=== PATIENT | male | born 1965 | race Hispanic/Latino ===

== ENCOUNTER 2021-03-18 23:41 | Emergency (ER) | payer OTHER ==
--- OUTSIDE RECORDS SUMMARY | 2021-03-18 23:44 | XMS REPORT | Continuity of Care Document ---
:1965 Author Organization [facility] t Address [address] [place] [address] Dr. Contreras [address] [place] [id number] Care Team Providers Name Role Phone Unavailable Unavailable Unavailable Problems This patient has no known problems. Allergies, Adverse Reactions, Alerts This patient has no known allergies or adverse reactions. Medications This patient has no known medications. Procedures This patient has no known procedures. Encounters Start End Encounter Admission Attending Care Care Encounter Source Date/Time Date/Time Type Type Clinicians Facility Department ID 2019-11-28 Outpatient [facility] [id number] [facility] 08:29:26 2019-10-30 2019-10-30 Inpatient E [facility] [address] [facility] 03:07:00 15:15:00 Results This patient has no known results.
[2021-03-19 00:58] LABS: BUN Blood Urea Nitrogen 13 mg/dL (7-18); Bicarbonate 32 mmol/L (21-32); Glucose Level 202 mg/dL (74-106); Potassium 3.5 mmol/L (3.5-5.1); Sodium Level 139 mmol/L (136-145)
[2021-03-19 00:59] LABS: ALT/SGPT 22 U/L (12-78); AST/SGOT 16 U/L (15-37); Albumin 3.5 g/dL (3.4-5.0); Alkaline Phosphatase 142 U/L (45-117); Bilirubin Direct 0.3 mg/dL (0-0.2); Bilirubin Total 0.8 mg/dL (0.2-1.0); Lipase 65 U/L (73-393)
[2021-03-19 01:06] LABS: Absolute Lymphocytes (CBC) 1.7 K/uL (0.7-4.9); Basophils % 0.5 % (0-1.3); Hematocrit 38.7 % (39.6-49.0); Lymphocytes % 21.6 % (15.3-44.8); MPV 11.3 fL (7.6-11.3); RBC Red Blood Cell Count 4.85 M/uL (4.33-5.43)
[2021-03-19] MEDS ORDERED: FENTANYL CITR 100 MCG/2 ML ONE (01:41)
[2021-03-19] MEDS ORDERED: ONDANSETRON 4 MG/2 ML VIAL ONE (01:42)
--- NOTE | 2021-03-19 02:06 | ER ---
Nurse's Notes [facility] Name: Tej Fragoso Age: 55 yrs Sex: Male : 1965 Arrival Date: 03/18/2021 Time: 23:43 Bed 6 Private MD: Diagnosis: Plantar fascitis ;Lymphedema, not elsewhere classified;Hyperglycemia, unspecified Presentation: 03/18 23:50 Chief complaint: EMS states: patient complaining of left leg swelling, pain and edema. rr5 23:50 Coronavirus screen: Client denies travel out of the [place] in the last 14 days. At this rr5 time, the client does not indicate any symptoms associated with coronavirus-19. Ebola Screen: Patient negative for fever greater than or equal to 101.5 degrees Fahrenheit, and additional compatible Ebola Virus Disease symptoms Patient denies exposure to infectious person. Patient denies travel to an Ebola-affected area in the 21 days before illness onset. Initial Sepsis Screen: Does the patient meet any 2 criteria? No. Patient's initial sepsis screen is negative. Does the patient have a suspected source of infection? Yes: Skin breakdown/wound. Risk Assessment: Do you want to hurt yourself or someone else? Patient reports no desire to harm self or others. Onset of symptoms was March 15, 2021. 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 - Social history:: Smoking status: unknown Patient/guardian denies using alcohol, street drugs. Screenin:58 Abuse screen: Denies threats or abuse. Denies injuries from another. Nutritional rr5 screening: No deficits noted. Tuberculosis screening: No symptoms or risk factors identified. Fall Risk IV access (20 points). Ambulatory Aid- None/Bed Rest/Nurse Assist (0 pts). Gait- Impaired (20 pts.). Total Sanchez Fall Scale indicates Low Risk Score (25-44 pts). Fall prevention measures have been instituted. Side Rails Up X 2 Placed close to Nursing Station Frequent Obs/Assesments occuring Family Present and informed to notify staff if they need to leave bedside As available Patient and Family Educated on Fall Prevention Program and strategies. Assessment: 03/19 00:33 General: Appears in no apparent distress. uncomfortable, obese, Behavior is calm, rr5 cooperative, appropriate for age. Pain: Complains of pain in left leg Pain currently is 8 out of 10 on a pain scale. Quality of pain is described as aching, Pain began gradually, Is intermittent. Neuro: Level of Consciousness is awake, alert, obeys commands, Oriented to person, place, time. Cardiovascular: Capillary refill < 3 seconds Patient's skin is warm and dry. Edema left leg. Respiratory: Airway is patent Respiratory effort is even, unlabored, Respiratory pattern is regular, symmetrical. GI: Abdomen is obese. : No signs and/or symptoms were reported regarding the genitourinary system. EENT: No signs and/or symptoms were reported regarding the EENT system. Derm: Skin temperature is warm. Musculoskeletal: Amputation of AKA Capillary refill < 3 seconds. 01:10 Reassessment: Patient appears in no apparent distress at this time. Patient and/or rr5 family updated on plan of care and expected duration. Pain level reassessed. Patient is alert, oriented x 3, equal unlabored respirations, skin warm/dry/pink. awaiting for results. 02:35 Reassessment: Patient appears in no apparent distress at this time. Patient is alert, rr5 oriented x 3, equal unlabored respirations, skin warm/dry/pink. discharge instruction given and explained without complaints made Patient states symptoms have improved. 02:36 Reassessment: awaiting for EMS transport going home. rr5 02:53 Reassessment: Patient and/or family updated on plan of care and expected duration. Pain ea level reassessed. Patient is alert, oriented x 3, equal unlabored respirations, skin warm/dry/pink. [facility] at facility for transport home. Pt left ED via stretcher per EMS. Pt tolerating well. Patient states symptoms have improved. Vital Signs: 03/18 23:50 BP 140 / 58; Pulse 88; Resp 20; Temp 98; Pulse Ox 94% ; Weight 158.76 kg; Height 6 ft. rr5 0 in. (182.88 cm); Pain 7/10; 05/25 00:38 BP 137 / 58; Pulse 80; Resp 19; Pulse Ox 95% ; rr5 01:20 BP 131 / 85; Pulse 70; Resp 17; Pulse Ox 97% ; rr5 02:36 BP 121 / 70; Pulse 75; Resp 18; Pulse Ox 98% ; rr5 03/18 23:50 Body Mass Index 47.47 (158.76 kg, 182.88 cm) rr5 ED Course: 03/18 23:43 Patient arrived in ED. mw2 23:44 Kurt Rodriguez MD is Attending Physician. tw4 23:54 Winston Faustin RN is Primary Nurse. rr5 23:57 Triage completed. rr5 23:58 Arm band placed on right wrist. rr5 23:58 Patient has correct armband on for positive identification. Placed in gown. Bed in low rr5 position. Call light in reach. Side rails up X2. chemistry technician on. Pulse ox on. NIBP on. 03/19 00:20 Inserted saline lock: 20 gauge in right hand, using aseptic technique. Blood collected. rr5 00:30 ultrasound at bedside. rr5 00:43 Extremity Venous Uni Ltd US In Process Unspecified. EDMS 01:59 Foot Left 3 View XRAY In Process Unspecified. EDMS 02:37 No provider procedures requiring assistance completed. IV discontinued, intact, rr5 bleeding controlled, No redness/swelling at site. Pressure dressing applied. Administered Medications: 01:25 Drug: Zofran (Ondansetron) 4 mg Route: IVP; Site: right hand; rr5 02:20 Follow up: Response: No adverse reaction rr5 01:28 Drug: fentaNYL (PF) 50 mcg {Note: rass 0.} Route: IVP; Site: right hand; rr5 02:20 Follow up: Response: No adverse reaction; RASS: Alert and Calm (0) rr5 Outcome: 02:05 Discharge ordered by . tw4 02:37 Discharged to home via ambulance, with family. rr5 02:37 Condition: stable 02:37 Discharge instructions given to patient, family, Instructed on discharge instructions, follow up and referral plans. medication usage, Demonstrated understanding of instructions, follow-up care, medications, Prescriptions given X 1. 02:59 Patient left the ED. ea Signatures: Dispatcher [facility] Corinna Wakefield RN RN ea Wadley, Terrence MD MD tw4 Rolando, June mw2 Winston Faustin RN RN rr5
--- NOTE | 2021-03-19 02:06 | EDPHYS ---
Physician Documentation [facility] Name: Tej Fragoso Age: 55 yrs Sex: Male : 1965 Arrival Date: 03/18/2021 Time: 23:43 Bed 6 Private MD: ED Physician Kurt Rodriguez HPI: 03/19 01:19 This 55 yrs old Male presents to ER via EMS with complaints of Leg Swelling. tw4 01:19 The patient presents with pain, swelling. The complaints affect the left quadriceps, tw4 left knee, left ramirez, anterior aspect of left ankle and dorsum of left foot. Context: The problem was sustained at home. Onset: The symptoms/episode began/occurred yesterday. Modifying factors: The symptoms are alleviated by nothing. the symptoms are aggravated by nothing. 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 - Social history:: Smoking status: unknown Patient/guardian denies using alcohol, street drugs. ROS: 03/19 01:22 Constitutional: Negative for fever, chills, and weight loss, Eyes: Negative for injury, tw4 pain, redness, and discharge, Cardiovascular: Negative for chest pain, palpitations, and edema, Respiratory: Negative for shortness of breath, cough, wheezing, and pleuritic chest pain, Abdomen/GI: Negative for abdominal pain, nausea, vomiting, diarrhea, and constipation, Back: Negative for injury and pain, Skin: Negative for injury, rash, and discoloration, Neuro: Negative for headache, weakness, numbness, tingling, and seizure. MS/extremity: Positive for pain, swelling. Exam: 01:22 Constitutional: This is a well developed, well nourished patient who is awake, alert, tw4 and in no acute distress. Head/Face: Normocephalic, atraumatic. Chest/axilla: Normal chest wall appearance and motion. Nontender with no deformity. No lesions are appreciated. Cardiovascular: Regular rate and rhythm with a normal S1 and S2. No gallops, murmurs, or rubs. Normal PMI, no JVD. No pulse deficits. Respiratory: Lungs have equal breath sounds bilaterally, clear to auscultation and percussion. No rales, rhonchi or wheezes noted. No increased work of breathing, no retractions or nasal flaring. Abdomen/GI: Soft, non-tender, with normal bowel sounds. No distension or tympany. No guarding or rebound. No evidence of tenderness throughout. Skin: Warm, dry with normal turgor. Normal color with no rashes, no lesions, and no evidence of cellulitis. Neuro: Awake and alert, GCS 15, oriented to person, place, time, and situation. Cranial nerves II-XII grossly intact. Motor strength 5/5 in all extremities. Sensory grossly intact. Cerebellar exam normal. Normal gait. Psych: Awake, alert, with orientation to person, place and time. Behavior, mood, and affect are within normal limits. 01:22 Musculoskeletal/extremity: Extremities: noted in the left knee, left ramirez, anterior aspect of left ankle and dorsum of left foot: pain, swelling. 04:30 Musculoskeletal/extremity: lymphedema present in entire left leg. tw4 Vital Signs: 03/18 23:50 BP 140 / 58; Pulse 88; Resp 20; Temp 98; Pulse Ox 94% ; Weight 158.76 kg; Height 6 ft. rr5 0 in. (182.88 cm); Pain 7/10; 03/19 00:38 BP 137 / 58; Pulse 80; Resp 19; Pulse Ox 95% ; rr5 01:20 BP 131 / 85; Pulse 70; Resp 17; Pulse Ox 97% ; rr5 02:36 BP 121 / 70; Pulse 75; Resp 18; Pulse Ox 98% ; rr5 03/18 23:50 Body Mass Index 47.47 (158.76 kg, 182.88 cm) rr5 MDM: 03/18 23:44 Patient medically screened. tw4 03/19 04:30 Differential diagnosis: dislocation, open fracture, closed fracture. Data reviewed: tw4 vital signs, nurses notes. Data interpreted: Pulse oximetry: Interpretation: normal. Test interpretation: by ED physician or midlevel provider: plain radiologic studies. Counseling: I had a detailed discussion with the patient and/or guardian regarding: the historical points, exam findings, and any diagnostic results supporting the discharge/admit diagnosis, radiology results. Medication response: fentanyl. Response to treatment: and as a result, I will discharge patient. Special discussion: I discussed with the patient/guardian in detail that at this point there is no indication for admission to the hospital. It is understood, however, that if the symptoms persist or worsen the patient needs to return immediately for re-evaluation. 03/19 00:01 Order name: Basic Metabolic Panel; Complete Time: 01:20 tw4 03/19 01:20 Interpretation: Normal except: GLUC 202. [facility] 03/19 00:01 Order name: CBC with Diff; Complete Time: 01:20 [facility] 03/19 01:20 Interpretation: Normal except: HGB 11.9; HCT 38.7; MCV 79.7; MCH 24.4; MCHC 30.7; RDW tw4 18.2; PLT 138. 03/19 00:01 Order name: Hepatic Function; Complete Time: 01:20 [facility] 03/19 00:01 Order name: Lipase; Complete Time: 01:20 [facility] 03/19 01:20 Interpretation: Abnormal: LIP 65. [facility] 03/19 00:01 Order name: Extremity Venous Uni Ltd 4 03/19 00:32 Order name: Glucose, Ancillary Testing; Complete Time: 01:20 [facility] 03/19 01:20 Interpretation: Abnormal: GLUC,ANCIL 190. 03/19 00:01 Order name: IV Saline Lock; Complete Time: 00:26 tw4 03/19 00:01 Order name: Labs collected and sent; Complete Time: 00: [facility] 03/19 01:20 Order name: Foot Left 3 View XRAY Administered Medications: : Drug: Zofran (Ondansetron) 4 mg Route: IVP; Site: right hand; rr5 02:20 Follow up: Response: No adverse reaction rr5 01:28 Drug: fentaNYL (PF) 50 mcg {Note: rass 0.} Route: IVP; Site: right hand; rr5 02:20 Follow up: Response: No adverse reaction; RASS: Alert and Calm (0) rr5 Disposition: 03/19/21 02:05 Discharged to Home. Impression: Plantar fascitis , Lymphedema, not elsewhere classified, Hyperglycemia, unspecified. - Condition is Stable. - Discharge Instructions: Hyperglycemia, Plantar Fasciitis, Lymphedema. - Prescriptions for Tramadol 50 mg Oral Tablet - take 1 tablet by ORAL route every 8 hours as needed; 12 tablet. - Medication Reconciliation Form, Thank You Letter, Antibiotic Education, Prescription Opioid Use form. - Follow up: Private Physician; When: Upon discharge from the Emergency Department; Reason: Recheck today's complaints, Continuance of care, Re-evaluation by your physician. Signatures: Dispatcher [employer] EDCorinna Mar RN RN ea Wadley, Terrence, MD MD tw4 Winston Faustin RN RN rr5 Corrections: (The following items were deleted from the chart) 02:05 02:05 03/19/2021 02:05 Discharged to Home. Impression: Plantar fascitis ; Lymphedema, tw4 not elsewhere classified. Condition is Stable. Forms are Medication Reconciliation Form, Thank You Letter, Antibiotic Education, Prescription Opioid Use. Follow up: Private Physician; When: Upon discharge from the Emergency Department; Reason: Recheck today's complaints, Continuance of care, Re-evaluation by your physician. tw4 02:59 02:05 03/19/2021 02:05 Discharged to Home. Impression: Plantar fascitis ; Lymphedema, ea not elsewhere classified; Hyperglycemia, unspecified. Condition is Stable. Forms are Medication Reconciliation Form, Thank You Letter, Antibiotic Education, Prescription Opioid Use. Follow up: Private Physician; When: Upon discharge from the Emergency Department; Reason: Recheck today's complaints, Continuance of care, Re-evaluation by your physician. tw4
[2021-03-19 03:15] VITALS: TEMP 98
[2021-03-19 03:21] VITALS: BP 121/70; O2SAT 98
--- NOTE | 2021-03-19 10:59 | RAD REPORT ---
EXAM DESCRIPTION: US EXTREMITY VENOUS UNI LTD 03/18/21 COMPARISON: 2018 TECHNIQUE: Left leg venous ultrasound FINDINGS: The left common femoral, left superficial femoral and left popliteal veins are compressible and demonstrate augmentation. Doppler demonstrates good flow. IMPRESSION: No evidence of left lower extremity deep venous thrombosis.
--- NOTE | 2021-03-19 13:10 | RAD REPORT ---
COMPARISON: None. INDICATION: [facility] MAIN PAIN FINDINGS: 3 views of the left foot demonstrate erosive changes of the distal metatarsals and interphalangeal joints. There is diffuse soft tissue swelling with probable foci of gas in the plantar tissues. IMPRESSION: Erosive changes of the distal metatarsals and interphalangeal joints may be due to osteopenia, erosive arthropathy, or infection. Foci of probable gas in the plantar tissues favor infection. Electronically signed by: Sage Ledesma MD 03/19/2021 2:20 AM CDT Due to temporary technical issues with the PACS/Fluency reporting system, reports are being signed by the in house radiologist without review as a courtesy to ensure prompt reporting. The interpreting radiologist is fully responsible for the content of the report.
== END 2021-03-19 02:59 | disposition home or self-care (01) ==
LOC: ER 23:41
DX: M72.2 Plantar fascial fibromatosis (principal); I89.0 Lymphedema, not elsewhere classified; E11.65 Type 2 diabetes mellitus with hyperglycemia; I10 Essential (primary) hypertension
CPT/HCPCS: 85025; 80048; 36415; 82947; 80076; 83690; 73630; 93971; J3010; J2405; 96374; 96375; 99285

== ENCOUNTER 2021-12-21 11:23 | Emergency (ER) | payer OTHER ==
--- OUTSIDE RECORDS SUMMARY | 2021-12-21 11:26 | XMS REPORT | Continuity of Care Document ---
:1965 Author Organization [facility] t Address [address] [place] [address] Care Team Providers Name Role Phone Natalio SMITH, Paddy Primary Care Physician Paddy Chapin MD Attending Clinician PADDY CHAPIN Attending Clinician Unavailable ANEANAYA Attending Clinician Unavailable Manuel HERNANDEZ Attending Clinician Unavailable Alexi ICT PROGRAMMER, Aquiles Attending Clinician Unavailable Manuel Hernandez MD Attending Clinician Anna PTAmada Attending Clinician Unavailable Doctor Unassigned, Name Attending Clinician Unavailable Payers Payer Name Policy Type Policy Number Effective Date Expiration Date S anmol MEDICARE PART A [id number] 2017 \T\ B 00:00:00 Problems Condition Condition Condition Status Onset Resolution Last Treating Co mments Source Name Details Category Date Date Treatment Clinician Date Chronic Chronic Disease Active 2019-10 Univers edema edema 1-12 ity of 00:00: [address] 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 Uni vers (above (above 1-12 ity of knee knee 00:00: [place] amputation amputation 00 Me dical ), right ), right Branch Allergies, Adverse Reactions, Alerts Allergy Allergy Status Severity Reaction(s) Onset Inactive Treating Comm ents Source Name Type Date Date Clinician NO KNOWN Drug Active Univers ALLERGIE Class ity of S [facility] Social History Social Habit Start Date Stop Date Quantity Comments Source Alcohol intake 2020-06-25 2020-06-25 Ex-drinker University of 00:00:00 00:00:00 (finding) [facility] Tobacco use and 2019-11-25 2019-11-25 Never used Universit y of exposure 00:00:00 00:00:00 [facility] Sex [birth year] Universit y of 00:00:00 00:00:00 [facility] Smoking Status Start Date Stop Date Source Unknown if ever smoked Universit y [facility] Never smoker [facility] Medications Ordered Filled Start Stop Current Ordering Indication Dosage Frequency Signature Comments Components Source Medication Medication Date Date Medication? Clinician (SIG) Name Name GLIPIZIDE 2020-10 Yes [id number] TAKE ONE Univers 10 mg 0-26 TABLET BY ity of tablet 00:00: [facility] DAILY Medical Branch GLIPIZIDE 2020-10 Yes [id number] TAKE ONE Univers 10 mg 0-26 TABLET BY ity of tablet 00:00: [facility] DAILY Medical Branch GLIPIZIDE 2020-10 Yes [id number] TAKE ONE Univers 10 mg 0-26 TABLET BY ity of tablet 00:00: [facility] DAILY Medical Branch GLIPIZIDE 2020-10 Yes [id number] TAKE ONE Univers 10 mg 0-19 TABLET BY ity of tablet 00:00: [facility] DAILY Medical Branch GLIPIZIDE 2020-10- No [id number] TAKE ONE Univers 10 mg 0-19 10-26 TABLET BY ity of tablet 00:00: 00:00 [facility] 00 :00 DAILY Medical Branch PIOGLITAZON Yes TAKE ONE Un senthil E 30 mg 9-20 TABLET BY ity of tablet 00:00: [facility] DAILY Medical Branch TRIAMTERENE Yes [id number] TAKE ONE Univers -HYDROCHLOR 9-20 CAPSULE BY it y of OTHIAZIDE 00:00: [facility] 37.5-25 mg 00 EVERY Medical per capsule MORNING Branc h BUMETANIDE Yes [id number] TAKE ONE Univers 1 mg tablet 9-20 TABLET BY ity of 00:00: [facility] DAILY Medical Branch PIOGLITAZON Yes TAKE ONE Un senthil E 30 mg 9-20 TABLET BY ity of tablet 00:00: [facility] DAILY Medical Branch TRIAMTERENE Yes [id number] TAKE ONE Univers -HYDROCHLOR 9-20 CAPSULE BY it y of OTHIAZIDE 00:00: [facility] 37.5-25 mg 00 EVERY Medical per capsule MORNING Branc h BUMETANIDE Yes [id number] TAKE ONE Univers 1 mg tablet 9-20 TABLET BY ity of 00:00: MOUTH [place] 00 DAILY Medical Branch PIOGLITAZON Yes TAKE ONE Un senthil E 30 mg 9-20 TABLET BY ity of tablet 00:00: MOUTH [place] 00 DAILY Medical Branch TRIAMTERENE Yes [id number] TAKE ONE Univers -HYDROCHLOR 9-20 CAPSULE BY it y of OTHIAZIDE 00:00: MOUTH [place] 37.5-25 mg 00 EVERY Medical per capsule MORNING Bran h BUMETANIDE Yes [id number] TAKE ONE Univers 1 mg tablet 9-20 TABLET BY ity of 00:00: MOUTH 00 DAILY Medical Branch PIOGLITAZON Yes TAKE ONE Un senthil E 30 mg 9-20 TABLET BY ity of tablet 00:00: MOUTH DAILY Medical Branch TRIAMTERENE Yes [id number] TAKE ONE Univers -HYDROCHLOR 9-20 CAPSULE BY it y of OTHIAZIDE 00:00: MOUTH [place] 37.5-25 mg 00 EVERY Medical per capsule MORNING Bran h BUMETANIDE Yes [id number] TAKE ONE Univers 1 mg tablet 9-20 TABLET BY ity of 00:00: MOUTH DAILY Medical Branch PIOGLITAZON Yes TAKE ONE Un senthil E 30 mg 9-20 TABLET BY ity of tablet 00:00: MOUTH 00 DAILY Medical Branch TRIAMTERENE Yes [id number] TAKE ONE Univers -HYDROCHLOR 9-20 CAPSULE BY it y of OTHIAZIDE 00:00: MOUTH [place] 37.5-25 mg 00 EVERY Medical per capsule MORNING Bran h BUMETANIDE Yes [id number] TAKE ONE Univers 1 mg tablet 9-20 TABLET BY ity of 00:00: MOUTH DAILY Medical Branch metFORMIN 2020-0 Yes [id number] TAKE ONE Univers 500 mg 8-31 TABLET BY ity of tablet 00:00: MOUTH [place] 00 TWICE A Medical DAY WITH Branch MEALS metFORMIN 2020-0 Yes [id number] TAKE ONE Univers 500 mg 8-31 TABLET BY ity of tablet 00:00: MOUTH 00 TWICE A Medical DAY WITH Branch MEALS metFORMIN 2020-0 Yes [id number] TAKE ONE Univers 500 mg 8-31 TABLET BY ity of tablet 00:00: MOUTH [place] TWICE A Medical DAY WITH Branch MEALS metFORMIN 2020-0 Yes [id number] TAKE ONE Univers 500 mg 8-31 TABLET BY ity of tablet 00:00: MOUTH [place] TWICE A Medical DAY WITH Branch MEALS metFORMIN 2020-0 Yes [id number] TAKE ONE Univers 500 mg 8-31 TABLET BY ity of tablet 00:00: MOUTH [place] TWICE A Medical DAY WITH Branch MEALS metFORMIN 2020-0 Yes [id number] TAKE ONE Univers 500 mg 8-31 TABLET BY ity of tablet 00:00: MOUTH [place] TWICE A Medical DAY WITH Branch MEALS ATORVASTATI 2020-0 Yes TAKE ONE Un senthil N 40 mg 8-19 TABLET BY ity of tablet 00:00: MOUTH AT [place] BEDTIME Medical Branch ATORVASTATI 2020-0 Yes TAKE ONE Un senthil N 40 mg 8-19 TABLET BY ity of tablet 00:00: MOUTH AT [place] BEDTIME Medical Branch ATORVASTATI 2020-0 Yes TAKE ONE Un senthil N 40 mg 8-19 TABLET BY ity of tablet 00:00: MOUTH AT [place] BEDTIME Medical Branch ATORVASTATI 2020-0 Yes TAKE ONE Un senthil N 40 mg 8-19 TABLET BY ity of tablet 00:00: MOUTH AT [place] BEDTIME Medical Branch ATORVASTATI 2020-0 Yes TAKE ONE Un senthil N 40 mg 8-19 TABLET BY ity of tablet 00:00: MOUTH AT [place] BEDTIME Medical Branch ATORVASTATI 2020-0 Yes TAKE ONE Un senthil N 40 mg 8-19 TABLET BY ity of tablet 00:00: MOUTH AT [place] BEDTIME Medical Branch GLIPIZIDE 2020-0 Yes [id number] TAKE ONE Univers 10 mg 8-16 TABLET BY ity of tablet 00:00: MOUTH [place] DAILY Medical Branch GLIPIZIDE 2020-0 Yes [id number] TAKE ONE Univers 10 mg 8-16 TABLET BY ity of tablet 00:00: MOUTH [place] 00 DAILY Medical Branch GLIPIZIDE 2020-0 2021- No [id number] TAKE ONE Univers 10 mg 8-16 10-19 TABLET BY ity of tablet 00:00: 00:00 MOUTH [place] 00 :00 DAILY Medical Branch BUMETANIDE 2020-0 Yes [id number] TAKE ONE Univers 1 mg tablet 7-27 TABLET BY ity of 00:00: MOUTH DAILY Medical Branch TRIAMTERENE 0 Yes [id number] TAKE ONE Univers -HYDROCHLOR 7-27 CAPSULE BY it y of OTHIAZIDE 00:00: MOUTH [place] 37.5-25 mg 00 EVERY Medical per capsule MORNING Branc h BUMETANIDE 2020-0 2020- No [id number] TAKE ONE Univers 1 mg tablet 7- 09-20 TABLET BY it y of 00:00: 00:00 MOUTH [place] 00 :00 DAILY Medical Branch TRIAMTERENE 2020-0 2020- No [id number] TAKE ONE Univers -HYDROCHLOR 7-27 -20 CAPSULE BY i ty of OTHIAZIDE 00:00: 00:00 MOUTH [place] 37.5-25 mg 00 :00 EVERY Medical per capsule MORNING Branc h KCL 10 mEq 2020-0 Yes [id number] TAKE ONE Univers tablet 7-21 TABLET BY ity of 00:00: MOUTH DAILY Medical Branch KCL 10 mEq 2020-0 Yes [id number] TAKE ONE Univers tablet 7-21 TABLET BY ity of 00:00: MOUTH [place] DAILY Medical Branch KCL 10 mEq 2020-0 Yes [id number] TAKE ONE Univers tablet 7-21 TABLET BY ity of 00:00: MOUTH DAILY Medical Branch KCL 10 mEq 2020-0 Yes [id number] TAKE ONE Univers tablet 7-21 TABLET BY ity of 00:00: MOUTH [place] DAILY Medical Branch KCL 10 mEq 2020-0 Yes [id number] TAKE ONE Univers tablet 7-21 TABLET BY ity of 00:00: [facility] DAILY Medical Branch KCL 10 mEq 2020-0 Yes [id number] TAKE ONE Univers tablet 7-21 TABLET BY ity of 00:00: MOUTH [place] DAILY Medical Branch metFORMIN 2020-0 2020- No [id number] TAKE ONE Univers 500 mg 6-21 08-31 TABLET BY ity of tablet 00:00: 00:00 MOUTH [place] 00 :00 TWICE A Medical DAY WITH Branch MEALS PIOGLITAZON 2020-0 Yes TAKE ONE Un senthil E 30 mg 6-16 TABLET BY ity of tablet 00:00: MOUTH [place] DAILY Medical Branch PIOGLITAZON 2020-0 2021- No TAKE ONE U nivers E 30 mg 6-16 09-20 TABLET BY ity of tablet 00:00: 00:00 MOUTH [place] 00 :00 DAILY Medical Branch exenatide 2020-0 Yes [id number] 2mg inject Un senthil microsphere 4-21 0.65 mL ity o f s 00:00: under the [place] (BYDUREON) 00 skin Medical 2 mg/0.65 weekly. Branch mL injection exenatide 2020-0 Yes [id number] 2mg inject Un senthil microsphere 4-21 0.65 mL ity o f s 00:00: under the [place] (BYDUREON) 00 skin Medical 2 mg/0.65 weekly. Branch mL injection exenatide 2020-0 Yes [id number] 2mg inject Un senthil microsphere 4-21 0.65 mL ity o f s 00:00: under the [place] (BYDUREON) 00 skin Medical 2 mg/0.65 weekly. Branch mL injection exenatide 2020-0 Yes [id number] 2mg inject Un senthil microsphere 4-21 0.65 mL ity o f s 00:00: under the [place] (BYDUREON) 00 skin Medical 2 mg/0.65 weekly. Branch mL injection exenatide 2020-0 Yes [id number] 2mg inject Un senthil microsphere 4-21 0.65 mL ity o f s 00:00: under the [place] (BYDUREON) 00 skin Medical 2 mg/0.65 weekly. Branch mL injection exenatide 2020-0 Yes [id number] 2mg inject Un senthil microsphere 4-21 0.65 mL ity o f s 00:00: under the [place] (BYDUREON) 00 skin Medical 2 mg/0.65 weekly. Branch mL injection traMADoL 50 2020-0 Yes [id number] 50mg Take 1 Univ ers mg tablet 3-19 tablet by ity o f 00:00: mouth [place] 00 every 6 Medical (six) Branch hours as needed for Pain (scale 4-6). Indication s: acute pain exenatide 2020-0 Yes [id number] 2mg inject 2 Univers microsphere 3-19 mg under ity of s 2 mg 00:00: the skin [place] injection 00 every 7 Medical (seven) Branch days. traMADoL 50 2020-0 Yes [id number] 50mg Take 1 Univ ers mg tablet 3-19 tablet by ity o f 00:00: mouth [place] 00 every 6 Medical (six) Branch hours as needed for Pain (scale 4-6). Indication s: acute pain exenatide 2020-0 Yes [id number] 2mg inject 2 Univers microsphere 3-19 mg under ity of s 2 mg 00:00: the skin [place] injection 00 every 7 Medical (seven) Branch days. traMADoL 50 2020-0 Yes [id number] 50mg Take 1 Univ ers mg tablet 3-19 tablet by ity o f 00:00: mouth [place] 00 every 6 Medical (six) Branch hours as needed for Pain (scale 4-6). Indication s: acute pain exenatide 2020-0 Yes [id number] 2mg inject 2 Univers microsphere 3-19 mg under ity of s 2 mg 00:00: the skin [place] injection 00 every 7 Medical (seven) Branch days. traMADoL 50 0 Yes [id number] 50mg Take 1 Univ ers mg tablet 3-19 tablet by ity o f 00:00: mouth [place] 00 every 6 Medical (six) Branch hours as needed for Pain (scale 4-6). Indication s: acute pain exenatide 2020-0 Yes [id number] 2mg inject 2 Univers microsphere 3-19 mg under ity of s 2 mg 00:00: the skin [place] injection 00 every 7 Medical (seven) Branch days. traMADoL 50 2020-0 Yes [id number] 50mg Take 1 Univ ers mg tablet 3-19 tablet by ity o f 00:00: mouth [place] 00 every 6 Medical (six) Branch hours as needed for Pain (scale 4-6). Indication s: acute pain exenatide 2020-0 Yes [id number] 2mg inject 2 Univers microsphere 3-19 mg under ity of s 2 mg 00:00: the skin [place] injection 00 every 7 Medical (seven) Branch days. traMADoL 50 2020-0 Yes [id number] 50mg Take 1 Univ ers mg tablet 3-19 tablet by ity o f 00:00: mouth [place] 00 every 6 Medical (six) Branch hours as needed for Pain (scale 4-6). Indication s: acute pain exenatide 2020-0 Yes [id number] 2mg inject 2 Univers microsphere 3-19 mg under ity of s 2 mg 00:00: the skin [place] injection 00 every 7 Medical (seven) Branch days. traMADol 50 2020-0 Yes [id number] 50mg Take 1 Univers mg tablet 2-26 [id number] tablet by ity of 00:00: mouth [place] 00 every 6 Medical (six) Branch hours as needed (pain). exenatide 2020-0 Yes [id number] 2mg inject 2 Univers microsphere 2-26 mg under ity of s 2 mg 00:00: the skin [place] injection 00 every 7 Medical (seven) Branch days. metFORMIN 2020-0 Yes 500mg Take 500 Uni vers 500 mg 1-31 mg by ity of tablet 20:46: mouth 2 [place] [address] (two) Medical times [place] daily with meals. atorvastati 2020-0 Yes 40mg Take 40 mg Univers n 40 mg 1-31 by mouth ity of tablet 20:46: at [place] [address] bedtime. Medical Branch pioglitazon 2020-0 Yes 30mg Take 30 mg Univers e 30 mg 1-31 by mouth ity of tablet 20:46: daily. [address] glipiZIDE 2020-0 Yes 10mg Take 10 mg Un senthil 10 mg 1-31 by mouth ity of tablet 20:46: daily. [address] metFORMIN 2020-0 Yes 500mg Take 500 Uni vers 500 mg 1-31 mg by ity of tablet 20:46: mouth 2 [place] [address] ([facility]) Medical times [place] daily with meals. atorvastati 2020-0 Yes 40mg Take 40 mg Univers n 40 mg 1-31 by mouth ity of tablet 20:46: at [place] [address] bedtime. Medical Branch pioglitazon 2020-0 Yes 30mg Take 30 mg Univers e 30 mg 1-31 by mouth ity of tablet 20:46: daily. [address] glipiZIDE 2020-0 Yes 10mg Take 10 mg Un senthil 10 mg 1-31 by mouth ity of tablet 20:46: daily. [address] metFORMIN 2020-0 Yes 500mg Take 500 Uni vers 500 mg 1-31 mg by ity of tablet 20:46: mouth 2 [place] [address] [address]) Medical times [place] daily with meals. atorvastati 2020-0 Yes 40mg Take 40 mg Univers n 40 mg 1-31 by mouth ity of tablet 20:46: at [place] [address] bedtime. Medical Branch pioglitazon 2020-0 Yes 30mg Take 30 mg Univers e 30 mg 1-31 by mouth ity of tablet 20:46: daily. [address] glipiZIDE 2020-0 Yes 10mg Take 10 mg Un senthil 10 mg 1-31 by mouth ity of tablet 20:46: daily. [address] metFORMIN 2020-0 Yes 500mg Take 500 Uni vers 500 mg 1-31 mg by ity of tablet 20:46: mouth 2 [place] [address] [address]) [facility] times [place] daily with meals. atorvastati 2020-0 Yes 40mg Take 40 mg Univers n 40 mg 1-31 by mouth ity of tablet 20:46: at [place] [address] bedtime. Medical Branch pioglitazon 2020-0 Yes 30mg Take 30 mg Univers e 30 mg 1-31 by mouth ity of tablet 20:46: daily. [address] glipiZIDE 2020-0 Yes 10mg Take 10 mg Un senthil 10 mg 1-31 by mouth ity of tablet 20:46: daily. [address] metFORMIN 2020-0 Yes 500mg Take 500 Uni vers 500 mg 1-31 mg by ity of tablet 20:46: mouth 2 [place] [address] [address]) [facility] daily with meals. atorvastati 2020-0 Yes 40mg Take 40 mg Univers n 40 mg 1-31 by mouth ity of tablet 20:46: at [place] [address] bedtime. Medical Branch pioglitazon 2020-0 Yes 30mg Take 30 mg Univers e 30 mg 1-31 by mouth ity of tablet 20:46: daily. [address] glipiZIDE 2020-0 Yes 10mg Take 10 mg Un senthil 10 mg 1-31 by mouth ity of tablet 20:46: daily. [address] metFORMIN 2020-0 Yes 500mg Take 500 Uni vers 500 mg 1-31 mg by ity of tablet 20:46: mouth 2 [place] [address] [address]) [facility] times [place] daily with meals. atorvastati 2020-0 Yes 40mg Take 40 mg Univers n 40 mg 1-31 by mouth ity of tablet 20:46: at [place] [address] bedtime. Medical Branch pioglitazon 2020-0 Yes 30mg Take 30 mg Univers e 30 mg 1-31 by mouth ity of tablet 20:46: daily. [address] glipiZIDE 2020-0 Yes 10mg Take 10 mg Un senthil 10 mg 1-31 by mouth ity of tablet 20:46: daily. [address] metFORMIN 2020-0 Yes 500mg Take 500 Uni vers 500 mg 1-31 mg by ity of tablet 20:46: mouth 2 [place] [address] (two) Medical times Branch daily with meals. atorvastati 2020-0 Yes 40mg Take 40 mg Univers n 40 mg 1-31 by mouth ity of tablet 20:46: at [place] [address] bedtime. Medical Branch pioglitazon 2020-0 Yes 30mg Take 30 mg Univers e 30 mg 1-31 by mouth ity of tablet 20:46: daily. [place] [address] Medical Branch glipiZIDE 2020-0 Yes 10mg Take 10 mg Un senthil 10 mg 1-31 by mouth ity of tablet 20:46: daily. [place] [address] Medical Branch amoxicillin 2020-0 Yes [id number] 1{tbl} Take 1 Univers -clavulanat 1-31 [id number] tablet by i ty of e 00:00: mouth 2 [place] (AUGMENTIN) 00 (two) Medical 875-125 mg times Branch per tablet daily. sulfamethox 2020-0 Yes [id number] 1{tbl} Take 1 Univers azole-trime 1- [id number] tablet by i ty of thoprim 00:00: mouth 2 [place] 800-160 mg 00 (two) Medical per tablet times Branch daily. traMADol 50 2020-0 Yes [id number] 50mg Take 1 Univers mg tablet - [id number] tablet by ity of 00:00: mouth [place] 00 every 6 Medical (six) Branch hours as needed (pain). amoxicillin 2020-0 Yes [id number] 1{tbl} Take 1 Univers -clavulanat 1-31 [id number] tablet by i ty of e 00:00: mouth 2 [place] (AUGMENTIN) 00 (two) Medical 875-125 mg times Branch per tablet daily. sulfamethox 2020-0 Yes [id number] 1{tbl} Take 1 Univers azole-trime 1-31 [id number] tablet by i ty of thoprim 00:00: mouth 2 [place] 800-160 mg 00 (two) Medical per tablet times Branch daily. traMADol 50 2020-0 Yes [id number] 50mg Take 1 Univers mg tablet 1-31 [id number] tablet by ity of 00:00: mouth [place] 00 every 6 Medical (six) Branch hours as needed (pain). amoxicillin 2020-0 Yes [id number] 1{tbl} Take 1 Univers -clavulanat 1-31 [id number] tablet by i ty of e 00:00: mouth 2 [place] (AUGMENTIN) 00 (two) Medical 875-125 mg times Branch per tablet daily. sulfamethox 2020-0 Yes [id number] 1{tbl} Take 1 Univers azole-trime 1-31 [id number] tablet by i ty of thoprim 00:00: mouth 2 [place] 800-160 mg 00 (two) Medical per tablet times Branch daily. traMADol 50 2020-0 Yes [id number] 50mg Take 1 Univers mg tablet 1-31 [id number] tablet by ity of 00:00: mouth [place] 00 every 6 Medical (six) Branch hours as needed (pain). amoxicillin 2020-0 Yes [id number] 1{tbl} Take 1 Univers -clavulanat 1-31 [id number] tablet by i ty of e 00:00: mouth 2 [place] (AUGMENTIN) 00 (two) Medical 875-125 mg times Branch per tablet daily. sulfamethox 2020-0 Yes [id number] 1{tbl} Take 1 Univers azole-trime 1-31 [id number] tablet by i ty of thoprim 00:00: mouth 2 [place] 800-160 mg 00 (two) Medical per tablet times Branch daily. traMADol 50 2020-0 Yes [id number] 50mg Take 1 Univers mg tablet 1- 051500 tablet by ity of 00:00: mouth [place] 00 every 6 Medical (six) Branch hours as needed (pain). amoxicillin 2020-0 Yes [id number] 1{tbl} Take 1 Univers -clavulanat 1-31 [id number] tablet by i ty of e 00:00: mouth 2 [place] (AUGMENTIN) 00 (two) Medical 875-125 mg times Branch per tablet daily. sulfamethox 2020-0 Yes [id number] 1{tbl} Take 1 Univers azole-trime 1-31 [id number] tablet by i ty of thoprim 00:00: mouth 2 [place] 800-160 mg 00 (two) Medical per tablet times Branch daily. traMADol 50 2020-0 Yes [id number] 50mg Take 1 Univers mg tablet 1-31 [id number] tablet by ity of 00:00: mouth [place] 00 every 6 Medical (six) Branch hours as needed (pain). amoxicillin 2020-0 Yes [id number] 1{tbl} Take 1 Univers -clavulanat 1-31 [id number] tablet by i ty of e 00:00: mouth 2 [place] (AUGMENTIN) 00 (two) Medical 875-125 mg times Branch per tablet daily. sulfamethox 2020-0 Yes [id number] 1{tbl} Take 1 Univers azole-trime 11-25 [id number] tablet by i ty of thoprim 00:00: mouth 2 [place] 800-160 mg 00 (two) Medical per tablet times Branch daily. traMADol 50 2019-0 Yes [id number] 50mg Take 1 Univers mg tablet 11-25 [id number] tablet by ity of 00:00: mouth [place] 00 every 6 Medical (six) Branch hours as needed (pain). amoxicillin 2020- No [id number] 1{tbl} Take 1 Univers -clavulanat 11-25 [id number] tablet by ity of e 00:00: 00:00 mouth 2 [place] (AUGMENTIN) 00 :00 (two) Medical 875-125 mg times Branch per tablet daily. sulfamethox 2019- 2020- No [id number] 1{tbl} Take 1 Univers azole-trime 11-25 [id number] tablet by ity of thoprim 00:00: 00:00 mouth 2 [place] 800-160 mg 00 :00 (two) Medical per tablet times Branch daily. traMADol 50 2019-0 2020- No [id number] 50mg Take 1 Univers mg tablet 11-25 [id number] tablet by it y of 00:00: 00:00 mouth [place] 00 :00 every 6 Medical (six) Branch hours as needed (pain). No known No Univers medications [facility] Vital Signs Vital Name Observation Time Observation Value Comments Source Systolic blood 2019-12-21 17:49:00 110 mm[Hg] Univer [facility]ity [facility] Diastolic blood 2019-12-21 17:49:00 41 mm[Hg] [facility] Heart rate 2019-12-21 17:49:00 79 [facility] Body temperature 2019-12-21 17:49:00 36.78 Yesenia [facility] Respiratory rate 2019-12-21 17:49:00 18 /min [facility] Procedures Procedure Date / Time Performing Clinician Source Performed PATIENT QUESTIONNAIRE 2019-11-22 06:01:00 Doctor Unassigned, No [facility] Name Medical Branch REFERRAL- 2019-11-11 06:01:00 Doctor Unassigned, No [facility] REQUEST/RESPONSE Name Medical [place] Encounters Start End Encounter Admission Attending Care Care Encounter Source Date/Time Date/Time Type Type Clinicians Facility Department ID 2021-08-23 Emergency [facility] [id number] Univers 14:59:58 ity of [facility] 2019-11-28 Outpatient [facility] [id number] MH 08:29:26 2021-11-29 2021-11-29 [facility] [id number] Univers 00:00:00 00:00:00 Logan GUNN [id number] i ty of [facility] [facility] [id number] [phone] [address] 2021-09-12 2021-09-12 [facility] [id number] Univers 00:00:00 00:00:00 Logan GUNN [id number] i ty of [facility] [id number] [phone] [address] 2021-08-19 2021-08-19 [facility] [id number] Univers 00:00:00 00:00:00 Logan Gunn [id number] i ty of [place] [employer] [id number] [id number] [address] 2021-08-13 2021-08-13 [facility] [id number] Univers 00:00:00 00:00:00 Logan Gunn [id number] i ty of [place] [employer] [id number] [id number] [address] 2021-07-13 2021-07-13 [facility] [id number] Univers 00:00:00 00:00:00 Logan Allons [id number] i ty of Paddy Ogles[place] [id number] [place] [phone] Co jodi michael [address] [place] [address] 2021-06-24 2021-06-24 [facility] [id number] [id number] Univers 00:00:00 00:00:00 [facility] [id number] it y of Paddy Gunn [id number] Geo as Jak?Blea [phone] Co jodi yadav [address] [place] [address] Medical Office [facility] 2020-09-05 2020-09-05 Outpatient Arleth CHAPIN [facility] [id number] Univers 14:00:00 14:00:00 LOGAN [id number] [facility] 2020-09-05 2020-09-05 [id number] Univers 10:15:00 10:15:00 LOGAN [facility] 2020-06-25 2020-06-25 Outpatient [facility] [id number] Univers 11:40:00 11:40:00 [id number] [facility] 2020-06-25 2020-06-25 Outpatient Arleth ALANIZ [facility] [id number] Univers 11:40:00 11:40:00 KATE [facility] 2020-06-06 2020-06-06 Outpatient Arleth CHAPIN [facility] [id number] Univers 15:45:00 15:45:00 LOGAN [facility] 2020-06-06 2020-06-06 Outpatient Arleth CHAPIN [facility] [id number] Univers 13:45:00 13:45:00 LOGAN [id number] [facility] 2020-05-09 2020-05-09 Outpatient Arleth CHAPIN [facility] [id number] Univers 16:15:00 16:15:00 LOGAN [id number] [facility] [facility] 2020-05-09 2020-05-09 Outpatient Arleth CHAPIN [facility] [id number] Univers 16:15:00 16:15:00 LOGAN [facility] 2020-03-20 2020-03-20 Outpatient R NATALIO [facility] [id number] Univers 09:15:00 09:15:00 LOGAN [id number] ity of [facility] 2020-03-20 2020-03-20 Outpatient R NATALIO [facility] [id number] Univers 09:15:00 09:15:00 LOGAN ity of [facility] 2020-02-29 2020-02-29 Outpatient [facility] [id number] Univers 11:20:00 11:20:00 ity of [facility] 2020-02-27 2020-02-27 Outpatient R [facility] [id number] Univers 11:20:00 11:20:00 ity of [facility] 2020-02-22 2020-02-22 Outpatient [facility] [id number] Univers 11:00:00 11:00:00 [id number] ity of [facility] 2020-02-20 2020-02-20 Outpatient [facility] [id number] Univers 10:40:00 10:40:00 [id number] ity of [facility] 2020-02-15 2020-02-15 Outpatient [facility] [id number] Univers 11:20:00 11:20:00 [id number] ity of [facility] 2020-02-13 2020-02-13 Outpatient R [facility] [id number] Univers 11:00:00 11:00:00 [id number] ity of [facility] 2020-02-08 2020-02-08 Outpatient [facility] [id number] Univers 11:00:00 11:00:00 [id number] ity of [facility] 2020-02-06 2020-02-06 Outpatient R [facility] [id number] Univers 11:00:00 11:00:00 [id number] ity of [facility] 2020-02-01 2020-02-01 Outpatient [facility] [id number] Univers 11:00:00 11:00:00 [id number] ity of [facility] 2020-01-30 2020-01-30 Outpatient R [facility] [id number] Univers 11:00:00 11:00:00 ity of [facility] 2020-01-25 2020-01-25 Outpatient [facility] [id number] Univers 11:00:00 11:00:00 ity of [facility] 2020-01-25 2020-01-25 Outpatient R RENEE [facility] [id number] Univers 11:00:00 11:00:00 JULISA ity of [facility] 2020-01-23 2020-01-23 Outpatient R [facility] [id number] Univers 10:00:00 10:00:00 [id number] ity of [facility] 2020-01-19 2020-01-19 Outpatient [facility] [id number] Univers 10:00:00 10:00:00 [id number] ity of [facility] 2020-01-18 2020-01-18 Outpatient R [facility] [id number] Univers 11:00:00 11:00:00 [id number] ity of [facility] 2020-01-17 2020-01-17 Outpatient R [facility] [id number] Univers 11:00:00 11:00:00 [id number] ity of [facility] 2020-01-16 2020-01-16 Outpatient R [facility] [id number] Univers 14:00:00 14:00:00 [id number] ity of [facility] 2020-01-12 2020-01-12 Outpatient [facility] [id number] Univers 15:00:00 15:00:00 [id number] ity of [facility] 2020-01-10 2020-01-10 Outpatient R [facility] [id number] Univers 15:40:00 15:40:00 [id number] ity of [facility] 2020-01-06 2020-01-06 Outpatient R [facility] [id number] Univers 13:40:00 13:40:00 [id number] ity of [facility] 2020-01-03 2020-01-03 Outpatient [facility] [id number] Univers 14:40:00 14:40:00 ity of [facility] 2019-12-29 2019-12-29 Outpatient [facility] [id number] Univers 09:20:00 09:20:00 [id number] ity of [facility] 2019-12-29 2019-12-29 Outpatient R RENEE [facility] [id number] Univers 09:20:00 09:20:00 JULISA ity of [facility] 2019-12-27 2019-12-27 Outpatient [facility] [id number] Univers 09:00:00 09:00:00 [id number] ity of [facility] 2019-12-21 2019-12-21 Office Natalio [facility] 1.2.840.114 [id number] Univers 11:42:25 11:57:25 Visit [facility] [id number] it y of [place] [id number] [place] Profess[place] [phone] Co dical [facility] [address] [place] [facility] 2019-12-21 2019-12-21 Outpatient R NATALIO [facility] [id number] Univers 11:30:00 11:30:00 LOGAN [id number] ity of [facility] 2019-12-21 2019-12-21 Outpatient R NATALIO [facility] [id number] Univers 11:30:00 11:30:00 LOGAN y [facility] 2019-12-20 2019-12-20 Outpatient R [facility] [id number] Univers 09:00:00 09:00:00 ity of [facility] 2019-12-16 2019-12-16 Ancillary Veronica Truong [facility] 1.2.840 .114 [id number] Univers 10:07:00 11:07:00 Visit Julisa Hernandez [id number] [id number] [phone] Co dical nal [address] [facility] 2019-12-14 2019-12-14 Ancillary Veronica Truong [facility] 1.2.840 .114 [id number] Univers 09:52:14 10:52:14 Visit Julisa Hernandez [id number] ity of [id number] [phone] Co dical nal [address] [facility] 2019-12-09 2019-12-09 Ancillary Veronica Truong [facility] 1.2.840 .114 [id number] Univers 08:52:58 10:16:26 Visit Julisa Hernandez [id number] ity of [id number] [phone] Co dical nal [address] [facility] 2019-12-07 2019-12-07 Ancillary Veronica Truong [facility] 1.2.840 .114 [id number] [facility] 08:58:57 09:58:57 Visit Hernandez Julisa Gunn [id number] ity of [id number] [phone] Co dical nal [address] [facility] 2019-12-02 2019-12-02 Ancillary Veronica Truong [facility] 1.2.840 .114 [id number] [facility] 08:47:35 09:47:35 Visit Julisa Hernandez [id number] ity of [id number] [phone] Co dical nal [address] [facility] 2019-11-18 2019-11-30 Ancillary Stacy Castilloasher Ybarra [facility] 1.2.840. 114 [id number] Univers 09:11:00 12:53:31 Visit Julisa Hernandez [id number] ity [id number] [phone] Co dical nal [address] [facility] 2019-11-30 2019-11-30 Ancillary Veronica Truong [facility] 1.2.840 .114 [id number] Univers 08:42:50 09:42:50 Visit Julisa Hernandez [id number] ity of [id number] [phone] Co dical nal [address] [facility] 2019-11-24 2019-11-24 Ancillary Veronica Truong [facility] 1.2.840 .114 [id number] Univers 08:48:05 15:06:52 Visit Julisa Hernandez [id number] ity of [id number] [phone] Co dical nal [address] [facility] 2019-11-22 2019-11-22 Ancillary Veronica Truong [facility] 1.2.840 .114 [id number] [facility] 08:37:05 11:36:52 Visit Julisa Hernandez [id number] ity [id number] [phone] Co dical nal [address] [facility] 2019-11-22 2019-11-22 Orders Doctor LIYA 1.2.840.114 [id number] Univers 00:00:00 00:00:00 Only Unassigned, DANIELA [id number] ity of [facility] [id number] [place] as [phone] [address] 2019-11-11 2019-11-11 Orders Doctor LIYA 1.2.840.114 [id number] Univers 00:00:00 00:00:00 Only Unassigned, DANIELA [id number] ity of [place] [id number] [place] as [phone] [address] 2019-10-30 2019-10-30 Inpatient E [facility] [id number] [facility] 03:07:00 15:15:00 Results This patient has no known results.
[2021-12-21 12:12] LABS: Absolute Lymphocytes (CBC) 1.6 K/uL (0.7-4.9); Hematocrit 32.3 % (39.6-49.0); Lymphocytes % 15.5 % (15.3-44.8); MPV 8.8 fL (7.6-11.3); RBC Red Blood Cell Count 4.09 M/uL (4.33-5.43)
[2021-12-21 12:19] LABS: BUN Blood Urea Nitrogen 11 mg/dL (7-18); Bicarbonate 31 mmol/L (21-32); Glucose Level 137 mg/dL (74-106); Potassium 3.6 mmol/L (3.5-5.1); Sodium Level 134 mmol/L (136-145)
--- NOTE | 2021-12-21 12:33 | ER ---
Nurse's Notes [facility] Name: Tej Fragoso Age: 56 yrs Sex: Male : 1965 Arrival Date: 12/21/2021 Time: : Bed 5 Private MD: Diagnosis: Lymphedema, not elsewhere classified;Anemia, unspecified;Obesity, unspecified Presentation: 12/21 11:27 Chief complaint: Patient states: LLE leaking fluid since last night. No falls or ll1 trauma. Significant lymphedema to LLE. No fever. Coronavirus screen: Vaccine status: Patient reports receiving the 2nd dose of the covid vaccine. Client denies travel out of the [place] in the last 14 days. At this time, the client does not indicate any symptoms associated with coronavirus-19. Ebola Screen: Patient denies travel to an Ebola-affected area in the 21 days before illness onset. Initial Sepsis Screen: Does the patient meet any 2 criteria? No. Patient's initial sepsis screen is negative. Does the patient have a suspected source of infection? Yes: Skin breakdown/wound. Initial Sepsis Screen:. Risk Assessment: Do you want to hurt yourself or someone else? Patient reports no desire to harm self or others. Onset of symptoms was December 20, 2021. 11:27 Method Of Arrival: EMS: [facility] 1 11:27 Acuity: DAVID 4 ll1 Triage Assessment: 11:28 General: Appears in no apparent distress. Behavior is calm, cooperative, appropriate ll1 for age. Pain: Denies pain. Derm: Wound noted left leg leaking serous fluid from LLE, significant lymphedema in that extremity. Musculoskeletal: Reports LLE leaking fluid. Historical: - Allergies: : No Known Drug Allergies; ll1 - PMHx: 11: Diabetes; Hypertension; LYMPH EDEMA; ll1 - PSHx: : R AKA; ll1 - Immunization history:: Adult Immunizations up to date. - Social history:: Smoking status: Patient denies any tobacco usage or history of. Screenin:29 Abuse screen: Denies threats or abuse. Nutritional screening: No deficits noted. ll1 Tuberculosis screening: No symptoms or risk factors identified. Fall Risk Gait- Impaired (20 pts.). Total Sanchez Fall Scale indicates High Risk Score (45 or more points). Fall prevention measures have been instituted. Side Rails Up X 2 Placed Close to Nursing Station Frequent Obs/Assessments Occuring As available patient and family educated on Fall Prevention Program and Strategies. Assessment: 11:52 Reassessment: No changes from previously documented assessment. Patient and/or family ll1 updated on plan of care and expected duration. Pain level reassessed. Patient is alert, oriented x 3, equal unlabored respirations, skin warm/dry/pink. 12:31 Reassessment: wrapped pt left leg with wyatt wrap and gauze for drainage. oconnor 13:04 Reassessment: No changes from previously documented assessment. Patient and/or family ll1 updated on plan of care and expected duration. Pain level reassessed. Patient is alert, oriented x 3, equal unlabored respirations, skin warm/dry/pink. Vital Signs: 11:27 BP 132 / 75; Pulse 89; Resp 18; Temp 97.9(O); Pulse Ox 100% on R/A; Pain 0/10; ll1 12:45 BP 112 / 69; Pulse 77; Resp 18; Pulse Ox 95% ; ll1 ED Course: 11:26 Patient arrived in ED. ll1 11:26 Ramon Damico DO is Attending Physician. ms3 11:26 Arm band placed on Patient placed in an exam room, on a stretcher. ll1 11:28 Triage completed. ll1 11:30 Patient has correct armband on for positive identification. Bed in low position. Call ll1 light in reach. Side rails up X2. Pulse ox on. NIBP on. 11:52 Alphonse Layne RN is Primary Nurse. ll1 11:52 Inserted saline lock: 22 gauge in right antecubital area, using aseptic technique. ll1 Blood collected. 12:31 Zhou Drake MD is Referral Physician. ms3 12:45 IV discontinued, intact, bleeding controlled, No redness/swelling at site. Pressure ll1 dressing applied. 12:45 No provider procedures requiring assistance completed. ll1 Administered Medications: No medications were administered Outcome: 12:32 Discharge ordered by . ms3 13:05 Discharged to home via ambulance. ll1 13:05 Condition: stable 13:05 Discharge instructions given to patient, Instructed on discharge instructions, follow up and referral plans. Demonstrated understanding of instructions, follow-up care. 13:05 Patient left the ED. ll1 Signatures: Alphonse Layne RN RN ll1 Ramon Damico DO DO ms3 Renee Rowe RN RN oconnor
--- NOTE | 2021-12-21 12:33 | EDPHYS ---
Physician Documentation [facility] Name: Tej Fragoso Age: 56 yrs Sex: Male : 1965 Arrival Date: 12/21/2021 Time: 11: Bed 5 Private MD: ED Physician Ramon Damico HPI: 12/21 11:27 This 56 yrs old Male presents to ER via EMS with complaints of Leg Swelling. ms3 11:27 56-year-old male with past medical history of diabetes and lymphedema presents for ms3 drainage from left leg that began at midnight. Patient states he is having moderate pain in his left leg. Patient denies chills, fever. Patient endorses nausea. Patient denies alleviating or inciting factors.. Onset: The symptoms/episode began/occurred acutely. Severity of symptoms: in the emergency department the symptoms are unchanged. Unable to obtain HPI due to a language barrier being present. iPad language line. Historical: - Allergies: 11: No Known Drug Allergies; ll1 - PMHx: 11: Diabetes; Hypertension; LYMPH EDEMA; ll1 - PSHx: : R AKA; ll1 - Immunization history:: Adult Immunizations up to date. - Social history:: Smoking status: Patient denies any tobacco usage or history of. ROS: 12:27 Constitutional: Negative for fever, and chills. Eyes: Negative for injury, pain, ms3 redness, and discharge, ENT: Negative for injury, pain, and discharge, Cardiovascular: Negative for chest pain, and palpitations. Respiratory: Negative for shortness of breath, cough, wheezing, and pleuritic chest pain, Back: Negative for injury and pain, MS/Extremity: Negative for injury and deformity, Skin: Negative for injury, rash, and discoloration, Neuro: Negative for headache, weakness, numbness, tingling. 12:27 Abdomen/GI: Positive for nausea. 12:27 Skin: Positive for Weeping from left leg. 12:27 All other systems are negative. ms3 Exam: 12:27 Constitutional: This is a well developed, well nourished patient who is awake, alert, ms3 and in no acute distress. Neck: Trachea midline, no cervical lymphadenopathy. Supple, full range of motion without nuchal rigidity, or vertebral point tenderness. No Meningismus. Chest/axilla: Normal chest wall appearance and motion. Nontender with no deformity. Cardiovascular: Regular rate and rhythm with a normal S1 and S2. No gallops, murmurs, or rubs. Normal PMI, no JVD. No pulse deficits. Respiratory: Lungs have equal breath sounds bilaterally, clear to auscultation and percussion. No rales, rhonchi or wheezes noted. No increased work of breathing, no retractions or nasal flaring. 12:27 Abdomen/GI: Bowel sounds: normal, Palpation: abdomen is soft and non-tender, Obese. 12:27 Musculoskeletal/extremity: Extremities: noted in the lateral aspect of left calf, left calf and medial aspect of left calf: swelling, Drainage from posterior leg, Right leg amputation. 12:27 Skin: Lymphedema of left leg. Vital Signs: 11:27 BP 132 / 75; Pulse 89; Resp 18; Temp 97.9(O); Pulse Ox 100% on R/A; Pain 0/10; ll1 12:45 BP 112 / 69; Pulse 77; Resp 18; Pulse Ox 95% ; ll1 MDM: 11:26 Patient medically screened. ms3 12:29 Differential Diagnosis Lymphedema versus cellulitis versus varicocele vein. Data ms3 reviewed: vital signs, nurses notes, lab test result(s), CBC, electrolytes. Counseling: I had a detailed discussion with the patient and/or guardian regarding: the historical points, exam findings, and any diagnostic results supporting the discharge/admit diagnosis, lab results, the need for outpatient follow up. ED course: Discussed CBC, BMP with patient. Patient to follow-up with Dr. Drake in 48 hours. Patient understands and agrees with plan. All questions were answered. Return precautions discussed include worsening symptoms, or any other concerns. On reevaluation patient's leg without drainage, no fluctuance in posterior leg, patient without fever, no apparent distress, nontoxic appearing.. 12/21 11:41 Order name: CBC with Diff; Complete Time: 12:20 ms3 12/21 12:24 Interpretation: anemia. ms3 12/21 11:41 Order name: BMP; Complete Time: 12:20 ms3 Administered Medications: No medications were administered Disposition Summary: 12/21/21 12:32 Discharge Ordered Location: Home ms3 Condition: Stable ms3 Diagnosis - Lymphedema, not elsewhere classified ms3 - Anemia, unspecified ms3 - Obesity, unspecified ms3 Followup: ms3 - With: Zhou Drake MD - When: 48 Hours - Reason: Wound Recheck, Re-evaluation by your physician Discharge Instructions: - Discharge Summary Sheet ms3 - Anemia ms3 - Lymphedema ms3 Forms: - Medication Reconciliation Form ms3 - Thank You Letter ms3 - Antibiotic Education ms3 - Prescription Opioid Use ms3 Signatures: Dispatcher [employer] Alphonse Mack, RN RN ll1 Ramon Damico DO DO ms3
[2021-12-21 13:28] VITALS: TEMP 97.9
[2021-12-21 13:29] VITALS: BP 112/69; O2SAT 95
== END 2021-12-21 13:05 | disposition home or self-care (01) ==
LOC: ER 11:23
DX: I89.0 Lymphedema, not elsewhere classified (principal); D64.9 Anemia, unspecified; E66.9 Obesity, unspecified; E11.9 Type 2 diabetes mellitus without complications; I10 Essential (primary) hypertension; Z89.611 Acquired absence of right leg above knee
CPT/HCPCS: 36415; 80048; 85025; 99284

== ENCOUNTER 2022-01-01 10:45 | Inpatient (IN) | payer OTHER ==
--- OUTSIDE RECORDS SUMMARY | 2022-01-01 10:48 | XMS REPORT | Continuity of Care Document ---
:1965 Author Organization Formerly [facility] t Address [address] [place] [address] Care Team Providers Name Role Phone Natalio SMITH, Paddy Primary Care Physician Paddy Chapin MD Attending Clinician PADDY CHAPIN Attending Clinician Unavailable ANEANAYA Attending Clinician Unavailable Manuel HERNANDEZ Attending Clinician Unavailable Alexi QUALITY ASSURANCE MONITOR, Aquiles Attending Clinician Unavailable Manuel Hernandez MD Attending Clinician Anna PTAmada Attending Clinician Unavailable Doctor Unassigned, Name Attending Clinician Unavailable Payers Payer Name Policy Type Policy Number Effective Date Expiration Date S anmol MEDICARE PART A [id number] 2017 \T\ B 00:00:00 Problems Condition Condition Condition Status Onset Resolution Last Treating Co mments Source Name Details Category Date Date Treatment Clinician Date Chronic Chronic Disease Active 2019-10 Univers edema edema 1-12 ity of 00:00: [address] 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 Uni vers (above (above 1-12 ity of knee knee 00:00: [place] amputation amputation 00 Me dical ), right ), right Branch Allergies, Adverse Reactions, Alerts Allergy Allergy Status Severity Reaction(s) Onset Inactive Treating Comm ents Source Name Type Date Date Clinician NO KNOWN Drug Active Univers ALLERGIE Class ity of S [facility] Social History Social Habit Start Date Stop Date Quantity Comments Source Alcohol intake 2020-06-25 2020-06-25 Ex-drinker University of 00:00:00 00:00:00 (finding) [facility] Tobacco use and 2019-11-25 2019-11-25 Never used Universit y of exposure 00:00:00 00:00:00 [facility] [birth year] Universit y of 00:00:00 00:00:00 [facility] Smoking Status Start Date Stop Date Source Unknown if ever smoked Universit y [facility] Never smoker [facility] Medications Ordered Filled Start Stop Current Ordering Indication Dosage Frequency Signature Comments Components Source Medication Medication Date Date Medication? Clinician (SIG) Name Name GLIPIZIDE 2020-10 Yes [id number] TAKE ONE Univers 10 mg 0-26 TABLET BY ity of tablet 00:00: [facility] DAILY Medical Branch GLIPIZIDE 2020-10 Yes [id number] TAKE ONE Univers 10 mg 0-26 TABLET BY ity of tablet 00:00: [facility] DAILY Medical Branch GLIPIZIDE 2020-10 Yes [id number] TAKE ONE Univers 10 mg 0-26 TABLET BY ity of tablet 00:00: [facility] DAILY Medical Branch GLIPIZIDE 2020-10 Yes [id number] TAKE ONE Univers 10 mg 0-19 TABLET BY ity of tablet 00:00: [facility] DAILY Medical Branch GLIPIZIDE 2020-10- No [id number] TAKE ONE Univers 10 mg 0-19 10-26 TABLET BY ity of tablet 00:00: 00:00 [facility] 00 :00 DAILY Medical Branch PIOGLITAZON Yes TAKE ONE Un senthil E 30 mg 9-20 TABLET BY ity of tablet 00:00: [facility] DAILY Medical Branch TRIAMTERENE Yes [id number] TAKE ONE Univers -HYDROCHLOR 9-20 CAPSULE BY it y of OTHIAZIDE 00:00: [facility] 37.5-25 mg 00 EVERY Medical per capsule MORNING Branc h BUMETANIDE Yes [id number] TAKE ONE Univers 1 mg tablet 9-20 TABLET BY ity of 00:00: [facility] DAILY Medical Branch PIOGLITAZON Yes TAKE ONE Un senthil E 30 mg 9-20 TABLET BY ity of tablet 00:00: [facility] DAILY Medical Branch TRIAMTERENE Yes [id number] TAKE ONE Univers -HYDROCHLOR 9-20 CAPSULE BY it y of OTHIAZIDE 00:00: [facility] 37.5-25 mg 00 EVERY Medical per capsule MORNING Branc h BUMETANIDE Yes [id number] TAKE ONE Univers 1 mg tablet 9-20 TABLET BY ity of 00:00: MOUTH [place] 00 DAILY Medical Branch PIOGLITAZON Yes TAKE ONE Un senthil E 30 mg 9-20 TABLET BY ity of tablet 00:00: MOUTH [place] 00 DAILY Medical Branch TRIAMTERENE Yes [id number] TAKE ONE Univers -HYDROCHLOR 9-20 CAPSULE BY it y of OTHIAZIDE 00:00: MOUTH [place] 37.5-25 mg 00 EVERY Medical per capsule MORNING Bran h BUMETANIDE Yes [id number] TAKE ONE Univers 1 mg tablet 9-20 TABLET BY ity of 00:00: MOUTH 00 DAILY Medical Branch PIOGLITAZON Yes TAKE ONE Un senthil E 30 mg 9-20 TABLET BY ity of tablet 00:00: MOUTH DAILY Medical Branch TRIAMTERENE Yes [id number] TAKE ONE Univers -HYDROCHLOR 9-20 CAPSULE BY it y of OTHIAZIDE 00:00: MOUTH [place] 37.5-25 mg 00 EVERY Medical per capsule MORNING Bran h BUMETANIDE Yes [id number] TAKE ONE Univers 1 mg tablet 9-20 TABLET BY ity of 00:00: MOUTH DAILY Medical Branch PIOGLITAZON Yes TAKE ONE Un senthil E 30 mg 9-20 TABLET BY ity of tablet 00:00: MOUTH 00 DAILY Medical Branch TRIAMTERENE Yes [id number] TAKE ONE Univers -HYDROCHLOR 9-20 CAPSULE BY it y of OTHIAZIDE 00:00: MOUTH [place] 37.5-25 mg 00 EVERY Medical per capsule MORNING Bran h BUMETANIDE Yes [id number] TAKE ONE Univers 1 mg tablet 9-20 TABLET BY ity of 00:00: MOUTH DAILY Medical Branch metFORMIN 2020-0 Yes [id number] TAKE ONE Univers 500 mg 8-31 TABLET BY ity of tablet 00:00: MOUTH [place] 00 TWICE A Medical DAY WITH Branch MEALS metFORMIN 2020-0 Yes [id number] TAKE ONE Univers 500 mg 8-31 TABLET BY ity of tablet 00:00: MOUTH 00 TWICE A Medical DAY WITH Branch MEALS metFORMIN 2020-0 Yes [id number] TAKE ONE Univers 500 mg 8-31 TABLET BY ity of tablet 00:00: MOUTH [place] TWICE A Medical DAY WITH Branch MEALS metFORMIN 2020-0 Yes [id number] TAKE ONE Univers 500 mg 8-31 TABLET BY ity of tablet 00:00: MOUTH [place] TWICE A Medical DAY WITH Branch MEALS metFORMIN 2020-0 Yes [id number] TAKE ONE Univers 500 mg 8-31 TABLET BY ity of tablet 00:00: MOUTH [place] TWICE A Medical DAY WITH Branch MEALS metFORMIN 2020-0 Yes [id number] TAKE ONE Univers 500 mg 8-31 TABLET BY ity of tablet 00:00: MOUTH [place] TWICE A Medical DAY WITH Branch MEALS ATORVASTATI 2020-0 Yes TAKE ONE Un senthil N 40 mg 8-19 TABLET BY ity of tablet 00:00: MOUTH AT [place] BEDTIME Medical Branch ATORVASTATI 2020-0 Yes TAKE ONE Un senthil N 40 mg 8-19 TABLET BY ity of tablet 00:00: MOUTH AT [place] BEDTIME Medical Branch ATORVASTATI 2020-0 Yes TAKE ONE Un senthil N 40 mg 8-19 TABLET BY ity of tablet 00:00: MOUTH AT [place] BEDTIME Medical Branch ATORVASTATI 2020-0 Yes TAKE ONE Un senthil N 40 mg 8-19 TABLET BY ity of tablet 00:00: MOUTH AT [place] BEDTIME Medical Branch ATORVASTATI 2020-0 Yes TAKE ONE Un senthil N 40 mg 8-19 TABLET BY ity of tablet 00:00: MOUTH AT [place] BEDTIME Medical Branch ATORVASTATI 2020-0 Yes TAKE ONE Un senthil N 40 mg 8-19 TABLET BY ity of tablet 00:00: MOUTH AT [place] BEDTIME Medical Branch GLIPIZIDE 2020-0 Yes [id number] TAKE ONE Univers 10 mg 8-16 TABLET BY ity of tablet 00:00: MOUTH [place] DAILY Medical Branch GLIPIZIDE 2020-0 Yes [id number] TAKE ONE Univers 10 mg 8-16 TABLET BY ity of tablet 00:00: MOUTH [place] 00 DAILY Medical Branch GLIPIZIDE 2020-0 2021- No [id number] TAKE ONE Univers 10 mg 8-16 10-19 TABLET BY ity of tablet 00:00: 00:00 MOUTH [place] 00 :00 DAILY Medical Branch BUMETANIDE 2020-0 Yes [id number] TAKE ONE Univers 1 mg tablet 7-27 TABLET BY ity of 00:00: MOUTH DAILY Medical Branch TRIAMTERENE 0 Yes [id number] TAKE ONE Univers -HYDROCHLOR 7-27 CAPSULE BY it y of OTHIAZIDE 00:00: MOUTH [place] 37.5-25 mg 00 EVERY Medical per capsule MORNING Branc h BUMETANIDE 2020-0 2020- No [id number] TAKE ONE Univers 1 mg tablet 7- 09-20 TABLET BY it y of 00:00: 00:00 MOUTH [place] 00 :00 DAILY Medical Branch TRIAMTERENE 2020-0 2020- No [id number] TAKE ONE Univers -HYDROCHLOR 7-27 -20 CAPSULE BY i ty of OTHIAZIDE 00:00: 00:00 MOUTH [place] 37.5-25 mg 00 :00 EVERY Medical per capsule MORNING Branc h KCL 10 mEq 2020-0 Yes [id number] TAKE ONE Univers tablet 7-21 TABLET BY ity of 00:00: MOUTH DAILY Medical Branch KCL 10 mEq 2020-0 Yes [id number] TAKE ONE Univers tablet 7-21 TABLET BY ity of 00:00: MOUTH [place] DAILY Medical Branch KCL 10 mEq 2020-0 Yes [id number] TAKE ONE Univers tablet 7-21 TABLET BY ity of 00:00: MOUTH DAILY Medical Branch KCL 10 mEq 2020-0 Yes [id number] TAKE ONE Univers tablet 7-21 TABLET BY ity of 00:00: MOUTH [place] DAILY Medical Branch KCL 10 mEq 2020-0 Yes [id number] TAKE ONE Univers tablet 7-21 TABLET BY ity of 00:00: [facility] DAILY Medical Branch KCL 10 mEq 2020-0 Yes [id number] TAKE ONE Univers tablet 7-21 TABLET BY ity of 00:00: MOUTH [place] DAILY Medical Branch metFORMIN 2020-0 2020- No [id number] TAKE ONE Univers 500 mg 6-21 08-31 TABLET BY ity of tablet 00:00: 00:00 MOUTH [place] 00 :00 TWICE A Medical DAY WITH Branch MEALS PIOGLITAZON 2020-0 Yes TAKE ONE Un senthil E 30 mg 6-16 TABLET BY ity of tablet 00:00: MOUTH [place] DAILY Medical Branch PIOGLITAZON 2020-0 2021- No TAKE ONE U nivers E 30 mg 6-16 09-20 TABLET BY ity of tablet 00:00: 00:00 MOUTH [place] 00 :00 DAILY Medical Branch exenatide 2020-0 Yes [id number] 2mg inject Un senthil microsphere 4-21 0.65 mL ity o f s 00:00: under the [place] (BYDUREON) 00 skin Medical 2 mg/0.65 weekly. Branch mL injection exenatide 2020-0 Yes [id number] 2mg inject Un senthil microsphere 4-21 0.65 mL ity o f s 00:00: under the [place] (BYDUREON) 00 skin Medical 2 mg/0.65 weekly. Branch mL injection exenatide 2020-0 Yes [id number] 2mg inject Un senthil microsphere 4-21 0.65 mL ity o f s 00:00: under the [place] (BYDUREON) 00 skin Medical 2 mg/0.65 weekly. Branch mL injection exenatide 2020-0 Yes [id number] 2mg inject Un senthil microsphere 4-21 0.65 mL ity o f s 00:00: under the [place] (BYDUREON) 00 skin Medical 2 mg/0.65 weekly. Branch mL injection exenatide 2020-0 Yes [id number] 2mg inject Un senthil microsphere 4-21 0.65 mL ity o f s 00:00: under the [place] (BYDUREON) 00 skin Medical 2 mg/0.65 weekly. Branch mL injection exenatide 2020-0 Yes [id number] 2mg inject Un senthil microsphere 4-21 0.65 mL ity o f s 00:00: under the [place] (BYDUREON) 00 skin Medical 2 mg/0.65 weekly. Branch mL injection traMADoL 50 2020-0 Yes [id number] 50mg Take 1 Univ ers mg tablet 3-19 tablet by ity o f 00:00: mouth [place] 00 every 6 Medical (six) Branch hours as needed for Pain (scale 4-6). Indication s: acute pain exenatide 2020-0 Yes [id number] 2mg inject 2 Univers microsphere 3-19 mg [...] Indication s: acute pain exenatide 2020-0 Yes [id number] 2mg inject 2 Univers microsphere 3-19 mg [...] Indication s: acute pain exenatide 2020-0 Yes [id number] 2mg inject 2 Univers microsphere 3-19 mg [...] Indication s: acute pain exenatide 2020-0 Yes [id number] 2mg inject 2 Univers microsphere 3-19 mg [...] Indication s: acute pain exenatide 2020-0 Yes [id number] 2mg inject 2 Univers microsphere 3-19 mg [...] Indication s: acute pain exenatide 2020-0 Yes [id number] 2mg inject 2 Univers microsphere 3-19 mg under ity of s 2 mg 00:00: the skin [place] injection 00 every 7 Medical (seven) Branch days. traMADol 50 2020-0 Yes [id number] 50mg Take 1 Univers mg tablet 2-26 [id number] tablet by ity of 00:00: mouth [place] 00 every 6 Medical (six) Branch hours as needed (pain). exenatide 2020-0 Yes [id number] 2mg inject 2 Univers microsphere 2-26 mg under ity of s 2 mg 00:00: the skin [place] injection 00 every 7 Medical (seven) Branch days. metFORMIN 2020-0 Yes 500mg Take 500 Uni vers 500 mg 1-31 mg by ity of tablet 20:46: mouth 2 [place] [address] (two) Medical times [place] daily with meals. atorvastati 2020-0 Yes 40mg Take 40 mg Univers n 40 mg 1-31 by mouth ity of tablet 20:46: at [place] [address] bedtime. Medical Branch pioglitazon 2020-0 Yes 30mg Take 30 mg Univers e 30 mg 1-31 by mouth ity of tablet 20:46: daily. [address] glipiZIDE 2020-0 Yes 10mg Take 10 mg Un senthil 10 mg 1-31 by mouth ity of tablet 20:46: daily. [address] metFORMIN 2020-0 Yes 500mg Take 500 Uni vers 500 mg 1-31 mg by ity of tablet 20:46: mouth 2 [place] [address] ([facility]) Medical times [place] daily with meals. atorvastati 2020-0 Yes 40mg Take 40 mg Univers n 40 mg 1-31 by mouth ity of tablet 20:46: at [place] [address] bedtime. Medical Branch pioglitazon 2020-0 Yes 30mg Take 30 mg Univers e 30 mg 1-31 by mouth ity of tablet 20:46: daily. [address] glipiZIDE 2020-0 Yes 10mg Take 10 mg Un senthil 10 mg 1-31 by mouth ity of tablet 20:46: daily. [address] metFORMIN 2020-0 Yes 500mg Take 500 Uni vers 500 mg 1-31 mg by ity of tablet 20:46: mouth 2 [place] [address] ([facility]) Medical times [place] daily with meals. atorvastati 2020-0 Yes 40mg Take 40 mg Univers n 40 mg 1-31 by mouth ity of tablet 20:46: at [place] [address] bedtime. Medical Branch pioglitazon 2020-0 Yes 30mg Take 30 mg Univers e 30 mg 1-31 by mouth ity of tablet 20:46: daily. [address] glipiZIDE 2020-0 Yes 10mg Take 10 mg Un senthil 10 mg 1-31 by mouth ity of tablet 20:46: daily. [address] metFORMIN 2020-0 Yes 500mg Take 500 Uni vers 500 mg 1-31 mg by ity of tablet 20:46: mouth 2 [place] [address] ([facility]) [facility] times [place] daily with meals. atorvastati 2020-0 Yes 40mg Take 40 mg Univers n 40 mg 1-31 by mouth ity of tablet 20:46: at [place] [address] bedtime. Medical Branch pioglitazon 2020-0 Yes 30mg Take 30 mg Univers e 30 mg 1-31 by mouth ity of tablet 20:46: daily. [address] glipiZIDE 2020-0 Yes 10mg Take 10 mg Un senthil 10 mg 1-31 by mouth ity of tablet 20:46: daily. [address] metFORMIN 2020-0 Yes 500mg Take 500 Uni vers 500 mg 1-31 mg by ity of tablet 20:46: mouth 2 [place] [address] ([facility]) [facility] daily with meals. atorvastati 2020-0 Yes 40mg Take 40 mg Univers n 40 mg 1-31 by mouth ity of tablet 20:46: at [place] [address] bedtime. Medical Branch pioglitazon 2020-0 Yes 30mg Take 30 mg Univers e 30 mg 1-31 by mouth ity of tablet 20:46: daily. [address] glipiZIDE 2020-0 Yes 10mg Take 10 mg Un senthil 10 mg 1-31 by mouth ity of tablet 20:46: daily. [address] metFORMIN 2020-0 Yes 500mg Take 500 Uni vers 500 mg 1-31 mg by ity of tablet 20:46: mouth 2 [place] [address] ([facility]) [facility] times [place] daily with meals. atorvastati 2020-0 Yes 40mg Take 40 mg Univers n 40 mg 1-31 by mouth ity of tablet 20:46: at [place] [address] bedtime. Medical Branch pioglitazon 2020-0 Yes 30mg Take 30 mg Univers e 30 mg 1-31 by mouth ity of tablet 20:46: daily. [address] glipiZIDE 2020-0 Yes 10mg Take 10 mg Un senthil 10 mg 1-31 by mouth ity of tablet 20:46: daily. [address] metFORMIN 2020-0 Yes 500mg Take 500 Uni vers 500 mg 1-31 mg by ity of tablet 20:46: mouth 2 [place] [address] (two) Medical times Branch daily with meals. atorvastati 2020-0 Yes 40mg Take 40 mg Univers n 40 mg 1-31 by mouth ity of tablet 20:46: at [place] [address] bedtime. Medical Branch pioglitazon 2020-0 Yes 30mg Take 30 mg Univers e 30 mg 1-31 by mouth ity of tablet 20:46: daily. [place] [address] Medical Branch glipiZIDE 2020-0 Yes 10mg Take 10 mg Un senthil 10 mg 1-31 by mouth ity of tablet 20:46: daily. [place] [address] Medical Branch amoxicillin 2020-0 Yes [id number] 1{tbl} Take 1 Univers -clavulanat 1-31 [id number] tablet by i ty of e 00:00: mouth 2 [place] (AUGMENTIN) 00 (two) Medical 875-125 mg times Branch per tablet daily. sulfamethox 2020-0 Yes [id number] 1{tbl} Take 1 Univers azole-trime 1- [id number] tablet by i ty of thoprim 00:00: mouth 2 [place] 800-160 mg 00 (two) Medical per tablet times Branch daily. traMADol 50 2020-0 Yes [id number] 50mg Take 1 Univers mg tablet - [id number] tablet by ity of 00:00: mouth [place] 00 every 6 Medical (six) Branch hours as needed (pain). amoxicillin 2020-0 Yes [id number] 1{tbl} Take 1 Univers -clavulanat 1-31 [id number] tablet by i ty of e 00:00: mouth 2 [place] (AUGMENTIN) 00 (two) Medical 875-125 mg times Branch per tablet daily. sulfamethox 2020-0 Yes [id number] 1{tbl} Take 1 Univers azole-trime 1-31 [id number] tablet by i ty of thoprim 00:00: mouth 2 [place] 800-160 mg 00 (two) Medical per tablet times Branch daily. traMADol 50 2020-0 Yes [id number] 50mg Take 1 Univers mg tablet 1-31 [id number] tablet by ity of 00:00: mouth [place] 00 every 6 Medical (six) Branch hours as needed (pain). amoxicillin 2020-0 Yes [id number] 1{tbl} Take 1 Univers -clavulanat 1-31 [id number] tablet by i ty of e 00:00: mouth 2 [place] (AUGMENTIN) 00 (two) Medical 875-125 mg times Branch per tablet daily. sulfamethox 2020-0 Yes [id number] 1{tbl} Take 1 Univers azole-trime 1-31 [id number] tablet by i ty of thoprim 00:00: mouth 2 [place] 800-160 mg 00 (two) Medical per tablet times Branch daily. traMADol 50 2020-0 Yes [id number] 50mg Take 1 Univers mg tablet 1-31 [id number] tablet by ity of 00:00: mouth [place] 00 every 6 Medical (six) Branch hours as needed (pain). amoxicillin 2020-0 Yes [id number] 1{tbl} Take 1 Univers -clavulanat 1-31 [id number] tablet by i ty of e 00:00: mouth 2 [place] (AUGMENTIN) 00 (two) Medical 875-125 mg times Branch per tablet daily. sulfamethox 2020-0 Yes [id number] 1{tbl} Take 1 Univers azole-trime 1-31 [id number] tablet by i ty of thoprim 00:00: mouth 2 [place] 800-160 mg 00 (two) Medical per tablet times Branch daily. traMADol 50 2020-0 Yes [id number] 50mg Take 1 Univers mg tablet 1- [id number] tablet by ity of 00:00: mouth [place] 00 every 6 Medical (six) Branch hours as needed (pain). amoxicillin 2020-0 Yes [id number] 1{tbl} Take 1 Univers -clavulanat 1-31 [id number] tablet by i ty of e 00:00: mouth 2 [place] (AUGMENTIN) 00 (two) Medical 875-125 mg times Branch per tablet daily. sulfamethox 2020-0 Yes [id number] 1{tbl} Take 1 Univers azole-trime 1-31 [id number] tablet by i ty of thoprim 00:00: mouth 2 [place] 800-160 mg 00 (two) Medical per tablet times Branch daily. traMADol 50 2020-0 Yes [id number] 50mg Take 1 Univers mg tablet 1-31 [id number] tablet by ity of 00:00: mouth [place] 00 every 6 Medical (six) Branch hours as needed (pain). amoxicillin 2020-0 Yes [id number] 1{tbl} Take 1 Univers -clavulanat 1-31 [id number] tablet by i ty of e 00:00: mouth 2 [place] (AUGMENTIN) 00 (two) Medical 875-125 mg times Branch per tablet daily. sulfamethox 2020-0 Yes [id number] 1{tbl} Take 1 Univers azole-trime 11-25 [id number] tablet by i ty of thoprim 00:00: mouth 2 [place] 800-160 mg 00 (two) Medical per tablet times Branch daily. traMADol 50 2019-0 Yes [id number] 50mg Take 1 Univers mg tablet 11-25 [id number] tablet by ity of 00:00: mouth [place] 00 every 6 Medical (six) Branch hours as needed (pain). amoxicillin 2020- No [id number] 1{tbl} Take 1 Univers -clavulanat 11-25 [id number] tablet by ity of e 00:00: 00:00 mouth 2 [place] (AUGMENTIN) 00 :00 (two) Medical 875-125 mg times Branch per tablet daily. sulfamethox 2019- 2020- No [id number] 1{tbl} Take 1 Univers azole-trime 11-25 [id number] tablet by ity of thoprim 00:00: 00:00 mouth 2 [place] 800-160 mg 00 :00 (two) Medical per tablet times Branch daily. traMADol 50 2019-0 2020- No [id number] 50mg Take 1 Univers mg tablet 11-25 [id number] tablet by it y of 00:00: 00:00 mouth [place] 00 :00 every 6 Medical (six) Branch hours as needed (pain). No known No Univers medications [facility] Vital Signs Vital Name Observation Time Observation Value Comments Source Systolic blood 2019-12-21 17:49:00 110 mm[Hg] [facility]iver [facility] Diastolic blood 2019-12-21 17:49:00 41 mm[Hg] [facility] Heart rate 2019-12-21 17:49:00 79 /[facility] Body temperature 2019-12-21 17:49:00 36.78 Yesenia [facility] Respiratory rate 2019-12-21 17:49:00 18 /min [facility] Procedures Procedure Date / Time Performing Clinician Source Performed PATIENT QUESTIONNAIRE 2019-11-22 06:01:00 Doctor Unassigned, No [facility] Name Medical Branch REFERRAL- 2019-11-11 06:01:00 Doctor Unassigned, No [facility] REQUEST/RESPONSE Name Medical [place] Encounters Start End Encounter Admission Attending Care Care Encounter Source Date/Time Date/Time Type Type Clinicians Facility Department ID 2021-08-23 Emergency [facility] [id number] Univers 14:59:58 ity of [facility] 2019-11-28 Outpatient [facility] [id number] 08:29:26 2021-11-29 2021-11-29 [facility] [id number] Univers 00:00:00 00:00:00 Logan GUNN [id number] i ty of [facility] [id number] PROF[place] [phone] [address] 2021-09-12 2021-09-12 [facility] [id number] Univers 00:00:00 00:00:00 [place] GUNN [id number] i ty of [facility] [id number] [phone] [address] 2021-08-19 2021-08-19 [facility] 1.2.840.114 [id number] Univers 00:00:00 00:00:00 Logan Gunn [id number] i ty of [id number] [place] [phone] [address] 2021-08-13 2021-08-13 [facility] [id number] Univers 00:00:00 00:00:00 Logan Gunn [id number] i ty of [place] [id number] [place] [phone] [address] 2021-07-13 2021-07-13 [facility] 1.2.840.114 [id number] Univers 00:00:00 00:00:00 Logan Deshler [id number] i ty of Paddy Ogles[place] [id number] [place] [phone] [place] jodi michael [address] [place] [address] 2021-06-24 2021-06-24 [facility] 1.2.840.114 [id number] Univers 00:00:00 00:00:00 [facility] [id number] it y of Paddy Gunn [id number] Geo as Jak?Blea [phone] Ca jodi yadav [address] [place] [address] [facility] 2020-09-05 2020-09-05 Outpatient Arleth CHAPIN [facility] [id number] Univers 14:00:00 14:00:00 LOGAN [id number] [facility] 2020-09-05 2020-09-05 [facility] [id number] Univers 10:15:00 10:15:00 LOGAN [facility] 2020-06-25 2020-06-25 Outpatient [facility] [id number] Univers 11:40:00 11:40:00 [id number] [facility] 2020-06-25 2020-06-25 Outpatient Arleth ALANIZ [facility] [id number] Univers 11:40:00 11:40:00 KATE [facility] 2020-06-06 2020-06-06 Outpatient Arleth CHAPIN [facility] [id number] Univers 15:45:00 15:45:00 LOGAN [facility] 2020-06-06 2020-06-06 Outpatient Arleth CHAPIN [facility] [id number] Univers 13:45:00 13:45:00 LOGAN [id number] [facility] 2020-05-09 2020-05-09 Outpatient Arleth CHAPIN [facility] [id number] Univers 16:15:00 16:15:00 LOGAN [id number] [facility] 2020-05-09 2020-05-09 Outpatient Arleth CHAPIN [facility] [id number] Univers 16:15:00 16:15:00 LOGAN [facility] 2020-03-20 2020-03-20 Outpatient R NATALIO [facility] [id number] Univers 09:15:00 09:15:00 LOGAN [id number] ity of [facility] 2020-03-20 2020-03-20 Outpatient R NATALIO [facility] [id number] Univers 09:15:00 09:15:00 LOGAN ity of [facility] 2020-02-29 2020-02-29 Outpatient [facility] [id number] Univers 11:20:00 11:20:00 ity of [facility] 2020-02-27 2020-02-27 Outpatient R [facility] [id number] Univers 11:20:00 11:20:00 ity of [facility] 2020-02-22 2020-02-22 Outpatient [facility] [id number] Univers 11:00:00 11:00:00 [id number] ity of [facility] 2020-02-20 2020-02-20 [id number] Univers 10:40:00 10:40:00 [id number] ity of [facility] 2020-02-15 2020-02-15 Outpatient [facility] [id number] Univers 11:20:00 11:20:00 [id number] ity of [place] [facility] 2020-02-13 2020-02-13 [facility] [id number] Univers 11:00:00 11:00:00 [id number] ity of [facility] 2020-02-08 2020-02-08 [id number] Univers 11:00:00 11:00:00 [id number] ity of [facility] 2020-02-06 2020-02-06 [facility] [id number] Univers 11:00:00 11:00:00 [id number] ity of [facility] 2020-02-01 2020-02-01 Outpatient [facility] [id number] Univers 11:00:00 11:00:00 [id number] ity of [facility] 2020-01-30 2020-01-30 [facility] [id number] Univers 11:00:00 11:00:00 ity of [facility] 2020-01-25 2020-01-25 Outpatient [facility] [id number] Univers 11:00:00 11:00:00 ity of [facility] 2020-01-25 2020-01-25 Outpatient R [facility] [id number] Univers 11:00:00 11:00:00 JULISA ity of [facility] 2020-01-23 2020-01-23 Outpatient R [facility] [id number] Univers 10:00:00 10:00:00 [id number] ity of [facility] 2020-01-19 2020-01-19 [facility] [id number] Univers 10:00:00 10:00:00 [id number] ity of [facility] 2020-01-18 2020-01-18 Outpatient R [facility] [id number] Univers 11:00:00 11:00:00 [id number] ity of [facility] 2020-01-17 2020-01-17 Outpatient R [facility] [id number] Univers 11:00:00 11:00:00 [id number] ity of [facility] 2020-01-16 2020-01-16 Outpatient R [facility] [id number] Univers 14:00:00 14:00:00 [id number] ity of [facility] 2020-01-12 2020-01-12 Outpatient [facility] [id number] Univers 15:00:00 15:00:00 [id number] ity of [facility] 2020-01-10 2020-01-10 Outpatient R [facility] [id number] Univers 15:40:00 15:40:00 [id number] ity of [facility] 2020-01-06 2020-01-06 Outpatient R [facility] [id number] Univers 13:40:00 13:40:00 [id number] ity of [facility] 2020-01-03 2020-01-03 Outpatient [facility] [id number] Univers 14:40:00 14:40:00 ity of [facility] 2019-12-29 2019-12-29 Outpatient [facility] [id number] Univers 09:20:00 09:20:00 [id number] ity of [facility] 2019-12-29 2019-12-29 Outpatient R [facility] [id number] Univers 09:20:00 09:20:00 JULISA ity of [facility] 2019-12-27 2019-12-27 Outpatient [facility] [id number] Univers 09:00:00 09:00:00 [id number] ity of [facility] 2019-12-21 2019-12-21 Office Natalio [facility] 1.2.840.114 [id number] Univers 11:42:25 11:57:[address] [facility] [id number] it y of [place] [id number] [place] Professio [phone] Ca dical [facility] [address] [facility] 2019-12-21 2019-12-21 Outpatient R NATALIO [facility] [id number] Univers 11:30:00 11:30:00 LOGAN [id number] ity of [facility] 2019-12-21 2019-12-21 Outpatient R NATALIO [facility] [id number] Univers 11:30:00 11:30:00 LOGAN y [facility] 2019-12-20 2019-12-20 Outpatient R [facility] [id number] Univers 09:00:00 09:00:00 ity of [facility] 2019-12-16 2019-12-16 Ancillary Veronica Truong [facility] 1.2.840 .114 [id number] Univers 10:07:00 11:07:00 Visit Julisa Hernandez [id number] [id number] [phone] Ca dical nal [address] [facility] 2019-12-14 2019-12-14 Ancillary Veronica Truong [facility] 1.2.840 .114 [id number] Univers 09:52:14 10:52:14 Visit Julisa Hernandez [id number] [id number] [phone] Ca dical nal [address] [facility] 2019-12-09 2019-12-09 Ancillary Veronica Truong [facility] 1.2.840 .114 [id number] Univers 08:52:58 10:16:26 Visit Julisa Hernandez [id number] [id number] [phone] Ca dical nal [address] [facility] 2019-12-07 2019-12-07 Ancillary Veronica Truong [facility] 1.2.840 .114 [id number] [facility] 08:58:57 09:58:57 Visit Hernandez Julisa Gunn [id number] [id number] [phone] Ca dical nal [address] [facility] 2019-12-02 2019-12-02 Ancillary Veronica Truong [facility] 1.2.840 .114 [id number] [facility] 08:47:35 09:47:35 Visit Julisa Hernandez [id number] [id number] [phone] Ca dical nal [address] [facility] 2019-11-18 2019-11-30 Ancillary Stacy Castilloasher Ybarra [facility] 1.2.840. 114 [id number] Univers 09:11:00 12:53:31 Visit Julisa Hernandez [id number] [id number] [phone] Ca dical nal [address] [facility] 2019-11-30 2019-11-30 Ancillary Veronica Truong [facility] 1.2.840 .114 [id number] Univers 08:42:50 09:42:50 Visit Julisa Hernandez [id number] [id number] [phone] Ca dical nal [address] [facility] 2019-11-24 2019-11-24 Ancillary Veronica Truong [facility] 1.2.840 .114 [id number] Univers 08:48:05 15:06:52 Visit Julisa Hernandez [id number] [id number] [phone] Ca dical nal [address] [facility] 2019-11-22 2019-11-22 Ancillary Veronica Truong [facility] 1.2.840 .114 [id number] [facility] 08:37:05 11:36:52 Visit Julisa Hernandez [id number] [id number] [phone] Ca dical nal 179 [facility] 2019-11-22 2019-11-22 Orders Doctor LIYA 1.2.840.114 [id number] Univers 00:00:00 00:00:00 Only Unassigned, DANIELA [id number] ity of [place] [facility] [id number] [place] as [phone] [address] 2019-11-11 2019-11-11 Orders Doctor LIYA 1.2.840.114 [id number] Univers 00:00:00 00:00:00 Only Unassigned, DANIELA [id number] ity of [place] [facility] [id number] [place] [phone] [address] 2019-10-30 2019-10-30 Inpatient E [facility] [id number] [facility] 03:07:00 15:15:00 Results This patient has no known results.
[2022-01-01] MEDS ORDERED: NA CHLORIDE 0.9% 1,000 ML ONE (11:31)
[2022-01-01 11:57] LABS: Protime INR 1.17
[2022-01-01 11:58] LABS: Absolute Lymphocytes (CBC) 1.2 K/uL (0.7-4.9); Hematocrit 34.6 % (39.6-49.0); Lymphocytes % 19.2 % (15.3-44.8); MPV 9.3 fL (7.6-11.3); RBC Red Blood Cell Count 4.32 M/uL (4.33-5.43)
[2022-01-01 12:06] LABS: Urine Blood Negative (Negative); Urine Glucose Negative (Negative); Urine Protein Negative (Negative); Urine pH 8.5 (5.0-7.0)
[2022-01-01 12:12] LABS: ALT/SGPT 19 U/L (12-78); AST/SGOT 16 U/L (15-37); Albumin 2.9 g/dL (3.4-5.0); Alkaline Phosphatase 113 U/L (45-117); BUN Blood Urea Nitrogen 9 mg/dL (7-18); Bicarbonate 32 mmol/L (21-32); Bilirubin Direct 0.3 mg/dL (0-0.2); Bilirubin Total 0.8 mg/dL (0.2-1.0); Glucose Level 137 mg/dL (74-106); Magnesium 2.1 mg/dL (1.8-2.4); NT PRO-BNP 72 pg/mL (<125); Protein, Total 8.2 g/dL (6.4-8.2); Sodium Level 137 mmol/L (136-145)
--- NOTE | 2022-01-01 13:59 | RAD REPORT ---
EXAM DESCRIPTION: Jeremie Single View01/01/2022 1:48 pm CLINICAL HISTORY: Cough COMPARISON: 2014 FINDINGS: The lungs appear clear of acute infiltrate. The heart is mildly enlarged IMPRESSION: No acute abnormalities displayed
[2022-01-01] MEDS ORDERED: TETANUS & DIPHTHERIA TOX,ADULT 0.5 ML VIAL ONE (14:07)
[2022-01-01] MEDS ORDERED: PIPERACIL/TAZO 3.375 GM VIAL IV ONE (14:07)
[2022-01-01] MEDS ORDERED: NA CHLORIDE 0.9% 100 ML IV ONE (14:07)
--- NOTE | 2022-01-01 14:22 | EDPHYS ---
Physician Documentation [facility] Name: Tej Fragoso Age: 56 yrs Sex: Male : 1965 Arrival Date: 01/01/2022 Time: 10:46 Bed 7 Private MD: MARIA R Physician Venkatesh Ferrell HPI: 01/01 11:22 This 56 yrs old Male presents to ER via EMS with complaints of left leg sammie swollen and weeping. 11:22 The patient presents with decreased range of motion, pain, swelling, tenderness. The sammie complaints affect the lateral aspect of left thigh, lateral aspect of left knee, lateral aspect of left calf, left lateral ankle, lateral aspect of left foot, left hamstring, posterior aspect of left knee, left calf, left Achilles, left heel, medial aspect of left thigh, medial aspect of left knee, medial aspect of left calf, left medial ankle, medial aspect of left foot, left quadriceps, left knee, left ramirez, anterior aspect of left ankle and dorsum of left foot. Context: The problem was sustained at an unknown site. Onset: The symptoms/episode began/occurred 1 year(s) ago. Modifying factors: The symptoms are alleviated by the symptoms are aggravated by movement. Associated signs and symptoms: The patient has no apparent associated signs or symptoms. Treatment prior to arrival includes: wyatt wrap, elevation of the extremity. The patient has experienced similar episodes in the past, multiple times. Historical: - Allergies: 10:51 No Known Allergies; vg1 - Home Meds: 10:51 None [Active]; vg1 - PMHx: 10:51 Diabetes; Hypertension; LYMPH EDEMA; vg1 - PSHx: 10:51 R AKA; vg1 - Immunization history:: Client reports having NOT received the Covid vaccine. - Social history:: Smoking status: Patient denies any tobacco usage or history of. - Family history:: not pertinent. ROS: 11:22 Constitutional: Negative for fever, chills, and weight loss, Eyes: Negative for injury, sammie pain, redness, and discharge, ENT: Negative for injury, pain, and discharge, Neck: Negative for injury, pain, and swelling, Cardiovascular: Negative for chest pain, palpitations, and edema, Respiratory: Negative for shortness of breath, cough, wheezing, and pleuritic chest pain, Abdomen/GI: Negative for abdominal pain, nausea, vomiting, diarrhea, and constipation, Back: Negative for injury and pain, : Negative for injury, bleeding, discharge, and swelling, Skin: Negative for injury, rash, and discoloration, Neuro: Negative for headache, weakness, numbness, tingling, and seizure, Psych: Negative for depression, anxiety, suicide ideation, homicidal ideation, and hallucinations, Allergy/Immunology: Negative for hives, rash, and allergies, Endocrine: Negative for neck swelling, polydipsia, polyuria, polyphagia, and marked weight changes. 11:22 MS/extremity: Positive for decreased range of motion, pain, swelling, tenderness, warmth, of the left leg. Exam: 11:22 Constitutional: This is a well developed, well nourished patient who is awake, alert, sammie and in no acute distress. Head/Face: Normocephalic, atraumatic. Eyes: Pupils equal round and reactive to light, extra-ocular motions intact. Lids and lashes normal. Conjunctiva and sclera are non-icteric and not injected. Cornea within normal limits. Periorbital areas with no swelling, redness, or edema. ENT: Nares patent. No nasal discharge, no septal abnormalities noted. Tympanic membranes are normal and external auditory canals are clear. Oropharynx with no redness, swelling, or masses, exudates, or evidence of obstruction, uvula midline. Mucous membranes moist. Neck: Trachea midline, no thyromegaly or masses palpated, and no cervical lymphadenopathy. Supple, full range of motion without nuchal rigidity, or vertebral point tenderness. No Meningismus. Chest/axilla: Normal chest wall appearance and motion. Nontender with no deformity. No lesions are appreciated. Cardiovascular: Regular rate and rhythm with a normal S1 and S2. No gallops, murmurs, or rubs. Normal PMI, no JVD. No pulse deficits. Respiratory: Lungs have equal breath sounds bilaterally, clear to auscultation and percussion. No rales, rhonchi or wheezes noted. No increased work of breathing, no retractions or nasal flaring. Abdomen/GI: Soft, non-tender, with normal bowel sounds. No distension or tympany. No guarding or rebound. No evidence of tenderness throughout. Back: No spinal tenderness. No costovertebral tenderness. Full range of motion. Male : Normal genitalia with no discharge or lesions. Skin: Warm, dry with normal turgor. Normal color with no rashes, no lesions, and no evidence of cellulitis. Neuro: Awake and alert, GCS 15, oriented to person, place, time, and situation. Cranial nerves II-XII grossly intact. Motor strength 5/5 in all extremities. Sensory grossly intact. Cerebellar exam normal. Normal gait. Psych: Awake, alert, with orientation to person, place and time. Behavior, mood, and affect are within normal limits. 11:22 Musculoskeletal/extremity: Calf tenderness, Edema, 4+ to the left upper thigh, left lower thigh, left knee, left midcalf, left ankle, left foot and left toes is noted, decreased sensation, Weight bearing: is unable to bear weight, DVT Exam: negative Homans' sign noted on exam, no appreciated bluish discoloration, pain, swelling, tenderness, erythema, increased warmth. Vital Signs: 10:47 BP 107 / 56; Pulse 75; Resp 18; Temp 97.9(O); Pulse Ox 95% on R/A; Weight 158.76 kg; vg1 Height 6 ft. 0 in. (182.88 cm); Pain 5/10; 11:00 BP 104 / 39; Pulse 76; Resp 17; Pulse Ox 95% on R/A; vg1 11:30 BP 109 / 61; Pulse 68; Resp 16; Pulse Ox 96% on R/A; vg1 12:00 BP 109 / 57; Pulse 70; Resp 16; Pulse Ox 96% on R/A; vg1 12:30 BP 123 / 67; Pulse 81; Resp 16; Pulse Ox 97% on R/A; vg1 13:12 BP 121 / 58; Pulse 75; Pulse Ox 96% on R/A; ap3 14:00 BP 131 / 75; Pulse 76; Resp 16; Pulse Ox 96% on R/A; vg1 15:00 BP 138 / 68; Pulse 81; Resp 22; Pulse Ox 95% on R/A; ap3 10:47 Body Mass Index 47.47 (158.76 kg, 182.88 cm) vg1 MDM: 10:56 Patient medically screened. [facility] 11:32 Differential diagnosis: contusion, abrasion, tendonitis. Data reviewed: vital signs, [facility] nurses notes, lab test result(s), EKG, radiologic studies, plain films. Data interpreted: actimize architect: rate is 75 beats/min, rhythm is regular, Pulse oximetry: on room air is 95 %. Test interpretation: by ED physician or midlevel provider: ECG, plain radiologic studies. 01/01 11:12 Order name: Glucose, Ancillary Testing; Complete Time: 13:49 [facility]VT 01/01 11:17 Order name: Basic Metabolic Panel [facility] 01/01 11:17 Order name: CBC with Diff [facility] 01/01 11:17 Order name: LFT's [facility] 01/01 11:17 Order name: Magnesium [facility] 01/01 11:17 Order name: NT PRO-BNP [facility] 01/01 11:17 Order name: PT-INR; Complete Time: 13:49 [facility] 01/01 11:17 Order name: Troponin HS; Complete Time: 13:49 [facility] 01/01 11:17 Order name: Urine Culture [facility] 01/01 11:17 Order name: Lactate; Complete Time: 13:49 [facility] 01/01 11:17 Order name: SARS-COV-2 RT PCR (Document "Date of Onset" if Symptomatic); Complete Time: [facility] 13:49 01/01 11:17 Order name: Procalcitonin; Complete Time: 13:49 [facility] 01/01 11:18 Order name: Basic Metabolic Panel; Complete Time: 13:49 [facility] 01/01 11:18 Order name: CBC with Automated Diff; Complete Time: 13:49 [facility] 01/01 11:17 Order name: XRAY Chest (1 view); Complete Time: 14:21 [facility] 01/01 11:18 Order name: Liver (Hepatic) Function; Complete Time: 13:49 [facility] 01/01 11:18 Order name: Magnesium; Complete Time: 13:49 [facility] 01/01 11:18 Order name: NT PRO-BNP; Complete Time: 13:49 [facility] 01/01 12:06 Order name: Urine Dipstick-Ancillary; Complete Time: 13:49 [facility] 01/01 12:42 Order name: Blood Culture Adult (2) [facility] 01/01 12:42 Order name: Blood Culture [facility] 01/01 13:50 Order name: Tib Fib Left XRAY; Complete Time: 15:52 [facility] 01/01 14:18 Order name: US Extremity Venous Unilateral Ltd [facility] 01/01 15:42 Order name: US; Complete Time: 15:52 [facility] 01/01 16:20 Order name: Wound Culture [facility] 01/01 11:17 Order name: EKG; Complete Time: 11:18 [facility] 01/01 11:17 Order name: Cardiac monitoring; Complete Time: 11:30 [facility] 01/01 11:17 Order name: EKG - Nurse/Tech; Complete Time: 11:41 [facility] 01/01 11:17 Order name: IV Saline Lock; Complete Time: 11:49 [facility] 01/01 11:17 Order name: Labs collected and sent; Complete Time: 11:49 [facility] 01/01 11:17 Order name: O2 Per Protocol; Complete Time: 11:22 [facility] 01/01 11:17 Order name: O2 Sat Monitoring; Complete Time: 11:22 [facility] 01/01 11:17 Order name: Urine Dipstick-Ancillary (obtain specimen); Complete Time: 12:18 [facility] 01/01 14:25 Order name: CONS Physician Consult [facility] 01/01 14:26 Order name: CONS Physician Consult [facility] 01/01 16:14 Order name: Wound dressing; Complete Time: 16:38 [facility] Administered Medications: 11:41 Drug: NS 0.9% 500 ml Route: IV; Rate: bolus; Site: right antecubital; vg1 12:15 Follow up: IV Status: Completed infusion; IV Intake: 500ml vg1 12:15 Drug: NS 0.9% 1000 ml Route: IV; Rate: 125 ml/hr; Site: right antecubital; vg1 14:52 Drug: Tetanus-Diphtheria Toxoid Adult 0.5 ml {Tan Room Supervisor: [employer]. Exp: vg1 03/15/2023. Lot #: [id number]. } Route: IM; Site: right deltoid; 15:33 Follow up: Response: No adverse reaction vg1 14:56 Drug: Zosyn (piperacillin-tazobactam) 3.375 grams Route: IVPB; Infused Over: 60 mins; vg1 Site: right antecubital; 15:55 Follow up: Response: Adverse reaction, Physician notified; IV Status: Order to vg1 discontinue infusion Disposition Summary: 01/01/22 14:21 Hospitalization Ordered Hospitalization Status: Inpatient Admission sammie Provider: Zhou Drake cha Location: Telemetry/MedSur (Inpatient) sammie Condition: Stable sammie Problem: new sammie Symptoms: have improved sammie Bed/Room Type: Standard sammie Room Assignment: 204(01/01/22 15:00) bd Diagnosis - Lymphedema, not elsewhere classified sammie - Cellulitis and acute lymphangitis of other parts of limb sammie - Type 2 diabetes mellitus with hyperglycemia sammie - Obesity, unspecified sammie - 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
--- NOTE | 2022-01-01 14:22 | ER ---
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 States pt c/o Left leg pain. Pt left leg is bandaged. Pt has Right AKA. Coronavirus screen: Vaccine status: Patient reports being unvaccinated. Client denies travel out of the [place] in the last 14 days. Ebola Screen: Patient negative for fever greater than or equal to 101.5 degrees Fahrenheit, and additional compatible Ebola Virus Disease symptoms. Initial Sepsis Screen: Does the patient meet any 2 criteria? No. Patient's initial sepsis screen is negative. Does the patient have a suspected source of infection? No. Patient's initial sepsis screen is negative. Risk Assessment: Do you want to hurt yourself or someone else? Patient reports no desire to harm self or others. Onset of symptoms was January 01, 2022. 10:47 Method Of Arrival: EMS: [facility] vg1 10:47 Acuity: DAVID 3 vg1 Triage Assessment: 10:51 General: Appears in no apparent distress. comfortable, Behavior is calm, cooperative. vg1 Pain: Complains of pain in left leg Pain currently is 5 out of 10 on a pain scale. at worst was 10 out of 10 on a pain scale. Historical: - Allergies: 10:51 No Known Allergies; vg1 - Home Meds: 10:51 None [Active]; vg1 - PMHx: 10:51 Diabetes; Hypertension; LYMPH EDEMA; vg1 - PSHx: 10:51 R AKA; vg1 - Immunization history:: Client reports having NOT received the Covid vaccine. - Social history:: Smoking status: Patient denies any tobacco usage or history of. - Family history:: not pertinent. Screenin:50 Abuse screen: Denies threats or abuse. Nutritional screening: No deficits noted. vg1 Tuberculosis screening: No symptoms or risk factors identified. Fall Risk No fall in past 12 months (0 pts). No secondary diagnosis (0 pts). IV access (20 points). Ambulatory Aid- Crutches/Cane/Walker (15 pts). Gait- Impaired (20 pts.). Mental Status- Oriented to own ability (0 pts). Total Sanchez Fall Scale indicates High Risk Score (45 or more points). Fall prevention measures have been instituted. Side Rails Up X 2 Placed Close to Nursing Station. Assessment: 10:50 General: Appears in no apparent distress. uncomfortable, Behavior is calm, cooperative. vg1 Pain: Complains of pain in left leg Pain currently is 5 out of 10 on a pain scale. at worst was 10 out of 10 on a pain scale. Neuro: Level of Consciousness is awake, alert, obeys commands, Oriented to person, place, time, situation. Cardiovascular: Patient's skin is warm and dry. Edema Left leg. Respiratory: Airway is patent Respiratory effort is even, unlabored. GI: No signs and/or symptoms were reported involving the gastrointestinal system. : No signs and/or symptoms were reported regarding the genitourinary system. EENT: No signs and/or symptoms were reported regarding the EENT system. Derm: Skin is pink, warm \\T\\ dry. Musculoskeletal: Swelling present in left leg. 12:00 Reassessment: Patient appears in no apparent distress at this time. No changes from vg1 previously documented assessment. Patient and/or family updated on plan of care and expected duration. Pain level reassessed. Patient is alert, oriented x 3, equal unlabored respirations, skin warm/dry/pink. 13:12 Reassessment: Patient and/or family updated on plan of care and expected duration. Pain ap3 level reassessed. Patient is alert, oriented x 3, equal unlabored respirations, skin warm/dry/pink. 14:17 Reassessment: Patient appears in no apparent distress at this time. No changes from vg1 previously documented assessment. Patient and/or family updated on plan of care and expected duration. Pain level reassessed. Patient is alert, oriented x 3, equal unlabored respirations, skin warm/dry/pink. 14:27 Reassessment: contacted Wound healing and spoke with Lali and notified of Dr Ferrell vg1 wanting pts wound wrapped. Order for consult has been submitted. 15:05 Reassessment: Pt assigned room, currently awaiting US. vg1 15:57 Reassessment: Notified by see supervisor Reji, pt having what appears to be Urticaria; pt vg1 denies itching, difficulty swallowing, or SOB. Pt states "this has happened before and will resolve within an hour, states due to iron deficiency " Pt was on Zosyn at the time of notification of urticaria, provider was notified and Zosyn d/c. Vital Signs: 10:47 BP 107 / 56; Pulse 75; Resp 18; Temp 97.9(O); Pulse Ox 95% on R/A; Weight 158.76 kg; vg1 Height 6 ft. 0 in. (182.88 cm); Pain 5/10; 11:00 BP 104 / 39; Pulse 76; Resp 17; Pulse Ox 95% on R/A; vg1 11:30 BP 109 / 61; Pulse 68; Resp 16; Pulse Ox 96% on R/A; vg1 12:00 BP 109 / 57; Pulse 70; Resp 16; Pulse Ox 96% on R/A; vg1 12:30 BP 123 / 67; Pulse 81; Resp 16; Pulse Ox 97% on R/A; vg1 13:12 BP 121 / 58; Pulse 75; Pulse Ox 96% on R/A; ap3 14:00 BP 131 / 75; Pulse 76; Resp 16; Pulse Ox 96% on R/A; vg1 15:00 BP 138 / 68; Pulse 81; Resp 22; Pulse Ox 95% on R/A; ap3 10:47 Body Mass Index 47.47 (158.76 kg, 182.88 cm) vg1 ED Course: 10:46 Patient arrived in ED. aa5 10:47 Jenny Jorgensen, RN is Primary Nurse. vg1 10:50 Patient has correct armband on for positive identification. Bed in low position. Call vg1 light in reach. Side rails up X2. 10:51 Triage completed. vg1 10:51 Arm band placed on. vg1 10:56 Venkatesh Ferrell MD is Attending Physician. sammie 11:05 [id number]. ap3 11:40 Initial lab(s) drawn, by me, sent to lab. Inserted saline lock: 22 gauge in right vg1 antecubital area, using aseptic technique. Blood collected. 11:41 EKG done, by ED staff, reviewed by Venkatesh Ferrell MD. em1 11:45 COVID swab sent to lab. vg1 13:29 First set of blood cultures drawn by me. vg1 13:48 XRAY Chest (1 view) In Process Unspecified. EDMS 14:13 Second set of blood cultures drawn by me. vg1 14:19 Zhou Drake MD is Hospitalizing Provider. sammie 14:30 ordered bariatric bed from [facility]. bd 14:32 Tib Fib Left XRAY In Process Unspecified. EDMS 14:33 confirmation number for bariatric bed....[id number]. bd 14:35 X-ray completed. Portable x-ray completed in exam room. Patient tolerated procedure mh1 well. 15:34 No provider procedures requiring assistance completed. Patient admitted, IV remains in vg1 place. Administered Medications: 11:41 Drug: NS 0.9% 500 ml Route: IV; Rate: bolus; Site: right antecubital; vg1 12:15 Follow up: IV Status: Completed infusion; IV Intake: 500ml vg1 12:15 Drug: NS 0.9% 1000 ml Route: IV; Rate: 125 ml/hr; Site: right antecubital; vg1 14:52 Drug: Tetanus-Diphtheria Toxoid Adult 0.5 ml {Building Services Engineer: [employer]. Exp: vg1 03/15/2023. Lot #: [id number]. } Route: IM; Site: right deltoid; 15:33 Follow up: Response: No adverse reaction vg1 14:56 Drug: Zosyn (piperacillin-tazobactam) 3.375 grams Route: IVPB; Infused Over: 60 mins; vg1 Site: right antecubital; 15:55 Follow up: Response: Adverse reaction, Physician notified; IV Status: Order to vg1 discontinue infusion Intake: 12:15 IV: 500ml; Total: 500ml. vg1 Outcome: 14:21 Decision to Hospitalize by Provider. sammie 15:34 Admitted to Tele accompanied by tech, via stretcher, room 204, with chart, Report vg1 called to Morenita GEIGER 15:34 Condition: good 15:34 Instructed on the need for admit. 16:41 Patient left the ED. vg1 Signatures: Dispatcher [employer] EDMS Tiffany Brown Corey, MD MD cha Harvey, Martha 1 Reji Ambrose 1 Kimberly Nascimento, RN RN aa5 Adriana Cobos RN RN ap3 Jenny Jorgensen, RN RN vg1 Corrections: (The following items were deleted from the chart) 10:52 10:47 Chief complaint: EMS states: picked up pt from Dr office, pt is new to office and vg1 suggested pt get Left Leg examined in ED. States pt c/o Left leg pain. Pt left leg is bandaged. Pt has Right leg amputated. vg1 14:25 14:21 Reassessment: Contacted wound healing for consultation and assistance. vg1 vg1
[2022-01-01] MEDS ORDERED: VANCOMYCIN 2 GM in NA CHLORIDE 0.9% 500 ML IVPB ONE (15:00)
--- NOTE | 2022-01-01 15:02 | RAD REPORT ---
EXAM DESCRIPTION: RAD - Tib Fib Left - 01/01/2022 2:33 pm CLINICAL HISTORY: Pain, diabetes, known lymphedema COMPARISON: None. FINDINGS: Bones appear osteopenic for age with no acute fracture. There is no dislocation or periost eal reaction noted. Advanced knee joint degenerative changes are present with medial compartment narr owing and marginal spurring. Advanced degenerative change present as well at the tibiotalar joint spa ce. Distal fibula degenerative changes are present as well. No foreign body in the soft tissues seen. Pronounced edema is seen in the soft tissues. In the latera l left leg soft tissues mid tibia level there are clustered and round lucent areas in the soft tissue s not seen elsewhere. Possibility of soft tissue infection cannot be excluded and needs clinical correlation. No history of open wound. IMPRESSION: Possible gas in the lateral mid tib-fib soft tissues. These lucencies are not seen elsew here on the examination. Possibility of soft tissue infection cannot be excluded. No history of leg wound was noted. Prominent knee and ankle degenerative change with no acute bone finding.
--- NOTE | 2022-01-01 15:41 | RAD REPORT ---
EXAM DESCRIPTION: US - Extremity Venous Uni Ltd - 01/01/2022 3:18 pm CLINICAL HISTORY: PAIN COMPARISON: None. TECHNIQUE: Real-time sonographic evaluation of the left lower extremity deep venous system was perfo rmed. FINDINGS: Normal compressibility, flow augmentation, phasic flow and spontaneous flow are identified in the left lower extremity common femoral, superficial femoral, popliteal and posterior tibial vein s. No intraluminal filling defects seen. IMPRESSION: No DVT in the left lower extremity.
[2022-01-01] MEDS ORDERED: ONDANSETRON 4 MG/2 ML VIAL IV PRN (15:46)
[2022-01-01] MEDS ORDERED: ACETAMINOPHEN 325 MG TABLET PO PRN (15:54)
[2022-01-01] MEDS: NA CHLORIDE 0.9% 1,000 ML IV SCH (16:44)
[2022-01-01] MEDS: ENOXAPARIN 40 MG/0.4 ML SQ SCH (16:55)
[2022-01-01] MEDS ORDERED: Levofloxacin500mg IV 500 MG/100 ML BAG IV SCH (17:00)
[2022-01-01 17:07] VITALS: BMI 52.9
[2022-01-01] MEDS: VANCOMYCIN 2 GM in NA CHLORIDE 0.9% 500 ML IVPB SCH (17:43)
[2022-01-01] MEDS: FAMOTIDINE 20 MG/2 ML VIAL IV SCH (20:40)
[2022-01-01] MEDS ORDERED: D50W 25 GM/50 ML SYRINGE IV PRN (20:48)
[2022-01-01] MEDS ORDERED: GLUCAGON 1 MG/VIAL IM PRN (20:48)
[2022-01-01] MEDS: SILVER SULFADIAZINE 1% 25 GM TOP SCH (21:00)
[2022-01-01] MEDS: INSULIN -REGULAR HUMAN 50 UNIT/0.5 ML ML SQ SCH (21:00)
[2022-01-02] MEDS ORDERED: PIPER TAZO 3.375 GM in NA CHLORIDE 0.9% 100 ML IV SCH (01:00)
[2022-01-02] MEDS: VANCOMYCIN 2 GM in NA CHLORIDE 0.9% 500 ML IVPB SCH ×4 (02:34→17:04)
[2022-01-02 04:14] LABS: Hematocrit 32.1 % (39.6-49.0); Lymphocytes % 14.8 % (15.3-44.8); MPV 9.5 fL (7.6-11.3); RBC Red Blood Cell Count 4.08 M/uL (4.33-5.43)
[2022-01-02 04:33] LABS: BUN Blood Urea Nitrogen 7 mg/dL (7-18); Bicarbonate 29 mmol/L (21-32); Glucose Level 160 mg/dL (74-106); HDL Cholesterol 35 mg/dL (40-60); LDL Cholesterol, Calculated 42 (<130); Potassium 3.8 mmol/L (3.5-5.1); Sodium Level 139 mmol/L (136-145)
[2022-01-02] MEDS: INSULIN -REGULAR HUMAN 50 UNIT/0.5 ML ML SQ SCH ×4 (07:23→21:26)
[2022-01-02] MEDS: FAMOTIDINE 20 MG/2 ML VIAL IV SCH ×2 (08:43→21:09)
[2022-01-02] MEDS: PANTOPRAZOLE 40MG TABLET PO SCH (08:43)
[2022-01-02] MEDS: FUROSEMIDE 40 MG/4 ML VIAL IV SCH (08:44)
[2022-01-02] MEDS: ENOXAPARIN 40 MG/0.4 ML SQ SCH (08:44)
[2022-01-02] MEDS: SILVER SULFADIAZINE 1% 25 GM TOP SCH ×2 (08:44→21:00)
[2022-01-02] MEDS: Levofloxacin 750mg IV 750 MG/150 ML BAG IV SCH (08:53)
[2022-01-02] MEDS ORDERED: NA CHLORIDE 0.9% 1,000 ML ONE (09:48)
[2022-01-02] MEDS ORDERED: LIDOCAINE 1% MPF 5 ML VIAL ONE (10:29)
[2022-01-02] MEDS ORDERED: propofoL 200 MG/20 ML VIAL IV ONE (10:29)
[2022-01-02] MEDS ORDERED: FENTANYL CITR 100 MCG/2 ML ONE (10:29)
[2022-01-02] MEDS ORDERED: KETOROLAC 30 MG/ML INJ ONE (11:02)
[2022-01-02] MEDS ORDERED: ONDANSETRON 4 MG/2 ML VIAL ONE (11:02)
[2022-01-02] MEDS ORDERED: Phenylephrine HCl 10 MG/ML 1 ML VIAL ONE (11:17)
[2022-01-02] MEDS ORDERED: NS 0.9% VIAL 10 ML ONE (11:17)
--- NOTE | 2022-01-02 11:27 | P.BOP ---
Preoperative diagnosis: Lymphedema, cellulitis, abscess, necrotic wound left leg, sacral stage 3 ul Postoperative diagnosis: morbid obesity Primary procedure: Excisional debridement necrotic wound 10x7x3 with abscess drainage Estimated blood loss: <20cc Specimen: culture, necrotic tissue Findings: necrotic tissue Anesthesia: General Complications: None Transferred to: Recovery Room Condition: Good
[2022-01-02] MEDS ORDERED: SUCCINYLCHOLINE 20 MG/ML (10 ML) IV ONE (11:43)
[2022-01-02] MEDS: NA CHLORIDE 0.9% 1,000 ML IV SCH (11:46)
--- NOTE | 2022-01-02 15:24 | CON ---
Date of Consultation: 01/02/2022 Reason For Consultation: This is a consult for cellulitis of the left leg, possible debridement. History Of Present Illness: This is the case of a 56-year-old patient with chronic history of lymphe divya with a new open wound on the left calf region that shows evidence of cellulitis and probably ching per infection. Surgical consult was obtained for evaluation and debridement of that area. It is drew d for him to see in that region. He does not have anybody following his lymphedema at this moment, a lthough they are large and extensive. He was advised the importance of seeing a lymphedema center fo [place]. He does not remember how he has these open wounds. He just noticed recently his bed where i t had some stains on it from the leg. He denies any dysuria, hematuria, hematochezia, melena. Denie s any recent travel out of the country. Denies any trauma that he can remember. Allergies: NONE. Medications: Reviewed. Past Medical History: Diabetes, hypertension, lymphedema. Primary Doctor: He says he used to use Dr. anymore, but he was explained the importance o f following with the doctor in the future. Social History: He does not smoke. Does not drink alcohol. Review of Systems: Ten points otherwise unremarkable. See H and P. Physical Examination: General: The patient is awake, alert. HEENT: Pupils are equal and reactive. Anicteric. Neck: Supple. Chest: Clear. Abdomen: Soft and depressible. Extremities: Lymphedema present on the left lower extremity. The patient also has an open wound on the posterior calf region with drainage. Pulses still present. No cyanosis. No Homans signs. Neuro: Cranial nerves 2 through 12 grossly within normal limits. Laboratory Data: Blood work shows WBC count of 6.9 with hemoglobin of 10.2. INR is 1.17. Potassium 3.8. Tibial and fibular x-ray interpreted by Dr. Peralta as possible gas in the lateral mid tib-fib soft tissue on the left side near the area where the patient is draining. Lymphedema present. No a cute fracture. Venous Doppler shows no DVT. Assessment: A 56-year-old patient with cellulitis of the left leg, chronic lymphedema leg s, most of the time bedridden with drainage coming from the wound and also an x-ray that may suggest gas in that region. The patient fully explained the need for evaluation under anesthesia and debride ment with benefits, alternatives, and risks including, but not limited to infection, bleeding, damage to adjacent structures, anesthesia complication, nonhealing wound, WI, and even . He also unde rstands this may not relieve any symptoms. He might need more than one surgical intervention. He un derstands the importance of losing weight done, the importance with staying compliant with hypertensi ve and diabetes treatment. Also, lymphedema is a chronic condition, he has to be seen by [facility]. When he gets discharged from the hospital, we also invited him to come [facility] for [facility]up of his wounds. CAR/EVERARDO Voice ID: [id number] Report ID: [id number]
--- NOTE | 2022-01-02 16:09 | OP ---
Date of Procedure: 01/02/2022 Surgeon: Shay Ambrose MD Preoperative Diagnoses: Chronic lymphedema, history of peripheral vascular disease, cellulitis and a bscess, necrotic wound of the left leg and also sacral decubitus ulcer, morbid obesity. Postoperative Diagnoses: Chronic lymphedema, history of peripheral vascular disease, cellulitis and abscess, necrotic wound of the left leg and also sacral decubitus ulcer, morbid obesity. Procedure: Excisional debridement of necrotic wound 10 x 7 x 3 cm of the left leg with abscess drain age. Estimated Blood Loss: Less than 20 cc. Specimen: Culture of necrotic wounds. Finding: Necrotic tissue, large cavity. Anesthesia: General plus local. Indication: This is the case of a 56-year-old patient, who comes to us with cellulitis of the left l eg. Surgical consult was obtained for debridement. Benefits, alternatives, and risks of debridement and drainage of an abscess fully explained to the patient, which include, but not limited to infecti on, bleeding, damage to adjacent structures, anesthesia complication, recurrence, LA, and even . He also understands this may not relieve any symptoms. He understands the importance of lymphedema control and losing weight, also the importance of compliance with dressing changes and wound care. The area was marked by me and the patient in the holding room. Procedure In Detail: The patient was brought to the operating room, placed in supine position. Anes thesia was done without complication. Left leg was prepped and draped in the usual sterile fashion. We have a necrotic wound already present in that area. A time-out was called. Local anesthesia was applied. We had to utilize that wound and is very large, so we proceeded to open the area, removing necrotic tissue, cultured the purulent discharge. The area is about 10 x 7 x 3 cm. Hemostasis was obtained. Irrigation was done and the area was packed with wet-to-dry dressing. The patient tolerat ed the procedure well. The patient was sent to recovery in stable condition. Plan: The real plan on this patient obviously is continue wound care and then switch to a wound VAC. CAR/EVERARDO Voice ID: [id number] Report ID: [id number]
[2022-01-02] MEDS ORDERED: ENOXAPARIN 40 MG/0.4 ML SQ SCH (17:00)
--- NOTE | 2022-01-02 17:03 | P.HP ---
Certification for Inpatient Patient admitted to: Inpatient With expected LOS: >2 Midnights Patient will require the following post-hospital care: Home Health Services Practitioner: I am a practitioner with admitting privileges, knowledge of patient current condition, hospital course, and medical plan of care. Services: Services provided to patient in accordance with Admission requirements found in Title 42 Section 412.3 of the Code of Federal Regulations Patient History Date of Service: 01/02/22 Primary Care Provider: Mikey Patel Reason for admission: cellulitis of the left leg, chf exacerbation History of Present Illness: Patient is a pleasant Bulgarian speaking patient who came to the office yesterday He has a 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 The patient also has diabetes htn and hyperlipidemia. The patient has not been taking his medications for about a year. He has been sleeping in a recliner for several years now. Which is sign of sleep apnea. He has recently had swelling pain and foul odor to the left leg. Which prompted him to come into the office. However considering his multiple medical problems the patient was sent to the ER for admission. Allergies No Known Drug Allergies Allergy (Verified 06/05/15 23:57) Unknown Home Medications: NK [No Home Meds] 01/01/22 - Past Medical/Surgical History Has patient received pneumonia vaccine in the past: Yes Diabetic: Yes -: NIDDM -: Lymphedema -: Obese -: Kidney stones -: Rt AKA - Social History Smoking Status: Former smoker Alcohol use: No CD- Drugs: No Caffeine use: No Place of Residence: Home Physical Examination - Vital Signs Temperature: 98.0 F Blood Pressure: 131/56 Pulse: 62 Respirations: 16 Pulse Ox (%): 94 Assessment and Plan - Problems (Diagnosis) (1) Cellulitis Onset Date: 06/06/15 Current Visit: No Status: Acute Plan: has been seed and had surgical debridement of the leg by Dr. Ambrose. Will continue the antibiotics. Awaiting results of the cultures Qualifiers: Site of cellulitis of extremity: lower extremity Laterality: left (2) HTN (hypertension) Current Visit: Yes Status: Acute Plan: will consider acei and adjust as necessary Qualifiers: Hypertension type: primary hypertension Qualified Code(s): I10 - Essential (primary) hypertension (3) Hyperlipidemia associated with type 2 diabetes mellitus Current Visit: Yes Status: Chronic Plan: check his lipid profile. Will restart the atorvastin (4) Diabetes mellitus type II, non insulin dependent Onset Date: 06/06/15 Current Visit: No Status: Acute Plan: will restart metformin and sliding scale insulin. (5) Elephantiasis (nonfilarial) Current Visit: Yes Status: Chronic Plan: will get arterial doppler. Start lasix. Will need exterminator helper termite compression therapy. Such as a custom dasha wrap. Will consult hospital social worker for this as well as wound care. exterminator helper termite plans is to work him up for heart failure, pvd and sleep apnea. We can start the work up in the hospital. Work on out patient sleep study or home sleep study - Advance Directives Does patient have a Living Will: No Does patient have a Durable POA for Healthcare: No - Code Status/Comfort Care Code Status Assessed: Yes Code Status: Full Code Physician Review: Patient Assessed, Agree with Above Assessment and Plan Critical Care: No Time Spent Managing Pts Care (In Minutes): 60
[2022-01-02] MEDS: ATORVASTATIN 40 MG TAB PO SCH (21:09)
--- NOTE | 2022-01-02 21:18 | CON ---
Date of Consultation: 01/02/2022 Reason For Consultation: Significant lower extremity edema. History Of Present Illness: This is a 56-year-old male, morbidly obese, with chronic lymphedema who had cellulitis and wound infection of his leg. He has history of hypertension, diabetes, severe lymp hedema and severe obstructive sleep apnea. I was asked to see him for possible heart failure. He do es have shortness of breath on activities and sleeps in a recliner all the time, but the patient has severe sleep apnea that wakes him up every few seconds if he sleeps on his back. He does not have an y chest pain or known cardiac history. Past Medical History: As outlined above in the HPI. Medications: Refer reconciliation sheet for detailed list. Allergies: NO KNOWN DRUG ALLERGIES. Family History: No premature coronary artery disease or cancer. Social History: Does not smoke or drink. Does not use any drugs. Review of Systems: All systems reviewed and they were negative except for those mentioned in HPI. Physical Examination: Vital Signs: Reviewed. Head And Neck: Pupils are equal and reactive to light. Intact eye movements. No JVD. No cervical lymphadenopathy. Neck: Supple. Lungs: Clear to auscultation bilaterally. No rhonchi, rales, or crackles. No accessory muscle use. Heart: Regular rate and rhythm. No extra sounds. Abdomen: Soft, nontender. Bowel sounds positive. No organomegaly. No masses or hernia. No rigidi ty or rebound. Extremities: Significant for edema bilaterally, worse on the left with the recent surgical intervent ion on the left leg wound. Neurologic: Alert, awake, oriented x3. No acute focal deficits appreciated. Investigations: Hemoglobin is 10.2, white blood cell count 6.9, creatinine is 0.63. Troponin is neg ative. Assessment And Recommendations: 1.Significant lymphedema and fluid retention, possible congestive heart failure. Please obtain echo cardiogram. Further recommendations accordingly. 2.Pain in legs with lymphedema. Discussed with the primary care, Dr. Drake who has a concern for pe ripheral vascular disease. Obtain an arterial Doppler and add further recommendations accordingly. Thank you for the consult. /EVERARDO Voice ID: [id number] Report ID: [id number]
[2022-01-03] MEDS ORDERED: VANCOMYCIN 2 GM in NA CHLORIDE 0.9% 500 ML IVPB SCH (06:00)
[2022-01-03] MEDS: PANTOPRAZOLE 40MG TABLET PO SCH (06:01)
[2022-01-03] MEDS: NA CHLORIDE 0.9% 1,000 ML IV SCH (06:03)
[2022-01-03] MEDS: INSULIN -REGULAR HUMAN 50 UNIT/0.5 ML ML SQ SCH ×4 (07:30→21:00)
[2022-01-03] MEDS: SILVER SULFADIAZINE 1% 25 GM TOP SCH ×2 (09:00→21:00)
[2022-01-03] MEDS: FAMOTIDINE 20 MG/2 ML VIAL IV SCH ×2 (10:17→20:59)
[2022-01-03] MEDS: METFORMIN HCL 500 MG TAB PO SCH ×2 (10:17→16:49)
[2022-01-03] MEDS: ENOXAPARIN 40 MG/0.4 ML SQ SCH (10:17)
[2022-01-03] MEDS: Levofloxacin 750mg IV 750 MG/150 ML BAG IV SCH (10:17)
[2022-01-03] MEDS: FUROSEMIDE 40 MG/4 ML VIAL IV SCH (10:18)
--- NOTE | 2022-01-03 11:27 | RAD REPORT ---
EXAM DESCRIPTION: US - Lower Extremity Artery Uni Ltd - 01/03/2022 10:06 am CLINICAL HISTORY: pad COMPARISON: No comparisons FINDINGS: Color Doppler, grayscale, and spectral analysis was performed. Monophasic flow in the left common femoral artery to the left popliteal artery. No flow identified wi thin the posterior tibial or dorsalis pedis arteries. IMPRESSION: Severe left lower extremity peripheral vascular disease. Monophasic flow at the left com mon femoral artery. Consider a more proximal stenosis for example at the iliac vessels. Occluded dors minda pedis and posterior tibial arteries.
[2022-01-03 12:56] LABS: C.diff Antigen/Toxin Ag neg : Tox neg (NEG : NEG)
--- NOTE | 2022-01-03 13:25 | ECHO ---
HEIGHT: 6 ft 0 in WEIGHT: 372 lb 2 oz DATE OF STUDY: 01/03/[address]: Golden Woo MD 2-DIMENSIONAL: YES M.MODE: YES DOPPLER: YES COLOR FLOW: YES TDS: YES PORTABLE: NO DEFINITY: NO BUBBLE STUDY: NO DIAGNOSIS: CONGESTIVE HEART FAILURE CARDIAC HISTORY: CATHERIZATION: NO SURGERY: NO PROSTHETIC VALVE: NO PACEMAKER: NO MEASUREMENTS (cm) DIASTOLIC (NORMALS) SYSTOLIC (NORMALS) IVSd (0.6-1.2) LA Diam (1.9-4.0) LVEF 65-69% LVIDd (3.5-5.7) LVIDs (2.0-3.5) %FS % LVPWd (0.6-1.2) Ao Diam (2.0-3.7) 2 DIMENSIONAL ASSESSMENT: RIGHT ATRIUM: NORMAL LEFT ATRIUM: NORMAL RIGHT VENTRICLE: NORMAL LEFT VENTRICLE: NORMAL TRICUSPID VALVE: NORMAL MITRAL VALVE: NORMAL PULMONIC VALVE: NORMAL AORTIC VALVE: NORMAL PERICARDIAL EFFUSION: NONE AORTIC ROOT: NORMAL LEFT VENTRICULAR WALL MOTION: NORMAL DOPPLER/COLOR FLOW: NORMAL COMMENTS: TECHNICALLY DIFFICULT STUDY. GROSSLY NORMAL LEFT VENTRICULAR SIZE AND FUNCTION. NO EFFUSION. TECHNOLOGIST: Shawn DELGADO
[2022-01-03] MEDS: VANCOMYCIN 2 GM in NA CHLORIDE 0.9% 500 ML IVPB SCH (15:20)
--- NOTE | 2022-01-03 17:08 | P.PN ---
Subjective Date of Service: 01/03/22 Primary Care Provider: Mikey Patel Chief Complaint: cellulitis of the left leg, chf exacerbation Subjective: No new changes Review of Systems 10-point ROS is otherwise unremarkable Physical Examination - Vital Signs Temperature: 97.4 F Blood Pressure: 111/52 Pulse: 64 Respirations: 18 Pulse Ox (%): 91 - Physical Exam General: Alert, In no apparent distress HEENT: Atraumatic, PERRLA, EOMI Neck: Supple, JVD not distended Respiratory: Clear to auscultation bilaterally, Normal air movement Cardiovascular: Regular rate/rhythm, Normal S1 S2, Edema Gastrointestinal: Normal bowel sounds, No tenderness Musculoskeletal: No tenderness Integumentary: No rashes Neurological: Normal speech, Normal tone, Normal affect Lymphatics: No axilla or inguinal lymphadenopathy Assessment And Plan - Current Problems (Diagnosis) (1) Peripheral vascular disease Current Visit: Yes Status: Chronic Plan: severe pvd on arterial doppler. Will need to work on out patient revascularization. He may be a candidate for intervention (2) Cellulitis Onset Date: 06/06/15 Current Visit: No Status: Acute Plan: has been seed and had surgical debridement of the leg by Dr. Ambrose. Will continue the antibiotics. Awaiting results of the cultures 3.11 Awaiting culture results from the surgical excision. Qualifiers: Site of cellulitis of extremity: lower extremity Laterality: left (3) HTN (hypertension) Current Visit: Yes Status: Acute Plan: will consider acei and adjust as necessary Qualifiers: Hypertension type: primary hypertension Qualified Code(s): I10 - Essential (primary) hypertension (4) Hyperlipidemia associated with type 2 diabetes mellitus Current Visit: Yes Status: Chronic Plan: check his lipid profile. Will restart the atorvastin (5) Diabetes mellitus type II, non insulin dependent Onset Date: 06/06/15 Current Visit: No Status: Acute Plan: will restart metformin and sliding scale insulin. (6) Elephantiasis (nonfilarial) Current Visit: Yes Status: Chronic Plan: will get arterial doppler. Start lasix. Will need termite exterminator compression therapy. Such as a custom dasha wrap. Will consult social media analyst for this as well as wound care. termite exterminator plans is to work him up for heart failure, pvd and sleep apnea. We can start the work up in the hospital. Work on out patient sleep study or home sleep study 3.11 he has ef of 60-65% possible diastolic dysfunction. Discharge Plan: Home Plan to discharge in: 24 Hours - Code Status/Comfort Care Code Status Assessed: No Physician Review: Patient Assessed, Agree with Above Assessment and Plan Critical Care: No Time Spent Managing PTS Care (In Minutes): 20
--- NOTE | 2022-01-03 19:51 | PN ---
Status post I and D and debridement of necrotic ulcer on the left leg. Subjective: The patient is doing well. No complaint. Physical Examination: Chest: Clear. Abdomen: Soft and depressible. Extremities: Left lower extremity intact surgical site. Decreased swelling. Plan: It will be ideal to use a wound VAC in this patient in the left leg, probably starting tomorro w. Today, dressing changes will minimize due to history of bleeding in the past. Encouraged ambulat ion, DVT prophylaxis, incentive spirometry. HM/MODL Voice ID: [id number] Report ID: [id number]
[2022-01-03] MEDS: ATORVASTATIN 40 MG TAB PO SCH (20:59)
[2022-01-03] MEDS: JUVEN PACKET PO SCH (21:02)
--- NOTE | 2022-01-03 23:54 | PN ---
Patient was seen by Dr. Medrano. He was admitted to Dr. Drake for hypertension, diabetes, obesity, an d sleep apnea. Echocardiogram was ordered, which was normal with normal ejection fraction. Arterial Doppler was ordered for peripheral arterial disease and it showed severe left lower extremity periph eral vascular disease consistent with a proximal stenosis at the iliac level, occluded dorsalis pedis and posterior tibial arteries. I think patient needs to continue his present regimen for now. I th ink we need to consider an abdominal angiogram with runoff in the near future. I will make arrangeme nts for that. I will discuss the case further with Dr. Drake. JEM/EVERARDO Voice ID: [id number] Report ID: [id number]
[2022-01-04] MEDS: NA CHLORIDE 0.9% 1,000 ML IV SCH ×2 (00:47→22:43)
[2022-01-04] MEDS: VANCOMYCIN 2 GM in NA CHLORIDE 0.9% 500 ML IVPB SCH (05:28)
[2022-01-04] MEDS: PANTOPRAZOLE 40MG TABLET PO SCH (05:32)
[2022-01-04] MEDS: INSULIN -REGULAR HUMAN 50 UNIT/0.5 ML ML SQ SCH ×4 (07:30→21:00)
[2022-01-04] MEDS: JUVEN PACKET PO SCH ×2 (09:00→22:40)
[2022-01-04] MEDS: ENOXAPARIN 40 MG/0.4 ML SQ SCH (09:23)
[2022-01-04] MEDS: FAMOTIDINE 20 MG/2 ML VIAL IV SCH ×2 (09:23→22:40)
[2022-01-04] MEDS: Levofloxacin 750mg IV 750 MG/150 ML BAG IV SCH (09:23)
[2022-01-04] MEDS: METFORMIN HCL 500 MG TAB PO SCH ×2 (09:24→16:50)
[2022-01-04] MEDS: FUROSEMIDE 40 MG/4 ML VIAL IV SCH (09:24)
[2022-01-04] MEDS: SILVER SULFADIAZINE 1% 25 GM TOP SCH ×2 (09:25→21:00)
--- NOTE | 2022-01-04 10:28 | P.PN ---
Subjective Date of Service: 01/04/22 Primary Care Provider: Mikey Patel Chief Complaint: cellulitis of the left leg, chf exacerbation Subjective: No new changes Review of Systems 10-point ROS is otherwise unremarkable Physical Examination - Vital Signs Temperature: 98.1 F Blood Pressure: 129/53 Pulse: 63 Respirations: 18 Pulse Ox (%): 95 - Physical Exam General: Alert, In no apparent distress HEENT: Atraumatic, PERRLA, EOMI Neck: Supple, JVD not distended Respiratory: Clear to auscultation bilaterally, Normal air movement Cardiovascular: Regular rate/rhythm, Normal S1 S2 Gastrointestinal: Normal bowel sounds, No tenderness Musculoskeletal: No tenderness Integumentary: No rashes Neurological: Normal speech, Normal tone, Normal affect Lymphatics: No axilla or inguinal lymphadenopathy - Studies Microbiology Data (last 24 hrs): 01/01/22 12:05 Clean Catch Urine [place] Count - Final >100,000 CFU/ML. 01/01/22 12:05 Clean Catch Urine - Final Streptococcus Agalactiae Grp B Assessment And Plan - Current Problems (Diagnosis) (1) Peripheral vascular disease Current Visit: Yes Status: Chronic Plan: severe pvd on arterial doppler. Will need to work on out patient rev ascularization. He may be a candidate for intervention 3 Plans for further vascular studies in the future. Most likely will need an interventional radiologist. We need one that can provide transportation. (2) Cellulitis Onset Date: 06/06/15 Current Visit: No Status: Acute Plan: has been seed and had surgical debridement of the leg by Dr. Ambrose. Will continue the antibiotics. Awaiting results of the cultures 3.. Plans for wound vac to the wound. awaiting Dr. Ambrose who did the debridement. Qualifiers: Site of cellulitis of extremity: lower extremity Laterality: left (3) HTN (hypertension) Current Visit: Yes Status: Acute Plan: will consider acei and adjust as necessary Qualifiers: Hypertension type: primary hypertension Qualified Code(s): I10 - Essential (primary) hypertension (4) Hyperlipidemia associated with type 2 diabetes mellitus Current Visit: Yes Status: Chronic Plan: check his lipid profile. Will restart the atorvastin (5) Diabetes mellitus type II, non insulin dependent Onset Date: 06/06/15 Current Visit: No Status: Acute Plan: will restart metformin and sliding scale insulin. (6) Elephantiasis (nonfilarial) Current Visit: Yes Status: Chronic Plan: will get arterial doppler. Start lasix. Will need senior care compression therapy. Such as a custom dasha wrap. Will consult social economist for this as well as wound care. senior care plans is to work him up for heart failure, pvd and sleep apnea. We can start the work up in the hospital. Work on out patient sleep study or home sleep study 3.11 he has ef of 60-65% possible diastolic dysfunction. Discharge Plan: Home Plan to discharge in: 48 Hours - Code Status/Comfort Care Code Status Assessed: No Physician Review: Patient Assessed, Agree with Above Assessment and Plan Critical Care: No Time Spent Managing PTS Care (In Minutes): 20
[2022-01-04] MEDS: AMOXICILLIN TRIHYDR 250 MG CAP PO SCH ×2 (15:47→22:39)
[2022-01-04] MEDS ORDERED: VANCOMYCIN 2 GM in NA CHLORIDE 0.9% 500 ML IVPB SCH (18:00)
[2022-01-04] MEDS: ATORVASTATIN 40 MG TAB PO SCH (22:39)
[2022-01-05] MEDS: PANTOPRAZOLE 40MG TABLET PO SCH (07:05)
[2022-01-05] MEDS: INSULIN -REGULAR HUMAN 50 UNIT/0.5 ML ML SQ SCH ×4 (07:30→21:00)
[2022-01-05] MEDS: SILVER SULFADIAZINE 1% 25 GM TOP SCH ×2 (09:00→21:22)
[2022-01-05] MEDS: JUVEN PACKET PO SCH ×2 (09:00→21:21)
[2022-01-05] MEDS: METFORMIN HCL 500 MG TAB PO SCH ×2 (11:11→16:40)
[2022-01-05] MEDS: AMOXICILLIN TRIHYDR 250 MG CAP PO SCH ×3 (11:11→21:20)
[2022-01-05] MEDS: FUROSEMIDE 40 MG/4 ML VIAL IV SCH (11:12)
[2022-01-05] MEDS: FAMOTIDINE 20 MG/2 ML VIAL IV SCH ×2 (11:13→21:19)
[2022-01-05] MEDS: ENOXAPARIN 40 MG/0.4 ML SQ SCH (11:13)
[2022-01-05] MEDS: Levofloxacin 750mg IV 750 MG/150 ML BAG IV SCH (11:14)
--- NOTE | 2022-01-05 13:07 | P.PN ---
Subjective Date of Service: 01/05/22 Primary Care Provider: Mikey Patel Chief Complaint: cellulitis of the left leg, chf exacerbation Subjective: No new changes Review of Systems 10-point ROS is otherwise unremarkable Physical Examination - Vital Signs Temperature: 97.6 F Blood Pressure: 129/60 Pulse: 73 Respirations: 18 Pulse Ox (%): 96 - Physical Exam General: Alert, In no apparent distress HEENT: Atraumatic, PERRLA, EOMI Neck: Supple, JVD not distended Respiratory: Clear to auscultation bilaterally, Normal air movement Cardiovascular: Regular rate/rhythm, Normal S1 S2 Gastrointestinal: Normal bowel sounds, No tenderness Musculoskeletal: No tenderness Integumentary: No rashes Neurological: Normal speech, Normal tone, Normal affect Lymphatics: No axilla or inguinal lymphadenopathy - Studies Microbiology Data (last 24 hrs): 01/01/22 12:05 Clean Catch Urine [place] Count - Final >100,000 CFU/ML. 01/01/22 12:05 Clean Catch Urine - Final Streptococcus Agalactiae Grp B Assessment And Plan - Current Problems (Diagnosis) (1) Peripheral vascular disease Current Visit: Yes Status: Chronic Plan: severe pvd on arterial doppler. Will need to work on out patient rev ascularization. He may be a candidate for intervention 01/05. Patient is doing well. Plans on referral to Interventional radiology for revascularization. (2) Cellulitis Onset Date: 06/06/15 Current Visit: No Status: Acute Plan: has been seed and had surgical debridement of the leg by Dr. Ambrose. Will continue the antibiotics. Awaiting results of the cultures 01.05 Plan to discharge with wound vac. On vanc and levaquin. Planning on following up with Dr. Ambrose in the Wound care center. Will have them work on getting him a dasha wrap. Qualifiers: Site of cellulitis of extremity: lower extremity Laterality: left (3) HTN (hypertension) Current Visit: Yes Status: Acute Plan: will consider acei and adjust as necessary Qualifiers: Hypertension type: primary hypertension Qualified Code(s): I10 - Essential (primary) hypertension (4) Hyperlipidemia associated with type 2 diabetes mellitus Current Visit: Yes Status: Chronic Plan: check his lipid profile. Will restart the atorvastin (5) Diabetes mellitus type II, non insulin dependent Onset Date: 06/06/15 Current Visit: No Status: Acute Plan: will restart metformin and sliding scale insulin. (6) Elephantiasis (nonfilarial) Current Visit: Yes Status: Chronic Plan: will get arterial doppler. Start lasix. Will need penitentiary compression therapy. Such as a custom dasha wrap. Will consult licensed social worker for this as well as wound care. penitentiary plans is to work him up for heart failure, pvd and sleep apnea. We can start the work up in the hospital. Work on out patient sleep study or home sleep study 3.11 he has ef of 60-65% possible diastolic dysfunction. Discharge Plan: Home Plan to discharge in: 24 Hours - Code Status/Comfort Care Code Status Assessed: No Physician Review: Patient Assessed, Agree with Above Assessment and Plan Critical Care: No Time Spent Managing PTS Care (In Minutes): 20
[2022-01-05] MEDS: NA CHLORIDE 0.9% 1,000 ML IV SCH (16:39)
[2022-01-05] MEDS: ATORVASTATIN 40 MG TAB PO SCH (21:19)
[2022-01-05] MEDS: MORPHINE 2 MG/ML SYR IV PRN (21:20)
[2022-01-06] MEDS: PANTOPRAZOLE 40MG TABLET PO SCH (05:38)
[2022-01-06 06:54] LABS: ALT/SGPT 17 U/L (12-78); Albumin 2.8 g/dL (3.4-5.0); Alkaline Phosphatase 100 U/L (45-117); BUN Blood Urea Nitrogen 19 mg/dL (7-18); Bicarbonate 34 mmol/L (21-32); Bilirubin Total 0.8 mg/dL (0.2-1.0); Glucose Level 135 mg/dL (74-106); Protein, Total 7.5 g/dL (6.4-8.2); Sodium Level 137 mmol/L (136-145)
[2022-01-06 06:58] LABS: Potassium 3.7 mmol/L (3.5-5.1)
[2022-01-06 06:59] LABS: AST/SGOT 21 U/L (15-37)
[2022-01-06] MEDS: INSULIN -REGULAR HUMAN 50 UNIT/0.5 ML ML SQ SCH ×3 (07:30→16:30)
[2022-01-06] MEDS: JUVEN PACKET PO SCH (09:00)
[2022-01-06] MEDS: Levofloxacin 750mg IV 750 MG/150 ML BAG IV SCH (09:37)
[2022-01-06] MEDS: FUROSEMIDE 40 MG/4 ML VIAL IV SCH (09:38)
[2022-01-06] MEDS: ENOXAPARIN 40 MG/0.4 ML SQ SCH (09:38)
[2022-01-06] MEDS: AMOXICILLIN TRIHYDR 250 MG CAP PO SCH (09:39)
[2022-01-06] MEDS: METFORMIN HCL 500 MG TAB PO SCH (09:39)
[2022-01-06] MEDS: FAMOTIDINE 20 MG/2 ML VIAL IV SCH (09:39)
[2022-01-06] MEDS: SILVER SULFADIAZINE 1% 25 GM TOP SCH (09:44)
[2022-01-06] MEDS: MORPHINE 2 MG/ML SYR IV PRN (11:59)
--- NOTE | 2022-01-06 14:21 | P.DS ---
Admission Date: 01/01/22 Discharge Date: 01/06/22 Primary Care Provider: Mikey Patel Disposition: ROUTINE DISCHARGE Discharge Condition: GOOD Reason for Admission: cellulitis of the left leg, chf exacerbation - Problems (1) Peripheral vascular disease Current Visit: Yes Status: Chronic (2) Cellulitis Onset Date: 06/06/15 Current Visit: No Status: Acute Qualifiers: Site of cellulitis of extremity: lower extremity Laterality: left (3) HTN (hypertension) Current Visit: Yes Status: Acute Qualifiers: Hypertension type: primary hypertension Qualified Code(s): I10 - Essential (primary) hypertension (4) Hyperlipidemia associated with type 2 diabetes mellitus Current Visit: Yes Status: Chronic (5) Diabetes mellitus type II, non insulin dependent Onset Date: 06/06/15 Current Visit: No Status: Acute (6) Elephantiasis (nonfilarial) Current Visit: Yes Status: Chronic Brief History of Present Illness: Patient is a pleasant Yakut speaking patient who came to the office yesterday He has a 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 The patient also has diabetes htn and hyperlipidemia. The patient has not been taking his medications for about a year. He has been sleeping in a recliner for several years now. Which is sign of sleep apnea. He has recently had swelling pain and foul odor to the left leg. Which prompted him to come into the office. However considering his multiple medical problems the patient was sent to the ER for admission. Hospital Course: Patient presented from the office. He had a mildly elevated a1c of 8.6. He had some debridement done by Dr Claire Ambrose. He has an ef of 65%. 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 Will discharge him today. Plans for follow up with wound care. Will go home with a wound vac. He can see Dr. Ambrose in the Wound care center. Will have him refered to Dr. Woo for his heart. We can refer him to IR for the PVD. Plans to refer for a sleep study. A home sleep study would be effective for the patient. Will have him follow up with me in the office as well. Thank you for allowing me to be a part of his care. Vital Signs/Physical Exam: Temp Pulse Resp BP Pulse Ox 97.1 F 79 16 108/60 95 01/06/22 12:00 01/06/22 12:00 01/06/22 12:00 01/06/22 12:00 01/06/22 12:00 General: Alert, In no apparent distress HEENT: Atraumatic, PERRLA, EOMI Neck: Supple, JVD not distended Respiratory: Clear to auscultation bilaterally, Normal air movement Cardiovascular: Regular rate/rhythm, Normal S1 S2 Gastrointestinal: Normal bowel sounds, No tenderness Musculoskeletal: No tenderness Integumentary: No rashes Neurological: Normal speech, Normal tone, Normal affect Lymphatics: No axilla or inguinal lymphadenopathy Laboratory Data at Discharge: WBC 6.90 K/uL (4.3-10.9) 01/02/22 03:42 Hgb 10.2 g/dL (13.6-17.9) L 01/02/22 03:42 Hct 32.1 % (39.6-49.0) L 01/02/22 03:42 Plt Count 171 K/uL (152-406) 01/02/22 03:42 PT 13.5 SECONDS (9.5-12.5) H 01/01/22 11:40 INR 1.17 01/01/22 11:40 Sodium 137 mmol/L (136-145) 01/06/22 05:55 Potassium 3.7 mmol/L (3.5-5.1) 01/06/22 05:55 BUN 19 mg/dL (7-18) H 01/06/22 05:55 Creatinine 0.80 mg/dL (0.55-1.3) 01/06/22 05:55 Glucose 135 mg/dL (74-106) H 01/06/22 05:55 Magnesium 2.1 mg/dL (1.8-2.4) 01/01/22 11:40 Total Bilirubin 0.8 mg/dL (0.2-1.0) 01/06/22 05:55 AST 21 U/L (15-37) 01/06/22 05:55 ALT 17 U/L (12-78) 01/06/22 05:55 Alkaline Phosphatase 100 U/L (45-117) 01/06/22 05:55 Triglycerides 87 mg/dL (<150) 01/03/22 05:15 Cholesterol 104 mg/dL (<200) 01/03/22 05:15 HDL Cholesterol 37 mg/dL (40-60) L 01/03/22 05:15 Cholesterol/HDL Ratio 2.81 01/03/22 05:15 Home Medications: Amoxicillin [Amoxil Cap*] 500 mg PO TID 7 Days #21 cap 01/06/22 Levofloxacin [Levaquin] 500 mg PO DAILY 7 Days #7 tablet 01/06/22 Metformin HCl [Glucophage*] 500 mg PO BIDWM 90 Days #180 tab 01/06/22 New Medications: Amoxicillin [Amoxil Cap*] 500 mg PO TID 7 Days #21 cap Metformin HCl [Glucophage*] 500 mg PO BIDWM 90 Days #180 tab Levofloxacin [Levaquin] 500 mg PO DAILY 7 Days #7 tablet Diet: ADA Activity: Ad sujatha Followup: Zhou Drake MD [ACTIVE - CAN ADMIT] - 1 Week Shay Ambrose MD [ACTIVE - CAN ADMIT] - 1 Week Physician Review: Patient Assessed, Agree with Above Assessment and Plan Time spent managing pt's care (in minutes): 30
--- NOTE | 2022-01-06 14:21 | PN ---
Subjective: Status post debridement and drainage of an abscess and necrotic wound, left leg lymphede ma. The patient is doing well. No complaint. Wound VAC was started already. Physical Examination: Chest: Clear. Abdomen: Soft and depressible. Extremities: Good capillary refill. Laboratory Data: Blood work shows WBC count of 6.9. Sodium is 137. Plan: From the surgical standpoint whenever medically cleared he can go home with the condition that he will continue with the wound VAC and wound care and we will like to see him in the [facility] in a week from now. He might need home health agency. CAR/EVERARDO Voice ID: [id number] Report ID: [id number]
[2022-01-06] MEDS: NA CHLORIDE 0.9% 1,000 ML IV SCH (15:46)
[2022-01-06 16:15] VITALS: BP 120/60; TEMP 97.5
[2022-01-06 19:28] VITALS: O2SAT 92
== END 2022-01-06 17:33 | disposition home health service (06) | DRG 579 ==
LOC: ER 10:45 → ERHOLD 14:22 → 2ND 15:21
PROVIDERS: ADMIT Internal Medicine; ATTEND Internal Medicine
PROC: 0JBP3ZZ Excision of Left Lower Leg Subcutaneous Tissue and Fascia, Percutaneous Approach (ICD-10-PCS; principal; 2022-01-02 10:15)
DX: L03.116 Cellulitis of left lower limb (principal); I50.21 Acute systolic (congestive) heart failure; N39.0 Urinary tract infection, site not specified; Z68.43 Body mass index [BMI] 50.0-59.9, adult; E11.9 Type 2 diabetes mellitus without complications; L02.416 Cutaneous abscess of left lower limb; E78.5 Hyperlipidemia, unspecified; I89.0 Lymphedema, not elsewhere classified; I11.0 Hypertensive heart disease with heart failure; L89.212 Pressure ulcer of right hip, stage 2; L89.322 Pressure ulcer of left buttock, stage 2; I73.9 Peripheral vascular disease, unspecified; B95.1 Streptococcus, group B, as the cause of diseases classified elsewhere; E66.01 Morbid (severe) obesity due to excess calories; G47.33 Obstructive sleep apnea (adult) (pediatric); Z87.891 Personal history of nicotine dependence; Z89.611 Acquired absence of right leg above knee; Z20.822 Contact with and (suspected) exposure to COVID-19
CPT/HCPCS: 36415; 71045; 80048; 80053; 80061; 80076; 80202; 81003; 82565; 82947; 83036; 83605; 83735; 83880; 84145; 84443; 84484; 85025; 85610; 87040; 87070; 87075; 87077; 87086; 87088; 87186; 87205; 87324; 87449; 88304; 90471; 90714; 93005; 93306; 93926; 93971; 96361; 96365; 97110; 97161; 97530; 99251; 99285; J0330; J1650; J1940; J2270; J2370; J2405; J2543; J2704; J3010; J3370; J7030; J7040; U0003

== ENCOUNTER 2022-01-08 17:52 | Emergency (ER) | payer OTHER ==
--- OUTSIDE RECORDS SUMMARY | 2022-01-08 17:56 | XMS REPORT | Continuity of Care Document ---
:1965 Author Organization [facility] t Address [address] [place] [address] Care Team Providers Name Role Phone Paddy Chapin MD Primary Care Physician Paddy Chapin MD Attending Clinician PADDY CHAPIN Attending Clinician Unavailable ANENE Attending Clinician Unavailable Manuel HERNANDEZ Attending Clinician Unavailable Alexi PENALOZA, Aquiles Attending Clinician Unavailable Manuel Hernandez MD Attending Clinician Amada Castillo PT Attending Clinician Unavailable Doctor Unassigned, Name Attending Clinician Unavailable Payers Payer Name Policy Type Policy Number Effective Date Expiration Date S anmol MEDICARE PART A [id number] 2017 \T\ B 00:00:00 Problems Condition Condition Condition Status Onset Resolution Last Treating Co mments Source Name Details Category Date Date Treatment Clinician Date Chronic Chronic Disease Active 2019-10 Univers edema edema 1-12 ity of 00:00: [address] Hx of AKA Hx of AKA [...] of S [facility] Social History Social Habit Start Date Stop Date Quantity Comments Source Alcohol intake 2020-06-25 2020-06-25 Ex-drinker University 00:00:00 00:00:00 (finding) [facility] Tobacco use and 2019-11-25 2019-11-25 Never used Universit y of exposure 00:00:00 00:00:00 [facility] Sex [birth year] Universit y of 00:00:00 00:00:00 [facility] Smoking Status Start Date Stop Date Source Unknown if ever smoked Universit y of [facility] Never smoker [facility] Medications Ordered Filled Start Stop Current Ordering Indication Dosage Frequency Signature Comments Components Source Medication Medication Date Date Medication? Clinician (SIG) Name Name GLIPIZIDE 2020-10 Yes [id number] TAKE ONE Univers 10 mg 0-26 TABLET BY ity of tablet 00:00: [facility] DAILY Medical Branch GLIPIZIDE 2020-10 Yes [id number] TAKE ONE Univers 10 mg 0-26 TABLET BY ity of tablet 00:00: [facility] DAILY Medical Branch GLIPIZIDE 2020-10 Yes [id number] TAKE ONE Univers 10 mg 0-26 TABLET BY ity of tablet 00:00: [facility] DAILY Medical Branch GLIPIZIDE 2020-10 Yes [id number] TAKE ONE Univers 10 mg 0-19 TABLET BY ity of tablet 00:00: [facility] DAILY Medical Branch GLIPIZIDE 2020-10- No [id number] TAKE ONE Univers 10 mg 0-19 10-26 TABLET BY ity of tablet 00:00: 00:00 MOUTH [place] 00 :00 DAILY Medical Branch PIOGLITAZON Yes TAKE ONE Un senthil E 30 mg 9-20 TABLET BY ity of tablet 00:00: MOUTH [place] DAILY Medical Branch TRIAMTERENE Yes [id number] TAKE ONE Univers -HYDROCHLOR 9-20 CAPSULE BY it y of OTHIAZIDE 00:00: MOUTH [place] 37.5-25 mg 00 EVERY Medical per capsule MORNING Branc h BUMETANIDE Yes [id number] TAKE ONE Univers 1 mg tablet 9-20 TABLET BY ity of 00:00: MOUTH [place] DAILY Medical Branch PIOGLITAZON Yes TAKE ONE Un senthil E 30 mg 9-20 TABLET BY ity of tablet 00:00: MOUTH [place] DAILY Medical Branch TRIAMTERENE 0 Yes [id number] TAKE ONE Univers -HYDROCHLOR 9-20 CAPSULE BY it y of OTHIAZIDE 00:00: MOUTH [place] 37.5-25 mg 00 EVERY Medical per capsule MORNING Branc h BUMETANIDE Yes [id number] TAKE ONE Univers 1 mg tablet 9-20 TABLET BY ity of 00:00: MOUTH [place] 00 DAILY Medical Branch PIOGLITAZON Yes TAKE ONE Un senthil E 30 mg 9-20 TABLET BY ity of tablet 00:00: MOUTH [place] 00 DAILY Medical Branch TRIAMTERENE Yes [id number] TAKE ONE Univers -HYDROCHLOR 9-20 CAPSULE BY it y of OTHIAZIDE 00:00: MOUTH [place] 37.5-25 mg 00 EVERY Medical per capsule MORNING Bran h BUMETANIDE Yes [id number] TAKE ONE Univers 1 mg tablet 9-20 TABLET BY ity of 00:00: MOUTH [place] 00 DAILY Medical Branch PIOGLITAZON Yes TAKE ONE Un senthil E 30 mg 9-20 TABLET BY ity of tablet 00:00: MOUTH [place] 00 DAILY Medical Branch TRIAMTERENE Yes [id number] TAKE ONE Univers -HYDROCHLOR 9-20 CAPSULE BY it y of OTHIAZIDE 00:00: MOUTH [place] 37.5-25 mg 00 EVERY Medical per capsule MORNING Bran h BUMETANIDE Yes [id number] TAKE ONE Univers 1 mg tablet 9-20 TABLET BY ity of 00:00: MOUTH [place] 00 DAILY Medical Branch PIOGLITAZON Yes TAKE ONE Un senthil E 30 mg 9-20 TABLET BY ity of tablet 00:00: MOUTH [place] 00 DAILY Medical Branch TRIAMTERENE Yes [id number] TAKE ONE Univers -HYDROCHLOR 9-20 CAPSULE BY it y of OTHIAZIDE 00:00: MOUTH [place] 37.5-25 mg 00 EVERY Medical per capsule MORNING Bran h BUMETANIDE Yes [id number] TAKE ONE Univers 1 mg tablet 9-20 TABLET BY ity of 00:00: MOUTH [place] 00 DAILY Medical Branch metFORMIN 2020-0 Yes [id number] TAKE ONE Univers 500 mg 8-31 TABLET BY ity of tablet 00:00: MOUTH [place] 00 TWICE A Medical DAY WITH Branch MEALS metFORMIN 2020-0 Yes [id number] TAKE ONE Univers 500 mg 8-31 TABLET BY ity of tablet 00:00: MOUTH [place] 00 TWICE A Medical DAY WITH Branch MEALS metFORMIN 2020-0 Yes [id number] TAKE ONE Univers 500 mg 8-31 TABLET BY ity of tablet 00:00: MOUTH [place] TWICE A Medical DAY WITH Branch MEALS metFORMIN 2020-0 Yes [id number] TAKE ONE Univers 500 mg 8-31 TABLET BY ity of tablet 00:00: MOUTH [place] TWICE A Medical DAY WITH Branch MEALS metFORMIN 2020-0 Yes [id number] TAKE ONE Univers 500 mg 8-31 TABLET BY ity of tablet 00:00: MOUTH [place] TWICE A Medical DAY WITH Branch MEALS metFORMIN 2020-0 Yes [id number] TAKE ONE Univers 500 mg 8-31 TABLET BY ity of tablet 00:00: MOUTH [place] TWICE A Medical DAY WITH Branch MEALS ATORVASTATI 0 Yes TAKE ONE Un senthil N 40 mg 8-19 TABLET BY ity of tablet 00:00: MOUTH AT [place] BEDTIME Medical Branch ATORVASTATI 2020-0 Yes TAKE ONE Un senthil N 40 mg 8-19 TABLET BY ity of tablet 00:00: [facility] [place] [facility] ATORVA[facility] 2020-0 Yes TAKE ONE Un senthil N 40 mg 8-19 TABLET BY ity of tablet 00:00: [facility]TH AT [place] [facility] ATORVASTATI 2020-0 Yes TAKE ONE Un senthil N 40 mg 8-19 TABLET BY ity of tablet 00:00: M[facility]TH AT [place] [facility] ATORVASTATI 2020-0 Yes TAKE ONE Un senthil N 40 mg 8-19 TABLET BY ity of tablet 00:00: M[facility]TH AT [place] [facility] ATORVASTATI 2020-0 Yes TAKE ONE Un senthil N 40 mg 8-19 TABLET BY ity of tablet 00:00: MOUTH AT [place] [facility] Branch GLIPIZIDE 2020-0 Yes [id number] TAKE ONE Univers 10 mg 8-16 TABLET BY ity of tablet 00:00: MOUTH [place] DAILY Medical Branch GLIPIZIDE 2020-0 Yes [id number] TAKE ONE Univers 10 mg 8-16 TABLET BY ity of tablet 00:00: MOUTH [place] 00 DAILY Medical Branch GLIPIZIDE 2020-0 2021- No [id number] TAKE ONE Univers 10 mg 8-16 10-19 TABLET BY ity of tablet 00:00: 00:00 MOUTH [place] 00 :00 DAILY Medical Branch BUMETANIDE 2020-0 Yes [id number] TAKE ONE Univers 1 mg tablet 7-27 TABLET BY ity of 00:00: MOUTH DAILY Medical Branch TRIAMTERENE 2020-0 Yes [id number] TAKE ONE Univers -HYDROCHLOR 7-27 CAPSULE BY it y of OTHIAZIDE 00:00: MOUTH [place] 37.5-25 mg 00 EVERY Medical per capsule MORNING Branc h BUMETANIDE 2020-0 2020- No [id number] TAKE ONE Univers 1 mg tablet 7-27 09-20 TABLET BY it y of 00:00: 00:00 MOUTH [place] 00 :00 DAILY Medical Branch TRIAMTERENE 2020-0 202- No [id number] TAKE ONE Univers -HYDROCHLOR 7-27 09-20 CAPSULE BY i ty of OTHIAZIDE 00:00: 00:00 MOUTH [place] 37.5-25 mg 00 :00 EVERY Medical per capsule MORNING Branc h KCL 10 mEq 2020-0 Yes [id number] TAKE ONE Univers tablet 7-21 TABLET BY ity of 00:00: MOUTH DAILY Medical Branch KCL 10 mEq 2020-0 Yes [id number] TAKE ONE Univers tablet 7-21 TABLET BY ity of 00:00: MOUTH DAILY Medical Branch KCL 10 mEq 2020-0 Yes [id number] TAKE ONE Univers tablet 7-21 TABLET BY ity of 00:00: MOUTH DAILY Medical Branch KCL 10 mEq 2020-0 Yes [id number] TAKE ONE Univers tablet 7-21 TABLET BY ity of 00:00: MOUTH DAILY Medical Branch KCL 10 mEq 2020-0 Yes [id number] TAKE ONE Univers tablet 7-21 TABLET BY ity of 00:00: MOUTH DAILY Medical Branch KCL 10 mEq 2020-0 Yes [id number] TAKE ONE Univers tablet 7-21 TABLET BY ity of 00:00: MOUTH DAILY Medical Branch metFORMIN 2020-0 2020- No [id number] TAKE ONE Univers 500 mg 6-21 - TABLET BY ity of tablet 00:00: 00:00 MOUTH [place] 00 :00 TWICE A Medical DAY WITH Branch MEALS PIOGLITAZON 2020-0 Yes TAKE ONE Un senthil E 30 mg 6-16 TABLET BY ity of tablet 00:00: MOUTH [place] DAILY Medical Branch PIOGLITAZON 2020-0 1- No TAKE ONE U nivers E 30 mg 6-16 -20 TABLET BY ity of tablet 00:00: 00:00 MOUTH [place] 00 :00 DAILY Medical Branch exenatide 2020-0 Yes [id number] 2mg inject Un senthil microsphere 4-21 0.65 mL ity o f s 00:00: under the [place] (BYDUREON) 00 skin Medical 2 mg/0.65 weekly. Branch mL injection exenatide 2020-0 Yes [id number] 2mg inject Un senthil microsphere 4-21 0.65 mL ity o f s 00:00: under the [place] (BYDUREON) 00 skin Medical 2 mg/0.65 weekly. Branch mL injection exenatide 2020-0 Yes [id number] 2mg inject Un senthil microsphere 4-21 0.65 mL ity o f s 00:00: under the [place] (BYDUREON) 00 skin Medical 2 mg/0.65 weekly. Branch mL injection exenatide 2020-0 Yes [id number] 2mg inject Un senthil microsphere 4-21 0.65 mL ity o f s 00:00: under the [place] (BYDUREON) 00 skin Medical 2 mg/0.65 weekly. Branch mL injection exenatide 2020-0 Yes [id number] 2mg inject Un senthil microsphere 4-21 0.65 mL ity o f s 00:00: under the [place] (BYDUREON) 00 skin Medical 2 mg/0.65 weekly. Branch mL injection exenatide 2020-0 Yes [id number] 2mg inject Un senthil microsphere 4-21 0.65 mL ity o f s 00:00: under the [place] (BYDUREON) 00 skin Medical 2 mg/0.65 weekly. Branch mL injection traMADoL 50 2020-0 Yes [id number] 50mg Take 1 Univ ers mg tablet 3-19 tablet by ity o f 00:00: mouth [place] 00 every 6 Medical (six) Branch hours as needed for Pain (scale 4-6). Indication s: acute pain exenatide 2020-0 Yes [id number] 2mg inject 2 Univers microsphere 3-19 mg [...] Indication s: acute pain exenatide 2020-0 Yes [id number] 2mg inject 2 Univers microsphere 3-19 mg [...] Indication s: acute pain exenatide 2020-0 Yes [id number] 2mg inject 2 Univers microsphere 3-19 mg [...] Indication s: acute pain exenatide 2020-0 Yes [id number] 2mg inject 2 Univers microsphere 3-19 mg [...] Indication s: acute pain exenatide 2020-0 Yes [id number] 2mg inject 2 Univers microsphere 3-19 mg [...] Indication s: acute pain exenatide 2020-0 Yes [id number] 2mg inject 2 Univers microsphere 3-19 mg under ity of s 2 mg 00:00: the skin [place] injection 00 every 7 Medical (seven) Branch days. traMADol 50 2020-0 Yes [id number] 50mg Take 1 Univers mg tablet 2-26 [id number] tablet by ity of 00:00: mouth [place] 00 every 6 Medical (six) Branch hours as needed (pain). exenatide 2020-0 Yes [id number] 2mg inject 2 Univers microsphere 2-26 mg under ity of s 2 mg 00:00: the skin [place] injection 00 every 7 Medical (seven) Branch days. metFORMIN 2020-0 Yes 500mg Take 500 Uni vers 500 mg 1-31 mg by ity of tablet 20:46: mouth 2 [place] [address] ([facility]) Medical times Ward daily with meals. atorvastati 2020-0 Yes 40mg Take 40 mg Univers n 40 mg 1-31 by mouth ity of tablet 20:46: at [place] [address] bedtime. Medical Branch pioglitazon 2020-0 Yes 30mg Take 30 mg Univers e 30 mg 1-31 by mouth ity of tablet 20:46: daily. [address] glipiZIDE 2020-0 Yes 10mg Take 10 mg Un senthil 10 mg 1-31 by mouth ity of tablet 20:46: daily. [place] [address] Medical Ward metFORMIN 2020-0 Yes 500mg Take 500 Uni vers 500 mg 1-31 mg by ity of tablet 20:46: mouth 2 [place] [address] ([facility]) Medical times Ward daily with meals. atorvastati 2020-0 Yes 40mg Take 40 mg Univers n 40 mg 1-31 by mouth ity of tablet 20:46: at [place] [address] bedtime. Medical Branch pioglitazon 2020-0 Yes 30mg Take 30 mg Univers e 30 mg 1-31 by mouth ity of tablet 20:46: daily. [address] glipiZIDE 2020-0 Yes 10mg Take 10 mg Un senthil 10 mg 1-31 by mouth ity of tablet 20:46: daily. [place] [address] Medical Ward metFORMIN 2020-0 Yes 500mg Take 500 Uni vers 500 mg 1-31 mg by ity of tablet 20:46: mouth 2 [place] [address] ([facility]) Medical times Ward daily with meals. atorvastati 2020-0 Yes 40mg Take 40 mg Univers n 40 mg 1-31 by mouth ity of tablet 20:46: at [place] [address] bedtime. Medical Branch pioglitazon 2020-0 Yes 30mg Take 30 mg Univers e 30 mg 1-31 by mouth ity of tablet 20:46: daily. [address] glipiZIDE 2020-0 Yes 10mg Take 10 mg Un senthil 10 mg 1-31 by mouth ity of tablet 20:46: daily. [address] metFORMIN 2020-0 Yes 500mg Take 500 Uni vers 500 mg 1-31 mg by ity of tablet 20:46: mouth 2 [place] [address] ([facility]) [facility] times Ward daily with meals. atorvastati 2020-0 Yes 40mg Take 40 mg Univers n 40 mg 1-31 by mouth ity of tablet 20:46: at [place] [address] bedtime. Medical Branch pioglitazon 2020-0 Yes 30mg Take 30 mg Univers e 30 mg 1-31 by mouth ity of tablet 20:46: daily. [address] glipiZIDE 2020-0 Yes 10mg Take 10 mg Un senthil 10 mg 1-31 by mouth ity of tablet 20:46: daily. [address] metFORMIN 2020-0 Yes 500mg Take 500 Uni vers 500 mg 1-31 mg by ity of tablet 20:46: mouth 2 [place] [address] ([facility]) [facility] daily with meals. atorvastati 2020-0 Yes 40mg Take 40 mg Univers n 40 mg 1-31 by mouth ity of tablet 20:46: at [place] [address] bedtime. Medical Branch pioglitazon 2020-0 Yes 30mg Take 30 mg Univers e 30 mg 1-31 by mouth ity of tablet 20:46: daily. [address] glipiZIDE 2020-0 Yes 10mg Take 10 mg Un senthil 10 mg 1-31 by mouth ity of tablet 20:46: daily. [address] metFORMIN 2020-0 Yes 500mg Take 500 Uni vers 500 mg 1-31 mg by ity of tablet 20:46: mouth 2 [place] [address] ([facility] daily with meals. atorvastati 2020-0 Yes 40mg Take 40 mg Univers n 40 mg 1-31 by mouth ity of tablet 20:46: at [place] [address] bedtime. Medical Branch pioglitazon 2020-0 Yes 30mg Take 30 mg Univers e 30 mg 1-31 by mouth ity of tablet 20:46: daily. [address] glipiZIDE 2020-0 Yes 10mg Take 10 mg Un senthil 10 mg 1-31 by mouth ity of tablet 20:46: daily. [place] 55 Medical Branch metFORMIN 2020-0 Yes 500mg Take 500 Uni vers 500 mg 1-31 mg by ity of tablet 20:46: mouth 2 [place] [address] (two) Medical times Branch daily with meals. atorvastati 2020-0 Yes 40mg Take 40 mg Univers n 40 mg 1-31 by mouth ity of tablet 20:46: at [place] [address] bedtime. Medical Branch pioglitazon 2020-0 Yes 30mg Take 30 mg Univers e 30 mg 1-31 by mouth ity of tablet 20:46: daily. [place] [address] Medical Branch glipiZIDE 2020-0 Yes 10mg Take 10 mg Un senthil 10 mg 1-31 by mouth ity of tablet 20:46: daily. [place] [address] Medical Branch amoxicillin 2020-0 Yes [id number] 1{tbl} Take 1 Univers -clavulanat 1- [id number] tablet by i ty of e 00:00: mouth 2 [place] (AUGMENTIN) 00 (two) Medical 875-125 mg times Branch per tablet daily. sulfamethox 2020-0 Yes [id number] 1{tbl} Take 1 Univers azole-trime 1- [id number] tablet by i ty of thoprim 00:00: mouth 2 [place] 800-160 mg 00 (two) Medical per tablet times Branch daily. traMADol 50 2020-0 Yes [id number] 50mg Take 1 Univers mg tablet - [id number] tablet by ity of 00:00: mouth [place] 00 every 6 Medical (six) Branch hours as needed (pain). amoxicillin 2020-0 Yes [id number] 1{tbl} Take 1 Univers -clavulanat 1- [id number] tablet by i ty of e 00:00: mouth 2 [place] (AUGMENTIN) 00 (two) Medical 875-125 mg times Branch per tablet daily. sulfamethox 2020-0 Yes [id number] 1{tbl} Take 1 Univers azole-trime 1-31 [id number] tablet by i ty of thoprim 00:00: mouth 2 [place] 800-160 mg 00 (two) Medical per tablet times Branch daily. traMADol 50 2020-0 Yes [id number] 50mg Take 1 Univers mg tablet 1-31 [id number] tablet by ity of 00:00: mouth [place] 00 every 6 Medical (six) Branch hours as needed (pain). amoxicillin 2020-0 Yes [id number] 1{tbl} Take 1 Univers -clavulanat 1-31 [id number] tablet by i ty of e 00:00: mouth 2 [place] (AUGMENTIN) 00 (two) Medical 875-125 mg times Branch per tablet daily. sulfamethox 2020-0 Yes [id number] 1{tbl} Take 1 Univers azole-trime 1-31 [id number] tablet by i ty of thoprim 00:00: mouth 2 [place] 800-160 mg 00 (two) Medical per tablet times Branch daily. traMADol 50 2020-0 Yes [id number] 50mg Take 1 Univers mg tablet 1-31 [id number] tablet by ity of 00:00: mouth [place] 00 every 6 Medical (six) Branch hours as needed (pain). amoxicillin 2020-0 Yes [id number] 1{tbl} Take 1 Univers -clavulanat 1-31 [id number] tablet by i ty of e 00:00: mouth 2 [place] (AUGMENTIN) 00 (two) Medical 875-125 mg times Branch per tablet daily. sulfamethox 2020-0 Yes [id number] 1{tbl} Take 1 Univers azole-trime 1-31 [id number] tablet by i ty of thoprim 00:00: mouth 2 [place] 800-160 mg 00 (two) Medical per tablet times Branch daily. traMADol 50 2020-0 Yes [id number] 50mg Take 1 Univers mg tablet 1- 883612 tablet by ity of 00:00: mouth [place] 00 every 6 Medical (six) Branch hours as needed (pain). amoxicillin 2020-0 Yes [id number] 1{tbl} Take 1 Univers -clavulanat 1-31 [id number] tablet by i ty of e 00:00: mouth 2 [place] (AUGMENTIN) 00 (two) Medical 875-125 mg times Branch per tablet daily. sulfamethox 2020-0 Yes [id number] 1{tbl} Take 1 Univers azole-trime 1-31 [id number] tablet by i ty of thoprim 00:00: mouth 2 [place] 800-160 mg 00 (two) Medical per tablet times Branch daily. traMADol 50 2020-0 Yes [id number] 50mg Take 1 Univers mg tablet 1-31 [id number] tablet by ity of 00:00: mouth [place] 00 every 6 Medical (six) Branch hours as needed (pain). amoxicillin 2020-0 Yes [id number] 1{tbl} Take 1 Univers -clavulanat 1-31 [id number] tablet by i ty of e 00:00: mouth 2 [place] (AUGMENTIN) 00 (two) Medical 875-125 mg times Branch per tablet daily. sulfamethox 2019-0 Yes [id number] 1{tbl} Take 1 Univers azole-trime 11-25 [id number] tablet by i ty of thoprim 00:00: mouth 2 [place] 800-160 mg 00 (two) Medical per tablet times Branch daily. traMADol 50 2019-0 Yes [id number] 50mg Take 1 Univers mg tablet 11-25 [id number] tablet by ity of 00:00: mouth [place] 00 every 6 Medical (six) Branch hours as needed (pain). amoxicillin 2020- No [id number] 1{tbl} Take 1 Univers -clavulanat 11-25 [id number] tablet by ity of e 00:00: 00:00 mouth 2 [place] (AUGMENTIN) 00 :00 (two) Medical 875-125 mg times Branch per tablet daily. sulfamethox 2020- No [id number] 1{tbl} Take 1 Univers azole-trime 11-25 [id number] tablet by ity of thoprim 00:00: 00:00 mouth 2 [place] 800-160 mg 00 :00 (two) Medical per tablet times Branch daily. traMADol 50 2020- No [id number] 50mg Take 1 Univers mg tablet 11-25 [id number] tablet by it y of 00:00: 00:00 mouth [place] 00 :00 every 6 Medical (six) Branch hours as needed (pain). No known No Univers medications [place] [facility] Vital Signs Vital Name Observation Time Observation Value Comments Source Systolic blood 2019-12-21 17:49:00 110 mm[Hg] [facility]iver [facility] Diastolic blood 2019-12-21 17:49:00 41 mm[Hg] [facility] Heart rate 2019-12-21 17:49:00 79 /min Universi [facility] Body temperature 2019-12-21 17:49:00 36.78 Yesenia [facility] Respiratory rate 2019-12-21 17:49:00 18 /min [facility] Procedures Procedure Date / Time Performing Clinician Source Performed PATIENT QUESTIONNAIRE 2019-11-22 06:01:00 Doctor Unassigned, No [facility] Name Medical Branch REFERRAL- 2019-11-11 06:01:00 Doctor Unassigned, No [facility] REQUEST/RESPONSE Name Medical Ward Encounters Start End Encounter Admission Attending Care Care Encounter Source Date/Time Date/Time Type Type Clinicians Facility Department ID 2021-08-23 Emergency [facility] [id number] Univers 14:59:58 ity [facility] 2019-11-28 [facility] [id number] 08:29:26 2021-11-29 2021-11-29 [facility] [id number] Univers 00:00:00 00:00:00 Logan GUNN [id number] i ty [facility] [id number] [phone] [address] 2021-09-12 2021-09-12 [facility] [id number] Univers 00:00:00 00:00:00 [place] GUNN [id number] i ty of yoselin [place] [id number] [place] PROFESS[place] [id number] [address] 2021-08-19 2021-08-19 [facility] [id number] Univers 00:00:00 00:00:00 Logan Gunn [id number] i ty of yoselin [employer] [id number] [address] [phone] [facility] nal [address] [place] [address] 2021-08-13 2021-08-13 [facility] 1.2.840.114 [id number] Univers 00:00:00 00:00:00 Logan [place] [id number] i ty of [place] [id number] [place] Profess[place] [phone] [address] 2021-07-13 2021-07-13 [facility] [id number] Univers 00:00:00 00:00:00 [place] [id number] i ty of Paddy [place] [id number] [place] Profess[place] [phone] Md jodi michael 044 [facility] 2021-06-24 2021-06-24 [facility] 1.2.840.114 [id number] Univers 00:00:00 00:00:00 [facility] [id number] it y of Paddy [place] [id number] Geo as Jak?Blea [phone] Md jodi yadav [address] [place] [address] Medical Office [facility] 2020-09-05 2020-09-05 Outpatient [facility] [id number] Univers 14:00:00 14:00:00 LOGAN [id number] [facility] 2020-09-05 2020-09-05 Outpatient [facility]le[facility] [id number] Univers 10:15:00 10:15:00 LOGAN [facility] 2020-06-25 2020-06-25 Outpatient [facility] [id number] Univers 11:40:00 11:40:00 [id number] [facility] 2020-06-25 2020-06-25 [facility] [id number] Univers 11:40:00 11:40:00 KATE [facility] 2020-06-06 2020-06-06 Outpatient Arleth CHAPIN [facility] [id number] Univers 15:45:00 15:45:00 LOGAN [facility] 2020-06-06 2020-06-06 Outpatient Arleth CHAPIN [facility] [id number] Univers 13:45:00 13:45:00 LOGAN [id number] [facility] 2020-05-09 2020-05-09 Outpatient Arleth CHAPIN [facility] [id number] Univers 16:15:00 16:15:00 LOGAN [id number] [facility] 2020-05-09 2020-05-09 Outpatient Arleth CHAPIN [facility] [id number] Univers 16:15:00 16:15:00 LOGAN [facility] 2020-03-20 2020-03-20 Outpatient R NATALIO [facility] [id number] Univers 09:15:00 09:15:00 LOGAN [id number] ity of [facility] 2020-03-20 2020-03-20 Outpatient R NATALIO [facility] [id number] Univers 09:15:00 09:15:00 LOGAN ity of [facility] 2020-02-29 2020-02-29 Outpatient [facility] [id number] Univers 11:20:00 11:20:00 ity of [facility] 2020-02-27 2020-02-27 Outpatient R [facility] [id number] Univers 11:20:00 11:20:00 ity of [facility] 2020-02-22 2020-02-22 Outpatient [facility] [id number] Univers 11:00:00 11:00:00 [id number] ity of [facility] 2020-02-20 2020-02-20 Outpatient R [facility] [id number] Univers 10:40:00 10:40:00 [id number] ity of [facility] 2020-02-15 2020-02-15 Outpatient [facility] [id number] Univers 11:20:00 11:20:00 [id number] ity of [facility] 2020-02-13 2020-02-13 Outpatient R [facility] [id number] Univers 11:00:00 11:00:00 [id number] ity of [facility] 2020-02-08 2020-02-08 Outpatient [facility] [id number] Univers 11:00:00 11:00:00 [id number] ity of [facility] 2020-02-06 2020-02-06 Outpatient R [facility] [id number] Univers 11:00:00 11:00:00 [id number] ity of [facility] 2020-02-01 2020-02-01 Outpatient [facility] [id number] Univers 11:00:00 11:00:00 [id number] ity of [facility] 2020-01-30 2020-01-30 Outpatient R [facility] [id number] Univers 11:00:00 11:00:00 ity of [facility] 2020-01-25 2020-01-25 Outpatient [facility] [id number] Univers 11:00:00 11:00:00 ity of [facility] 2020-01-25 2020-01-25 Outpatient R RENEE, [facility] [id number] Univers 11:00:00 11:00:00 JULISA ity of [facility] 2020-01-23 2020-01-23 Outpatient R [facility] [id number] Univers 10:00:00 10:00:00 [id number] ity of [facility] 2020-01-19 2020-01-19 Outpatient [facility] [id number] Univers 10:00:00 10:00:00 [id number] ity of [facility] 2020-01-18 2020-01-18 Outpatient R [facility] [id number] Univers 11:00:00 11:00:00 [id number] ity of [facility] 2020-01-17 2020-01-17 Outpatient R [facility] [id number] Univers 11:00:00 11:00:00 [id number] ity of [facility] 2020-01-16 2020-01-16 Outpatient R [facility] [id number] Univers 14:00:00 14:00:00 [id number] ity of [facility] 2020-01-12 2020-01-12 Outpatient [facility] [id number] Univers 15:00:00 15:00:00 [id number] ity of [facility] 2020-01-10 2020-01-10 Outpatient R [facility] [id number] Univers 15:40:00 15:40:00 [id number] ity of [facility] 2020-01-06 2020-01-06 Outpatient R [facility] [id number] Univers 13:40:00 13:40:00 [id number] ity of [facility] 2020-01-03 2020-01-03 Outpatient [facility] [id number] Univers 14:40:00 14:40:00 ity of [facility] 2019-12-29 2019-12-29 Outpatient [facility] [id number] Univers 09:20:00 09:20:00 [id number] ity of [facility] 2019-12-29 2019-12-29 Outpatient R RENEE, [facility] [id number] Univers 09:20:00 09:20:00 JULISA ity of [facility] 2019-12-27 2019-12-27 Outpatient [facility] [id number] Univers 09:00:00 09:00:00 [id number] ity of [facility] 2019-12-21 2019-12-21 Office Natalio [facility] 1.2.840.114 [id number] Univers 11:42:25 11:57:25 Visit [facility] [id number] it y of [place] [id number] [place] [phone] Md dical [facility] [address] 2019-12-21 2019-12-21 Outpatient R [facility] [id number] Univers 11:30:00 11:30:00 LOGAN [id number] jose davidy of [facility] 2019-12-21 2019-12-21 Outpatient R [facility] [id number] Univers 11:30:00 11:30:00 LOGAN [facility] 2019-12-20 2019-12-20 Outpatient R [facility] [id number] Univers 09:00:00 09:00:00 ity of [facility] 2019-12-16 2019-12-16 Ancillary Veronica Truong [facility] 1.2.840 .114 [id number] Univers 10:07:00 11:07:00 Visit Julisa Hernandez [id number] [id number] [phone] Md dical nal [address] [facility] 2019-12-14 2019-12-14 Ancillary Veronica Truong [facility] 1.2.840 .114 [id number] Univers 09:52:14 10:52:14 Visit Julisa Hernandez [id number] ity of [employer] [id number] [phone] Md dical nal [address] [facility] 2019-12-09 2019-12-09 Ancillary Veronica Truong [facility] 1.2.840 .114 [id number] Univers 08:52:58 10:16:26 Visit Julisa Hernandez [place] [id number] ity of [employer] [id number] [phone] Md dical nal [address] 2019-12-07 2019-12-07 Ancillary Veronica Truong [facility] 1.2.840 .114 [id number] [facility] 08:58:57 09:58:57 Visit Hernandez Julisa [place] [id number] ity of [employer] [id number] [phone] Md dical nal [address] 2019-12-02 2019-12-02 Ancillary Veronica Truong [facility] 1.2.840 .114 [id number] [facility] 08:47:35 09:47:35 Visit Hernandez Julisa Gunn [id number] ity of [employer] [id number] [phone] Md dical nal [address] 2019-11-18 2019-11-30 Ancillary Nicolasa Castillo Amada [facility] 1.2.840. 114 [id number] [facility] 09:11:00 12:53:31 Visit Julisa Hernandez [id number] ity of [employer] [id number] [phone] Md dical nal [address] 2019-11-30 2019-11-30 Ancillary Veronica Truong [facility] 1.2.840 .114 [id number] [facility] 08:42:50 09:42:50 Visit Julisa Hernandez [id number] ity of [employer] [id number] [phone] Md dical nal [address] 2019-11-24 2019-11-24 Ancillary Veronica Truong [facility] 1.2.840 .114 [id number] [facility] 08:48:05 15:06:52 Visit Julisa Hernandez [id number] ity of [employer] [id number] [phone] Md dical nal [address] 2019-11-22 2019-11-22 Ancillary Veronica Truong [facility] 1.2.840 .114 [id number] Univers 08:37:05 11:36:52 Visit Julisa Hernandez [id number] ity of [employer] [id number] [phone] Md dical nal [address] [facility] 2019-11-22 2019-11-22 Orders Doctor LIYA 1.2.840.114 [id number] Univers 00:00:00 00:00:00 Only Unassigned, DANIELA [id number] ity of [facility] [id number] [place] as [phone] [address] 2019-11-11 2019-11-11 Orders Doctor LIYA 1.2.840.114 [id number] Univers 00:00:00 00:00:00 Only Unassigned, DANIELA [id number] ity of [facility] [id number] [place] as [phone] [address] 2019-10-30 2019-10-30 Inpatient E [facility] [id number] [facility] 03:07:00 15:15:00 Results This patient has no known results.
[2022-01-08] MEDS ORDERED: HYDROCODONE/APAP 10/325 TAB ONE ×2 (18:18→20:30)
--- NOTE | 2022-01-08 18:55 | ER ---
Nurse's Notes [facility] Name: Tej Fragoso Age: 56 yrs Sex: Male : 1965 Arrival Date: 01/08/2022 Time: 17:58 Bed 26 Private MD: Diagnosis: Encounter for attention to dressings, sutures and drains;Leg Laceration/ Open wound of lower leg-left Presentation: 01/08 18:27 Chief complaint: EMS states: Per EMS, home health nurse came to place wound vac to E 7 and after removing wet to dry dressing she was unable to stop the bleeding. Coronavirus screen: Vaccine status: Patient reports being unvaccinated. Ebola Screen: No symptoms or risks identified at this time. Initial Sepsis Screen: Does the patient meet any 2 criteria? No. Patient's initial sepsis screen is negative. Does the patient have a suspected source of infection? No. Patient's initial sepsis screen is negative. Risk Assessment: Do you want to hurt yourself or someone else? Patient reports no desire to harm self or others. Onset of symptoms was January 08, 2022. 18:27 Method Of Arrival: EMS 7 18:27 Acuity: DAVID 3 ss7 Triage Assessment: 18:28 General: Appears in no apparent distress. Behavior is calm, cooperative, appropriate ss7 for age. Pain: Complains of pain in left leg. EENT: No deficits noted. Cardiovascular: Heart tones S1 S2. Respiratory: Breath sounds are clear bilaterally. GI: No deficits noted. : No deficits noted. Derm: Skin open wound to posterior aspect of LLE Skin is Skin is Skin temperature is warm Wound noted left leg. Musculoskeletal: Amputation of right leg. Historical: - Allergies: 18:28 No Known Allergies; ss7 - Home Meds: 18:28 Metformin Oral [Active]; ss7 - Immunization history:: Adult Immunizations Client reports having NOT received the Covid vaccine. Flu vaccine is not up to date. - Social history:: Smoking status: Patient denies any tobacco usage or history of. Screenin:31 Abuse screen: Denies threats or abuse. Nutritional screening: No deficits noted. ss7 Tuberculosis screening: No symptoms or risk factors identified. Fall Risk None identified. Assessment: 18:31 Reassessment: see triage. 7 19:20 Reassessment: 1655; Pt discharged. Pt is bedbound and requires EMS home. Charge Nurse ss7 notified. Will dc pending arrival of EMS.. Vital Signs: 18:27 BP 120 / 65; Pulse 80; Resp 18; Temp 98.1; Pulse Ox 96% ; Weight 167.83 kg; Height 6 ss7 ft. 0 in. (182.88 cm); 19:32 BP 109 / 58; Pulse 89; Resp 18; Pulse Ox 97% ; ss7 18:27 Body Mass Index 50.18 (167.83 kg, 182.88 cm) ss7 ED Course: 17:58 Patient arrived in ED. bd 18:01 Venkatesh Perez PA is PHCP. cp 18:01 Ramon Damico DO is Attending Physician. cp 18:09 Marielena Messer, JUANJO is Primary Nurse. ss7 18:28 Triage completed. ss7 18:28 Arm band placed on. Pressure dressing applied. ss7 18:31 Patient has correct armband on for positive identification. Bed in low position. Call ss7 light in reach. Side rails up X2. Adult w/ patient. 18:31 No provider procedures requiring assistance completed. Patient did not have IV access ss7 during this emergency room visit. 18:52 Shay Ambrose MD is Referral Physician. cp Administered Medications: 18:23 Drug: HYDROcodone-acetaminophen 10 mg-325 mg 1 tabs Route: PO; ss7 19:21 Follow up: Response: Pain is decreased ss7 20:29 Drug: HYDROcodone-acetaminophen 10 mg-325 mg 1 tabs Route: PO; ss7 20:31 Follow up: Response: RASS: Alert and Calm (0) ss7 Outcome: 18:54 Discharge ordered by MD. cp 20:31 Discharged to home via ambulance. ss7 20:31 Condition: good 20:31 Discharge instructions given to patient, family, Instructed on discharge instructions, follow up and referral plans. Demonstrated understanding of instructions, follow-up care. 20:31 Patient left the ED. ss7 Signatures: Tiffany Brown bd Venkatesh Perez PA PA cp Marielena Messer, RN RN ss7 Corrections: (The following items were deleted from the chart) 18:29 18:28 PMHx: Diabetes; ss7 ss7 18:29 18:28 PMHx: Hypertension; ss7 ss7 18:29 18:28 PMHx: LYMPH EDEMA; ss7 ss7 18:29 18:28 PSHx: R AKA; ss7 ss7
--- NOTE | 2022-01-08 18:55 | EDPHYS ---
Physician Documentation [facility] Name: Tej Fragoso Age: 56 yrs Sex: Male : 1965 Arrival Date: 01/08/2022 Time: 17:58 Bed 26 Private MD: ED Physician Ramon Damico HPI: 01/08 18:30 This 56 yrs old Male presents to ER via EMS with complaints of Bleeding from cp Right Lower Leg Wound. 18:30 The patient presents with open wound to left lower leg. cp 18:30 Patient is a 56-year-old gentleman with a history of right ulkpm-[id number]-[id number] amputation cp who presents to the emergency department with lymphedema to the left lower extremity, and an open wound to the posterior aspect of the left lower leg. Patient reports home health is attempting to place the wound VAC over the wound when after removing the dressing in place, wound started bleeding uncontrollably. Patient presents with the pressure dressing in place.. Historical: - Allergies: 18:28 No Known Allergies; ss7 - Home Meds: 18:28 Metformin Oral [Active]; ss7 - Immunization history:: Adult Immunizations Client reports having NOT received the Covid vaccine. Flu vaccine is not up to date. - Social history:: Smoking status: Patient denies any tobacco usage or history of. ROS: 18:35 Skin: Positive for of the left lower leg, open wound. cp 18:35 Constitutional: Negative for body aches, chills, fever, poor PO intake. cp 18:35 Cardiovascular: Negative for chest pain. 18:35 Respiratory: Negative for cough, shortness of breath, wheezing. 18:35 Abdomen/GI: Negative for abdominal pain, nausea, vomiting, and diarrhea. 18:35 Neuro: Negative for altered mental status, headache, weakness. 18:35 All other systems are negative. Exam: 18:40 Constitutional: The patient appears in no acute distress, alert, awake, cp non-diaphoretic, non-toxic, well developed, well nourished, obese. 18:40 Head/Face: Normocephalic, atraumatic. cp 18:40 Chest/axilla: Inspection: normal. 18:40 Cardiovascular: Rate: normal, Rhythm: regular. 18:40 Respiratory: the patient does not display signs of respiratory distress, Respirations: normal, no use of accessory muscles, no retractions, labored breathing, is not present. 18:40 Abdomen/GI: Inspection: obese 18:40 Musculoskeletal/extremity: Extremities: noted in the left leg: Marked lymphedema noted to left lower extremity. After removal of of pressure dressing to left lower leg, there is a open wound noted to the posterior aspect of the lower leg with mild bleeding noted. Minimal erythema noted and no purulent drainage noted. Vital Signs: 18:27 BP 120 / 65; Pulse 80; Resp 18; Temp 98.1; Pulse Ox 96% ; Weight 167.83 kg; Height 6 ss7 ft. 0 in. (182.88 cm); 19:32 BP 109 / 58; Pulse 89; Resp 18; Pulse Ox 97% ; ss7 18:27 Body Mass Index 50.18 (167.83 kg, 182.88 cm) ss7 MDM: 18:02 Patient medically screened. cp 18:30 Differential diagnosis: sepsis, anemia, cellulitis. cp 18:32 Physician consultation: Shay Ambrose MD was called at 18:33, was contacted at 18:33, regarding patient's condition, wants wound packed to control bleeding and to f/u in wound care clinic as scheduled. 18:54 Data reviewed: vital signs, nurses notes, I have discussed the patient's cp presentation/case with the attending Emergency Department Physician; and as a result, I will discharge patient. 18:54 ED course: Vital signs stable. Old dressing removed and new packing placed into wound cp and pressure dressing reapplied. Area monitored for any tenuous bleeding from wound, which was not observed. Will discharge to home for continued monitoring. 01/08 18:02 Order name: Wound dressing; Complete Time: 18:55 cp Administered Medications: 18:23 Drug: HYDROcodone-acetaminophen 10 mg-325 mg 1 tabs Route: PO; ss7 19:21 Follow up: Response: Pain is decreased ss7 20:29 Drug: HYDROcodone-acetaminophen 10 mg-325 mg 1 tabs Route: PO; ss7 20:31 Follow up: Response: RASS: Alert and Calm (0) ss7 Disposition: 20:54 Co-signature as Attending Physician, Ramon Damico DO I agree with the assessment and ms3 plan of care. Disposition Summary: 01/08/22 18:54 Discharge Ordered Location: Home cp Problem: new cp Symptoms: have improved cp Condition: Stable cp Diagnosis - Encounter for attention to dressings, sutures and drains cp - Leg Laceration/ Open wound of lower leg - left cp Followup: cp - With: Shay Ambrose MD - When: as scheduled in wound care - Reason: Wound Recheck Discharge Instructions: - Discharge Summary Sheet cp - Uncontrolled Wound Bleeding cp Forms: - Medication Reconciliation Form cp - Thank You Letter cp - Antibiotic Education cp - Prescription Opioid Use cp Signatures: Venkatesh Perez PA PA cp Ramon Damico DO DO ms3 Marielena Messer RN RN ss7 Corrections: (The following items were deleted from the chart) 18:29 18:28 PMHx: Diabetes; 7 7 18:29 18:28 PMHx: Hypertension; 7 7 18:29 18:28 PMHx: LYMPH EDEMA; 7 7 18:29 18:28 PSHx: R AKA; 7 7
[2022-01-08 20:36] VITALS: BP 109/58; TEMP 98.1; O2SAT 97
== END 2022-01-08 20:31 | disposition home or self-care (01) ==
LOC: ER 17:52
DX: S81.801A Unspecified open wound, right lower leg, initial encounter (principal); I89.0 Lymphedema, not elsewhere classified
CPT/HCPCS: 99283

== ENCOUNTER 2022-02-06 11:00 | Day surgery (SDC) | payer OTHER ==
[2022-02-03 10:49] LABS: Absolute Lymphocytes (CBC) 1.5 K/uL (0.7-4.9); Hematocrit 32.2 % (39.6-49.0); Lymphocytes % 21.5 % (15.3-44.8); MPV 10.5 fL (7.6-11.3)
[2022-02-03 10:53] LABS: Protime INR 1.17
[2022-02-03 11:06] LABS: Potassium 3.8 mmol/L (3.5-5.1)
[2022-02-06] MEDS ORDERED: HEPA 1000U/500MLS 2,000 UNIT/1,000 ML BAG IV ONE (11:01)
[2022-02-06] MEDS ORDERED: HEPARIN 5000 UNIT/ML 1 ML VIAL ONE (11:14)
[2022-02-06] MEDS ORDERED: MIDAZOLAM HCL 2 MG/2 ML INJ ONE (11:14)
[2022-02-06] MEDS ORDERED: FENTANYL CITR 100 MCG/2 ML ONE (11:14)
[2022-02-06] MEDS ORDERED: VERAPAMIL HCL 10 MG/4 ML VIAL IV ONE (11:15)
[2022-02-06] MEDS ORDERED: ATROPINE SULF 1 MG/10 ML SYR IV ONE (11:15)
[2022-02-06] MEDS ORDERED: HEPARIN 10,000 UNIT/10 ML VIAL IV ONE (11:15)
[2022-02-06 15:11] VITALS: BP 107/57; O2SAT 93
--- NOTE | 2022-02-07 00:12 | OP ---
Date of Procedure: 02/06/2022 Surgeon: CADE PHAN Reason For Procedure: Suspected severe peripheral vascular disease. Access: Right radial artery 6-Scottish closed with TR band. Complications: None. Bleeding: Less than 10 mL. Description Of Procedure: After risks, benefits, and alternatives were explained, the patient agreed to the procedure and signed informed consent. The patient was brought into the cardiac catheterizat ion laboratory, prepped and draped in sterile fashion. We accessed the right radial artery and place d 6-Scottish slender sheath and took a long pigtail catheter into the distal aorta and did distal aorto gram and runoff and then removed the catheter and the sheath and placed TR band with good hemostasis. Findings: 1.Distal aorta is widely patent. 2.Bilateral iliacs and femoral arteries are all patent. 3.Profunda above both sites are patent. 4.SFA on the left side is widely patent without any disease and same on the right side. 5.Aeaha-inw-ulsf circulation on the left is patent all the way to the foot and he is status post amp utation on the right side. Conclusion: No significant peripheral vascular disease. SR/MODL Voice ID: [id number] Report ID: [id number]
== END 2022-02-06 16:12 | disposition home or self-care (01) ==
LOC: CCL 11:00
PROVIDERS: ATTEND Internal Medicine
DX: I73.9 Peripheral vascular disease, unspecified (principal); I89.0 Lymphedema, not elsewhere classified; E11.9 Type 2 diabetes mellitus without complications; I10 Essential (primary) hypertension; G47.33 Obstructive sleep apnea (adult) (pediatric); E66.01 Morbid (severe) obesity due to excess calories; Z68.43 Body mass index [BMI] 50.0-59.9, adult; Z87.891 Personal history of nicotine dependence; Z20.822 Contact with and (suspected) exposure to COVID-19
CPT/HCPCS: 85025; 80048; 36415; 85610; 82947; 85730; 36200; 75630; 76937; U0002; C1893; J1644 ×2; J2250; J3010

== ENCOUNTER 2023-03-23 18:57 | Inpatient (IN) | payer OTHER ==
--- OUTSIDE RECORDS SUMMARY | 2023-03-23 19:02 | XMS REPORT | Continuity of Care Document ---
:1965 Author Organization [facility] t Address [address] [place] [address] [address] [place] [address] Care Team Providers Name Role Phone Zhou Drake Primary Care Physician JULISA DURAN Attending Clinician Unavailable Veronica Truong PTA Attending Clinician Unavailable Renee SMITH, Julisa Jackson Attending Clinician Logan Lance MD Attending Clinician Donaldo Tran PTNiyah Attending Clinician Unavailable Doctor Unassigned, [place] Attending Clinician Unavailable LOGAN LANCE Attending Clinician Unavailable KATE ALANIZ Attending Clinician Unavailable Anna PTNicolasa Attending Clinician Unavailable Payers Payer Name Policy Type Policy Number Effective Date Expiration Date Mikey corea MEDICARE PART A [id number] 2017 \T\ B 00:00:00 Problems Condition Condition Condition Status Onset Resolution Last Treating Co mments Source Name Details Category Date Date Treatment Clinician Date Chronic Chronic Disease Active 2019-10 [facility] edema edema 1-12 ity of 00:00: [place] 00 Medical Branch 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 Uni vers (above (above 1-12 ity of knee knee 00:00: [place] amputation amputation 00 Me dical ), right ), right Branch Allergies, Adverse Reactions, Alerts Allergy Allergy Status Severity Reaction(s) Onset Inactive Treating Comm ents Source Name Type Date Date Clinician NO KNOWN Drug Active Univers ALLERGIE Class ity of S [facility] Social History Social Habit Start Date Stop Date Quantity Comments Source Alcohol intake 2020-06-25 2020-06-25 Ex-drinker University 00:00:00 00:00:00 (finding) [facility] Tobacco use and 2019-11-25 2019-11-25 Smokeless tobacco Un iversity of exposure 00:00:00 00:00:00 non-user [facility] [birth year] Universit [facility] of 00:00:00 00:00:00 [facility] Smoking Status Start Date Stop Date Source Unknown if ever smoked Universit y of [facility] Never smoked tobacco [facility] Medications Ordered Filled Start Stop Current Ordering Indication Dosage Frequency Signature Comments Components Source Medication Medication Date Date Medication? Clinician (SIG) Name Name GLIPIZIDE 2020-10 Yes [id number] TAKE ONE Univers 10 mg 0-26 TABLET BY ity of tablet 00:00: [facility] DAILY Medical Branch GLIPIZIDE 2020-10 Yes [id number] TAKE ONE Univers 10 mg 0-26 TABLET BY ity of tablet 00:00: [facility] DAILY Medical Branch GLIPIZIDE 2020-10 Yes [id number] TAKE ONE Univers 10 mg 0-26 TABLET BY ity of tablet 00:00: [facility] DAILY Medical Branch GLIPIZIDE 2020-10 Yes [id number] TAKE ONE Univers 10 mg 0-26 TABLET BY ity of tablet 00:00: [facility] DAILY Medical Branch GLIPIZIDE 2020-10 Yes [id number] TAKE ONE Univers 10 mg 0-26 TABLET BY ity of tablet 00:00: [facility] DAILY Medical Branch GLIPIZIDE 2020-10 Yes [id number] TAKE ONE Univers 10 mg 0-26 TABLET BY ity of tablet 00:00: [facility] DAILY Medical Branch GLIPIZIDE 2020-10 Yes [id number] TAKE ONE Univers 10 mg 0-26 TABLET BY ity of tablet 00:00: [facility] DAILY Medical Branch GLIPIZIDE 2020-10 Yes [id number] TAKE ONE Univers 10 mg 0-26 TABLET BY ity of tablet 00:00: [facility] DAILY Medical Branch GLIPIZIDE 2020-10 Yes [id number] TAKE ONE Univers 10 mg 0-26 TABLET BY ity of tablet 00:00: [facility] DAILY Medical Branch GLIPIZIDE 2020-10 Yes [id number] TAKE ONE Univers 10 mg 0-26 TABLET BY ity of tablet 00:00: [facility] DAILY Medical Branch GLIPIZIDE 2020-10 Yes [id number] TAKE ONE Univers 10 mg 0-26 TABLET BY ity of tablet 00:00: [facility] DAILY Medical Branch GLIPIZIDE 2020-10 Yes [id number] TAKE ONE Univers 10 mg 0-26 TABLET BY ity of tablet 00:00: [facility] DAILY Medical Branch GLIPIZIDE 2020-10 Yes [id number] TAKE ONE Univers 10 mg 0-26 TABLET BY ity of tablet 00:00: [facility] DAILY Medical Branch GLIPIZIDE 2020-10 Yes [id number] TAKE ONE Univers 10 mg 0-26 TABLET BY ity of tablet 00:00: [facility] DAILY Medical Branch GLIPIZIDE 2020-10 Yes [id number] TAKE ONE Univers 10 mg 0-26 TABLET BY ity of tablet 00:00: [facility] DAILY Medical Branch GLIPIZIDE 2020-10 Yes [id number] TAKE ONE Univers 10 mg 0-26 TABLET BY ity of tablet 00:00: [facility] DAILY Medical Branch GLIPIZIDE 2020-10 Yes [id number] TAKE ONE Univers 10 mg 0-26 TABLET BY ity of tablet 00:00: [facility] DAILY Medical Branch GLIPIZIDE 2020-10 Yes [id number] TAKE ONE Univers 10 mg 0-26 TABLET BY ity of tablet 00:00: [facility] DAILY Medical Branch GLIPIZIDE 2020-10 Yes [id number] TAKE ONE Univers 10 mg 0-26 TABLET BY ity of tablet 00:00: [facility] DAILY Medical Branch GLIPIZIDE 2020-10 Yes [id number] TAKE ONE Univers 10 mg 0-26 TABLET BY ity of tablet 00:00: [facility] DAILY Medical Branch GLIPIZIDE 2020-10 Yes [id number] TAKE ONE Univers 10 mg 0-26 TABLET BY ity of tablet 00:00: [facility] DAILY Medical Branch GLIPIZIDE 2020-10 Yes [id number] TAKE ONE Univers 10 mg 0-26 TABLET BY ity of tablet 00:00: [facility] DAILY Medical Branch GLIPIZIDE 2020-10 Yes [id number] TAKE ONE Univers 10 mg 0-26 TABLET BY ity of tablet 00:00: [facility] DAILY Medical Branch GLIPIZIDE 2020-10 Yes [id number] TAKE ONE Univers 10 mg 0-26 TABLET BY ity of tablet 00:00: [facility] DAILY Medical Branch GLIPIZIDE 2020-10 Yes [id number] TAKE ONE Univers 10 mg 0-26 TABLET BY ity of tablet 00:00: [facility] DAILY Medical Branch GLIPIZIDE 2020-10 Yes [id number] TAKE ONE Univers 10 mg 0-26 TABLET BY ity of tablet 00:00: [facility] DAILY Medical Branch GLIPIZIDE 2020-10 Yes [id number] TAKE ONE Univers 10 mg 0-26 TABLET BY ity of tablet 00:00: [facility] DAILY Medical Branch GLIPIZIDE 2020-10 Yes [id number] TAKE ONE Univers 10 mg 0-26 TABLET BY ity of tablet 00:00: [facility] DAILY Medical Branch GLIPIZIDE 2020-10 Yes [id number] TAKE ONE Univers 10 mg 0-26 TABLET BY ity of tablet 00:00: [facility] DAILY Medical Branch GLIPIZIDE 2020-10 Yes [id number] TAKE ONE Univers 10 mg 0-26 TABLET BY ity of tablet 00:00: [facility] DAILY Medical Branch GLIPIZIDE 2020-10 Yes [id number] TAKE ONE Univers 10 mg 0-26 TABLET BY ity of tablet 00:00: [facility] DAILY Medical Branch GLIPIZIDE 2020-10 Yes [id number] TAKE ONE Univers 10 mg 0-26 TABLET BY ity of tablet 00:00: [facility] DAILY Medical Branch GLIPIZIDE 2020-10 Yes [id number] TAKE ONE Univers 10 mg 0-26 TABLET BY ity of tablet 00:00: [facility] DAILY Medical Branch GLIPIZIDE 2020-10 Yes [id number] TAKE ONE Univers 10 mg 0-26 TABLET BY ity of tablet 00:00: [facility] DAILY Medical Branch GLIPIZIDE 2020-10 Yes [id number] TAKE ONE Univers 10 mg 0-26 TABLET BY ity of tablet 00:00: [facility] DAILY Medical Branch GLIPIZIDE 2020-10 Yes [id number] TAKE ONE Univers 10 mg 0-26 TABLET BY ity of tablet 00:00: [facility] DAILY Medical Branch GLIPIZIDE 2020-10 Yes [id number] TAKE ONE Univers 10 mg 0-26 TABLET BY ity of tablet 00:00: [facility] DAILY Medical Branch GLIPIZIDE 2020-10 Yes [id number] TAKE ONE Univers 10 mg 0-19 TABLET BY ity of tablet 00:00: [facility]OU[facility] DAILY [facility] Branch GLIPIZIDE 2020-2020- No [id number] TAKE ONE Univers 10 mg 0-19 10-26 TABLET BY ity of tablet 00:00: 00:00 MOUTH [place] 00 : DAILY Medical Branch PIOGLITAZON Yes TAKE ONE Un senthil E 30 mg 9-20 TABLET BY ity of tablet 00:00: MOUTH [place] DAILY Medical Branch TRIAMTERENE Yes [id number] TAKE ONE Univers -HYDROCHLOR 9-20 CAPSULE BY it y of OTHIAZIDE 00:00: MOUTH [place] 37.5-25 mg 00 EVERY Medical per capsule MORNING Branc h BUMETANIDE Yes [id number] TAKE ONE Univers 1 mg tablet 9-20 TABLET BY ity of 00:00: MOUTH [place] DAILY Medical Branch PIOGLITAZON Yes TAKE ONE Un senthil E 30 mg 9-20 TABLET BY ity of tablet 00:00: MOUTH [place] DAILY Medical Branch TRIAMTERENE Yes [id number] TAKE ONE Univers -HYDROCHLOR 9-20 CAPSULE BY it y of OTHIAZIDE 00:00: MOUTH [place] 37.5-25 mg 00 EVERY Medical per capsule MORNING Branc h BUMETANIDE Yes [id number] TAKE ONE Univers 1 mg tablet 9-20 TABLET BY ity of 00:00: MOUTH DAILY Medical Branch PIOGLITAZON Yes TAKE ONE Un senthil E 30 mg 9-20 TABLET BY ity of tablet 00:00: MOUTH [place] DAILY Medical Branch TRIAMTERENE Yes [id number] TAKE ONE Univers -HYDROCHLOR 9-20 CAPSULE BY it y of OTHIAZIDE 00:00: MOUTH [place] 37.5-25 mg 00 EVERY Medical per capsule MORNING Branc h BUMETANIDE Yes [id number] TAKE ONE Univers 1 mg tablet 9-20 TABLET BY ity of 00:00: MOUTH [place] DAILY Medical Branch PIOGLITAZON Yes TAKE ONE Un senthil E 30 mg 9-20 TABLET BY ity of tablet 00:00: MOUTH [place] DAILY Medical Branch TRIAMTERENE Yes [id number] TAKE ONE Univers -HYDROCHLOR 9-20 CAPSULE BY it y of OTHIAZIDE 00:00: MOUTH [place] 37.5-25 mg 00 EVERY Medical per capsule MORNING Branc h BUMETANIDE Yes [id number] TAKE ONE Univers 1 mg tablet 9-20 TABLET BY ity of 00:00: MOUTH DAILY Medical Branch PIOGLITAZON Yes TAKE ONE Un senthil E 30 mg 9-20 TABLET BY ity of tablet 00:00: MOUTH DAILY Medical Branch TRIAMTERENE Yes [id number] TAKE ONE Univers -HYDROCHLOR 9-20 CAPSULE BY it y of OTHIAZIDE 00:00: MOUTH [place] 37.5-25 mg 00 EVERY Medical per capsule MORNING Branc h BUMETANIDE Yes [id number] TAKE ONE Univers 1 mg tablet 9-20 TABLET BY ity of 00:00: MOUTH DAILY Medical Branch PIOGLITAZON Yes TAKE ONE Un senthil E 30 mg 9-20 TABLET BY ity of tablet 00:00: MOUTH DAILY Medical Branch TRIAMTERENE Yes [id number] TAKE ONE Univers -HYDROCHLOR 9-20 CAPSULE BY it y of OTHIAZIDE 00:00: MOUTH [place] 37.5-25 mg 00 EVERY Medical per capsule MORNING Branc h BUMETANIDE Yes [id number] TAKE ONE Univers 1 mg tablet 9-20 TABLET BY ity of 00:00: MOUTH DAILY Medical Branch PIOGLITAZON Yes TAKE ONE Un senthil E 30 mg 9-20 TABLET BY ity of tablet 00:00: MOUTH DAILY Medical Branch TRIAMTERENE Yes [id number] TAKE ONE Univers -HYDROCHLOR 9-20 CAPSULE BY it y of OTHIAZIDE 00:00: MOUTH [place] 37.5-25 mg 00 EVERY Medical per capsule MORNING Branc h BUMETANIDE Yes [id number] TAKE ONE Univers 1 mg tablet 9-20 TABLET BY ity of 00:00: MOUTH DAILY Medical Branch PIOGLITAZON Yes TAKE ONE Un senthil E 30 mg 9-20 TABLET BY ity of tablet 00:00: MOUTH DAILY Medical Branch PIOGLITAZON Yes TAKE ONE Un senthil E 30 mg 9-20 TABLET BY ity of tablet 00:00: MOUTH DAILY Medical Branch TRIAMTERENE 0 Yes [id number] TAKE ONE Univers -HYDROCHLOR 9-20 CAPSULE BY it y of OTHIAZIDE 00:00: MOUTH [place] 37.5-25 mg 00 EVERY Medical per capsule MORNING Bran h BUMETANIDE 0 Yes [id number] TAKE ONE Univers 1 mg tablet 9-20 TABLET BY ity of 00:00: MOUTH DAILY Medical Branch TRIAMTERENE 0 Yes [id number] TAKE ONE Univers -HYDROCHLOR 9-20 CAPSULE BY it y of OTHIAZIDE 00:00: MOUTH [place] 37.5-25 mg 00 EVERY Medical per capsule MORNING Branc h PIOGLITAZON Yes TAKE ONE Un senthil E 30 mg 9-20 TABLET BY ity of tablet 00:00: MOUTH DAILY Medical Branch TRIAMTERENE 0 Yes [id number] TAKE ONE Univers -HYDROCHLOR 9-20 CAPSULE BY it y of OTHIAZIDE 00:00: MOUTH [place] 37.5-25 mg 00 EVERY Medical per capsule MORNING Bran h BUMETANIDE 0 Yes [id number] TAKE ONE Univers 1 mg tablet 9-20 TABLET BY ity of 00:00: MOUTH DAILY Medical Branch BUMETANIDE 0 Yes [id number] TAKE ONE Univers 1 mg tablet 9-20 TABLET BY ity of 00:00: MOUTH DAILY Medical Branch PIOGLITAZON 0 Yes TAKE ONE Un senthil E 30 mg 9-20 TABLET BY ity of tablet 00:00: MOUTH DAILY Medical Branch TRIAMTERENE 0 Yes [id number] TAKE ONE Univers -HYDROCHLOR 9-20 CAPSULE BY it y of OTHIAZIDE 00:00: MOUTH [place] 37.5-25 mg 00 EVERY Medical per capsule MORNING Bran h BUMETANIDE 0 Yes [id number] TAKE ONE Univers 1 mg tablet 9-20 TABLET BY ity of 00:00: MOUTH DAILY Medical Branch PIOGLITAZON 0 Yes TAKE ONE Un senthil E 30 mg 9-20 TABLET BY ity of tablet 00:00: MOUTH DAILY Medical Branch TRIAMTERENE 0 Yes [id number] TAKE ONE Univers -HYDROCHLOR 9-20 CAPSULE BY it y of OTHIAZIDE 00:00: MOUTH [place] 37.5-25 mg 00 EVERY Medical per capsule MORNING Branc h BUMETANIDE Yes [id number] TAKE ONE Univers 1 mg tablet 9-20 TABLET BY ity of 00:00: MOUTH DAILY Medical Branch PIOGLITAZON Yes TAKE ONE Un senthil E 30 mg 9-20 TABLET BY ity of tablet 00:00: MOUTH DAILY Medical Branch TRIAMTERENE Yes [id number] TAKE ONE Univers -HYDROCHLOR 9-20 CAPSULE BY it y of OTHIAZIDE 00:00: MOUTH [place] 37.5-25 mg 00 EVERY Medical per capsule MORNING Branc h BUMETANIDE Yes [id number] TAKE ONE Univers 1 mg tablet 9-20 TABLET BY ity of 00:00: MOUTH DAILY Medical Branch PIOGLITAZON Yes TAKE ONE Un senthil E 30 mg 9-20 TABLET BY ity of tablet 00:00: MOUTH DAILY Medical Branch TRIAMTERENE Yes [id number] TAKE ONE Univers -HYDROCHLOR 9-20 CAPSULE BY it y of OTHIAZIDE 00:00: MOUTH [place] 37.5-25 mg 00 EVERY Medical per capsule MORNING Bran h BUMETANIDE Yes [id number] TAKE ONE Univers 1 mg tablet 9-20 TABLET BY ity of 00:00: MOUTH DAILY Medical Branch PIOGLITAZON Yes TAKE ONE Un senthil E 30 mg 9-20 TABLET BY ity of tablet 00:00: MOUTH DAILY Medical Branch TRIAMTERENE Yes [id number] TAKE ONE Univers -HYDROCHLOR 9-20 CAPSULE BY it y of OTHIAZIDE 00:00: MOUTH [place] 37.5-25 mg 00 EVERY Medical per capsule MORNING Branc h BUMETANIDE Yes [id number] TAKE ONE Univers 1 mg tablet 9-20 TABLET BY ity of 00:00: MOUTH DAILY Medical Branch PIOGLITAZON Yes TAKE ONE Un senthil E 30 mg 9-20 TABLET BY ity of tablet 00:00: MOUTH DAILY Medical Branch TRIAMTERENE Yes [id number] TAKE ONE Univers -HYDROCHLOR 9-20 CAPSULE BY it y of OTHIAZIDE 00:00: MOUTH [place] 37.5-25 mg 00 EVERY Medical per capsule MORNING Branc h BUMETANIDE Yes [id number] TAKE ONE Univers 1 mg tablet 9-20 TABLET BY ity of 00:00: MOUTH [place] 00 DAILY Medical Branch PIOGLITAZON Yes TAKE ONE Un senthil E 30 mg 9-20 TABLET BY ity of tablet 00:00: MOUTH DAILY Medical Branch TRIAMTERENE Yes [id number] TAKE ONE Univers -HYDROCHLOR 9-20 CAPSULE BY it y of OTHIAZIDE 00:00: MOUTH [place] 37.5-25 mg 00 EVERY Medical per capsule MORNING Branc h BUMETANIDE Yes [id number] TAKE ONE Univers 1 mg tablet 9-20 TABLET BY ity of 00:00: MOUTH DAILY Medical Branch PIOGLITAZON Yes TAKE ONE Un senthil E 30 mg 9-20 TABLET BY ity of tablet 00:00: MOUTH DAILY Medical Branch TRIAMTERENE Yes [id number] TAKE ONE Univers -HYDROCHLOR 9-20 CAPSULE BY it y of OTHIAZIDE 00:00: MOUTH [place] 37.5-25 mg 00 EVERY Medical per capsule MORNING Branc h BUMETANIDE Yes [id number] TAKE ONE Univers 1 mg tablet 9-20 TABLET BY ity of 00:00: MOUTH DAILY Medical Branch PIOGLITAZON Yes TAKE ONE Un senthil E 30 mg 9-20 TABLET BY ity of tablet 00:00: MOUTH DAILY Medical Branch TRIAMTERENE Yes [id number] TAKE ONE Univers -HYDROCHLOR 9-20 CAPSULE BY it y of OTHIAZIDE 00:00: MOUTH [place] 37.5-25 mg 00 EVERY Medical per capsule MORNING Branc h BUMETANIDE Yes [id number] TAKE ONE Univers 1 mg tablet 9-20 TABLET BY ity of 00:00: MOUTH DAILY Medical Branch PIOGLITAZON Yes TAKE ONE Un senthil E 30 mg 9-20 TABLET BY ity of tablet 00:00: MOUTH DAILY Medical Branch TRIAMTERENE Yes [id number] TAKE ONE Univers -HYDROCHLOR 9-20 CAPSULE BY it y of OTHIAZIDE 00:00: MOUTH [place] 37.5-25 mg 00 EVERY Medical per capsule MORNING Branc h BUMETANIDE Yes [id number] TAKE ONE Univers 1 mg tablet 9-20 TABLET BY ity of 00:00: MOUTH [place] DAILY Medical Branch PIOGLITAZON Yes TAKE ONE Un senthil E 30 mg 9-20 TABLET BY ity of tablet 00:00: MOUTH DAILY Medical Branch TRIAMTERENE Yes [id number] TAKE ONE Univers -HYDROCHLOR 9-20 CAPSULE BY it y of OTHIAZIDE 00:00: MOUTH [place] 37.5-25 mg 00 EVERY Medical per capsule MORNING Branc h BUMETANIDE Yes [id number] TAKE ONE Univers 1 mg tablet 9-20 TABLET BY ity of 00:00: MOUTH DAILY Medical Branch PIOGLITAZON Yes TAKE ONE Un senthil E 30 mg 9-20 TABLET BY ity of tablet 00:00: MOUTH DAILY Medical Branch TRIAMTERENE Yes [id number] TAKE ONE Univers -HYDROCHLOR 9-20 CAPSULE BY it y of OTHIAZIDE 00:00: MOUTH [place] 37.5-25 mg 00 EVERY Medical per capsule MORNING Branc h BUMETANIDE Yes [id number] TAKE ONE Univers 1 mg tablet 9-20 TABLET BY ity of 00:00: MOUTH DAILY Medical Branch PIOGLITAZON Yes TAKE ONE Un senthil E 30 mg 9-20 TABLET BY ity of tablet 00:00: MOUTH DAILY Medical Branch TRIAMTERENE Yes [id number] TAKE ONE Univers -HYDROCHLOR 9-20 CAPSULE BY it y of OTHIAZIDE 00:00: MOUTH [place] 37.5-25 mg 00 EVERY Medical per capsule MORNING Branc h BUMETANIDE Yes [id number] TAKE ONE Univers 1 mg tablet 9-20 TABLET BY ity of 00:00: MOUTH DAILY Medical Branch PIOGLITAZON Yes TAKE ONE Un senthil E 30 mg 9-20 TABLET BY ity of tablet 00:00: MOUTH DAILY Medical Branch TRIAMTERENE Yes [id number] TAKE ONE Univers -HYDROCHLOR 9-20 CAPSULE BY it y of OTHIAZIDE 00:00: MOUTH [place] 37.5-25 mg 00 EVERY Medical per capsule MORNING Branc h BUMETANIDE Yes [id number] TAKE ONE Univers 1 mg tablet 9-20 TABLET BY ity of 00:00: MOUTH [place] DAILY Medical Branch PIOGLITAZON Yes TAKE ONE Un senthil E 30 mg 9-20 TABLET BY ity of tablet 00:00: MOUTH DAILY Medical Branch TRIAMTERENE Yes [id number] TAKE ONE Univers -HYDROCHLOR 9-20 CAPSULE BY it y of OTHIAZIDE 00:00: MOUTH [place] 37.5-25 mg 00 EVERY Medical per capsule MORNING Branc h BUMETANIDE Yes [id number] TAKE ONE Univers 1 mg tablet 9-20 TABLET BY ity of 00:00: MOUTH DAILY Medical Branch PIOGLITAZON Yes TAKE ONE Un senthil E 30 mg 9-20 TABLET BY ity of tablet 00:00: MOUTH [place] DAILY Medical Branch TRIAMTERENE Yes [id number] TAKE ONE Univers -HYDROCHLOR 9-20 CAPSULE BY it y of OTHIAZIDE 00:00: MOUTH [place] 37.5-25 mg 00 EVERY Medical per capsule MORNING Bran h BUMETANIDE Yes [id number] TAKE ONE Univers 1 mg tablet 9-20 TABLET BY ity of 00:00: MOUTH DAILY Medical Branch PIOGLITAZON Yes TAKE ONE Un senthil E 30 mg 9-20 TABLET BY ity of tablet 00:00: MOUTH [place] DAILY Medical Branch TRIAMTERENE Yes [id number] TAKE ONE Univers -HYDROCHLOR 9-20 CAPSULE BY it y of OTHIAZIDE 00:00: MOUTH [place] 37.5-25 mg 00 EVERY Medical per capsule MORNING Branc h BUMETANIDE Yes [id number] TAKE ONE Univers 1 mg tablet 9-20 TABLET BY ity of 00:00: MOUTH [place] DAILY Medical Branch PIOGLITAZON Yes TAKE ONE Un senthil E 30 mg 9-20 TABLET BY ity of tablet 00:00: MOUTH DAILY [facility] Branch TRIAMTERENE Yes [id number] TAKE ONE Univers -HYDROCHLOR 9-20 CAPSULE BY it y of OTHIAZIDE 00:00: MOUTH [place] 37.5-25 mg 00 EVERY Medical per capsule MORNING Branc h BUMETANIDE Yes [id number] TAKE ONE Univers 1 mg tablet 9-20 TABLET BY ity of 00:00: MOUTH DAILY Medical Branch PIOGLITAZON Yes TAKE ONE Un senthil E 30 mg 9-20 TABLET BY ity of tablet 00:00: MOUTH DAILY [facility] Branch TRIAMTERENE Yes [id number] TAKE ONE Univers -HYDROCHLOR 9-20 CAPSULE BY it y of OTHIAZIDE 00:00: MOUTH [place] 37.5-25 mg 00 EVERY Medical per capsule MORNING Branc h BUMETANIDE Yes [id number] TAKE ONE Univers 1 mg tablet 9-20 TABLET BY ity of 00:00: MOUTH DAILY Medical Branch PIOGLITAZON Yes TAKE ONE Un senthil E 30 mg 9-20 TABLET BY ity of tablet 00:00: MOUTH DAILY [facility] Branch TRIAMTERENE Yes [id number] TAKE ONE Univers -HYDROCHLOR 9-20 CAPSULE BY it y of OTHIAZIDE 00:00: MOUTH [place] 37.5-25 mg 00 EVERY Medical per capsule MORNING Branc h BUMETANIDE Yes [id number] TAKE ONE Univers 1 mg tablet 9-20 TABLET BY ity of 00:00: MOUTH DAILY Medical Branch PIOGLITAZON Yes TAKE ONE Un senthil E 30 mg 9-20 TABLET BY ity of tablet 00:00: MOUTH DAILY Medical Branch TRIAMTERENE Yes [id number] TAKE ONE Univers -HYDROCHLOR 9-20 CAPSULE BY it y of OTHIAZIDE 00:00: MOUTH [place] 37.5-25 mg 00 EVERY Medical per capsule MORNING Branc h BUMETANIDE Yes [id number] TAKE ONE Univers 1 mg tablet 9-20 TABLET BY ity of 00:00: MOUTH DAILY [facility] Branch PIOGLITAZON Yes TAKE ONE Un senthil E 30 mg 9-20 TABLET BY ity of tablet 00:00: MOUTH DAILY [facility] Branch TRIAMTERENE Yes [id number] TAKE ONE Univers -HYDROCHLOR 9-20 CAPSULE BY it y of OTHIAZIDE 00:00: MOUTH [place] 37.5-25 mg 00 EVERY Medical per capsule MORNING Branc h BUMETANIDE Yes [id number] TAKE ONE Univers 1 mg tablet 9-20 TABLET BY ity of 00:00: MOUTH DAILY Medical Branch PIOGLITAZON Yes TAKE ONE Un senthil E 30 mg 9-20 TABLET BY ity of tablet 00:00: MOUTH DAILY [facility] Branch TRIAMTERENE Yes [id number] TAKE ONE Univers -HYDROCHLOR 9-20 CAPSULE BY it y of OTHIAZIDE 00:00: MOUTH [place] 37.5-25 mg 00 EVERY Medical per capsule MORNING Branc h BUMETANIDE Yes [id number] TAKE ONE Univers 1 mg tablet 9-20 TABLET BY ity of 00:00: MOUTH DAILY [facility] Branch PIOGLITAZON Yes TAKE ONE Un senthil E 30 mg 9-20 TABLET BY ity of tablet 00:00: MOUTH DAILY [facility] Branch TRIAMTERENE Yes [id number] TAKE ONE Univers -HYDROCHLOR 9-20 CAPSULE BY it y of OTHIAZIDE 00:00: MOUTH [place] 37.5-25 mg 00 EVERY Medical per capsule MORNING Branc h BUMETANIDE Yes [id number] TAKE ONE Univers 1 mg tablet 9-20 TABLET BY ity of 00:00: MOUTH DAILY [facility] Branch PIOGLITAZON Yes TAKE ONE Un senthil E 30 mg 9-20 TABLET BY ity of tablet 00:00: MOUTH DAILY [facility] Branch TRIAMTERENE Yes [id number] TAKE ONE Univers -HYDROCHLOR 9-20 CAPSULE BY it y of OTHIAZIDE 00:00: MOUTH [place] 37.5-25 mg 00 EVERY Medical per capsule MORNING Branc h BUMETANIDE Yes [id number] TAKE ONE Univers 1 mg tablet 9-20 TABLET BY ity of 00:00: MOUTH DAILY [facility] Branch PIOGLITAZON Yes TAKE ONE Un senthil E 30 mg 9-20 TABLET BY ity of tablet 00:00: MOUTH DAILY [facility] Branch TRIAMTERENE Yes [id number] TAKE ONE Univers -HYDROCHLOR 9-20 CAPSULE BY it y of OTHIAZIDE 00:00: MOUTH [place] 37.5-25 mg 00 EVERY Medical per capsule MORNING Branc h BUMETANIDE Yes [id number] TAKE ONE Univers 1 mg tablet 9-20 TABLET BY ity of 00:00: MOUTH DAILY [facility] Branch PIOGLITAZON Yes TAKE ONE Un senthil E 30 mg 9-20 TABLET BY ity of tablet 00:00: MOUTH DAILY [facility] Branch TRIAMTERENE Yes [id number] TAKE ONE Univers -HYDROCHLOR 9-20 CAPSULE BY it y of OTHIAZIDE 00:00: MOUTH [place] 37.5-25 mg 00 EVERY Medical per capsule MORNING Branc h BUMETANIDE Yes [id number] TAKE ONE Univers 1 mg tablet 9-20 TABLET BY ity of 00:00: MOUTH DAILY [facility] Branch PIOGLITAZON Yes TAKE ONE Un senthil E 30 mg 9-20 TABLET BY ity of tablet 00:00: MOUTH DAILY [facility] Branch TRIAMTERENE Yes [id number] TAKE ONE Univers -HYDROCHLOR 9-20 CAPSULE BY it y of OTHIAZIDE 00:00: MOUTH 37.5-25 mg 00 EVERY Medical per capsule MORNING Branc h BUMETANIDE Yes [id number] TAKE ONE Univers 1 mg tablet 9-20 TABLET BY ity of 00:00: MOUTH DAILY Medical Branch PIOGLITAZON Yes TAKE ONE Un senthil E 30 mg 9-20 TABLET BY ity of tablet 00:00: MOUTH DAILY [facility] Branch TRIAMTERENE Yes [id number] TAKE ONE Univers -HYDROCHLOR 9-20 CAPSULE BY it y of OTHIAZIDE 00:00: MOUTH 37.5-25 mg 00 EVERY Medical per capsule MORNING Bran h BUMETANIDE Yes [id number] TAKE ONE Univers 1 mg tablet 9-20 TABLET BY ity of 00:00: MOUTH DAILY Medical Branch metFORMIN 2020-0 Yes [id number] TAKE ONE [facility] 500 mg 8-31 TABLET BY ity of tablet 00:00: MOUTH 00 TWICE A Medical DAY WITH Branch MEALS metFORMIN 2020-0 Yes [id number] TAKE ONE [facility] 500 mg 8-31 TABLET BY ity of tablet 00:00: MOUTH 00 TWICE A Medical DAY WITH Branch MEALS metFORMIN 2020-0 Yes [id number] TAKE ONE [facility] 500 mg 8-31 TABLET BY ity of tablet 00:00: MOUTH 00 TWICE A Medical DAY WITH Branch MEALS metFORMIN 2021-0 Yes [id number] TAKE ONE [facility] 500 mg 8-31 TABLET BY ity of tablet 00:00: MOUTH 00 TWICE A Medical DAY WITH Branch MEALS metFORMIN 2021-0 Yes [id number] TAKE ONE [facility] 500 mg 8-31 TABLET BY ity of tablet 00:00: MOUTH 00 TWICE A Medical DAY WITH Branch MEALS metFORMIN 2021-0 Yes [id number] TAKE ONE [facility] 500 mg 8-31 TABLET BY ity of tablet 00:00: MOUTH TWICE A Medical DAY WITH Branch MEALS metFORMIN 2021-0 Yes [id number] TAKE ONE [facility] 500 mg 8-31 TABLET BY ity of tablet 00:00: MOUTH 00 TWICE A Medical DAY WITH Branch MEALS metFORMIN 2021-0 Yes [id number] TAKE ONE [facility] 500 mg 8-31 TABLET BY ity of tablet 00:00: MOUTH TWICE A Medical DAY WITH Branch MEALS metFORMIN 2021-0 Yes [id number] TAKE ONE [facility] 500 mg 8-31 TABLET BY ity of tablet 00:00: MOUTH TWICE A Medical DAY WITH Branch MEALS metFORMIN 2021-0 Yes [id number] TAKE ONE [facility] 500 mg 8-31 TABLET BY ity of tablet 00:00: MOUTH TWICE A Medical DAY WITH Branch MEALS metFORMIN 2021-0 Yes [id number] TAKE ONE [facility] 500 mg 8-31 TABLET BY [facility] tablet 00:00: MOUTH 00 TWICE A Medical DAY WITH Branch MEALS metFORMIN 2021-0 Yes [id number] TAKE ONE [facility] 500 mg 8-31 TABLET BY [facility] of tablet 00:00: MOUTH TWICE A Medical DAY WITH Branch MEALS metFORMIN 2021-0 Yes [id number] TAKE ONE [facility] 500 mg 8-31 TABLET BY [facility] of tablet 00:00: MOUTH TWICE A Medical DAY WITH Branch MEALS metFORMIN 2021-0 Yes [id number] TAKE ONE [facility] 500 mg 8-31 TABLET BY [facility] of tablet 00:00: MOUTH 00 TWICE A Medical DAY WITH Branch MEALS metFORMIN 2021-0 Yes [id number] TAKE ONE [facility] 500 mg 8-31 TABLET BY [facility] of tablet 00:00: MOUTH 00 TWICE A Medical DAY WITH Branch MEALS metFORMIN 2021-0 Yes [id number] TAKE ONE [facility] 500 mg 8-31 TABLET BY [facility] of tablet 00:00: MOUTH 00 TWICE A Medical DAY WITH Branch MEALS metFORMIN 2021-0 Yes [id number] TAKE ONE [facility] 500 mg 8-31 TABLET BY [facility] of tablet 00:00: MOUTH [place] 00 TWICE A Medical DAY WITH Branch MEALS metFORMIN 2021-0 Yes [id number] TAKE ONE [facility] 500 mg 8-31 TABLET BY [facility] of tablet 00:00: MOUTH [place] 00 TWICE A Medical DAY WITH Branch MEALS metFORMIN 2021-0 Yes [id number] TAKE ONE [facility] 500 mg 8-31 TABLET BY [facility] of tablet 00:00: MOUTH 00 TWICE A Medical DAY WITH Branch MEALS metFORMIN 2021-0 Yes [id number] TAKE ONE [facility] 500 mg 8-31 TABLET BY [facility] of tablet 00:00: MOUTH 00 TWICE A Medical DAY WITH Branch MEALS metFORMIN 2021-0 Yes [id number] TAKE ONE [facility] 500 mg 8-31 TABLET BY [facility] of tablet 00:00: MOUTH 00 TWICE A Medical DAY WITH Branch MEALS metFORMIN 2021-0 Yes [id number] TAKE ONE [facility] 500 mg 8-31 TABLET BY [facility] of tablet 00:00: MOUTH 00 TWICE A Medical DAY WITH Branch MEALS metFORMIN 2021-0 Yes [id number] TAKE ONE [facility] 500 mg 8-31 TABLET BY [facility] of tablet 00:00: MOUTH 00 TWICE A Medical DAY WITH Branch MEALS metFORMIN 2021-0 Yes [id number] TAKE ONE [facility] 500 mg 8-31 TABLET BY [facility] of tablet 00:00: MOUTH 00 TWICE A Medical DAY WITH Branch MEALS metFORMIN 2021-0 Yes [id number] TAKE ONE [facility] 500 mg 8-31 TABLET BY [facility] of tablet 00:00: MOUTH 00 TWICE A Medical DAY WITH Branch MEALS metFORMIN 2021-0 Yes [id number] TAKE ONE [facility] 500 mg 8-31 TABLET BY [facility] of tablet 00:00: MOUTH 00 TWICE A Medical DAY WITH Branch MEALS metFORMIN 2021-0 Yes [id number] TAKE ONE [facility] 500 mg 8-31 TABLET BY it[facility] of tablet 00:00: MOUTH [place] 00 TWICE A Medical DAY WITH Branch MEALS metFORMIN 2021-0 Yes [id number] TAKE ONE [facility] 500 mg 8-31 TABLET BY [facility] of tablet 00:00: MOUTH 00 TWICE A Medical DAY WITH Branch MEALS metFORMIN 2021-0 Yes [id number] TAKE ONE [facility] 500 mg 8-31 TABLET BY [facility] of tablet 00:00: MOUTH [place] 00 TWICE A Medical DAY WITH Branch MEALS metFORMIN 2021-0 Yes [id number] TAKE ONE [facility] 500 mg 8-31 TABLET BY it[facility] of tablet 00:00: MOUTH [place] 00 TWICE A Medical DAY WITH Branch MEALS metFORMIN 2021-0 Yes [id number] TAKE ONE [facility] 500 mg 8-31 TABLET BY it[facility] of tablet 00:00: MOUTH TWICE A Medical DAY WITH Branch MEALS metFORMIN 2021-0 Yes [id number] TAKE ONE [facility] 500 mg 8-31 TABLET BY it[facility] of tablet 00:00: MOUTH TWICE A Medical DAY WITH Branch MEALS metFORMIN 2021-0 Yes [id number] TAKE ONE [facility] 500 mg 8-31 TABLET BY ity of tablet 00:00: MOUTH TWICE A Medical DAY WITH Branch MEALS metFORMIN 2021-0 Yes [id number] TAKE ONE [facility] 500 mg 8-31 TABLET BY ity of tablet 00:00: MOUTH TWICE A Medical DAY WITH Branch MEALS metFORMIN 2021-0 Yes [id number] TAKE ONE [facility] 500 mg 8-31 TABLET BY it[facility] of tablet 00:00: MOUTH TWICE A Medical DAY WITH Branch MEALS metFORMIN 2021-0 Yes [id number] TAKE ONE [facility] 500 mg 8-31 TABLET BY it[facility] of tablet 00:00: MOUTH TWICE A Medical DAY WITH Branch MEALS metFORMIN 2021-0 Yes [id number] TAKE ONE [facility] 500 mg 8-31 TABLET BY it[facility] of tablet 00:00: MOUTH TWICE A Medical DAY WITH Branch MEALS metFORMIN 2021-0 Yes [id number] TAKE ONE [facility] 500 mg 8-31 TABLET BY ity of tablet 00:00: MOUTH TWICE A Medical DAY WITH Branch MEALS metFORMIN 2021-0 Yes [id number] TAKE ONE [facility] 500 mg 8-31 TABLET BY ity of tablet 00:00: MOUTH TWICE A Medical DAY WITH Branch MEALS metFORMIN 2021-0 Yes [id number] TAKE ONE [facility] 500 mg 8-31 TABLET BY ity of tablet 00:00: MOUTH TWICE A Medical DAY WITH Branch MEALS ATORVASTATI 2021-0 Yes TAKE ONE Un senthil N 40 mg 8-19 TABLET BY ity of tablet 00:00: MOUTH AT [place] BEDTIME Medical Branch ATORVASTATI 2021-0 Yes TAKE ONE Un senthil N 40 mg 8-19 TABLET BY ity of tablet 00:00: MOUTH AT [place] BEDTIME Medical Branch ATORVASTATI 1-0 Yes TAKE ONE Un senthil N 40 mg 8-19 TABLET BY ity of tablet 00:00: MOUTH AT [place] BEDTIME Medical Branch ATORVASTATI 2021-0 Yes TAKE ONE Un senthil N 40 mg 8-19 TABLET BY ity of tablet 00:00: MOUTH AT [place] [facility] TAKE ONE Un senthil N 40 mg 8-19 TABLET BY ity of tablet 00:00: MOUTH AT [place] [facility] Yes TAKE ONE Un sent[facility]il N 40 mg 8-19 TABLET BY ity of tablet 00:00: MOUTH AT [place] [facility] Yes TAKE ONE Un sent[facility]il N 40 mg 8-19 TABLET BY ity of tablet 00:00: MOUTH AT [place] [facility] Yes TAKE ONE Un sent[facility]il N 40 mg 8-19 TABLET BY ity of tablet 00:00: MOUTH AT [place] [facility] Yes TAKE ONE Un sent[facility]il N 40 mg 8-19 TABLET BY ity of tablet 00:00: MOUTH AT [place] [facility] Yes TAKE ONE Un senthil N 40 mg 8-19 TABLET BY ity of tablet 00:00: MOUTH AT [place] [facility] Yes TAKE ONE Un senthil N 40 mg 8-19 TABLET BY ity of tablet 00:00: MOUTH AT [place] [facility] Yes TAKE ONE Un senthil N 40 mg 8-19 TABLET BY ity of tablet 00:00: MOUTH AT [place] [facility] Yes TAKE ONE Un senthil N 40 mg 8-19 TABLET BY ity of tablet 00:00: MOUTH AT [place] [facility] Yes TAKE ONE Un sent[facility]il N 40 mg 8-19 TABLET BY ity of tablet 00:00: MOUTH AT [place] [facility] Yes TAKE ONE Un senthil N 40 mg 8-19 TABLET BY ity of tablet 00:00: MOUTH AT [place] [facility] TAKE ONE Un sent[facility]il N 40 mg 8-19 TABLET BY ity of tablet 00:00: MOUTH AT [place] [facility] Yes TAKE ONE Un senthil N 40 mg 8-19 TABLET BY ity of tablet 00:00: MOUTH AT [place] [facility] Yes TAKE ONE Un sent[facility]il N 40 mg 8-19 TABLET BY ity of tablet 00:00: MOUTH AT [place] [facility] Yes TAKE ONE Un senthil N 40 mg 8-19 TABLET BY ity of tablet 00:00: MOUTH AT [place] [facility] Yes TAKE ONE Un senthil N 40 mg 8-19 TABLET BY ity of tablet 00:00: MOUTH AT [place] [facility] Yes TAKE ONE Un senthil N 40 mg 8-19 TABLET BY ity of tablet 00:00: MOUTH AT [place] [facility] Yes TAKE ONE Un senthil N 40 mg 8-19 TABLET BY ity of tablet 00:00: MOUTH AT [place] [facility] Yes TAKE ONE Un sent[facility]il N 40 mg 8-19 TABLET BY ity of tablet 00:00: MOUTH AT [place] [facility] Yes TAKE ONE Un sent[facility]il N 40 mg 8-19 TABLET BY ity of tablet 00:00: MOUTH AT [place] [facility] Yes TAKE ONE Un sent[facility]il N 40 mg 8-19 TABLET BY ity of tablet 00:00: MOUTH AT [place] [facility] Yes TAKE ONE Un sent[facility]il N 40 mg 8-19 TABLET BY ity of tablet 00:00: MOUTH AT [place] [facility] Yes TAKE ONE Un senthil N 40 mg 8-19 TABLET BY ity of tablet 00:00: MOUTH AT [place] [facility] Yes TAKE ONE Un sent[facility]il N 40 mg 8-19 TABLET BY ity of tablet 00:00: MOUTH AT [place] [facility] Yes TAKE ONE Un senthil N 40 mg 8-19 TABLET BY ity of tablet 00:00: MOUTH AT [place] [facility] Yes TAKE ONE Un sent[facility]il N 40 mg 8-19 TABLET BY ity of tablet 00:00: MOUTH AT [place] [facility] Yes TAKE ONE Un sent[facility]il N 40 mg 8-19 TABLET BY ity of tablet 00:00: MOUTH AT [place] [facility] Yes TAKE ONE Un sent[facility]il N 40 mg 8-19 TABLET BY ity of tablet 00:00: MOUTH AT [place] [facility] Yes TAKE ONE Un sent[facility]il N 40 mg 8-19 TABLET BY ity of tablet 00:00: MOUTH AT [place] [facility] Yes TAKE ONE Un senthil N 40 mg 8-19 TABLET BY ity of tablet 00:00: MOUTH AT [place] [facility] Yes TAKE ONE Un senthil N 40 mg 8-19 TABLET BY ity of tablet 00:00: MOUTH AT [place] [facility] Yes TAKE ONE Un senthil N 40 mg 8-19 TABLET BY ity of tablet 00:00: MOUTH AT [place] [facility] Yes TAKE ONE Un senthil N 40 mg 8-19 TABLET BY ity of tablet 00:00: MOUTH AT [place] [facility] Yes TAKE ONE Un senthil N 40 mg 8-19 TABLET BY ity of tablet 00:00: MOUTH AT [place] [facility] Yes TAKE ONE Un sent[facility]il N 40 mg 8-19 TABLET BY ity of tablet 00:00: MOUTH AT [place] [facility] Yes TAKE ONE Un sent[facility]il N 40 mg 8-19 TABLET BY ity of tablet 00:00: MOUTH AT [place] [facility] GLIPIZIDE 0 Yes [id number] TAKE ONE [facility] 10 mg 8-16 TABLET BY ity of tablet 00:00: MOUTH [place] DAILY [facility] GLIPIZIDE 2020-0 Yes [id number] TAKE ONE [facility] 10 mg 8-16 TABLET BY ity of tablet 00:00: MOUTH [place] DAILY Medical Branch GLIPIZIDE 2020-0 2020- No [id number] TAKE ONE [facility] 10 mg 8-16 10-19 TABLET BY ity of tablet 00:00: 00:00 MOUTH [place] 00 :00 DAILY Medical Branch BUMETANIDE 2020-0 Yes [id number] TAKE ONE [facility] 1 mg tablet 7-27 TABLET BY ity of 00:00: MOUTH DAILY Medical Branch TRIAMTERENE 2020-0 Yes [id number] TAKE ONE [facility] -HYDROCHLOR 7-27 CAPSULE BY it y of OTHIAZIDE 00:00: MOUTH [place] 37.5-25 mg 00 EVERY Medical per capsule MORNING Branc h BUMETANIDE 2020-0 2020- No [id number] TAKE ONE [facility] 1 mg tablet 7-27 09-20 TABLET BY it y of 00:00: 00:00 MOUTH [place] 00 :00 DAILY Medical Branch TRIAMTERENE 2020-0 2020- No [id number] TAKE ONE [facility] -HYDROCHLOR 7-27 09-20 CAPSULE BY i ty of OTHIAZIDE 00:00: 00:00 MOUTH [place] 37.5-25 mg 00 :00 EVERY Medical per capsule MORNING Branc h KCL 10 mEq 2020-0 Yes [id number] TAKE ONE [facility] tablet 7-21 TABLET BY ity of 00:00: MOUTH DAILY Medical Branch KCL 10 mEq 1-0 Yes [id number] TAKE ONE [facility] tablet 7-21 TABLET BY ity of 00:00: MOUTH DAILY Medical Branch KCL 10 mEq 1-0 Yes [id number] TAKE ONE [facility] tablet 7-21 TABLET BY ity of 00:00: MOUTH DAILY Medical Branch KCL 10 mEq 1-0 Yes [id number] TAKE ONE [facility] tablet 7-21 TABLET BY ity of 00:00: MOUTH DAILY Medical Branch KCL 10 mEq 1-0 Yes [id number] TAKE ONE [facility] tablet 7-21 TABLET BY ity of 00:00: MOUTH DAILY Medical Branch KCL 10 mEq 1-0 Yes [id number] TAKE ONE [facility] tablet 7-21 TABLET BY ity of 00:00: MOUTH [place] DAILY Medical Branch KCL 10 mEq 1-0 Yes [id number] TAKE ONE [facility] tablet 7-21 TABLET BY ity of 00:00: MOUTH DAILY Medical Branch KCL 10 mEq 1-0 Yes [id number] TAKE ONE [facility] tablet 7-21 TABLET BY ity of 00:00: MOUTH [place] DAILY Medical Branch KCL 10 mEq 1-0 Yes [id number] TAKE ONE [facility] tablet 7-21 TABLET BY ity of 00:00: MOUTH DAILY Medical Branch KCL 10 mEq 2021-0 Yes [id number] TAKE ONE [facility] tablet 7-21 TABLET BY ity of 00:00: MOUTH DAILY Medical Branch KCL 10 mEq 2021-0 Yes [id number] TAKE ONE [facility] tablet 7-21 TABLET BY ity of 00:00: MOUTH DAILY Medical Branch KCL 10 mEq 2021-0 Yes [id number] TAKE ONE [facility] tablet 7-21 TABLET BY ity of 00:00: MOUTH DAILY Medical Branch KCL 10 mEq 2021-0 Yes [id number] TAKE ONE [facility] tablet 7-21 TABLET BY ity of 00:00: MOUTH DAILY Medical Branch KCL 10 mEq 2021-0 Yes [id number] TAKE ONE [facility] tablet 7-21 TABLET BY ity of 00:00: DAILY Medical Branch KCL 10 mEq 2021-0 Yes [id number] TAKE ONE [facility] tablet 7-21 TABLET BY ity of 00:00: DAILY Medical Branch KCL 10 mEq 2021-0 Yes [id number] TAKE ONE [facility] tablet 7-21 TABLET BY ity of 00:00: MOUTH DAILY Medical Branch KCL 10 mEq 2021-0 Yes [id number] TAKE ONE [facility] tablet 7-21 TABLET BY ity of 00:00: MOUTH DAILY Medical Branch KCL 10 mEq 2021-0 Yes [id number] TAKE ONE [facility] tablet 7-21 TABLET BY ity of 00:00: [place] DAILY Medical Branch KCL 10 mEq 2021-0 Yes [id number] TAKE ONE [facility] tablet 7-21 TABLET BY ity of 00:00: MOUTH DAILY Medical Branch KCL 10 mEq 2021-0 Yes [id number] TAKE ONE [facility] tablet 7-21 TABLET BY ity of 00:00: MOUTH [place] DAILY Medical Branch KCL 10 mEq 2021-0 Yes [id number] TAKE ONE [facility] tablet 7-21 TABLET BY ity of 00:00: MOUTH DAILY Medical Branch KCL 10 mEq 2021-0 Yes [id number] TAKE ONE [facility] tablet 7-21 TABLET BY ity of 00:00: MOUTH [place] DAILY Medical Branch KCL 10 mEq 2021-0 Yes [id number] TAKE ONE [facility] tablet 7-21 TABLET BY ity of 00:00: MOUTH DAILY Medical Branch KCL 10 mEq 2021-0 Yes [id number] TAKE ONE [facility] tablet 7-21 TABLET BY ity of 00:00: MOUTH DAILY Medical Branch KCL 10 mEq 2021-0 Yes [id number] TAKE ONE [facility] tablet 7-21 TABLET BY ity of 00:00: MOUTH DAILY Medical Branch KCL 10 mEq 2021-0 Yes [id number] TAKE ONE [facility] tablet 7-21 TABLET BY ity of 00:00: DAILY Medical Branch KCL 10 mEq 2021-0 Yes [id number] TAKE ONE [facility] tablet 7-21 TABLET BY ity of 00:00: MOUTH DAILY Medical Branch KCL 10 mEq 2021-0 Yes [id number] TAKE ONE [facility] tablet 7-21 TABLET BY ity of 00:00: [place] DAILY Medical Branch KCL 10 mEq 2021-0 Yes [id number] TAKE ONE [facility] tablet 7-21 TABLET BY ity of 00:00: [facility] DAILY Medical Branch KCL 10 mEq 2021-0 Yes [id number] TAKE ONE [facility] tablet 7-21 TABLET BY ity of 00:00: DAILY Medical Branch KCL 10 mEq 2021-0 Yes [id number] TAKE ONE [facility] tablet 7-21 TABLET BY ity of 00:00: [place] DAILY Medical Branch KCL 10 mEq 2021-0 Yes [id number] TAKE ONE [facility] tablet 7-21 TABLET BY ity of 00:00: [place] DAILY Medical Branch KCL 10 mEq 1-0 Yes [id number] TAKE ONE [facility] tablet 7-21 TABLET BY ity of 00:00: [facility] DAILY Medical Branch KCL 10 mEq 2021-0 Yes [id number] TAKE ONE [facility] tablet 7-21 TABLET BY ity of 00:00: [facility] DAILY Medical Branch KCL 10 mEq 2021-0 Yes [id number] TAKE ONE [facility] tablet 7-21 TABLET BY ity of 00:00: [facility] DAILY Medical Branch KCL 10 mEq 2021-0 Yes [id number] TAKE ONE [facility] tablet 7-21 TABLET BY ity of 00:00: [facility] DAILY Medical Branch KCL 10 mEq 2021-0 Yes [id number] TAKE ONE [facility] tablet 7-21 TABLET BY ity of 00:00: [facility] DAILY Medical Branch KCL 10 mEq 2021-0 Yes [id number] TAKE ONE [facility] tablet 7-21 TABLET BY ity of 00:00: MOUTH DAILY Medical Branch KCL 10 mEq 2020-0 Yes [id number] TAKE ONE [facility] tablet 7-21 TABLET BY ity of 00:00: MOUTH DAILY Medical Branch KCL 10 mEq 2020-0 Yes [id number] TAKE ONE [facility] tablet 7-21 TABLET BY ity of 00:00: MOUTH DAILY Medical Branch metFORMIN 2020-0 2021- No [id number] TAKE ONE [facility] 500 mg 6-21 08-31 TABLET BY ity of tablet 00:00: 00:00 MOUTH 00 :00 TWICE A Medical DAY WITH Branch MEALS PIOGLITAZON 2020-0 Yes TAKE ONE Un senthil E 30 mg 6-16 TABLET BY ity of tablet 00:00: [facility] DAILY Medical Branch PIOGLITAZON 2020-0 2020- No TAKE ONE U nivers E 30 mg 6-16 09-20 TABLET BY ity of tablet 00:00: 00:00 MOUTH [place] 00 :00 DAILY Medical Branch exenatide 2020-0 Yes [id number] 2mg inject Un senthil microsphere 4-21 0.65 mL ity o f s 00:00: [facility] [place] [facility] 2 mg/0.65 weekly. Branch mL injection exenatide 2020-0 Yes [id number] 2mg inject Un senthil microsphere 4-21 0.65 mL ity o f s 00:00: under the [place] ([facility]) 00 skin Medical 2 mg/0.65 weekly. Branch mL injection exenatide 2020-0 Yes [id number] 2mg inject Un senthil microsphere 4-21 0.65 mL ity o f s 00:00: under the [place] ([facility]) 00 skin Medical 2 mg/0.65 weekly. Branch mL injection exenatide 2020-0 Yes [id number] 2mg inject Un senthil microsphere 4-21 0.65 mL ity o f s 00:00: under the [place] ([facility]) 00 skin Medical 2 mg/0.65 weekly. Branch mL injection exenatide 2020-0 Yes [id number] 2mg inject Un senthil microsphere 4-21 0.65 mL ity o f s 00:00: under the [place] ([facility]) 00 skin Medical 2 mg/0.65 weekly. Branch mL injection exenatide 2020-0 Yes [id number] 2mg inject Un senthil microsphere 4-21 0.65 mL ity o f s 00:00: under the [place] ([facility]) 00 skin Medical 2 mg/0.65 weekly. Branch mL injection exenatide 2020-0 Yes [id number] 2mg inject Un senthil microsphere 4-21 0.65 mL ity o f s 00:00: under the [place] ([facility]) 00 skin Medical 2 mg/0.65 weekly. Branch mL injection exenatide 2020-0 Yes [id number] 2mg inject Un senthil microsphere 4-21 0.65 mL ity o f s 00:00: under the [place] ([facility]) 00 skin Medical 2 mg/0.65 weekly. Branch mL injection exenatide 2020-0 Yes [id number] 2mg inject Un setnhil microsphere 4-21 0.65 mL ity o f s 00:00: under the ([facility]) 00 skin Medical 2 mg/0.65 weekly. Branch mL injection exenatide 2020-0 Yes [id number] 2mg inject Un senthil microsphere 4-21 0.65 mL ity o f s 00:00: under the [place] ([facility]) 00 skin Medical 2 mg/0.65 weekly. Branch mL injection exenatide 2020-0 Yes [id number] 2mg inject Un senthil microsphere 4-21 0.65 mL ity o f s 00:00: under the ([facility]) 00 skin Medical 2 mg/0.65 weekly. Branch mL injection exenatide 2020-0 Yes [id number] 2mg inject Un senthil microsphere 4-21 0.65 mL ity o f s 00:00: under the [place] ([facility]) 00 skin Medical 2 mg/0.65 weekly. Branch mL injection exenatide 2020-0 Yes [id number] 2mg inject Un senthil microsphere 4-21 0.65 mL ity o f s 00:00: under the [place] ([facility]) 00 skin Medical 2 mg/0.65 weekly. Branch mL injection exenatide 2020-0 Yes [id number] 2mg inject Un senthil microsphere 4-21 0.65 mL ity o f s 00:00: under the [place] ([facility]) 00 skin Medical 2 mg/0.65 weekly. Branch mL injection exenatide 1-0 Yes [id number] 2mg inject Un senthil microsphere 4-21 0.65 mL ity o f s 00:00: under the [place] ([facility]) 00 skin Medical 2 mg/0.65 weekly. Branch mL injection exenatide 1-0 Yes [id number] 2mg inject Un senthil microsphere 4-21 0.65 mL ity o f s 00:00: under the [place] ([facility]) 00 skin Medical 2 mg/0.65 weekly. Branch mL injection exenatide 2020-0 Yes [id number] 2mg inject Un senthil microsphere 4-21 0.65 mL ity o f s 00:00: under the [place] ([facility]) 00 skin Medical 2 mg/0.65 weekly. Branch mL injection exenatide 2020-0 Yes [id number] 2mg inject Un senthil microsphere 4-21 0.65 mL ity o f s 00:00: under the ([facility]) 00 skin Medical 2 mg/0.65 weekly. Branch mL injection exenatide 2020-0 Yes [id number] 2mg inject Un senthil microsphere 4-21 0.65 mL ity o f s 00:00: under the [place] ([facility]) 00 skin Medical 2 mg/0.65 weekly. Branch mL injection exenatide 1-0 Yes [id number] 2mg inject Un senthil microsphere 4-21 0.65 mL ity o f s 00:00: under the [place] ([facility]) 00 skin Medical 2 mg/0.65 weekly. Branch mL injection exenatide 1-0 Yes [id number] 2mg inject Un senthil microsphere 4-21 0.65 mL ity o f s 00:00: under the [place] ([facility]) 00 skin Medical 2 mg/0.65 weekly. Branch mL injection exenatide 1-0 Yes [id number] 2mg inject Un senthil microsphere 4-21 0.65 mL ity o f s 00:00: under the [place] ([facility]) 00 skin Medical 2 mg/0.65 weekly. Branch mL injection exenatide 1-0 Yes [id number] 2mg inject Un senthil microsphere 4-21 0.65 mL ity o f s 00:00: under the [place] ([facility]) 00 skin Medical 2 mg/0.65 weekly. Branch mL injection exenatide 2020-0 Yes [id number] 2mg inject Un senthil microsphere 4-21 0.65 mL ity o f s 00:00: under the [place] ([facility]) 00 skin Medical 2 mg/0.65 weekly. Branch mL injection exenatide 2020-0 Yes [id number] 2mg inject Un senthil microsphere 4-21 0.65 mL ity o f s 00:00: under the [place] ([facility]) 00 skin Medical 2 mg/0.65 weekly. Branch mL injection exenatide 2020-0 Yes [id number] 2mg inject Un esnthil microsphere 4-21 0.65 mL ity o f s 00:00: under the [place] ([facility]) 00 skin Medical 2 mg/0.65 weekly. Branch mL injection exenatide 2020-0 Yes [id number] 2mg inject Un senthil microsphere 4-21 0.65 mL ity o f s 00:00: under the [place] ([facility]) 00 skin Medical 2 mg/0.65 weekly. Branch mL injection exenatide 2020-0 Yes [id number] 2mg inject Un senthil microsphere 4-21 0.65 mL ity o f s 00:00: under the [place] ([facility]) 00 skin Medical 2 mg/0.65 weekly. Branch mL injection exenatide 2020-0 Yes [id number] 2mg inject Un senthil microsphere 4-21 0.65 mL ity o f s 00:00: under the [place] ([facility]) 00 skin Medical 2 mg/0.65 weekly. Branch mL injection exenatide 1-0 Yes [id number] 2mg inject Un senthil microsphere 4-21 0.65 mL ity o f s 00:00: under the [place] ([facility]) 00 skin Medical 2 mg/0.65 weekly. Branch mL injection exenatide 1-0 Yes [id number] 2mg inject Un senthil microsphere 4-21 0.65 mL ity o f s 00:00: under the [place] ([facility]) 00 skin Medical 2 mg/0.65 weekly. Branch mL injection exenatide 2020-0 Yes [id number] 2mg inject Un senthil microsphere 4-21 0.65 mL ity o f s 00:00: under the [place] ([facility]) 00 skin Medical 2 mg/0.65 weekly. Branch mL injection exenatide 2020-0 Yes [id number] 2mg inject Un senthil microsphere 4-21 0.65 mL ity o f s 00:00: under the [place] ([facility]) 00 skin Medical 2 mg/0.65 weekly. Branch mL injection exenatide 2020-0 Yes [id number] 2mg inject Un senthil microsphere 4-21 0.65 mL ity o f s 00:00: under the [place] ([facility]) 00 skin Medical 2 mg/0.65 weekly. Branch mL injection exenatide 2020-0 Yes [id number] 2mg inject Un senthil microsphere 4-21 0.65 mL ity o f s 00:00: under the [place] ([facility]) 00 skin Medical 2 mg/0.65 weekly. Branch mL injection exenatide 2020-0 Yes [id number] 2mg inject Un senthil microsphere 4-21 0.65 mL ity o f s 00:00: under the [place] ([facility]) 00 skin Medical 2 mg/0.65 weekly. Branch mL injection exenatide 2020-0 Yes [id number] 2mg inject Un senthil microsphere 4-21 0.65 mL ity o f s 00:00: under the [place] ([facility]) 00 skin Medical 2 mg/0.65 weekly. Branch mL injection exenatide 2020-0 Yes [id number] 2mg inject Un senthil microsphere 4-21 0.65 mL ity o f s 00:00: under the [place] ([facility]) 00 skin Medical 2 mg/0.65 weekly. Branch mL injection exenatide 2020-0 Yes [id number] 2mg inject Un senthil microsphere 4-21 0.65 mL ity o f s 00:00: under the [place] ([facility]) 00 skin Medical 2 mg/0.65 weekly. Branch mL injection exenatide 2020-0 Yes [id number] 2mg inject Un senthil microsphere 4-21 0.65 mL ity o f s 00:00: under the [place] ([facility]) 00 skin Medical 2 mg/0.65 weekly. Branch mL injection traMADoL 50 2020-0 Yes [id number] 50mg Take 1 Univ ers mg tablet 3-19 tablet by ity o f 00:00: mouth [place] 00 every 6 Medical (six) Branch hours as needed for Pain (scale 4-6). Indication s: acute pain exenatide 2020-0 Yes [id number] 2mg inject 2 [facility] microsphere 3-19 mg [...] Indication s: acute pain exenatide 2020-0 Yes [id number] 2mg inject 2 [facility] microsphere 3-19 mg [...] Indication s: acute pain exenatide 2020-0 Yes [id number] 2mg inject 2 [facility] microsphere 3-19 mg [...] Indication s: acute pain exenatide 2020-0 Yes [id number] 2mg inject 2 [facility] microsphere 3-19 mg [...] (scale 4-6). Indication s: acute pain exenatide 2021-0 Yes [id number] 2mg inject 2 [facility] microsphere 3-19 mg [...] Indication s: acute pain exenatide 2020-0 Yes [id number] 2mg inject 2 [facility] microsphere 3-19 mg [...] Indication s: acute pain exenatide 2020-0 Yes [id number] 2mg inject 2 [facility] microsphere 3-19 mg [...] Indication s: acute pain exenatide 2020-0 Yes [id number] 2mg inject 2 [facility] microsphere 3-19 mg [...] (scale 4-6). Indication s: acute pain exenatide 202-0 Yes [id number] 2mg inject 2 [facility] microsphere 3-19 mg [...] (scale 4-6). Indication s: acute pain exenatide 2021-0 Yes [id number] 2mg inject 2 [facility] microsphere 3-19 mg [...] (scale 4-6). Indication s: acute pain exenatide 2021-0 Yes [id number] 2mg inject 2 [facility] microsphere 3-19 mg [...] Indication s: acute pain exenatide 2020-0 Yes [id number] 2mg inject 2 [facility] microsphere 3-19 mg [...] (scale 4-6). Indication s: acute pain exenatide 2021-0 Yes [id number] 2mg inject 2 [facility] microsphere 3-19 mg under ity of s 2 mg 00:00: the skin [place] injection 00 every 7 Medical (seven) Branch days. traMADoL 50 1-0 Yes [id number] 50mg Take 1 Univ ers mg tablet 3-19 tablet by ity o f 00:00: mouth [place] 00 every 6 Medical (six) Branch hours as needed for Pain (scale 4-6). Indication s: acute pain exenatide 2021-0 Yes [id number] 2mg inject 2 [facility] microsphere 3-19 mg under ity of s 2 mg 00:00: the skin [place] injection 00 every 7 Medical (seven) Branch days. traMADoL 50 2021-0 Yes [id number] 50mg Take 1 Univ ers mg tablet 3-19 tablet by ity o f 00:00: mouth [place] 00 every 6 Medical (six) Branch hours as needed for Pain (scale 4-6). Indication s: acute pain exenatide 2020-0 Yes [id number] 2mg inject 2 [facility] microsphere 3-19 mg [...] Indication s: acute pain exenatide 2020-0 Yes [id number] 2mg inject 2 [facility] microsphere 3-19 mg [...] Indication s: acute pain exenatide 2020-0 Yes [id number] 2mg inject 2 [facility] microsphere 3-19 mg [...] Indication s: acute pain exenatide 2020-0 Yes [id number] 2mg inject 2 [facility] microsphere 3-19 mg [...] Indication s: acute pain exenatide 2020-0 Yes [id number] 2mg inject 2 [facility] microsphere 3-19 mg [...] Indication s: acute pain exenatide 2020-0 Yes [id number] 2mg inject 2 [facility] microsphere 3-19 mg [...] Indication s: acute pain exenatide 2020-0 Yes [id number] 2mg inject 2 [facility] microsphere 3-19 mg [...] Indication s: acute pain exenatide 2020-0 Yes [id number] 2mg inject 2 [facility] microsphere 3-19 mg [...] Indication s: acute pain exenatide 2020-0 Yes [id number] 2mg inject 2 [facility] microsphere 3-19 mg [...] Indication s: acute pain exenatide 2020-0 Yes [id number] 2mg inject 2 [facility] microsphere 3-19 mg [...] Indication s: acute pain exenatide 2020-0 Yes [id number] 2mg inject 2 [facility] microsphere 3-19 mg [...] Indication s: acute pain exenatide 2020-0 Yes [id number] 2mg inject 2 [facility] microsphere 3-19 mg [...] Indication s: acute pain exenatide 2020-0 Yes [id number] 2mg inject 2 [facility] microsphere 3-19 mg [...] Indication s: acute pain exenatide 2020-0 Yes [id number] 2mg inject 2 [facility] microsphere 3-19 mg [...] (scale 4-6). Indication s: acute pain exenatide 2021-0 Yes [id number] 2mg inject 2 [facility] microsphere 3-19 mg [...] (scale 4-6). Indication s: acute pain exenatide 202-0 Yes [id number] 2mg inject 2 [facility] microsphere 3-19 mg [...] Indication s: acute pain exenatide 2020-0 Yes [id number] 2mg inject 2 [facility] microsphere 3-19 mg [...] Indication s: acute pain exenatide 2020-0 Yes [id number] 2mg inject 2 [facility] microsphere 3-19 mg [...] (scale 4-6). Indication s: acute pain exenatide 2021-0 Yes [id number] 2mg inject 2 [facility] microsphere 3-19 mg under ity of s 2 mg 00:00: the skin [place] injection 00 every 7 Medical (seven) Branch days. traMADoL 50 1-0 Yes [id number] 50mg Take 1 Univ ers mg tablet 3-19 tablet by ity o f 00:00: mouth [place] 00 every 6 Medical (six) Branch hours as needed for Pain (scale 4-6). Indication s: acute pain exenatide 2021-0 Yes [id number] 2mg inject 2 [facility] microsphere 3-19 mg [...] Indication s: acute pain exenatide 2020-0 Yes [id number] 2mg inject 2 [facility] microsphere 3-19 mg [...] Indication s: acute pain exenatide 2020-0 Yes [id number] 2mg inject 2 [facility] microsphere 3-19 mg [...] (scale 4-6). Indication s: acute pain exenatide 1-0 Yes [id number] 2mg inject 2 [facility] microsphere 3-19 mg under ity of s 2 mg 00:00: the skin [place] injection 00 every 7 Medical (seven) Branch days. traMADoL 50 1-0 Yes [id number] 50mg Take 1 Univ ers mg tablet 3-19 tablet by ity o f 00:00: mouth [place] 00 every 6 Medical (six) Branch hours as needed for Pain (scale 4-6). Indication s: acute pain exenatide 1-0 Yes [id number] 2mg inject 2 [facility] microsphere 3-19 mg [...] (scale 4-6). Indication s: acute pain exenatide 0 Yes [id number] 2mg inject 2 [facility] microsphere 3-19 mg [...] (scale 4-6). Indication s: acute pain exenatide 0 Yes [id number] 2mg inject 2 [facility] microsphere 3-19 mg under ity of s 2 mg 00:00: the skin [place] injection 00 every 7 Medical (seven) Branch days. traMADol 50 2019-0 Yes [id number] 50mg Take 1 [facility] mg tablet 2-26 [id number] tablet by ity of 00:00: mouth [place] 00 every 6 Medical (six) Branch hours as needed (pain). exenatide 2019-0 Yes [id number] 2mg inject 2 [facility] microsphere 2-26 mg under ity of s 2 mg 00:00: the skin [place] injection 00 every 7 Medical (seven) Branch days. metFORMIN 2020-0 Yes 500mg Take 500 Uni vers 500 mg 1-31 mg by ity of tablet 20:46: mouth [address] [place] [address] (two) Medical times Branch daily with meals. atorvastati 2020-0 Yes 40mg Take 40 mg Univers n 40 mg 1-31 by mouth ity of tablet 20:46: at [place] [address] bedtime. Medical Branch pioglitazon 2020-0 Yes 30mg Take 30 mg Univers e 30 mg 1-31 by mouth ity of tablet 20:46: daily. [place] [address] Medical Branch glipiZIDE 2020-0 Yes 10mg Take 10 mg Un senthil 10 mg 1-31 by mouth ity of tablet 20:46: daily. [place] [address] Medical Branch metFORMIN 2020-0 Yes 500mg Take 500 Uni vers 500 mg 1-31 mg by ity of tablet 20:46: mouth 2 [place] [address] (two) Medical times [place] daily with meals. atorvastati 2020-0 Yes 40mg Take 40 mg Univers n 40 mg 1-31 by mouth ity of tablet 20:46: at [place] [address] bedtime. Medical Branch pioglitazon 2020-0 Yes 30mg Take 30 mg Univers e 30 mg 1-31 by mouth ity of tablet 20:46: daily. [address] Branch glipiZIDE 2020-0 Yes 10mg Take 10 mg Un senthil 10 mg 1-31 by mouth ity of tablet 20:46: daily. [address] Branch metFORMIN 2020-0 Yes 500mg Take 500 Uni vers 500 mg 1-31 mg by ity of tablet 20:46: mouth 2 [place] [address] ([facility]) [facility] times [place] daily with meals. atorvastati 2020-0 Yes 40mg Take 40 mg Univers n 40 mg 1-31 by mouth ity of tablet 20:46: at [place] [address] bedtime. Medical Branch pioglitazon 2020-0 Yes 30mg Take 30 mg Univers e 30 mg 1-31 by mouth ity of tablet 20:46: daily. [place] [address] Medical Branch glipiZIDE 2020-0 Yes 10mg Take 10 mg Un senthil 10 mg 1-31 by mouth ity of tablet 20:46: daily. [address] metFORMIN 2020-0 Yes 500mg Take 500 Uni vers 500 mg 1-31 mg by ity of tablet 20:46: mouth 2 [place] [address] ([facility]) [facility] times [place] daily with meals. atorvastati 2020-0 Yes 40mg Take 40 mg Univers n 40 mg 1-31 by mouth ity of tablet 20:46: at [place] [address] bedtime. Medical Branch pioglitazon 2020-0 Yes 30mg Take 30 mg Univers e 30 mg 1-31 by mouth ity of tablet 20:46: daily. [address] Branch glipiZIDE 2020-0 Yes 10mg Take 10 mg Un senthil 10 mg 1-31 by mouth ity of tablet 20:46: daily. [address] metFORMIN 2020-0 Yes 500mg Take 500 Uni vers 500 mg 1-31 mg by ity of tablet 20:46: mouth 2 [place] [address] ([facility]) Medical times [place] daily with meals. atorvastati 2020-0 Yes 40mg Take 40 mg Univers n 40 mg 1-31 by mouth ity of tablet 20:46: at [place] [address] bedtime. Medical Branch pioglitazon 2020-0 Yes 30mg Take 30 mg Univers e 30 mg 1-31 by mouth ity of tablet 20:46: daily. [place] [address] Medical Branch glipiZIDE 2020-0 Yes 10mg Take 10 mg Un senthil 10 mg 1-31 by mouth ity of tablet 20:46: daily. [address] Branch metFORMIN 2020-0 Yes 500mg Take 500 Uni vers 500 mg 1-31 mg by ity of tablet 20:46: mouth 2 [place] [address] (two) Medical times Branch daily with meals. atorvastati 2020-0 Yes 40mg Take 40 mg Univers n 40 mg 1-31 by mouth ity of tablet 20:46: at [place] [address] bedtime. Medical Branch pioglitazon 2020-0 Yes 30mg Take 30 mg Univers e 30 mg 1-31 by mouth ity of tablet 20:46: daily. [address] glipiZIDE 2020-0 Yes 10mg Take 10 mg Un senthil 10 mg 1-31 by mouth ity of tablet 20:46: daily. [place] [address] Medical [place] metFORMIN 2020-0 Yes 500mg Take 500 Uni vers 500 mg 1-31 mg by ity of tablet 20:46: mouth 2 [place] [address] (two) Medical times [place] daily with meals. atorvastati 2020-0 Yes 40mg Take 40 mg Univers n 40 mg 1-31 by mouth ity of tablet 20:46: at [place] [address] bedtime. Medical Branch pioglitazon 2020-0 Yes 30mg Take 30 mg Univers e 30 mg 1-31 by mouth ity of tablet 20:46: daily. [place] [address] Medical Branch glipiZIDE 2020-0 Yes 10mg Take 10 mg Un senthil 10 mg 1-31 by mouth ity of tablet 20:46: daily. [place] [address] Medical Branch amoxicillin 2020-0 Yes [id number] 1{tbl} Take 1 Univers -clavulanat 1- [id number] tablet by i ty of e 00:00: mouth 2 [place] (AUGMENTIN) 00 (two) Medical 875-125 mg times Branch per tablet daily. sulfamethox 2020-0 Yes [id number] 1{tbl} Take 1 Univers azole-trime 1- [id number] tablet by i ty of thoprim 00:00: mouth 2 [place] 800-160 mg 00 (two) Medical per tablet times Branch daily. traMADol 50 2020-0 Yes [id number] 50mg Take 1 Univers mg tablet 1-31 [id number] tablet by ity of 00:00: mouth [place] 00 every 6 Medical (six) Branch hours as needed (pain). amoxicillin 2020-0 Yes [id number] 1{tbl} Take 1 Univers -clavulanat 1-31 [id number] tablet by i ty of e 00:00: mouth 2 [place] (AUGMENTIN) 00 (two) Medical 875-125 mg times Branch per tablet daily. sulfamethox 2020-0 Yes [id number] 1{tbl} Take 1 [facility] azole-trime 1-31 [id number] tablet by i ty of thoprim 00:00: mouth 2 [place] 800-160 mg 00 (two) Medical per tablet times Branch daily. traMADol 50 2020-0 Yes [id number] 50mg Take 1 [facility] mg tablet 1- [id number] tablet by ity of 00:00: mouth [place] 00 every 6 Medical (six) Branch hours as needed (pain). amoxicillin 2020-0 Yes [id number] 1{tbl} Take 1 Univers -clavulanat 1-31 [id number] tablet by i ty of e 00:00: mouth 2 [place] (AUGMENTIN) 00 (two) Medical 875-125 mg times Branch per tablet daily. sulfamethox 2020-0 Yes [id number] 1{tbl} Take 1 Univers azole-trime 1-31 [id number] tablet by i ty of thoprim 00:00: mouth 2 [place] 800-160 mg 00 (two) Medical per tablet times Branch daily. traMADol 50 2020-0 Yes [id number] 50mg Take 1 Univers mg tablet 1- 356593 tablet by ity of 00:00: mouth [place] 00 every 6 Medical (six) Branch hours as needed (pain). amoxicillin 2020-0 Yes [id number] 1{tbl} Take 1 Univers -clavulanat 1-31 [id number] tablet by i ty of e 00:00: mouth 2 [place] (AUGMENTIN) 00 (two) Medical 875-125 mg times Branch per tablet daily. sulfamethox 2020-0 Yes [id number] 1{tbl} Take 1 Univers azole-trime 1-31 [id number] tablet by i ty of thoprim 00:00: mouth 2 [place] 800-160 mg 00 (two) Medical per tablet times Branch daily. traMADol 50 2020-0 Yes [id number] 50mg Take 1 Univers mg tablet 11-25 [id number] tablet by ity of 00:00: mouth [place] 00 every 6 Medical (six) Branch hours as needed (pain). amoxicillin 2020-0 Yes [id number] 1{tbl} Take 1 Univers -clavulanat - 125650 tablet by i ty of e 00:00: mouth 2 [place] (AUGMENTIN) 00 (two) Medical 875-125 mg times Branch per tablet daily. sulfamethox 2020-0 Yes [id number] 1{tbl} Take 1 Univers azole-trime - [id number] tablet by i ty of thoprim 00:00: mouth 2 [place] 800-160 mg 00 (two) Medical per tablet times Branch daily. traMADol 50 2020-0 Yes [id number] 50mg Take 1 Univers mg tablet 11-25 [id number] tablet by ity of 00:00: mouth [place] 00 every 6 Medical (six) Branch hours as needed (pain). amoxicillin 2020-0 Yes [id number] 1{tbl} Take 1 [facility] -clavulanat - [id number] tablet by i ty of e 00:00: mouth 2 [place] (AUGMENTIN) 00 (two) Medical 875-125 mg times Branch per tablet daily. sulfamethox 2020-0 Yes [id number] 1{tbl} Take 1 Univers azole-trime 11-25 [id number] tablet by i ty of thoprim 00:00: mouth 2 [place] 800-160 mg 00 (two) Medical per tablet times Branch daily. traMADol 50 2020-0 Yes [id number] 50mg Take 1 [facility] mg tablet 11-25 [id number] tablet by ity of 00:00: mouth [place] 00 every 6 Medical (six) Branch hours as needed (pain). amoxicillin 2020-0 2020- No [id number] 1{tbl} Take 1 Univers -clavulanat -12-21 [id number] tablet by ity of e 00:00: 00:00 mouth 2 [place] (AUGMENTIN) 00 :00 (two) Medical 875-125 mg times Branch per tablet daily. sulfamethox 2020-0 2020- No [id number] 1{tbl} Take 1 [facility] azole-trime -12-21 [id number] tablet by ity of thoprim 00:00: 00:00 mouth 2 [place] 800-160 mg 00 :00 (two) Medical per tablet times Branch daily. traMADol 50 2019- No [id number] 50mg Take 1 [facility] mg tablet 11-25 [id number] tablet by it y of 00:00: 00:00 mouth [place] 00 :00 every 6 Medical (six) Branch hours as needed (pain). No known No Univers medications [facility] Vital Signs Vital Name Observation Time Observation Value Comments Source Systolic blood 2019-12-21 17:49:00 110 mm[Hg] Univer sity [facility] Diastolic blood 2019-12-21 17:49:00 41 mm[Hg] Unive rsity [facility] Heart rate 2019-12-21 17:49:00 79 /min [facility] [place] [facility] Body temperature 2019-12-21 17:49:00 36.78 Yesenia [facility] Respiratory rate 2019-12-21 17:49:00 18 /min [facility] Procedures Procedure Date / Time Performing Clinician Source Performed ASSIGNMENT OF BENEFITS 2022-03-26 12:52:53 Doctor Unassigned, No [facility] REFERRAL- 2022-03-12 05:01:00 [facility]ON[facility] PATIENT QUESTIONNAIRE 2019-11-22 06:01:00 Doctor Unassigned, No [facility] REFERRAL- 2019-11-11 06:01:00 [facility]RESPONSE Name [facility] Encounters Start End Encounter Admission Attending Care Care Encounter Source Date/Time Date/Time Type Type Clinicians Facility Department ID 2021-08-23 Emergency [facility] [id number] Univers 14:59:58 [facility] 2019-11-28 Outpatient [facility] [id number] [facility] 08:29:26 2022-08-21 2022-08-21 Outpatient Arleth DURAN [facility] [id number] Univers 08:00:00 09:19:07 JULISA nix [facility] [place] [facility] 2022-08-21 2022-08-21 Ancillary Veronica Truong [facility] 1.2.840 .114 [id number] Univers 08:00:00 09:19:07 Visit Julisa Duran [id number] ity [place] [id number] [phone] La dical NAL 179 Branch BUILDING 2022-08-14 2022-08-14 Ancillary Veronica Truong [facility] 1.2.840 .114 [id number] Univers 08:00:00 09:36:02 Visit Julisa Duran [id number] [place]y [id number] [phone] La dical NAL 179 Branch BUILDING 2022-08-07 2022-08-07 Ancillary Veronica Truong [facility] 1.2.840 .114 [id number] Univers 08:00:00 09:00:00 Visit Julisa Duran [id number] [place]y [id number] [phone] La dical NAL 179 Branch BUILDING 2022-07-17 2022-07-17 Ancillary Veronica Truong [facility] 1.2.840 .114 [id number] Univers 08:00:00 10:33:07 Visit Julisa Duran [id number] [place]y [place] [id number] [phone] La dical NAL 179 Branch BUILDING 2022-07-11 2022-07-11 Ancillary Veronica Truong [facility] 1.2.840 .114 [id number] Univers 08:00:00 09:09:53 Visit Julisa Duran [id number] [place] [phone] La dical NAL 179 Branch BUILDING 2022-07-09 2022-07-09 Ancillary Veronica Truong [facility] 1.2.840 .114 [id number] Univers 08:00:00 09:22:42 Visit Julisa Duran [id number] [id number] [phone] La dical NAL 179 Branch BUILDING 2022-07-03 2022-07-03 Ancillary Veronica Truong [facility] 1.2.840 .114 [id number] Univers 08:00:00 09:28:51 Visit Julisa Duran Manuel FAJARDO 350.1.13.10 [place]y [place] [phone] La dical NAL 179 [facility] 2022-07-01 2022-07-01 Outpatient R RENEE [facility] [id number] Univers 08:00:00 09:42:36 JULISA ity of [facility] 2022-07-01 2022-07-01 Ancillary Veronica Truong [facility] 1.2.840 .114 [id number] Univers 08:00:00 09:42:36 Visit Julisa Duran Manuel FAJARDO 350.1.13.10 [place] 4[place] [phone] La dical NAL 179 [facility] 2022-06-25 2022-06-25 Ancillary Veronica Truong [facility] 1.2.840 .114 [id number] Univers 08:00:00 10:05:28 Visit Julisa Duran Manuel FAJARDO 350.1.13.10 [place]y [id number] [phone] La dical NAL 179 [facility] 2022-06-20 2022-06-20 Ancillary Veronica Truong [facility] 1.2.840 .114 [id number] Univers 08:00:00 09:40:30 Visit Julisa Duran 350.1.13.10 [place]y [place] [phone] La dical NAL 179 Branch [facility] 2022-06-18 2022-06-18 Ancillary Veronica Truong [facility] 1.2.840 .114 [id number] Univers 08:00:00 09:36:15 Visit DuranJulisa Manuel FAJARDO 350.1.13.10 [place]y [place] 4[place] [phone] La dical NAL 179 Branch BUILDING 2022-06-13 2022-06-13 Ancillary Veronica Truong [facility] 1.2.840 .114 [id number] Univers 08:00:00 08:45:00 Visit Duran Julisa FAJARDO 350.1.13.10 [place]y [id number] [phone] La dical NAL 179 Branch BUILDING 2022-06-10 2022-06-10 Ancillary Veronica Truong [facility] 1.2.840 .114 [id number] Univers 08:45:00 09:30:00 Visit Duran Julisa FAJARDO 350.1.13.10 [place]y [place] 4[place] [phone] La dical NAL 179 Branch BUILDING 2022-06-06 2022-06-06 Ancillary Veronica Truong [facility] 1.2.840 .114 [id number] Univers 08:00:00 10:23:06 Visit Julisa Duran 350.1.13.10 [place] [phone] La dical NAL 179 Branch BUILDING 2022-06-04 2022-06-04 Ancillary Veronica Truong [facility] 1.2.840 .114 [id number] Univers 08:00:00 09:29:06 Visit Julisa Duran 350.1.13.10 [place]y [place] [phone] La dical NAL 179 Branch BUILDING 2022-05-30 2022-05-30 Ancillary Veronica Truong [facility] 1.2.840 .114 [id number] Univers 08:00:00 10:18:46 Visit Julisa Duran 350.1.13.10 [place]y of [place] 4[place] [phone] La dical NAL 179 Branch BUILDING 2022-05-28 2022-05-28 Earl D[facility]AN [facility] [id number] Univers 08:00:00 10:30:25 JULISA ity of [facility] 2022-05-28 2022-05-28 Ancillary Veronica Truong [facility] 1.2.840 .114 [id number] Univers 08:00:00 08:45:00 Visit Julisa Duran SCOTTY 350.1.13.10 [facility]y [facility] [id number] [phone] La dical NAL 179 Branch [facility] 2022-05-23 2022-05-23 Ancillary Veronica Truong [facility] 1.2.840 .114 [id number] Univers 08:00:00 09:06:40 Visit Renee Julisa FAJARDO [id number] ity of [facility] [id number] [phone] La dical NAL 179 [facility] 2022-05-09 2022-05-09 Ancillary Veronica Truong [facility] 1.2.840 .114 [id number] Univers 09:30:00 10:33:51 Visit Renee Julisa Manuel FAJARDO 350.1.13.10 [place] [phone] La dical NAL 179 [facility] 2022-05-07 2022-05-07 Ancillary Veronica Truong [facility] 1.2.840 .114 [id number] Univers 10:15:00 11:02:32 Visit Julisa Duran 350.1.13.10 ity [facility] [id number] [phone] La dical NAL 179 [facility] 2022-05-05 2022-05-05 Vita Lance MASHINE 1.2.840.114 [id number] Univers 00:00:00 00:00:00 Logan FAJARDO 350.1.13.10 i ty of [place] 4[place]2.[place] [phone] La dical NAL 044 [facility] 2022-05-05 2022-05-05 Vita Lance MASHINE 1.2.840.114 [id number] Univers 00:00:00 00:00:00 Logan FAJARDO 350.1.13.10 i ty of [facility] [id number] [phone] La dical NAL 044 [facility] 2022-04-30 2022-04-30 Outpatient R RENEE [facility] [id number] Univers 08:45:00 08:45:00 JULISA ity of [facility] 2022-04-30 2022-04-30 Case Alexi [facility] 1.2.840.114 [id number] Univers 00:00:00 00:00:00 Management Veronica FAJARDO 350.1.13.10 ity [facility] [id number] [phone] La dical NAL 179 [facility] 2022-04-24 2022-04-24 Ancillary Veronica Truong [facility] 1.2.840 .114 [id number] Univers 14:30:00 15:42:45 Visit Julisa Duran 350.1.13.10 [facility] 4.2.7.2.[place] [phone] La dical NAL 179 [facility] 2022-04-17 2022-04-17 Ancillary Veronica Turong [facility] 1.2.840 .114 [id number] Univers 08:00:00 09:00:00 Visit Julisa Duran 350.1.13.10 ity [facility] [id number] [phone] La dical NAL 179 [facility] 2022-04-11 2022-04-11 Ancillary Alexi Veronica K [facility] 1.2.840 .114 [id number] Univers 08:00:00 09:00:00 Visit Julisa Duran [id number] it[facility] [id number] [phone] La dical NAL 179 [facility] 2022-04-09 2022-04-09 Ancillary Veronica Truong [facility] 1.2.840 .114 [id number] Univers 08:00:00 09:00:00 Visit Julisa Duran 350.1.13.10 ity of [place] 4[place] [phone] La dical NAL 179 [facility] 2022-04-04 2022-04-04 Ancillary Veronica Truong [facility] 1.2.840 .114 [id number] Univers 08:00:00 09:00:00 Visit Julisa Duran [id number] [facility] [id number] [phone] La dical NAL 179 [facility] 2022-04-01 2022-04-01 Ancillary Veronica Truong [facility] 1.2.840 .114 [id number] [facility] 08:00:00 09:00:00 Visit Julisa Duran [id number] ity [facility] [id number] [phone] [facility] 2022-03-26 2022-03-26 Outpatient R R[facility]EE [facility] [id number] Univers 08:00:00 10:37:03 JULISA ity of [facility] 2022-03-26 2022-03-26 Ancillary Niyah Mckeon [facility] 1 .2.840.114 [id number] Univers 08:00:00 10:37:03 Visit Julisa Duran 350.1.13.10 it[place] of [place] [phone] La dical NAL 179 [facility] 2022-03-26 2022-03-26 Orders Doctor NICKERSON 1.2.840.114 [id number] Univers 00:00:00 00:00:00 Only Unassigned, DANIELA [id number] [facility] 4.2.7.2.686 [place] as [phone] [address] 2022-03-12 2022-03-12 Orders Doctor NICKERSON 1.2.840.114 [id number] Univers 00:00:00 00:00:00 Only Unassigned, DANIELA 350.1.13.[address] [facility] 4.2.7.2.686 [place] as [phone] [address] 2022-02-10 2022-02-10 [facility] 1.2.840.114 [id number] Univers 00:00:00 00:00:00 Logan FAJARDO 350.1.13.10 i ty of [facility] [facility] [id number] [phone] [facility] NAL [address] [place] [address] 2021-11-29 2021-11-29 [facility] 1.2.840.114 [id number] Univers 00:00:00 00:00:00 Logan FAJARDO [id number] i ty of yoselin [facility] [id number] [phone] [address] 2021-09-12 2021-09-12 [facility] 1.2.840.114 [id number] Univers 00:00:00 00:00:00 Logan FAJARDO [id number] i ty of yoselin [facility] [id number] [phone] La dicmo NAL [address] [place] [address] 2021-08-19 2021-08-19 [facility] 1.2.840.114 [id number] Univers 00:00:00 00:00:00 Logan Fajardo [id number] i ty of [id number] [phone] [address] 2021-08-13 2021-08-13 [facility] 1.2.840.114 [id number] Univers 00:00:00 00:00:00 Logan Fajardo [id number] i ty of [id number] [phone] [address] 2021-07-13 2021-07-13 [facility] 1.2.840.114 [id number] Univers 00:00:00 00:00:00 Logan Ayalaton [id number] i ty of [id number] [phone] La jodi michael 044 [facility] 2021-06-24 2021-06-24 [facility] 1.2.840.114 [id number] Univers 00:00:00 00:00:[address] [facility] [id number] it y of Paddy Fajardo [id number] Geo as Jak?Blea [phone] La jodi yadav [address] [place] [address] Medical Office [facility] 2020-09-05 2020-09-05 Outpatient Arleth [facility] [id number] Univers 10:15:00 10:15:00 LOGAN [facility] 2020-06-25 2020-06-25 Outpatient Arleth ALANIZ [facility] [id number] Univers 11:40:00 11:40:00 KATE nix [facility] 2020-06-06 2020-06-06 Outpatient Arleth [facility] [id number] Univers 15:45:00 15:45:00 LOGAN [facility] 2020-05-09 2020-05-09 Outpatient Arleth [facility] [id number] Univers 16:15:00 16:15:00 LOGAN nix [facility] 2020-03-20 2020-03-20 Outpatient Arleth [facility] [id number] Univers 09:15:00 09:15:00 LOGAN nix [facility] 2020-01-25 2020-01-25 Outpatient Arleth DURAN [facility] [id number] Univers 11:00:00 11:00:00 JULISA asher [facility] 2019-12-29 2019-12-29 Outpatient Arleth DURAN [facility] [id number] Univers 09:20:00 09:20:00 JULISA [facility] 2019-12-21 2019-12-21 Office [facility] 1.2.840.114 [id number] Univers 11:42:25 11:57:[address] [facility] [id number] it y of Paddy Fajardo [id number] [place] as Professio [phone] La dical nal 044 [facility] 2019-12-21 2019-12-21 Outpatient R NATALIO [facility] [id number] Univers 11:30:00 11:30:00 LOGAN ity of [facility] 2019-12-20 2019-12-20 Outpatient R [facility] [id number] Univers 09:00:00 09:00:00 ity of [facility] 2019-12-16 2019-12-16 Ancillary Veronica Truong [facility] 1.2.840 .114 [id number] Univers 10:07:00 11:07:00 Visit Julisa Duran [place] [id number] it[id number] [phone] La dical nal 179 [facility] 2019-12-14 2019-12-14 Ancillary Veronica Truong [facility] 1.2.840 .114 [id number] Univers 09:52:14 10:52:14 Visit Renee Julisa Manuel [place] [id number] ity [id number] [phone] La dical nal 179 [facility] 2019-12-09 2019-12-09 Ancillary Veronica Truong [facility] 1.2.840 .114 [id number] Univers 08:52:58 10:16:26 Visit DuranJulisa [place] [id number] ity [id number] [phone] La dical nal 179 [facility] 2019-12-07 2019-12-07 Ancillary Veronica Truong [facility] 1.2.840 .114 [id number] Univers 08:58:57 09:58:57 Visit Duran Julisa Ayalaton [id number] [id number] [phone] La dical nal 179 [facility] 2019-12-02 2019-12-02 Ancillary Veronica Truong [facility] 1.2.840 .114 [id number] Univers 08:47:35 09:47:35 Visit Duran, Julisa Fajardo [id number] ity of [id number] [phone] La dical nal 179 [facility] 2019-11-18 2019-11-30 Ancillary Nicolasa Castillo [facility] 1.2.840. 114 [id number] Univers 09:11:00 12:53:31 Visit Duran Julisa Fajardo [id number] [place] of [id number] [phone] La dical nal 179 [facility] 2019-11-30 2019-11-30 Ancillary Veronica Truong [facility] 1.2.840 .114 [id number] [facility] 08:42:50 09:42:50 Visit Duran Julisa Fajardo [id number] [id number] [phone] La dical nal 179 [facility] 2019-11-24 2019-11-24 Ancillary Veronica Truong [facility] 1.2.840 .114 [id number] Univers 08:48:05 15:06:52 Visit Renee Julisa Fajardo [id number] [id number] [phone] La dical nal 179 [facility] 2019-11-22 2019-11-22 Ancillary Veronica Truong [facility] 1.2.840 .114 [id number] Univers 08:37:05 11:36:52 Visit Julisa Duran Manuel Fajardo [id number] [id number] [phone] La dical nal 179 [facility] 2019-11-22 2019-11-22 Orders Doctor NICKERSON 1.2.840.114 [id number] Univers 00:00:00 00:00:00 Only Unassigned, DANIELA [id number] ity of [place] [facility] [id number] Geo as [phone] [address] 2019-11-11 2019-11-11 Orders Doctor LIYA 1.2.840.114 [id number] 00:00:00 00:00:00 Only Unassigned, DANIELA [id number] ity of [place] [facility] [id number] [place] as [phone] [address] 2019-10-30 2019-10-30 Inpatient E [facility] [id number] [facility] 03:07:00 15:15:00 Results This patient has no known results.
[2023-03-23] MEDS ORDERED: HYDROMORPHONE HCL 1 MG/ML INJ ONE ×2 (19:25→22:32)
[2023-03-23] MEDS ORDERED: ONDANSETRON 4 MG/2 ML VIAL ONE (19:29)
[2023-03-23 20:05] LABS: Absolute Lymphocytes (CBC) 0.7 K/uL (0.7-4.9); Hematocrit 32.9 % (39.6-49.0); Lymphocytes % 5.1 % (15.3-44.8); MCV 75.2 fL (80-100); MPV 10.6 fL (7.6-11.3); RBC Red Blood Cell Count 4.38 M/uL (4.33-5.43)
[2023-03-23 20:09] LABS: Bilirubin Total 1.1 mg/dL (0.2-1.0); Potassium 3.5 mEq/L (3.5-5.1); Protein, Total 7.5 g/dL (6.4-8.2)
--- NOTE | 2023-03-23 20:58 | RAD REPORT ---
EXAM DESCRIPTION: RAD - Hip Right 2 View - 03/23/2023 8:41 pm CLINICAL HISTORY: PAIN COMPARISON: No comparisons FINDINGS: Fine bony detail is obscured by patient's body habitus. No acute fracture. No malalignment. Moderate left acetabular degenerative changes. IMPRESSION: No acute osseous abnormality involving the left hip.
--- NOTE | 2023-03-23 20:59 | RAD REPORT ---
EXAM DESCRIPTION: RAD - Pelvis - 03/23/2023 8:41 pm CLINICAL HISTORY: right hip pain COMPARISON: No comparisons FINDINGS/IMPRESSION: The fine bony detail is obscured due to patient's body habitus. No displaced fr actures identified however a nondisplaced or mildly displaced fracture would be difficult to exclude given the limitations. Both hips do appear located.
[2023-03-23] MEDS ORDERED: NA CHLORIDE 0.9% 1,000 ML ONE (21:24)
--- NOTE | 2023-03-23 22:03 | RAD REPORT ---
EXAM DESCRIPTION: CTAbdomen Pelvis W Contrast - 03/23/2023 9:37 pm CLINICAL HISTORY: ABD PAIN COMPARISON: No comparisons TECHNIQUE: CT of the abdomen and pelvis was performed. All CT scans are performed using dose optimization technique as appropriate and may include automated exposure control or mA/KV adjustment according to patient size. FINDINGS: Lower chest: Probable dependent atelectasis. Liver: Hepatic steatosis Biliary: No biliary ductal dilatation. Cholelithiasis Stomach: No significant focal abnormality. Duodenum: No significant focal abnormality. Pancreas: No significant abnormality. Spleen: No significant abnormality. Adrenal: No suspicious lesions. Kidney/ureter: No hydronephrosis. No renal calculi. Low-density renal lesions that are too small to c haracterize but statistically benign. Retroperitoneum: No retroperitoneal adenopathy. Vascular: No aneurysm. Bowel: No significant focal abnormality. Peritoneum: No ascites or free air. Bladder: Grossly unremarkable. Reproductive: No adnexal masses. Bones: No acute fracture. Ankylosis of the sacroiliac joints and throughout the spine consistent with ankylosing spondylitis. Other: n/a IMPRESSION: No acute intra-abdominal or pelvic finding. Ankylosing spondylitis. Other incidental findings as noted above.
--- NOTE | 2023-03-23 22:31 | ER ---
Nurse's Notes [facility] Name: Tej Fragoso Age: 57 yrs Sex: Male : 1965 Arrival Date: 03/23/2023 Time: 18:57 Bed 17 Private MD: Diagnosis: Cellulitis and acute lymphangitis of other parts of limb-left leg;Sepsis, unspecified organism Presentation: 03/23 18:58 Chief complaint: EMS states: Left hip pain since yesterday, no known injury. Given nj1 zofran odt for nausea per EMS. 18:58 Coronavirus screen: Vaccine status: Patient reports receiving the 2nd dose of the covid nj1 vaccine. Ebola Screen: Patient denies travel to an Ebola-affected area in the 21 days before illness onset. Initial Sepsis Screen: Does the patient meet any 2 criteria? HR > 90 bpm. No. Patient's initial sepsis screen is negative. Does the patient have a suspected source of infection? No. Patient's initial sepsis screen is negative. Risk Assessment: Do you want to hurt yourself or someone else? Patient reports no desire to harm self or others. Onset of symptoms was March 22, 2023. 18:58 Method Of Arrival: EMS: [facility] 18:58 Acuity: DAVID 3 nj1 18:58 Care prior to arrival: Medication(s) given: zofran. nj1 19:05 Chief complaint: Patient's son or daughter states: Vomiting and diarrhea since nj1 yesterday. Pt denies abdominal pain at this time. States he is slightly nauseous, but EMS gave him something for it. Pt also co left leg redness that he noted yesterday. Historical: - Allergies: 18:58 No Known Allergies; nj1 - PMHx: 18:58 Sleep apnea; Lymphedema; Diabetes mellitus; nj1 - PSHx: 18:58 R AKA; nj1 - Immunization history:: Client reports receiving the 2nd dose of the Covid vaccine. - Social history:: Smoking status: Patient denies any tobacco usage or history of. Screenin:56 [facility] ED Fall Risk Assessment (Adult) Score/Fall Risk Level 0 - 2 = Low Risk. Abuse as6 screen: Denies threats or abuse. Denies injuries from another. Nutritional screening: No deficits noted. Tuberculosis screening: No symptoms or risk factors identified. Assessment: 19:20 General: Appears uncomfortable, obese, Behavior is calm, cooperative. Pain: Complains as6 of pain in left hip and left leg. Neuro: Level of Consciousness is awake, alert, obeys commands, Oriented to person, place, time, situation. Cardiovascular: Edema is 4+ to left upper thigh, left lower thigh, left knee, left midcalf, left ankle, left foot and left toes pitting to left lower thigh, left knee, left midcalf, left ankle, left foot and left toes. Respiratory: Respiratory effort is even, unlabored, Respiratory pattern is regular, symmetrical. GI: Reports nausea, vomiting. Derm: lymphedema to left lower extremity, skin is moist and slightly macerated. weeping LLE. Musculoskeletal: Amputation of right leg. 22:04 Reassessment: Patient appears in no apparent distress at this time. pt still c/o pain as6 to LLE, provider notified. Vital Signs: 18:58 BP 145 / 70; Pulse 107; Resp 20; Temp 99.7(O); Pulse Ox 90% on R/A; Weight 172.37 kg; nj1 Height 6 ft. 0 in. ; Pain 10/10; 20:05 BP 110 / 65; Pulse 107; Resp 18; Pulse Ox 93% on 3 lpm NC; as6 21:00 BP 156 / 79; Pulse 107; Resp 18 S; Pulse Ox 93% on 3 lpm NC; as6 22:01 BP 117 / 60; Pulse 107; Resp 18 S; Pulse Ox 90% on 3 lpm NC; as6 22:51 BP 131 / 60; Pulse 105; Resp 18 S; Pulse Ox 93% on 3 lpm NC; as6 18:58 Body Mass Index 51.54 (172.37 kg, 182.88 cm) nj1 18:58 Pain Scale: Adult mo1 ED Course: 18:58 Arm band placed on. nj1 19:02 Patient arrived in ED. ld1 19:06 Venkatesh Perez PA is PHCP. cp 19:06 Awais Magallon MD is Attending Physician. cp 19:07 Notified Nurse Practitioner and/or Physician Weights And Measures Inspector of Patients and patients nj1 daughter's newly disclosed concerns. See chief complaint documentation. 19:11 Antonio Durán, JUANJO is Primary Nurse. as6 19:16 Triage completed. nj1 19:35 Inserted saline lock: 20 gauge in right antecubital area, using aseptic technique. as6 Blood collected. ultrasound guided, long catheter. 19:56 Bed in low position. Call light in reach. Side rails up X2. as6 20:43 XRAY Hip RIGHT 2 view In Process Unspecified. EDMS 20:43 XRAY Pelvis In Process Unspecified. EDMS 21:39 CT Abd/Pelvis - IV Contrast Only In Process Unspecified. EDMS 22:28 Zhou Drake MD is Hospitalizing Provider. cp 22:51 No provider procedures requiring assistance completed. Patient admitted, IV remains in as6 place. Administered Medications: 19:40 Drug: HYDROmorphone IVP 1 mg Route: IVP; Site: right antecubital; as6 23:03 Follow up: Response: No adverse reaction as6 19:40 Drug: Ondansetron IVP 4 mg Route: IVP; Site: right antecubital; as6 23:03 Follow up: Response: No adverse reaction as6 21:48 Drug: NS 0.9% IV 500 ml Route: IV; Rate: bolus; Site: right antecubital; as6 23:03 Follow up: Response: No adverse reaction; IV Status: Completed infusion; IV Intake: as6 500ml 22:43 Drug: NS 0.9% IV 500 ml Route: IV; Rate: 100 ml/hr; Site: right antecubital; as6 23:04 Follow up: Response: No adverse reaction; IV Status: Infusion continued upon admission; as6 IV Intake: 50ml 22:43 Drug: HYDROmorphone IVP 1 mg Route: IVP; Site: right antecubital; as6 23:03 Follow up: Response: No adverse reaction as6 22:43 Drug: vancoMYCIN IVPB 1.5 grams Route: IVPB; Rate: calculated rate; Site: right as6 antecubital; 23:04 Follow up: Response: No adverse reaction; IV Status: Infusion continued upon admission; as6 IV Intake: 25ml 22:43 Drug: Rocephin IV 2 grams Route: IV; Rate: calculated rate; Site: right antecubital; as6 23:03 Follow up: Response: No adverse reaction; IV Status: Completed infusion; IV Intake: [id number] 22:43 Drug: Enoxaparin Sub-Q 100 mg Route: Sub-Q; Site: right lower abdomen; as6 23:03 Follow up: Response: No adverse reaction as6 Medication: 19:56 VIS not applicable for this client. as6 Intake: 23:03 IV: 500ml; Total: 500ml. as6 23:03 IV: 10ml; Total: 510ml. as6 23:04 IV: 25ml; Total: 535ml. as6 23:04 IV: 50ml; Total: 585ml. as6 Outcome: 22:30 Decision to Hospitalize by Provider. cp 22:51 Condition: stable as6 22:51 Instructed on the need for admit. 23:02 Admitted to Med/surg accompanied by tech, family with patient, via stretcher, room 224, as6 with oxygen, with chart, Report called to Lita GEIGER 23:25 Patient left the ED. mb9 Signatures: Dispatcher [employer] EDMS Venkatesh Perez PA PA cp Becky Damico RN RN ld1 Antonio Durán RN RN as6 Liliana Loomis, RN RN mb9 Constance Tracy, RN RN nj1
--- NOTE | 2023-03-23 22:31 | EDPHYS ---
Physician Documentation [facility] Name: Tej Fragoso Age: 57 yrs Sex: Male : 1965 Arrival Date: 03/23/2023 Time: 18:57 Bed 17 Private MD: ED Physician Awais Magallon HPI: 03/23 19:10 This 57 yrs old Male presents to ER via EMS with complaints of Left Upper Leg cp and Hip Pain. 19:10 The patient presents with pain, that is acute, tenderness. The complaints affect the cp left hamstring and left hip. 19:10 Context: resulted from an unknown cause. Onset: The symptoms/episode began/occurred cp yesterday, and became worse today. Associated signs and symptoms: Pertinent negatives fever, vomiting. Treatment prior to arrival includes: no previous treatment. Historical: - Allergies: 18:58 No Known Allergies; nj1 - PMHx: 18:58 Sleep apnea; Lymphedema; Diabetes mellitus; nj1 - PSHx: 18:58 R AKA; nj1 - Immunization history:: Client reports receiving the 2nd dose of the Covid vaccine. - Social history:: Smoking status: Patient denies any tobacco usage or history of. ROS: 19:15 Constitutional: Negative for body aches, chills, fever, poor PO intake. cp 19:15 Eyes: Negative for injury, pain, redness, and discharge. cp 19:15 ENT: Negative for ear pain, sore throat, difficulty swallowing, difficulty handling secretions. 19:15 Cardiovascular: Negative for chest pain. 19:15 Respiratory: Negative for cough, shortness of breath, wheezing. 19:15 Abdomen/GI: Negative for abdominal pain, vomiting, diarrhea, constipation. 19:15 MS/extremity: Positive for pain, paresthesias, tenderness, of the left hip and posterior left upper leg, Negative for injury. 19:15 Neuro: Negative for altered mental status, dizziness, headache, weakness. 19:15 All other systems are negative. Exam: 19:20 Constitutional: The patient appears in no acute distress, alert, awake, cp non-diaphoretic, non-toxic, well developed, well nourished, obese. 19:20 Head/Face: Normocephalic, atraumatic. cp 19:20 Eyes: Periorbital structures: appear normal, Conjunctiva: normal, no exudate, no injection, Sclera: no appreciated abnormality, Lids and lashes: appear normal, bilaterally. 19:20 ENT: External ear(s): are unremarkable, Nose: is normal, Mouth: Lips: moist, Oral mucosa: pink and intact, moist, Posterior pharynx: is normal, airway is patent, no erythema, no exudate. 19:20 Chest/axilla: Inspection: normal. 19:20 Cardiovascular: Rate: tachycardic, Rhythm: regular, JVD: is not appreciated. 19:20 Respiratory: the patient does not display signs of respiratory distress, Respirations: normal, no use of accessory muscles, no retractions, labored breathing, is not present, Breath sounds: are clear throughout, no decreased breath sounds, no stridor, no wheezing. 19:20 Abdomen/GI: Inspection: obese Palpation: abdomen is soft and non-tender, in all quadrants. 19:20 Back: pain, is absent, ROM is normal. 19:20 Musculoskeletal/extremity: Extremities: noted in the left leg: pain, marked lymphedema, left foot with multiple superficial wounds, marked pain to palpation posterior left upper leg, noted in the right leg: above the knee amputation. 19:20 Neuro: Orientation: to person, place \T\ time. Mentation: is normal. Vital Signs: 18:58 BP 145 / 70; Pulse 107; Resp 20; Temp 99.7(O); Pulse Ox 90% on R/A; Weight 172.37 kg; nj1 Height 6 ft. 0 in. ; Pain 10/10; 20:05 BP 110 / 65; Pulse 107; Resp 18; Pulse Ox 93% on 3 lpm NC; as6 21:00 BP 156 / 79; Pulse 107; Resp 18 S; Pulse Ox 93% on 3 lpm NC; as6 22:01 BP 117 / 60; Pulse 107; Resp 18 S; Pulse Ox 90% on 3 lpm NC; as6 22:51 BP 131 / 60; Pulse 105; Resp 18 S; Pulse Ox 93% on 3 lpm NC; as6 18:58 Body Mass Index 51.54 (172.37 kg, 182.88 cm) [facility] 18:58 Pain Scale: Adult [facility] MDM: 19:06 Patient medically screened. cp 22:30 Data reviewed: vital signs, nurses notes, lab test result(s), EKG, radiologic studies, cp plain films. 22:30 Management of patient was discussed with the following: Primary Care Provider: DR Noelle cardozo who will admit after discussion and wants Rocephin 2 grms bid scheduled. I considered the following discharge prescriptions or medication management in the emergency department Medications were administered in the Emergency Department. See MAR. Care significantly affected by the following chronic conditions: Diabetes, Obesity. Counseling: I had a detailed discussion with the patient and/or guardian regarding: the historical points, exam findings, and any diagnostic results supporting the discharge/admit diagnosis, lab results, radiology results, the need for further work-up and treatment in the hospital. Response to treatment: the patient's symptoms have mildly improved after treatment. 03/23 19:08 Order name: CBC with Diff; Complete Time: 20:58 03/23 20:58 Interpretation: Normal except: WBC 13.10; HGB 10.1; HCT 32.9; MCV 75.2; MCH 23.0; MCHC cp 30.5; PLT 112; RDW 17.1; EULALIO% 91.0; LYM% 5.1; NEUT A 11.9. 03/23 19:08 Order name: CMP; Complete Time: 20:58 03/23 22:31 Interpretation: Normal except: NA 126; CL 96; ANION GAP 4.5; GLUC 267; GFR 89; AST 14; cp BILIT 1.1; CA 8.1; ALB 3.0; GLOB 4.5; A/G 0.7. 03/23 19:08 Order name: Lipase; Complete Time: 20:58 03/23 19:08 Order name: Urinalysis W/Microscopic 03/23 21:00 Order name: Lactate w/ 2H reflex if indic.; Complete Time: 22:20 03/23 21:00 Order name: Blood Culture Adult (2) 03/23 19:08 Order name: XRAY Hip RIGHT 2 view; Complete Time: 22:20 03/23 19:08 Order name: XRAY Pelvis; Complete Time: 22:20 03/23 19:56 Order name: US Extremity Venous Unilateral Ltd 03/23 21:00 Order name: CT Abd/Pelvis - IV Contrast Only; Complete Time: 22:20 03/23 22:21 Interpretation: Report reviewed. cp 03/23 19:08 Order name: IV Saline Lock; Complete Time: 19:55 cp 03/23 19:08 Order name: Labs collected and sent; Complete Time: 19:55 cp Administered Medications: 19:40 Drug: HYDROmorphone IVP 1 mg Route: IVP; Site: right antecubital; as6 23:03 Follow up: Response: No adverse reaction as6 19:40 Drug: Ondansetron IVP 4 mg Route: IVP; Site: right antecubital; as6 23:03 Follow up: Response: No adverse reaction as6 21:48 Drug: NS 0.9% IV 500 ml Route: IV; Rate: bolus; Site: right antecubital; as6 23:03 Follow up: Response: No adverse reaction; IV Status: Completed infusion; IV Intake: as6 500ml 22:43 Drug: NS 0.9% IV 500 ml Route: IV; Rate: 100 ml/hr; Site: right antecubital; as6 23:04 Follow up: Response: No adverse reaction; IV Status: Infusion continued upon admission; as6 IV Intake: 50ml 22:43 Drug: HYDROmorphone IVP 1 mg Route: IVP; Site: right antecubital; as6 23:03 Follow up: Response: No adverse reaction as6 22:43 Drug: vancoMYCIN IVPB 1.5 grams Route: IVPB; Rate: calculated rate; Site: right as6 antecubital; 23:04 Follow up: Response: No adverse reaction; IV Status: Infusion continued upon admission; as6 IV Intake: 25ml 22:43 Drug: Rocephin IV 2 grams Route: IV; Rate: calculated rate; Site: right antecubital; as6 23:03 Follow up: Response: No adverse reaction; IV Status: Completed infusion; IV Intake: [id number] 22:43 Drug: Enoxaparin Sub-Q 100 mg Route: Sub-Q; Site: right lower abdomen; as6 23:03 Follow up: Response: No adverse reaction as6 Disposition Summary: 03/23/23 22:30 Hospitalization Ordered Hospitalization Status: Inpatient Admission cp Provider: Zhou Drake cp Location: Telemetry/MedSurg (Inpatient) cp Condition: Stable cp Problem: new cp Symptoms: have improved cp Bed/Room Type: Standard cp Room Assignment: 224(03/23/23 22:50) cg Diagnosis - Cellulitis and acute lymphangitis of other parts of limb - left leg cp - Sepsis, unspecified organism cp Forms: - Medication Reconciliation Form cp - SBAR form cp Signatures: Dispatcher [employer] EDVenkatesh Berrios PA PA cp Garcia, Cindy, RN RN cg Antonio Durán RN RN as6 Constance Tracy RN RN nj1 Corrections: (The following items were deleted from the chart) 22:50 22:30 cp cg
[2023-03-23] MEDS ORDERED: VANCOMYCIN 1 GM/VIAL ONE (22:32)
[2023-03-23] MEDS ORDERED: VANCOMYCIN 500 MG/VIAL ONE (22:33)
[2023-03-23] MEDS ORDERED: NA CHLORIDE 0.9% 500 ML ONE (22:33)
[2023-03-23] MEDS ORDERED: CEFTRIAXONE 2000 MG/VIAL ONE (22:38)
[2023-03-23] MEDS ORDERED: ENOXAPARIN 100 MG/ML SYR SQ ONE (22:43)
[2023-03-24 00:38] VITALS: BMI 54.3
[2023-03-24] MEDS ORDERED: ACETAMINOPHEN 500 MG TAB PO PRN (00:55)
[2023-03-24] MEDS ORDERED: ONDANSETRON 4 MG/2 ML VIAL IV PRN (00:55)
[2023-03-24] MEDS ORDERED: GLUCAGON 1 MG/VIAL IM PRN ×2 (00:58→12:57)
[2023-03-24] MEDS ORDERED: D50W 25 GM/50 ML SYRINGE IV PRN ×2 (00:58→12:57)
[2023-03-24] MEDS ORDERED: D10W 125 ML IV PRN (01:13)
[2023-03-24] MEDS: MORPHINE 4 MG/ML SYR IV PRN ×3 (05:57→21:06)
[2023-03-24 06:22] LABS: Urine Bacteria None Seen /HPF (<20); Urine Bilirubin NEGATIVE (Negative); Urine Blood Negative (Negative); Urine Clarity Clear (Clear); Urine Color Yellow (Yellow); Urine Glucose 3+ (Negative); Urine Protein 1+ (Negative); Urine RBC None Seen /HPF (None Seen); Urine Urobilinogen 2+ (Normal)
[2023-03-24 06:24] LABS: Specific Gravity > 1.035 (1.005-1.030)
[2023-03-24] MEDS ORDERED: CEFTRIAXONE 2000 MG/VIAL ONE (07:39)
[2023-03-24] MEDS ORDERED: NA CHLORIDE 0.9% 100 ML ONE (08:12)
[2023-03-24] MEDS: CEFTRIAXONE 2,000 MG in NA CHLORIDE 0.9% 100 ML IV SCH ×2 (08:50→21:07)
[2023-03-24] MEDS: INSULIN -REGULAR HUMAN 50 UNIT/0.5 ML ML SQ SCH ×4 (08:51→21:00)
--- NOTE | 2023-03-24 10:39 | RAD REPORT ---
EXAM DESCRIPTION: US - Extremity Venous [facility] - 03/24/2023 1:14 am CLINICAL HISTORY: The patient is 57 years old and is Male; PAIN TECHNIQUE: Real-time duplex ultrasound scan of the left lower extremity veins integrating B-mode two -dimensional vascular structure, Doppler spectral analysis, color flow Doppler imaging and compressio n. COMPARISON: No relevant prior studies available. FINDINGS: Deep veins: Unremarkable. No DVT in the visualized common femoral, femoral, or poplite al veins. The veins demonstrate normal color flow, are normally compressible where visualized, with normal phasic flow and/or augmentation response. Soft tissues: Soft tissue fluid/edema. IMPRESSION: No evidence of DVT in the left lower extremity veins. Electronically signed by: Abad Rooney MD 03/24/2023 1:33 AM CDT Due to temporary technical issues with the PACS/Fluency reporting system, reports are being signed by the in house radiologists without review as a courtesy to insure prompt reporting. The interpreting radiologist is fully responsible for the content of the report.
--- NOTE | 2023-03-24 12:56 | P.HP ---
Certification for Inpatient Patient admitted to: Inpatient With expected LOS: <2 Midnights Patient will require the following post-hospital care: Home Health Services Practitioner: I am a practitioner with admitting privileges, knowledge of patient current condition, hospital course, and medical plan of care. Services: Services provided to patient in accordance with Admission requirements found in Title 42 Section 412.3 of the Code of Federal Regulations Patient History Date of Service: 03/24/23 Primary Care Provider: anna Reason for admission: cellulitis of the left lower leg Allergies No Known Drug Allergies Allergy (Verified 03/24/23 00:07) Unknown Home Medications: Insulin Glargine,Hum.rec.anlog [Basaglar Kwikpen U-100] 30 unit SQ SEECOM 03/24/23 Metformin HCl [Glucophage*] 1,000 mg PO BIDWM 03/24/23 - Past Medical/Surgical History Has patient received pneumonia vaccine in the past: No Diabetic: Yes -: NIDDM -: Lymphedema -: Morbid Obesity -: Kidney stones -: Rt AKA - Social History Smoking Status: Unknown if ever smoked Alcohol use: No CD- Drugs: No Caffeine use: No Place of Residence: Home Review of Systems 10-point ROS is otherwise unremarkable Integumentary: Other (cellulitis of the left lower leg ) Physical Examination - Vital Signs Temperature: 99.7 F Blood Pressure: 108/54 Pulse: 96 Respirations: 18 Pulse Ox (%): 91 - Physical Exam General: Alert, In no apparent distress HEENT: Atraumatic, PERRLA, Mucous membr. moist/pink, EOMI, Sclerae nonicteric Neck: Supple, 2+ carotid pulse no bruit, No LAD, Without JVD or thyroid abnormality Respiratory: Clear to auscultation bilaterally, Normal air movement Cardiovascular: Regular rate/rhythm, Normal S1 S2 Gastrointestinal: Normal bowel sounds, No tenderness Musculoskeletal: No tenderness Integumentary: No rashes Neurological: Normal gait, Normal speech, Normal strength at 5/5 x4 extr, Normal tone, Normal affect Lymphatics: No axilla or inguinal lymphadenopathy - Studies Laboratory Data (last 24 hrs) 03/23/23 19:46: Sodium 126 L, Potassium 3.5, BUN 17, Creatinine 0.99, Glucose 267 H, Total Bilirubin 1.1 H, AST 14 L, ALT 29, Alkaline Phosphatase 105, Lipase 12 L 03/23/23 19:46: WBC 13.10 H, Hgb 10.1 L, Hct 32.9 L, Plt Count 112 L Microbiology Data (last 24 hrs): 03/23/23 21:18 Blood - Blood Anaerobic Blood Culture - Final 03/23/23 21:25 Blood - Blood Anaerobic Blood Culture - Final Assessment and Plan - Problems (Diagnosis) (1) Cellulitis and abscess of foot Current Visit: Yes Status: Acute Plan: will continue the patient on antibiotics (2) Type 2 diabetes mellitus without complications Current Visit: Yes Status: Acute Plan: restart home medication Qualifiers: Diabetes mellitus intermediate card tender insulin use: with intermediate card tender use Qualified Code(s): E11.9 - Type 2 diabetes mellitus without complications; Z79.4 - shelter (current) use of insulin (3) Right hip pain Current Visit: Yes Status: Acute (4) HTN (hypertension) Current Visit: No Status: Acute Plan: will restart home medication Qualifiers: Hypertension type: primary hypertension Discharge Plan: Home Plan to discharge in: 24 Hours - Advance Directives Does patient have a Living Will: No Does patient have a Durable POA for Healthcare: No - Code Status/Comfort Care Code Status Assessed: No Code Status: Full Code Physician Review: Patient Assessed, Agree with Above Assessment and Plan Critical Care: No Time Spent Managing Pts Care (In Minutes): 45
[2023-03-24] MEDS ORDERED: HYDRALAZINE HCL 20 MG/ML VIAL IV PRN (12:57)
[2023-03-24] MEDS: INSULIN GLARGINE 100 UNIT/ML SQ SCH (13:31)
--- NOTE | 2023-03-24 16:25 | RAD REPORT ---
EXAM DESCRIPTION: Jeremie Single View03/24/2023 4:11 pm CLINICAL HISTORY: Shortness of breath COMPARISON: 2021 FINDINGS: The upper lobe vessels are prominent indicative of pulmonary venous hypertension Lungs appear clear The heart is moderately enlarged
[2023-03-24] MEDS: ENOXAPARIN 40 MG/0.4 ML SQ SCH (16:36)
[2023-03-24] MEDS: METFORMIN HCL 500 MG TAB PO SCH (16:37)
[2023-03-25] MEDS: MORPHINE 4 MG/ML SYR IV PRN ×2 (03:08→20:54)
[2023-03-25 06:48] LABS: Absolute Lymphocytes (CBC) 0.9 K/uL (0.7-4.9); Hematocrit 30.1 % (39.6-49.0); Lymphocytes % 9.4 % (15.3-44.8); MCV 76.7 fL (80-100); MPV 9.7 fL (7.6-11.3); RBC Red Blood Cell Count 3.93 M/uL (4.33-5.43)
[2023-03-25 07:06] LABS: Albumin 2.6 g/dL (3.4-5.0); Bilirubin Total 0.8 mg/dL (0.2-1.0); Potassium 3.4 mEq/L (3.5-5.1)
[2023-03-25] MEDS ORDERED: DICLOFENAC SOD D.R. 75 MG TAB PO PRN (07:57)
[2023-03-25] MEDS ORDERED: HYDROCODONE/APAP 7.5/325 MG TAB PO PRN (07:59)
[2023-03-25] MEDS: ACETAMINOPHEN 500 MG TAB PO SCH ×3 (08:00→20:55)
--- NOTE | 2023-03-25 08:01 | P.PN ---
Subjective Date of Service: 03/25/23 Primary Care Provider: anna Chief Complaint: cellulitis of the left lower leg Subjective: No new changes Review of Systems 10-point ROS is otherwise unremarkable Physical Examination - Vital Signs Temperature: 100.5 F Blood Pressure: 147/67 Pulse: 102 Respirations: 18 Pulse Ox (%): 92 - Physical Exam General: Alert, In no apparent distress HEENT: Atraumatic, PERRLA, EOMI Neck: Supple, JVD not distended Respiratory: Clear to auscultation bilaterally, Normal air movement Cardiovascular: Regular rate/rhythm, Normal S1 S2 Gastrointestinal: Normal bowel sounds, No tenderness Musculoskeletal: No tenderness Integumentary: No rashes Neurological: Normal speech, Normal tone, Normal affect Lymphatics: No axilla or inguinal lymphadenopathy - Studies Microbiology Data (last 24 hrs): 03/23/23 21:18 Blood - Blood Blood Culture Gram Stain - Final 03/23/23 21:18 Blood - Blood Anaerobic Blood Culture - Final 03/23/23 21:25 Blood - Blood Anaerobic Blood Culture - Final Assessment And Plan - Current Problems (Diagnosis) (1) Cellulitis and abscess of foot Current Visit: Yes Status: Acute Plan: will continue the patient on antibiotics (2) Type 2 diabetes mellitus without complications Current Visit: Yes Status: Acute Plan: restart home medication Qualifiers: Diabetes mellitus terminal operations manager insulin use: with terminal operations manager use Qualified Code(s): E11.9 - Type 2 diabetes mellitus without complications; Z79.4 - bed bug exterminator (current) use of insulin (3) Right hip pain Current Visit: Yes Status: Acute (4) HTN (hypertension) Current Visit: No Status: Acute Plan: will restart home medication Qualifiers: Hypertension type: primary hypertension (5) Hypoxia Current Visit: Yes Status: Acute Plan: will try to wean him off oxygen today. consult to Dr. Kelly. He has a non functioning cpap at home Discharge Plan: Home Plan to discharge in: 24 Hours - Code Status/Comfort Care Code Status Assessed: No Physician Review: Patient Assessed, Agree with Above Assessment and Plan Critical Care: No Time Spent Managing PTS Care (In Minutes): 20
[2023-03-25] MEDS: CEFTRIAXONE 2,000 MG in NA CHLORIDE 0.9% 100 ML IV SCH ×2 (08:57→20:53)
[2023-03-25] MEDS: METFORMIN HCL 500 MG TAB PO SCH ×2 (08:57→16:10)
[2023-03-25] MEDS: INSULIN -REGULAR HUMAN 50 UNIT/0.5 ML ML SQ SCH ×4 (08:59→21:05)
[2023-03-25] MEDS: INSULIN GLARGINE 100 UNIT/ML SQ SCH (09:05)
[2023-03-25] MEDS ORDERED: ACETAMINOPHEN 500 MG TAB PO PRN (11:00)
--- NOTE | 2023-03-25 12:13 | P.CNS ---
Date of Consult: 03/25/23 Reason for Consult: Respiratory failure Primary Care Provider: anna Chief Complaint: cellulitis of the left lower leg History of Present Illness: Patient is 57 years of age [place]-speaking only admitted with cellulitis of the left leg history of sleep apnea currently his BiPAP is broken he developed respiratory distress hypoxemia as a reason for consult patient is morbidly obese Allergies No Known Drug Allergies Allergy (Verified 03/24/23 00:07) Unknown Home Medications: Insulin Glargine,Hum.rec.anlog [Basaglar Kwikpen U-100] 30 unit SQ SEECOM 03/24/23 Metformin HCl [Glucophage*] 1,000 mg PO BIDWM 03/24/23 - Past Medical/Surgical History Diabetic: Yes -: NIDDM -: Lymphedema -: Morbid Obesity -: Kidney stones -: Rt AKA - Social History Smoking Status: Unknown if ever smoked Alcohol use: No CD- Drugs: No Caffeine use: No Place of Residence: Home Review of Systems is unable to be obtained Physical Examination Temp Pulse Resp BP Pulse Ox 100.5 F 102 H 18 147/67 H 92 03/25/23 08:01 03/25/23 08:01 03/25/23 09:58 03/25/23 08:01 03/25/23 09:58 General: Alert, Moderate distress Respiratory: Clear to auscultation bilaterally, Diminished Cardiovascular: Edema Gastrointestinal: Normal bowel sounds, Soft and benign, Non-distended - Problems (1) Respiratory failure Current Visit: Yes Status: Acute Plan: Patient is 57 years of age admitted with cellulitis of the left leg he has obstructive sleep apnea apparently there is been a problem with his BiPAP titrate sat to 90% check ABGs patient is hyponatremic hypokalemic pressure is satisfactory White count was little elevated now declining blood culture showed beta-hemolytic strep has a right above-knee amputation chest x-ray shows diminished lung volumes patient is hyponatremic hypokalemic although has not been taking any diuretic probably related to excessive diuresis from uncontrolled diabetes Qualifiers: Respiratory failure complication: unspecified whether with hypoxia or hypercapnia
[2023-03-25] MEDS: POTASSIUM 25 MEQ EFFERV TAB PO SCH ×2 (12:21→20:55)
[2023-03-25 13:29] LABS: Arterial Blood Carboxyhemoglob 1.8 % (0-1.5); Blood Gas Oxyhemoglobin 86.6 % (94-97); Blood O2 Saturation 89.2 % (92-98.5)
[2023-03-25 15:56] LABS: Arterial Blood Carboxyhemoglob 2.2 % (0-1.5); Blood Gas Oxyhemoglobin 88.2 % (94-97); Blood O2 Saturation 91.6 % (92-98.5)
[2023-03-25] MEDS: ENOXAPARIN 40 MG/0.4 ML SQ SCH (16:10)
[2023-03-26] MEDS: ACETAMINOPHEN 500 MG TAB PO SCH ×4 (02:00→21:31)
[2023-03-26] MEDS: MORPHINE 4 MG/ML SYR IV PRN ×4 (06:32→22:42)
[2023-03-26 06:45] LABS: Albumin 2.4 g/dL (3.4-5.0); Bilirubin Total 0.5 mg/dL (0.2-1.0); Potassium 3.7 mEq/L (3.5-5.1); Protein, Total 6.8 g/dL (6.4-8.2)
[2023-03-26 06:54] LABS: Absolute Lymphocytes (CBC) 0.7 K/uL (0.7-4.9); Hematocrit 30.6 % (39.6-49.0); Lymphocytes % 9.3 % (15.3-44.8); MCV 76.5 fL (80-100); MPV 9.6 fL (7.6-11.3)
[2023-03-26] MEDS: INSULIN -REGULAR HUMAN 50 UNIT/0.5 ML ML SQ SCH ×4 (07:30→21:32)
[2023-03-26] MEDS: INSULIN GLARGINE 100 UNIT/ML SQ SCH (09:00)
[2023-03-26] MEDS: METFORMIN HCL 500 MG TAB PO SCH ×2 (09:24→16:34)
[2023-03-26] MEDS: CEFTRIAXONE 2,000 MG in NA CHLORIDE 0.9% 100 ML IV SCH ×2 (09:24→21:31)
[2023-03-26] MEDS: POTASSIUM 25 MEQ EFFERV TAB PO SCH ×2 (09:24→21:30)
--- NOTE | 2023-03-26 12:53 | P.PN ---
Subjective Date of Service: 03/26/23 Primary Care Provider: anna Chief Complaint: cellulitis of the left lower leg Subjective: No new changes Review of Systems 10-point ROS is otherwise unremarkable General: Weakness Musculoskeletal: Leg Pain (right hip pain ) Physical Examination - Vital Signs Temperature: 98.0 F Blood Pressure: 117/55 Pulse: 96 Respirations: 16 Pulse Ox (%): 94 - Physical Exam General: Alert, In no apparent distress HEENT: Atraumatic, PERRLA, EOMI Neck: Supple, JVD not distended Respiratory: Clear to auscultation bilaterally, Normal air movement Cardiovascular: Regular rate/rhythm, Normal S1 S2 Gastrointestinal: Normal bowel sounds, No tenderness Musculoskeletal: No tenderness Integumentary: No rashes Neurological: Normal speech, Normal tone, Normal affect Lymphatics: No axilla or inguinal lymphadenopathy - Studies Microbiology Data (last 24 hrs): 03/23/23 21:18 Blood - Blood Aerobic Blood Culture - Final Streptococcus Agalactiae Grp B 03/23/23 21:18 Blood - Blood Blood Culture Gram Stain - Final 03/23/23 21:18 Blood - Blood Anaerobic Blood Culture - Final Assessment And Plan - Current Problems (Diagnosis) (1) Hypoxia Current Visit: Yes Status: Acute Plan: will try to wean him off oxygen today. consult to Dr. Kelly. He has a non functioning cpap at home 03/[address] Kelly. 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
[2023-03-26] MEDS: ENOXAPARIN 40 MG/0.4 ML SQ SCH (16:37)
[2023-03-27] MEDS: ACETAMINOPHEN 500 MG TAB PO SCH ×4 (03:11→21:31)
[2023-03-27 06:22] LABS: Absolute Lymphocytes (CBC) 0.9 K/uL (0.7-4.9); Lymphocytes % 13.2 % (15.3-44.8); MCV 75.7 fL (80-100); MPV 9.9 fL (7.6-11.3); RBC Red Blood Cell Count 3.97 M/uL (4.33-5.43)
[2023-03-27 06:43] LABS: Albumin 2.2 g/dL (3.4-5.0); Bilirubin Total 0.4 mg/dL (0.2-1.0); Potassium 3.5 mEq/L (3.5-5.1); Protein, Total 6.7 g/dL (6.4-8.2)
[2023-03-27] MEDS: INSULIN -REGULAR HUMAN 50 UNIT/0.5 ML ML SQ SCH ×4 (07:30→21:00)
--- NOTE | 2023-03-27 08:15 | P.PN ---
Subjective Date of Service: 03/27/23 Primary Care Provider: anna Chief Complaint: cellulitis of the left lower leg Subjective: No new changes Review of Systems 10-point ROS is otherwise unremarkable Respiratory: Shortness of Breath Physical Examination - Vital Signs Temperature: 97.7 F Blood Pressure: 141/67 Pulse: 94 Respirations: 18 Pulse Ox (%): 94 - Physical Exam General: Alert, In no apparent distress HEENT: Atraumatic, PERRLA, EOMI Neck: Supple, JVD not distended Respiratory: Clear to auscultation bilaterally, Normal air movement Cardiovascular: Regular rate/rhythm, Normal S1 S2 Gastrointestinal: Normal bowel sounds, No tenderness Musculoskeletal: No tenderness Integumentary: No rashes Neurological: Normal speech, Normal tone, Normal affect Lymphatics: No axilla or inguinal lymphadenopathy - Studies Microbiology Data (last 24 hrs): 03/23/23 21:18 Blood - Blood Aerobic Blood Culture - Final Streptococcus Agalactiae Grp B 03/23/23 21:18 Blood - Blood Blood Culture Gram Stain - Final 03/23/23 21:18 Blood - Blood Anaerobic Blood Culture - Final Assessment And Plan - Current Problems (Diagnosis) (1) Hypoxia Current Visit: Yes Status: Acute Plan: will try to wean him off oxygen today. consult to Dr. Kelly. He has a non functioning cpap at home 03/[address] Kelly. Will need to get his home cpap Have discussed with his daughter (2) Cellulitis and abscess of foot Current Visit: Yes Status: Acute Plan: will continue the patient on antibiotics (3) Type 2 diabetes mellitus without complications Current Visit: Yes Status: Acute Plan: restart home medication Qualifiers: Diabetes mellitus termite treater helper insulin use: with termite treater helper use Qualified Code(s): E11.9 - Type 2 diabetes mellitus without complications; Z79.4 - tank terminal gauger (current) use of insulin (4) Right hip pain Current Visit: Yes Status: Acute (5) HTN (hypertension) Current Visit: No Status: Acute Plan: will restart home medication Qualifiers: Hypertension type: primary hypertension Discharge Plan: Home Plan to discharge in: 24 Hours - Code Status/Comfort Care Code Status Assessed: No Physician Review: Patient Assessed, Agree with Above Assessment and Plan Critical Care: No Time Spent Managing PTS Care (In Minutes): 20
[2023-03-27] MEDS: INSULIN GLARGINE 100 UNIT/ML SQ SCH (09:00)
[2023-03-27] MEDS: CEFTRIAXONE 2,000 MG in NA CHLORIDE 0.9% 100 ML IV SCH ×2 (09:21→21:31)
[2023-03-27] MEDS: POTASSIUM 25 MEQ EFFERV TAB PO SCH ×2 (09:22→21:31)
[2023-03-27] MEDS: METFORMIN HCL 500 MG TAB PO SCH ×2 (09:22→16:52)
--- NOTE | 2023-03-27 11:56 | P.PN ---
Subjective Date of Service: 03/27/23 Primary Care Provider: anna Chief Complaint: History of sleep apnea Patient's condition is stable no change I will hypercapnia noted Review of Systems is unable to be obtained Physical Examination - Vital Signs Temperature: 97.7 F Blood Pressure: 141/67 Pulse: 94 Respirations: 18 Pulse Ox (%): 94 - Physical Exam General: Unresponsive Respiratory: Clear to auscultation bilaterally, Diminished - Studies Microbiology Data (last 24 hrs): 03/23/23 21:18 Blood - Blood Aerobic Blood Culture - Final Streptococcus Agalactiae Grp B 03/23/23 21:18 Blood - Blood Blood Culture Gram Stain - Final 03/23/23 21:18 Blood - Blood Anaerobic Blood Culture - Final Assessment And Plan - Current Problems (Diagnosis) (1) Respiratory failure Current Visit: Yes Status: Acute Plan: Patient has a presumed chronic respiratory failure from hypoxemia hypercarbia hypoventilation syndrome Labs chemistries reviewed history of sleep apnea BiPAP is broken does not appear to be septic discharge plan follow-up with me as an outpatient Apparently [facility]/will review and adjust the settings send off other [employer] Qualifiers: Respiratory failure complication: unspecified whether with hypoxia or hypercapnia Physician Review: Patient Assessed, Agree with Above Assessment and Plan
[2023-03-27] MEDS: MORPHINE 4 MG/ML SYR IV PRN ×2 (13:11→16:52)
[2023-03-27 14:41] LABS: Arterial Blood Carboxyhemoglob 1.8 % (0-1.5); Blood Gas Oxyhemoglobin 87.9 % (94-97); Blood O2 Saturation 90.7 % (92-98.5)
[2023-03-27] MEDS: ENOXAPARIN 40 MG/0.4 ML SQ SCH (16:52)
[2023-03-27 21:43] VITALS: O2SAT 93
[2023-03-28] MEDS: ACETAMINOPHEN 500 MG TAB PO SCH ×3 (02:56→13:32)
[2023-03-28] MEDS: MORPHINE 4 MG/ML SYR IV PRN (06:16)
[2023-03-28] MEDS: INSULIN -REGULAR HUMAN 50 UNIT/0.5 ML ML SQ SCH ×3 (07:30→15:56)
[2023-03-28] MEDS: METFORMIN HCL 500 MG TAB PO SCH ×2 (09:14→16:09)
[2023-03-28] MEDS: CEFTRIAXONE 2,000 MG in NA CHLORIDE 0.9% 100 ML IV SCH (09:15)
[2023-03-28] MEDS: POTASSIUM 25 MEQ EFFERV TAB PO SCH (09:15)
[2023-03-28] MEDS: INSULIN GLARGINE 100 UNIT/ML SQ SCH (09:17)
[2023-03-28 12:16] VITALS: BP 121/67; TEMP 98.2
--- NOTE | 2023-03-28 16:09 | P.DS ---
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 Was found to have a cellulitis of the left lower leg. He has chronic lymphadenitis Hospital Course: Patient is here for cellulitis of the left lower leg. he had some hypoxia in house. Was seen by Dr. Kelly. The patient is doing better. Complained of some burning while a catheter was placed. Dr. Kelly will arrange for his cpap to be repaired/replaced. Will send him home on bactrim and get home health with [facility] Vital Signs/Physical Exam: Temp Pulse Resp BP Pulse Ox 98.2 F 85 19 121/67 92 03/28/23 12:00 03/28/23 12:00 03/28/23 12:00 03/28/23 12:00 03/28/23 12:00 General: Alert, In no apparent distress HEENT: Atraumatic, PERRLA, EOMI Neck: Supple, JVD not distended Respiratory: Clear to auscultation bilaterally, Normal air movement Cardiovascular: Regular rate/rhythm, Normal S1 S2 Gastrointestinal: Normal bowel sounds, No tenderness Musculoskeletal: No tenderness Integumentary: No rashes Neurological: Normal speech, Normal tone, Normal affect Lymphatics: No axilla or inguinal lymphadenopathy Laboratory Data at Discharge: WBC 7.20 thou/uL (4.3-10.9) 03/27/23 06:06 Hgb 9.5 g/dL (13.6-17.9) L 03/27/23 06:06 Hct 30.0 % (39.6-49.0) L 03/27/23 06:06 Plt Count 133 thou/uL (152-406) L 03/27/23 06:06 Sodium 137 mEq/L (136-145) D 03/27/23 06:06 Potassium 3.5 mEq/L (3.5-5.1) 03/27/23 06:06 BUN 9 mg/dL (7-18) 03/27/23 06:06 Creatinine 0.58 mg/dL (0.70-1.30) L 03/27/23 06:06 Glucose 173 mg/dL (74-106) H 03/27/23 06:06 Total Bilirubin 0.4 mg/dL (0.2-1.0) 03/27/23 06:06 AST 14 U/L (15-37) L 03/27/23 06:06 ALT 23 U/L (16-61) 03/27/23 06:06 Alkaline Phosphatase 96 U/L (45-117) 03/27/23 06:06 Lipase 12 U/L (13-75) L 03/23/23 19:46 Home Medications: Insulin Glargine,Hum.rec.anlog [Basaglar Kwikpen U-100] 30 unit SQ SEECOM 03/24/23 Metformin HCl [Glucophage*] 1,000 mg PO BIDWM 03/24/23 Diet: ADA Followup: Zhou Drake MD [Primary Care Provider] - Physician Review: Patient Assessed, Agree with Above Assessment and Plan Time spent managing pt's care (in minutes): 30
== END 2023-03-28 16:57 | disposition home health service (06) | DRG 871 ==
LOC: ER 18:57 → ERHOLD 22:33 → 2ND 22:53
PROVIDERS: ADMIT Internal Medicine; ATTEND Internal Medicine
PROC: 5A09557 Assistance with Respiratory Ventilation, Greater than 96 Consecutive Hours, Continuous Positive Airway Pressure (ICD-10-PCS; principal; 2023-03-24)
DX: A40.1 Sepsis due to streptococcus, group B (principal); J96.01 Acute respiratory failure with hypoxia; Z68.43 Body mass index [BMI] 50.0-59.9, adult; E66.2 Morbid (severe) obesity with alveolar hypoventilation; L03.116 Cellulitis of left lower limb; L02.612 Cutaneous abscess of left foot; I88.9 Nonspecific lymphadenitis, unspecified; E11.9 Type 2 diabetes mellitus without complications; M25.551 Pain in right hip; Z79.4 Long term (current) use of insulin; Z79.84 Long term (current) use of oral hypoglycemic drugs; Z89.611 Acquired absence of right leg above knee
CPT/HCPCS: 36415; 71045; 72170; 74177; 80053; 81001; 82805; 82947; 83605; 83690; 85025; 85379; 87040; 87077; 87186; 87205; 93971; 94660; 94760; 96361; 96365; 96368; 96372; 96375; 97161; 97530; 99285; J0696; J1170; J1650; J1815; J2405; J7030; J7040; Q9967

== ENCOUNTER 2024-01-11 19:05 | Inpatient (IN) | payer OTHER ==
--- OUTSIDE RECORDS SUMMARY | 2024-01-11 19:13 | XMS REPORT | Continuity of Care Document ---
Author Name Unknown Address [address] [place] [address] [facility] thconnect Address [address] [place] [address] Care Team Providers Care Engine Tester Name Role Phone RIGO, BRANDIN Nguyen Primary Care Physician Unavailab May Carrasquillo Anavella Attending Cli carlo Unavailable JEANNIE MILLER Attending Clinician Unavaila JULISA Maguire Attending Clinician Unavailabl e Doctor Unassigned, Pablo Pena Attending Clinician U corky Truong DENTAL TECHNICIAN, Veronica K Attending Clinician Unavail Julisa Herrera MD Attending Clinician [phone] Logan Lance MD Attending Clinician [phone]- [phone] Niyah Mckeon PT Attending Clinician Un available LOGAN LANCE Attending Clinician KATE Sandoval Attending Clinician Unavailable Nicolasa Castillo PT Attending Clinician Unavailab Marianne Carrasquillo, Marianne Admitting Clinician U navailable Payers Payer Name Policy Type Policy Number Effective Date Expirati on Date Source MEDICARE PART A \T\ B [id number] 2017 00:00:00 [facility] [id number] Problems Condition Name Condition Details Condition Category Status Onset Date Resolution Date Last Treatment Date Treating Clinician Comments Source Chronic edema Chronic edema Disease Active 2019-10 00:00: 00 [facility] Hx of AKA (above knee amputation ), 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 ), right Disease Active 2019-10 00:00: 00 [facility] Allergies, Adverse Reactions, Alerts Allergy Name Allergy Type Status Severity Reaction(s) Onset Date Inactive Date Treating Clinician Comments Source NO KNOWN ALLERGIE S Drug Class Active [facility] Social History Social Habit Start Date Stop Date Quantity Comments Source Alcohol intake 2020-06-25 00:00:00 2020-06-25 00:00:00 Ex-drinker (finding) [facility] Tobacco use and exposure 2019-11-25 00:00:00 2019-11-25 00:00:00 Smokeless tobacco non-user [facility] Sex Assigned At 1965 00:00:00 1965 00:00:00 [facility] Smoking Status Start Date Stop Date Source Unknown if ever smoked Unive [facility] Never smoked tobacco [facility] Medications Ordered Medication Name Filled Medication Name Start Date Stop Date Current Medication? Ordering Clinician Indication Dosage Frequency Signature (SIG) Comments Components Source GLIPIZIDE 10 mg tablet 2020-10 00:00: 00 Yes [id number] TAKE ONE TABLET BY MOUTH DAILY [facility] GLIPIZIDE 10 mg tablet 2020-10 00:00: 00 Yes [id number] TAKE ONE TABLET BY MOUTH DAILY [facility] GLIPIZIDE 10 mg tablet 2020-10 00:00: 00 Yes [id number] TAKE ONE TABLET BY MOUTH DAILY [facility] GLIPIZIDE 10 mg tablet 2020-10 00:00: 00 Yes [id number] TAKE ONE TABLET BY MOUTH DAILY [facility] GLIPIZIDE 10 mg tablet 2020-10 00:00: 00 Yes [id number] TAKE ONE TABLET BY MOUTH DAILY [facility] GLIPIZIDE 10 mg tablet 2020-10 00:00: 00 Yes [id number] TAKE ONE TABLET BY MOUTH DAILY [facility] GLIPIZIDE 10 mg tablet 2020-10 00:00: 00 Yes [id number] TAKE ONE TABLET BY MOUTH DAILY [facility] GLIPIZIDE 10 mg tablet 2020-10 00:00: 00 Yes [id number] TAKE ONE TABLET BY MOUTH DAILY [facility] GLIPIZIDE 10 mg tablet 2020-10 0 00:00: 00 Yes [id number] TAKE ONE TABLET BY MOUTH DAILY [facility] GLIPIZIDE 10 mg tablet 2020-10 0 00:00: 00 Yes [id number] TAKE ONE TABLET BY MOUTH DAILY [facility] GLIPIZIDE 10 mg tablet 2020-10 0 00:00: 00 Yes [id number] TAKE ONE TABLET BY MOUTH DAILY [facility] GLIPIZIDE 10 mg tablet 2020-10 00:00: 00 Yes [id number] TAKE ONE TABLET BY MOUTH DAILY [facility] GLIPIZIDE 10 mg tablet 2020-10 00:00: 00 Yes [id number] TAKE ONE TABLET BY MOUTH DAILY [facility] GLIPIZIDE 10 mg tablet 2020-10 00:00: 00 Yes [id number] TAKE ONE TABLET BY MOUTH DAILY [facility] GLIPIZIDE 10 mg tablet 2020-10 00:00: 00 Yes [id number] TAKE ONE TABLET BY MOUTH DAILY [facility] GLIPIZIDE 10 mg tablet 2020-10 00:00: 00 Yes [id number] TAKE ONE TABLET BY MOUTH DAILY [facility] GLIPIZIDE 10 mg tablet 2020-10 00:00: 00 Yes [id number] TAKE ONE TABLET BY MOUTH DAILY [facility] GLIPIZIDE 10 mg tablet 2020-10 00:00: 00 Yes [id number] TAKE ONE TABLET BY MOUTH DAILY [facility] GLIPIZIDE 10 mg tablet 2020-10 00:00: 00 Yes [id number] TAKE ONE TABLET BY MOUTH DAILY [facility] GLIPIZIDE 10 mg tablet 2020-10 00:00: 00 Yes [id number] TAKE ONE TABLET BY MOUTH DAILY [facility] GLIPIZIDE 10 mg tablet 2020-10 0 00:00: 00 Yes [id number] TAKE ONE TABLET BY MOUTH DAILY [facility] GLIPIZIDE 10 mg tablet 2020-10 0 00:00: 00 Yes [id number] TAKE ONE TABLET BY MOUTH DAILY [facility] GLIPIZIDE 10 mg tablet 2020-10 0 00:00: 00 Yes [id number] TAKE ONE TABLET BY MOUTH DAILY [facility] GLIPIZIDE 10 mg tablet 2020-10 0 00:00: 00 Yes [id number] TAKE ONE TABLET BY MOUTH DAILY [facility] GLIPIZIDE 10 mg tablet 2020-10 0 00:00: 00 Yes [id number] TAKE ONE TABLET BY MOUTH DAILY [facility] GLIPIZIDE 10 mg tablet 2020-10 0 00:00: 00 Yes [id number] TAKE ONE TABLET BY MOUTH DAILY [facility] GLIPIZIDE 10 mg tablet 2020-10 00:00: 00 Yes [id number] TAKE ONE TABLET BY MOUTH DAILY [facility] GLIPIZIDE 10 mg tablet 2020-10 0 00:00: 00 Yes [id number] TAKE ONE TABLET BY MOUTH DAILY [facility] GLIPIZIDE 10 mg tablet 2020-10 0 00:00: 00 Yes [id number] TAKE ONE TABLET BY MOUTH DAILY [facility] GLIPIZIDE 10 mg tablet 2020-10 00:00: 00 Yes [id number] TAKE ONE TABLET BY MOUTH DAILY [facility] GLIPIZIDE 10 mg tablet 2020-10 00:00: 00 Yes [id number] TAKE ONE TABLET BY MOUTH DAILY [facility] GLIPIZIDE 10 mg tablet 2020-10 0 00:00: 00 Yes [id number] TAKE ONE TABLET BY MOUTH DAILY [facility] GLIPIZIDE 10 mg tablet 2020-10 0 00:00: 00 Yes [id number] TAKE ONE TABLET BY MOUTH DAILY [facility] GLIPIZIDE 10 mg tablet 2020-10 0 00:00: 00 Yes [id number] TAKE ONE TABLET BY MOUTH DAILY [facility] GLIPIZIDE 10 mg tablet 2020-10 0 00:00: 00 Yes [id number] TAKE ONE TABLET BY MOUTH DAILY [facility] GLIPIZIDE 10 mg tablet 2020-10 0 00:00: 00 Yes [id number] TAKE ONE TABLET BY MOUTH DAILY [facility] GLIPIZIDE 10 mg tablet 2020-10 00:00: 00 Yes [id number] TAKE ONE TABLET BY MOUTH DAILY [facility] GLIPIZIDE 10 mg tablet 2020-10 00:00: 00 Yes [id number] TAKE ONE TABLET BY MOUTH DAILY [facility] GLIPIZIDE 10 mg tablet 2020-10 00:00: 00 Yes [id number] TAKE ONE TABLET BY MOUTH DAILY [facility] GLIPIZIDE 10 mg tablet 2020-10 00:00: 00 Yes [id number] TAKE ONE TABLET BY MOUTH DAILY [facility] GLIPIZIDE 10 mg tablet 2020-10 00:00: 00 08-20 00:00 :00 No [id number] TAKE ONE TABLET BY MOUTH DAILY [facility] PIOGLITAZON E 30 mg tablet 07-15 00:00: 00 Yes TAKE ONE TABLET BY MOUTH DAILY [facility] TRIAMTERENE -HYDROCHLOR OTHIAZIDE 37.5-25 mg per capsule 0 07-15 00:00: 00 Yes [id number] TAKE ONE CAPSULE BY MOUTH EVERY MORNING [facility] BUMETANIDE 1 mg tablet 07-15 00:00: 00 Yes [id number] TAKE ONE TABLET BY MOUTH DAILY [facility] PIOGLITAZON E 30 mg tablet 0 07-15 00:00: 00 Yes TAKE ONE TABLET BY MOUTH DAILY [facility] TRIAMTERENE -HYDROCHLOR OTHIAZIDE 37.5-25 mg per capsule 0 07-15 00:00: 00 Yes [id number] TAKE ONE CAPSULE BY MOUTH EVERY MORNING [facility] BUMETANIDE 1 mg tablet 07-15 00:00: 00 Yes [id number] TAKE ONE TABLET BY MOUTH DAILY [facility] PIOGLITAZON E 30 mg tablet 0 07-15 00:00: 00 Yes TAKE ONE TABLET BY MOUTH DAILY [facility] TRIAMTERENE -HYDROCHLOR OTHIAZIDE 37.5-25 mg per capsule 07-15 00:00: 00 Yes [id number] TAKE ONE CAPSULE BY MOUTH EVERY MORNING [facility] BUMETANIDE 1 mg tablet 07-15 00:00: 00 Yes [id number] TAKE ONE TABLET BY MOUTH DAILY [facility] PIOGLITAZON E 30 mg tablet 07-15 00:00: 00 Yes TAKE ONE TABLET BY MOUTH DAILY [facility] TRIAMTERENE -HYDROCHLOR OTHIAZIDE 37.5-25 mg per capsule 07-15 00:00: 00 Yes [id number] TAKE ONE CAPSULE BY MOUTH EVERY MORNING [facility] BUMETANIDE 1 mg tablet 07-15 00:00: 00 Yes [id number] TAKE ONE TABLET BY MOUTH DAILY [facility] PIOGLITAZON E 30 mg tablet 07-15 00:00: 00 Yes TAKE ONE TABLET BY MOUTH DAILY [facility] TRIAMTERENE -HYDROCHLOR OTHIAZIDE 37.5-25 mg per capsule 07-15 00:00: 00 Yes [id number] TAKE ONE CAPSULE BY MOUTH EVERY MORNING [facility] BUMETANIDE 1 mg tablet 07-15 00:00: 00 Yes [id number] TAKE ONE TABLET BY MOUTH DAILY [facility] PIOGLITAZON E 30 mg tablet 07-15 00:00: 00 Yes TAKE ONE TABLET BY MOUTH DAILY [facility] TRIAMTERENE -HYDROCHLOR OTHIAZIDE 37.5-25 mg per capsule 07-15 00:00: 00 Yes [id number] TAKE ONE CAPSULE BY MOUTH EVERY MORNING [facility] BUMETANIDE 1 mg tablet 07-15 00:00: 00 Yes [id number] TAKE ONE TABLET BY MOUTH DAILY [facility] PIOGLITAZON E 30 mg tablet 07-15 00:00: 00 Yes TAKE ONE TABLET BY MOUTH DAILY [facility] TRIAMTERENE -HYDROCHLOR OTHIAZIDE 37.5-25 mg per capsule 07-15 00:00: 00 Yes [id number] TAKE ONE CAPSULE BY MOUTH EVERY MORNING [facility] BUMETANIDE 1 mg tablet 0 07-15 00:00: 00 Yes [id number] TAKE ONE TABLET BY MOUTH DAILY [facility] PIOGLITAZON E 30 mg tablet 0 07-15 00:00: 00 Yes TAKE ONE TABLET BY MOUTH DAILY [facility] PIOGLITAZON E 30 mg tablet 0 07-15 00:00: 00 Yes TAKE ONE TABLET BY MOUTH DAILY [facility] TRIAMTERENE -HYDROCHLOR OTHIAZIDE 37.5-25 mg per capsule 07-15 00:00: 00 Yes [id number] TAKE ONE CAPSULE BY MOUTH EVERY MORNING [facility] BUMETANIDE 1 mg tablet 07-15 00:00: 00 Yes [id number] TAKE ONE TABLET BY MOUTH DAILY [facility] TRIAMTERENE -HYDROCHLOR OTHIAZIDE 37.5-25 mg per capsule 07-15 00:00: 00 Yes [id number] TAKE ONE CAPSULE BY MOUTH EVERY MORNING [facility] PIOGLITAZON E 30 mg tablet 07-15 00:00: 00 Yes TAKE ONE TABLET BY MOUTH DAILY [facility] TRIAMTERENE -HYDROCHLOR OTHIAZIDE 37.5-25 mg per capsule 07-15 00:00: 00 Yes [id number] TAKE ONE CAPSULE BY MOUTH EVERY MORNING [facility] BUMETANIDE 1 mg tablet 07-15 00:00: 00 Yes [id number] TAKE ONE TABLET BY MOUTH DAILY [facility] BUMETANIDE 1 mg tablet 07-15 00:00: 00 Yes [id number] TAKE ONE TABLET BY MOUTH DAILY [facility] PIOGLITAZON E 30 mg tablet 07-15 00:00: 00 Yes TAKE ONE TABLET BY MOUTH DAILY [facility] TRIAMTERENE -HYDROCHLOR OTHIAZIDE 37.5-25 mg per capsule 0 07-15 00:00: 00 Yes [id number] TAKE ONE CAPSULE BY MOUTH EVERY MORNING [facility] BUMETANIDE 1 mg tablet 07-15 00:00: 00 Yes [id number] TAKE ONE TABLET BY MOUTH DAILY [facility] PIOGLITAZON E 30 mg tablet 07-15 00:00: 00 Yes TAKE ONE TABLET BY MOUTH DAILY [facility] TRIAMTERENE -HYDROCHLOR OTHIAZIDE 37.5-25 mg per capsule 07-15 00:00: 00 Yes [id number] TAKE ONE CAPSULE BY MOUTH EVERY MORNING [facility] BUMETANIDE 1 mg tablet 07-15 00:00: 00 Yes [id number] TAKE ONE TABLET BY MOUTH DAILY [facility] PIOGLITAZON E 30 mg tablet 07-15 00:00: 00 Yes TAKE ONE TABLET BY MOUTH DAILY [facility] TRIAMTERENE -HYDROCHLOR OTHIAZIDE 37.5-25 mg per capsule 07-15 00:00: 00 Yes [id number] TAKE ONE CAPSULE BY MOUTH EVERY MORNING [facility] BUMETANIDE 1 mg tablet 07-15 00:00: 00 Yes [id number] TAKE ONE TABLET BY MOUTH DAILY [facility] PIOGLITAZON E 30 mg tablet 07-15 00:00: 00 Yes TAKE ONE TABLET BY MOUTH DAILY [facility] TRIAMTERENE -HYDROCHLOR OTHIAZIDE 37.5-25 mg per capsule 07-15 00:00: 00 Yes [id number] TAKE ONE CAPSULE BY MOUTH EVERY MORNING [facility] BUMETANIDE 1 mg tablet 07-15 00:00: 00 Yes [id number] TAKE ONE TABLET BY MOUTH DAILY [facility] PIOGLITAZON E 30 mg tablet 07-15 00:00: 00 Yes TAKE ONE TABLET BY MOUTH DAILY [facility] TRIAMTERENE -HYDROCHLOR OTHIAZIDE 37.5-25 mg per capsule 07-15 00:00: 00 Yes [id number] TAKE ONE CAPSULE BY MOUTH EVERY MORNING [facility] BUMETANIDE 1 mg tablet 07-15 00:00: 00 Yes [id number] TAKE ONE TABLET BY MOUTH DAILY [facility] PIOGLITAZON E 30 mg tablet 07-15 00:00: 00 Yes TAKE ONE TABLET BY MOUTH DAILY [facility] TRIAMTERENE -HYDROCHLOR OTHIAZIDE 37.5-25 mg per capsule 07-15 00:00: 00 Yes [id number] TAKE ONE CAPSULE BY MOUTH EVERY MORNING [facility] BUMETANIDE 1 mg tablet 07-15 00:00: 00 Yes [id number] TAKE ONE TABLET BY MOUTH DAILY [facility] PIOGLITAZON E 30 mg tablet 07-15 00:00: 00 Yes TAKE ONE TABLET BY MOUTH DAILY [facility] TRIAMTERENE -HYDROCHLOR OTHIAZIDE 37.5-25 mg per capsule 07-15 00:00: 00 Yes [id number] TAKE ONE CAPSULE BY MOUTH EVERY MORNING [facility] BUMETANIDE 1 mg tablet 07-15 00:00: 00 Yes [id number] TAKE ONE TABLET BY MOUTH DAILY [facility] PIOGLITAZON E 30 mg tablet 07-15 00:00: 00 Yes TAKE ONE TABLET BY MOUTH DAILY [facility] TRIAMTERENE -HYDROCHLOR OTHIAZIDE 37.5-25 mg per capsule 07-15 00:00: 00 Yes [id number] TAKE ONE CAPSULE BY MOUTH EVERY MORNING [facility] BUMETANIDE 1 mg tablet 07-15 00:00: 00 Yes [id number] TAKE ONE TABLET BY MOUTH DAILY [facility] PIOGLITAZON E 30 mg tablet 07-15 00:00: 00 Yes TAKE ONE TABLET BY MOUTH DAILY [facility] TRIAMTERENE -HYDROCHLOR OTHIAZIDE 37.5-25 mg per capsule 07-15 00:00: 00 Yes [id number] TAKE ONE CAPSULE BY MOUTH EVERY MORNING [facility] BUMETANIDE 1 mg tablet 07-15 00:00: 00 Yes [id number] TAKE ONE TABLET BY MOUTH DAILY [facility] PIOGLITAZON E 30 mg tablet 07-15 00:00: 00 Yes TAKE ONE TABLET BY MOUTH DAILY [facility] TRIAMTERENE -HYDROCHLOR OTHIAZIDE 37.5-25 mg per capsule 07-15 00:00: 00 Yes [id number] TAKE ONE CAPSULE BY MOUTH EVERY MORNING [facility] BUMETANIDE 1 mg tablet 07-15 00:00: 00 Yes [id number] TAKE ONE TABLET BY MOUTH DAILY [facility] PIOGLITAZON E 30 mg tablet 07-15 00:00: 00 Yes TAKE ONE TABLET BY MOUTH DAILY [facility] TRIAMTERENE -HYDROCHLOR OTHIAZIDE 37.5-25 mg per capsule 07-15 00:00: 00 Yes [id number] TAKE ONE CAPSULE BY MOUTH EVERY MORNING [facility] BUMETANIDE 1 mg tablet 07-15 00:00: 00 Yes [id number] TAKE ONE TABLET BY MOUTH DAILY [facility] PIOGLITAZON E 30 mg tablet 07-15 00:00: 00 Yes TAKE ONE TABLET BY MOUTH DAILY [facility] TRIAMTERENE -HYDROCHLOR OTHIAZIDE 37.5-25 mg per capsule 07-15 00:00: 00 Yes [id number] TAKE ONE CAPSULE BY MOUTH EVERY MORNING [facility] BUMETANIDE 1 mg tablet 07-15 00:00: 00 Yes [id number] TAKE ONE TABLET BY MOUTH DAILY [facility] PIOGLITAZON E 30 mg tablet 07-15 00:00: 00 Yes TAKE ONE TABLET BY MOUTH DAILY [facility] TRIAMTERENE -HYDROCHLOR OTHIAZIDE 37.5-25 mg per capsule 07-15 00:00: 00 Yes [id number] TAKE ONE CAPSULE BY MOUTH EVERY MORNING [facility] BUMETANIDE 1 mg tablet 07-15 00:00: 00 Yes [id number] TAKE ONE TABLET BY MOUTH DAILY [facility] PIOGLITAZON E 30 mg tablet 07-15 00:00: 00 Yes TAKE ONE TABLET BY MOUTH DAILY [facility] TRIAMTERENE -HYDROCHLOR OTHIAZIDE 37.5-25 mg per capsule 07-15 00:00: 00 Yes [id number] TAKE ONE CAPSULE BY MOUTH EVERY MORNING [facility] BUMETANIDE 1 mg tablet 07-15 00:00: 00 Yes [id number] TAKE ONE TABLET BY MOUTH DAILY [facility] PIOGLITAZON E 30 mg tablet 07-15 00:00: 00 Yes TAKE ONE TABLET BY MOUTH DAILY [facility] TRIAMTERENE -HYDROCHLOR OTHIAZIDE 37.5-25 mg per capsule 07-15 00:00: 00 Yes [id number] TAKE ONE CAPSULE BY MOUTH EVERY MORNING [facility] BUMETANIDE 1 mg tablet 07-15 00:00: 00 Yes [id number] TAKE ONE TABLET BY MOUTH DAILY [facility] PIOGLITAZON E 30 mg tablet 07-15 00:00: 00 Yes TAKE ONE TABLET BY MOUTH DAILY [facility] TRIAMTERENE -HYDROCHLOR OTHIAZIDE 37.5-25 mg per capsule 07-15 00:00: 00 Yes [id number] TAKE ONE CAPSULE BY MOUTH EVERY MORNING [facility] BUMETANIDE 1 mg tablet 07-15 00:00: 00 Yes [id number] TAKE ONE TABLET BY MOUTH DAILY [facility] PIOGLITAZON E 30 mg tablet 07-15 00:00: 00 Yes TAKE ONE TABLET BY MOUTH DAILY [facility] TRIAMTERENE -HYDROCHLOR OTHIAZIDE 37.5-25 mg per capsule 07-15 00:00: 00 Yes [id number] TAKE ONE CAPSULE BY MOUTH EVERY MORNING [facility] BUMETANIDE 1 mg tablet 07-15 00:00: 00 Yes [id number] TAKE ONE TABLET BY MOUTH DAILY [facility] PIOGLITAZON E 30 mg tablet 07-15 00:00: 00 Yes TAKE ONE TABLET BY MOUTH DAILY [facility] TRIAMTERENE -HYDROCHLOR OTHIAZIDE 37.5-25 mg per capsule 07-15 00:00: 00 Yes [id number] TAKE ONE CAPSULE BY MOUTH EVERY MORNING [facility] BUMETANIDE 1 mg tablet 07-15 00:00: 00 Yes [id number] TAKE ONE TABLET BY MOUTH DAILY [facility] PIOGLITAZON E 30 mg tablet 07-15 00:00: 00 Yes TAKE ONE TABLET BY MOUTH DAILY [facility] TRIAMTERENE -HYDROCHLOR OTHIAZIDE 37.5-25 mg per capsule 07-15 00:00: 00 Yes [id number] TAKE ONE CAPSULE BY MOUTH EVERY MORNING [facility] BUMETANIDE 1 mg tablet 07-15 00:00: 00 Yes [id number] TAKE ONE TABLET BY MOUTH DAILY [facility] PIOGLITAZON E 30 mg tablet 07-15 00:00: 00 Yes TAKE ONE TABLET BY MOUTH DAILY [facility] TRIAMTERENE -HYDROCHLOR OTHIAZIDE 37.5-25 mg per capsule 07-15 00:00: 00 Yes [id number] TAKE ONE CAPSULE BY MOUTH EVERY MORNING [facility] BUMETANIDE 1 mg tablet 07-15 00:00: 00 Yes [id number] TAKE ONE TABLET BY MOUTH DAILY [facility] PIOGLITAZON E 30 mg tablet 07-15 00:00: 00 Yes TAKE ONE TABLET BY MOUTH DAILY [facility] TRIAMTERENE -HYDROCHLOR OTHIAZIDE 37.5-25 mg per capsule 07-15 00:00: 00 Yes [id number] TAKE ONE CAPSULE BY MOUTH EVERY MORNING [facility] BUMETANIDE 1 mg tablet 07-15 00:00: 00 Yes [id number] TAKE ONE TABLET BY MOUTH DAILY [facility] PIOGLITAZON E 30 mg tablet 07-15 00:00: 00 Yes TAKE ONE TABLET BY MOUTH DAILY [facility] TRIAMTERENE -HYDROCHLOR OTHIAZIDE 37.5-25 mg per capsule 07-15 00:00: 00 Yes [id number] TAKE ONE CAPSULE BY MOUTH EVERY MORNING [facility] BUMETANIDE 1 mg tablet 07-15 00:00: 00 Yes [id number] TAKE ONE TABLET BY MOUTH DAILY [facility] PIOGLITAZON E 30 mg tablet 07-15 00:00: 00 Yes TAKE ONE TABLET BY MOUTH DAILY [facility] TRIAMTERENE -HYDROCHLOR OTHIAZIDE 37.5-25 mg per capsule 07-15 00:00: 00 Yes [id number] TAKE ONE CAPSULE BY MOUTH EVERY MORNING [facility] BUMETANIDE 1 mg tablet 07-15 00:00: 00 Yes [id number] TAKE ONE TABLET BY MOUTH DAILY [facility] PIOGLITAZON E 30 mg tablet 07-15 00:00: 00 Yes TAKE ONE TABLET BY MOUTH DAILY [facility] TRIAMTERENE -HYDROCHLOR OTHIAZIDE 37.5-25 mg per capsule 07-15 00:00: 00 Yes [id number] TAKE ONE CAPSULE BY MOUTH EVERY MORNING [facility] BUMETANIDE 1 mg tablet 07-15 00:00: 00 Yes [id number] TAKE ONE TABLET BY MOUTH DAILY [facility] PIOGLITAZON E 30 mg tablet 07-15 00:00: 00 Yes TAKE ONE TABLET BY MOUTH DAILY [facility] TRIAMTERENE -HYDROCHLOR OTHIAZIDE 37.5-25 mg per capsule 07-15 00:00: 00 Yes [id number] TAKE ONE CAPSULE BY MOUTH EVERY MORNING [facility] BUMETANIDE 1 mg tablet 07-15 00:00: 00 Yes [id number] TAKE ONE TABLET BY MOUTH DAILY [facility] PIOGLITAZON E 30 mg tablet 07-15 00:00: 00 Yes TAKE ONE TABLET BY MOUTH DAILY [facility] TRIAMTERENE -HYDROCHLOR OTHIAZIDE 37.5-25 mg per capsule 07-15 00:00: 00 Yes [id number] TAKE ONE CAPSULE BY MOUTH EVERY MORNING [facility] BUMETANIDE 1 mg tablet 07-15 00:00: 00 Yes [id number] TAKE ONE TABLET BY MOUTH DAILY [facility] PIOGLITAZON E 30 mg tablet 07-15 00:00: 00 Yes TAKE ONE TABLET BY MOUTH DAILY [facility] TRIAMTERENE -HYDROCHLOR OTHIAZIDE 37.5-25 mg per capsule 07-15 00:00: 00 Yes [id number] TAKE ONE CAPSULE BY MOUTH EVERY MORNING [facility] BUMETANIDE 1 mg tablet 07-15 00:00: 00 Yes [id number] TAKE ONE TABLET BY MOUTH DAILY [facility] PIOGLITAZON E 30 mg tablet 07-15 00:00: 00 Yes TAKE ONE TABLET BY MOUTH DAILY [facility] TRIAMTERENE -HYDROCHLOR OTHIAZIDE 37.5-25 mg per capsule 07-15 00:00: 00 Yes [id number] TAKE ONE CAPSULE BY MOUTH EVERY MORNING [facility] BUMETANIDE 1 mg tablet 07-15 00:00: 00 Yes [id number] TAKE ONE TABLET BY MOUTH DAILY [facility] PIOGLITAZON E 30 mg tablet 07-15 00:00: 00 Yes TAKE ONE TABLET BY MOUTH DAILY [facility] TRIAMTERENE -HYDROCHLOR OTHIAZIDE 37.5-25 mg per capsule 07-15 00:00: 00 Yes [id number] TAKE ONE CAPSULE BY MOUTH EVERY MORNING [facility] BUMETANIDE 1 mg tablet 07-15 00:00: 00 Yes [id number] TAKE ONE TABLET BY MOUTH DAILY [facility] PIOGLITAZON E 30 mg tablet 07-15 00:00: 00 Yes TAKE ONE TABLET BY MOUTH DAILY [facility] TRIAMTERENE -HYDROCHLOR OTHIAZIDE 37.5-25 mg per capsule 07-15 00:00: 00 Yes [id number] TAKE ONE CAPSULE BY MOUTH EVERY MORNING [facility] BUMETANIDE 1 mg tablet 07-15 00:00: 00 Yes [id number] TAKE ONE TABLET BY MOUTH DAILY [facility] PIOGLITAZON E 30 mg tablet 07-15 00:00: 00 Yes TAKE ONE TABLET BY MOUTH DAILY [facility] TRIAMTERENE -HYDROCHLOR OTHIAZIDE 37.5-25 mg per capsule 07-15 00:00: 00 Yes [id number] TAKE ONE CAPSULE BY MOUTH EVERY MORNING [facility] BUMETANIDE 1 mg tablet 07-15 00:00: 00 Yes [id number] TAKE ONE TABLET BY MOUTH DAILY [facility] metFORMIN 500 mg tablet 06-25 00:00: 00 Yes [id number] TAKE ONE TABLET BY MOUTH TWICE A DAY WITH [facility] metFORMIN 500 mg tablet 06-25 00:00: 00 Yes [id number] TAKE ONE TABLET BY MOUTH TWICE A DAY WITH [facility]ALS [facility] metFORMIN 500 mg tablet 06-25 00:00: 00 Yes [id number] TAKE ONE TABLET BY MOUTH TWICE A DAY WITH [facility]ALS [facility] metFORMIN 500 mg tablet 06-25 00:00: 00 Yes [id number] TAKE ONE TABLET BY MOUTH TWICE A DAY WITH [facility]ALS [facility] metFORMIN 500 mg tablet 06-25 00:00: 00 Yes [id number] TAKE ONE TABLET BY MOUTH TWICE A DAY WITH [facility]ALS [facility] metFORMIN 500 mg tablet 06-25 00:00: 00 Yes [id number] TAKE ONE TABLET BY MOUTH TWICE A DAY WITH MEALS [facility] metFORMIN 500 mg tablet 06-25 00:00: 00 Yes [id number] TAKE ONE TABLET BY MOUTH TWICE A DAY WITH [facility]ALS [facility] metFORMIN 500 mg tablet 06-25 00:00: 00 Yes [id number] TAKE ONE TABLET BY MOUTH TWICE A DAY WITH [facility]ALS [facility] metFORMIN 500 mg tablet 06-25 00:00: 00 Yes [id number] TAKE ONE TABLET BY MOUTH TWICE A DAY WITH [facility]ALS [facility] metFORMIN 500 mg tablet 06-25 00:00: 00 Yes [id number] TAKE ONE TABLET BY MOUTH TWICE A DAY [facility] [facility] metFORMIN 500 mg tablet 06-25 00:00: 00 Yes [id number] TAKE ONE TABLET BY MOUTH TWICE A DAY WITH [facility] 06-25 00:00: 00 Yes [id number] TAKE ONE TABLET BY MOUTH TWICE A DAY WITH MEALS [facility] met[facility]MIN [facility] mg tablet 06-25 00:00: 00 Yes [id number] TAKE ONE TABLET BY MOUTH TWICE A DAY WITH MEALS [facility] met[facility]MIN 500 mg tablet 06-25 00:00: 00 Yes [id number] TAKE ONE TABLET BY MOUTH TWICE A DAY WITH MEALS [facility] met[facility]MIN 500 mg tablet 06-25 00:00: 00 Yes [id number] TAKE ONE TABLET BY MOUTH TWICE A DAY WITH MEALS [facility] metFORMIN 500 mg tablet 06-25 00:00: 00 Yes [id number] TAKE ONE TABLET BY MOUTH TWICE A DAY WITH MEALS [facility] metFORMIN 500 mg tablet 06-25 00:00: 00 Yes [id number] TAKE ONE TABLET BY MOUTH TWICE A DAY WITH MEALS [facility] metFORMIN 500 mg tablet 06-25 00:00: 00 Yes [id number] TAKE ONE TABLET BY MOUTH TWICE A DAY WITH MEALS [facility] metFORMIN 500 mg tablet 06-25 00:00: 00 Yes [id number] TAKE ONE TABLET BY MOUTH TWICE A DAY WITH MEALS [facility] metFORMIN 500 mg tablet 06-25 00:00: 00 Yes [id number] TAKE ONE TABLET BY MOUTH TWICE A DAY WITH MEALS [facility] metFORMIN 500 mg tablet 06-25 00:00: 00 Yes [id number] TAKE ONE TABLET BY MOUTH TWICE A DAY WITH MEALS [facility] met[facility]MIN 500 mg tablet 06-25 00:00: 00 Yes [id number] TAKE ONE TABLET BY MOUTH TWICE A DAY WITH MEALS [facility] metFORMIN 500 mg tablet 06-25 00:00: 00 Yes [id number] TAKE ONE TABLET BY MOUTH TWICE A DAY WITH MEALS [facility] met[facility]MIN 500 mg tablet 06-25 00:00: 00 Yes [id number] TAKE ONE TABLET BY MOUTH TWICE A DAY WITH MEALS [facility] metFORMIN 500 mg tablet 06-25 00:00: 00 Yes [id number] TAKE ONE TABLET BY MOUTH TWICE A DAY WITH MEALS [facility] metFORMIN 500 mg tablet 06-25 00:00: 00 Yes [id number] TAKE ONE TABLET BY MOUTH TWICE A DAY WITH MEALS [facility] metFORMIN 500 mg tablet 06-25 00:00: 00 Yes [id number] TAKE ONE TABLET BY MOUTH TWICE A DAY WITH MEALS [facility] met[facility]MIN 500 mg tablet 06-25 00:00: 00 Yes [id number] TAKE ONE TABLET BY MOUTH TWICE A DAY WITH MEALS [facility] metFORMIN 500 mg tablet 06-25 00:00: 00 Yes [id number] TAKE ONE TABLET BY MOUTH TWICE A DAY WITH MEALS [facility] metFORMIN 500 mg tablet 06-25 00:00: 00 Yes [id number] TAKE ONE TABLET BY MOUTH TWICE A DAY WITH MEALS [facility] metFORMIN 500 mg tablet 06-25 00:00: 00 Yes [id number] TAKE ONE TABLET BY MOUTH TWICE A DAY WITH MEALS [facility] metFORMIN 500 mg tablet 06-25 00:00: 00 Yes [id number] TAKE ONE TABLET BY MOUTH TWICE A DAY WITH MEALS [facility] metFORMIN 500 mg tablet 06-25 00:00: 00 Yes [id number] TAKE ONE TABLET BY MOUTH TWICE A DAY WITH MEALS [facility] metFORMIN 500 mg tablet 06-25 00:00: 00 Yes [id number] TAKE ONE TABLET BY MOUTH TWICE A DAY WITH MEALS [facility] metFORMIN 500 mg tablet 06-25 00:00: 00 Yes [id number] TAKE ONE TABLET BY MOUTH TWICE A DAY WITH MEALS [facility] metFORMIN 500 mg tablet 06-25 00:00: 00 Yes [id number] TAKE ONE TABLET BY MOUTH TWICE A DAY WITH MEALS [facility] metFORMIN 500 mg tablet 06-25 00:00: 00 Yes [id number] TAKE ONE TABLET BY MOUTH TWICE A DAY WITH MEALS [facility] metFORMIN 500 mg tablet 0 06-25 00:00: 00 Yes [id number] TAKE ONE TABLET BY MOUTH TWICE A DAY WITH MEALS [facility] metFORMIN 500 mg tablet 2020-0 06-25 00:00: 00 Yes [id number] TAKE ONE TABLET BY MOUTH TWICE A DAY WITH MEALS [facility] metFORMIN 500 mg tablet 0 06-25 00:00: 00 Yes [id number] TAKE ONE TABLET BY MOUTH TWICE A DAY WITH MEALS [facility] metFORMIN 500 mg tablet 0 06-25 00:00: 00 Yes [id number] TAKE ONE TABLET BY MOUTH TWICE A DAY WITH MEALS [facility] metFORMIN 500 mg tablet 2020-0 06-25 00:00: 00 Yes [id number] TAKE ONE TABLET BY MOUTH TWICE A DAY WITH MEALS [facility] ATORVASTATI N 40 mg tablet 2020-0 06-13 00:00: 00 Yes TAKE ONE TABLET BY MOUTH AT BEDTIME [facility] ATORVASTATI N 40 mg tablet 2020-0 06-13 00:00: 00 Yes TAKE ONE TABLET BY MOUTH AT BEDTIME [facility] ATORVASTATI N 40 mg tablet 2020-0 06-13 00:00: 00 Yes TAKE ONE TABLET BY MOUTH AT BEDTIME [facility] ATORVASTATI N 40 mg tablet 2020-0 06-13 00:00: 00 Yes TAKE ONE TABLET BY MOUTH AT BEDTIME [facility] ATORVASTATI N 40 mg tablet 2020-0 06-13 00:00: 00 Yes TAKE ONE TABLET BY MOUTH AT BEDTIME [facility] ATORVASTATI N 40 mg tablet 2020-0 06-13 00:00: 00 Yes TAKE ONE TABLET BY MOUTH AT BEDTIME [facility] ATORVASTATI N 40 mg tablet 2020-0 06-13 00:00: 00 Yes TAKE ONE TABLET BY MOUTH AT BEDTIME [facility] ATORVASTATI N 40 mg tablet 2020-0 06-13 00:00: 00 Yes TAKE ONE TABLET BY MOUTH AT BEDTIME [facility] ATORVASTATI N 40 mg tablet 2020-0 06-13 00:00: 00 Yes TAKE ONE TABLET BY MOUTH AT BEDTIME [facility] ATORVASTATI N 40 mg tablet 2020-0 06-13 00:00: 00 Yes TAKE ONE TABLET BY MOUTH AT BEDTIME [facility] ATORVASTATI N 40 mg tablet 2020-0 06-13 00:00: 00 Yes TAKE ONE TABLET BY MOUTH AT BEDTIME [facility] ATORVASTATI N 40 mg tablet 2020-0 06-13 00:00: 00 Yes TAKE ONE TABLET BY MOUTH AT BEDTIME [facility] ATORVASTATI N 40 mg tablet 2020-0 06-13 00:00: 00 Yes TAKE ONE TABLET BY MOUTH AT BEDTIME [facility] ATORVASTATI N 40 mg tablet 2020-0 06-13 00:00: 00 Yes TAKE ONE TABLET BY MOUTH AT BEDTIME [facility] ATORVASTATI N 40 mg tablet 2020-0 06-13 00:00: 00 Yes TAKE ONE TABLET BY MOUTH AT BEDTIME [facility] ATORVASTATI N 40 mg tablet 2020-0 06-13 00:00: 00 Yes TAKE ONE TABLET BY MOUTH AT BEDTIME [facility] ATORVASTATI N 40 mg tablet 2020-0 06-13 00:00: 00 Yes TAKE ONE TABLET BY MOUTH AT BEDTIME [facility] ATORVASTATI N 40 mg tablet 0 06-13 00:00: 00 Yes TAKE ONE TABLET BY MOUTH AT BEDTIME [facility] ATORVASTATI N 40 mg tablet 2020-0 06-13 00:00: 00 Yes TAKE ONE TABLET BY MOUTH AT BEDTIME [facility] ATORVASTATI N 40 mg tablet 2020-0 06-13 00:00: 00 Yes TAKE ONE TABLET BY MOUTH AT BEDTIME [facility] ATORVASTATI N 40 mg tablet 2020-0 06-13 00:00: 00 Yes TAKE ONE TABLET BY MOUTH AT BEDTIME [facility] ATORVASTATI N 40 mg tablet 2020-0 06-13 00:00: 00 Yes TAKE ONE TABLET BY MOUTH AT BEDTIME [facility] ATORVASTATI N 40 mg tablet 2020-0 06-13 00:00: 00 Yes TAKE ONE TABLET BY MOUTH AT BEDTIME [facility] ATORVASTATI N 40 mg tablet 2020-0 06-13 00:00: 00 Yes TAKE ONE TABLET BY MOUTH AT BEDTIME [facility] ATORVASTATI N 40 mg tablet 2020-0 06-13 00:00: 00 Yes TAKE ONE TABLET BY MOUTH AT BEDTIME [facility] ATORVASTATI N 40 mg tablet 2020-0 06-13 00:00: 00 Yes TAKE ONE TABLET BY MOUTH AT BEDTIME [facility] ATORVASTATI N 40 mg tablet 2020-0 06-13 00:00: 00 Yes TAKE ONE TABLET BY MOUTH AT BEDTIME [facility] ATORVASTATI N 40 mg tablet 2020-0 06-13 00:00: 00 Yes TAKE ONE TABLET BY MOUTH AT BEDTIME [facility] ATORVASTATI N 40 mg tablet 2020-0 06-13 00:00: 00 Yes TAKE ONE TABLET BY MOUTH AT BEDTIME [facility] ATORVASTATI N 40 mg tablet 2020-0 06-13 00:00: 00 Yes TAKE ONE TABLET BY MOUTH AT BEDTIME [facility] ATORVASTATI N 40 mg tablet 2020-0 06-13 00:00: 00 Yes TAKE ONE TABLET BY MOUTH AT BEDTIME [facility] ATORVASTATI N 40 mg tablet 2020-0 06-13 00:00: 00 Yes TAKE ONE TABLET BY MOUTH AT BEDTIME [facility] ATORVASTATI N 40 mg tablet 2020-0 06-13 00:00: 00 Yes TAKE ONE TABLET BY MOUTH AT BEDTIME [facility] ATORVASTATI N 40 mg tablet 2020-0 06-13 00:00: 00 Yes TAKE ONE TABLET BY MOUTH AT BEDTIME [facility] ATORVASTATI N 40 mg tablet 2020-0 06-13 00:00: 00 Yes TAKE ONE TABLET BY MOUTH AT BEDTIME [facility] ATORVASTATI N 40 mg tablet 2020-0 06-13 00:00: 00 Yes TAKE ONE TABLET BY MOUTH AT BEDTIME [facility] ATORVASTATI N 40 mg tablet 2020-0 06-13 00:00: 00 Yes TAKE ONE TABLET BY MOUTH AT BEDTIME [facility] ATORVASTATI N 40 mg tablet 0 19 00:00: 00 Yes TAKE ONE TABLET BY MOUTH AT BEDTIME [facility] ATORVASTATI N 40 mg tablet 0 06-13 00:00: 00 Yes TAKE ONE TABLET BY MOUTH AT BEDTIME [facility] ATORVASTATI N 40 mg tablet 0 8 00:00: 00 Yes TAKE ONE TABLET BY MOUTH AT BEDTIME [facility] ATORVASTATI N 40 mg tablet 0 06-13 00:00: 00 Yes TAKE ONE TABLET BY MOUTH AT BEDTIME [facility] ATORVASTATI N 40 mg tablet 0 06-13 00:00: 00 Yes TAKE ONE TABLET BY MOUTH AT BEDTIME [facility] GLIPIZIDE 10 mg tablet 2020-0 8-16 00:00: 00 Yes [id number] TAKE ONE TABLET BY MOUTH DAILY [facility] GLIPIZIDE 10 mg tablet 0 816 00:00: 00 Yes [id number] TAKE ONE TABLET BY MOUTH DAILY [facility] GLIPIZIDE 10 mg tablet 0 816 00:00: 00 08-13 00:00 :00 No [id number] TAKE ONE TABLET BY MOUTH DAILY [facility] BUMETANIDE 1 mg tablet 2020-0 7 00:00: 00 Yes [id number] TAKE ONE TABLET BY MOUTH DAILY [facility] TRIAMTERENE -HYDROCHLOR OTHIAZIDE 37.5-25 mg per capsule 2020-0 727 00:00: 00 Yes [id number] TAKE ONE CAPSULE BY MOUTH EVERY MORNING [facility] BUMETANIDE 1 mg tablet 2020-0 727 00:00: 00 07-15 00:00 :00 No [id number] TAKE ONE TABLET BY MOUTH DAILY [facility] TRIAMTERENE -HYDROCHLOR OTHIAZIDE 37.5-25 mg per capsule 2020-0 727 00:00: 00 07-15 00:00 :00 No [id number] TAKE ONE CAPSULE BY MOUTH EVERY MORNING [facility] KCL 10 mEq tablet 2020-0 05-15 00:00: 00 Yes [id number] TAKE ONE TABLET BY MOUTH DAILY [facility] KCL 10 mEq tablet 2020-0 05-15 00:00: 00 Yes [id number] TAKE ONE TABLET BY MOUTH DAILY [facility] KCL 10 mEq tablet 2020-0 05-15 00:00: 00 Yes [id number] TAKE ONE TABLET BY MOUTH DAILY [facility] KCL 10 mEq tablet 2020-0 05-15 00:00: 00 Yes [id number] TAKE ONE TABLET BY MOUTH DAILY [facility] KCL 10 mEq tablet 2020-0 05-15 00:00: 00 Yes [id number] TAKE ONE TABLET BY MOUTH DAILY [facility] KCL 10 mEq tablet 2020-0 05-15 00:00: 00 Yes [id number] TAKE ONE TABLET BY MOUTH DAILY [facility] KCL 10 mEq tablet 2020-0 05-15 00:00: 00 Yes [id number] TAKE ONE TABLET BY MOUTH DAILY [facility] KCL 10 mEq tablet 2020-0 05-15 00:00: 00 Yes [id number] TAKE ONE TABLET BY MOUTH DAILY [facility] KCL 10 mEq tablet 2020-0 05-15 00:00: 00 Yes [id number] TAKE ONE TABLET BY MOUTH DAILY [facility] KCL 10 mEq tablet 2020-0 05-15 00:00: 00 Yes [id number] TAKE ONE TABLET BY MOUTH DAILY [facility] KCL 10 mEq tablet 2020-0 05-15 00:00: 00 Yes [id number] TAKE ONE TABLET BY MOUTH DAILY [facility] KCL 10 mEq tablet 2020-0 05-15 00:00: 00 Yes [id number] TAKE ONE TABLET BY MOUTH DAILY [facility] KCL 10 mEq tablet 2020-0 05-15 00:00: 00 Yes [id number] TAKE ONE TABLET BY MOUTH DAILY [facility] KCL 10 mEq tablet 2020-0 05-15 00:00: 00 Yes [id number] TAKE ONE TABLET BY MOUTH DAILY [facility] KCL 10 mEq tablet 2020-0 05-15 00:00: 00 Yes [id number] TAKE ONE TABLET BY MOUTH DAILY [facility] KCL 10 mEq tablet 2020-0 05-15 00:00: 00 Yes [id number] TAKE ONE TABLET BY MOUTH DAILY [facility] KCL 10 mEq tablet 2020-0 05-15 00:00: 00 Yes [id number] TAKE ONE TABLET BY MOUTH DAILY [facility] KCL 10 mEq tablet 2020-0 05-15 00:00: 00 Yes [id number] TAKE ONE TABLET BY MOUTH DAILY [facility] KCL 10 mEq tablet 2020-0 05-15 00:00: 00 Yes [id number] TAKE ONE TABLET BY MOUTH DAILY [facility] KCL 10 mEq tablet 2020-0 05-15 00:00: 00 Yes [id number] TAKE ONE TABLET BY MOUTH DAILY [facility] KCL 10 mEq tablet 2020-0 05-15 00:00: 00 Yes [id number] TAKE ONE TABLET BY MOUTH DAILY [facility] KCL 10 mEq tablet 2020-0 05-15 00:00: 00 Yes [id number] TAKE ONE TABLET BY MOUTH DAILY [facility] KCL 10 mEq tablet 2020-0 05-15 00:00: 00 Yes [id number] TAKE ONE TABLET BY MOUTH DAILY [facility] KCL 10 mEq tablet 0 05-15 00:00: 00 Yes [id number] TAKE ONE TABLET BY MOUTH DAILY [facility] KCL 10 mEq tablet 2020-0 05-15 00:00: 00 Yes [id number] TAKE ONE TABLET BY MOUTH DAILY [facility] KCL 10 mEq tablet 2020-0 05-15 00:00: 00 Yes [id number] TAKE ONE TABLET BY MOUTH DAILY [facility] KCL 10 mEq tablet 2020-0 05-15 00:00: 00 Yes [id number] TAKE ONE TABLET BY MOUTH DAILY [facility] KCL 10 mEq tablet 2020-0 05-15 00:00: 00 Yes [id number] TAKE ONE TABLET BY MOUTH DAILY [facility] KCL 10 mEq tablet 2020-0 05-15 00:00: 00 Yes [id number] TAKE ONE TABLET BY MOUTH DAILY [facility] KCL 10 mEq tablet 0 05-15 00:00: 00 Yes [id number] TAKE ONE TABLET BY MOUTH DAILY [facility] KCL 10 mEq tablet 0 05-15 00:00: 00 Yes [id number] TAKE ONE TABLET BY MOUTH DAILY [facility] KCL 10 mEq tablet 0 05-15 00:00: 00 Yes [id number] TAKE ONE TABLET BY MOUTH DAILY [facility] KCL 10 mEq tablet 0 05-15 00:00: 00 Yes [id number] TAKE ONE TABLET BY MOUTH DAILY [facility] KCL 10 mEq tablet 0 05-15 00:00: 00 Yes [id number] TAKE ONE TABLET BY MOUTH DAILY [facility] KCL 10 mEq tablet 05-15 00:00: 00 Yes [id number] TAKE ONE TABLET BY MOUTH DAILY [facility] KCL 10 mEq tablet 0 05-15 00:00: 00 Yes [id number] TAKE ONE TABLET BY MOUTH DAILY [facility] KCL 10 mEq tablet 0 05-15 00:00: 00 Yes [id number] TAKE ONE TABLET BY MOUTH DAILY [facility] KCL 10 mEq tablet 0 05-15 00:00: 00 Yes [id number] TAKE ONE TABLET BY MOUTH DAILY [facility] KCL 10 mEq tablet 0 05-15 00:00: 00 Yes [id number] TAKE ONE TABLET BY MOUTH DAILY [facility] KCL 10 mEq tablet 0 05-15 00:00: 00 Yes [id number] TAKE ONE TABLET BY MOUTH DAILY [facility] KCL 10 mEq tablet 0 05-15 00:00: 00 Yes [id number] TAKE ONE TABLET BY MOUTH DAILY [facility] KCL 10 mEq tablet 0 05-15 00:00: 00 Yes [id number] TAKE ONE TABLET BY MOUTH DAILY [facility] metFORMIN 500 mg tablet 04-15 00:00: 00 06-25 00:00 :00 No [id number] TAKE ONE TABLET BY MOUTH TWICE A DAY WITH MEALS [facility] PIOGLITAZON E 30 mg tablet 04-10 00:00: 00 Yes TAKE ONE TABLET BY MOUTH DAILY [facility] PIOGLITAZON E 30 mg tablet 04-10 00:00: 00 07-15 00:00 :00 No TAKE ONE TABLET BY MOUTH DAILY [facility] exenatide microsphere s (BYDUREON) 2 mg/0.65 mL injection 02-13 00:00: 00 Yes [id number] 2mg inject 0.65 mL under the skin weekly. [facility] exenatide microsphere s (BYDUREON) 2 mg/0.65 mL injection 02-13 00:00: 00 Yes [id number] 2mg inject 0.65 mL under the skin weekly. [facility] exenatide microsphere s (BYDUREON) 2 mg/0.65 mL injection 02-13 00:00: 00 Yes [id number] 2mg inject 0.65 mL under the skin weekly. [facility] exenatide microsphere s (BYDUREON) 2 mg/0.65 mL injection 02-13 00:00: 00 Yes [id number] 2mg inject 0.65 mL under the skin weekly. [facility] exenatide microsphere s (BYDUREON) 2 mg/0.65 mL injection 02-13 00:00: 00 Yes [id number] 2mg inject 0.65 mL under the skin weekly. [facility] exenatide microsphere s (BYDUREON) 2 mg/0.65 mL injection 02-13 00:00: 00 Yes [id number] 2mg inject 0.65 mL under the skin weekly. [facility] exenatide microsphere s (BYDUREON) 2 mg/0.65 mL injection 02-13 00:00: 00 Yes [id number] 2mg inject 0.65 mL under the skin weekly. [facility] exenatide microsphere s (BYDUREON) 2 mg/0.65 mL injection 02-13 00:00: 00 Yes [id number] 2mg inject 0.65 mL under the skin weekly. [facility] exenatide microsphere s (BYDUREON) 2 mg/0.65 mL injection 02-13 00:00: 00 Yes [id number] 2mg inject 0.65 mL under the skin weekly. [facility] exenatide microsphere s (BYDUREON) 2 mg/0.65 mL injection 02-13 00:00: 00 Yes [id number] 2mg inject 0.65 mL under the skin weekly. [facility] exenatide microsphere s (BYDUREON) 2 mg/0.65 mL injection 02-13 00:00: 00 Yes [id number] 2mg inject 0.65 mL under the skin weekly. [facility] exenatide microsphere s (BYDUREON) 2 mg/0.65 mL injection 02-13 00:00: 00 Yes [id number] 2mg inject 0.65 mL under the skin weekly. [facility] exenatide microsphere s (BYDUREON) 2 mg/0.65 mL injection 02-13 00:00: 00 Yes [id number] 2mg inject 0.65 mL under the skin weekly. [facility] exenatide microsphere s (BYDUREON) 2 mg/0.65 mL injection 02-13 00:00: 00 Yes [id number] 2mg inject 0.65 mL under the skin weekly. [facility] exenatide microsphere s (BYDUREON) 2 mg/0.65 mL injection 02-13 00:00: 00 Yes [id number] 2mg inject 0.65 mL under the skin weekly. [facility] exenatide microsphere s (BYDUREON) 2 mg/0.65 mL injection 02-13 00:00: 00 Yes [id number] 2mg inject 0.65 mL under the skin weekly. [facility] exenatide microsphere s (BYDUREON) 2 mg/0.65 mL injection 02-13 00:00: 00 Yes [id number] 2mg inject 0.65 mL under the skin weekly. [facility] exenatide microsphere s (BYDUREON) 2 mg/0.65 mL injection 02-13 00:00: 00 Yes [id number] 2mg inject 0.65 mL under the skin weekly. [facility] exenatide microsphere s (BYDUREON) 2 mg/0.65 mL injection 02-13 00:00: 00 Yes [id number] 2mg inject 0.65 mL under the skin weekly. [facility] exenatide microsphere s (BYDUREON) 2 mg/0.65 mL injection 02-13 00:00: 00 Yes [id number] 2mg inject 0.65 mL under the skin weekly. [facility] exenatide microsphere s (BYDUREON) 2 mg/0.65 mL injection 02-13 00:00: 00 Yes [id number] 2mg inject 0.65 mL under the skin weekly. [facility] exenatide microsphere s (BYDUREON) 2 mg/0.65 mL injection 02-13 00:00: 00 Yes [id number] 2mg inject 0.65 mL under the skin weekly. [facility] exenatide microsphere s (BYDUREON) 2 mg/0.65 mL injection 02-13 00:00: 00 Yes [id number] 2mg inject 0.65 mL under the skin weekly. [facility] exenatide microsphere s (BYDUREON) 2 mg/0.65 mL injection 02-13 00:00: 00 Yes [id number] 2mg inject 0.65 mL under the skin weekly. [facility] exenatide microsphere s (BYDUREON) 2 mg/0.65 mL injection 02-13 00:00: 00 Yes [id number] 2mg inject 0.65 mL under the skin weekly. [facility] exenatide microsphere s (BYDUREON) 2 mg/0.65 mL injection 02-13 00:00: 00 Yes [id number] 2mg inject 0.65 mL under the skin weekly. [facility] exenatide microsphere s (BYDUREON) 2 mg/0.65 mL injection 02-13 00:00: 00 Yes [id number] 2mg inject 0.65 mL under the skin weekly. [facility] exenatide microsphere s (BYDUREON) 2 mg/0.65 mL injection 02-13 00:00: 00 Yes [id number] 2mg inject 0.65 mL under the skin weekly. [facility] exenatide microsphere s (BYDUREON) 2 mg/0.65 mL injection 02-13 00:00: 00 Yes [id number] 2mg inject 0.65 mL under the skin weekly. [facility] exenatide microsphere s (BYDUREON) 2 mg/0.65 mL injection 02-13 00:00: 00 Yes [id number] 2mg inject 0.65 mL under the skin weekly. [facility] exenatide microsphere s (BYDUREON) 2 mg/0.65 mL injection 02-13 00:00: 00 Yes [id number] 2mg inject 0.65 mL under the skin weekly. [facility] exenatide microsphere s (BYDUREON) 2 mg/0.65 mL injection 02-13 00:00: 00 Yes [id number] 2mg inject 0.65 mL under the skin weekly. [facility] exenatide microsphere s (BYDUREON) 2 mg/0.65 mL injection 02-13 00:00: 00 Yes [id number] 2mg inject 0.65 mL under the skin weekly. [facility] exenatide microsphere s (BYDUREON) 2 mg/0.65 mL injection 02-13 00:00: 00 Yes [id number] 2mg inject 0.65 mL under the skin weekly. [facility] exenatide microsphere s (BYDUREON) 2 mg/0.65 mL injection 02-13 00:00: 00 Yes [id number] 2mg inject 0.65 mL under the skin weekly. [facility] exenatide microsphere s (BYDUREON) 2 mg/0.65 mL injection 02-13 00:00: 00 Yes [id number] 2mg inject 0.65 mL under the skin weekly. [facility] exenatide microsphere s (BYDUREON) 2 mg/0.65 mL injection 02-13 00:00: 00 Yes [id number] 2mg inject 0.65 mL under the skin weekly. [facility] exenatide microsphere s (BYDUREON) 2 mg/0.65 mL injection 02-13 00:00: 00 Yes [id number] 2mg inject 0.65 mL under the skin weekly. [facility] exenatide microsphere s (BYDUREON) 2 mg/0.65 mL injection 02-13 00:00: 00 Yes [id number] 2mg inject 0.65 mL under the skin weekly. [facility] exenatide microsphere s (BYDUREON) 2 mg/0.65 mL injection 02-13 00:00: 00 Yes [id number] 2mg inject 0.65 mL under the skin weekly. [facility] exenatide microsphere s (BYDUREON) 2 mg/0.65 mL injection 02-13 00:00: 00 Yes [id number] 2mg inject 0.65 mL under the skin weekly. [facility] ity [facility] exenatide microsphere s (BYDUREON) 2 mg/0.65 mL injection 02-13 00:00: 00 Yes [id number] 2mg inject 0.65 mL under the skin weekly. [facility] 01-11 00:00: 00 Yes [id number] 50mg Take 1 tablet by mouth every 6 (six) hours as needed for Pain (scale 4-6). Indication s: [facility] 2 mg injection 01-11 00:00: 00 Yes [id number] 2mg inject 2 mg under the skin every 7 (seven) days. [facility] tablet 01-11 00:00: 00 Yes [id number] 50mg Take 1 tablet by mouth every 6 (six) hours as needed for Pain (scale 4-6). Indication s: acute pain [facility] exenatide microsphere s 2 mg injection 0 01-11 00:00: 00 Yes [id number] 2mg inject 2 mg under the skin every 7 (seven) days. [facility] traMADoL 50 mg tablet 0 01-11 00:00: 00 Yes [id number] 50mg Take 1 tablet by mouth every 6 (six) hours as needed for Pain (scale 4-6). Indication s: acute pain [facility] exenatide microsphere s 2 mg injection 0 01-11 00:00: 00 Yes [id number] 2mg inject 2 mg under the skin every 7 (seven) days. [facility] traMADoL 50 mg tablet 01-11 00:00: 00 Yes [id number] 50mg Take 1 tablet by mouth every 6 (six) hours as needed for Pain (scale 4-6). Indication s: acute pain [facility] exenatide microsphere s 2 mg injection 01-11 00:00: 00 Yes [id number] 2mg inject 2 mg under the skin every 7 (seven) days. [facility] traMADoL 50 mg tablet 01-11 00:00: 00 Yes [id number] 50mg Take 1 tablet by mouth every 6 (six) hours as needed for Pain (scale 4-6). Indication s: acute pain [facility] exenatide microsphere s 2 mg injection 0 01-11 00:00: 00 Yes [id number] 2mg inject 2 mg under the skin every 7 (seven) days. [facility] traMADoL 50 mg tablet 0 01-11 00:00: 00 Yes [id number] 50mg Take 1 tablet by mouth every 6 (six) hours as needed for Pain (scale 4-6). Indication s: acute pain [facility] exenatide microsphere s 2 mg injection 0 01-11 00:00: 00 Yes [id number] 2mg inject 2 mg under the skin every 7 (seven) days. [facility] traMADoL 50 mg tablet 0 01-11 00:00: 00 Yes [id number] 50mg Take 1 tablet by mouth every 6 (six) hours as needed for Pain (scale 4-6). Indication s: acute pain [facility] exenatide microsphere s 2 mg injection 01-11 00:00: 00 Yes [id number] 2mg inject 2 mg under the skin every 7 (seven) days. [facility] traMADoL 50 mg tablet 01-11 00:00: 00 Yes [id number] 50mg Take 1 tablet by mouth every 6 (six) hours as needed for Pain (scale 4-6). Indication s: acute pain [facility] exenatide microsphere s 2 mg injection 01-11 00:00: 00 Yes [id number] 2mg inject 2 mg under the skin every 7 (seven) days. [facility] 01-11 00:00: 00 Yes [id number] 50mg Take 1 tablet by mouth every 6 (six) hours as needed for Pain (scale 4-6). Indication s: acute pain [facility] exenatide microsphere s 2 mg injection 01-11 00:00: 00 Yes [id number] 2mg inject 2 mg under the skin every 7 (seven) days. [facility] traMADoL 50 mg tablet 01-11 00:00: 00 Yes [id number] 50mg Take 1 tablet by mouth every 6 (six) hours as needed for Pain (scale 4-6). Indication s: acute pain [facility] exenatide microsphere s 2 mg injection 01-11 00:00: 00 Yes [id number] 2mg inject 2 mg under the skin every 7 (seven) days. [facility] 01-11 00:00: 00 Yes [id number] 50mg Take 1 tablet by mouth every 6 (six) hours as needed for Pain (scale 4-6). Indication s: acute pain [facility] exenatide microsphere s 2 mg injection 0 01-11 00:00: 00 Yes [id number] 2mg inject 2 mg under the skin every 7 (seven) days. [facility] traMADoL 50 mg tablet 2020-0 01-11 00:00: 00 Yes [id number] 50mg Take 1 tablet by mouth every 6 (six) hours as needed for Pain (scale 4-6). Indication s: acute pain [facility] exenatide microsphere s 2 mg injection 2020-0 01-11 00:00: 00 Yes [id number] 2mg inject 2 mg under the skin every 7 (seven) days. [facility] traMADoL 50 mg tablet 0 01-11 00:00: 00 Yes [id number] 50mg Take 1 tablet by mouth every 6 (six) hours as needed for Pain (scale 4-6). Indication s: acute pain [facility] exenatide microsphere s 2 mg injection 01-11 00:00: 00 Yes [id number] 2mg inject 2 mg under the skin every 7 (seven) days. [facility] 2020-01-11 00:00: 00 Yes [id number] 50mg Take 1 tablet by mouth every 6 (six) hours as needed for Pain (scale 4-6). Indication s: acute pain [facility] exenatide microsphere s 2 mg injection 01-11 00:00: 00 Yes [id number] 2mg inject 2 mg under the skin every 7 (seven) days. [facility] tablet 0 01-11 00:00: 00 Yes [id number] 50mg Take 1 tablet by mouth every 6 (six) hours as needed for Pain (scale 4-6). Indication s: acute pain [facility] exenatide microsphere s 2 mg injection 2020-0 01-11 00:00: 00 Yes [id number] 2mg inject 2 mg under the skin every 7 (seven) days. [facility] traMADoL 50 mg tablet 2020-0 01-11 00:00: 00 Yes [id number] 50mg Take 1 tablet by mouth every 6 (six) hours as needed for Pain (scale 4-6). Indication s: acute pain [facility] exenatide microsphere s 2 mg injection 2020-0 01-11 00:00: 00 Yes [id number] 2mg inject 2 mg under the skin every 7 (seven) days. [facility] traMADoL 50 mg tablet 2020-0 01-11 00:00: 00 Yes [id number] 50mg Take 1 tablet by mouth every 6 (six) hours as needed for Pain (scale 4-6). Indication s: acute pain [facility] exenatide microsphere s 2 mg injection 0 01-11 00:00: 00 Yes [id number] 2mg inject 2 mg under the skin every 7 (seven) days. [facility] traMADoL 50 mg tablet 2020-0 01-11 00:00: 00 Yes [id number] 50mg Take 1 tablet by mouth every 6 (six) hours as needed for Pain (scale 4-6). Indication s: acute pain [facility] exenatide microsphere s 2 mg injection 2020-0 01-11 00:00: 00 Yes [id number] 2mg inject 2 mg under the skin every 7 (seven) days. [facility] traMADoL 50 mg tablet 0 01-11 00:00: 00 Yes [id number] 50mg Take 1 tablet by mouth every 6 (six) hours as needed for Pain (scale 4-6). Indication s: acute pain [facility] exenatide microsphere s 2 mg injection 01-11 00:00: 00 Yes [id number] 2mg inject 2 mg under the skin every 7 (seven) days. [facility] 2020-0 01-11 00:00: 00 Yes [id number] 50mg Take 1 tablet by mouth every 6 (six) hours as needed for Pain (scale 4-6). Indication s: acute pain [facility] exenatide microsphere s 2 mg injection 2020-0 01-11 00:00: 00 Yes [id number] 2mg inject 2 mg under the skin every 7 (seven) days. [facility] traMADoL 50 mg tablet 2020-0 01-11 00:00: 00 Yes [id number] 50mg Take 1 tablet by mouth every 6 (six) hours as needed for Pain (scale 4-6). Indication s: acute pain [facility] exenatide microsphere s 2 mg injection 01-11 00:00: 00 Yes [id number] 2mg inject 2 mg under the skin every 7 (seven) days. [facility] traMADoL 50 mg tablet 01-11 00:00: 00 Yes [id number] 50mg Take 1 tablet by mouth every 6 (six) hours as needed for Pain (scale 4-6). Indication s: acute pain [facility] exenatide microsphere s 2 mg injection 01-11 00:00: 00 Yes [id number] 2mg inject 2 mg under the skin every 7 (seven) days. [facility] traMADoL 50 mg tablet 01-11 00:00: 00 Yes [id number] 50mg Take 1 tablet by mouth every 6 (six) hours as needed for Pain (scale 4-6). Ind[facility]: [facility] mg injection 01-11 00:00: 00 Yes [id number] 2mg inject 2 mg under the skin every 7 (seven) days. [facility] traMADoL 50 mg tablet 01-11 00:00: 00 Yes [id number] 50mg Take 1 tablet by mouth every 6 (six) hours as needed for Pain (scale 4-6). Indication s: acute pain [facility] exenatide microsphere s 2 mg injection 01-11 00:00: 00 Yes [id number] 2mg inject 2 mg under the skin every 7 (seven) days. [facility] traMADoL 50 mg tablet 01-11 00:00: 00 Yes [id number] 50mg Take 1 tablet by mouth every 6 (six) hours as needed for Pain (scale 4-6). Indication s: acute pain [facility] exenatide microsphere s 2 mg injection 01-11 00:00: 00 Yes [id number] 2mg inject 2 mg under the skin every 7 (seven) days. [facility] traMADoL 50 mg tablet 01-11 00:00: 00 Yes [id number] 50mg Take 1 tablet by mouth every 6 (six) hours as needed for Pain (scale 4-6). Indication [facility]: [facility] mg injection 01-11 00:00: 00 Yes [id number] 2mg inject 2 mg under the skin every 7 (seven) days. [facility] traMADoL 50 mg tablet 01-11 00:00: 00 Yes [id number] 50mg Take 1 tablet by mouth every 6 (six) hours as needed for Pain (scale 4-6). Indication s: acute pain [facility] exenatide microsphere s 2 mg injection 01-11 00:00: 00 Yes [id number] 2mg inject 2 mg under the skin every 7 (seven) days. [facility] traMADoL 50 mg tablet 01-11 00:00: 00 Yes [id number] 50mg Take 1 tablet by mouth every 6 (six) hours as needed for Pain (scale 4-6). Indication s: acute pain [facility] exenatide microsphere s 2 mg injection 01-11 00:00: 00 Yes [id number] 2mg inject 2 mg under the skin every 7 (seven) days. [facility] traMADoL 50 mg tablet 01-11 00:00: 00 Yes [id number] 50mg Take 1 tablet by mouth every 6 (six) hours as needed for Pain (scale 4-6). Indication s: acute pain [facility] exenatide microsphere s 2 mg injection 01-11 00:00: 00 Yes [id number] 2mg inject 2 mg under the skin every 7 (seven) days. [facility] traMADoL 50 mg tablet 01-11 00:00: 00 Yes [id number] 50mg Take 1 tablet by mouth every 6 (six) hours as needed for Pain (scale 4-6). Indication s: acute pain [facility] exenatide microsphere s 2 mg injection 01-11 00:00: 00 Yes [id number] 2mg inject 2 mg under the skin every 7 (seven) days. [facility] traMADoL 50 mg tablet 2020-0 01-11 00:00: 00 Yes [id number] 50mg Take 1 tablet by mouth every 6 (six) hours as needed for Pain (scale 4-6). Indication s: acute pain [facility] exenatide microsphere s 2 mg injection 0 01-11 00:00: 00 Yes [id number] 2mg inject 2 mg under the skin every 7 (seven) days. [facility] traMADoL 50 mg tablet 2020-0 01-11 00:00: 00 Yes [id number] 50mg Take 1 tablet by mouth every 6 (six) hours as needed for Pain (scale 4-6). Indication s: acute pain [facility] exenatide microsphere s 2 mg injection 0 01-11 00:00: 00 Yes [id number] 2mg inject 2 mg under the skin every 7 (seven) days. [facility] traMADoL 50 mg tablet 01-11 00:00: 00 Yes [id number] 50mg Take 1 tablet by mouth every 6 (six) hours as needed for Pain (scale 4-6). Indication s: acute pain [facility] exenatide microsphere s 2 mg injection 01-11 00:00: 00 Yes [id number] 2mg inject 2 mg under the skin every 7 (seven) days. [facility] traMADoL 50 mg tablet 2020-0 01-11 00:00: 00 Yes [id number] 50mg Take 1 tablet by mouth every 6 (six) hours as needed for Pain (scale 4-6). Indication s: acute pain [facility] exenatide microsphere s 2 mg injection 0 01-11 00:00: 00 Yes [id number] 2mg inject 2 mg under the skin every 7 (seven) days. [facility] traMADoL 50 mg tablet 0 01-11 00:00: 00 Yes [id number] 50mg Take 1 tablet by mouth every 6 (six) hours as needed for Pain (scale 4-6). Indication s: acute pain [facility] exenatide microsphere s 2 mg injection 0 01-11 00:00: 00 Yes [id number] 2mg inject 2 mg under the skin every 7 (seven) days. [facility] traMADoL 50 mg tablet 2020-0 01-11 00:00: 00 Yes [id number] 50mg Take 1 tablet by mouth every 6 (six) hours as needed for Pain (scale 4-6). Indication s: acute pain [facility] exenatide microsphere s 2 mg injection 0 01-11 00:00: 00 Yes [id number] 2mg inject 2 mg under the skin every 7 (seven) days. [facility] traMADoL 50 mg tablet 2020-0 01-11 00:00: 00 Yes [id number] 50mg Take 1 tablet by mouth every 6 (six) hours as needed for Pain (scale 4-6). Indication s: acute pain [facility] exenatide microsphere s 2 mg injection 0 01-11 00:00: 00 Yes [id number] 2mg inject 2 mg under the skin every 7 (seven) days. [facility] traMADoL 50 mg tablet 2020-0 01-11 00:00: 00 Yes [id number] 50mg Take 1 tablet by mouth every 6 (six) hours as needed for Pain (scale 4-6). Indication s: acute pain [facility] exenatide microsphere s 2 mg injection 0 01-11 00:00: 00 Yes [id number] 2mg inject 2 mg under the skin every 7 (seven) days. [facility] 0 01-11 00:00: 00 Yes [id number] 50mg Take 1 tablet by mouth every 6 (six) hours as needed for Pain (scale 4-6). Indication s: acute pain [facility] exenatide microsphere s 2 mg injection 0 01-11 00:00: 00 Yes [id number] 2mg inject 2 mg under the skin every 7 (seven) days. [facility] traMADoL 50 mg tablet 2020-0 01-11 00:00: 00 Yes [id number] 50mg Take 1 tablet by mouth every 6 (six) hours as needed for Pain (scale 4-6). Indication s: acute pain [facility] exenatide microsphere s 2 mg injection 2020-0 - 00:00: 00 Yes [id number] 2mg inject 2 mg under the skin every 7 (seven) days. [facility] traMADoL 50 mg tablet 01-11 00:00: 00 Yes [id number] 50mg Take 1 tablet by mouth every 6 (six) hours as needed for Pain (scale 4-6). Indication s: acute pain [facility] exenatide microsphere s 2 mg injection 01-11 00:00: 00 Yes [id number] 2mg inject 2 mg under the skin every 7 (seven) days. [facility] traMADoL 50 mg tablet 01-11 00:00: 00 Yes [id number] 50mg Take 1 tablet by mouth every 6 (six) hours as needed for Pain (scale 4-6). Indication s: acute pain [facility] exenatide microsphere s 2 mg injection 01-11 00:00: 00 Yes [id number] 2mg inject 2 mg under the skin every 7 (seven) days. [facility] traMADol 50 mg tablet 12-21 00:00: 00 Yes [id number] 50mg Take 1 tablet by mouth every 6 (six) hours as needed (pain). [facility] exenatide microsphere s 2 mg injection 12-21 00:00: 00 Yes [id number] 2mg inject 2 mg under the skin every 7 (seven) days. [facility] atorvastati n 40 mg tablet 11-25 20:46: 55 Yes 40mg Take 40 mg by mouth at bedtime. [facility] pioglitazon e 30 mg tablet 11-25 20:46: 55 Yes 30mg Take 30 mg by mouth daily. [facility] glipiZIDE 10 mg tablet 11-25 20:46: 55 Yes 10mg Take 10 mg by mouth daily. [facility] metFORMIN 500 mg tablet 11-25 20:46: 55 Yes 500mg Take 500 mg by mouth 2 (two) times daily with meals. [facility] atorvastati n 40 mg tablet 11-25 20:46: 55 Yes 40mg Take 40 mg by mouth at bedtime. [facility] pioglitazon e 30 mg tablet 11-25 20:46: 55 Yes 30mg Take 30 mg by mouth daily. [facility] glipiZIDE 10 mg tablet 11-25 20:46: 55 Yes 10mg Take 10 mg by mouth daily. [facility] metFORMIN 500 mg tablet 11-25 20:46: 55 Yes 500mg Take 500 mg by mouth 2 (two) times daily with meals. [facility] atorvastati n 40 mg tablet 11-25 20:46: 55 Yes 40mg Take 40 mg by mouth at bedtime. [facility] pioglitazon e 30 mg tablet 11-25 20:46: 55 Yes 30mg Take 30 mg by mouth daily. [facility] glipiZIDE 10 mg tablet 11-25 20:46: 55 Yes 10mg Take 10 mg by mouth daily. [facility] metFORMIN 500 mg tablet 11-25 20:46: 55 Yes 500mg Take 500 mg by mouth 2 (two) times daily with meals. [facility] atorvastati n 40 mg tablet 11-25 20:46: 55 Yes 40mg Take 40 mg by mouth at bedtime. [facility] pioglitazon e 30 mg tablet 11-25 20:46: 55 Yes 30mg Take 30 mg by mouth daily. [facility] glipiZIDE 10 mg tablet 11-25 20:46: 55 Yes 10mg Take 10 mg by mouth daily. [facility] metFORMIN 500 mg tablet 11-25 20:46: 55 Yes 500mg Take 500 mg by mouth 2 (two) times daily with meals. [facility] atorvastati n 40 mg tablet 11-25 20:46: 55 Yes 40mg Take 40 mg by mouth at bedtime. [facility] pioglitazon e 30 mg tablet 11-25 20:46: 55 Yes 30mg Take 30 mg by mouth daily. [facility] glipiZIDE 10 mg tablet 11-25 20:46: 55 Yes 10mg Take 10 mg by mouth daily. [facility] metFORMIN 500 mg tablet 11-25 20:46: 55 Yes 500mg Take 500 mg by mouth 2 (two) times daily with meals. [facility] atorvastati n 40 mg tablet 11-25 20:46: 55 Yes 40mg Take 40 mg by mouth at bedtime. [facility] pioglitazon e 30 mg tablet 11-25 20:46: 55 Yes 30mg Take 30 mg by mouth daily. [facility] glipiZIDE 10 mg tablet 11-25 20:46: 55 Yes 10mg Take 10 mg by mouth daily. [facility] metFORMIN 500 mg tablet 11-25 20:46: 55 Yes 500mg Take 500 mg by mouth 2 (two) times daily with meals. [facility] atorvastati n 40 mg tablet 11-25 20:46: 55 Yes 40mg Take 40 mg by mouth at bedtime. [facility] pioglitazon e 30 mg tablet 11-25 20:46: 55 Yes 30mg Take 30 mg by mouth daily. [facility] glipiZIDE 10 mg tablet 11-25 20:46: 55 Yes 10mg Take 10 mg by mouth daily. [facility] metFORMIN 500 mg tablet 11-25 20:46: 55 Yes 500mg Take 500 mg by mouth 2 (two) times daily with meals. [facility] amoxicillin -clavulanat e (AUGMENTIN) 875-125 mg per tablet 11-25 00:00: 00 Yes [id number] 1{tbl} Take 1 tablet by mouth 2 (two) times daily. [facility] sulfamethox azole-trime thoprim 800-160 mg per tablet 11-25 00:00: 00 Yes [id number] 1{tbl} Take 1 tablet by mouth 2 (two) times daily. [facility] traMADol 50 mg tablet 11-25 00:00: 00 Yes [id number] 50mg Take 1 tablet by mouth every 6 (six) hours as needed (pain). [facility] amoxicillin -clavulanat e (AUGMENTIN) 875-125 mg per tablet 11-25 00:00: 00 Yes [id number] 1{tbl} Take 1 tablet by mouth 2 (two) times daily. [facility] sulfamethox azole-trime thoprim 800-160 mg per tablet 11-25 00:00: 00 Yes [id number] 1{tbl} Take 1 tablet by mouth 2 (two) times daily. [facility] traMADol 50 mg tablet 11-25 00:00: 00 Yes [id number] 50mg Take 1 tablet by mouth every 6 (six) hours as needed (pain). [facility] amoxicillin -clavulanat e (AUGMENTIN) 875-125 mg per tablet 11-25 00:00: 00 Yes [id number] 1{tbl} Take 1 tablet by mouth 2 (two) times daily. [facility] sulfamethox azole-trime thoprim 800-160 mg per tablet 11-25 00:00: 00 Yes [id number] 1{tbl} Take 1 tablet by mouth 2 (two) times daily. [facility] traMADol 50 mg tablet 11-25 00:00: 00 Yes [id number] 50mg Take 1 tablet by mouth every 6 (six) hours as needed (pain). [facility] amoxicillin -clavulanat e (AUGMENTIN) 875-125 mg per tablet 11-25 00:00: 00 Yes [id number] 1{tbl} Take 1 tablet by mouth 2 (two) times daily. [facility] sulfamethox azole-trime thoprim 800-160 mg per tablet 11-25 00:00: 00 Yes [id number] 1{tbl} Take 1 tablet by mouth 2 (two) times daily. [facility] traMADol 50 mg tablet 11-25 00:00: 00 Yes [id number] 50mg Take 1 tablet by mouth every 6 (six) hours as needed (pain). [facility] amoxicillin -clavulanat e (AUGMENTIN) 875-125 mg per tablet 11-25 00:00: 00 Yes [id number] 1{tbl} Take 1 tablet by mouth 2 (two) times daily. [facility] sulfamethox azole-trime thoprim 800-160 mg per tablet 11-25 00:00: 00 Yes [id number] 1{tbl} Take 1 tablet by mouth 2 (two) times daily. [facility] traMADol 50 mg tablet 11-25 00:00: 00 Yes [id number] 50mg Take 1 tablet by mouth every 6 (six) hours as needed (pain). [facility] amoxicillin -clavulanat e (AUGMENTIN) 875-125 mg per tablet 11-25 00:00: 00 Yes [id number] 1{tbl} Take 1 tablet by mouth 2 (two) times daily. [facility] sulfamethox azole-trime thoprim 800-160 mg per tablet 11-25 00:00: 00 Yes [id number] 1{tbl} Take 1 tablet by mouth 2 (two) times daily. [facility] traMADol 50 mg tablet 11-25 00:00: 00 Yes [id number] 50mg Take 1 tablet by mouth every 6 (six) hours as needed (pain). [facility] amoxicillin -clavulanat e (AUGMENTIN) 875-125 mg per tablet 11-25 00:00: 00 12-21 00:00 :00 No [id number] 1{tbl} Take 1 tablet by mouth 2 (two) times daily. [facility] sulfamethox azole-trime thoprim 800-160 mg per tablet 11-25 00:00: 00 12-21 00:00 :00 No [id number] 1{tbl} Take 1 tablet by mouth 2 (two) times daily. [facility] traMADol 50 mg tablet 11-25 00:00: 00 12-21 00:00 :00 No [id number] 50mg Take 1 tablet by mouth every 6 (six) hours as needed (pain). [facility] No known medications No Un senthil [facility] Vital Signs Vital Name Observation Time Observation Value Comments Mikey corea Systolic blood pressure 2019-12-21 17:49:00 110 mm[Hg] [facility] hospital Diastolic blood pressure 2019-12-21 17:49:00 41 mm[Hg] [place] [facility] Heart rate 2019-12-21 17:49:00 79 /min Unive [facility] Body temperature 2019-12-21 17:49:00 36.78 Yesenia [facility] Respiratory rate 2019-12-21 17:49:00 18 /min [facility] Procedures Procedure Date / Time Performed Performing Clinician Source REFERRAL- REQUEST/RESPONSE 2023-04-20 05:01:00 Doctor Unassigned, Pablo Pena [facility] ASSIGNMENT OF BENEFITS 2022-03-26 12:52:53 Docto r Unassigned, Pablo Pena [facility] REFERRAL- REQUEST/RESPONSE 2022-03-12 05:01:00 Doctor Unassigned, Pablo Pena [facility] PATIENT QUESTIONNAIRE 2019-11-22 06:01:00 Doctor Unassigned, Pablo Pena [facility] REFERRAL- REQUEST/RESPONSE 2019-11-11 06:01:00 Doctor Unassigned, Pablo Pena [facility] Encounters Start Date/Time End Date/Time Encounter Type Admission Type Attending Clinicians Care Facility Care Department Encounter ID Source 2021-08-23 14:59:58 Emergency [facility] [id number] [facility] 2023-11-07 22:28:00 2023-11-23 15:20:00 Inpatient 3 Saurav-May Carlos [facility]AL[facility] [id number] [facility] [facility] 2023-06-05 08:45:00 2023-06-05 08:45:00 Outpatient R JULISA DURAN [facility] [id number] [facility] 2023-04-20 00:00:00 2023-04-20 00:00:00 Orders Only Doctor Unassigned, Pablo Pena [facility] 1.2.840.114 350.1.13.10 4.2.7.2.686 [id number] 009 [id number] [facility] 2023-04-14 00:00:00 2023-04-14 00:00:00 [facility] 1.2.840.114 350.1.13.10 4.2.7.2.686 [id number] 179 [id number] [facility] 2022-08-21 08:00:00 2022-08-21 09:19:07 Outpatient R JULISA DURAN [facility] [id number] [facility] 2022-08-21 08:00:00 2022-08-21 09:19:07 Ancillary Visit Veronica Truong Craig L [facility] 1.2.840.114 350.1.13.10 4.2.7.2.686 [id number] 179 [id number] [facility] 2022-08-14 08:00:00 2022-08-14 09:36:02 Ancillary Visit Veronica Truong Craig L [facility] 1.2.840.114 350.1.13.10 4.2.7.2.686 [id number] 179 [id number] [facility] 2022-08-07 08:00:00 2022-08-07 09:00:00 Ancillary Visit Veronica Truong Craig L [facility] 1.2.840.114 350.1.13.10 4.2.7.2.686 [id number] 179 [id number] [facility] 2022-07-17 08:00:00 2022-07-17 10:33:07 Ancillary Visit Veronica Truong Craig L [facility] 1.2.840.114 350.1.13.10 4.2.7.2.686 [id number] 179 [id number] [facility] 2022-07-11 08:00:00 2022-07-11 09:09:53 Ancillary Visit Alexi Julisa Gomez [facility] 1.2.840.114 350.1.13.10 4.2.7.2.686 [id number] 179 [id number] [facility] 2022-07-09 08:00:00 2022-07-09 09:22:42 Ancillary Visit Veronica Truong Craig L [facility] 1.2.840.114 350.1.13.10 4.2.7.2.686 [id number] 179 [id number] [facility] 2022-07-03 08:00:00 2022-07-03 09:28:51 Ancillary Visit Veronica Truong Craig L [facility] 1.2.840.114 350.1.13.10 4.2.7.2.686 [id number] 179 [id number] [facility] 2022-07-01 08:00:00 2022-07-01 09:42:36 Outpatient R JULISA DURAN [facility] [id number] [facility] 2022-07-01 08:00:00 2022-07-01 09:42:36 Ancillary Visit Veronica Truong Craig L [facility] 1.2.840.114 350.1.13.10 4.2.7.2.686 [id number] 179 [id number] [facility] 2022-06-25 08:00:00 2022-06-25 10:05:28 Ancillary Visit Veronica Truong Craig L [facility] 1.2.840.114 350.1.13.10 4.2.7.2.686 [id number] 179 [id number] [facility] 2022-06-20 08:00:00 2022-06-20 09:40:30 Ancillary Visit Veronica Truong Julisa Guzmán [facility] 1.2.840.114 350.1.13.10 4.2.7.2.686 [id number] 179 [id number] [facility] 2022-06-18 08:00:00 2022-06-18 09:36:15 Ancillary Visit Alexi Julisa [facility] 1.2.840.114 350.1.13.10 4.2.7.2.686 [id number] 179 [id number] [facility] 2022-06-13 08:00:00 2022-06-13 08:45:00 Ancillary Visit Veronica Truong Craig L [facility] 1.2.840.114 350.1.13.10 4.2.7.2.686 [id number] 179 [id number] [facility] 2022-06-10 08:45:00 2022-06-10 09:30:00 Ancillary Visit Alexi Julisa Gomez [facility] 1.2.840.114 350.1.13.10 4.2.7.2.686 [id number] 179 [id number] [facility] 2022-06-06 08:00:00 2022-06-06 10:23:06 Ancillary Visit Veronica Truong Craig L [facility] 1.2.840.114 350.1.13.10 4.2.7.2.686 [id number] 179 [id number] [facility] 2022-06-04 08:00:00 2022-06-04 09:29:06 Ancillary Visit Veronica Truong Craig L [facility] 1.2.840.114 350.1.13.10 4.2.7.2.686 [id number] 179 [id number] [facility] 2022-05-30 08:00:00 2022-05-30 10:18:46 Ancillary Visit Veronica Tru[facility] 1.2.840.114 350.1.13.10 4.2.7.2.686 [id number] 179 [id number] [facility] 2022-05-28 08:00:00 2022-05-28 10:30:25 Outpatient R JULISA DURAN [facility] [id number] [facility] 2022-05-28 08:00:00 2022-05-28 08:45:00 Ancillary Visit Veronica Truong Craig L [facility] 1.2.840.114 350.1.13.10 4.2.7.2.686 [id number] 179 [id number] [facility] 2022-05-23 08:00:00 2022-05-23 09:06:40 Ancillary Visit Veronica Truong Craig L [facility] 1.2.840.114 350.1.13.10 4.2.7.2.686 [id number] 179 [id number] [facility] 2022-05-09 09:30:00 2022-05-09 10:33:51 Ancillary Visit Veronica Truong Craig L [facility] 1.2.840.114 350.1.13.10 4.2.7.2.686 [id number] 179 [id number] [facility] 2022-05-07 10:15:00 2022-05-07 11:02:32 Ancillary Visit Veronica Truong Craig L [facility] 1.2.840.114 350.1.13.10 4.2.7.2.686 [id number] 179 [id number] [facility] 2022-05-05 00:00:00 2022-05-05 00:00:00 Logan Bergman yoselin [facility] 1.2.840.114 350.1.13.10 4.2.7.2.686 [id number] 044 [id number] [facility] 2022-05-05 00:00:00 2022-05-05 00:00:00 Logan Bergman [facility] 1.2.840.114 350.1.13.10 4.2.7.2.686 [id number] 044 [id number] [facility] 2022-04-30 08:45:00 2022-04-30 08:45:00 Outpatient JULISA AREVALO [facility] [id number] [facility] 2022-04-30 00:00:00 2022-04-30 00:00:00 Case Management Veronica Truong [facility] 1.2.840.114 350.1.13.10 4.2.7.2.686 [id number] 179 [id number] [facility] 2022-04-24 14:30:00 2022-04-24 15:42:45 Ancillary Visit Veronica Truong Craig L [facility] 1.2.840.114 350.1.13.10 4.2.7.2.686 [id number] 179 [id number] [facility] 2022-04-17 08:00:00 2022-04-17 09:00:00 Ancillary Visit Veronica Truong Craig L [facility] 1.2.840.114 350.1.13.10 4.2.7.2.686 [id number] 179 [id number] [facility] 2022-04-11 08:00:00 2022-04-11 09:00:00 Ancillary Visit Alexi Julisa Gomez [facility] 1.2.840.114 350.1.13.10 4.2.7.2.686 [id number] [facility] 2022-04-09 08:00:00 2022-04-09 09:00:00 Ancillary Visit Alexi Julisa Gomez [facility] 1.2.840.114 350.1.13.10 4.2.7.2.686 [id number] 179 [id number] [facility] 2022-04-04 08:00:00 2022-04-04 09:00:00 Ancillary Visit Alexi Julisa Gomez [facility] 1.2.840.114 350.1.13.10 4.2.7.2.686 [id number] 179 [id number] [facility] 2022-04-01 08:00:00 2022-04-01 09:00:00 Ancillary Visit Alexi Julisa Gomez [facility] 1.2.840.114 350.1.13.10 4.2.7.2.686 [id number] 179 [id number] [facility] 2022-03-26 08:00:00 2022-03-26 10:37:03 Outpatient R JULISA DURAN [facility] [id number] [facility] 2022-03-26 08:00:00 2022-03-26 10:37:03 Ancillary Visit Niyah Mckeon Craig L [facility] 1.2.840.114 350.1.13.10 4.2.7.2.686 [id number] 179 [id number] [facility] 2022-03-26 00:00:00 2022-03-26 00:00:00 Orders Only Doctor Unassigned, Pablo Pena [facility] 1.2.840.114 350.1.13.10 4.2.7.2.686 [id number] [id number] [facility] 2022-03-12 00:00:00 2022-03-12 00:00:00 Orders Only Doctor Unassigned, Pablo Pena [facility] 1.2840.114 350.1.13.10 4.2.7.2.686 [id number] [id number] [facility] 2022-02-10 00:00:00 2022-02-10 00:00:00 [facility] 1.2.840.114 350.1.13.10 4.2.7.2.686 [id number] [id number] [facility] 2021-11-29 00:00:00 2021-11-29 00:00:00 Logan Bergman [facility] 1.2.840.114 350.1.13.10 4.2.7.2.686 [id number] 044 [id number] [facility] 2021-09-12 00:00:00 2021-09-12 00:00:00 [facility] 1.2.840.114 350.1.13.10 4.2.7.2.686 [id number] 044 [id number] [facility] 2021-08-19 00:00:00 2021-08-19 00:00:00 Logan Bergman [facility] 1.2.840.114 350.1.13.10 4.2.7.2.686 [id number] 044 [id number] [facility] 2021-08-13 00:00:00 2021-08-13 00:00:00 Logan Bergman [facility] 1.2.840.114 350.1.13.10 4.2.7.2.686 [id number] 044 [id number] [facility] 2021-07-13 00:00:00 2021-07-13 00:00:00 [facility] 1.2.840.114 350.1.13.10 4.2.7.2.686 [id number] 044 [id number] [facility] 2021-06-24 00:00:00 2021-06-24 00:00:00 [facility] 1.2.840.114 350.1.13.10 4.2.7.2.686 [id number] 044 [id number] [facility] 2020-09-05 10:15:00 2020-09-05 10:15:00 Outpatient LOGAN HESTER [facility] [id number] [facility] 2020-06-25 11:40:00 2020-06-25 11:40:00 Outpatient KATE GOMEZ [facility] [id number] [facility] 2020-06-06 15:45:00 2020-06-06 15:45:00 Outpatient LOGAN HESTER [facility] [id number] [facility] 2020-05-09 16:15:00 2020-05-09 16:15:00 Outpatient LOGAN HESTER [facility] [id number] [facility] 2020-03-20 09:15:00 2020-03-20 09:15:00 Outpatient LOGAN HESTER [facility] [id number] [facility] 2020-01-25 11:00:00 2020-01-25 11:00:00 Outpatient JULISA AREVALO [facility] [id number] [facility] 2019-12-29 09:20:00 2019-12-29 09:20:00 Outpatient JULISA AREVALO [facility] [id number] [facility] 2019-12-21 11:42:25 2019-12-21 11:57:25 Office Visit Logan Lance [facility] 1.2.840.114 350.1.13.10 4.2.7.2.686 [id number] 044 [id number] [facility] 2019-12-21 11:30:00 2019-12-21 11:30:00 Outpatient R NATALIO LOGAN [facility] [id number] [facility] 2019-12-20 09:00:00 2019-12-20 09:00:00 Outpatient R [facility] [id number] [facility] 2019-12-16 10:07:00 2019-12-16 11:07:00 Ancillary Visit Veronica Truong Craig L [facility] Building 1.2.840.114 350.1.13.10 4.2.7.2.686 [id number] 179 [id number] [facility] 2019-12-14 09:52:14 2019-12-14 10:52:14 Ancillary Visit Veronica Truong Craig L [facility] Building 1.2.840.114 350.1.13.10 4.2.7.2.686 [id number] [facility] 2019-12-09 08:52:58 2019-12-09 10:16:26 Ancillary Visit Veronica Truong Craig L [facility] Building 1.2.840.114 350.1.13.10 4.2.7.2.686 [id number] 179 [id number] [facility] 2019-12-07 08:58:57 2019-12-07 09:58:57 Ancillary Visit Veronica Truong Craig L [facility] Building 1.2.840.114 350.1.13.10 4.2.7.2.686 [id number] [facility] 2019-12-02 08:47:35 2019-12-02 09:47:35 Ancillary Visit [facility] 1.2.840.114 350.1.13.10 4.2.7.2.686 [id number] 179 [id number] [facility] 2019-11-18 09:11:00 2019-11-30 12:53:31 Ancillary Visit [facility]her [facility] 1.2.840.114 350.1.13.10 4.2.7.2.686 [id number] 179 [id number] [facility] 2019-11-30 08:42:50 2019-11-30 09:42:50 Ancillary Visit Veronica Truong Craig L [facility] Building 1.2.840.114 350.1.13.10 4.2.7.2.686 [id number] 179 [id number] [facility] 2019-11-24 08:48:05 2019-11-24 15:06:52 Ancillary Visit Veronica Truong Craig L [facility] nal Building 1.2.840.114 350.1.13.10 4.2.7.2.686 [id number] 179 [id number] [facility] 2019-11-22 08:37:05 2019-11-22 11:36:52 Ancillary Visit Veronica Truong Craig L [facility] Building 1.2.840.114 350.1.13.10 4.2.7.2.686 [id number] 179 [id number] [facility] 2019-11-22 00:00:00 2019-11-22 00:00:00 Orders Only Doctor Unassigned, Pablo Pena [facility] 1.2.840.114 350.1.13.10 4.2.7.2.686 [id number] 009 [id number] [facility] 2019-11-11 00:00:00 2019-11-11 00:00:00 Orders Only Doctor Unassigned, Pablo Pena [facility] 1.2.840.114 350.1.13.10 4.2.7.2.686 [id number] 009 [id number] [facility] Results Test Description Test Time Test Comments Results Result Co mments Source [facility]2023-11-19 14:10:00* Test Item Value Reference Range Interpretation Comme nts WHITE BLOOD CELL COUNT (test code = 11422037) 7.3 Thousand/uL 3.8-10.8 N RED BLOOD CELL COUNT (test code = 32628040) 4.24 Million/uL 4.20-5.80 N HEMOGLOBIN (test code = 36808854) 10.3 g/dL 13.2-17.1 L HEMATOCRIT (test code = 31126690) 34.0 % 38.5-50.0 L MCV (test code = 39511618) 80.2 fL 80.0-100.0 N MCH (test code = 26990085) 24.3 pg 27.0-33.0 L MCHC (test code = 07950654) 30.3 g/dL 32.0-36.0 L RDW (test code = 37438136) 14.5 % 11.0-15.0 N PLATELET COUNT (test code = 05648268) 166 Thousand/uL 140-400 N MPV (test code = 00300289) fL 7.5-12.5 N Due to platelet or RBC variability in size or shapethe result cannot be reported accurately. ABSOLUTE NEUTROPHILS (test code = 38704765) 5015 cells/uL 4674-9283 N ABSOLUTE LYMPHOCYTES (test code = 35229035) 1657 cells/uL 850-3900 N ABSOLUTE MONOCYTES (test code = 84226674) 321 cells/uL 200-950 N ABSOLUTE EOSINOPHILS (test code = 30217719) 277 cells/uL 15-500 N ABSOLUTE BASOPHILS (test code = 87392719) 29 cells/uL 0-200 N NEUTROPHILS (test code = 34811450) 68.7 % N LYMPHOCYTES (test code = 65825433) 22.7 % N MONOCYTES (test code = 50912832) 4.4 % N EOSINOPHILS (test code = 26201945) 3.8 % N BASOPHILS (test code = 11736640) 0.4 % N [facility] [id number] 13:21:00* Test Item Value Reference Range Interpretation Comme nts GLUCOSE (test code = 36927084) 77 mg/dL 65-99 N Fasting referenc e interval UREA NITROGEN (BUN) (test code = 03737622) 15 mg/dL 7-25 N CREATININE (test code = 18866199) 0.79 mg/dL 0.70-1.30 N EGFR (test code = 50719168) 103 mL/min/1.73m2 >=60 N BUN/CREATININE RATIO (test code = 07664001) SEE NOTE: (calc) 6-22 N Not Reported: BUN and Creatinine are within reference range. SODIUM (test code = 85498599) 138 mmol/L 135-146 N POTASSIUM (test code = 66667069) 4.2 mmol/L 3.5-5.3 N CHLORIDE (test code = 85270346) 101 mmol/L 98-110 N CARBON DIOXIDE (test code = 13739552) 28 mmol/L 20-32 N CALCIUM (test code = 29337797) 8.9 mg/dL 8.6-10.3 N [facility] (DIFF/PLT)2023-11-16 13:21:00* Test Item Value Reference Range Interpretation Comme nts WHITE BLOOD CELL COUNT (test code = 53336339) 7.1 Thousand/uL 3.8-10.8 N RED BLOOD CELL COUNT (test code = 87354487) 4.30 Million/uL 4.20-5.80 N HEMOGLOBIN (test code = 41818349) 10.4 g/dL 13.2-17.1 L HEMATOCRIT (test code = 61765850) 34.6 % 38.5-50.0 L MCV (test code = 76314431) 80.5 fL 80.0-100.0 N MCH (test code = 38761181) 24.2 pg 27.0-33.0 L MCHC (test code = 35612132) 30.1 g/dL 32.0-36.0 L RDW (test code = 25936537) 14.5 % 11.0-15.0 N PLATELET COUNT (test code = 00402819) 154 Thousand/uL 140-400 N MPV (test code = 81628674) fL 7.5-12.5 N Due to platelet or RBC variability in size or shapethe result cannot be reported accurately. ABSOLUTE NEUTROPHILS (test code = 85824799) 4665 cells/uL 7537-3710 N ABSOLUTE LYMPHOCYTES (test code = 88106592) 1818 cells/uL 850-3900 N ABSOLUTE MONOCYTES (test code = 53973900) 320 cells/uL 200-950 N ABSOLUTE EOSINOPHILS (test code = 36130106) 270 cells/uL 15-500 N ABSOLUTE BASOPHILS (test code = 83991630) 28 cells/uL 0-200 N NEUTROPHILS (test code = 43966476) 65.7 % N LYMPHOCYTES (test code = 86629586) 25.6 % N MONOCYTES (test code = 72419165) 4.5 % N EOSINOPHILS (test code = 81739753) 3.8 % N BASOPHILS (test code = 93744256) 0.4 % N [facility] [id number] 12:29:00* Test Item Value Reference Range Interpretation Comme nts GLUCOSE (test code = 48675057) 103 mg/dL 65-99 H Fasting referenc e interval For someone without known diabetes, a glucose valuebetween 100 and 125 mg/dL is consistent withprediabetes and should be confirmed with afollow-up test. UREA NITROGEN (BUN) (test code = 39399505) 17 mg/dL 7-25 N CREATININE (test code = 46131977) 0.93 mg/dL 0.70-1.30 N EGFR (test code = 11995654) 95 mL/min/1.73m2 >=60 N BUN/CREATININE RATIO (test code = 54994340) SEE NOTE: (calc) 6-22 N Not Reported: BUN an d Creatinine are within reference range. SODIUM (test code = 32698756) 139 mmol/L 135-146 N POTASSIUM (test code = 63914986) 4.4 mmol/L 3.5-5.3 N CHLORIDE (test code = 13404254) 104 mmol/L 98-110 N CARBON DIOXIDE (test code = 02466106) 27 mmol/L 20-32 N CALCIUM (test code = 05723604) 8.3 mg/dL 8.6-10.3 L [facility]PLT[facility]2023-11-12 12:29:00* Test Item Value Reference Range Interpretation Comme nts WHITE BLOOD CELL COUNT (test code = 24376820) 6.5 Thousand/uL 3.8-10.8 N RED BLOOD CELL COUNT (test code = 59433571) 4.12 Million/uL 4.20-5.80 L HEMOGLOBIN (test code = 86508783) 10.0 g/dL 13.2-17.1 L HEMATOCRIT (test code = 96701431) 32.9 % 38.5-50.0 L MCV (test code = 52400535) 79.9 fL 80.0-100.0 L MCH (test code = 72166969) 24.3 pg 27.0-33.0 L MCHC (test code = 56467480) 30.4 g/dL 32.0-36.0 L RDW (test code = 33758735) 14.5 % 11.0-15.0 N PLATELET COUNT (test code = 55933962) 146 Thousand/uL 140-400 N MPV (test code = 93085854) fL 7.5-12.5 N Due to platelet or RBC variability in size or shapethe result cannot be reported accurately. ABSOLUTE NEUTROPHILS (test code = 03760506) 4368 cells/uL 2212-5317 N ABSOLUTE LYMPHOCYTES (test code = 04634896) 1599 cells/uL 850-3900 N ABSOLUTE MONOCYTES (test code = 87852877) 280 cells/uL 200-950 N ABSOLUTE EOSINOPHILS (test code = 92396802) 241 cells/uL 15-500 N ABSOLUTE BASOPHILS (test code = 10761602) 13 cells/uL 0-200 N NEUTROPHILS (test code = 85809283) 67.2 % N LYMPHOCYTES (test code = 59790827) 24.6 % N MONOCYTES (test code = 53425444) 4.3 % N EOSINOPHILS (test code = 69492955) 3.7 % N BASOPHILS (test code = 61765075) 0.2 % N [facility] [id number] 21:25:00* Test Item Value Reference Range Interpretation Comme nts T3 UPTAKE (test code = 34112238) 34 % 22-35 N T4 (THYROXINE), TOTAL (test code = 90613689) 6.4 mcg/dL 4.9-10.5 N FREE T4 INDEX (T7) (test cod e = 29706454) 2.2 1.4-3.8 N TSH (test code = 81051265) 1.55 mIU/L 0.40-4.50 N [facility] [id number] 21:25:00* Test Item Value Reference Range Interpretation Comme nts GLUCOSE (test code = 64855393) 141 mg/dL 65-99 H Fasting referenc e interval For someone without known diabetes, a glucosevalue >125 mg/dL indicates that they may havediabetes and this should be confirmed with afollow-up test. UREA NITROGEN (BUN) (test code = 16080490) 18 mg/dL 7-25 N CREATININE (test code = 14140316) 0.66 mg/dL 0.70-1.30 L EGFR (test code = 14111409) 109 mL/min/1.73m2 >=60 N BUN/CREATININE RATIO (test code = 93404844) 27 (calc) 6-22 H SODIUM (test code = 80384921) 137 mmol/L 135-146 N POTASSIUM (test code = 46919980) 3.9 mmol/L 3.5-5.3 N CHLORIDE (test code = 56464751) 100 mmol/L 98-110 N CARBON DIOXIDE (test code = 12694383) 28 mmol/L 20-32 N CALCIUM (test code = 46926832) 8.6 mg/dL 8.6-10.3 N [facility] (DIFF/PLT)2023-11-10 21:25:00* Test Item Value Reference Range Interpretation Comme nts WHITE BLOOD CELL COUNT (test code = 01278842) 7.6 Thousand/uL 3.8-10.8 N RED BLOOD CELL COUNT (test code = 85036616) 4.35 Million/uL 4.20-5.80 N HEMOGLOBIN (test code = 97849571) 10.5 g/dL 13.2-17.1 L HEMATOCRIT (test code = 66075452) 34.7 % 38.5-50.0 L MCV (test code = 01707377) 79.8 fL 80.0-100.0 L MCH (test code = 69708832) 24.1 pg 27.0-33.0 L MCHC (test code = 92848767) 30.3 g/dL 32.0-36.0 L RDW (test code = 56634850) 14.4 % 11.0-15.0 N PLATELET COUNT (test code = 93467655) 159 Thousand/uL 140-400 N MPV (test code = 84793586) fL 7.5-12.5 N Due to platelet or RBC variability in size or shapethe result cannot be reported accurately. ABSOLUTE NEUTROPHILS (test code = 99977749) 5046 cells/uL 3671-4592 N ABSOLUTE LYMPHOCYTES (test code = 83302366) 2006 cells/uL 850-3900 N ABSOLUTE MONOCYTES (test code = 47235025) 319 cells/uL 200-950 N ABSOLUTE EOSINOPHILS (test code = 93890360) 198 cells/uL 15-500 N ABSOLUTE BASOPHILS (test code = 12045239) 30 cells/uL 0-200 N NEUTROPHILS (test code = 68981633) 66.4 % N LYMPHOCYTES (test code = 83684410) 26.4 % N MONOCYTES (test code = 10351622) 4.2 % N EOSINOPHILS (test code = 90976466) 2.6 % N BASOPHILS (test code = 75413977) 0.4 % N [facility] W/RFL [id number] 21:25:00* Test Item Value Reference Range Interpretation Comme nts COLOR (test code = 62481974) DARK YELLOW YELLOW N APPEARANCE (test code = 98325235) CLOUDY CLEAR A SPECIFIC GRAVITY (test code = 70716992) 1.021 1.001-1.035 N PH (test code = 38201697) 5.5 5.0-8.0 N GLUCOSE (test code = 21227442) NEGATIVE NEGATIVE N BILIRUBIN (test code = 64175581) NEGATIVE NEGATIVE N KETONES (test code = 85205917) TRACE NEGATIVE A OCCULT BLOOD (test code = 54371850) NEGATIVE NEGATIVE N PROTEIN (test code = 56294704) 1+ NEGATIVE A NITRITE (test code = 00259181) NEGATIVE NEGATIVE N LEUKOCYTE ESTERASE (test code = 50985599) 2+ NEGATIVE A WBC (test code = 32171974) > OR = 60 /HPF 0-5 A RBC (test code = 44973344) NONE SEEN /HPF 0-2 N SQUAMOUS EPITHELIAL CELLS (test code = 49623731) NONE SEEN /HPF <=5 N BACTERIA (test code = 44725875) MANY /HPF NONE SEEN A HYALINE CAST (test code = 78748174) NONE SEEN /LPF NONE SEEN N NOTE (test code = 95761190) This urine was analyzed for the presence of WBC, RBC, bacteria, casts, and other formed elements. Only those elements seen were reported. [facility] [place] [id number] 21:25:00* Test Item Value Reference Range Interpretation Comme nts SOURCE: (test code = 99720596) URINE STATUS: (test code = 41428589) FINAL ISOLATE 1: (test code = 86442529) Enterobacter cloacae complex A [facility],[id number] 21:25:00* Test Item Value Reference Range Interpretation Comme nts ISOLATE (test code = 41335932) N Enterobacter [place] acae complex AMOXICILLIN/CLAVULANI C (test code = 45036652) 16 R CEFAZOLIN (test code = 07696581) >=64 R For uncomplicate d UTI caused by E. coli,K. pneumoniae or P. mirabilis: Cefazolin issusceptible if LISETTE <32 mcg/mL and predictssusceptible to the oral agents cefaclor, cefdinir,cefpodoxime, cefprozil, cefuroxime, cephalexinand loracarbef. CEFTAZIDIME (test code = 64321234) <=1 S CEFEPIME (test code = 97897507) <=1 S CEFTRIAXONE (test code = 53126062) <=1 S CIPROFLOXACIN (test code = 49626436) <=0.25 S LEVOFLOXACIN (test code = 85698371) <=0.12 S GENTAMICIN (test code = 88039959) <=1 S IMIPENEM (test code = 42350972) <=0.25 S NITROFURANTOIN (test code = 05744488) 64 I PIPERACILLIN/TAZOBACT AM (test code = 06600755) <=4 S TOBRAMYCIN (test code = 50634153) <=1 S TRIMETHOPRIM/SULFA (test code = 04882623) >=320 R Legend:S = Susce ptible I = IntermediateR = Resistant NS = Not susceptible* = Not tested NR = Not reportedNN = See antimicrobic comments [facility] [id number] 21:25:00* Test Item Value Reference Range Interpretation Comme nts REFLEXIVE URINE CULTURE (test code = 81829843) CULTURE I NDICATED - RESULTS TO FOLLOW [facility] MET [id number] 10:09:00* Test Item Value Reference Range Interpretation Comme nts GLUCOSE (test code = 20188616) 141 mg/dL 65-99 H Fasting referenc e interval For someone without known diabetes, a glucosevalue >125 mg/dL indicates that they may havediabetes and this should be confirmed with afollow-up test. UREA NITROGEN (BUN) (test code = 72120005) 18 mg/dL 7-25 N CREATININE (test code = 15857534) 0.66 mg/dL 0.70-1.30 L EGFR (test code = 08145634) 109 mL/min/1.73m2 >=60 N BUN/CREATININE RATIO (test code = 19749622) 27 (calc) 6-22 H SODIUM (test code = 01175036) 137 mmol/L 135-146 N POTASSIUM (test code = 52358874) 3.9 mmol/L 3.5-5.3 N CHLORIDE (test code = 82913962) 100 mmol/L 98-110 N CARBON DIOXIDE (test code = 99950696) 28 mmol/L 20-32 N CALCIUM (test code = 20387190) 8.6 mg/dL 8.6-10.3 N [facility] (DIFF/PLT)2023-11-10 10:09:00* Test Item Value Reference Range Interpretation Comme nts WHITE BLOOD CELL COUNT (test code = 84172759) 7.6 Thousand/uL 3.8-10.8 N RED BLOOD CELL COUNT (test code = 91818531) 4.35 Million/uL 4.20-5.80 N HEMOGLOBIN (test code = 56274776) 10.5 g/dL 13.2-17.1 L HEMATOCRIT (test code = 18100592) 34.7 % 38.5-50.0 L MCV (test code = 84013196) 79.8 fL 80.0-100.0 L MCH (test code = 78267302) 24.1 pg 27.0-33.0 L MCHC (test code = 49915350) 30.3 g/dL 32.0-36.0 L RDW (test code = 68929144) 14.4 % 11.0-15.0 N PLATELET COUNT (test code = 36367518) 159 Thousand/uL 140-400 N MPV (test code = 86207339) fL 7.5-12.5 N Due to platelet or RBC variability in size or shapethe result cannot be reported accurately. ABSOLUTE NEUTROPHILS (test code = 75548247) 5046 cells/uL 0735-2090 N ABSOLUTE LYMPHOCYTES (test code = 82085553) 2006 cells/uL 850-3900 N ABSOLUTE MONOCYTES (test code = 56619075) 319 cells/uL 200-950 N ABSOLUTE EOSINOPHILS (test code = 77844162) 198 cells/uL 15-500 N ABSOLUTE BASOPHILS (test code = 66918569) 30 cells/uL 0-200 N NEUTROPHILS (test code = 41884972) 66.4 % N LYMPHOCYTES (test code = 16313887) 26.4 % N MONOCYTES (test code = 75643591) 4.2 % N EOSINOPHILS (test code = 80508393) 2.6 % N BASOPHILS (test code = 55950610) 0.4 % N [facility] W/RFL [id number] 10:09:00* Test Item Value Reference Range Interpretation Comme nts COLOR (test code = 42863194) DARK YELLOW YELLOW N APPEARANCE (test code = 04804584) CLOUDY CLEAR A SPECIFIC GRAVITY (test code = 38875814) 1.021 1.001-1.035 N PH (test code = 62643416) 5.5 5.0-8.0 N GLUCOSE (test code = 26889620) NEGATIVE NEGATIVE N BILIRUBIN (test code = 77914009) NEGATIVE NEGATIVE N KETONES (test code = 66196414) TRACE NEGATIVE A OCCULT BLOOD (test code = 14255997) NEGATIVE NEGATIVE N PROTEIN (test code = 96031516) 1+ NEGATIVE A NITRITE (test code = 32396848) NEGATIVE NEGATIVE N LEUKOCYTE ESTERASE (test code = 86696854) 2+ NEGATIVE A WBC (test code = 70559903) > OR = 60 /HPF 0-5 A RBC (test code = 08018893) NONE SEEN /HPF 0-2 N SQUAMOUS EPITHELIAL CELLS (test code = 94755947) NONE SEEN /HPF <=5 N BACTERIA (test code = 68658517) MANY /HPF NONE SEEN A HYALINE CAST (test code = 84957258) NONE SEEN /LPF NONE SEEN N NOTE (test code = 63149908) This urine was analyzed for the presence of WBC, RBC, bacteria, casts, and other formed elements. Only those elements seen were reported. [facility], UR [id number] 10:09:00* Test Item Value Reference Range Interpretation Comme nts SOURCE: (test code = 62126846) URINE STATUS: (test code = 07457368) PRELIMINARY ISOLATE 1: (test code = 53976414) Gram negative bacilli isolated A [facility],[id number] 10:09:00* Test Item Value Reference Range Interpretation Comme nts ISOLATE (test code = 69008099) N Gram negative ba cilli isolated [facility] [id number] 10:09:00* Test Item Value Reference Range Interpretation Comme nts REFLEXIVE URINE CULTURE (test code = 77982384) CULTURE I NDICATED - RESULTS TO FOLLOW [facility]EL [id number] 10:09:00* Test Item Value Reference Range Interpretation Comme nts T3 UPTAKE (test code = 44059120) 34 % 22-35 N T4 (THYROXINE), TOTAL (test code = 81347886) 6.4 mcg/dL 4.9-10.5 N FREE T4 INDEX (T7) (test cod e = 10623875) 2.2 1.4-3.8 N TSH (test code = 02239260) 1.55 mIU/L 0.40-4.50 N [facility]ITAL[facility] META [id number] 21:49:00* Test Item Value Reference Range Interpretation Comme nts GLUCOSE (test code = 05282504) 117 mg/dL 65-99 H Fasting referenc e interval For someone without known diabetes, a glucose valuebetween 100 and 125 mg/dL is consistent withprediabetes and should be confirmed with afollow-up test. UREA NITROGEN (BUN) (test code = 12202518) 18 mg/dL 7-25 N CREATININE (test code = 48265102) 0.61 mg/dL 0.70-1.30 L EGFR (test code = 40948130) 111 mL/min/1.73m2 >=60 N BUN/CREATININE RATIO (test code = 37623085) 30 (calc) 6-22 H SODIUM (test code = 54331231) 137 mmol/L 135-146 N POTASSIUM (test code = 25179745) 4.4 mmol/L 3.5-5.3 N CHLORIDE (test code = 94655702) 102 mmol/L 98-110 N CARBON DIOXIDE (test code = 52141708) 26 mmol/L 20-32 N CALCIUM (test code = 94876212) 8.7 mg/dL 8.6-10.3 N PROTEIN, TOTAL (test code = 98186129) 6.5 g/dL 6.1-8.1 N ALBUMIN (test code = 37298955) 3.7 g/dL 3.6-5.1 N GLOBULIN (test code = 69138576) 2.8 g/dL (calc) 1.9-3.7 N ALBUMIN/GLOBULIN RATIO (test code = 69366082) 1.3 (calc) 1.0-2.5 N BILIRUBIN, TOTAL (test code = 88460664) 0.5 mg/dL 0.2-1.2 N ALKALINE PHOSPHATASE (test code = 31319053) 112 U/L 35-144 N AST (test code = 07283317) 17 U/L 10-35 N ALT (test code = 05527055) 17 U/L 9-46 N [facility] TIME WITH [id number] 21:49:00* Test Item Value Reference Range Interpretation Comme nts INR (test code = 66084951) 1.1 N Reference Range 0.9-1.1Moderate-intensity Warfarin Therapy 2.0-3.0Higher-intensity Warfarin Therapy 3.0-4.0 PT (test code = 98263558) 11.4 sec 9.0-11.5 N For additional information, please refer [email or web address] (This link is being provided for informational/educational purposes only.) [facility] (DIFF/PLT)2023-11-09 21:49:00* Test Item Value Reference Range Interpretation Comme nts WHITE BLOOD CELL COUNT (test code = 87735138) 8.0 Thousand/uL 3.8-10.8 N RED BLOOD CELL COUNT (test code = 42555461) 4.25 Million/uL 4.20-5.80 N HEMOGLOBIN (test code = 38535564) 10.1 g/dL 13.2-17.1 L HEMATOCRIT (test code = 61639454) 33.9 % 38.5-50.0 L MCV (test code = 80090609) 79.8 fL 80.0-100.0 L MCH (test code = 76326613) 23.8 pg 27.0-33.0 L MCHC (test code = 52166023) 29.8 g/dL 32.0-36.0 L RDW (test code = 50954152) 14.5 % 11.0-15.0 N PLATELET COUNT (test code = 82750613) 149 Thousand/uL 140-400 N MPV (test code = 03255438) fL 7.5-12.5 N Due to platelet or RBC variability in size or shapethe result cannot be reported accurately. ABSOLUTE NEUTROPHILS (test code = 61917371) 5928 cells/uL 7575-6246 N ABSOLUTE LYMPHOCYTES (test code = 49900443) 1560 cells/uL 850-3900 N ABSOLUTE MONOCYTES (test code = 80317907) 336 cells/uL 200-950 N ABSOLUTE EOSINOPHILS (test code = 71660544) 160 cells/uL 15-500 N ABSOLUTE BASOPHILS (test code = 34210705) 16 cells/uL 0-200 N NEUTROPHILS (test code = 78148323) 74.1 % N LYMPHOCYTES (test code = 86843845) 19.5 % N MONOCYTES (test code = 35701794) 4.2 % N EOSINOPHILS (test code = 70315530) 2.0 % N BASOPHILS (test code = 11933523) 0.2 % N [facility]PITALHEMOGLOBIN [id number] 20:16:00* Test Item Value Reference Range Interpretation Comme nts HEMOGLOBIN A1c (test code = 74324883) 10.3 % of total Hgb <5.7 H For someone without known diabetes, a hemoglobin P5wezmqr of 6.5% or greater indicates that they may have diabetes and this should be confirmed with a follow-up test. For someone with known diabetes, a value <7% indicates that their diabetes is well controlled and a value greater than or equal to 7% indicates suboptimal control. A1c targets should be individualized based on duration of diabetes, age, comorbid conditions, and other considerations. Currently, no consensus exists regarding use ofhemoglobin A1c for diagnosis of diabetes for children. HbA1c performed on Kathy platform.Effective 09/07/23 a change in test platforms may have shifted HbA1c results compared to historical results. [facility]
[2024-01-11 19:43] LABS: Absolute Eosinophils 0.2 K/uL (0-0.5); Absolute Lymphocytes (CBC) 1.7 K/uL (0.7-4.9); Absolute Monocytes 0.4 K/uL (0.1-1.3); Absolute Neutrophil 6.3 K/uL (1.8-8.0); Basophils % 0.6 % (0-1.3); Eosinophils % 1.8 % (0-4.4); Hematocrit 34.5 % (39.6-49.0); Hemoglobin 11.1 g/dL (13.6-17.9); Lymphocytes % 20.1 % (15.3-44.8); MCH 24.8 pg (27.0-35.0); MCHC 32.3 g/dL (32.0-36.0); MCV 76.8 fL (80-100); MPV 10.1 fL (7.6-11.3); Monocytes % 4.9 % (3.3-12.3); Neutrophils % 72.6 % (41.7-73.7); Nucleated Red Blood Cells % 0.1 % (0-0); Platelets 158 thou/uL (152-406); RBC Red Blood Cell Count 4.49 M/uL (4.33-5.43); Red Cell Distribution Width 16.9 % (12.1-15.2)
[2024-01-11 20:00] LABS: Anion Gap 6.9 mEq/L (5.0-15.0); Potassium 3.9 mEq/L (3.5-5.1); Troponin High Sensitivity 6.7 pg/mL (<58.9)
--- NOTE | 2024-01-11 20:55 | RAD REPORT ---
EXAM DESCRIPTION: CT - Head Brain Wo Cont - 01/11/2024 8:04 pm CLINICAL HISTORY: CONFUSED COMPARISON: No comparisons TECHNIQUE: Noncontrast head CT images were obtained without IV contrast. Multiplanar reformats were generated and reviewed. All CT scans are performed using dose optimization technique as appropriate and may include automated exposure control or mA/KV adjustment according to patient size. FINDINGS: No intracranial hemorrhage, mass, or edema. Midline structures are unremarkable. Normal ventricular caliber for age. Dupree-white matter differentiation is preserved, without evidence of acute infarct. Small arachnoid cy st along the most anterior left middle cranial fossa. No other abnormal extra-axial fluid collections . Mastoid air cells and visualized portions of the paranasal sinuses are clear. No acute bony findings. IMPRESSION: No evidence of an acute intracranial process.
[2024-01-11] MEDS ORDERED: ONDANSETRON 4 MG/2 ML VIAL IV PRN (21:08)
[2024-01-11] MEDS ORDERED: ACETAMINOPHEN 500 MG TAB PO PRN (21:08)
[2024-01-11] MEDS ORDERED: NITROGLYCERIN 0.4 MG/TAB SL PRN (21:08)
[2024-01-11] MEDS ORDERED: MORPHINE 4 MG/ML SYR IV PRN (21:08)
--- NOTE | 2024-01-11 21:13 | P.HP ---
Certification for Inpatient Patient admitted to: Observation With expected LOS: <2 Midnights Practitioner: I am a practitioner with admitting privileges, knowledge of patient current condition, hospital course, and medical plan of care. Services: Services provided to patient in accordance with Admission requirements found in Title 42 Section 412.3 of the Code of Federal Regulations Patient History Date of Service: 01/11/24 Allergies No Known Drug Allergies Allergy (Verified 03/24/23 00:07) Unknown Home Medications: Insulin Glargine,Hum.rec.anlog [Basaglar Kwikpen U-100] 30 unit SQ SEECOM 03/24/23 Metformin HCl [Glucophage*] 1,000 mg PO BIDWM 03/24/23 Smz./Tmp. [Bactrim Ds 800 MG/160 MG] 1 tab PO BID 5 Days #10 tab 03/28/23 - Past Medical/Surgical History Diabetic: Yes -: NIDDM -: Lymphedema -: Morbid Obesity -: Kidney stones -: Rt AKA - Social History Alcohol use: No CD- Drugs: No Caffeine use: No Physical Examination - Studies Laboratory Data (last 24 hrs) 01/11/24 01/11/24 19:33 19:33 WBC 8.70 Hgb 11.1 L Hct 34.5 L Plt Count 158 Sodium 135 L Potassium 3.9 BUN 16 Creatinine 0.70 Glucose 133 H Assessment and Plan - Advance Directives Does patient have a Living Will: No Does patient have a Durable POA for Healthcare: No
--- NOTE | 2024-01-11 21:14 | RAD REPORT ---
EXAM DESCRIPTION: RADChest Single View01/11/2024 8:14 pm CLINICAL HISTORY: CHEST PAIN COMPARISON: Chest Single View dated 03/24/2023; Chest Single View dated 01/01/2022; CHEST SINGLE VIEW d ated 06/05/2015; CHEST SINGLE VIEW dated 03/19/2015 TECHNIQUE: Portable AP view of the chest. FINDINGS: Decreased inspiratory effort limits evaluation. The lungs are clear. No pneumothorax or e ffusion. The cardiomediastinal contours are unremarkable. IMPRESSION: No acute cardiopulmonary process.
[2024-01-11] MEDS: TRAMADOL HCL 50 MG TAB PO ONE (22:31)
[2024-01-11] MEDS ORDERED: TRAMADOL HCL 50 MG TAB ONE (22:33)
--- NOTE | 2024-01-11 23:07 | EDPHYS ---
Physician Documentation [facility] Name: Tej Patel Age: 58 yrs Sex: Male : 1965 Arrival Date: 01/11/2024 Time: 19:05 Bed 5 Private MD: ED Physician Venkatesh Ferrell HPI: 01/10 19:23 This 58 yrs old Male presents to ER via EMS with complaints of chest pain. ec2 19:23 Patient arrives today for evaluation of chest tightness. Patient reports several days ec2 of chest tightness, intermittent without specific relieving or exacerbating factors. Patient reports no associated shortness of breath. Patient reports history of multiple medical problems including previous cardiac disease, volume overload. Historical: - Allergies: 20:20 No Known Allergies; rv - PMHx: 20:20 diabetes mellitus; lymphedema; Sleep Apnea; rv 20:20 Congestive heart failure; rv - PSHx: 20:20 R AKA; rv - Immunization history:: Adult Immunizations up to date. - Social history:: Smoking status: Patient denies any tobacco usage or history of. ROS: 19:23 Constitutional: as per hpi ec2 Exam: 19:23 Constitutional: GEN: NAD Head: atraumatic Eyes: EOMI Ears: External ears are ec2 normal. CV: regular rate LUNGS: no respiratory distress ABD: non-distended SKIN: no evidence of rashes MSK: no evidence of trauma Vital Signs: 19:09 BP 149 / 73; Pulse 72; Resp 18; Temp 98.4(O); Pulse Ox 95% on R/A; Weight 158.76 kg; oe Height 6 ft. 0 in. ; 20:24 BP 129 / 67; Pulse 71; Resp 20; Temp 97.5; Pulse Ox 96% on 2 lpm NC; as9 21:00 BP 121 / 63; Pulse 70; Resp 18; Pulse Ox 99% on 2 lpm NC; as9 22:00 BP 132 / 60; Pulse 72; Resp 20; Pulse Ox 95% on 2 lpm NC; as9 23:00 BP 141 / 69; Pulse 79; Resp 18; Pulse Ox 95% on 2 lpm NC; as9 01/11 00:00 BP 126 / 71; Pulse 70; Resp 18; Pulse Ox 96% on 2 lpm NC; as9 00:30 BP 142 / 77; Pulse 88; Resp 20; Temp 97.6; Pulse Ox 95% on 2 lpm NC; as9 18 19:09 Body Mass Index 47.47 (158.76 kg, 182.88 cm) oe MDM: 01/10 19:22 Patient medically screened. ec2 19:23 Data reviewed: vital signs. ED course: Patient arrives today for evaluation of chest ec2 tightness. Examination remarkable for well-appearing nontoxic dividual is otherwise in no acute distress. Will obtain EKG, chest x-ray, lab work. Evaluating for ACS, doubt PE or dissection.. 19:30 ED course: EKG independently reviewed and interpreted by me, shows normal sinus rhythm, ec2 rate of 71, no acute ST segment elevations, intervals nonconcerning.. 20:12 ED course: Metabolic profile reassuring, CBC is reassuring, troponin within normal ec2 ranges.. 01/10 19:22 Order name: Basic Metabolic Panel; Complete Time: 20:11 ec2 01/10 19:22 Order name: CBC with Diff; Complete Time: 20:11 ec2 01/10 19:22 Order name: Troponin HS; Complete Time: 20:11 ec2 01/10 21:14 Order name: Basic Metabolic Panel EDMS 01/10 21:14 Order name: Basic Metabolic Panel EDMS 01/10 21:14 Order name: Basic Metabolic Panel EDMS 01/10 21:14 Order name: Basic Metabolic Panel EDMS 01/10 21:14 Order name: CBC with Automated Diff EDMS 01/10 21:14 Order name: CBC with Automated Diff EDMS 01/10 21:14 Order name: CBC with Automated Diff EDMS 01/10 21:14 Order name: CBC with Automated Diff EDMS 01/10 21:14 Order name: Lipid Profile EDMS 01/10 21:14 Order name: Lipid Profile EDMS 01/10 21:38 Order name: Troponin HS rv 01/10 23:09 Order name: Troponin High Sensitivity EDMS 01/10 19:22 Order name: XRAY Chest (1 view); Complete Time: 23:05 ec2 01/10 19:41 Order name: CT Head Brain wo Cont; Complete Time: 23:05 ec2 01/10 19:22 Order name: EKG; Complete Time: 19:23 ec2 01/10 19:22 Order name: Cardiac monitoring; Complete Time: 19:37 ec2 01/10 19:22 Order name: EKG - Nurse/Tech; Complete Time: 19:37 ec2 01/10 19:22 Order name: IV Saline Lock; Complete Time: 19:37 ec2 01/10 19:22 Order name: Labs collected and sent; Complete Time: 19:37 ec2 01/10 19:22 Order name: O2 Per Protocol; Complete Time: 19:37 ec2 01/10 19:22 Order name: O2 Sat Monitoring; Complete Time: 19:37 ec2 01/10 20:37 Order name: Misc. Order: repeat ekg/trop at 2130; Complete Time: 21:39 ec2 Administered Medications: No medications were administered Disposition Summary: 01/11/24 23:06 Hospitalization Ordered Notes: Hospitalization Status: Observation sammie Provider: Mazin Mcmahan cha Location: Telemetry/MedSurg (observation) sammie Condition: Fair sammie Problem: new sammie Symptoms: have improved sammie Bed/Room Type: [facility] Room Assignment: 427(01/11/24 23:07) km Diagnosis - Chest pain, unspecified sammie - Dyspnea sammie Forms: - Medication Reconciliation Form sammie - SBAR form sammie - Leadership Thank You Letter sammie Signatures: Dispatcher [employer] Venkatesh Plasencia MD MD cha Vicente, Ronaldo RN RN Josue Mayo MD MD [facility] Tiffanie Islas kmf Corrections: (The following items were deleted from the chart) 19:30 19:30 ED course: EKG independently reviewed and interpreted by me, shows normal sinus ec2 rhythm, rate of 71, no acute ST segment elevations, normal nonconcerning.. ec2 23:07 23:06 sammie kmf
--- NOTE | 2024-01-11 23:07 | ER ---
Nurse's Notes [facility] Name: Tej Patel Age: 58 yrs Sex: Male : 1965 Arrival Date: 01/11/2024 Time: 19:05 Bed 5 Private MD: Diagnosis: Chest pain, unspecified;Dyspnea Presentation: 01/10 19:07 Chief complaint: EMS states: pt is bed bound, hx of CHF, SOB last week and treated with rv Lasix, got better, PCP took him off the Lasix, got SOB again, PCP put him back on Lasix which is now not working, 94% on room air, chest pain with SOB today. Coronavirus screen: At this time, the client does not indicate any symptoms associated with coronavirus-19. Ebola Screen: No symptoms or risks identified at this time. Initial Sepsis Screen: Does the patient meet any 2 criteria? No. Patient's initial sepsis screen is negative. Does the patient have a suspected source of infection? No. Patient's initial sepsis screen is negative. Risk Assessment: Do you want to hurt yourself or someone else? Patient reports no desire to harm self or others. Onset of symptoms was January 11, 2024. 19:07 Method Of Arrival: EMS: [facility] rv 19:07 Acuity: DAVID 2 rv Triage Assessment: 19:07 General: Appears comfortable, Behavior is calm, cooperative. Pain: Complains of pain in rv chest. Neuro: Level of Consciousness is awake, alert, obeys commands, Oriented to person, place, time, situation. Cardiovascular: Capillary refill < 3 seconds Patient's skin is warm and dry. Respiratory: Reports shortness of breath at rest Airway is patent Respiratory effort is even, unlabored, Breath sounds are clear bilaterally. GI: No signs and/or symptoms were reported involving the gastrointestinal system. : No signs and/or symptoms were reported regarding the genitourinary system. Derm: Skin is intact. Historical: - Allergies: 20:20 No Known Allergies; rv - PMHx: 20:20 diabetes mellitus; lymphedema; Sleep Apnea; rv 20:20 Congestive heart failure; rv - PSHx: 20:20 R AKA; rv - Immunization history:: Adult Immunizations up to date. - Social history:: Smoking status: Patient denies any tobacco usage or history of. Screenin:13 [facility] ED Fall Risk Assessment (Adult) History of falling in the last 3 months, rv including since admission No falls in past 3 months (0 pts) Score/Fall Risk Level 0 - 2 = Low Risk Oriented to surroundings, Maintained a safe environment, Educated pt \T\ family on fall prevention, incl call for assistance when getting out of bed, Assessed \T\ reinforced patient's understanding of fall precautions. Abuse screen: Denies threats or abuse. Denies injuries from another. Nutritional screening: No deficits noted. Tuberculosis screening: No symptoms or risk factors identified. Vital Signs: 19:09 BP 149 / 73; Pulse 72; Resp 18; Temp 98.4(O); Pulse Ox 95% on R/A; Weight 158.76 kg; oe Height 6 ft. 0 in. ; 20:24 BP 129 / 67; Pulse 71; Resp 20; Temp 97.5; Pulse Ox 96% on 2 lpm NC; as9 21:00 BP 121 / 63; Pulse 70; Resp 18; Pulse Ox 99% on 2 lpm NC; as9 22:00 BP 132 / 60; Pulse 72; Resp 20; Pulse Ox 95% on 2 lpm NC; as9 23:00 BP 141 / 69; Pulse 79; Resp 18; Pulse Ox 95% on 2 lpm NC; as9 01/11 00:00 BP 126 / 71; Pulse 70; Resp 18; Pulse Ox 96% on 2 lpm NC; as9 00:30 BP 142 / 77; Pulse 88; Resp 20; Temp 97.6; Pulse Ox 95% on 2 lpm NC; as9 01/10 19:09 Body Mass Index 47.47 (158.76 kg, 182.88 cm) oe ED Course: 18 19:07 Patient arrived in ED. rv 19:07 Arm band placed on right wrist. rv 19:08 Josue Mayo MD is Attending Physician. ec2 19:12 Triage completed. rv 19:13 Patient has correct armband on for positive identification. Client placed on continuous rv cardiac and pulse oximetry monitoring. NIBP monitoring applied. 19:13 No provider procedures requiring assistance completed. rv 19:18 Bed in low position. Side rails up X2. oe 19:20 Warm blanket given. oe 19:22 EKG done, by remote sensing technician. reviewed by Josue Mayo MD. oe 19:37 Inserted saline lock: 20 gauge in left forearm, using aseptic technique. Blood rv collected. 20:06 CT Head Brain wo Cont In Process Unspecified. EDMS 20:16 XRAY Chest (1 view) In Process Unspecified. EDMS 23:04 Attending Physician role handed off by Josue Mayo MD [facility] 23:04 Venkatesh Ferrell MD is Attending Physician. sammie 23:05 Mazin Mcmahan MD is Hospitalizing Provider. sammie 23:26 Venkatesh Ferrell MD is Attending Physician. [facility] 01/11 00:51 Patient admitted, IV remains in place. as9 01:00 Provided Education on: need for admit. as9 Administered Medications: No medications were administered Medication: 01/10 19:14 VIS not applicable for this client. rv Outcome: 23:06 Decision to Hospitalize by Provider. [facility] 01/11 00:49 Admitted to Tele accompanied by nurse, accompanied by tech, via stretcher, with oxygen, as9 Condition: good Instructed on the need for admit, 01:05 Patient left the ED. as9 Signatures: Dispatcher [employer] Venkatesh Plasencia MD MD cha Espinosa, [place] oe Vicente, Ronaldo, RN RN rv Josue Mayo MD MD [facility] Josse Manriquez, RN RN as9
[2024-01-12 01:43] VITALS: BMI 51.5
[2024-01-12 07:04] LABS: Absolute Eosinophils 0.1 K/uL (0-0.5); Absolute Lymphocytes (CBC) 1.3 K/uL (0.7-4.9); Absolute Monocytes 0.3 K/uL (0.1-1.3); Absolute Neutrophil 5.7 K/uL (1.8-8.0); Basophils % 0.2 % (0-1.3); Hematocrit 34.9 % (39.6-49.0); Hemoglobin 11.2 g/dL (13.6-17.9); Lymphocytes % 17.2 % (15.3-44.8); MCH 24.6 pg (27.0-35.0); MCV 76.9 fL (80-100); MPV 10.6 fL (7.6-11.3); Neutrophils % 77.6 % (41.7-73.7); Nucleated Red Blood Cells % 0.1 % (0-0); Platelets 143 thou/uL (152-406); RBC Red Blood Cell Count 4.54 M/uL (4.33-5.43); Red Cell Distribution Width 17.1 % (12.1-15.2)
[2024-01-12 07:23] LABS: Anion Gap 4.8 mEq/L (5.0-15.0); Potassium 3.8 mEq/L (3.5-5.1)
[2024-01-12] MEDS: ASPIRIN EC 81 MG TAB PO SCH (08:21)
[2024-01-12] MEDS: ENOXAPARIN 40 MG/0.4 ML SQ SCH (08:21)
--- NOTE | 2024-01-12 09:59 | P.PN ---
Subjective Date of Service: 01/12/24 Admitted with chest pain, dizziness, Serial troponins are negative Review of Systems Per HPI Physical Examination - Vital Signs Temperature: 97.2 F Blood Pressure: 165/72 Pulse: 75 Respirations: 18 Pulse Ox (%): 98 - Physical Exam General: Alert, In no apparent distress, Oriented x3 HEENT: Atraumatic, Normocephalic Neck: 2+ carotid pulse no bruit, JVD not distended Respiratory: Clear to auscultation bilaterally, Normal air movement Cardiovascular: Normal pulses, Regular rate/rhythm Gastrointestinal: Normal bowel sounds, Soft and benign Musculoskeletal: No clubbing, No swelling Neurological: Normal speech, Normal tone - Studies Laboratory Data (last 24 hrs) 01/11/24 01/11/24 19:33 19:33 WBC 8.70 Hgb 11.1 L Hct 34.5 L Plt Count 158 Sodium 135 L Potassium 3.9 BUN 16 Creatinine 0.70 Glucose 133 H Assessment And Plan - Plan Assessment plan Chest pain rule out OR Cardiology consult, telemetry, Serial troponins negative As needed analgesics, lipid panel, nitro, aspirin, 149 / 73; Pulse 72; Resp 18; Temp 98.4(O); Pulse Ox 95% on R/A; ER EKG independently reviewed and interpreted by me, shows normal sinus rhythm, ec2 rate of 71, no acute ST segment elevations, Diabetes type 2 unknown control Accu-Chek ACHS, sliding scale insulin History of lymphedema Obstructive sleep apnea Resume appropriate home meds Full code DVT Lovenox Diet cardiac Disposition, home independently Discharge Plan: Home - Code Status/Comfort Care Code Status: Full Code Critical Care: No Time Spent Managing PTS Care (In Minutes): 35
[2024-01-12] MEDS ORDERED: GLUCAGON 1 MG/VIAL IM PRN (11:04)
[2024-01-12] MEDS ORDERED: D50W 25 GM/50 ML SYRINGE IV PRN (11:04)
--- NOTE | 2024-01-12 11:12 | P.HP ---
Certification for Inpatient Patient admitted to: Inpatient With expected LOS: >2 Midnights Patient will require the following post-hospital care: Fdc Practitioner: I am a practitioner with admitting privileges, knowledge of patient current condition, hospital course, and medical plan of care. Services: Services provided to patient in accordance with Admission requirements found in Title 42 Section 412.3 of the Code of Federal Regulations Patient History Date of Service: 01/12/24 Primary Care Provider: Jorge Reason for admission: chest pain, severe protein energy malnutrition History of Present Illness: Patient is an office patient of Mrs Patel's He was recently in a PT center. However after going home he quickly became bed bound. States he can barely move his arms. Chronically wheelchair bound with Lymphadema. He was on lasix. Was documented his pcp stopped this. Most likely this is a miscommunication as the patient is Mostly [place] Speaking. He was starting to have some chest pressure last night and came to the hospital. He had a negative troponin. Allergies No Known Drug Allergies Allergy (Verified 03/24/23 00:07) Unknown Home Medications: Metformin HCl [Glucophage*] 1,000 mg PO BIDWM 03/24/23 Calcium Carbonate [Oyster Shell Calcium] 500 mg PO DAILY 01/12/24 Cholecalciferol (Vitamin D3) [Vitamin D3] 25 mcg PO BEDTIME 01/12/24 Docusate [Colace Cap] 100 mg PO DAILY 01/12/24 Fluticasone [Flonase 50mcg Nasal [place]] 2 sprays NS BEDTIME 01/12/24 Furosemide [Lasix] 40 mg PO DAILY 01/12/24 Gabapentin 300 mg PO TID 01/12/24 Insulin Degludec [Tresiba Flextouch U-200] 9 unit SQ DAILY 01/12/24 Tamsulosin [Flomax] 0.4 mg PO DAILY 01/12/24 Tramadol HCl [Ultram] 50 mg PO TIDP PRN 01/12/24 - Past Medical/Surgical History Has patient received pneumonia vaccine in the past: Yes Diabetic: Yes -: IDDM -: Lymphedema -: Morbid Obesity -: Kidney stones -: severe neuropathy -: Rt AKA - Social History Smoking Status: Never smoker Alcohol use: No CD- Drugs: No Caffeine use: No Place of Residence: Home Review of Systems 10-point ROS is otherwise unremarkable General: Weakness Cardiovascular: Edema Gastrointestinal: Constipation Physical Examination - Vital Signs Temperature: 97.2 F Blood Pressure: 165/72 Pulse: 75 Respirations: 18 Pulse Ox (%): 98 - Physical Exam General: Alert, In no apparent distress HEENT: Atraumatic, PERRLA, Mucous membr. moist/pink, EOMI, Sclerae nonicteric Neck: Supple, 2+ carotid pulse no bruit, No LAD, Without JVD or thyroid abnormality Respiratory: Clear to auscultation bilaterally, Normal air movement Cardiovascular: Regular rate/rhythm, Normal S1 S2 Gastrointestinal: Normal bowel sounds, No tenderness Musculoskeletal: No tenderness Integumentary: No rashes Neurological: Normal gait, Normal speech, Normal strength at 5/5 x4 extr, Normal tone, Normal affect Lymphatics: No axilla or inguinal lymphadenopathy - Studies Laboratory Data (last 24 hrs) 01/11/24 01/11/24 19:33 19:33 WBC 8.70 Hgb 11.1 L Hct 34.5 L Plt Count 158 Sodium 135 L Potassium 3.9 BUN 16 Creatinine 0.70 Glucose 133 H Assessment and Plan - Problems (Diagnosis) (1) CHF (congestive heart failure), NYHA class II Current Visit: Yes Status: Chronic Plan: Most likely diastolic dysfunction. Would have been worsened by bed bound status. So far his troponins are negative. He has a cardiology consult. Will get an echocardiogram. Switch him from lasix to entresto. Will start qday and increase to bid as tolerated. Qualifiers: Congestive heart failure type: diastolic Congestive heart failure chronicity: chronic Qualified Code(s): I50.32 - Chronic diastolic (congestive) heart failure (2) Severe calorie deficiency Current Visit: Yes Status: Chronic Plan: Patient has been bed bound for a few weeks. Was seen by his PCP on 12/31 via telehealth. He is getting weaker and having more difficulty getting out of bed or seeing his providers. Will consult PT and social services aide. He may need Medicaid and be sent to a NH for longer PT. He states that he was doing well with 3 hours of PT. However he lost all the progress he made in a week week when he went home. (3) Abnormality of penis Current Visit: Yes Status: Chronic Plan: He needs a prajapati to monitor fluid and I's and O's Will consult Dr. Skinner to place as he has a retracted penis (4) Type 2 diabetes mellitus without complications Current Visit: No Status: Acute Plan: will start him on a sliding scale and home insulin dosage Qualifiers: Diabetes mellitus intermediate designer insulin use: with [facility] use Qualified Code(s): E11.9 - Type 2 diabetes mellitus without complications; Z79.4 - [facility] (current) use of insulin (5) Diabetic neuropathy associated with type 2 diabetes mellitus Current Visit: Yes Status: Acute Plan: will start him on his home insulin. Start pregabalin and gabapentin. Will check an a1c Qualifiers: Diabetes mellitus complication detail: diabetic polyneuropathy Qualified Code(s): E11.42 - Type 2 diabetes mellitus with diabetic polyneuropathy - Advance Directives Does patient have a Living Will: No Does patient have a Durable POA for Healthcare: No - Code Status/Comfort Care Code Status Assessed: No Physician Review: Patient Assessed, Agree with Above Assessment and Plan Critical Care: No Time Spent Managing Pts Care (In Minutes): 70
[2024-01-12] MEDS ORDERED: D10W 125 ML IV PRN (11:15)
[2024-01-12] MEDS: INSULIN REGULAR (HUMAN) 100 UNIT/ML SQ SCH (11:30)
--- NOTE | 2024-01-12 14:06 | EKG ---
Test Date: 2024-01-11 Test Time: 20:45:19 Resource Development Director: EDYTA MEASUREMENT RESULTS: Intervals: Rate: 75 ND: 178 QRSD: 106 QT: 414 QTc: 462 [place]: P: 41 ND: 178 QRS: -20 T: 29 INTERPRETIVE STATEMENTS: Normal sinus rhythm Normal ECG Compared to ECG 01/11/2024 19:14:31 Accelerated junctional rhythm no longer present Electronically Signed On 01-12-24 14:05:04 CDT by Roby Medrano
--- NOTE | 2024-01-12 14:07 | EKG ---
Test Date: 2024-01-11 Test Time: 19:14:31 Inspector Fuel Hose: EDYTA MEASUREMENT RESULTS: Intervals: Rate: 71 ID: QRSD: 98 QT: 394 QTc: 428 [place]: P: ID: QRS: -24 T: 27 INTERPRETIVE STATEMENTS: Accelerated Junctional rhythm Abnormal ECG No previous ECG available for comparison Electronically Signed On 01-12-24 14:05:11 CDT by Roby Medrano
[2024-01-12] MEDS: TRAMADOL HCL 50 MG TAB PO PRN (14:58)
[2024-01-12] MEDS: POLYETHYL GLY 3350 17 GM/DOSE PO ONE (15:46)
--- NOTE | 2024-01-12 16:31 | P.CNS ---
Date of Consult: 01/12/24 Primary Care Provider: Jorge Chief Complaint: chest pain, severe protein energy malnutrition History of Present Illness: Patient with PMH of lymphedema, PAD, right above knee amputation, disability, use wheel chair to move around, presented with chest pressure sensation yesterday that lasted all day, in the middle of the chest, radiated to both arms, also report some SOB, no syncope, no palpitations. Allergies No Known Drug Allergies Allergy (Verified 03/24/23 00:07) Unknown Home Medications: Metformin HCl [Glucophage*] 1,000 mg PO BIDWM 03/24/23 Calcium Carbonate [Oyster Shell Calcium] 500 mg PO DAILY 01/12/24 Cholecalciferol (Vitamin D3) [Vitamin D3] 25 mcg PO BEDTIME 01/12/24 Docusate [Colace Cap] 100 mg PO DAILY 01/12/24 Fluticasone [Flonase 50mcg Nasal [place]] 2 sprays NS BEDTIME 01/12/24 Furosemide [Lasix] 40 mg PO DAILY 01/12/24 Gabapentin 300 mg PO TID 01/12/24 Insulin Degludec [Tresiba Flextouch U-200] 9 unit SQ DAILY 01/12/24 Tamsulosin [Flomax] 0.4 mg PO DAILY 01/12/24 Tramadol HCl [Ultram] 50 mg PO TIDP PRN 01/12/24 - Past Medical/Surgical History Diabetic: Yes -: IDDM -: Lymphedema -: Morbid Obesity -: Kidney stones -: severe neuropathy -: Rt AKA - Social History Smoking Status: Unknown if ever smoked Alcohol use: No CD- Drugs: No Caffeine use: No Place of Residence: Home Review of Systems 10-point ROS is otherwise unremarkable Physical Examination Temp Pulse Resp BP Pulse Ox 99.1 F 77 18 142/67 H 98 01/12/24 12:00 01/12/24 12:00 01/12/24 12:00 01/12/24 12:00 01/12/24 12:00 General: Alert, Oriented x3 HEENT: Atraumatic Neck: Supple Respiratory: Clear to auscultation bilaterally Cardiovascular: No edema, Normal S1 S2 Gastrointestinal: Normal bowel sounds Laboratory Data (last 24 hrs) 01/11/24 01/11/24 19:33 19:33 WBC 8.70 Hgb 11.1 L Hct 34.5 L Plt Count 158 Sodium 135 L Potassium 3.9 BUN 16 Creatinine 0.70 Glucose 133 H - Problems (1) Chest pain Current Visit: Yes Status: Acute Plan: Troponins are negative but patient got multiple risk factors and will need stress test. please keep patient NPO after midnight for nuclear stress test in am. (2) CHF (congestive heart failure), NYHA class II Current Visit: Yes Status: Chronic Plan: please get repeated Echo. hard to assess patient volume status due to history of lymphedema. agree with Entresto Qualifiers: Congestive heart failure type: diastolic Congestive heart failure chronicity: chronic Qualified Code(s): I50.32 - Chronic diastolic (congestive) heart failure (3) HTN (hypertension) Current Visit: No Status: Acute Plan: start patient on coreg 3.125 mg po BID Qualifiers: Hypertension type: primary hypertension (4) Hyperlipidemia associated with type 2 diabetes mellitus Current Visit: No Status: Chronic Plan: Patient most recent lipid panel is normal. Continue Lipitor 40 mg daily.
[2024-01-12] MEDS ORDERED: ENOXAPARIN 40 MG/0.4 ML SQ SCH (17:00)
[2024-01-12] MEDS: ATORVASTATIN 40 MG TAB PO SCH (20:03)
[2024-01-12] MEDS: PREGABALIN 75 MG CAP PO SCH (20:03)
[2024-01-12] MEDS: GABAPENTIN 300 MG CAP PO SCH (20:03)
[2024-01-12] MEDS: LIDOCAINE JELLY 2% 5 ML SYRINGE TOP ONE ×2 (21:23→21:42)
[2024-01-12] MEDS: LIDOCAINE 1% MPF 30 ML VIAL ONE (21:47)
[2024-01-12] MEDS: LIDOCAINE 1% 20 ML MDV ONE (21:47)
[2024-01-12] MEDS: BACITRACIN OINTMENT 14 GM TUBE TOP ONE (21:48)
--- NOTE | 2024-01-12 23:29 | P.CNS ---
Date of Consult: 01/12/24 Reason for Consult: incomplete emptying/LUTS Requesting Physician: Zhou Drake Primary Care Provider: Jorge Chief Complaint: chest pain, severe protein energy malnutrition History of Present Illness: 58-year-old gentleman now bedbound with history of IDDM, Lymphedema, Morbid Obesity, and severe neuropathy with history of nephrolithiasis and s/p Rt AKA ad mitted with CHF exacerbation but with difficulty voiding and suspected large volume incomplete emptying. Given the patient's need for diuresis, my assistance was requested to manage placement of a urethral Mendoza catheter, also because patient's phallus was retracted and inaccessible by nursing. The patient describes having had significant difficulty voiding despite having the urge to do so over the last several hours of his hospital admission. Past medical history: As above Past surgical history: As above No known drug allergies Social history: Denies any history of smoking Examination: Patient lying slightly recumbent in the hospital bed in no acute distress No dyspnea or sign of respiratory distress Wearing a depends undergarment with other pads surrounding the genitalia collecting and wet from urine Phallus assessed and significant phimosis with BXO changes evident, and a pinpoint opening imperceptible. Assessment, counseling and recommendation: 58-year-old gentleman now bedbound with history of IDDM, Lymphedema, Morbid Obesity, and severe neuropathy with history of nephrolithiasis and s/p Rt AKA admitted with CHF exacerbation but with obstructive LUTS and suspected large volume incomplete emptying. -I counseled the patient that given the phimosis and BXO changes also given the limitation of any bladder scan attempt at postvoid residual assessment, I recommended a urethral Mendoza catheter be placed. He agreed. Attempted urethral Mendoza catheter placement procedure note: The patient was placed more supine/flat and tolerated that well with no dyspnea. I utilized a 18 Mal[place]ian catheter insertion kit to prep the phallus and attempt to insert the swab sticks into the pinpoint opening of the foreskin and ultimately prepping around the glans. I then attempted to inject lidocaine Uro- Jet blindly by feeling the entry of the tip of the Uro-Jet into the putative meatal opening, but I was not confident of the Uro-Jet actually entering his urethra. I then attempted to pass the 18 [place] catheter by feel beyond the pinpoint opening of the foreskin, which I had just stretched open, using the swab sticks, but despite several attempts, was unable to pass the catheter successfully into the meatus and his urethra. -As a result, I counseled the patient again that I would need to perform a dorsal slit to be able to visualize the meatus so that I could see what obstruction may be present there that prohibited placement of the Mendoza catheter. He agreed. Dorsal slit, meatal dilation using sounds, and complicated [place] tipped catheter placement over a wire procedure note: I thus prepped further around the phallus at its base and the infrapubic fat pad circumferentially with the Betadine. I then draped it off further using sterile drape 3 associated with the kits used. 1% lidocaine was drawn up into a 10 cc syringe, and I administered approximately 8 cc of the lidocaine subcutaneously in the dorsal region of the foreskin and the shaft skin of the penis throughout the length that was only approximately 2 to 3 cm. I then utilized a straight snap to clamp the dorsal foreskin in the midline, leaving the tip of a Betadine swab stick in the opening of the foreskin protecting the glans, and I clamped to achieve a little bit more room on the left and the right side of the initially placed clamp to create a wider ischemic area. Approximately 2 centimeters of dorsal length was clamped, and once the tissue was crushed and hemostatic, I divided the tissue in the crust region. The patient was a sensate during this process. I then utilized a 3-0 chromic suture dipped in bacitracin and sutured the cut edges of the dorsal slit in a running baseball stitch fashion to ensure hemostasis. I was then able to visualize the glans penis better, and the meatus was visible and stenotic. I thus utilized urethral sounds to dilate the meatus from 14 Maldivian to 20 Maldivian with relative ease. Attempts to place the 18 [place] straight catheter would not work because of the angulation and significant skin thickening on the ventral surface of the penis that made placement of the catheter impossible. As a result, after several attempts, I then used a Stefany clamp to hold open the inferior border of the foreskin so I can visualize the meatus, and I then passed a sensor wire via the meatus ultimately into his bladder. Over the sensor wire, I passed a 16 [place] tip Mendoza catheter successfully into his bladder with return of clear yellow urine. 20 cc of sterile water was placed in the balloon and the catheter was connected to a floor bag. It was then secured to a StatLock. He tolerated the procedure well and without any obvious complications, and he suggested he was only having some mild discomfort in the penis. The catheter did decompress of approximately 1100 cc of clear yellow urine. Final assessment and recommendations: 58-year-old gentleman now bedbound with history of IDDM, Lymphedema, Morbid Obesity, and severe neuropathy with history of nephrolithiasis and s/p Rt AKA admitted with CHF exacerbation with obstructive LUTS and large volume incomplete emptying/1200 cc urinary retention in the setting of dense phimosis p bedside dorsal slit, BXO, and meatal stenosis p meatal dilation and complicated Mendoza catheter placement. -Flomax 0.4 mg daily if the patient can tolerate it -Lotrisone ointment to the foreskin once daily in the p.m. x 6 weeks -Bacitracin ointment to the foreskin once daily in the a.m. until the dorsal sli t has healed -Ancef x 72 hours (or Keflex) for the dorsal slit performed at bedside -Keep urethral Mendoza catheter until further evaluation as an outpatient can be completed. Patient did indicate that he has significant transportation issues, and since he is bedbound with a right [id number] amputation, this will need to be taken into account as we plan the outpatient evaluation as follows: -Catheter urine culture in 7 to 10 days -Cystoscopy and voiding trial thereafter in my office in 14-21 days. We will need to be prepared to replace the catheter potentially over a wire, but a coud tip may navigate a better dilated meatal opening. -Further management of his foreskin will likely be required, if it does not significantly improve with the ointments applied above; so he will require me dical optimization and clearance ultimately to undergo a modified circumcision and to remove the BXO skin changes. -Additionally, there may be a need for surgical management of any prostatic urethral obstruction, but we will consider a role for 5 alpha reductase inhibitors post cystoscopic evaluation above. Allergies No Known Drug Allergies Allergy (Verified 03/24/23 00:07) Unknown Home medications list reviewed: Yes Home Medications: Metformin HCl [Glucophage*] 1,000 mg PO BIDWM 03/24/23 Calcium Carbonate [Oyster Shell Calcium] 500 mg PO DAILY 01/12/24 Cholecalciferol (Vitamin D3) [Vitamin D3] 25 mcg PO BEDTIME 01/12/24 Docusate [Colace Cap] 100 mg PO DAILY 01/12/24 Fluticasone [Flonase 50mcg Nasal [place]] 2 sprays NS BEDTIME 01/12/24 Furosemide [Lasix] 40 mg PO DAILY 01/12/24 Gabapentin 300 mg PO TID 01/12/24 Insulin Degludec [Tresiba Flextouch U-200] 9 unit SQ DAILY 01/12/24 Tamsulosin [Flomax] 0.4 mg PO DAILY 01/12/24 Tramadol HCl [Ultram] 50 mg PO TIDP PRN 01/12/24 - Past Medical/Surgical History Diabetic: Yes -: IDDM -: Lymphedema -: Morbid Obesity -: Kidney stones -: severe neuropathy -: Rt AKA - Social History Smoking Status: Unknown if ever smoked Alcohol use: No CD- Drugs: No Caffeine use: No Place of Residence: Home Physical Examination Temp Pulse Resp BP Pulse Ox 99.1 F 62 18 143/69 H 93 01/12/24 20:00 01/12/24 20:00 01/12/24 20:00 01/12/24 20:00 01/12/24 20:00 - Problems (1) Acquired phimosis of penis Current Visit: Yes Status: Acute (2) BXO (balanitis xerotica obliterans) Current Visit: Yes Status: Acute (3) Urinary retention Current Visit: Yes Status: Acute (4) Lower urinary tract symptoms (LUTS) Current Visit: Yes Status: Acute Conclusions/Impression: 58-year-old gentleman now bedbound with history of IDDM, Lymphedema, Morbid Obesity, and severe neuropathy with history of nephrolithiasis and s/p Rt AKA admitted with CHF exacerbation with obstructive LUTS and large volume incomplete emptying/1200 cc urinary retention in the setting of dense phimosis p bedside dorsal slit, BXO, and meatal stenosis p meatal dilation and complicated Mendoza catheter placement. -Flomax 0.4 mg daily if the patient can tolerate it -Lotrisone ointment to the foreskin once daily in the p.m. x 6 weeks -Bacitracin ointment to the foreskin once daily in the a.m. until the dorsal slit has healed -Ancef x 72 hours (or Keflex) for the dorsal slit performed at bedside -Keep urethral Mendoza catheter until further evaluation as an outpatient can be completed. Patient did indicate that he has significant transportation issues, and since he is bedbound with a right [id number] amputation, this will need to be taken into account as we plan the outpatient evaluation as follows: -Catheter urine culture in 7 to 10 days -Cystoscopy and voiding trial thereafter in my office in 14-21 days. We will need to be prepared to replace the catheter potentially over a wire, but a coud tip may navigate a better dilated meatal opening. -Further management of his foreskin will likely be required, if it does not significantly improve with the ointments applied above; so he will require medical optimization and clearance ultimately to undergo a modified circumcision and to remove the BXO skin changes. -Additionally, there may be a need for surgical management of any prostatic urethral obstruction, but we will consider a role for 5 alpha reductase inhibitors post cystoscopic evaluation above. Critical Care: No Time Spent Managing Pts care (In Minutes): 100 (bedside surgery performed)
[2024-01-13 05:43] VITALS: TEMP 97.9
[2024-01-13] MEDS: PANTOPRAZOLE 40MG TABLET PO ONE (05:47)
[2024-01-13] MEDS: SACUBITRIL/VALSARTAN 24/26 MG TAB PO SCH (05:57)
[2024-01-13] MEDS: PANTOPRAZOLE 40MG TABLET PO SCH (06:00)
[2024-01-13 07:02] LABS: Anion Gap 8.8 mEq/L (5.0-15.0); Potassium 3.8 mEq/L (3.5-5.1)
[2024-01-13 07:03] LABS: Absolute Eosinophils 0.2 K/uL (0-0.5); Absolute Lymphocytes (CBC) 1.4 K/uL (0.7-4.9); Absolute Monocytes 0.4 K/uL (0.1-1.3); Absolute Neutrophil 5.2 K/uL (1.8-8.0); Basophils % 0.5 % (0-1.3); Eosinophils % 2.8 % (0-4.4); Hematocrit 33.8 % (39.6-49.0); Hemoglobin 10.8 g/dL (13.6-17.9); Lymphocytes % 19.2 % (15.3-44.8); MCH 24.8 pg (27.0-35.0); MCHC 31.9 g/dL (32.0-36.0); MCV 77.5 fL (80-100); MPV 10.1 fL (7.6-11.3); Neutrophils % 72.5 % (41.7-73.7); Nucleated Red Blood Cells % 0.1 % (0-0); Platelets 141 thou/uL (152-406); RBC Red Blood Cell Count 4.36 M/uL (4.33-5.43); Red Cell Distribution Width 17.2 % (12.1-15.2)
--- NOTE | 2024-01-13 08:09 | P.PN ---
Subjective Date of Service: 01/13/24 Primary Care Provider: Jorge Chief Complaint: chest pain, severe protein energy malnutrition Physical Examination - Vital Signs Temperature: 97.9 F Blood Pressure: 130/68 Pulse: 70 Respirations: 18 Pulse Ox (%): 96 Assessment And Plan Physician Review: Patient Assessed, Agree with Above Assessment and Plan
[2024-01-13] MEDS ORDERED: KETOROLAC OPTHALMIC 5 ML BOT OPTH PRN (08:33)
--- NOTE | 2024-01-13 08:36 | P.PN ---
Subjective Date of Service: 01/13/24 Primary Care Provider: Jorge Chief Complaint: chest pain, severe protein energy malnutrition Subjective: Improving (had a bowel movement and a prajapati placed by Dr. Skinner) Review of Systems 10-point ROS is otherwise unremarkable General: Weakness Physical Examination - Vital Signs Temperature: 97.9 F Blood Pressure: 130/68 Pulse: 70 Respirations: 18 Pulse Ox (%): 96 - Physical Exam General: Alert, In no apparent distress HEENT: Atraumatic, PERRLA, EOMI Neck: Supple, JVD not distended Respiratory: Clear to auscultation bilaterally, Normal air movement Cardiovascular: Regular rate/rhythm, Normal S1 S2 Gastrointestinal: Normal bowel sounds, No tenderness Musculoskeletal: No tenderness Integumentary: No rashes Neurological: Normal speech, Normal tone, Normal affect Lymphatics: No axilla or inguinal lymphadenopathy Assessment And Plan - Current Problems (Diagnosis) (1) CHF (congestive heart failure), NYHA class II Current Visit: Yes Status: Chronic Plan: Most likely diastolic dysfunction. Would have been worsened by bed bound status. So far his troponins are negative. He has a cardiology consult. Will get an echocardiogram. Switch him from lasix to entresto. Will start qday and increase to bid as tolerated. Qualifiers: Congestive heart failure type: diastolic Congestive heart failure chronicity: chronic Qualified Code(s): I50.32 - Chronic diastolic (congestive) heart failure (2) Severe calorie deficiency Current Visit: Yes Status: Chronic Plan: Patient has been bed bound for a few weeks. Was seen by his PCP on 12/31 via telehealth. He is getting weaker and having more difficulty getting out of bed or seeing his providers. Will consult PT and nursing home social worker. He may need Medicaid and be sent to a NH for longer PT. He states that he was doing well with 3 hours of PT. However he lost all the progress he made in a week week when he went home. (3) Abnormality of penis Current Visit: Yes Status: Chronic Plan: He needs a prajapati to monitor fluid and I's and O's Will consult Dr. Skinner to place as he has a retracted penis 01/[address] Skinner. May need a chronic prajapati (4) Type 2 diabetes mellitus without complications Current Visit: No Status: Acute Plan: will start him on a sliding scale and home insulin dosage Qualifiers: Diabetes mellitus shelter insulin use: with shelter use Qualified Code(s): E11.9 - Type 2 diabetes mellitus without complications; Z79.4 - [facility] (current) use of insulin (5) Diabetic neuropathy associated with type 2 diabetes mellitus Current Visit: Yes Status: Acute Plan: will start him on his home insulin. Start pregabalin and gabapentin. Will check an a1c Qualifiers: Diabetes mellitus complication detail: diabetic polyneuropathy Qualified Code(s): E11.42 - Type 2 diabetes mellitus with diabetic polyneuropathy Discharge Plan: LTAC Plan to discharge in: Greater than 2 days - Code Status/Comfort Care Code Status Assessed: No Physician Review: Patient Assessed, Agree with Above Assessment and Plan Critical Care: No Time Spent Managing PTS Care (In Minutes): 20
[2024-01-13] MEDS: BACITRACIN OINTMENT 14 GM TUBE TOP SCH (08:57)
[2024-01-13] MEDS: TAMSULOSIN 0.4 MG SR CAP PO SCH (08:57)
[2024-01-13] MEDS: DOCUSATE NA 100 MG CAP PO SCH (08:58)
[2024-01-13] MEDS: HOME MED 1 EA UNK (Insulin Degludec [Tresiba Flextouch U-200] 200 UNIT/ML Insuln.Pen) SQ SCH (08:58)
--- NOTE | 2024-01-13 15:08 | P.DS ---
Admission Date: 01/11/24 Discharge Date: 01/13/24 Primary Care Provider: Jorge Disposition: TRANSFER TO INPATIENT REHAB Discharge Condition: GOOD Reason for Admission: chest pain, severe protein energy malnutrition - Problems (1) CHF (congestive heart failure), NYHA class II Current Visit: Yes Status: Chronic Qualifiers: Congestive heart failure type: diastolic Congestive heart failure chronicity: chronic Qualified Code(s): I50.32 - Chronic diastolic (congestive) heart failure (2) Severe calorie deficiency Current Visit: Yes Status: Chronic (3) Abnormality of penis Current Visit: Yes Status: Chronic (4) Type 2 diabetes mellitus without complications Current Visit: No Status: Acute Qualifiers: Diabetes mellitus usp insulin use: with long distance operator use Qualified Code(s): E11.9 - Type 2 diabetes mellitus without complications; Z79.4 - correction (current) use of insulin (5) Diabetic neuropathy associated with type 2 diabetes mellitus Current Visit: Yes Status: Acute Qualifiers: Diabetes mellitus complication detail: diabetic polyneuropathy Qualified Code(s): E11.42 - Type 2 diabetes mellitus with diabetic polyneuropathy Brief History of Present Illness: Patient is an office patient of Mrs Rose He was recently in a PT center. However after going home he quickly became bed bound. States he can barely move his arms. Chronically wheelchair bound with Lymphadema. He was on lasix. Was documented his pcp stopped this. Most likely this is a miscommunication as the patient is Mostly [place] Speaking. He was starting to have some chest pressure last night and came to the hospital. He had a negative troponin. Hospital Course: Patient was admitted to the hospital for chest pressure and decreased mobility. He is mostly bed bound at home. Had some diuresis and was started on once a day low dose entresto. The patient had negative troponins. Dr. Hernandez agreed to an out patient stress test. He was having constipation and fluid retention. Dr. Skinner place a prajapati at the bedside. He actually need to cut to place the catheter. Will transfer the patient to inpatient rehab. Thank you for allowing me to take part in the patients care. Have spent 40 min on the patients chart Vital Signs/Physical Exam: Temp Pulse Resp BP Pulse Ox 97.9 F 70 18 130/68 96 01/13/24 08:36 01/13/24 08:36 01/13/24 08:36 01/13/24 08:36 01/13/24 08:36 General: Alert, In no apparent distress HEENT: Atraumatic, PERRLA, EOMI Neck: Supple, JVD not distended Respiratory: Clear to auscultation bilaterally, Normal air movement Cardiovascular: Regular rate/rhythm, Normal S1 S2 Gastrointestinal: Normal bowel sounds, No tenderness Musculoskeletal: No tenderness Integumentary: No rashes Neurological: Normal speech, Normal tone, Normal affect Lymphatics: No axilla or inguinal lymphadenopathy Laboratory Data at Discharge: WBC 7.10 thou/uL (4.3-10.9) 01/13/24 06:26 Hgb 10.8 g/dL (13.6-17.9) L 01/13/24 06:26 Hct 33.8 % (39.6-49.0) L 01/13/24 06:26 Plt Count 141 thou/uL (152-406) L 01/13/24 06:26 Sodium 137 mEq/L (136-145) 01/13/24 06:26 Potassium 3.8 mEq/L (3.5-5.1) 01/13/24 06:26 BUN 9 mg/dL (7-18) 01/13/24 06:26 Creatinine 0.49 mg/dL (0.70-1.30) L 01/13/24 06:26 Glucose 103 mg/dL (74-106) 01/13/24 06:26 Triglycerides 72 mg/dL (<150) 01/12/24 06:16 Cholesterol 108 mg/dL (<200) 01/12/24 06:16 HDL Cholesterol 37 mg/dL (40-60) L 01/12/24 06:16 Cholesterol/HDL Ratio 2.92 01/12/24 06:16 Home Medications: Metformin HCl [Glucophage*] 1,000 mg PO BIDWM 03/24/23 Calcium Carbonate [Oyster Shell Calcium] 500 mg PO DAILY 01/12/24 Cholecalciferol (Vitamin D3) [Vitamin D3] 25 mcg PO BEDTIME 01/12/24 Docusate [Colace Cap] 100 mg PO DAILY 01/12/24 Fluticasone [Flonase 50mcg Nasal [place]] 2 sprays NS BEDTIME 01/12/24 Gabapentin 300 mg PO TID 01/12/24 Insulin Degludec [Tresiba Flextouch U-200] 9 unit SQ DAILY 01/12/24 Tamsulosin [Flomax] 0.4 mg PO DAILY 01/12/24 Tramadol HCl [Ultram] 50 mg PO TIDP PRN 01/12/24 Furosemide 40 mg PO DAILY PRN 30 Days #30 tab 01/13/24 Pregabalin [Lyrica*] 75 mg PO DAILY 90 Days #90 cap 01/13/24 Sacubitril/Valsartan [Entresto 24 mg-26 mg Tablet] 1 tab PO [id number] 90 Days #90 tab 01/13/24 New Medications: Sacubitril/Valsartan [Entresto 24 mg-26 mg Tablet] 1 tab PO [id number] 90 Days #90 tab Furosemide 40 mg PO DAILY PRN 30 Days #30 tab PRN Reason: swelling Pregabalin [Lyrica*] 75 mg PO DAILY 90 Days #90 cap Physician Discharge Instructions: [place] [address] P:[phone] Diet: ADA Activity: Ad sujatha Followup: Marilin Patel FNP [OUTSIDE PHYSICIAN] - If your Symptoms Worsen Physician Review: Patient Assessed, Agree with Above Assessment and Plan Time spent managing pt's care (in minutes): 40
[2024-01-13 15:53] VITALS: BP 111/58
[2024-01-13 17:16] VITALS: O2SAT 95
[2024-01-13] MEDS ORDERED: CLOTRIMAZ/BETAMETH CREAM 15GM TOP SCH (19:00)
--- NOTE | 2024-01-14 06:55 | ECHO ---
HEIGHT: 5 ft 9 in WEIGHT: 349 lb 0 oz DATE OF STUDY: 01/13/[address]: Zhou Drake MD 2-DIMENSIONAL: YES M.MODE: YES DOPPLER: YES COLOR FLOW: YES TDS: YES PORTABLE: YES DEFINITY: BUBBLE STUDY: DIAGNOSIS: CHEST PAIN CARDIAC HISTORY: CATHERIZATION: SURGERY: PROSTHETIC VALVE: PACEMAKER: MEASUREMENTS (cm) DIASTOLIC (NORMALS) SYSTOLIC (NORMALS) IVSd 1.1 (0.6-1.2) LA Diam (1.9-4.0) LVEF 63% LVIDd 3.9 (3.5-5.7) LVIDs 2.6 (2.0-3.5) %FS 34% LVPWd 1.0 (0.6-1.2) Ao Diam 3.4 (2.0-3.7) 2 DIMENSIONAL ASSESSMENT: RIGHT ATRIUM: NORMAL LEFT ATRIUM: NORMAL RIGHT VENTRICLE: NORMAL LEFT VENTRICLE: NORMAL TRICUSPID VALVE: NORMAL MITRAL VALVE: NORMAL PULMONIC VALVE: NOT SEEN AORTIC VALVE: NORMAL PERICARDIAL EFFUSION: SMALL AORTIC ROOT: NORMAL LEFT VENTRICULAR WALL MOTION: NORMAL DOPPLER/COLOR FLOW: DIASTOLIC DYSFUNCTION COMMENTS: 1. NORMAL LEFT VENTRICULAR SYSTOLIC FUNCTION, NORMAL WALL MOTION, EJECTION FRACTION 55% 2. DIASTOLIC DYSFUNCTION 3. POOR STUDY TECHNOLOGIST: ISHA GARCIA
== END 2024-01-13 16:20 | DRG 313 ==
LOC: ER 19:05 → ERHOLD 21:08 → 4TH 01-12 00:15 → OBSVTOIN 01-13 14:59
PROVIDERS: ADMIT Internal Medicine
PROC: 0T9B70Z Drainage of Bladder with Drainage Device, Via Natural or Artificial Opening (ICD-10-PCS; principal; 2024-01-12)
DX: R07.9 Chest pain, unspecified (principal); E43 Unspecified severe protein-calorie malnutrition; Z68.43 Body mass index [BMI] 50.0-59.9, adult; I50.32 Chronic diastolic (congestive) heart failure; N47.1 Phimosis; I11.0 Hypertensive heart disease with heart failure; E66.01 Morbid (severe) obesity due to excess calories; N48.0 Leukoplakia of penis; E78.5 Hyperlipidemia, unspecified; E11.42 Type 2 diabetes mellitus with diabetic polyneuropathy; K59.00 Constipation, unspecified; Q55.69 Other congenital malformation of penis; R33.9 Retention of urine, unspecified; Z99.3 Dependence on wheelchair; Z79.4 Long term (current) use of insulin; Z74.01 Bed confinement status; Z79.84 Long term (current) use of oral hypoglycemic drugs; Z79.899 Other long term (current) drug therapy; Z89.611 Acquired absence of right leg above knee
CPT/HCPCS: 36415; 70450; 71045; 80048; 80061; 82947; 83036; 84484; 85025; 87086; 87088; 93005; 93306; 97110; 97161; 99285; G0378; J1650; J1885; J2001

== ENCOUNTER 2024-04-06 17:38 | Inpatient (IN) | payer OTHER ==
--- OUTSIDE RECORDS SUMMARY | 2024-04-06 17:45 | XMS REPORT | Continuity of Care Document ---
Author Name Unknown Address [address] [facility] [address] [place] [address] [facility] thconnect Address [address] [facility] [place] [address] Care Team Providers Care Milliner Helper Name Role Phone RIGO, BRANDIN Nguyen Primary Care Physician Unavailab ADA Mckeon Attending Clinician Unavail able ADA ROBBINS Attending Clinician Unavail able Tania Zimmerman Yijia Attending Clinician Unavailab May Carrasquillo Anavella Attending JEANNIE Cohen Attending Clinician Unavaila JULISA Maguire Attending Clinician Unavailabl e Doctor Unassigned, Sikes Attending Clinician U Veronica Harris PTA Attending Clinician Unavail Julisa Herrera MD Attending Clinician Logan Lance MD Attending Clinician [phone] Niyah Mckeon PT Attending Clinician Un available LOGAN LANCE Attending Clinician KATE Sandoval Attending Clinician Unavailable Nicolasa Castillo PT Attending Clinician Unavailab Tania Murcia Yijia Admitting Clinician Unavailab Marianne Carrasquillo, Reev Admitting Clinician U navailerika Payers Payer Name Policy Type Policy Number Effective Date Expirati on Date Source MEDICARE PART A \T\ B [id number] 2017 00:00:00 [facility] MCR [id number] Problems Condition Name Condition Details Condition Category Status Onset Date Resolution Date Last Treatment Date Treating Clinician Comments Source Chronic edema Chronic edema Disease Active 2019-10 00:00: 00 [facility] Hx of AKA (above knee amputation ), 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 ), right Disease Active 2019-10 00:00: 00 [facility] [id number] 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 Problem [facility] [id number] Acquired phimosis of penis Problem [facility] Leukoplaki a of penis BXO (balanitis xerotica obliterans ) Problem [facility] Allergies, Adverse Reactions, Alerts Allergy Name Allergy Type Status Severity Reaction(s) Onset Date Inactive Date Treating Clinician Comments Source NO KNOWN ALLERGIE S Drug Class Active [facility] Social History Social Habit Start Date Stop Date Quantity Comments Source History of Tobacco Use [facility] Sex Assigned At [facility] Alcohol intake 2020-06-25 00:00:00 2020-06-25 00:00:00 Ex-drinker (finding) [facility] Tobacco use and exposure 2019-11-25 00:00:00 2019-11-25 00:00:00 Smokeless tobacco non-user [facility] Smoking Status Start Date Stop Date Source Unknown if ever smoked [facility] Former Smoker 2024-03-07 00:00:00 2024-03-07 00:00:00 [facility] Never smoked tobacco [facility] Medications Ordered Medication Name Filled Medication Name Start Date Stop Date Current Medication? Ordering Clinician Indication Dosage Frequency Signature (SIG) Comments Components Source GLIPIZIDE 10 mg tablet 2020-10 0-26 00:00: 00 Yes [id number] TAKE ONE TABLET BY MOUTH DAILY [facility] GLIPIZIDE 10 mg tablet 2020-10 0-19 00:00: 00 Yes [id number] TAKE ONE TABLET BY MOUTH DAILY [facility] PIOGLITAZON E 30 mg tablet 07-15 00:00: 00 Yes TAKE ONE TABLET BY MOUTH DAILY [facility] TRIAMTERENE -HYDROCHLOR OTHIAZIDE 37.5-25 mg per capsule 20 00:00: 00 Yes [id number] TAKE ONE CAPSULE BY MOUTH EVERY MORNING [facility] BUMETANIDE 1 mg tablet 07-15 00:00: 00 Yes [id number] TAKE ONE TABLET BY MOUTH DAILY [facility] metFORMIN 500 mg tablet 06-25 00:00: 00 Yes [id number] TAKE ONE TABLET BY MOUTH TWICE A DAY WITH MEALS [facility] ATORVASTATI N 40 mg tablet 06-13 00:00: 00 Yes TAKE ONE TABLET BY MOUTH AT BEDTIME [facility] GLIPIZIDE 10 mg tablet 06-10 00:00: 00 08-13 00:00 :00 No [id number] TAKE ONE TABLET BY MOUTH DAILY [facility] BUMETANIDE 1 mg tablet 05-21 00:00: 00 Yes [id number] TAKE ONE TABLET BY MOUTH DAILY [facility] TRIAMTERENE -HYDROCHLOR OTHIAZIDE 37.5-25 mg per capsule 05-21 00:00: 00 Yes [id number] TAKE ONE CAPSULE BY MOUTH EVERY MORNING [facility] KCL 10 mEq tablet 05-15 00:00: 00 Yes [id number] TAKE ONE TABLET BY MOUTH DAILY [facility] metFORMIN 500 mg tablet 04-15 00:00: 00 06-25 00:00 :00 No [id number] TAKE ONE TABLET BY MOUTH TWICE A DAY WITH MEALS [facility] PIOGLITAZON E 30 mg tablet 16 00:00: 00 Yes TAKE ONE TABLET BY MOUTH DAILY [facility] exenatide microsphere s (BYDUREON) 2 mg/0.65 mL injection 4- 00:00: 00 Yes [id number] 2mg inject 0.65 mL under the skin weekly. [facility] traMADoL 50 mg tablet 01-11 00:00: 00 Yes [id number] 50mg Take 1 tablet by mouth every 6 (six) hours as needed for Pain (scale 4-6). Indication s: acute pain [facility] exenatide microsphere s 2 mg injection 01-11 00:00: 00 Yes [id number] 2mg inject 2 mg under the skin every 7 (seven) days. [facility] traMADol 50 mg tablet 12-21 00:00: 00 Yes [id number] 50mg Take 1 tablet by mouth every 6 (six) hours as needed (pain). [facility] exenatide microsphere s 2 mg injection 12-21 00:00: 00 Yes [id number] 2mg inject 2 mg under the skin every 7 (seven) days. [facility] metFORMIN 500 mg [...] by mouth daily. [facility] amoxicillin -clavulanat e (AUGMENTIN) 875-125 mg per tablet 11-25 00:00: 00 12-21 00:00 :00 No [id number] 1{tbl} Take 1 tablet by mouth 2 (two) times daily. [facility] sulfamethox azole-trime thoprim 800-160 mg per tablet 11-25 00:00: 00 12-21 00:00 :00 No [id number] 1{tbl} Take 1 tablet by mouth 2 (two) times daily. [facility] traMADol 50 mg tablet 11-25 00:00: 00 12-21 00:00 :00 No [id number] 50mg Take 1 tablet by mouth every 6 (six) hours as needed (pain). [facility] Furosemide 40 MG Furosemide 40 MG No 1{table t} QD Furosemide 40 MG metFORMIN HCl 1000 MG metFORMIN HCl 1000 MG No 1{table t_with_ a_meal} QD metFORMIN HCl 1000 MG Cholecalcif nydia 25 MCG (1000 UT) Cholecalcif nydia 25 MCG (1000 UT) No 1{capsu le} QD Cholecalci ferol 25 MCG (1000 UT) traMADol HCl 50 MG traMADol HCl 50 MG No 1{table t_as_ne eded} QD traMADol HCl 50 MG Tamsulosin HCl 0.4 MG Tamsulosin HCl 0.4 MG No 1{capsu le} QD Tamsulosin HCl 0.4 MG Gabapentin 300 MG Gabapentin 300 MG No 1{capsu le} QD Gabapentin 300 MG No known medications No Un senthil [facility] Vital Signs Vital Name Observation Time Observation Value Comments S ource height 2024-02-17 13:30:00 72 [in_i] Commo n [facility] weight 2024-02-17 13:30:00 340.0 [lb_av] Co mmon [facility] temperature 2024-02-17 13:30:00 98.5 [degF] Com mon [facility] bmi 2024-02-17 13:30:00 46.11 kg/m2 Comm on [facility] oximetry 2024-02-17 13:30:00 95 % Commo n [facility] respiratory rate 2024-02-17 13:30:00 16 /min Common [facility] blood pressure systolic 2024-02-17 13:30:00 173 mm[Hg] [facility] blood pressure diastolic 2024-02-17 13:30:00 83 mm[Hg] [facility] Systolic blood pressure 2019-12-21 17:49:00 110 mm[Hg] [facility] Diastolic blood pressure 2019-12-21 17:49:00 41 mm[Hg] [facility] Heart rate 2019-12-21 17:49:00 79 /min [facility] Body temperature 2019-12-21 17:49:00 36.78 Yesenia [facility] Respiratory rate 2019-12-21 17:49:00 18 /min [facility] Procedures Procedure Date / Time Performed Performing Clinician Source REFERRAL- REQUEST/RESPONSE 2023-04-20 05:01:00 Doctor Unassigned, Sikes [facility] ASSIGNMENT OF BENEFITS 2022-03-26 12:52:53 Docto r Unassigned, Sikes [facility] REFERRAL- REQUEST/RESPONSE 2022-03-12 05:01:00 Doctor Unassigned, Sikes [facility] PATIENT QUESTIONNAIRE 2019-11-22 06:01:00 Doctor Unassigned, Sikes [facility] REFERRAL- REQUEST/RESPONSE 2019-11-11 06:01:00 Doctor Unassigned, Sikes [facility] Encounters Start Date/Time End Date/Time Encounter Type Admission Type Attending Clinicians Care Facility Care Department Encounter ID Source 2024-02-17 12:35:00 Outpatient [facility] [id number] [facility] 2021-08-23 14:59:58 Emergency [facility] [id number] [facility] 2019-11-28 08:29:26 Outpatient [facility] [id number] [facility] 2024-04-08 11:00:00 2024-04-08 11:00:00 Outpatient ADA AGUIRRE HOWARD [facility] [id number] [facility] 2024-03-07 00:00:00 2024-03-07 00:00:00 ([place]) Nurse Visit [facility] ST[facility] [id number] [facility] 2024-02-29 00:00:00 2024-02-29 00:00:00 (TEL) STLMLC STLMLC [id number] [facility] 2024-02-23 00:00:00 2024-02-23 00:00:00 ([place]) [facility] [id number] [facility] 2024-02-17 00:00:00 2024-02-17 00:00:00 OFFICE VISIT ESTAB PT LEVEL 3 STLMLC STLMLC [id number] [facility] 2024-01-13 18:01:00 2024-01-30 11:57:00 Inpatient 3 Tania Zimmerman E[facility] SCN [id number] [facility] 2023-11-07 22:28:00 2023-11-23 15:20:00 Inpatient 3 [facility] May escoto ENCPL EULALIO [id number] [facility] 2023-06-05 08:45:00 2023-06-05 08:45:00 Outpatient JULISA AREVALO [facility] [id number] [facility] 2023-04-20 00:00:00 2023-04-20 00:00:00 Orders Only Doctor Unassigned, Sikes [facility] 1..840.114 350.1.13.10 4.2.7.2.686 [id number] [id number] [facility] 2023-04-14 00:00:00 2023-04-14 00:00:00 Telephone Veronica Truong [facility] 1..840.114 350.1.13.10 4.2.7.2.686 [id number] [facility] 2022-08-21 08:00:00 2022-08-21 09:19:07 Outpatient JULISA AREVALO [facility] [id number] [facility] 2022-08-21 08:00:00 2022-08-21 09:19:07 Ancillary Visit Veronica Truong Craig L [facility] 1..840.114 350.1.13.10 4.2.7.2.686 [id number] [facility] 2022-08-14 08:00:00 2022-08-14 09:36:02 Ancillary Visit Veronica Truong [facility] 1.2.840.114 350.1.13.10 4.2.7.2.686 [id number] 179 [id number] [facility] 2022-08-07 08:00:00 2022-08-07 09:00:00 Ancillary Visit Alexi [facility]isa [facility] 1.2.840.114 350.1.13.10 4.2.7.2.686 [id number] 179 [id number] [facility] 2022-07-17 08:00:00 2022-07-17 10:33:07 Ancillary Visit Alexi Julisa Gomez [facility] NAL BUILDING 1.2.840.114 350.1.13.10 4.2.7.2.686 [id number] 179 [id number] [facility] 2022-07-11 08:00:00 2022-07-11 09:09:53 Ancillary Visit Veronica Truong Craig L [facility] NAL BUILDING 1.2.840.114 350.1.13.10 4.2.7.2.686 [id number] [facility] 2022-07-09 08:00:00 2022-07-09 09:22:42 Ancillary Visit Veronica Truong [facility] 1.2.840.114 350.1.13.10 4.2.7.2.686 [id number] 179 [id number] [facility] 2022-07-03 08:00:00 2022-07-03 09:28:51 Ancillary Visit Veronica Truong Craig L [facility] NAL BUILDING 1.2.840.114 350.1.13.10 4.2.7.2.686 [id number] [facility] 2022-07-01 08:00:00 2022-07-01 09:42:36 Outpatient R JULISA DURAN [facility] [id number] [facility] 2022-07-01 08:00:00 2022-07-01 09:42:36 Ancillary Visit Veronica Truong Craig L [facility] 1.2.840.114 350.1.13.10 4.2.7.2.686 [id number] [facility] 2022-06-25 08:00:00 2022-06-25 10:05:28 Ancillary Visit Veronica Truong Craig L [facility] 1.2.840.114 350.1.13.10 4.2.7.2.686 [id number] 179 [id number] [facility] 2022-06-20 08:00:00 2022-06-20 09:40:30 Ancillary Visit Veronica Truong Craig L [facility] 1.2.840.114 350.1.13.10 4.2.7.2.686 [id number] 179 [id number] [facility] 2022-06-18 08:00:00 2022-06-18 09:36:15 Ancillary Visit Veronica Truong Craig L [facility] 1.2.840.114 350.1.13.10 4.2.7.2.686 [id number] 179 [id number] [facility] 2022-06-13 08:00:00 2022-06-13 08:45:00 Ancillary Visit Veronica Truong Craig L [facility] 1.2.840.114 350.1.13.10 4.2.7.2.686 [id number] 179 [id number] [facility] 2022-06-10 08:45:00 2022-06-10 09:30:00 Ancillary Visit Veronica Truong Craig L [facility] 1.2.840.114 350.1.13.10 4.2.7.2.686 [id number] [facility] 2022-06-06 08:00:00 2022-06-06 10:23:06 Ancillary Visit Veronica Truong Craig L [facility] 1.2.840.114 350.1.13.10 4.2.7.2.686 [id number] 179 [id number] [facility] 2022-06-04 08:00:00 2022-06-04 09:29:06 Ancillary Visit Veronica Truong Craig L [facility] 1.2.840.114 350.1.13.10 4.2.7.2.686 [id number] [facility] 2022-05-30 08:00:00 2022-05-30 10:18:46 Ancillary Visit Veroncia Truong Craig L [facility] 1.2.840.114 350.1.13.10 4.2.7.2.686 [id number] 179 [id number] [facility] 2022-05-28 08:00:00 2022-05-28 10:30:25 Outpatient R JULISA DURAN [facility] [id number] [facility] 2022-05-28 08:00:00 2022-05-28 08:45:00 Ancillary Visit Veronica Truong Craig L [facility] 1.2.840.114 350.1.13.10 4.2.7.2.686 [id number] [facility] 2022-05-23 08:00:00 2022-05-23 09:06:40 Ancillary Visit Alexi Julisa Gomez [facility] 1.2.840.114 350.1.13.10 4.2.7.2.686 [id number] [facility] 2022-05-09 09:30:00 2022-05-09 10:33:51 Ancillary Visit Veronica Truong Craig L [facility] 1.2.840.114 350.1.13.10 4.2.7.2.686 [id number] [facility] 2022-05-07 10:15:00 2022-05-07 11:02:32 Ancillary Visit Veronica Truong Craig L [facility] 1.2.840.114 350.1.13.10 4.2.7.2.686 [id number] [facility] 2022-05-05 00:00:00 2022-05-05 00:00:00 Logan Bergman [facility] 1.2.840.114 350.1.13.10 4.2.7.2.686 [id number] [facility] 2022-05-05 00:00:00 2022-05-05 00:00:00 Logan Bergman [facility] 1.2.840.114 350.1.13.10 4.2.7.2.686 [id number] [facility] 2022-04-30 08:45:00 2022-04-30 08:45:00 Outpatient R JULISA DURAN [facility] [id number] [facility] 2022-04-30 00:00:00 2022-04-30 00:00:00 Case Management Veronica Truong [facility] 1.2.840.114 350.1.13.10 4.2.7.2.686 [id number] [facility] 2022-04-24 14:30:00 2022-04-24 15:42:45 Ancillary Visit Veronica Truong Craig L [facility] 1.2.840.114 350.1.13.10 4.2.7.2.686 [id number] [facility] 2022-04-17 08:00:00 2022-04-17 09:00:00 Ancillary Visit Veronica Truong Craig L [facility] 1.2.840.114 350.1.13.10 4.2.7.2.686 [id number] [facility] 2022-04-11 08:00:00 2022-04-11 09:00:00 Ancillary Visit Veronica Truong Craig L [facility] 1.2.840.114 350.1.13.10 4.2.7.2.686 [id number] [facility] 2022-04-09 08:00:00 2022-04-09 09:00:00 Ancillary Visit Veronica Truong Craig L [facility] 1.2.840.114 350.1.13.10 4.2.7.2.686 [id number] [facility] 2022-04-04 08:00:00 2022-04-04 09:00:00 Ancillary Visit Veronica Truong Craig L [facility] 1.2.840.114 350.1.13.10 4.2.7.2.686 [id number] [facility] 2022-04-01 08:00:00 2022-04-01 09:00:00 Ancillary Visit Veronica Truong Julisa Guzmán [facility] 1.2840.114 350.1.13.10 4.2.7.2.686 [id number] [facility] 2022-03-26 08:00:00 2022-03-26 10:37:03 Outpatient R JULISA DURAN [facility] [id number] [facility] 2022-03-26 08:00:00 2022-03-26 10:37:03 Ancillary Visit Niyah Mckeon Craig L [facility] 1.2840.114 350.1.13.10 4.2.7.2.686 [id number] [facility] 2022-03-26 00:00:00 2022-03-26 00:00:00 Orders Only Doctor Unassigned, Sikes [facility] 1.2.840.114 350.1.13.10 4.2.7.2.686 [id number] [facility] 2022-03-12 00:00:00 2022-03-12 00:00:00 Orders Only Doctor Unassigned, Sikes [facility] 1.2.840.114 350.1.13.10 4.2.7.2.686 [id number] [facility] 2022-02-10 00:00:00 2022-02-10 00:00:00 Logan Bergman [facility] 1.2840.114 350.1.13.10 4.2.7.2.686 [id number] [facility] 2021-11-29 00:00:00 2021-11-29 00:00:00 Logan Bergman [facility] 1.2840.114 350.1.13.10 4.2.7.2.686 [id number] 044 [id number] [facility] 2021-09-12 00:00:00 2021-09-12 00:00:00 Vita GuidryjudahLogan dean [facility] PROFESSIO NAL BUILDING 1.2.840.114 350.1.13.10 4.2.7.2.686 [id number] [facility] 2021-08-19 00:00:00 2021-08-19 00:00:00 Vita Lance [facility] Professio nal Building 1.2.840.114 350.1.13.10 4.2.7.2.686 [id number] [facility] 2021-08-13 00:00:00 2021-08-13 00:00:00 [facility] 1.2.840.114 350.1.13.10 4.2.7.2.686 [id number] [facility] 2021-07-13 00:00:00 2021-07-13 00:00:00 [facility] 1.2.840.114 350.1.13.10 4.2.7.2.686 [id number] [facility] 2021-06-24 00:00:00 2021-06-24 00:00:00 [facility] 1.2.840.114 350.1.13.10 4.2.7.2.686 [id number] [facility] 2020-09-05 10:15:00 2020-09-05 10:15:00 Outpatient LOGAN HESTER [facility] [id number] [facility] 2020-06-25 11:40:00 2020-06-25 11:40:00 Outpatient Arleth KATE ALANIZ [facility] [id number] [facility] 2020-06-06 15:45:00 2020-06-06 15:45:00 Outpatient LOGAN HESTER [facility] [id number] [facility] 2020-05-09 16:15:00 2020-05-09 16:15:00 Outpatient LOGAN HESTER [facility] [id number] [facility] 2020-03-20 09:15:00 2020-03-20 09:15:00 Outpatient LOGAN HESTER [facility] [id number] [facility] 2020-01-25 11:00:00 2020-01-25 11:00:00 Outpatient JULISA AREVALO [facility] [id number] [facility] 2019-12-29 09:20:00 2019-12-29 09:20:00 Outpatient JULISA AREVALO [facility] [id number] [facility] 2019-12-21 11:42:25 2019-12-21 11:57:25 Office Visit Logan Lance [facility] 1..840.114 350.1.13.10 4.2.7.2.686 [id number] [facility] 2019-12-21 11:30:00 2019-12-21 11:30:00 Outpatient LOGAN HESTER [facility] [id number] [facility] 2019-12-20 09:00:00 2019-12-20 09:00:00 Outpatient R [facility] [id number] [facility] 2019-12-16 10:07:00 2019-12-16 11:07:00 Ancillary [facility] 1.2.840.114 350.1.13.10 4.2.7.2.686 [id number] [facility] 2019-12-14 09:52:14 2019-12-14 10:52:14 Ancillary Visit Alexi [facility]isa [facility] 1.2.840.114 350.1.13.10 4.2.7.2.686 [id number] [facility] 2019-12-09 08:52:58 2019-12-09 10:16:26 Ancillary Visit Veronica Truong [facility] 1.2.840.114 350.1.13.10 4.2.7.2.686 [id number] [facility] 2019-12-07 08:58:57 2019-12-07 09:58:57 Ancillary Visit Veronica Truong [facility] 1.2.840.114 350.1.13.10 4.2.7.2.686 [id number] [facility] 2019-12-02 08:47:35 2019-12-02 09:47:35 Ancillary Visit Veronica Truong [facility] 1.2.840.114 350.1.13.10 4.2.7.2.686 [id number] [facility] 2019-11-18 09:11:00 2019-11-30 12:53:31 Ancillary Visit Nicolasa Castillo [facility] 1.2.840.114 350.1.13.10 4.2.7.2.686 [id number] [facility] 2019-11-30 08:42:50 2019-11-30 09:42:50 Ancillary [facility] 1.2.840.114 350.1.13.10 4.2.7.2.686 [id number] [facility] 2019-11-24 08:48:05 2019-11-24 15:06:52 Ancillary Visit Veronica Truong Craig L [facility] 1.2.840.114 350.1.13.10 4.2.7.2.686 [id number] [facility] 2019-11-22 08:37:05 2019-11-22 11:36:52 Ancillary Visit Veronica Truong Craig L [facility] 1.2.840.114 350.1.13.10 4.2.7.2.686 [id number] [facility] 2019-11-22 00:00:00 2019-11-22 00:00:00 Orders Only Doctor Unassigned, Sikes [facility] 1.2.840.114 350.1.13.10 4.2.7.2.686 [id number] [id number] [facility] 2019-11-11 00:00:00 2019-11-11 00:00:00 Orders Only Doctor Unassigned, Sikes [facility] 1.2.840.114 350.1.13.10 4.2.7.2.686 [id number] [facility] 2019-10-30 03:07:00 2019-10-30 15:15:00 Inpatient E [facility] [id number] [facility] Results Test Description Test Time Test Comments Results Result Co mments Source [facility]2024-01-29 11:38:00* Test Item Value Reference Range Interpretation Comme nts WHITE BLOOD CELL COUNT (test code = 52405771) 5.8 Thousand/uL 3.8-10.8 N RED BLOOD CELL COUNT (test code = 16208708) 4.66 Million/uL 4.20-5.80 N HEMOGLOBIN (test code = 98818570) 11.5 g/dL 13.2-17.1 L HEMATOCRIT (test code = 06200870) 38.1 % 38.5-50.0 L MCV (test code = 54435682) 81.8 fL 80.0-100.0 N MCH (test code = 04952165) 24.7 pg 27.0-33.0 L MCHC (test code = 82449923) 30.2 g/dL 32.0-36.0 L RDW (test code = 42486874) 15.4 % 11.0-15.0 H PLATELET COUNT (test code = 91234003) 141 Thousand/uL 140-400 N MPV (test code = 13621523) fL 7.5-12.5 N Due to platelet or RBC variability in size or shapethe result cannot be reported accurately. ABSOLUTE NEUTROPHILS (test code = 71645929) 3695 cells/uL 7252-6900 N ABSOLUTE LYMPHOCYTES (test code = 60599999) 1630 cells/uL 850-3900 N ABSOLUTE MONOCYTES (test code = 14030954) 220 cells/uL 200-950 N ABSOLUTE EOSINOPHILS (test code = 98613771) 226 cells/uL 15-500 N ABSOLUTE BASOPHILS (test code = 05023372) 29 cells/uL 0-200 N NEUTROPHILS (test code = 21496316) 63.7 % N LYMPHOCYTES (test code = 86163828) 28.1 % N MONOCYTES (test code = 27055390) 3.8 % N EOSINOPHILS (test code = 60554709) 3.9 % N BASOPHILS (test code = 81609419) 0.5 % N [facility] [id number] 13:55:00* Test Item Value Reference Range Interpretation Comme nts GLUCOSE (test code = 86798319) 147 mg/dL 65-99 H Fasting referenc e interval For someone without known diabetes, a glucosevalue >125 mg/dL indicates that they may havediabetes and this should be confirmed with afollow-up test. UREA NITROGEN (BUN) (test code = 04184851) 12 mg/dL 7-25 N CREATININE (test code = 86558674) 0.46 mg/dL 0.70-1.30 L EGFR (test code = 84847670) 121 mL/min/1.73m2 >=60 N BUN/CREATININE RATIO (test code = 47237263) 26 (calc) 6-22 H SODIUM (test code = 87405949) 136 mmol/L 135-146 N POTASSIUM (test code = 93534934) 3.9 mmol/L 3.5-5.3 N CHLORIDE (test code = 89384755) 99 mmol/L 98-110 N CARBON DIOXIDE (test code = 24054486) 28 mmol/L 20-32 N CALCIUM (test code = 53499152) 8.9 mg/dL 8.6-10.3 N [facility]2024-01-19 13:55:00* Test Item Value Reference Range Interpretation Comme nts WHITE BLOOD CELL COUNT (test code = 60703971) 6.8 Thousand/uL 3.8-10.8 N RED BLOOD CELL COUNT (test code = 77951457) 4.73 Million/uL 4.20-5.80 N HEMOGLOBIN (test code = 77769659) 11.7 g/dL 13.2-17.1 L HEMATOCRIT (test code = 84231552) 38.0 % 38.5-50.0 L MCV (test code = 36677318) 80.3 fL 80.0-100.0 N MCH (test code = 04109008) 24.7 pg 27.0-33.0 L MCHC (test code = 77022558) 30.8 g/dL 32.0-36.0 L RDW (test code = 38461049) 15.3 % 11.0-15.0 H PLATELET COUNT (test code = 52916693) 141 Thousand/uL 140-400 N MPV (test code = 06590214) fL 7.5-12.5 N Due to platelet or RBC variability in size or shapethe result cannot be reported accurately. ABSOLUTE NEUTROPHILS (test code = 62729732) 5005 cells/uL 9526-5816 N ABSOLUTE LYMPHOCYTES (test code = 61049518) 1251 cells/uL 850-3900 N ABSOLUTE MONOCYTES (test code = 19944350) 272 cells/uL 200-950 N ABSOLUTE EOSINOPHILS (test code = 20262531) 252 cells/uL 15-500 N ABSOLUTE BASOPHILS (test code = 34766983) 20 cells/uL 0-200 N NEUTROPHILS (test code = 30852298) 73.6 % N LYMPHOCYTES (test code = 78998271) 18.4 % N MONOCYTES (test code = 23618536) 4.0 % N EOSINOPHILS (test code = 99805934) 3.7 % N BASOPHILS (test code = 00685455) 0.3 % N [facility] [id number] 18:17:00* Test Item Value Reference Range Interpretation Comments HEMOGLOBIN A1c (test code = 89780118) 7.0 % of total Hgb <5.7 H For someone without known diabetes, a hemoglobin U5mycwic of 6.5% or greater indicates that they [...] A1c for diagnosis of diabetes for children. This test was performed on the Senn[employer] viviane c503 platform.Effective 09/07/23, a change in test platforms from [employer] to the Kathy viviane c503 may have [id number] results compared to historical results.[facility] the Kathy platform relative to the [employer] had an average increase in HbA1c value of< or = 0.3%. This difference is within accepted variability established by the National GlycohemoglobinStandardization Program. Note that not all individualswill have had a shift in their results and directcomparisons between historical and current results fortesting conducted on different platforms is notrecommended. [facility] META [id number] 15:13:00* Test Item Value Reference Range Interpretation Comme nts GLUCOSE (test code = 53376239) 132 mg/dL 65-99 H Fasting referenc e interval For someone without known diabetes, a glucosevalue >125 mg/dL indicates that they may havediabetes and this should be confirmed with afollow-up test. UREA NITROGEN (BUN) (test code = 60923973) 9 mg/dL 7-25 N CREATININE (test code = 55404137) 0.47 mg/dL 0.70-1.30 L EGFR (test code = 20184052) 120 mL/min/1.73m2 >=60 N BUN/CREATININE RATIO (test code = 94113067) 19 (calc) 6-22 N SODIUM (test code = 35678288) 140 mmol/L 135-146 N POTASSIUM (test code = 52806437) 4.1 mmol/L 3.5-5.3 N CHLORIDE (test code = 96617261) 101 mmol/L 98-110 N CARBON DIOXIDE (test code = 39304117) 31 mmol/L 20-32 N CALCIUM (test code = 25775211) 9.2 mg/dL 8.6-10.3 N PROTEIN, TOTAL (test code = 12300674) 6.6 g/dL 6.1-8.1 N ALBUMIN (test code = 65785792) 3.5 g/dL 3.6-5.1 L GLOBULIN (test code = 82944512) 3.1 g/dL (calc) 1.9-3.7 N ALBUMIN/GLOBULIN RATIO (test code = 31925242) 1.1 (calc) 1.0-2.5 N BILIRUBIN, TOTAL (test code = 21044809) 0.8 mg/dL 0.2-1.2 N ALKALINE PHOSPHATASE (test code = 45383534) 107 U/L 35-144 N AST (test code = 18677449) 10 U/L 10-35 N ALT (test code = 45297820) 15 U/L 9-46 N [facility] (DIFF/PLT)2024-01-14 15:13:00* Test Item Value Reference Range Interpretation Comme nts WHITE BLOOD CELL COUNT (test code = 42434501) 6.9 Thousand/uL 3.8-10.8 N RED BLOOD CELL COUNT (test code = 01045132) 4.47 Million/uL 4.20-5.80 N HEMOGLOBIN (test code = 92707865) 10.9 g/dL 13.2-17.1 L HEMATOCRIT (test code = 76897704) 35.5 % 38.5-50.0 L MCV (test code = 66443335) 79.4 fL 80.0-100.0 L MCH (test code = 65155803) 24.4 pg 27.0-33.0 L MCHC (test code = 56190039) 30.7 g/dL 32.0-36.0 L RDW (test code = 63913945) 14.8 % 11.0-15.0 N PLATELET COUNT (test code = 79361425) 141 Thousand/uL 140-400 N MPV (test code = 76247167) 13.2 fL 7.5-12.5 H ABSOLUTE NEUTROPHILS (test code = 05582290) 4837 cells/uL 2523-2829 N ABSOLUTE LYMPHOCYTES (test code = 75144548) 1559 cells/uL 850-3900 N ABSOLUTE MONOCYTES (test cod e = 42244129) 290 cells/uL 200-950 N ABSOLUTE EOSINOPHILS (test code = 30336076) 193 cells/uL 15-500 N ABSOLUTE BASOPHILS (test cod e = 29687251) 21 cells/uL 0-200 N NEUTROPHILS (test code = 86112986) 70.1 % N LYMPHOCYTES (test code = 46925995) 22.6 % N MONOCYTES (test code = 09737559) 4.2 % N EOSINOPHILS (test code = 91621274) 2.8 % N BASOPHILS (test code = 39597894) 0.3 % N [facility] TIME WITH [id number] 11:00:00* Test Item Value Reference Range Interpretation Comme nts INR (test code = 26081837) 1.1 N Reference Range 0.9-1.1Moderate-intensity Warfarin Therapy 2.0-3.0Higher-intensity Warfarin Therapy 3.0-4.0 PT (test code = 52835442) 11.9 sec 9.0-11.5 H For additional information, please refer [email or web address] (This link is being provided for informational/educational purposes only.) [facility] HOSPITALBASIC MET [id number] 14:10:00* Test Item Value Reference Range Interpretation Comme nts GLUCOSE (test code = 22228939) 120 mg/dL 65-99 H Fasting referenc e interval For someone without known diabetes, a glucose valuebetween 100 and 125 mg/dL is consistent withprediabetes and should be confirmed with afollow-up test. UREA NITROGEN (BUN) (test code = 48764266) 24 mg/dL 7-25 N CREATININE (test code = 44700351) 0.73 mg/dL 0.70-1.30 N EGFR (test code = 87637693) 105 mL/min/1.73m2 >=60 N BUN/CREATININE RATIO (test code = 63052875) SEE NOTE: (calc) 6-22 N Not Reported: BUN an d Creatinine are within reference range. SODIUM (test code = 62687862) 138 mmol/L 135-146 N POTASSIUM (test code = 39081132) 4.3 mmol/L 3.5-5.3 N CHLORIDE (test code = 17091660) 101 mmol/L 98-110 N CARBON DIOXIDE (test code = 24222738) 27 mmol/L 20-32 N CALCIUM (test code = 40647261) 8.7 mg/dL 8.6-10.3 N [facility] (DIFF/PLT)2023-11-19 14:10:00* Test Item Value Reference Range Interpretation Comme nts WHITE BLOOD CELL COUNT (test code = 05992067) 7.3 Thousand/uL 3.8-10.8 N RED BLOOD CELL COUNT (test code = 27657280) 4.24 Million/uL 4.20-5.80 N HEMOGLOBIN (test code = 94540562) 10.3 g/dL 13.2-17.1 L HEMATOCRIT (test code = 82686652) 34.0 % 38.5-50.0 L MCV (test code = 74597023) 80.2 fL 80.0-100.0 N MCH (test code = 27174737) 24.3 pg 27.0-33.0 L MCHC (test code = 89468001) 30.3 g/dL 32.0-36.0 L RDW (test code = 11812065) 14.5 % 11.0-15.0 N PLATELET COUNT (test code = 34027965) 166 Thousand/uL 140-400 N MPV (test code = 82967444) fL 7.5-12.5 N Due to platelet or RBC variability in size or shapethe result cannot be reported accurately. ABSOLUTE NEUTROPHILS (test code = 92305772) 5015 cells/uL 2564-0392 N ABSOLUTE LYMPHOCYTES (test code = 07555731) 1657 cells/uL 850-3900 N ABSOLUTE MONOCYTES (test code = 34664454) 321 cells/uL 200-950 N ABSOLUTE EOSINOPHILS (test code = 31360708) 277 cells/uL 15-500 N ABSOLUTE BASOPHILS (test code = 54225419) 29 cells/uL 0-200 N NEUTROPHILS (test code = 08210865) 68.7 % N LYMPHOCYTES (test code = 98181936) 22.7 % N MONOCYTES (test code = 39252936) 4.4 % N EOSINOPHILS (test code = 22211519) 3.8 % N BASOPHILS (test code = 86624377) 0.4 % N [facility] [id number] 13:21:00* Test Item Value Reference Range Interpretation Comme nts GLUCOSE (test code = 18840689) 77 mg/dL 65-99 N Fasting referenc e interval UREA NITROGEN (BUN) (test code = 29150816) 15 mg/dL 7-25 N CREATININE (test code = 76881723) 0.79 mg/dL 0.70-1.30 N EGFR (test code = 11192036) 103 mL/min/1.73m2 >=60 N BUN/CREATININE RATIO (test code = 88104726) SEE NOTE: (calc) 6-22 N Not Reported: BUN and Creatinine are within reference range. SODIUM (test code = 55982333) 138 mmol/L 135-146 N POTASSIUM (test code = 90922070) 4.2 mmol/L 3.5-5.3 N CHLORIDE (test code = 13354205) 101 mmol/L 98-110 N CARBON DIOXIDE (test code = 96494238) 28 mmol/L 20-32 N CALCIUM (test code = 05884109) 8.9 mg/dL 8.6-10.3 N [facility] (DIFF/PLT)2023-11-16 13:21:00* Test Item Value Reference Range Interpretation Comme nts WHITE BLOOD CELL COUNT (test code = 62571871) 7.1 Thousand/uL 3.8-10.8 N RED BLOOD CELL COUNT (test code = 78853876) 4.30 Million/uL 4.20-5.80 N HEMOGLOBIN (test code = 99552289) 10.4 g/dL 13.2-17.1 L HEMATOCRIT (test code = 18657189) 34.6 % 38.5-50.0 L MCV (test code = 28548175) 80.5 fL 80.0-100.0 N MCH (test code = 04447447) 24.2 pg 27.0-33.0 L MCHC (test code = 38829856) 30.1 g/dL 32.0-36.0 L RDW (test code = 89764594) 14.5 % 11.0-15.0 N PLATELET COUNT (test code = 02487028) 154 Thousand/uL 140-400 N MPV (test code = 89822990) fL 7.5-12.5 N Due to platelet or RBC variability in size or shapethe result cannot be reported accurately. ABSOLUTE NEUTROPHILS (test code = 23735883) 4665 cells/uL 2068-5779 N ABSOLUTE LYMPHOCYTES (test code = 39757570) 1818 cells/uL 850-3900 N ABSOLUTE MONOCYTES (test code = 70988677) 320 cells/uL 200-950 N ABSOLUTE EOSINOPHILS (test code = 41904568) 270 cells/uL 15-500 N ABSOLUTE BASOPHILS (test code = 22847825) 28 cells/uL 0-200 N NEUTROPHILS (test code = 32416588) 65.7 % N LYMPHOCYTES (test code = 90965868) 25.6 % N MONOCYTES (test code = 61251907) 4.5 % N EOSINOPHILS (test code = 04357003) 3.8 % N BASOPHILS (test code = 84096908) 0.4 % N [facility] ([facility]2023-11-12 12:29:00* Test Item Value Reference Range Interpretation Comme nts WHITE BLOOD CELL COUNT (test code = 76492353) 6.5 Thousand/uL 3.8-10.8 N RED BLOOD CELL COUNT (test code = 90961638) 4.12 Million/uL 4.20-5.80 L HEMOGLOBIN (test code = 68743090) 10.0 g/dL 13.2-17.1 L HEMATOCRIT (test code = 80477712) 32.9 % 38.5-50.0 L MCV (test code = 74031840) 79.9 fL 80.0-100.0 L MCH (test code = 03776167) 24.3 pg 27.0-33.0 L MCHC (test code = 22920403) 30.4 g/dL 32.0-36.0 L RDW (test code = 52806475) 14.5 % 11.0-15.0 N PLATELET COUNT (test code = 82192497) 146 Thousand/uL 140-400 N MPV (test code = 76212149) fL 7.5-12.5 N Due to platelet or RBC variability in size or shapethe result cannot be reported accurately. ABSOLUTE NEUTROPHILS (test code = 68008881) 4368 cells/uL 1186-2020 N ABSOLUTE LYMPHOCYTES (test code = 54811813) 1599 cells/uL 850-3900 N ABSOLUTE MONOCYTES (test code = 74111988) 280 cells/uL 200-950 N ABSOLUTE EOSINOPHILS (test code = 78820339) 241 cells/uL 15-500 N ABSOLUTE BASOPHILS (test code = 78753236) 13 cells/uL 0-200 N NEUTROPHILS (test code = 33228040) 67.2 % N LYMPHOCYTES (test code = 08823542) 24.6 % N MONOCYTES (test code = 87568516) 4.3 % N EOSINOPHILS (test code = 91314499) 3.7 % N BASOPHILS (test code = 12367326) 0.2 % N [facility]ITAL[facility] MET [id number] 12:29:00* Test Item Value Reference Range Interpretation Comme nts GLUCOSE (test code = 66962115) 103 mg/dL 65-99 H Fasting referenc e interval For someone without known diabetes, a glucose valuebetween 100 and 125 mg/dL is consistent withprediabetes and should be confirmed with afollow-up test. UREA NITROGEN (BUN) (test code = 41642154) 17 mg/dL 7-25 N CREATININE (test code = 47362059) 0.93 mg/dL 0.70-1.30 N EGFR (test code = 38036549) 95 mL/min/1.73m2 >=60 N BUN/CREATININE RATIO (test code = 05211572) SEE NOTE: (calc) 6-22 N Not Reported: BUN an d Creatinine are within reference range. SODIUM (test code = 67423470) 139 mmol/L 135-146 N POTASSIUM (test code = 50654111) 4.4 mmol/L 3.5-5.3 N CHLORIDE (test code = 30994004) 104 mmol/L 98-110 N CARBON DIOXIDE (test code = 29877633) 27 mmol/L 20-32 N CALCIUM (test code = 73176311) 8.3 mg/dL 8.6-10.3 L [facility] HOSPITALTHYROID PANEL [id number] 21:25:00* Test Item Value Reference Range Interpretation Comme [facility] T3 UPTAKE (test code = 24710113) 34 % 22-35 N T4 (THYROXINE), TOTAL (test code = 81477480) 6.4 mcg/dL 4.9-10.5 N FREE T4 INDEX (T7) (test cod e = 24922563) 2.2 1.4-3.8 N TSH (test code = 61423140) 1.55 mIU/L 0.40-4.50 N [facility] [id number] 21:25:00* Test Item Value Reference Range Interpretation Comme nts GLUCOSE (test code = 27512685) 141 mg/dL 65-99 H Fasting referenc e interval For someone without known diabetes, a glucosevalue >125 mg/dL indicates that they may havediabetes and this should be confirmed with afollow-up test. UREA NITROGEN (BUN) (test code = 60760829) 18 mg/dL 7-25 N CREATININE (test code = 00619630) 0.66 mg/dL 0.70-1.30 L EGFR (test code = 25441233) 109 mL/min/1.73m2 >=60 N BUN/CREATININE RATIO (test code = 41657607) 27 (calc) 6-22 H SODIUM (test code = 53238376) 137 mmol/L 135-146 N POTASSIUM (test code = 84210950) 3.9 mmol/L 3.5-5.3 N CHLORIDE (test code = 74947488) 100 mmol/L 98-110 N CARBON DIOXIDE (test code = 63542703) 28 mmol/L 20-32 N CALCIUM (test code = 23947198) 8.6 mg/dL 8.6-10.3 N [facility] (DIFF/PLT)2023-11-10 21:25:00* Test Item Value Reference Range Interpretation Comme nts WHITE BLOOD CELL COUNT (test code = 30305874) 7.6 Thousand/uL 3.8-10.8 N RED BLOOD CELL COUNT (test code = 46819814) 4.35 Million/uL 4.20-5.80 N HEMOGLOBIN (test code = 26233580) 10.5 g/dL 13.2-17.1 L HEMATOCRIT (test code = 57813617) 34.7 % 38.5-50.0 L MCV (test code = 60736870) 79.8 fL 80.0-100.0 L MCH (test code = 23593412) 24.1 pg 27.0-33.0 L MCHC (test code = 38929068) 30.3 g/dL 32.0-36.0 L RDW (test code = 04638199) 14.4 % 11.0-15.0 N PLATELET COUNT (test code = 55627830) 159 Thousand/uL 140-400 N MPV (test code = 07956470) fL 7.5-12.5 N Due to platelet or RBC variability in size or shapethe result cannot be reported accurately. ABSOLUTE NEUTROPHILS (test code = 19108248) 5046 cells/uL 6036-0627 N ABSOLUTE LYMPHOCYTES (test code = 70955276) 2006 cells/uL 850-3900 N ABSOLUTE MONOCYTES (test code = 62451346) 319 cells/uL 200-950 N ABSOLUTE EOSINOPHILS (test code = 83281644) 198 cells/uL 15-500 N ABSOLUTE BASOPHILS (test code = 68057527) 30 cells/uL 0-200 N NEUTROPHILS (test code = 56664424) 66.4 % N LYMPHOCYTES (test code = 87173658) 26.4 % N MONOCYTES (test code = 47013249) 4.2 % N EOSINOPHILS (test code = 25682284) 2.6 % N BASOPHILS (test code = 14970696) 0.4 % N [facility] W/RFL [id number] 21:25:00* Test Item Value Reference Range Interpretation Comme nts COLOR (test code = 56225040) DARK YELLOW YELLOW N APPEARANCE (test code = 54275599) CLOUDY CLEAR A SPECIFIC GRAVITY (test code = 53558728) 1.021 1.001-1.035 N PH (test code = 07498269) 5.5 5.0-8.0 N GLUCOSE (test code = 22707408) NEGATIVE NEGATIVE N BILIRUBIN (test code = 65279160) NEGATIVE NEGATIVE N KETONES (test code = 33705189) TRACE NEGATIVE A OCCULT BLOOD (test code = 21711292) NEGATIVE NEGATIVE N PROTEIN (test code = 35447802) 1+ NEGATIVE A NITRITE (test code = 36245630) NEGATIVE NEGATIVE N LEUKOCYTE ESTERASE (test code = 44580742) 2+ NEGATIVE A WBC (test code = 10329666) > OR = 60 /HPF 0-5 A RBC (test code = 48435645) NONE SEEN /HPF 0-2 N SQUAMOUS EPITHELIAL CELLS (test code = 76615575) NONE SEEN /HPF <=5 N BACTERIA (test code = 12229566) MANY /HPF NONE SEEN A HYALINE CAST (test code = 68480239) NONE SEEN /LPF NONE SEEN N NOTE (test code = 99013300) This urine was analyzed for the presence of WBC, RBC, bacteria, casts, and other formed elements. Only those elements seen were reported. [facility], UR [id number] 21:25:00* Test Item Value Reference Range Interpretation Comme nts SOURCE: (test code = 73183330) URINE STATUS: (test code = 72008200) FINAL ISOLATE 1: (test code = 13383061) Enterobacter cloacae complex A [facility],[id number] 21:25:00* Test Item Value Reference Range Interpretation Comme nts ISOLATE (test code = 53407378) N Enterobacter [place] acae complex AMOXICILLIN/CLAVULANI C (test code = 54861302) 16 R CEFAZOLIN (test code = 95636088) >=64 R For uncomplicate d UTI caused by E. coli,K. pneumoniae or P. mirabilis: Cefazolin issusceptible if LISETTE <32 mcg/mL and predictssusceptible to the oral agents cefaclor, cefdinir,cefpodoxime, cefprozil, cefuroxime, cephalexinand loracarbef. CEFTAZIDIME (test code = 35613889) <=1 S CEFEPIME (test code = 28624798) <=1 S CEFTRIAXONE (test code = 45147109) <=1 S CIPROFLOXACIN (test code = 53378341) <=0.25 S LEVOFLOXACIN (test code = 22854640) <=0.12 S GENTAMICIN (test code = 25015740) <=1 S IMIPENEM (test code = 50874834) <=0.25 S NITROFURANTOIN (test code = 90988439) 64 I PIPERACILLIN/TAZOBACT AM (test code = 87816254) <=4 S TOBRAMYCIN (test code = 24116988) <=1 S TRIMETHOPRIM/SULFA (test code = 57292628) >=320 R Legend:S = Susce ptible I = IntermediateR = Resistant NS = Not susceptible* = Not tested NR = Not reportedNN = See antimicrobic comments [facility] HOSPITALCULTURE [id number] 21:25:00* Test Item Value Reference Range Interpretation Comme nts REFLEXIVE URINE CULTURE (test code = 51773765) CULTURE I NDICATED - RESULTS TO FOLLOW [facility] [id number] 10:09:00* Test Item Value Reference Range Interpretation Comme nts T3 UPTAKE (test code = 53029540) 34 % 22-35 N T4 (THYROXINE), TOTAL (test code = 94818500) 6.4 mcg/dL 4.9-10.5 N FREE T4 INDEX (T7) (test cod e = 62140635) 2.2 1.4-3.8 N TSH (test code = 35817464) 1.55 mIU/L 0.40-4.50 N [facility]ITALBAS[facility] MET [id number] 10:09:00* Test Item Value Reference Range Interpretation Comme nts GLUCOSE (test code = 05603512) 141 mg/dL 65-99 H Fasting referenc e interval For someone without known diabetes, a glucosevalue >125 mg/dL indicates that they may havediabetes and this should be confirmed with afollow-up test. UREA NITROGEN (BUN) (test code = 36950541) 18 mg/dL 7-25 N CREATININE (test code = 03899270) 0.66 mg/dL 0.70-1.30 L EGFR (test code = 05247988) 109 mL/min/1.73m2 >=60 N BUN/CREATININE RATIO (test code = 99862347) 27 (calc) 6-22 H SODIUM (test code = 10905453) 137 mmol/L 135-146 N POTASSIUM (test code = 23661207) 3.9 mmol/L 3.5-5.3 N CHLORIDE (test code = 59230654) 100 mmol/L 98-110 N CARBON DIOXIDE (test code = 16997491) 28 mmol/L 20-32 N CALCIUM (test code = 51086274) 8.6 mg/dL 8.6-10.3 N [facility] (DIFF/PLT)2023-11-10 10:09:00* Test Item Value Reference Range Interpretation Comme nts WHITE BLOOD CELL COUNT (test code = 14033760) 7.6 Thousand/uL 3.8-10.8 N RED BLOOD CELL COUNT (test code = 09151391) 4.35 Million/uL 4.20-5.80 N HEMOGLOBIN (test code = 27302975) 10.5 g/dL 13.2-17.1 L HEMATOCRIT (test code = 58311201) 34.7 % 38.5-50.0 L MCV (test code = 95816742) 79.8 fL 80.0-100.0 L MCH (test code = 79561395) 24.1 pg 27.0-33.0 L MCHC (test code = 88022655) 30.3 g/dL 32.0-36.0 L RDW (test code = 90004835) 14.4 % 11.0-15.0 N PLATELET COUNT (test code = 28074632) 159 Thousand/uL 140-400 N MPV (test code = 88374626) fL 7.5-12.5 N Due to platelet or RBC variability in size or shapethe result cannot be reported accurately. ABSOLUTE NEUTROPHILS (test code = 36348652) 5046 cells/uL 8442-0251 N ABSOLUTE LYMPHOCYTES (test code = 47353926) 2006 cells/uL 850-3900 N ABSOLUTE MONOCYTES (test code = 72340253) 319 cells/uL 200-950 N ABSOLUTE EOSINOPHILS (test code = 01174537) 198 cells/uL 15-500 N ABSOLUTE BASOPHILS (test code = 30121423) 30 cells/uL 0-200 N NEUTROPHILS (test code = 03762215) 66.4 % N LYMPHOCYTES (test code = 17588784) 26.4 % N MONOCYTES (test code = 82105425) 4.2 % N EOSINOPHILS (test code = 99570492) 2.6 % N BASOPHILS (test code = 02744222) 0.4 % N [facility] W/RFL [id number] 10:09:00* Test Item Value Reference Range Interpretation Comme nts COLOR (test code = 07476611) DARK YELLOW YELLOW N APPEARANCE (test code = 07669606) CLOUDY CLEAR A SPECIFIC GRAVITY (test code = 31839361) 1.021 1.001-1.035 N PH (test code = 41451507) 5.5 5.0-8.0 N GLUCOSE (test code = 32402641) NEGATIVE NEGATIVE N BILIRUBIN (test code = 53988408) NEGATIVE NEGATIVE N KETONES (test code = 55467175) TRACE NEGATIVE A OCCULT BLOOD (test code = 55995516) NEGATIVE NEGATIVE N PROTEIN (test code = 58663532) 1+ NEGATIVE A NITRITE (test code = 69926722) NEGATIVE NEGATIVE N LEUKOCYTE ESTERASE (test code = 11785944) 2+ NEGATIVE A WBC (test code = 95113466) > OR = 60 /HPF 0-5 A RBC (test code = 58429052) NONE SEEN /HPF 0-2 N SQUAMOUS EPITHELIAL CELLS (test code = 54142265) NONE SEEN /HPF <=5 N BACTERIA (test code = 48075138) MANY /HPF NONE SEEN A HYALINE CAST (test code = 65280098) NONE SEEN /LPF NONE SEEN N NOTE (test code = 79332457) This urine was analyzed for the presence of WBC, RBC, bacteria, casts, and other formed elements. Only those elements seen were reported. [facility], UR [id number] 10:09:00* Test Item Value Reference Range Interpretation Comme nts SOURCE: (test code = 86352625) URINE STATUS: (test code = 39091408) PRELIMINARY ISOLATE 1: (test code = 37488499) Gram negative bacilli isolated A [facility],[id number] 10:09:00* Test Item Value Reference Range Interpretation Comme nts ISOLATE (test code = 27054091) N Gram negative ba cilli isolated [facility] [id number] 10:09:00* Test Item Value Reference Range Interpretation Comme nts REFLEXIVE URINE CULTURE (test code = 79272363) CULTURE I NDICATED - RESULTS TO FOLLOW [facility] [id number] 21:49:00* Test Item Value Reference Range Interpretation Comme nts GLUCOSE (test code = 65452015) 117 mg/dL 65-99 H Fasting referenc e interval For someone without known diabetes, a glucose valuebetween 100 and 125 mg/dL is consistent withprediabetes and should be confirmed with afollow-up test. UREA NITROGEN (BUN) (test code = 49591559) 18 mg/dL 7-25 N CREATININE (test code = 21317631) 0.61 mg/dL 0.70-1.30 L EGFR (test code = 40521060) 111 mL/min/1.73m2 >=60 N BUN/CREATININE RATIO (test code = 65162477) 30 (calc) 6-22 H SODIUM (test code = 94455744) 137 mmol/L 135-146 N POTASSIUM (test code = 90005642) 4.4 mmol/L 3.5-5.3 N CHLORIDE (test code = 12354605) 102 mmol/L 98-110 N CARBON DIOXIDE (test code = 82808433) 26 mmol/L 20-32 N CALCIUM (test code = 59932939) 8.7 mg/dL 8.6-10.3 N PROTEIN, TOTAL (test code = 79991280) 6.5 g/dL 6.1-8.1 N ALBUMIN (test code = 37376336) 3.7 g/dL 3.6-5.1 N GLOBULIN (test code = 42907023) 2.8 g/dL (calc) 1.9-3.7 N ALBUMIN/GLOBULIN RATIO (test code = 58784519) 1.3 (calc) 1.0-2.5 N BILIRUBIN, TOTAL (test code = 86420562) 0.5 mg/dL 0.2-1.2 N ALKALINE PHOSPHATASE (test code = 55742223) 112 U/L 35-144 N AST (test code = 65730999) 17 U/L 10-35 N ALT (test code = 08048685) 17 U/L 9-46 N [facility] WITH [id number] 21:49:00* Test Item Value Reference Range Interpretation Comme nts INR (test code = 61415674) 1.1 N Reference Range 0.9-1.1Moderate-intensity Warfarin Therapy 2.0-3.0Higher-intensity Warfarin Therapy 3.0-4.0 PT (test code = 25970695) 11.4 sec 9.0-11.5 N For additional information, please refer tohttp://education.NSC/faq/QJX235 (This link is being provided for informational/educational purposes only.) [facility]FF[facility]PLT[facility]2023-11-09 21:49:00* Test Item Value Reference Range Interpretation Comme nts WHITE BLOOD CELL COUNT (test code = 56623228) 8.0 Thousand/uL 3.8-10.8 N RED BLOOD CELL COUNT (test code = 30761740) 4.25 Million/uL 4.20-5.80 N HEMOGLOBIN (test code = 17115620) 10.1 g/dL 13.2-17.1 L HEMATOCRIT (test code = 82692075) 33.9 % 38.5-50.0 L MCV (test code = 41372753) 79.8 fL 80.0-100.0 L MCH (test code = 89086519) 23.8 pg 27.0-33.0 L MCHC (test code = 27064738) 29.8 g/dL 32.0-36.0 L RDW (test code = 94507530) 14.5 % 11.0-15.0 N PLATELET COUNT (test code = 58645328) 149 Thousand/uL 140-400 N MPV (test code = 01839757) fL 7.5-12.5 N Due to platelet or RBC variability in size or shapethe result cannot be reported accurately. ABSOLUTE NEUTROPHILS (test code = 26764662) 5928 cells/uL 6163-9579 N ABSOLUTE LYMPHOCYTES (test code = 07538861) 1560 cells/uL 850-3900 N ABSOLUTE MONOCYTES (test code = 54940510) 336 cells/uL 200-950 N ABSOLUTE EOSINOPHILS (test code = 72672691) 160 cells/uL 15-500 N ABSOLUTE BASOPHILS (test code = 51416288) 16 cells/uL 0-200 N NEUTROPHILS (test code = 66275324) 74.1 % N LYMPHOCYTES (test code = 33813694) 19.5 % N MONOCYTES (test code = 83655655) 4.2 % N EOSINOPHILS (test code = 32314613) 2.0 % N BASOPHILS (test code = 64763323) 0.2 % N [facility] [id number] 20:16:00* Test Item Value Reference Range Interpretation Comme nts HEMOGLOBIN A1c (test code = 11352034) 10.3 % of total Hgb <5.7 H For someone without known diabetes, a hemoglobin K4utkyea of 6.5% or greater indicates that they [...] HbA1c results compared to historical results. [facility]
[2024-04-06] MEDS ORDERED: ONDANSETRON 4 MG/2 ML VIAL ONE ×2 (18:02→21:26)
[2024-04-06] MEDS ORDERED: MORPHINE 4 MG/ML SYR ONE ×2 (18:03→19:56)
[2024-04-06 18:40] LABS: Absolute Lymphocytes (CBC) 1.1 K/uL (0.7-4.9); Absolute Monocytes 0.8 K/uL (0.1-1.3); Absolute Neutrophil 12.2 K/uL (1.8-8.0); Basophils % 0.3 % (0-1.3); Eosinophils % 0.3 % (0-4.4); Hemoglobin 11.9 g/dL (13.6-17.9); Lymphocytes % 7.8 % (15.3-44.8); MCHC 30.6 g/dL (32.0-36.0); MCV 78.5 fL (80-100); Monocytes % 5.3 % (3.3-12.3); Neutrophils % 86.3 % (41.7-73.7); Nucleated Red Blood Cells % 0.2 % (0-0); Platelets 149 thou/uL (152-406); RBC Red Blood Cell Count 4.96 M/uL (4.33-5.43); Red Cell Distribution Width 16.2 % (12.1-15.2)
[2024-04-06 19:01] LABS: Anion Gap 9.9 mEq/L (5.0-15.0)
[2024-04-06 19:07] LABS: Potassium 3.9 mEq/L (3.5-5.1)
--- NOTE | 2024-04-06 19:14 | ER ---
Nurse's Notes [facility] Name: Tej Patel Age: 58 yrs Sex: Male : 1965 Arrival Date: 04/06/2024 Time: 17:38 Bed 8 Private MD: Diagnosis: Disorder of penis, unspecified;Urethral Trauma due to Prajapati Catheter removal Presentation: 04/06 17:42 Chief complaint: EMS states: home health came out today to change out catheter and when ko1 it was pulled out he began bleeding and it wont stop. Large amt of blood on scene. Coronavirus screen: At this time, the client does not indicate any symptoms associated with coronavirus-19. Ebola Screen: No symptoms or risks identified at this time. Initial Sepsis Screen: Does the patient meet any 2 criteria? No. Patient's initial sepsis screen is negative. Does the patient have a suspected source of infection? No. Patient's initial sepsis screen is negative. Risk Assessment: Do you want to hurt yourself or someone else? Patient reports no desire to harm self or others. Onset of symptoms was April 06, 2024. 17:42 Method Of Arrival: EMS: [facility] ko1 17:42 Acuity: DAVID 2 ko1 Triage Assessment: 17:46 General: Appears distressed, obese, Behavior is cooperative, appropriate for age. Pain: ko1 Complains of pain in head of penis and shaft of penis. EENT: No deficits noted. Neuro: No deficits noted. Cardiovascular: No deficits noted. Respiratory: No deficits noted. GI: No deficits noted. : pauline blood, Reports pain penis. Derm: No deficits noted. Musculoskeletal: No deficits noted. Historical: - Allergies: 17:46 No Known Allergies; ko1 - Home Meds: 17:46 Metformin Oral [Active]; ko1 - PMHx: 17:46 Congestive heart failure; diabetes mellitus; lymphedema; Sleep Apnea; ko1 - PSHx: 17:46 R AKA; ko1 - Immunization history:: Adult Immunizations unknown. - Infectious Disease History:: Denies. - Social history:: Smoking status: Patient denies any tobacco usage or history of. Screenin:20 [facility] ED Fall Risk Assessment (Adult) History of falling in the last 3 months, ko1 including since admission No falls in past 3 months (0 pts) Confusion or Disorientation No (0 pts) Intoxicated or Sedated No (0 pts) Impaired Gait Yes (1 pt) Mobility Assist Device Used Yes (1 pt) Altered Elimination Yes (1 pt) Score/Fall Risk Level 3 or more points = High Risk Oriented to surroundings, Maintained a safe environment, Educated pt \T\ family on fall prevention, incl call for assistance when getting out of bed, Assessed \T\ reinforced patient's understanding of fall precautions, Provided non-skid footwear, Hourly rounding (assess needs \T\ fall precautionary measures) done, Used ambulatory aids as needed (educated on \T\ assisted with), Used gait belt as appropriate Implemented a Fall Risk Plan of Care, Apply high fall risk patient identification: yellow non skid footwear/ fall signage, Offered frequent toileting (1:1 observation), Remained with patient while ambulating, Utilized family, sitter, or virtual front desk representative as indicated. Abuse screen: Denies threats or abuse. Denies injuries from another. Nutritional screening: No deficits noted. Tuberculosis screening: No symptoms or risk factors identified. Assessment: 18:10 General: Appears uncomfortable, Behavior is cooperative, anxious. Pain: Complains of ld1 pain in pelvis and shaft of penis and head of penis Pain does not radiate. Pain currently is 8 out of 10 on a pain scale. Quality of pain is described as throbbing, Pain began 2 hours ago. Is continuous. 18:10 Neuro: Level of Consciousness is awake, alert, obeys commands, Oriented to person, ld1 place, time, situation, Appropriate for age. Cardiovascular: Capillary refill < 3 seconds Patient's skin is warm and dry. Respiratory: Airway is patent Respiratory effort is even, unlabored. 20:03 Pain: Complains of pain in pelvis and shaft of penis and head of penis and groin. kd3 Neuro: Level of Consciousness is awake, alert, obeys commands, Oriented to person, place, time, situation, Appropriate for age. Respiratory: Airway is patent Trachea midline Respiratory effort is even, unlabored. 20:31 General: Appears uncomfortable, obese, unkempt, Behavior is cooperative. Pain: vc1 Complains of pain in shaft of penis Pain does not radiate. Pain currently is 5 out of 10 on a pain scale. Quality of pain is described as throbbing, Pain began 4 hours ago. Is continuous. Neuro: Level of Consciousness is awake, alert, obeys commands, Oriented to person, place, time, situation, Appropriate for age. Cardiovascular: Capillary refill < 3 seconds Patient's skin is warm and dry. Respiratory: Airway is patent Trachea midline Respiratory effort is even, unlabored, Respiratory pattern is regular, symmetrical, Breath sounds are clear. GI: Abdomen is round obese, Bowel sounds present X 4 quads. : Prajapati in place Urine is blood tinged. EENT: No deficits noted. No signs and/or symptoms were reported regarding the EENT system. Derm: Skin is intact, Skin is normal, Skin temperature is warm. Musculoskeletal: Amputation of Other: right AKA. 22:09 General: Pt continued to report severe pain. 0 output in the original Prajapati noted since kd3 1900. This RN attempted to irrigate the Prajapati with no output. Prajapati changed to a [address] Prajapati catheter with new drain bag. 600 cc dark red urine is now in the drain bag. Pt reports relief of pain. . 22:19 General: 700 CC of dark red urine drained from the urinary bag. . kd3 Vital Signs: 17:42 BP 154 / 101; Pulse 103; Resp 18; Temp 98; Pulse Ox 94% on 3 lpm NC; ko1 18:33 BP 152 / 87; Pulse 94; Resp 18; Pulse Ox 92% on 3 lpm NC; ld1 20:03 BP 144 / 104; Pulse 106; Resp 19; Pulse Ox 93% on R/A; kd3 22:11 BP 138 / 79; Pulse 96; Resp 19; Pulse Ox 93% on 4 lpm NC; kd3 ED Course: 17:39 Patient arrived in ED. ko1 17:42 Karly Gamboa, JUANJO is Primary Nurse. ko1 17:44 Ramon Damico DO is Attending Physician. ms3 17:46 Triage completed. ko1 17:46 Arm band placed on right wrist. Patient placed in an exam room, on a stretcher, on ko1 oxygen, on pulse oximetry, Patient notified of wait time. 18:15 Inserted saline lock: 22 gauge in left wrist, using aseptic technique. ko1 18:20 Patient has correct armband on for positive identification. Bed in low position. Call ko1 light in reach. Side rails up X2. Provided Education on: prajapati. Client placed on continuous cardiac and pulse oximetry monitoring. NIBP monitoring applied. media monitor on. Door closed. Noise minimized. Lights dimmed. Warm blanket given. Pillow given. Ice pack to injury. Cleaned of incontinence. Linen changed. 18:20 Initial lab(s) drawn, by ED staff, sent to lab. Coud inserted, using sterile ko1 technique, 14 Fr. Returned bloody urine. To gravity drainage. Patient tolerated well. 18:22 BMP Sent. ld1 18:22 CBC with Diff Sent. ld1 18:22 Inserted saline lock: 22 gauge in right forearm, using aseptic technique. Blood ko1 collected. 18:45 Prajapati cath removed intact, balloon deflated. ko1 18:50 Coud inserted, using sterile technique, 20 Fr. Returned bloody urine. To gravity ko1 drainage. Patient tolerated well. 18:55 Cleaned of incontinence. Linen changed. ko1 19:13 Bj Zamora MD is Hospitalizing Provider. ms3 21:23 Attending Physician role handed off by Ramon Damico DO sp4 21:23 Kp Lopez MD is Attending Physician. sp4 22:29 Ramon Damico DO is Attending Physician. ms3 Administered Medications: 18:21 Drug: morphine IVP or IV 4 mg IVP once over 4 mins Route: IVP; Infused Over: 4 mins; ld1 Site: left wrist; 22:20 Follow up: Response: No adverse reaction; Pain is decreased kd3 18:21 Drug: Ondansetron IVP 4 mg IVP once; over 2 minutes Route: IVP; Site: left wrist; ld1 22:20 Follow up: Response: No adverse reaction kd3 20:01 Drug: morphine IVP or IV 4 mg IVP once over 4 mins Route: IVP; Infused Over: 4 mins; kd3 Site: right antecubital; 22:20 Follow up: Response: No adverse reaction; Pain is decreased kd3 22:08 Drug: fentaNYL (PF) IVP 100 mcg IVP once Route: IVP; Site: left antecubital; kd3 22:20 Follow up: Response: No adverse reaction; Pain is decreased kd3 22:08 Drug: Ondansetron IVP 4 mg IVP once; over 2 minutes Route: IVP; Site: left antecubital; kd3 22:20 Follow up: Response: No adverse reaction kd3 Medication: 18:20 VIS not applicable for this client. ko1 Output: 22:19 Urine: 700ml (Prajapati); Total: 700ml. kd3 Outcome: 19:14 Decision to Hospitalize by Provider. ms3 22:34 Patient left the ED. kd3 Signatures: Ramon Damico, DO HERNANDEZ ms3 Becky Damico, RN RN ld1 Lisa Cruz RN RN kd3 Hilaria Ellis, RN RN vc1 Karly Gamboa RN RN ko1 Kp Lopez MD MD sp4 Corrections: (The following items were deleted from the chart) 19:14 18:20 Prajapati cath inserted, using sterile technique, 14 Fr., by me, balloon inflated, to ko1 gravity drainage, returned bloody urine. Patient tolerated well. ko1 19:16 18:20 Prajapati cath inserted, using sterile technique, 14 Fr., by me, balloon inflated, to ko1 gravity drainage, returned bloody urine. Patient tolerated well. ko1 19:16 18:22 Prajapati cath inserted, using sterile technique, 20 Fr., by me, balloon inflated, to ko1 gravity drainage, Patient tolerated well. ko1 22:20 22:09 General: Pt continued to report severe pain. 0 output in the original Prajapati noted kd3 since 1900. This RN attempted to irrigate the Prajapati with no output. Prajapati changed to a [address] Prajapati catheter with new drain bag. 800 cc dark red urine is now in the drain bag. Pt reports relief of pain. . kd3
--- NOTE | 2024-04-06 19:14 | EDPHYS ---
Physician Documentation [facility] Name: Tej Patel Age: 58 yrs Sex: Male : 1965 Arrival Date: 04/06/2024 Time: 17:38 Bed 8 Private MD: ED Physician Ramon Damico HPI: 04/06 19:20 This 58 yrs old Male presents to ER via EMS with complaints of Penile Bleeding.ms3 19:20 58-year-old male with past medical history of congestive heart failure, diabetes, ms3 lymphedema, sleep apnea presents to the emergency department via [facility] for penile bleeding. Patient states a home health nurse removed his catheter and replaced it yesterday and it began bleeding. A second RN return to his home today to replace the Mendoza catheter. Patient notes that this was the nurses first time removing a Mendoza catheter and she had not done this prior. He states after removal of the Mendoza catheter his penis began profusely bleeding prior to arrival. Historical: - Allergies: 17:46 No Known Allergies; ko1 - Home Meds: 17:46 Metformin Oral [Active]; ko1 - PMHx: 17:46 Congestive heart failure; diabetes mellitus; lymphedema; Sleep Apnea; ko1 - PSHx: 17:46 R AKA; ko1 - Immunization history:: Adult Immunizations unknown. - Infectious Disease History:: Denies. - Social history:: Smoking status: Patient denies any tobacco usage or history of. ROS: 19:24 Constitutional: Negative for fever, and chills. Cardiovascular: Negative for chest ms3 pain, and palpitations. Respiratory: Negative for shortness of breath, cough, wheezing, and pleuritic chest pain, Abdomen/GI: Negative for abdominal pain, nausea, vomiting, diarrhea, and constipation, 19:24 : Positive for Penile bleeding, Exam: 19:24 Constitutional: This is a well developed, well nourished patient who is awake, alert, ms3 and in no acute distress. Head/Face: Normocephalic, atraumatic. Cardiovascular: Regular rate and rhythm with a normal S1 and S2. No gallops, murmurs, or rubs. Normal PMI, no JVD. No pulse deficits. Respiratory: Lungs have equal breath sounds bilaterally, clear to auscultation and percussion. No rales, rhonchi or wheezes noted. No increased work of breathing, no retractions or nasal flaring. Abdomen/GI: Soft, non-tender, with normal bowel sounds. No distension or tympany. No guarding or rebound. No evidence of tenderness throughout. 19:24 : Male external genitalia: Bleeding coming from urethral meatus, Vital Signs: 17:42 BP 154 / 101; Pulse 103; Resp 18; Temp 98; Pulse Ox 94% on 3 lpm NC; ko1 18:33 BP 152 / 87; Pulse 94; Resp 18; Pulse Ox 92% on 3 lpm NC; ld1 20:03 BP 144 / 104; Pulse 106; Resp 19; Pulse Ox 93% on R/A; kd3 22:11 BP 138 / 79; Pulse 96; Resp 19; Pulse Ox 93% on 4 lpm NC; kd3 MDM: 17:51 Patient medically screened. ms3 19:24 Differential diagnosis: Traumatic Mendoza removal versus urethral trauma versus ms3 hematuria. Data reviewed: vital signs, nurses notes, lab test result(s), and as a result, I will admit patient. Consideration of Admission/Observation Patient was admitted/placed on observation. Management of patient was discussed with the following: Hospitalist: Dr. Zamora. Director Of Slot Operations: Dr. Rubin 18 or 20 Divehi coud catheter. He will consult on patient.. I considered the following discharge prescriptions or medication management in the emergency department Medications were administered in the Emergency Department. See MAR. Care significantly affected by the following chronic conditions: Diabetes. Counseling: I had a detailed discussion with the patient and/or guardian regarding the historical points, exam findings, and any diagnostic results supporting the discharge/admit diagnosis, lab results, the need for further work-up and treatment in the hospital. ED course: 20 Divehi coud catheter placed with decrease in bleeding from urethral meatus. Discussed necessity for admission with patient and his son and they understand and agree with plan. 04/06 17:51 Order name: CBC with Diff; Complete Time: 19:52 ms3 04/06 17:51 Order name: BMP; Complete Time: 19:52 ms3 04/06 18:23 Order name: Type And Screen ld1 04/06 20:32 Order name: Urinalysis w/ reflexes EDMS 04/06 20:32 Order name: CBC with Automated Diff EDMS 04/06 20:32 Order name: CBC with Automated Diff EDMS 04/06 20:32 Order name: Comprehensive Metabolic Panel EDMS 04/06 20:32 Order name: Comprehensive Metabolic Panel EDMS Administered Medications: 18:21 Drug: morphine IVP or IV 4 mg IVP once over 4 mins Route: IVP; Infused Over: 4 mins; ld1 Site: left wrist; 22:20 Follow up: Response: No adverse reaction; Pain is decreased kd3 18:21 Drug: Ondansetron IVP 4 mg IVP once; over 2 minutes Route: IVP; Site: left wrist; ld1 22:20 Follow up: Response: No adverse reaction kd3 20:01 Drug: morphine IVP or IV 4 mg IVP once over 4 mins Route: IVP; Infused Over: 4 mins; kd3 Site: right antecubital; 22:20 Follow up: Response: No adverse reaction; Pain is decreased kd3 22:08 Drug: fentaNYL (PF) IVP 100 mcg IVP once Route: IVP; Site: left antecubital; kd3 22:20 Follow up: Response: No adverse reaction; Pain is decreased kd3 22:08 Drug: Ondansetron IVP 4 mg IVP once; over 2 minutes Route: IVP; Site: left antecubital; kd3 22:20 Follow up: Response: No adverse reaction kd3 Disposition Summary: 04/06/24 19:14 Hospitalization Ordered Notes: Hospitalization Status: Observation ms3 Provider: Bj Zamora ms3 Location: Telemetry/MedSurg (observation) ms3 Condition: Stable ms3 Problem: new ms3 Bed/Room Type: Standard ms3 Symptoms: have improved(04/06/24 19:14) ms3 Room Assignment: 204(04/06/24 20:46) jb4 Diagnosis - Disorder of penis, unspecified ms3 - Urethral Trauma due to Mendoza Catheter removal ms3 Forms: - Medication Reconciliation Form ms3 - SBAR form ms3 - Leadership Thank You Letter ms3 Signatures: Dispatcher [employer] EDMS Ravinder Alexander RN RN jb4 Ramon Damico DO DO ms3 Becky Damico RN RN ld1 Lisa Cruz RN RN kd3 Karly Gamboa RN RN koKp Sarmiento MD MD sp4 Corrections: (The following items were deleted from the chart) 19:14 19:14 are unchanged ms3 ms3 19:25 19:20 58-year-old male with past medical history of congestive heart failure, diabetes, ms3 lymphedema, sleep apnea presents to the emergency department via [facility] for penile bleeding. Patient states a home health nurse removed his catheter and replaced it yesterday and it began bleeding. A second RN return to his home today to replace the Mendoza catheter. Patient notes that this was the nurses first time removing a Mendoza catheter and she had not done this prior. He states after removal of the Mendoza catheter his penis began profusely bleeding.. ms3 20:46 19:14 ms3 jb4
--- NOTE | 2024-04-06 20:24 | P.HP ---
Certification for Inpatient Patient admitted to: Observation With expected LOS: <2 Midnights Practitioner: I am a practitioner with admitting privileges, knowledge of patient current condition, hospital course, and medical plan of care. Services: Services provided to patient in accordance with Admission requirements found in Title 42 Section 412.3 of the Code of Federal Regulations Patient History Date of Service: 04/06/24 Reason for admission: Hematuria History of Present Illness: 58 yrs old male with a past medical history of diabetes, congestive heart failure, lymphedema, sleep apnea, obesity, peripheral artery disease, status post right AKA was brought to ER with hematuria. Patient is a poor historian hence most of the history is obtained from the chart review and also talking to family members at the bedside. Family states that they have a new home health nurse . His home health came out today to change out catheter and when it was pulled out he began bleeding with Large amount of blood on scene. Patient denies any pain. No chest pain or shortness of breath. No fever or chills. No nausea vomiting diarrhea. Patient was assessed in the ER and had a Mendoza placed and urology was consulted. Patient is being admitted for further management Allergies No Known Drug Allergies Allergy (Verified 03/24/23 00:07) Unknown Home medications list reviewed: Yes Home Medications: Metformin HCl [Glucophage*] 1,000 mg PO BIDWM 03/24/23 Calcium Carbonate [Oyster Shell Calcium] 500 mg PO DAILY 01/12/24 Cholecalciferol (Vitamin D3) [Vitamin D3] 25 mcg PO BEDTIME 01/12/24 Docusate [Colace Cap] 100 mg PO DAILY 01/12/24 Fluticasone [Flonase 50mcg Nasal Allen] 2 sprays NS BEDTIME 01/12/24 Gabapentin 300 mg PO TID 01/12/24 Insulin Degludec [Tresiba Flextouch U-200] 9 unit SQ DAILY 01/12/24 Tamsulosin [Flomax] 0.4 mg PO DAILY 01/12/24 Tramadol HCl [Ultram] 50 mg PO TIDP PRN 01/12/24 Furosemide 40 mg PO DAILY PRN 30 Days #30 tab 01/13/24 Pregabalin [Lyrica*] 75 mg PO DAILY 90 Days #90 cap 01/13/24 Sacubitril/Valsartan [Entresto 24 mg-26 mg Tablet] 1 tab PO [id number] 90 Days #90 tab 01/13/24 - Past Medical/Surgical History Diabetic: Yes Past Medical History: Reviewed- Non-Contributory -: IDDM -: Lymphedema -: Morbid Obesity -: Kidney stones -: severe neuropathy Past Surgical History: Reviewed- Non-Contributory -: Rt AKA - Family History Family History: Reviewed- Non-Contributory - Social History Smoking Status: Never smoker Alcohol use: No CD- Drugs: No Caffeine use: No Review of Systems 10-point ROS is otherwise unremarkable Physical Examination - Vital Signs Temperature: 97.4 F Blood Pressure: 140/78 Pulse: 76 Respirations: 18 Pulse Ox (%): 94 - Physical Exam General: Alert, Oriented x3, Mild distress, Obese HEENT: Atraumatic, Normocephalic Neck: Supple, 2+ carotid pulse no bruit Respiratory: Clear to auscultation bilaterally, Normal air movement Cardiovascular: Normal pulses, Regular rate/rhythm, Normal S1 S2 Capillary refill: <2 Seconds Gastrointestinal: Soft and benign, W/out hepatosplenomegaly Musculoskeletal: No clubbing, Swelling, Other (R AKA) Integumentary: No rashes Neurological: Normal speech, Normal strength at 5/5 x4 extr Lymphatics: No axilla or inguinal lymphadenopathy - Studies Laboratory Data (last 24 hrs) 04/06/24 04/06/24 18:25 18:25 WBC 14.10 H Hgb 11.9 L Hct 39.0 L Plt Count 149 L Sodium 135 L Potassium 3.9 BUN 10 Creatinine 0.55 L Glucose 214 H Assessment and Plan - Problems (Diagnosis) (1) Hematuria Current Visit: Yes Status: Acute Plan: Hematuria Mendoza was reinserted in ER Monitor closely for any bleeding Urology consult if bleeding continues UTI Leukocytosis Will get IV antibiotic Pain control Monitor closely Diabetes Insulin sliding scale Accu-Chek before every meal and at bedtime Hypertension Antihypertensives titrated Continue home medications and titrate as needed Hyperlipidemia Continue statin Anemia of chronic disease Monitor H&H closely Obesity Advise lifestyle modification Lymphedema Continue compression stockings and wrapping DVT prophylaxis Advanced directive full code Discharge Plan: Home Plan to discharge in: 24 Hours - Advance Directives Does patient have a Living Will: No Does patient have a Durable POA for Healthcare: No Time Spent Managing Pts Care (In Minutes): 48
[2024-04-06] MEDS ORDERED: ONDANSETRON 4 MG/2 ML VIAL IV PRN (20:25)
[2024-04-06] MEDS ORDERED: ACETAMINOPHEN 325 MG TABLET PO PRN (20:25)
[2024-04-06] MEDS ORDERED: FENTANYL CITR 100 MCG/2 ML ONE (21:26)
[2024-04-06] MEDS: TRAMADOL HCL 50 MG TAB PO PRN (23:16)
[2024-04-06] MEDS: CEFTRIAXONE 1,000 MG in NA CHLORIDE 0.9% 50 ML IVPB SCH (23:16)
[2024-04-07 00:46] LABS: Specific Gravity 1.015 (1.005-1.030); Sqamous Epithelial None Seen /HPF (None Seen); Urine Bacteria None Seen /HPF (<20); Urine Bilirubin NEGATIVE (Negative); Urine Blood 3+ (OVER) (Negative); Urine Clarity Extremely Turbid (Clear); Urine Color Red (Yellow); Urine Culture Reflex Order REFLEXED; Urine Glucose NEGATIVE (Negative); Urine Ketones NEGATIVE (Negative); Urine Microscopic Reflex YN ORDER UMIC; Urine Nitrite NEGATIVE (Negative); Urine Protein 2+ (Negative); Urine RBC >50 /HPF (None Seen); Urine Urobilinogen 1+ (Normal); Urine WBC >50 /HPF (<5); Urine pH 6.5 (5.0-7.0)
[2024-04-07 03:11] LABS: Absolute Lymphocytes (CBC) 0.9 K/uL (0.7-4.9); Absolute Monocytes 0.9 K/uL (0.1-1.3); Absolute Neutrophil 13.3 K/uL (1.8-8.0); Basophils % 0.1 % (0-1.3); Hematocrit 34.9 % (39.6-49.0); Hemoglobin 10.8 g/dL (13.6-17.9); MCH 24.1 pg (27.0-35.0); MCHC 30.8 g/dL (32.0-36.0); MCV 78.2 fL (80-100); MPV 11.3 fL (7.6-11.3); Monocytes % 5.9 % (3.3-12.3); Platelets 153 thou/uL (152-406); RBC Red Blood Cell Count 4.46 M/uL (4.33-5.43); Red Cell Distribution Width 16.3 % (12.1-15.2)
[2024-04-07 03:31] LABS: ALT/SGPT 17 U/L (16-61); Albumin/Globulin Ratio 0.8 (1.1-1.8); Alkaline Phosphatase 102 U/L (45-117); Anion Gap 3.9 mEq/L (5.0-15.0); BUN Blood Urea Nitrogen 12 mg/dL (7-18); Bicarbonate 37 mEq/L (21-32); Bilirubin Total 0.6 mg/dL (0.2-1.0); Globulin 3.9 g/dL (2.3-3.5); Glomerular Filtration Rate 119 ml/min (=/>90); Glucose Level 183 mg/dL (74-106); Potassium 3.9 mEq/L (3.5-5.1); Protein, Total 6.9 g/dL (6.4-8.2); Sodium Level 135 mEq/L (136-145)
[2024-04-07 03:32] LABS: AST/SGOT < 10 U/L (15-37)
[2024-04-07 04:51] LABS: Band Neutrophils 6 % (0-1); Blood Morphology Comment NOT SEEN (NOT SEEN); Differential Total Cells Count 100; Lymphocytes 10 % (15-42); Monocytes 4 % (0-10); Platelet Estimate ADEQ; Segmented Neutrophils 80 % (40-80)
[2024-04-07] MEDS: SACUBITRIL/VALSARTAN 24/26 MG TAB PO SCH (05:37)
[2024-04-07] MEDS: MORPHINE 4 MG/ML SYR IV PRN (06:36)
--- NOTE | 2024-04-07 07:26 | P.PN ---
Subjective Date of Service: 04/07/24 Chief Complaint: Hematuria was brought to ER with hematuria after home health came out today to change out catheter Replaced Mendoza catheter, urology consult placed, suprapubic tenderness, no reported fever IV Merrem for history of ESBL, with noted leukocytosis, <Tisha Arvizu - Last Filed: 04/07/24 13:25> Date of Service: 04/07/24 <Lacy Hagen - Last Filed: 04/11/24 07:27> Review of Systems Per HPI <Tisha Arvizu - Last Filed: 04/07/24 13:25> Physical Examination - Vital Signs Temperature: 98.7 F Blood Pressure: 122/71 Pulse: 94 Respirations: 16 Pulse Ox (%): 96 - Physical Exam General: Alert, Oriented x3 HEENT: Atraumatic Neck: Supple, JVD not distended Respiratory: Normal air movement Cardiovascular: Normal pulses, Regular rate/rhythm Gastrointestinal: Soft and benign Integumentary: No breakdown Neurological: Normal speech, Normal strength at 5/5 x4 extr External genitalia: Other (Indwelling Mendoza catheter) - Studies Laboratory Data (last 24 hrs) 04/06/24 04/06/24 18:25 18:25 WBC 14.10 H Hgb 11.9 L Hct 39.0 L Plt Count 149 L Sodium 135 L Potassium 3.9 BUN 10 Creatinine 0.55 L Glucose 214 H <Tisha Arvizu - Last Filed: 04/07/24 13:25> Assessment And Plan - Plan Assessment plan Chronic indwelling Mendoza cath Hematuria Earlier reinserted in the emergency room Monitor closely for any bleeding urology consult for hematuria UA greater than 50 RBCs greater than 50 WBCs,, turbid, w hematuria Gentle IV fluid Renal ultrasound ordered History of ESBL Leukocytosis Will get IV antibiotic IV Merrem for prior ESBL, Pain control Monitor closely Monitor cultures Diabetes unknown control Insulin sliding scale Accu-Chek before every meal and at bedtime Hyperlipidemia Hypertension Antihypertensives titrated Resume appropriate home meds Continue statin Anemia of chronic disease Monitor H&H closely Obesity Advise lifestyle modification Lymphedema Continue compression stockings and wrapping DVT prophylaxis Advanced directive full code Discharge Plan: Home Critical Care: No Time Spent Managing PTS Care (In Minutes): 35 <Tisha Arvizu - Last Filed: 04/07/24 13:25> Date of Service: 04/07/24 Patient was seen and examined. Events of the last 24 hours have been noted. Spoke with with ARMANDO regarding patient's clinical picture after evaluating and e xamining the patient independently. I performed a substantial part of the MDM during this patient's care today. I personally made or approved the documented management plan and acknowledge its risk of complications. I agree with the findings and documentation provided in the ARMANDO's notes. Patient with significant hematuria. Moved to ICU as patient's blood pressures been low. Urology was consulted and they will see the patient later this evening. No significant obstruction noted. Patient's hematuria has improved through the day. Hemoglobin is stable. Continue to monitor and transfuse as needed. Patient incidentally also noted that since October of this year he has not been able to move his arms or his legs. Patient states this is chronic and he is seeing a neurologist regarding this. Patient will get further imaging studies once he stabilizes. <Lacy Hagen - Last Filed: 04/11/24 07:27>
[2024-04-07] MEDS: TAMSULOSIN 0.4 MG SR CAP PO SCH (08:14)
[2024-04-07] MEDS: Meropenem 1,000 MG in NA CHLORIDE 0.9% 100 ML IV SCH (08:14)
[2024-04-07] MEDS: GABAPENTIN 300 MG CAP PO SCH (08:14)
[2024-04-07] MEDS ORDERED: PIPER TAZO 3.375 GM in NA CHLORIDE 0.9% 100 ML IV SCH (09:00)
[2024-04-07] MEDS: NACL 0.9% IRR SOLN 2,000 ML IRR ONE ×4 (09:41→13:35)
[2024-04-07] MEDS: NA CHLORIDE 0.9% 1,000 ML IV SCH (10:24)
[2024-04-07] MEDS: NA CHLORIDE 0.9% 250 ML IV ONE ×2 (10:24→12:15)
[2024-04-07 11:49] LABS: Anion Gap 7.8 mEq/L (5.0-15.0); Magnesium 2.3 mg/dL (1.6-2.4); Potassium 3.8 mEq/L (3.5-5.1)
[2024-04-07 12:23] LABS: Absolute Eosinophils 0.1 K/uL (0-0.5); Absolute Lymphocytes (CBC) 1.1 K/uL (0.7-4.9); Absolute Monocytes 0.9 K/uL (0.1-1.3); Absolute Neutrophil 8.9 K/uL (1.8-8.0); Basophils % 0.3 % (0-1.3); Eosinophils % 1.1 % (0-4.4); Hematocrit 32.7 % (39.6-49.0); Lymphocytes % 9.9 % (15.3-44.8); MCH 23.6 pg (27.0-35.0); MCHC 30.5 g/dL (32.0-36.0); MCV 77.5 fL (80-100); MPV 10.4 fL (7.6-11.3); Monocytes % 7.8 % (3.3-12.3); Neutrophils % 80.9 % (41.7-73.7); Platelets 133 thou/uL (152-406); RBC Red Blood Cell Count 4.22 M/uL (4.33-5.43)
[2024-04-07 12:30] LABS: Percent Reticulocyte Count 1.63 % (0.4-2.05)
[2024-04-07] MEDS ORDERED: NACL 0.9% IRR SOLN 2,000 ML IRR SCH (15:00)
[2024-04-07] MEDS ORDERED: SODIUM CHL 0.9% IRR SOLN 2000 ML IRR SCH (15:00)
--- NOTE | 2024-04-07 17:14 | RAD REPORT ---
EXAM DESCRIPTION: US - Renal Ultrasound-Complete - 04/07/2024 3:42 pm CLINICAL HISTORY: eval hydronephrosis, stone COMPARISON: Abdomen Pelvis W Contrast dated 03/23/2023 TECHNIQUE: Sonographic grayscale and color flow images of the kidneys and bladder were obtained. FINDINGS: Both kidneys are normal in size, shape, and echotexture. Evaluation is limited due to poor penetration. The right kidney measures 11.8 cm in length. No hydronephrosis, focal mass, or echogenic calculi. Mil d perinephric edema versus trace free fluid in the Vega's pouch. The left kidney measures 11.8 cm in length. No hydronephrosis, focal mass, or echogenic calculi. The urinary bladder is decompressed limiting evaluation. IMPRESSION: No evidence of hydronephrosis or focal parenchymal abnormality. Mild right perinephric edema versus trace ascites in the right Vega's pouch.
[2024-04-07] MEDS: SODIUM CHLORIDE IRRIG SOLUTION 2,000 ML IRR SCH (17:27)
[2024-04-07] MEDS: ALBUMIN HUMAN 25% 100 ML IV SCH (18:00)
[2024-04-07 18:16] LABS: Hematocrit 30.2 % (39.6-49.0); Hemoglobin 9.4 g/dL (13.6-17.9)
[2024-04-07] MEDS: NA CHLORIDE 0.9% 250 ML IV PRN (19:51)
[2024-04-07] MEDS: BACITRACIN OINTMENT 14 GM TUBE TOP SCH (21:00)
--- NOTE | 2024-04-07 21:55 | P.CNS ---
Date of Consult: 04/07/24 Reason for Consult: Gross urethral bleeding/hematuria Chief Complaint: Hematuria History of Present Illness: 58-year-old gentleman with DM 2, CHF, lymphedema, MIRELLA, morbid obesity, PAD s/p right AKA with dense phimosis prohibiting catheter placement in the setting of acute urinary retention on a prior admission, p bedside dorsal slit and meatal dilation with urethral Mendoza catheter placement. He was plan for outpatient follow-up to undergo evaluation of the etiology of his urinary retention, but because of the patient's immobility, he found having the catheter a more pleasant way to live then wearing depends undergarments, since he cannot get up and go to the bathroom, and he preferred to simply keep the catheter in place. As a result, he has been undergoing routine catheter exchanges via my office until recently, when he had the catheter exchanged by home health agency. Apparently, when they inserted the catheter, the nurse blew up the balloon and the patient complained of perineal/rectal area pain, but the nurse suggested he needed to rest or alter something about his positioning, and she continued and left the catheter in place. The patient subsequently developed progressive lower abdominal pain and gross periurethral bleeding presumably because the catheter was malpositioned and likely inflated in the prostate. So he went to the emergency department with severe abdominal pain. There, they reposition the catheter and drained his bladder of very bloody urine. He experienced significant relief with a catheter placement, but there was still significant periurethral bleeding. The emergency department contacted me, and I inquired what size catheter they had in place. They have placed a 14 Gambian coud catheter, and I explained that that would be insufficient to tamponade any urethral bleeding from catheter trauma and that at least an 18 if not a 20 [place]ian catheter should be placed. Since then, the patient has been admitted and placed on meropenem IV antimicrobial therapy. The was subsequently transferred to the ICU because of some issues with hypotension, but he was not pressor requiring. They continued him on CBI following the admission. Past medical history and past surgical history as above No known drug allergies Examination: Patient well-appearing and in no acute distress Alert, awake, oriented No dyspnea or sign of respiratory distress Comfortable and well-appearing Genitalia: A lot of old dried blood around the foreskin and infrapubic region and around the catheter. CBI on slow drip and pink in tubing. 04/06/2024 to 04/07/2024 labs: WBC 14.1 down to 11.0 Creatinine 0.66 Hemoglobin 11.9 down to 9.4 Platelets 133 Urine culture pending 04/07/2024 renal ultrasound IMPRESSION: No evidence of hydronephrosis or focal parenchymal abnormality. Mild right perinephric edema versus trace ascites in the right Vega's pouch. I thus utilized hydrogen peroxide to dissolve away all of the old dried blood from his infrapubic region around the penis and the glans and the catheter successfully. I was then able to assess the phallus and the prior dorsal slit site. Dorsal slit open sufficient to retract the foreskin and visualize at least half of the distal portion of the glans. Whitish skin change within the prep use consistent with BX oh, but no current malignant changes noted. Catheter was in the meatus. Catheter/bladder irrigation procedure note: I then the catheter from the attached drainage bag and clamped the CBI. I then irrigated the catheter copiously with about 300 cc of normal saline, and I only retrieved a few small old formed clots off the wall of his bladder. I was somewhat aggressive at the irrigation in order to ensure no significant clot burden was within, and once I was convinced, I discontinued irrigation and reconnected the catheter back to the drainage bag. The drainage of urine was minimally pink and mostly clear. I then capped the CBI port and discontinue the CBI instructing the nurse to observe off CBI and manually irrigate the catheter as needed red gross hematuria redeveloping. Notify me if the urine becomes persistently red and requires resumption of CBI. I also showed the nurse how to cleanse around the catheter insertion site with peroxide and then asked her to apply bacitracin around the meatus twice daily to keep it clean. Assessment and recommendation: 58-year-old gentleman with DM 2, CHF, lymphedema, MIRELLA, morbid obesity, PAD s/p right AKA with dense phimosis prohibiting catheter placement in the setting of acute urinary retention on a prior admission, p bedside dorsal slit and meatal dilation with urethral Mendoza catheter placement, now chronically indwelling, but catheter malpositioned and balloon blown up in the prostatic fossa contributing to gross hematuria and pericatheter urethral bleeding, now with hypotension likely due to complicated UTI from translocation of colonizing bacteria associated with his chronic urethral catheterization. -Given the potential for nosocomial and resistant organism causing his infection, agree with aggressive antimicrobial therapy via meropenem or potentially Zosyn or cefepime as Pseudomonas is a common cause. -Follow-up urine cultures taken in the emergency department -As above, manually irrigate Mendoza if red gross hematuria develops, and if persistent, may resume CBI, but notify me. -Otherwise, patient should follow-up in my office for next catheter exchange and likely downsizing to an 18 [place]ian coud in the next 4 to 6 weeks -Every 3 months, patient should be scheduled to see me for surveillance/examination of the foreskin and dorsal slit area given the known BXO changes to prevent missed progression to penile SCCa. Alternatively, patient may consider operative management including definitive circumcision, but this is likely a poor option since his wound healing may be impaired based on his diabetes and PAD, and also because of his morbid obesity and the retraction of the phallus associated, significant adhesions may develop during the healing process that could make the situation all the more complicated. -As a result, taking into consideration the above, I recommend patient care for his phallus by twice a day care -essentially he should resume applying triamcinolone nystatin or alternatively Lotrisone ointment to the foreskin and the head of the penis once a day, after cleansing with soap and water or gentle hydrogen peroxide, and the other time of the day, bacitracin/triple antibiotic ointment should be applied. Allergies No Known Drug Allergies Allergy (Verified 03/24/23 00:07) Unknown Home medications list reviewed: Yes Home Medications: Metformin HCl [Glucophage*] 1,000 mg PO BIDWM 03/24/23 Calcium Carbonate [Oyster Shell Calcium] 500 mg PO DAILY 01/12/24 Cholecalciferol (Vitamin D3) [Vitamin D3] 25 mcg PO BEDTIME 01/12/24 Docusate [Colace Cap] 100 mg PO DAILY 01/12/24 Fluticasone [Flonase 50mcg Nasal Oakes] 2 sprays NS BEDTIME 01/12/24 Gabapentin 300 mg PO TID 01/12/24 Insulin Degludec [Tresiba Flextouch U-200] 9 unit SQ DAILY 01/12/24 Tamsulosin [Flomax] 0.4 mg PO DAILY 01/12/24 Tramadol HCl [Ultram] 50 mg PO TIDP PRN 01/12/24 Furosemide 40 mg PO DAILY PRN 30 Days #30 tab 01/13/24 Pregabalin [Lyrica*] 75 mg PO DAILY 90 Days #90 cap 01/13/24 Sacubitril/Valsartan [Entresto 24 mg-26 mg Tablet] 1 tab PO [id number] 90 Days #90 tab 01/13/24 - Past Medical/Surgical History Diabetic: Yes -: IDDM -: Lymphedema -: Morbid Obesity -: Kidney stones -: severe neuropathy -: Rt AKA - Social History Smoking Status: Unknown if ever smoked Alcohol use: No CD- Drugs: No Caffeine use: No Physical Examination Temp Pulse Resp BP Pulse Ox 98.1 F 71 18 95/50 L 96 04/07/24 20:00 04/07/24 20:00 04/07/24 20:00 04/07/24 20:00 04/07/24 20:00 Laboratory Data (last 24 hrs) 04/07/24 04/07/24 04/07/24 11:06 11:06 02:43 WBC 11.00 H Hgb 10.0 L Hct 32.7 L Plt Count 133 L Sodium 134 L 135 L Potassium 3.8 3.9 BUN 16 12 Creatinine 0.66 L 0.49 L Glucose 196 H 183 H Magnesium 2.3 Total Bilirubin 0.6 AST < 10 L ALT 17 Alkaline Phosphatase 102 04/07/24 02:43 WBC 15.10 H Hgb 10.8 L D Hct 34.9 L Plt Count 153 Sodium Potassium BUN Creatinine Glucose Magnesium Total Bilirubin AST ALT Alkaline Phosphatase - Problems (1) Transient iatrogenic urethral bleeding Current Visit: Yes Status: Acute (2) Complicated UTI (urinary tract infection) Current Visit: Yes Status: Acute (3) Mendoza catheter problem Current Visit: Yes Status: Acute (4) BPH w urinary obs/LUTS Current Visit: Yes Status: Acute (5) Hematuria Current Visit: Yes Status: Acute (6) BXO (balanitis xerotica obliterans) Current Visit: No Status: Acute Conclusions/Impression: see A&P in HPI Critical Care: No Time Spent Managing Pts care (In Minutes): 75
[2024-04-08 05:15] LABS: Absolute Eosinophils 0.4 K/uL (0-0.5); Absolute Lymphocytes (CBC) 1.3 K/uL (0.7-4.9); Absolute Monocytes 0.5 K/uL (0.1-1.3); Absolute Neutrophil 5.3 K/uL (1.8-8.0); Basophils % 0.4 % (0-1.3); Eosinophils % 4.7 % (0-4.4); Hematocrit 28.6 % (39.6-49.0); Hemoglobin 8.8 g/dL (13.6-17.9); Lymphocytes % 17.8 % (15.3-44.8); MCHC 30.8 g/dL (32.0-36.0); MCV 78.1 fL (80-100); MPV 10.8 fL (7.6-11.3); Neutrophils % 70.1 % (41.7-73.7); Platelets 122 thou/uL (152-406); RBC Red Blood Cell Count 3.66 M/uL (4.33-5.43); Red Cell Distribution Width 16.3 % (12.1-15.2)
[2024-04-08 05:25] LABS: Anion Gap 3.1 mEq/L (5.0-15.0); Magnesium 2.5 mg/dL (1.6-2.4); Potassium 4.1 mEq/L (3.5-5.1)
[2024-04-08] MEDS: ACETYLCYST 20% 4 ML VIAL IH PRN (06:30)
[2024-04-08] MEDS: ALBUTEROL 2.5 MG/3 ML NEB SOL NEB PRN (06:30)
[2024-04-08] MEDS ORDERED: ACETYLCYST 20% 4 ML VIAL IH PRN (07:00)
--- NOTE | 2024-04-08 07:43 | P.PN ---
Date of Service: 04/08/24 Subjective Date of Service: 04/07/24 Chief Complaint: Hematuria Presented with traumatic hematuria secondary to Mendoza placement no complaint of pain, Morbid obesity, total care, resides at home with home Review of Systems Per HPI VS Reviewed Physical Examination General: Afebrile, morbidly obese chronic Respiratory:equal unlabored Cardiovascular: Regular rate and rhythm Gastrointestinal:s suprapubic tenderness, obese abdomen Integumentary: No breakdown Neurological: Normal speech, Normal strength at 5/5 x4 extr External genitalia: Other (Indwelling Mendoza catheter) Assessment And Plan Chronic indwelling Mendoza cath Hematuria Mendoza replaced in ED Gentle IV fluid Renal ultrasound ordered no hydronephrosis or renal calculi History of ESBL Leukocytosis Will get IV antibiotic IV Merrem for prior ESBL, Pain control Monitor closely Monitor cultures Diabetes unknown control Insulin sliding scale Accu-Chek before every meal and at bedtime Hyperlipidemia Hypertension Antihypertensives titrated Resume appropriate home meds Continue statin Anemia of chronic disease Monitor H&H closely 10, 9.4, 8.8 not on AC Obesity Advise lifestyle modification Lymphedema Continue compression stockings and wrapping supportive care DVT prophylaxis Advanced directive full code Disposition, Home with [facility] <Tisha Arvziu - Last Filed: 04/10/24 14:36> Patient was seen and examined. Events of the last 24 hours have been noted. Spoke with with ARMANDO regarding patient's clinical picture after evaluating and examining the patient independently. I performed a substantial part of the MDM during this patient's care today. I personally made or approved the documented management plan and acknowledge its risk of complications. I agree with the findings and documentation provided in the ARMANDO's notes. Continue with monitoring H& H. Hematuria has pretty much improved significantly. Urology saw the patient overnight. No intervention. Patient will need leg bag and arrange for discharge planning. <Lacy Hagen - Last Filed: 04/11/24 07:29>
[2024-04-08] MEDS: BACITRACIN OINTMENT 14 GM TUBE TOP SCH (08:22)
[2024-04-08] MEDS: JUVEN PACKET PO SCH (21:29)
[2024-04-08 22:49] VITALS: BMI 43.4
[2024-04-09 04:57] LABS: Absolute Eosinophils 0.3 K/uL (0-0.5); Absolute Lymphocytes (CBC) 1.4 K/uL (0.7-4.9); Absolute Monocytes 0.4 K/uL (0.1-1.3); Absolute Neutrophil 4.5 K/uL (1.8-8.0); Basophils % 0.4 % (0-1.3); Hematocrit 27.4 % (39.6-49.0); Hemoglobin 8.5 g/dL (13.6-17.9); Lymphocytes % 21.5 % (15.3-44.8); MCH 24.2 pg (27.0-35.0); MCHC 30.8 g/dL (32.0-36.0); MCV 78.4 fL (80-100); MPV 11.2 fL (7.6-11.3); Monocytes % 6.7 % (3.3-12.3); Neutrophils % 67.4 % (41.7-73.7); Platelets 133 thou/uL (152-406); Red Cell Distribution Width 16.2 % (12.1-15.2)
[2024-04-09 05:16] LABS: Anion Gap 3.9 mEq/L (5.0-15.0); Magnesium 2.3 mg/dL (1.6-2.4); Potassium 3.9 mEq/L (3.5-5.1)
--- NOTE | 2024-04-09 06:49 | P.PN ---
Subjective Date of Service: 04/07/24 Chief Complaint: Hematuria was tranfered to ICU for hypotension, family at bedside, hematuria slowly improving resided home HH, morbid obese, total care Review of Systems Per HPI - Vital Signs VS Reviewed Physical Examination General: Oriented x3, morbid obese, total care HEENT: Atraumatic Respiratory: Normal air movement Cardiovascular: Normal pulses, Regular rate/rhythm Gastrointestinal:s suprapubic tenderness Integumentary: No breakdown Neurological: Normal speech, Normal strength at 5/5 x4 extr External genitalia: Other (Indwelling Mendoza catheter hematuria) Assessment And Plan Chronic indwelling Mendoza cath Hematuria likely secondary to trauma Mendoza replaced in ED Monitor closely for any bleeding urology consult for hematuria UA greater than 50 RBCs greater than 50 WBCs,, turbid, w hematuria Gentle IV fluid Renal ultrasound ordered no hydronephrosis or renal calculi History of ESBL Leukocytosis Will get IV antibiotic IV Merrem for prior ESBL, Pain control Monitor closely Monitor cultures Diabetes unknown control Insulin sliding scale Accu-Chek before every meal and at bedtime Hyperlipidemia Hypertension Antihypertensives titrated Resume appropriate home meds Continue statin Anemia of chronic disease Monitor H&H closely 10, 9.4, 8.8 not on AC Obesity Advise lifestyle modification Lymphedema Continue compression stockings and wrapping supportive care DVT prophylaxis Advanced directive full code Disposition, Home with [facility], is primary caregiver is consider SNF <Tisha Arvizu - Last Filed: 04/10/24 17:09> Date of Service: 04/09/24 <Lacy Hagen - Last Filed: 04/11/24 07:30>
[2024-04-09] MEDS: POTASSIUM CL SA 10 MEQ TAB PO ONE (08:09)
[2024-04-09] MEDS: POLYETHYL GLY 3350 17 GM/DOSE PO ONE (16:53)
--- NOTE | 2024-04-09 18:05 | RAD REPORT ---
EXAM DESCRIPTION: CT - Head C Spine Cap Wo Con - 04/09/2024 4:29 pm CLINICAL HISTORY: Head and neck injury with chest and abdominal pain status post fall. Paraplegia TECHNIQUE: Computed axial tomography of head, neck, chest, abdomen and pelvis obtained. IV and oral contrast not requested. Coronal and sagittal reconstruction performed. All CT scans are performed using dose optimization technique as appropriate and may include automated exposure control or mA/KV adjustment according to patient size. COMPARISON: December [address] abdomen FINDINGS: An intracranial bleed is not seen. The ventricles are normal in caliber. An extra-axial fluid collection is not noted. Fluid within the sinuses/mastoids is not seen. A cervical fracture is not seen. No dislocation is noted. 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 There is marked compression upon spinal cord. The evaluation of mediastinum, jose angel, vessels, solid organs and bowel are limited secondary to the lac k of contrast administration. A mediastinal hematoma is not noted. A pleural effusion is not seen. A lung contusion is not present. Left lower lobe consolidation. The liver,spleen, pancreas, adrenals,kidneys and bladder do not demonstrate an acute traumatic injury Mendoza catheter within the bladder. Stranding adjacent to the bladder Small umbilical hernia Ankylosing spondylitis spine and pelvis Spondylosis lumbar spine results in spinal stenosis IMPRESSION: No acute intracranial abnormality is seen. A cervical fracture is not visualized. 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
[2024-04-10 03:13] LABS: Absolute Eosinophils 0.2 K/uL (0-0.5); Absolute Lymphocytes (CBC) 1.3 K/uL (0.7-4.9); Absolute Monocytes 0.4 K/uL (0.1-1.3); Absolute Neutrophil 3.8 K/uL (1.8-8.0); Basophils % 0.5 % (0-1.3); Eosinophils % 3.7 % (0-4.4); Hematocrit 28.1 % (39.6-49.0); Hemoglobin 8.8 g/dL (13.6-17.9); Lymphocytes % 22.2 % (15.3-44.8); MCH 24.4 pg (27.0-35.0); MCHC 31.3 g/dL (32.0-36.0); MCV 78.1 fL (80-100); MPV 9.7 fL (7.6-11.3); Monocytes % 6.2 % (3.3-12.3); Neutrophils % 67.4 % (41.7-73.7); Nucleated Red Blood Cells % 0.1 % (0-0); Platelets 129 thou/uL (152-406); Red Cell Distribution Width 16.3 % (12.1-15.2)
[2024-04-10 03:37] LABS: Rheumatoid Factor NEG (NEG)
[2024-04-10 03:50] LABS: ALT/SGPT 18 U/L (16-61); Albumin 2.9 g/dL (3.4-5.0); Albumin/Globulin Ratio 0.9 (1.1-1.8); Alkaline Phosphatase 85 U/L (45-117); Anion Gap 1.1 mEq/L (5.0-15.0); BUN Blood Urea Nitrogen 15 mg/dL (7-18); Bicarbonate 39 mEq/L (21-32); Bilirubin Total 0.5 mg/dL (0.2-1.0); C-Reactive Protein 8.11 mg/L (<3.00); Globulin 3.4 g/dL (2.3-3.5); Glomerular Filtration Rate 132 ml/min (=/>90); Glucose Level 175 mg/dL (74-106); Magnesium 2.1 mg/dL (1.6-2.4); Potassium 4.1 mEq/L (3.5-5.1); Protein, Total 6.3 g/dL (6.4-8.2); Sodium Level 137 mEq/L (136-145)
[2024-04-10 04:38] LABS: AST/SGOT < 10 U/L (15-37)
[2024-04-10] MEDS: POTASS/SODIUM PHOSPHATE 1 PKT POWD.PACK PO SCH (08:44)
--- NOTE | 2024-04-10 14:39 | P.PN ---
Date of Service: 04/10/24 Subjective Date of Service: 04/07/24 Chief Complaint: Hematuria Patient is total care, bedrest Presented with traumatic hematuria secondary to Mendoza placement no complaint of pain, evaluated by Dr. Skinner Review of Systems Per HPI VS Reviewed Physical Examination General: Morbid obesity Respiratory:equal unlabored Cardiovascular: Regular rate and rhythm, lower extremity edema Gastrointestinal:s suprapubic tenderness, obese abdomen Integumentary: Bilateral legs wrapped Neurological: Normal speech, Normal strength at 5/5 x4 extr External genitalia: Other (Indwelling Mendoza catheter) Assessment And Plan Chronic indwelling Mendoza cath Hematuria Mendoza replaced in ED Gentle IV fluid Renal ultrasound ordered no hydronephrosis or renal calculi History of ESBL Leukocytosis Will get IV antibiotic IV Merrem for prior ESBL, Pain control Monitor closely Monitor cultures Diabetes unknown control Insulin sliding scale Accu-Chek before every meal and at bedtime Hyperlipidemia Hypertension Antihypertensives titrated Resume appropriate home meds Continue statin Anemia of chronic disease Monitor H&H closely 10, 9.4, 8.8 not on AC Obesity Advise lifestyle modification Lymphedema Continue compression stockings and wrapping supportive care DVT prophylaxis Advanced directive full code Disposition, Home with [facility]
[2024-04-11 04:29] LABS: Anion Gap 4.2 mEq/L (5.0-15.0); Phosphorus 2.2 mg/dL (2.5-4.9); Potassium 4.2 mEq/L (3.5-5.1)
[2024-04-11] MEDS: POTASS/SODIUM PHOSPHATE 1 PKT POWD.PACK PO SCH ×2 (05:02→09:23)
--- NOTE | 2024-04-11 12:47 | P.PN ---
Subjective Date of Service: 04/11/24 Chief Complaint: Hematuria Pt is resting comfortably in bed. Pt still has hematuria in the prajapati bag. He has lymphedema on left leg and right AKA. Waiting for Urology eval. No other complaint. Review of Systems General: Unremarkable Eyes: Unremarkable ENT: Unremarkable Cardiovascular: Unremarkable Gastrointestinal: Unremarkable Genitourinary: Unremarkable Musculoskeletal: Other (Left leg lymphedema and right AKA) Integumentary: Unremarkable Neurological: Unremarkable Lymphatics: Unremarkable Physical Examination - Vital Signs Temperature: 97.7 F Blood Pressure: 135/64 Pulse: 82 Respirations: 16 Pulse Ox (%): 92 - Physical Exam General: Alert, In no apparent distress, Oriented x3, Obese HEENT: Atraumatic, Normocephalic, PERRLA Neck: Supple, 2+ carotid pulse no bruit, JVD not distended Respiratory: Clear to auscultation bilaterally, Normal air movement Cardiovascular: No edema, Normal pulses, Regular rate/rhythm, Normal S1 S2 Capillary refill: <2 Seconds Gastrointestinal: Normal bowel sounds, Soft and benign, Non-distended Musculoskeletal: No clubbing, No swelling, No contractures Integumentary: No rashes, No breakdown, No significant lesion Neurological: Normal speech, Normal strength at 5/5 x4 extr, Normal tone Lymphatics: No axilla or inguinal lymphadenopathy Assessment And Plan - Plan Chronic indwelling Prajapati cath / Hematuria: Likely secondary to prajapati trauma. hematuria is improving. Will continue IV fluids. Monitor H& H. Appreciate Urology input. History of ESBL / Leukocytosis: Continue iv merrem. Diabetes: Will continue accuchek, SSI and ADA diet Hyperlipidemia: Statin Hypertension: Will continue home med Anemia of chronic disease: Hgb is 8.8. Will monitor H/H. Obesity: Pt was advised to lose weight. Lymphedema: Continue compression stockings and wrapping. Continue supportive care Bilateral upper and lower extremity weakness: Imaging study with cord compression. paraplegic since October of this year. Unfortunately patient did have extensive workup performed. Prognosis For recovery is poor. Pt has Neurology consultation this week on outpatient. DVT ppx: SCD Code: full code Dispo: Will dc pt to Home with [facility], is primary caregiver is consider SNF
[2024-04-11] MEDS: Levofloxacin 750mg IV 750 MG/150 ML BAG IV SCH (17:23)
[2024-04-11] MEDS: FUROSEMIDE 40 MG/4 ML VIAL IV ONE (20:54)
[2024-04-12 07:57] LABS: Absolute Eosinophils 0.2 K/uL (0-0.5); Absolute Lymphocytes (CBC) 1.6 K/uL (0.7-4.9); Absolute Monocytes 0.4 K/uL (0.1-1.3); Absolute Neutrophil 5.5 K/uL (1.8-8.0); Basophils % 0.6 % (0-1.3); Eosinophils % 2.3 % (0-4.4); Hematocrit 28.5 % (39.6-49.0); MCH 24.4 pg (27.0-35.0); MCHC 31.7 g/dL (32.0-36.0); MCV 77.2 fL (80-100); MPV 9.8 fL (7.6-11.3); Monocytes % 4.9 % (3.3-12.3); Neutrophils % 71.2 % (41.7-73.7); Nucleated Red Blood Cells % 0.2 % (0-0); Platelets 152 thou/uL (152-406); Red Cell Distribution Width 15.9 % (12.1-15.2)
[2024-04-12 08:16] LABS: Anion Gap 4.8 mEq/L (5.0-15.0); Phosphorus 2.8 mg/dL (2.5-4.9); Potassium 3.8 mEq/L (3.5-5.1)
--- NOTE | 2024-04-12 14:25 | P.DS ---
Admission Date: 04/07/24 Discharge Date: 04/12/24 Disposition: DC HOME/HOME HEALTH CARE Discharge Condition: FAIR Reason for Admission: Hematuria Vital Signs/Physical Exam: Temp Pulse Resp BP Pulse Ox 98.5 F 87 16 110/59 L 91 04/12/24 12:00 04/12/24 12:00 04/12/24 12:00 04/12/24 12:00 04/12/24 12:00 Laboratory Data at Discharge: WBC 7.70 thou/uL (4.3-10.9) 04/12/24 07:42 Hgb 9.0 g/dL (13.6-17.9) L 04/12/24 07:42 Hct 28.5 % (39.6-49.0) L 04/12/24 07:42 Plt Count 152 thou/uL (152-406) 04/12/24 07:42 Sodium 137 mEq/L (136-145) 04/12/24 07:42 Potassium 3.8 mEq/L (3.5-5.1) 04/12/24 07:42 BUN 18 mg/dL (7-18) 04/12/24 07:42 Creatinine 0.32 mg/dL (0.70-1.30) L 04/12/24 07:42 Glucose 127 mg/dL (74-106) H 04/12/24 07:42 Phosphorus 2.8 mg/dL (2.5-4.9) 04/12/24 07:42 Magnesium 2.1 mg/dL (1.6-2.4) 04/10/24 02:56 Magnesium Cancelled 04/10/24 02:56 Total Bilirubin 0.5 mg/dL (0.2-1.0) 04/10/24 02:56 AST < 10 U/L (15-37) L 04/10/24 02:56 ALT 18 U/L (16-61) 04/10/24 02:56 Alkaline Phosphatase 85 U/L (45-117) 04/10/24 02:56 Home Medications: Metformin HCl [Glucophage*] 1,000 mg PO BIDWM 03/24/23 Calcium Carbonate [Oyster Shell Calcium] 500 mg PO DAILY 01/12/24 Cholecalciferol (Vitamin D3) [Vitamin D3] 25 mcg PO BEDTIME 01/12/24 Docusate [Colace Cap*] 100 mg PO DAILY 01/12/24 Fluticasone [Flonase 50MCG Nasal [place]*] 2 sprays NS BEDTIME 01/12/24 Gabapentin 300 mg PO TID 01/12/24 Insulin Degludec [Tresiba Flextouch U-200] 9 unit SQ DAILY 01/12/24 Tamsulosin [Flomax*] 0.4 mg PO DAILY 01/12/24 Tramadol HCl [Ultram] 50 mg PO TIDP PRN 01/12/24 Furosemide 40 mg PO DAILY PRN 30 Days #30 tab 01/13/24 Pregabalin [Lyrica*] 75 mg PO DAILY 90 Days #90 cap 01/13/24 Sacubitril/Valsartan [Entresto 24 mg-26 mg Tablet] 1 tab PO [id number] 90 Days #90 tab 01/13/24 Furosemide [Lasix] 40 mg PO DAILY PRN 30 Days #30 tab 04/12/24 New Medications: Furosemide [Lasix] 40 mg PO DAILY PRN 30 Days #30 tab PRN Reason: Shortness Of Breath Physician Discharge Instructions: Home health referral faxed to: [facility] ([facility]) P:[phone] Diet: AHA Activity: Ad sujatha Followup: NONE,NONE [Primary Care Provider] - Cayden Skinner [ACTIVE - CAN ADMIT] -
--- NOTE | 2024-04-12 14:34 | P.DS ---
Admission Date: 04/07/24 Discharge Date: 04/12/24 Disposition: DC HOME/HOME HEALTH CARE Discharge Condition: FAIR Reason for Admission: Hematuria Brief History of Present Illness: 58 yrs old male with a past medical history of diabetes, congestive heart failure, lymphedema, sleep apnea, obesity, peripheral artery disease, status post right AKA was brought to ER with hematuria. Patient is a poor historian hence most of the history is obtained from the chart review and also talking to family members at the bedside. Family states that they have a new home health nurse . His home health came out today to change out catheter and when it was pulled out he began bleeding with Large amount of blood on scene. Patient denies any pain. No chest pain or shortness of breath. No fever or chills. No nausea vomiting diarrhea. Patient was assessed in the ER and had a Prajapati placed and urology was consulted. Patient is being admitted for further management Hospital Course: Pt is a 58 yo male with a past medical history of diabetes, congestive heart failure, lymphedema, sleep apnea, obesity, peripheral artery disease, status post right AKA who presented with hematuria. Patient is a poor historian hence most of the history was obtained from the chart review and family members at the bedside. Family member said that his new home health nurse changed out his prajapati catheter and when it was pulled out he began bleeding with Large amount of blood on the scene. Patient was assessed in the ER and had a Prajapati placed and urology was consulted. The hematuria was likely du eto prajapati trauma. We obtained urinalysis which showed evidence of UTI and Urine cx grew Pseudomonas and E. faecalis. We gave pt merrem and later discharged him with 8 more days of merrem to be completed at home. The hematuria resolved and we placed PICC line for iv abx. We continued home med for other chronic medical problems. Pt was in NAD prior to discharge. Vital Signs/Physical Exam: Temp Pulse Resp BP Pulse Ox 98.5 F 87 16 110/59 L 91 04/12/24 12:00 04/12/24 12:00 04/12/24 12:00 04/12/24 12:00 04/12/24 12:00 Laboratory Data at Discharge: WBC 7.70 thou/uL (4.3-10.9) 04/12/24 07:42 Hgb 9.0 g/dL (13.6-17.9) L 04/12/24 07:42 Hct 28.5 % (39.6-49.0) L 04/12/24 07:42 Plt Count 152 thou/uL (152-406) 04/12/24 07:42 Sodium 137 mEq/L (136-145) 04/12/24 07:42 Potassium 3.8 mEq/L (3.5-5.1) 04/12/24 07:42 BUN 18 mg/dL (7-18) 04/12/24 07:42 Creatinine 0.32 mg/dL (0.70-1.30) L 04/12/24 07:42 Glucose 127 mg/dL (74-106) H 04/12/24 07:42 Phosphorus 2.8 mg/dL (2.5-4.9) 04/12/24 07:42 Magnesium 2.1 mg/dL (1.6-2.4) 04/10/24 02:56 Magnesium Cancelled 04/10/24 02:56 Total Bilirubin 0.5 mg/dL (0.2-1.0) 04/10/24 02:56 AST < 10 U/L (15-37) L 04/10/24 02:56 ALT 18 U/L (16-61) 04/10/24 02:56 Alkaline Phosphatase 85 U/L (45-117) 04/10/24 02:56 Home Medications: Metformin HCl [Glucophage*] 1,000 mg PO BIDWM 03/24/23 Calcium Carbonate [Oyster Shell Calcium] 500 mg PO DAILY 01/12/24 Cholecalciferol (Vitamin D3) [Vitamin D3] 25 mcg PO BEDTIME 01/12/24 Docusate [Colace Cap*] 100 mg PO DAILY 01/12/24 Fluticasone [Flonase 50MCG Nasal [place]*] 2 sprays NS BEDTIME 01/12/24 Gabapentin 300 mg PO TID 01/12/24 Insulin Degludec [Tresiba Flextouch U-200] 9 unit SQ DAILY 01/12/24 Tamsulosin [Flomax*] 0.4 mg PO DAILY 01/12/24 Tramadol HCl [Ultram] 50 mg PO TIDP PRN 01/12/24 Furosemide 40 mg PO DAILY PRN 30 Days #30 tab 01/13/24 Pregabalin [Lyrica*] 75 mg PO DAILY 90 Days #90 cap 01/13/24 Sacubitril/Valsartan [Entresto 24 mg-26 mg Tablet] 1 tab PO [id number] 90 Days #90 tab 01/13/24 Furosemide [Lasix] 40 mg PO DAILY PRN 30 Days #30 tab 04/12/24 New Medications: Furosemide [Lasix] 40 mg PO DAILY PRN 30 Days #30 tab PRN Reason: Shortness Of Breath Physician Discharge Instructions: Home health referral faxed to: [facility] ([facility]) P:[phone] Diet: AHA Activity: Ad sujatha Followup: NONE,NONE [Primary Care Provider] - Cayden Skinner [ACTIVE - CAN ADMIT] -
[2024-04-12] MEDS: FUROSEMIDE 40 MG/4 ML VIAL IV ONE (16:02)
--- NOTE | 2024-04-12 16:51 | RAD REPORT ---
EXAM DESCRIPTION: RAD - Chest Single View - 04/12/2024 4:46 pm CLINICAL HISTORY: PICC line placement COMPARISON: Chest Single View dated 01/11/2024; Chest Single View dated 03/24/2023; Chest Single View dated 01/01/2022; CHEST SINGLE VIEW dated 06/05/2015 FINDINGS: Portable chest was obtained following placement of a left upper extremity PICC line. The c atheter tip projects over the SVC.
[2024-04-12] MEDS: Mupirocin NASAL 2 APPL/1 GM TUBE NAS SCH (21:41)
--- NOTE | 2024-04-13 12:08 | P.PN ---
Subjective Date of Service: 04/13/24 Chief Complaint: Hematuria Pt is resting comfortably in bed. Pt has significant hematuria in the prajapati bag this am. He has lymphedema on left leg and right AKA. Waiting for Urology eval. No other complaint. Review of Systems General: Unremarkable Eyes: Unremarkable ENT: Unremarkable Respiratory: Unremarkable Cardiovascular: Unremarkable Gastrointestinal: Unremarkable Genitourinary: Hematuria Musculoskeletal: Unremarkable Integumentary: Unremarkable Neurological: Unremarkable Lymphatics: Unremarkable Physical Examination - Vital Signs Temperature: 98 F Blood Pressure: 163/75 Pulse: 91 Respirations: 16 Pulse Ox (%): 90 - Physical Exam General: Alert, In no apparent distress, Oriented x3 HEENT: Atraumatic, Normocephalic, PERRLA Neck: Supple, 2+ carotid pulse no bruit Respiratory: Clear to auscultation bilaterally, Normal air movement Cardiovascular: No edema, Normal pulses, Regular rate/rhythm, Normal S1 S2 Capillary refill: <2 Seconds Gastrointestinal: Normal bowel sounds, Soft and benign, Non-distended Musculoskeletal: Swelling (left leg), Other (right AKA) Integumentary: No rashes, No breakdown Neurological: Normal gait, Normal speech, Normal strength at 5/5 x4 extr, Normal tone, Sensation intact Lymphatics: No axilla or inguinal lymphadenopathy Assessment And Plan - Plan Chronic indwelling Prajapati cath / Hematuria: Likely secondary to prajapati trauma. Hematuria worsened this am. Re-consulted Urology. Will continue IV fluids. Monitor H& H. History of ESBL / Leukocytosis: Continue iv merrem. Diabetes: Will continue accuchek, SSI and ADA diet Hyperlipidemia: Statin Hypertension: Will continue home med Anemia of chronic disease: Hgb is 8.8. Will monitor H/H. Obesity: Pt was advised to lose weight. Lymphedema: Continue compression stockings and wrapping. Continue supportive care Bilateral upper and lower extremity weakness: Imaging study with cord comp ression. paraplegic since October of this year. Unfortunately patient did have extensive workup performed. Prognosis For recovery is poor. Pt has Neurology consultation this week on outpatient. DVT ppx: SCD Code: full code Dispo: Pending hospital course. Will dc pt to Home with [facility], is primary caregiver is consider SNF
[2024-04-13] MEDS: TRAMADOL HCL 50 MG TAB PO PRN (13:34)
[2024-04-14] MEDS: LIDOCAINE JELLY 2% 5 ML SYRINGE TOP ONE ×2 (06:46→17:06)
[2024-04-14] MEDS: MORPHINE 4 MG/ML SYR ONE (06:49)
[2024-04-14] MEDS: MORPHINE 4 MG/ML SYR IV PRN (06:52)
[2024-04-14 09:08] LABS: Absolute Basophils 0.1 K/uL (0-0.5); Absolute Lymphocytes (CBC) 0.8 K/uL (0.7-4.9); Absolute Monocytes 0.4 K/uL (0.1-1.3); Absolute Neutrophil 11.2 K/uL (1.8-8.0); Basophils % 0.6 % (0-1.3); Eosinophils % 0.2 % (0-4.4); Hematocrit 27.9 % (39.6-49.0); Hemoglobin 8.4 g/dL (13.6-17.9); MCH 23.4 pg (27.0-35.0); MCHC 30.2 g/dL (32.0-36.0); MCV 77.6 fL (80-100); MPV 10.6 fL (7.6-11.3); Neutrophils % 90.2 % (41.7-73.7); Platelets 148 thou/uL (152-406); RBC Red Blood Cell Count 3.59 M/uL (4.33-5.43); Red Cell Distribution Width 15.7 % (12.1-15.2)
[2024-04-14 09:25] LABS: Anion Gap 7.3 mEq/L (5.0-15.0); Potassium 3.3 mEq/L (3.5-5.1)
[2024-04-14 09:41] LABS: Platelet Estimate DECR; White Blood Cell Scan OK (OK)
[2024-04-14 09:42] LABS: Blood Morphology Comment NOT SEEN (NOT SEEN)
--- NOTE | 2024-04-14 12:24 | P.PN ---
Subjective Date of Service: 04/14/24 Chief Complaint: Hematuria Pt is resting comfortably in bed. Pt has significant hematuria in the prajapati bag overnight due to blood clot in his bladder. Dr. Jansen extracted the blood clot. Pt is currently doing bladder irrigation. Urology will take him to the OR. He has lymphedema on left leg and right AKA. No other complaint. Review of Systems General: Unremarkable Eyes: Unremarkable ENT: Unremarkable Respiratory: Unremarkable Cardiovascular: Unremarkable Gastrointestinal: Unremarkable Genitourinary: Hematuria Musculoskeletal: Unremarkable Integumentary: Unremarkable Neurological: Unremarkable Lymphatics: Unremarkable Physical Examination - Vital Signs Temperature: 97.3 F Blood Pressure: 128/76 Pulse: 101 Respirations: 18 Pulse Ox (%): 91 - Physical Exam General: Alert, In no apparent distress, Oriented x3 HEENT: Atraumatic, Normocephalic, PERRLA Neck: Supple, 2+ carotid pulse no bruit, JVD not distended Respiratory: Clear to auscultation bilaterally, Normal air movement Cardiovascular: No edema, Normal pulses, Regular rate/rhythm Capillary refill: <2 Seconds Gastrointestinal: Normal bowel sounds, Soft and benign, Non-distended Musculoskeletal: No clubbing, No swelling, No contractures Integumentary: No rashes, No breakdown, No significant lesion Neurological: Normal gait, Normal speech, Normal strength at 5/5 x4 extr, Normal tone Lymphatics: No axilla or inguinal lymphadenopathy Urinary: Prajapati catheter, Other (hematuria) Assessment And Plan - Plan Chronic indwelling Prajapati cath / Hematuria: Likely secondary to prajapati trauma/ blood clot in the bladder. Hematuria worsened this am. Re-consulted Urology. Dr. Jansen extracted the bladder clot. Continue bladder irrigation. Will continue IV fluids. Monitor H& H. History of ESBL / Leukocytosis: Continue iv merrem. Diabetes: Will continue accuchek, SSI and ADA diet Hyperlipidemia: Statin Hypertension: Will continue home med Anemia of chronic disease: Hgb is 8.8. Will monitor H/H. Obesity: Pt was advised to lose weight. Lymphedema: Continue compression stockings and wrapping. Continue supportive care Bilateral upper and lower extremity weakness: Imaging study with cord compression. paraplegic since October of this year. Unfortunately patient did have extensive workup performed. Prognosis For recovery is poor. Pt has Neurology consultation this week on outpatient. DVT ppx: SCD Code: full code Dispo: Pending hospital course. Will dc pt to Home with [facility], is primary caregiver is consider SNF
[2024-04-14] MEDS ORDERED: ZOLPIDEM TARTRATE 10 MG TABLET PO PRN (12:57)
[2024-04-14] MEDS: NA CHLORIDE 0.9% 1,000 ML ONE (14:30)
[2024-04-14] MEDS ORDERED: MIDAZOLAM HCL 2 MG/2 ML INJ ONE (16:34)
[2024-04-14] MEDS ORDERED: FENTANYL CITR 100 MCG/2 ML ONE (16:34)
[2024-04-14] MEDS ORDERED: propofoL 200 MG/20 ML VIAL IV ONE (16:34)
[2024-04-14] MEDS ORDERED: LIDOCAINE 1% MPF 5 ML VIAL ONE (16:35)
[2024-04-14] MEDS ORDERED: ONDANSETRON 4 MG/2 ML VIAL ONE (16:35)
[2024-04-14] MEDS ORDERED: KETOROLAC 30 MG/ML INJ ONE (16:35)
--- NOTE | 2024-04-14 16:58 | P.CNS ---
Date of Consult: 04/14/24 Reason for Consult: recurrent clot retention Chief Complaint: Hematuria History of Present Illness: 58-year-old gentleman with DM 2, CHF, lymphedema, MIRELLA, morbid obesity, PAD s/p right AKA with dense phimosis prohibiting catheter placement in the setting of acute urinary retention on a prior admission, p bedside dorsal slit and meatal dilation with urethral Mendoza catheter placement, now chronically indwelling, but catheter malpositioned and balloon blown up in the prostatic fossa contributing to gross hematuria and pericatheter urethral bleeding, now with hypotension likely due to complicated UTI from translocation of colonizing bacteria associated with his chronic urethral catheterization. -Given the potential for nosocomial and resistant organism causing his infection, agree with aggressive antimicrobial therapy via meropenem or potentially Zosyn or cefepime as Pseudomonas is a common cause. -Follow-up urine cultures taken in the emergency department -As above, manually irrigate Mendoza if red gross hematuria develops, and if persistent, may resume CBI, but notify me. -Otherwise, patient should follow-up in my office for next catheter exchange and likely downsizing to an 18 Ukrainian coud in the next 4 to 6 weeks -Every 3 months, patient should be scheduled to see me for surveillance/examination of the foreskin and dorsal slit area given the known BXO changes to prevent missed progression to penile SCCa. Alternatively, patient may consider operative management including definitive circumcision, but this is likely a poor option since his wound healing may be impaired based on his diabetes and PAD, and also because of his morbid obesity and the retraction of the phallus associated, significant adhesions may develop during the healing process that could make the situation all the more complicated. -As a result, taking into consideration the above, I recommend patient care for his phallus by twice a day care -essentially he should resume applying triamcinolone nystatin or alternatively Lotrisone ointment to the foreskin and the head of the penis once a day, after cleansing with soap and water or gentle hydrogen peroxide, and the other time of the day, bacitracin/triple antibiotic ointment should be applied. Following the above bladder irrigation, the patient's urine was crystal clear; so CBI was not required, and the CBI port was capped. He was slated for discharge 04/12/2024, but before the discharge could occur, the patient explained that he was being manipulated for a bath when the catheter may have gotten pulled a bit and was not secured via cath secure, and he developed recurrent urethral bleeding and gross hematuria. This persisted throughout the day yesterday and, Thursday, and the nurses attempted to irrigate the Mendoza catheter ultimately without success early in the morning hours today. As a result, they reached out to me by phone prior to 6 AM to explain, and I recommended they remove the urethral Mendoza catheter, since they were unable to irrigate it properly, and give the patient an opportunity to void spontaneously since he was in distress. I asked him to prepare a new 22 Ukrainian three-way Mendoza catheter or a 20 Ukrainian two-way Mendoza catheter with a Uro-Jet and a catheter insertion kit for me to manage the patient if he were unable to void. He was not able to void, so I came in to assess. The patient was not in distress at this point complaining of pain and pressure in the rectal area due to bladder distention likely. There was no significant drainage from the catheter and there was significant blood and blood clot around the phallus and the scrotum. Clots were emanating from his meatus. As a result, I utilized hydrogen peroxide to try to dissolve away some of the blood and blood clots from his penile and meatal region, and then I prepped the phallus with Betadine in order to place a new Mendoza catheter. 22 Ukrainian three-way urethral Mendoza catheter placement, copious bladder irrigation, and resumption of CBI procedure note: After prepping his phallus and meatus with Betadine, I instilled a lidocaine Uro-Jet transurethrally for local anesthesia. I then passed the 22 [place] three-way Mendoza catheter into his bladder with drainage of a significant quantity of bloody urine. He had significant relief of the pain and pressure at that point, so I began to irrigate the catheter with sterile water initially, aspirating a large quantity of clot, and ultimately switching to normal saline. After irrigating with over 2.5 L of fluid, I was still encountering significant clot that would occasionally clog the catheter. On at least 2 occasions during the irrigation process, I had to remove the catheter and flush the clots out of the catheter before replacing the catheter in order to continue irrigating and removing more clot. Despite all of this, significant clot was clearly remnant in his bladder; so I got the catheter at least functionally draining and turned back on CBI at a slow to moderate drip. The drainage of urine and fluid was light pink. Recommendation: -Operative cystoscopy with clot evacuation and fulguration and other related procedures -Continue CBI uninterrupted pending operative management Addendum 3:30 PM: The patient was mostly comfortable without any significant signs of catheter obstruction or pain, and the urine was light pink on slow to moderate drip CBI. I thus counseled the patient on the need for operative evaluation and managemen t. Ultimately, consent was obtained where I explained the risk of bladder injury, complicating infection, or bleeding. Allergies No Known Drug Allergies Allergy (Verified 03/24/23 00:07) Unknown Home medications list reviewed: Yes Home Medications: Metformin HCl [Glucophage*] 1,000 mg PO BIDWM 03/24/23 Calcium Carbonate [Oyster Shell Calcium] 500 mg PO DAILY 01/12/24 Cholecalciferol (Vitamin D3) [Vitamin D3] 25 mcg PO BEDTIME 01/12/24 Docusate [Colace Cap*] 100 mg PO DAILY 01/12/24 Fluticasone [Flonase 50MCG Nasal [place]*] 2 sprays NS BEDTIME 01/12/24 Gabapentin 300 mg PO TID 01/12/24 Insulin Degludec [Tresiba Flextouch U-200] 9 unit SQ DAILY 01/12/24 Tamsulosin [Flomax*] 0.4 mg PO DAILY 01/12/24 Tramadol HCl [Ultram] 50 mg PO TIDP PRN 01/12/24 Furosemide 40 mg PO DAILY PRN 30 Days #30 tab 01/13/24 Pregabalin [Lyrica*] 75 mg PO DAILY 90 Days #90 cap 01/13/24 Sacubitril/Valsartan [Entresto 24 mg-26 mg Tablet] 1 tab PO [id number] 90 Days #90 tab 01/13/24 Furosemide [Lasix] 40 mg PO DAILY PRN 30 Days #30 tab 04/12/24 - Past Medical/Surgical History Diabetic: Yes -: IDDM -: Lymphedema -: Morbid Obesity -: Kidney stones -: severe neuropathy -: Rt AKA - Social History Smoking Status: Unknown if ever smoked Alcohol use: No CD- Drugs: No Caffeine use: No Physical Examination Temp Pulse Resp BP Pulse Ox 97.3 F 101 H 16 128/76 95 04/14/24 12:28 04/14/24 12:28 04/14/24 13:13 04/14/24 12:28 04/14/24 13:13 - Problems (1) Transient iatrogenic urethral bleeding Current Visit: Yes Status: Acute (2) Complicated UTI (urinary tract infection) Current Visit: Yes Status: Acute (3) Mendoza catheter problem Current Visit: Yes Status: Acute (4) BPH w urinary obs/LUTS Current Visit: Yes Status: Acute (5) Hematuria Current Visit: Yes Status: Acute (6) BXO (balanitis xerotica obliterans) Current Visit: No Status: Acute (7) Clot retention of urine Current Visit: Yes Status: Acute Conclusions/Impression: see A&P in HPI Critical Care: Yes Time Spent Managing Pts care (In Minutes): 120
--- NOTE | 2024-04-14 18:12 | P.OP ---
Date of Service: 04/14/24 Preoperative diagnosis: Gross hematuria Clot urinary retention History of voiding dysfunction/chronic urinary retention s/p dorsal slit for dense phimosis Postoperative diagnoses: Posterior urethral trauma Gross hematuria Clot urinary retention History of voiding dysfunction/chronic urinary retention s/p dorsal slit for dense phimosis Principal procedures: Urethral dilation using sounds Cystoscopy with elective evacuation of clots Complex Mendoza catheter placement over a wire Indication for procedure: 58-year-old gentleman with DM 2, CHF, lymphedema, MIRELLA, morbid obesity, PAD s/p right AKA with dense phimosis prohibiting catheter placement in the setting of acute urinary retention on a prior admission, p bedside dorsal slit and meatal dilation with urethral Mendoza catheter placement, now chronically indwelling, but catheter malpositioned and balloon blown up in the prostatic fossa contributing to gross hematuria and pericatheter urethral bleeding, admitted with hypotension likely due to complicated UTI from translocation of colonizing bacteria associated with his chronic urethral catheterization, with recurrent catheter trauma contributing to recurrent urethral bleeding and gross hematuria resulting in clot retention. Procedure note: The patient was consented in the preoperative holding area, and his signed the consent on his behalf because he cannot use his arms appropriately. A coagulation operator was used to assist in explaining the risks and side effects of the procedure. He was receiving meropenem IV antimicrobial therapy on the floor in a scheduled fashion. He was transferred to the operative suite where sedation was provided to keep him comfortable. His genitalia was cleansed and prepped using Hibiclens and draped in standard fashion. A lidocaine Uro-Jet was applied intraurethrally for local anesthesia. Urethral sounds were then used to dilate the meatus and fossa navicularis to 28 [place]. I then utilized a 26 [place] bipolar resectoscope and a visual obturator to traverse the urethra passed a bunch of clot within the urethra ultimately encountering the widely patent striated urethral sphincter and traversing the prostatic urethra where there was kissing lateral lobar hypertrophy before ultimately entering the bladder. Visualization was significantly limited due to the volume of clot within the bladder. As a result, I employed an Ilich evacuator, in fact to Ilich evacuator's, alternatingly used to irrigate out and remove a copious amount of clot, approximately 400 cc. Intermittent visualization was performed using the visual obturator until enough clot had been removed that I was able to survey the entirety of the bladder. No papillary mucosal lesions, foreign bodi es or stones were noted within the bladder. A couple of areas of mild mucosal erythema were noted likely from catheter trauma, but no source of bleeding was noted within the bladder. The ureteral orifices were orthotopic in location and effluxing clear yellow urine. The prostatic urethra was also surveyed, and no significant bleeding source was noted from the prostatic urethra. I then surveyed back into the number all bulbar urethra where there was clearly evidence of posterior urethral trauma there that was covered by a degree of formed clot. I attempted to dislodge this clot without any significant success before ultimately leaving it in place. I advanced the cystoscope back into the bladder and irrigated again to ensure all clot was removed before passing a Sampa guidewire via the scope into the bladder coiling it. I then remove the scope leaving the wire in place and utilized agent 24 [place] three-way Mendoza catheter made into a augustine tip using a hole punch, and I passed the catheter over the wire successfully into his bladder. 30 cc of sterile water was placed in the balloon. The catheter was allowed to drain in the urine/fluid was crystal-clear. I connected him to slow drip CBI and the patient was taken out of the lithotomy position. He was then transferred to a stretcher before being transferred to the recovery room in good condition. Complications: None Discharge disposition: Given the posterior urethral trauma the source of the bleeding, the 24 [place] catheter should remain in place while that has an opportunity to heal. Efforts should be made to avoid accidental pulling on the catheter, especially when moving the patient for cleansings/baths, to avoid pulling the catheter inadvertently into the bulbar urethra and causing further trauma which will result in further bleeding. Subsequent follow-up should be established in the urology clinic when it is time for urethral Mendoza catheter exchange, which can reasonably be done in 4 to 6 weeks per routine.
[2024-04-15] MEDS: POTASSIUM CL SA 10 MEQ TAB PO ONE (09:44)
--- NOTE | 2024-04-15 10:37 | P.PN ---
Subjective Date of Service: 04/15/24 Chief Complaint: Hematuria Subjective: Improving (has no 3 way drain. urine is dark but not red) Review of Systems 10-point ROS is otherwise unremarkable Physical Examination - Vital Signs Temperature: 99.0 F Blood Pressure: 119/70 Pulse: 96 Respirations: 16 Pulse Ox (%): 92 - Physical Exam General: Alert, In no apparent distress HEENT: Atraumatic, PERRLA, EOMI Neck: Supple, JVD not distended Respiratory: Clear to auscultation bilaterally, Normal air movement Cardiovascular: Regular rate/rhythm, Normal S1 S2 Gastrointestinal: Normal bowel sounds, No tenderness Musculoskeletal: No tenderness Integumentary: No rashes Neurological: Normal speech, Normal tone, Normal affect Lymphatics: No axilla or inguinal lymphadenopathy Assessment And Plan - Current Problems (Diagnosis) (1) Hematuria Current Visit: Yes Status: Acute Plan: clot removed by Dr. Skinner. Will discuss with him. Most likely the patient will be discharged with the prajapati Qualifiers: Hematuria type: gross Qualified Code(s): R31.0 - Gross hematuria (2) Complicated UTI (urinary tract infection) Current Visit: Yes Status: Acute Plan: entrococus. We can send him on po antibiotics. Keflex and nitrofurantin for synergy. He can have follow up with me and Dr. Skinner. (3) Diabetic neuropathy associated with type 2 diabetes mellitus Current Visit: No Status: Acute Plan: continue home meds Qualifiers: Diabetes mellitus complication detail: diabetic polyneuropathy Qualified Code(s): E11.42 - Type 2 diabetes mellitus with diabetic polyneuropathy (4) HTN (hypertension) Current Visit: No Status: Chronic Plan: stable continue home meds Qualifiers: Hypertension type: primary hypertension (5) CHF (congestive heart failure), NYHA class II Current Visit: No Status: Chronic Plan: patient is stable. no signs of fluid overload Qualifiers: Congestive heart failure type: diastolic Congestive heart failure chronicity: chronic Qualified Code(s): I50.32 - Chronic diastolic (congestive) heart failure (6) Lymphedema Current Visit: No Status: Chronic Plan: continue compression wraps (7) Obstructive sleep apnea (adult) (pediatric) Current Visit: Yes Status: Chronic Plan: was not able to tolerate the full sleep mask. Will try as an out patient with a prajapati Discharge Plan: Home Time Spent Managing PTS Care (In Minutes): 30
[2024-04-15] MEDS: FUROSEMIDE 40 MG/4 ML VIAL IV ONE (13:43)
[2024-04-16 07:32] LABS: Anion Gap 6.7 mEq/L (5.0-15.0); Potassium 3.7 mEq/L (3.5-5.1)
[2024-04-16 09:20] VITALS: O2SAT 95
--- NOTE | 2024-04-16 11:58 | P.DS ---
Admission Date: 04/07/24 Discharge Date: 04/16/24 Disposition: ROUTINE DISCHARGE Discharge Condition: FAIR Reason for Admission: Hematuria - Problems (1) Hematuria Current Visit: Yes Status: Acute Qualifiers: Hematuria type: gross Qualified Code(s): R31.0 - Gross hematuria (2) Complicated UTI (urinary tract infection) Current Visit: Yes Status: Acute (3) Diabetic neuropathy associated with type 2 diabetes mellitus Current Visit: No Status: Acute Qualifiers: Diabetes mellitus complication detail: diabetic polyneuropathy Qualified Code(s): E11.42 - Type 2 diabetes mellitus with diabetic polyneuropathy (4) HTN (hypertension) Current Visit: No Status: Chronic Qualifiers: Hypertension type: primary hypertension (5) CHF (congestive heart failure), NYHA class II Current Visit: No Status: Chronic Qualifiers: Congestive heart failure type: diastolic Congestive heart failure chronicity: chronic Qualified Code(s): I50.32 - Chronic diastolic (congestive) heart failure (6) Lymphedema Current Visit: No Status: Chronic (7) Obstructive sleep apnea (adult) (pediatric) Current Visit: Yes Status: Chronic Brief History of Present Illness: Patient was admitted to the hospitalist service for hematuria. Please see the hospitalist service Hospital Course: Patient had a cystoscope with Dr. Skinner. He had a abrasion on his ureter with clots. Which were removed. He will be going home with the prajapati for 4/6 weeks. He has entrococcus on his urine cultures. Has been in hospital with iv antibiotics. Will discharge him on Po keflex and nitrofurantin. both of which he is sensitive too. The patient has intermission coordinator difficulty with hemiplegia and use of his cpap(sleep apnea). Will start him on nasal pillows as an out patient. Will send him home with home health and PT. Will have him follow up with me and Dr. Skinner. Vital Signs/Physical Exam: Temp Pulse Resp BP Pulse Ox 98.3 F 90 16 110/66 95 04/16/24 08:00 04/16/24 08:00 04/16/24 08:00 04/16/24 08:00 04/16/24 08:00 General: Alert, In no apparent distress HEENT: Atraumatic, PERRLA, EOMI Neck: Supple, JVD not distended Respiratory: Clear to auscultation bilaterally, Normal air movement Cardiovascular: Regular rate/rhythm, Normal S1 S2 Gastrointestinal: Normal bowel sounds, No tenderness Musculoskeletal: No tenderness Integumentary: No rashes Neurological: Normal speech, Normal tone, Normal affect Lymphatics: No axilla or inguinal lymphadenopathy Laboratory Data at Discharge: WBC 12.50 thou/uL (4.3-10.9) H 04/14/24 08:49 Hgb 8.4 g/dL (13.6-17.9) L 04/14/24 08:49 Hct 27.9 % (39.6-49.0) L 04/14/24 08:49 Plt Count 148 thou/uL (152-406) L 04/14/24 08:49 Sodium 135 mEq/L (136-145) L 04/16/24 07:09 Potassium 3.7 mEq/L (3.5-5.1) 04/16/24 07:09 BUN 22 mg/dL (7-18) H 04/16/24 07:09 Creatinine 0.32 mg/dL (0.70-1.30) L 04/16/24 07:09 Glucose 163 mg/dL (74-106) H 04/16/24 07:09 Phosphorus 2.8 mg/dL (2.5-4.9) 04/12/24 07:42 Magnesium 2.1 mg/dL (1.6-2.4) 04/10/24 02:56 Magnesium Cancelled 04/10/24 02:56 Total Bilirubin 0.5 mg/dL (0.2-1.0) 04/10/24 02:56 AST < 10 U/L (15-37) L 04/10/24 02:56 ALT 18 U/L (16-61) 04/10/24 02:56 Alkaline Phosphatase 85 U/L (45-117) 04/10/24 02:56 Home Medications: Metformin HCl [Glucophage*] 1,000 mg PO BIDWM 03/24/23 Calcium Carbonate [Oyster Shell Calcium] 500 mg PO DAILY 01/12/24 Cholecalciferol (Vitamin D3) [Vitamin D3] 25 mcg PO BEDTIME 01/12/24 Docusate [Colace Cap*] 100 mg PO DAILY 01/12/24 Fluticasone [Flonase 50MCG Nasal Snook*] 2 sprays NS BEDTIME 01/12/24 Gabapentin 300 mg PO TID 01/12/24 Insulin Degludec [Tresiba Flextouch U-200] 9 unit SQ DAILY 01/12/24 Tamsulosin [Flomax*] 0.4 mg PO DAILY 01/12/24 Tramadol HCl [Ultram] 50 mg PO TIDP PRN 01/12/24 Furosemide 40 mg PO DAILY PRN 30 Days #30 tab 01/13/24 Pregabalin [Lyrica*] 75 mg PO DAILY 90 Days #90 cap 01/13/24 Sacubitril/Valsartan [Entresto 24 mg-26 mg Tablet] 1 tab PO [id number] 90 Days #90 tab 01/13/24 Furosemide [Lasix] 40 mg PO DAILY PRN 30 Days #30 tab 04/12/24 Cephalexin [Keflex] 500 mg PO Q8HR #15 cap 04/16/24 Nitrofurantoin Macrocrystal [Macrodantin] 100 mg PO TID #15 tab 04/16/24 New Medications: Cephalexin [Keflex] 500 mg PO Q8HR #15 cap Furosemide [Lasix] 40 mg PO DAILY PRN 30 Days #30 tab PRN Reason: Shortness Of Breath Nitrofurantoin Macrocrystal [Macrodantin] 100 mg PO TID #15 tab Physician Discharge Instructions: Yuliana en el hogar arreglada con: [facility] ([facility]) [facility] domic[facility] arreglado con: [facility] Diet: ADA Activity: Ad sujatha Followup: Cayden Skinner [ACTIVE - CAN ADMIT] - 1-2 Weeks Zhou Drake MD [ACTIVE - CAN ADMIT] - 1 Week Physician Review: Patient Assessed, Agree with Above Assessment and Plan Time spent managing pt's care (in minutes): 40
[2024-04-16 12:42] VITALS: BP 109/63; TEMP 98.6
[2024-04-18 11:27] LABS: Anti-Nuclear Antibody Screen Negative (Negative)
== END 2024-04-16 13:56 | disposition home or self-care (01) | DRG 671 ==
LOC: ER 17:38 → ERHOLD 20:25 → 2ND 22:14 → 3RD-ICU 04-07 15:14 → OBSVTOIN 04-07 16:26 → 2ND 04-09 20:53
PROVIDERS: ADMIT Internal Medicine; ATTEND Internal Medicine
PROC: 0T9B70Z Drainage of Bladder with Drainage Device, Via Natural or Artificial Opening (ICD-10-PCS; 2024-04-07)
PROC: 02HV33Z Insertion of Infusion Device into Superior Vena Cava, Percutaneous Approach (ICD-10-PCS; 2024-04-12)
PROC: 5A09457 Assistance with Respiratory Ventilation, 24-96 Consecutive Hours, Continuous Positive Airway Pressure (ICD-10-PCS; 2024-04-14)
PROC: 0TCD8ZZ Extirpation of Matter from Urethra, Via Natural or Artificial Opening Endoscopic (ICD-10-PCS; 2024-04-14)
PROC: 0T9D8ZZ Drainage of Urethra, Via Natural or Artificial Opening Endoscopic (ICD-10-PCS; principal; 2024-04-14 12:00)
DX: T83.83XA Hemorrhage due to genitourinary prosthetic devices, implants and grafts, initial encounter (principal); D62 Acute posthemorrhagic anemia; D69.3 Immune thrombocytopenic purpura; E87.1 Hypo-osmolality and hyponatremia; Z68.41 Body mass index [BMI] 40.0-44.9, adult; N13.8 Other obstructive and reflux uropathy; N39.0 Urinary tract infection, site not specified; G82.20 Paraplegia, unspecified; I50.32 Chronic diastolic (congestive) heart failure; T83.511A Infection and inflammatory reaction due to indwelling urethral catheter, initial encounter; I11.0 Hypertensive heart disease with heart failure; G47.33 Obstructive sleep apnea (adult) (pediatric); N40.1 Benign prostatic hyperplasia with lower urinary tract symptoms; E66.01 Morbid (severe) obesity due to excess calories; E86.0 Dehydration; N48.9 Disorder of penis, unspecified; E11.51 Type 2 diabetes mellitus with diabetic peripheral angiopathy without gangrene; E11.40 Type 2 diabetes mellitus with diabetic neuropathy, unspecified; E11.42 Type 2 diabetes mellitus with diabetic polyneuropathy; I95.9 Hypotension, unspecified; N48.0 Leukoplakia of penis; E78.5 Hyperlipidemia, unspecified; I89.0 Lymphedema, not elsewhere classified; D63.8 Anemia in other chronic diseases classified elsewhere; S14.109A Unspecified injury at unspecified level of cervical spinal cord, initial encounter; B95.2 Enterococcus as the cause of diseases classified elsewhere; B96.5 Pseudomonas (aeruginosa) (mallei) (pseudomallei) as the cause of diseases classified elsewhere; R31.0 Gross hematuria; Z79.4 Long term (current) use of insulin; Z79.84 Long term (current) use of oral hypoglycemic drugs; Z89.611 Acquired absence of right leg above knee; Z79.899 Other long term (current) drug therapy; Y84.6 Urinary catheterization as the cause of abnormal reaction of the patient, or of later complication, without mention of misadventure at the time of the procedure
CPT/HCPCS: 31720; 36415; 70450; 71045; 71250; 72125; 76770; 80048; 80053; 81001; 82607; 82947; 83540; 83605; 83735; 84100; 84439; 84443; 85014; 85018; 85025; 85044; 86038; 86140; 86200; 86430; 86850; 86900; 86901; 87077; 87086; 87088; 87186; 94640; 94660; 94668; 99285; G0378; J0696; J1940; J2001; J2185; J2250; J2405; J2704; J3010; J7030; J7050; J7608; J7613; P9047

== ENCOUNTER 2024-06-07 22:58 | Emergency (ER) | payer OTHER ==
--- OUTSIDE RECORDS SUMMARY | 2024-06-07 23:11 | XMS REPORT | Continuity of Care Document ---
Author Name Unknown Address [address] [facility] [address] [place] [address] [facility] thconnect Address [address] [facility] [place] [address] Care Team Providers Care Drums Teacher Name Role Phone RIGOBRANDIN Primary Care Physician Unavailab ADA Mckeon Attending Clinician Unavail able ADA ROBBINS Attending Clinician Unavail able Tania Zimmerman Yijia Attending Clinician Unavailab May Carrasquillo Anavella Attending Cli carlo Unavailable JEANNIE MILLER Attending Clinician Unavaila JULISA Maguire Attending Clinician Unavailabl e Doctor Unassigned, Verdi Attending Clinician U Veronica Harris PTA Attending Clinician Unavail able Julisa Duran MD Attending Clinician [phone] Logan Lance MD Attending Clinician [phone] Niyah Mckeon PT Attending Clinician Un available LOGAN LANCE Attending Clinician KATE Sandoval Attending Clinician Unavailable Nicolasa Castillo PT Attending Clinician Unavailab Tania Murcia Yijia Admitting Clinician Unavailab evelina Sykes, Marianne, Reev Admitting Clinician U navailerika Payers Payer Name Policy Type Policy Number Effective Date Expirati on Date Source MEDICARE PART A \T\ B [id number] 2017 00:00:00 [facility] [id number] Problems Condition Name Condition Details Condition Category Status Onset Date Resolution Date Last Treatment Date Treating Clinician Comments Source Chronic edema Chronic edema Disease Active 2019-10 00:00: 00 [facility] Hx of AKA (above knee amputation ), 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 ), right Disease Active 2019-10 00:00: 00 [facility] Balanitis Balanitis Problem Comm on [facility] [id number] 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 [facility] [id number] Acquired phimosis of penis Problem [facility] Leukoplaki a of penis BXO (balanitis xerotica obliterans ) Problem [facility] Allergies, Adverse Reactions, Alerts Allergy Name Allergy Type Status Severity Reaction(s) Onset Date Inactive Date Treating Clinician Comments Source NO KNOWN ALLERGIE S Drug Class Active [facility] Social History Social Habit Start Date Stop Date Quantity Comments Source History of Tobacco Use [facility] Sex Assigned At [facility] Alcohol intake 2020-06-25 00:00:00 2020-06-25 00:00:00 Ex-drinker (finding) [facility] Tobacco use and exposure 2019-11-25 00:00:00 2019-11-25 00:00:00 Smokeless tobacco non-user [facility] Smoking Status Start Date Stop Date Source Unknown if ever smoked [facility] Former Smoker 2024-05-11 00:00:00 2024-05-11 00:00:00 [facility] Never smoked tobacco [facility] Medications Ordered Medication Name Filled Medication Name Start Date Stop Date Current Medication? Ordering Clinician Indication Dosage Frequency Signature (SIG) Comments Components Source GLIPIZIDE 10 mg tablet 2020-10 0-26 00:00: 00 Yes [id number] TAKE ONE TABLET BY MOUTH DAILY [facility] GLIPIZIDE 10 mg tablet 2020-10 0-19 00:00: 00 Yes [id number] TAKE ONE TABLET BY MOUTH DAILY [facility] PIOGLITAZON E 30 mg tablet 07-15 00:00: 00 Yes TAKE ONE TABLET BY MOUTH DAILY [facility] TRIAMTERENE -HYDROCHLOR OTHIAZIDE 37.5-25 mg per capsule 07-15 00:00: 00 Yes [id number] TAKE ONE CAPSULE BY MOUTH EVERY MORNING [facility] BUMETANIDE 1 mg tablet 07-15 00:00: 00 Yes [id number] TAKE ONE TABLET BY MOUTH DAILY [facility] metFORMIN 500 mg tablet 06-25 00:00: 00 Yes [id number] TAKE ONE TABLET BY MOUTH TWICE A DAY WITH MEALS [facility] ATORVASTATI N 40 mg tablet 06-13 00:00: 00 Yes TAKE ONE TABLET BY MOUTH AT BEDTIME [facility] GLIPIZIDE 10 mg tablet 06-10 00:00: 00 08-13 00:00 :00 No [id number] TAKE ONE TABLET BY MOUTH DAILY [facility] BUMETANIDE 1 mg tablet 05-21 00:00: 00 Yes [id number] TAKE ONE TABLET BY MOUTH DAILY [facility] TRIAMTERENE -HYDROCHLOR OTHIAZIDE 37.5-25 mg per capsule 05-21 00:00: 00 Yes [id number] TAKE ONE CAPSULE BY MOUTH EVERY MORNING [facility] KCL 10 mEq tablet 05-15 00:00: 00 Yes [id number] TAKE ONE TABLET BY MOUTH DAILY [facility] metFORMIN 500 mg tablet 04-15 00:00: 00 06-25 00:00 :00 No [id number] TAKE ONE TABLET BY MOUTH TWICE A DAY WITH MEALS [facility] PIOGLITAZON E 30 mg tablet 16 00:00: 00 Yes TAKE ONE TABLET BY MOUTH DAILY [facility] exenatide microsphere s (BYDUREON) 2 mg/0.65 mL injection 4- 00:00: 00 Yes [id number] 2mg inject 0.65 mL under the skin weekly. [facility] traMADoL 50 mg tablet 01-11 00:00: 00 Yes [id number] 50mg Take 1 tablet by mouth every 6 (six) hours as needed for Pain (scale 4-6). Indication s: acute pain [facility] exenatide microsphere s 2 mg injection 01-11 00:00: 00 Yes [id number] 2mg inject 2 mg under the skin every 7 (seven) days. [facility] traMADol 50 mg tablet 12-21 00:00: 00 Yes [id number] 50mg Take 1 tablet by mouth every 6 (six) hours as needed (pain). [facility] exenatide microsphere s 2 mg injection 12-21 00:00: 00 Yes [id number] 2mg inject 2 mg under the skin every 7 (seven) days. [facility] metFORMIN 500 mg tablet 11-25 20:46: 55 Yes 500mg Take 500 mg by mouth 2 (two) times daily with meals. [facility] atorvastati n 40 mg tablet 11-25 20:46: 55 Yes 40mg Take 40 mg by mouth at bedtime. [facility] pioglitazon e 30 mg tablet 11-25 20:46: 55 Yes 30mg Take 30 mg by mouth daily. [facility] glipiZIDE 10 mg tablet 11-25 20:46: 55 Yes 10mg Take 10 mg by mouth daily. [facility] amoxicillin -clavulanat e (AUGMENTIN) 875-125 mg per tablet 11-25 00:00: 00 12-21 00:00 :00 No [id number] 1{tbl} Take 1 tablet by mouth 2 (two) times daily. [facility] sulfamethox azole-trime thoprim 800-160 mg per tablet 11-25 00:00: 00 12-21 00:00 :00 No [id number] 1{tbl} Take 1 tablet by mouth 2 (two) times daily. [facility] traMADol 50 mg tablet 11-25 00:00: 00 12-21 00:00 :00 No [id number] 50mg Take 1 tablet by mouth every 6 (six) hours as needed (pain). [facility] Furosemide 40 MG Furosemide 40 MG No 1{table t} QD Furosemide 40 MG metFORMIN HCl 1000 MG metFORMIN HCl 1000 MG No 1{table t_with_ a_meal} QD metFORMIN HCl 1000 MG Fluticasone Propionate HFA Fluticasone Propionate HFA No 1{capsu le} QD Fluticason e Propionate HFA traMADol HCl 50 MG traMADol HCl 50 MG No 1{table t_as_ne eded} QD traMADol HCl 50 MG No known medications No Un senthil [facility] Tamsulosin HCl 0.4 MG Tamsulosin HCl 0.4 MG No 1{capsu le} QD Tamsulosin HCl 0.4 MG Gabapentin 300 MG Gabapentin 300 MG No 1{capsu le} QD Gabapentin 300 MG Vital Signs Vital Name Observation Time Observation Value Comments S ource height 2024-02-17 13:30:00 72 [in_i] Commo n [facility] weight 2024-02-17 13:30:00 340.0 [lb_av] Co mmon [facility] temperature 2024-02-17 13:30:00 98.5 [degF] Com mon [facility] bmi 2024-02-17 13:30:00 46.11 kg/m2 Comm on [facility] oximetry 2024-02-17 13:30:00 95 % Commo n [facility] respiratory rate 2024-02-17 13:30:00 16 /min [facility] blood pressure systolic 2024-02-17 13:30:00 173 mm[Hg] [facility] blood pressure diastolic 2024-02-17 13:30:00 83 mm[Hg] [facility] Systolic blood pressure 2019-12-21 17:49:00 110 mm[Hg] [facility] Diastolic blood pressure 2019-12-21 17:49:00 41 mm[Hg] [facility] Heart rate 2019-12-21 17:49:00 79 /[facility] 2019-12-21 17:49:00 36.78 Yesenia [facility] Respiratory rate 2019-12-21 17:49:00 18 /min [facility] Procedures Procedure Date / Time Performed Performing Clinician Source REFERRAL- REQUEST/RESPONSE 2023-04-20 05:01:00 Doctor Unassigned, Verdi [facility] ASSIGNMENT OF BENEFITS 2022-03-26 12:52:53 Docto r Unassigned, Verdi [facility] REFERRAL- REQUEST/RESPONSE 2022-03-12 05:01:00 Doctor Unassigned, Verdi [facility] PATIENT QUESTIONNAIRE 2019-11-22 06:01:00 Doctor Unassigned, Verdi [facility] REFERRAL- REQUEST/RESPONSE 2019-11-11 06:01:00 Doctor Unassigned, Verdi [facility] Encounters Start Date/Time End Date/Time Encounter Type Admission Type Attending Clinicians Care Facility Care Department Encounter ID Source 2024-04-13 11:58:00 Outpatient [facility] [id number] [facility] 2024-02-17 12:35:00 Outpatient [facility] [id number] [facility] 2021-08-23 14:59:58 Emergency [facility] [id number] [facility] 2019-11-28 08:29:26 Outpatient [facility] [id number] [facility] 2024-05-11 00:00:00 2024-05-11 00:00:00 ([place]) Nurse Visit [facility] ST[facility] [id number] [facility] 2024-04-08 11:00:00 2024-04-08 11:00:00 Outpatient ADA AGUIRRE HOWARD [facility] [id number] [facility] 2024-04-06 00:00:00 2024-04-06 00:00:00 (TEL) STLMLC STLC [id number] [facility] 2024-03-07 00:00:00 2024-03-07 00:00:00 ([place]) Nurse Visit STLMLC STLMLC [id number] [facility] 2024-02-29 00:00:00 2024-02-29 00:00:00 (TEL) STLMLC STLMLC [id number] [facility] 2024-02-23 00:00:00 2024-02-23 00:00:00 ([place]) Nurse Visit STLMLC STLMLC [id number] [facility] 2024-02-17 00:00:00 2024-02-17 00:00:00 OFFICE VISIT ESTAB PT LEVEL 3 STLMLC STLMLC [id number] [facility] 2024-01-13 18:01:00 2024-01-30 11:57:00 Inpatient 3 Tania Zimmerman ENCPL SCN [id number] [facility] 2023-11-07 22:28:00 2023-11-23 15:20:00 Inpatient [address] [facility] May escoto ENCPL EULALIO [id number] [facility] 2023-06-05 08:45:00 2023-06-05 08:45:00 Outpatient R JULISA DURAN [facility] [id number] [facility] 2023-04-20 00:00:00 2023-04-20 00:00:00 Orders Only Doctor Unassigned, Verdi [facility] .840.114 350.1.13.10 4.2.7.2.686 [id number] [id number] [facility] 2023-04-14 00:00:00 2023-04-14 00:00:00 Telephone Veronica Truong [facility] SCOTTY MCDON[facility]DESSANDIE [facility] 1..840.114 350.1.13.10 4.2.7.2.686 [id number] [facility] 2022-08-21 08:00:00 2022-08-21 09:19:07 Outpatient R JULISA DURAN [facility] [id number] [facility] 2022-08-21 08:00:00 2022-08-21 09:19:07 Ancillary Visit Veronica Truong Craig L [facility] 1.2.840.114 350.1.13.10 4.2.7.2.686 [id number] 179 [id number] [facility] 2022-08-14 08:00:00 2022-08-14 09:36:02 Ancillary Visit Veronica Truong Craig L [facility] 1.2.840.114 350.1.13.10 4.2.7.2.686 [id number] 179 [id number] [facility] 2022-08-07 08:00:00 2022-08-07 09:00:00 Ancillary Visit Veronica Truong Craig L [facility] 1.2.840.114 350.1.13.10 4.2.7.2.686 [id number] 179 [id number] [facility] 2022-07-17 08:00:00 2022-07-17 10:33:07 Ancillary Visit Veronica Truong Craig L [facility] 1.2.840.114 350.1.13.10 4.2.7.2.686 [id number] [facility] 2022-07-11 08:00:00 2022-07-11 09:09:53 Ancillary Visit Veronica Truong Craig L [facility] 1.2.840.114 350.1.13.10 4.2.7.2.686 [id number] 179 [id number] [facility] 2022-07-09 08:00:00 2022-07-09 09:22:42 Ancillary Visit Veronica Truong Craig L [facility] 1.2.840.114 350.1.13.10 4.2.7.2.686 [id number] 179 [id number] [facility] 2022-07-03 08:00:00 2022-07-03 09:28:51 Ancillary Visit Veronica Truong Craig L [facility] 1.2.840.114 350.1.13.10 4.2.7.2.686 [id number] [facility] 2022-07-01 08:00:00 2022-07-01 09:42:36 Outpatient R JULISA DURAN [facility] [id number] [facility] 2022-07-01 08:00:00 2022-07-01 09:42:36 Ancillary Visit Veronica Truong Craig L [facility] 1.2.840.114 350.1.13.10 4.2.7.2.686 [id number] [facility] 2022-06-25 08:00:00 2022-06-25 10:05:28 Ancillary Visit Veronica Truong Craig L [facility] 1.2.840.114 350.1.13.10 4.2.7.2.686 [id number] 179 [id number] [facility] 2022-06-20 08:00:00 2022-06-20 09:40:30 Ancillary Visit Veronica Truong Craig L [facility] 1.2.840.114 350.1.13.10 4.2.7.2.686 [id number] [facility] 2022-06-18 08:00:00 2022-06-18 09:36:15 Ancillary Visit Veronica Truong Craig L [facility] 1.2.840.114 350.1.13.10 4.2.7.2.686 [id number] 179 [id number] [facility] 2022-06-13 08:00:00 2022-06-13 08:45:00 Ancillary Visit Veronica Truong [facility] 1.2.840.114 350.1.13.10 4.2.7.2.686 [id number] 179 [id number] [facility] 2022-06-10 08:45:00 2022-06-10 09:30:00 Ancillary Visit Veronica Truong Craig L [facility] 1.2.840.114 350.1.13.10 4.2.7.2.686 [id number] [facility] 2022-06-06 08:00:00 2022-06-06 10:23:06 Ancillary Visit Veronica Truong Craig L [facility] 1.2.840.114 350.1.13.10 4.2.7.2.686 [id number] [facility] 2022-06-04 08:00:00 2022-06-04 09:29:06 Ancillary Visit Veronica Truong Craig L [facility] 1.2.840.114 350.1.13.10 4.2.7.2.686 [id number] [facility] 2022-05-30 08:00:00 2022-05-30 10:18:46 Ancillary Visit Veronica Truong Craig L [facility] 1.2.840.114 350.1.13.10 4.2.7.2.686 [id number] [facility] 2022-05-28 08:00:00 2022-05-28 10:30:25 Earl DURAN JULISA [facility] [id number] [facility] 2022-05-28 08:00:00 2022-05-28 08:45:00 Ancillary Visit Veronica Truong [facility] 1.2.840.114 350.1.13.10 4.2.7.2.686 [id number] 179 [id number] [facility] 2022-05-23 08:00:00 2022-05-23 09:06:40 Ancillary Visit Veronica TruongonaldJulisa [facility] 1.2.840.114 350.1.13.10 4.2.7.2.686 [id number] [facility] 2022-05-09 09:30:00 2022-05-09 10:33:51 Ancillary Visit Veronica TruongonaldKhadijahig Manuel [facility] 1.2.840.114 350.1.13.10 4.2.7.2.686 [id number] [facility] 2022-05-07 10:15:00 2022-05-07 11:02:32 Ancillary Visit Veronica Truong Craig L [facility] 1.2.840.114 350.1.13.10 4.2.7.2.686 [id number] [facility] 2022-05-05 00:00:00 2022-05-05 00:00:00 Logan Bergman [facility] 1.2.840.114 350.1.13.10 4.2.7.2.686 [id number] [facility] 2022-05-05 00:00:00 2022-05-05 00:00:00 Logan Bergman [facility] 1.2.840.114 350.1.13.10 4.2.7.2.686 [id number] [facility] 2022-04-30 08:45:00 2022-04-30 08:45:00 Outpatient R JULISA DURAN [facility] [id number] [facility] 2022-04-30 00:00:00 2022-04-30 00:00:00 Case Management Veronica Truong [facility] 1.2.840.114 350.1.13.10 4.2.7.2.686 [id number] 179 [id number] [facility] 2022-04-24 14:30:00 2022-04-24 15:42:45 Ancillary Visit Veronica Truong Craig L [facility] 1.2.840.114 350.1.13.10 4.2.7.2.686 [id number] [facility] 2022-04-17 08:00:00 2022-04-17 09:00:00 Ancillary Visit Veronica Truong Craig L [facility] 1.2.840.114 350.1.13.10 4.2.7.2.686 [id number] [facility] 2022-04-11 08:00:00 2022-04-11 09:00:00 Ancillary Visit Veronica Truong Craig L [facility] 1.2.840.114 350.1.13.10 4.2.7.2.686 [id number] [facility] 2022-04-09 08:00:00 2022-04-09 09:00:00 Ancillary Visit Veronica Truong Craig L [facility] 1.2.840.114 350.1.13.10 4.2.7.2.686 [id number] [facility] 2022-04-04 08:00:00 2022-04-04 09:00:00 Ancillary Visit Veronica Truong Craig L [facility] 1.2.840.114 350.1.13.10 4.2.7.2.686 [id number] [facility] 2022-04-01 08:00:00 2022-04-01 09:00:00 Ancillary Visit Alexi Julisa Gomez [facility] 1.2.840.114 350.1.13.10 4.2.7.2.686 [id number] [facility] 2022-03-26 08:00:00 2022-03-26 10:37:03 Outpatient R JULISA DURAN [facility] [id number] [facility] 2022-03-26 08:00:00 2022-03-26 10:37:03 Ancillary Visit Niyah Mckeon Craig [facility] 1.2.840.114 350.1.13.10 4.2.7.2.686 [id number] 179 [id number] [facility] 2022-03-26 00:00:00 2022-03-26 00:00:00 Orders Only Doctor Unassigned, Verdi [facility] 1.2840.114 350.1.13.10 4.2.7.2.686 [id number] [facility] 2022-03-12 00:00:00 2022-03-12 00:00:00 Orders Only Doctor Unassigned, Verdi [facility] 1.2840.114 350.1.13.10 4.2.7.2.686 [id number] [facility] 2022-02-10 00:00:00 2022-02-10 00:00:00 Logan [facility] 1.2.840.114 350.1.13.10 4.2.7.2.686 [id number] [facility] 2021-11-29 00:00:00 2021-11-29 00:00:00 Logan Bergman [facility] 1.2.840.114 350.1.13.10 4.2.7.2.686 [id number] [facility] 2021-09-12 00:00:00 2021-09-12 00:00:00 Logan Bergman [facility] 1.2.840.114 350.1.13.10 4.2.7.2.686 [id number] 044 [id number] [facility] 2021-08-19 00:00:00 2021-08-19 00:00:00 Logan Bergman yoselin [facility] 1.2.840.114 350.1.13.10 4.2.7.2.686 [id number] [facility] 2021-08-13 00:00:00 2021-08-13 00:00:00 Logan Bergman [facility] 1.2.840.114 350.1.13.10 4.2.7.2.686 [id number] [facility] 2021-07-13 00:00:00 2021-07-13 00:00:00 Logan Bergman yoselin [facility] 1.2.840.114 350.1.13.10 4.2.7.2.686 [id number] [facility] 2021-06-24 00:00:00 2021-06-24 00:00:00 Logan Bergman [facility] Julissa yadav [facility] 1.2.840.114 350.1.13.10 4.2.7.2.686 [id number] [facility] 2020-09-05 10:15:00 2020-09-05 10:15:00 Outpatient LOGAN HESTER [facility] [id number] [facility] 2020-06-25 11:40:00 2020-06-25 11:40:00 Outpatient KATE GOMEZ [facility] [id number] [facility] 2020-06-06 15:45:00 2020-06-06 15:45:00 Outpatient LOGAN HESTER [facility] [id number] [facility] 2020-05-09 16:15:00 2020-05-09 16:15:00 Outpatient LOGAN HESTER [facility] [id number] [facility] 2020-03-20 09:15:00 2020-03-20 09:15:00 Outpatient LOGAN HESTER [facility] [id number] [facility] 2020-01-25 11:00:00 2020-01-25 11:00:00 Outpatient JULISA AREVALO [facility] [id number] [facility] 2019-12-29 09:20:00 2019-12-29 09:20:00 Outpatient JULISA AREVALO [facility] [id number] [facility] 2019-12-21 11:42:25 2019-12-21 11:57:25 [facility] 1.2.840.114 350.1.13.10 4.2.7.2.686 [id number] [facility] 2019-12-21 11:30:00 2019-12-21 11:30:00 Outpatient LOGAN HESTER [facility] [id number] [facility] 2019-12-20 09:00:00 2019-12-20 09:00:00 Outpatient R [facility] [id number] [facility] 2019-12-16 10:07:00 2019-12-16 11:07:00 Ancillary Visit Veronica Truong [facility] 1.2.840.114 350.1.13.10 4.2.7.2.686 [id number] [facility] 2019-12-14 09:52:14 2019-12-14 10:52:14 Ancillary Visit Veronica Truong Craig L [facility] 1.2.840.114 350.1.13.10 4.2.7.2.686 [id number] [facility] 2019-12-09 08:52:58 2019-12-09 10:16:26 Ancillary Visit Veronica Truong Craig L [facility] 1.2.840.114 350.1.13.10 4.2.7.2.686 [id number] [facility] 2019-12-07 08:58:57 2019-12-07 09:58:57 Ancillary Visit Veronica Truong Craig L [facility] 1.2.840.114 350.1.13.10 4.2.7.2.686 [id number] [facility] 2019-12-02 08:47:35 2019-12-02 09:47:35 Ancillary Visit Veronica Truong Craig L [facility] 1.2.840.114 350.1.13.10 4.2.7.2.686 [id number] [facility] 2019-11-18 09:11:00 2019-11-30 12:53:31 Ancillary Visit Nicolasa Castillo Craig L [facility] 1.2.840.114 350.1.13.10 4.2.7.2.686 [id number] [facility] 2019-11-30 08:42:50 2019-11-30 09:42:50 Ancillary Visit Veronica Truong Julisa Jackson [facility] 1.2.840.114 350.1.13.10 4.2.7.2.686 [id number] [facility] 2019-11-24 08:48:05 2019-11-24 15:06:52 Ancillary Visit Veronica TruongJulisa Manuel [facility] 1.2.840.114 350.1.13.10 4.2.7.2.686 [id number] [facility] 2019-11-22 08:37:05 2019-11-22 11:36:52 Ancillary Visit Alexi Veronica Julisa Guzmán [facility] 1.2.840.114 350.1.13.10 4.2.7.2.686 [id number] [facility] 2019-11-22 00:00:00 2019-11-22 00:00:00 Orders Only Doctor Unassigned, Verdi [facility] 1.2.840.114 350.1.13.10 4.2.7.2.686 [id number] [facility] 2019-11-11 00:00:00 2019-11-11 00:00:00 Orders Only Doctor Unassigned, Verdi [facility] 1.2.840.114 350.1.13.10 4.2.7.2.686 [id number] [facility] 2019-10-30 03:07:00 2019-10-30 15:15:00 Inpatient E [facility] [id number] [facility] Results Test Description Test Time Test Comments Results Result Co mments Source [facility] (DIFF/PLT)2024-01-29 11:38:00* Test Item Value Reference Range Interpretation Comme nts WHITE BLOOD CELL COUNT (test code = 00309615) 5.8 Thousand/uL 3.8-10.8 N RED BLOOD CELL COUNT (test code = 15204852) 4.66 Million/uL 4.20-5.80 N HEMOGLOBIN (test code = 74750832) 11.5 g/dL 13.2-17.1 L HEMATOCRIT (test code = 67418330) 38.1 % 38.5-50.0 L MCV (test code = 32538801) 81.8 fL 80.0-100.0 N MCH (test code = 73096507) 24.7 pg 27.0-33.0 L MCHC (test code = 48654019) 30.2 g/dL 32.0-36.0 L RDW (test code = 69838081) 15.4 % 11.0-15.0 H PLATELET COUNT (test code = 79567152) 141 Thousand/uL 140-400 N MPV (test code = 40639609) fL 7.5-12.5 N Due to platelet or RBC variability in size or shapethe result cannot be reported accurately. ABSOLUTE NEUTROPHILS (test code = 62160749) 3695 cells/uL 2366-6094 N ABSOLUTE LYMPHOCYTES (test code = 69257262) 1630 cells/uL 850-3900 N ABSOLUTE MONOCYTES (test code = 05488144) 220 cells/uL 200-950 N ABSOLUTE EOSINOPHILS (test code = 29432542) 226 cells/uL 15-500 N ABSOLUTE BASOPHILS (test code = 72569259) 29 cells/uL 0-200 N NEUTROPHILS (test code = 28453297) 63.7 % N LYMPHOCYTES (test code = 58027685) 28.1 % N MONOCYTES (test code = 26549660) 3.8 % N EOSINOPHILS (test code = 34964064) 3.9 % N BASOPHILS (test code = 98825149) 0.5 % N [facility] [id number] 13:55:00* Test Item Value Reference Range Interpretation Comme nts GLUCOSE (test code = 76440642) 147 mg/dL 65-99 H Fasting referenc e interval For someone without known diabetes, a glucosevalue >125 mg/dL indicates that they may havediabetes and this should be confirmed with afollow-up test. UREA NITROGEN (BUN) (test code = 08837382) 12 mg/dL 7-25 N CREATININE (test code = 66934225) 0.46 mg/dL 0.70-1.30 L EGFR (test code = 75666098) 121 mL/min/1.73m2 >=60 N BUN/CREATININE RATIO (test code = 86597646) 26 (calc) 6-22 H SODIUM (test code = 03114954) 136 mmol/L 135-146 N POTASSIUM (test code = 99022263) 3.9 mmol/L 3.5-5.3 N CHLORIDE (test code = 87649548) 99 mmol/L 98-110 N CARBON DIOXIDE (test code = 42679327) 28 mmol/L 20-32 N CALCIUM (test code = 77475111) 8.9 mg/dL 8.6-10.3 [address] [facility]2024-01-19 13:55:00* Test Item Value Reference Range Interpretation Comme nts WHITE BLOOD CELL COUNT (test code = 24572443) 6.8 Thousand/uL 3.8-10.8 N RED BLOOD CELL COUNT (test code = 57480640) 4.73 Million/uL 4.20-5.80 N HEMOGLOBIN (test code = 81132795) 11.7 g/dL 13.2-17.1 L HEMATOCRIT (test code = 01236010) 38.0 % 38.5-50.0 L MCV (test code = 24864099) 80.3 fL 80.0-100.0 N MCH (test code = 52450168) 24.7 pg 27.0-33.0 L MCHC (test code = 07724148) 30.8 g/dL 32.0-36.0 L RDW (test code = 10385472) 15.3 % 11.0-15.0 H PLATELET COUNT (test code = 48587953) 141 Thousand/uL 140-400 N MPV (test code = 37587583) fL 7.5-12.5 N Due to platelet or RBC variability in size or shapethe result cannot be reported accurately. ABSOLUTE NEUTROPHILS (test code = 35851364) 5005 cells/uL 9608-5200 N ABSOLUTE LYMPHOCYTES (test code = 64417531) 1251 cells/uL 850-3900 N ABSOLUTE MONOCYTES (test code = 98786826) 272 cells/uL 200-950 N ABSOLUTE EOSINOPHILS (test code = 78634089) 252 cells/uL 15-500 N ABSOLUTE BASOPHILS (test code = 26440805) 20 cells/uL 0-200 N NEUTROPHILS (test code = 58282564) 73.6 % N LYMPHOCYTES (test code = 39946027) 18.4 % N MONOCYTES (test code = 04890108) 4.0 % N EOSINOPHILS (test code = 63446881) 3.7 % N BASOPHILS (test code = 65817294) 0.3 % N [facility]HEMOGLOBIN [id number] 18:17:00* Test Item Value Reference Range Interpretation Comments HEMOGLOBIN A1c (test code = 43609000) 7.0 % of total Hgb <5.7 H For someone without known diabetes, a hemoglobin Q5svlond of 6.5% or greater indicates that they [...] children. This test was performed on the Kathy viviaen c503 platform.Effective 09/07/23, a change in test platforms from theTalkable to the Kathy viviane c503 may have [id number] results compared to historical results.[facility], the Kathy platform relative to the WhoWantsMeform had an average increase in HbA1c value of< or = 0.3%. This difference is within accepted variability established by the National GlycohemoglobinStandardization Program. Note that not all individualswill have had a shift in their results and directcomparisons between historical and current results fortesting conducted on different platforms is notrecommended. [facility] META [id number] 15:13:00* Test Item Value Reference Range Interpretation Comme nts GLUCOSE (test code = 94720592) 132 mg/dL 65-99 H Fasting referenc e interval For someone without known diabetes, a glucosevalue >125 mg/dL indicates that they may havediabetes and this should be confirmed with afollow-up test. UREA NITROGEN (BUN) (test code = 44394699) 9 mg/dL 7-25 N CREATININE (test code = 93751195) 0.47 mg/dL 0.70-1.30 L EGFR (test code = 32310846) 120 mL/min/1.73m2 >=60 N BUN/CREATININE RATIO (test code = 36289497) 19 (calc) 6-22 N SODIUM (test code = 45119007) 140 mmol/L 135-146 N POTASSIUM (test code = 32305644) 4.1 mmol/L 3.5-5.3 N CHLORIDE (test code = 49831992) 101 mmol/L 98-110 N CARBON DIOXIDE (test code = 18080882) 31 mmol/L 20-32 N CALCIUM (test code = 33272767) 9.2 mg/dL 8.6-10.3 N PROTEIN, TOTAL (test code = 40464843) 6.6 g/dL 6.1-8.1 N ALBUMIN (test code = 73151222) 3.5 g/dL 3.6-5.1 L GLOBULIN (test code = 81894039) 3.1 g/dL (calc) 1.9-3.7 N ALBUMIN/GLOBULIN RATIO (test code = 58311710) 1.1 (calc) 1.0-2.5 N BILIRUBIN, TOTAL (test code = 43602346) 0.8 mg/dL 0.2-1.2 N ALKALINE PHOSPHATASE (test code = 74951290) 107 U/L 35-144 N AST (test code = 46363152) 10 U/L 10-35 N ALT (test code = 89655957) 15 U/L 9-46 N [facility] ([facility]FF/PLT[facility]2024-01-14 15:13:00* Test Item Value Reference Range Interpretation Comme nts WHITE BLOOD CELL COUNT (test code = 71841617) 6.9 Thousand/uL 3.8-10.8 N RED BLOOD CELL COUNT (test code = 78444174) 4.47 Million/uL 4.20-5.80 N HEMOGLOBIN (test code = 73019952) 10.9 g/dL 13.2-17.1 L HEMATOCRIT (test code = 03330904) 35.5 % 38.5-50.0 L MCV (test code = 11582629) 79.4 fL 80.0-100.0 L MCH (test code = 07396949) 24.4 pg 27.0-33.0 L MCHC (test code = 02762495) 30.7 g/dL 32.0-36.0 L RDW (test code = 75308393) 14.8 % 11.0-15.0 N PLATELET COUNT (test code = 55888299) 141 Thousand/uL 140-400 N MPV (test code = 99522136) 13.2 fL 7.5-12.5 H ABSOLUTE NEUTROPHILS (test code = 48196132) 4837 cells/uL 3092-3078 N ABSOLUTE LYMPHOCYTES (test code = 81816214) 1559 cells/uL 850-3900 N ABSOLUTE MONOCYTES (test cod e = 95376347) 290 cells/uL 200-950 N ABSOLUTE EOSINOPHILS (test code = 78984614) 193 cells/uL 15-500 N ABSOLUTE BASOPHILS (test cod e = 48775866) 21 cells/uL 0-200 N NEUTROPHILS (test code = 45651436) 70.1 % N LYMPHOCYTES (test code = 78140912) 22.6 % N MONOCYTES (test code = 68409218) 4.2 % N EOSINOPHILS (test code = 35265341) 2.8 % N BASOPHILS (test code = 22531950) 0.3 % N [facility] WITH [id number] 11:00:00* Test Item Value Reference Range Interpretation Comme nts INR (test code = 98085027) 1.1 N Reference Range 0.9-1.1Moderate-intensity Warfarin Therapy 2.0-3.0Higher-intensity Warfarin Therapy 3.0-4.0 PT (test code = 60926335) 11.9 sec 9.0-11.5 H For additional information, please refer [email or web address] (This link is being provided for informational/educational purposes only.) [facility] MET [id number] 14:10:00* Test Item Value Reference Range Interpretation Comme nts GLUCOSE (test code = 10901132) 120 mg/dL 65-99 H Fasting referenc e interval For someone without known diabetes, a glucose valuebetween 100 and 125 mg/dL is consistent withprediabetes and should be confirmed with afollow-up test. UREA NITROGEN (BUN) (test code = 25953581) 24 mg/dL 7-25 N CREATININE (test code = 87813727) 0.73 mg/dL 0.70-1.30 N EGFR (test code = 06773952) 105 mL/min/1.73m2 >=60 N BUN/CREATININE RATIO (test code = 68248622) SEE NOTE: (calc) 6-22 N Not Reported: BUN an d Creatinine are within reference range. SODIUM (test code = 37461984) 138 mmol/L 135-146 N POTASSIUM (test code = 38934369) 4.3 mmol/L 3.5-5.3 N CHLORIDE (test code = 97934790) 101 mmol/L 98-110 N CARBON DIOXIDE (test code = 54099577) 27 mmol/L 20-32 N CALCIUM (test code = 17671556) 8.7 mg/dL 8.6-10.3 N [facility] (DIFF/PLT)2023-11-19 14:10:00* Test Item Value Reference Range Interpretation Comme [facility] WHITE BLOOD CELL COUNT (test code = 15172015) 7.3 Thousand/uL 3.8-10.8 N RED BLOOD CELL COUNT (test code = 21411956) 4.24 Million/uL 4.20-5.80 N HEMOGLOBIN (test code = 40351113) 10.3 g/dL 13.2-17.1 L HEMATOCRIT (test code = 05547085) 34.0 % 38.5-50.0 L MCV (test code = 39096869) 80.2 fL 80.0-100.0 N MCH (test code = 81355930) 24.3 pg 27.0-33.0 L MCHC (test code = 39767575) 30.3 g/dL 32.0-36.0 L RDW (test code = 82926658) 14.5 % 11.0-15.0 N PLATELET COUNT (test code = 82549987) 166 Thousand/uL 140-400 N MPV (test code = 95986201) fL 7.5-12.5 N Due to platelet or RBC variability in size or shapethe result cannot be reported accurately. ABSOLUTE NEUTROPHILS (test code = 96909901) 5015 cells/uL 8824-6446 N ABSOLUTE LYMPHOCYTES (test code = 64085624) 1657 cells/uL 850-3900 N ABSOLUTE MONOCYTES (test code = 43213688) 321 cells/uL 200-950 N ABSOLUTE EOSINOPHILS (test code = 72715029) 277 cells/uL 15-500 N ABSOLUTE BASOPHILS (test code = 35491261) 29 cells/uL 0-200 N NEUTROPHILS (test code = 94472203) 68.7 % N LYMPHOCYTES (test code = 88304705) 22.7 % N MONOCYTES (test code = 53861117) 4.4 % N EOSINOPHILS (test code = 56855158) 3.8 % N BASOPHILS (test code = 21805551) 0.4 % N [facility] MET [id number] 13:21:00* Test Item Value Reference Range Interpretation Comme nts GLUCOSE (test code = 78986168) 77 mg/dL 65-99 N Fasting referenc e interval UREA NITROGEN (BUN) (test code = 15872584) 15 mg/dL 7-25 N CREATININE (test code = 33663344) 0.79 mg/dL 0.70-1.30 N EGFR (test code = 89562063) 103 mL/min/1.73m2 >=60 N BUN/CREATININE RATIO (test code = 84010581) SEE NOTE: (calc) 6-22 N Not Reported: BUN and Creatinine are within reference range. SODIUM (test code = 09751018) 138 mmol/L 135-146 N POTASSIUM (test code = 93000734) 4.2 mmol/L 3.5-5.3 N CHLORIDE (test code = 63101797) 101 mmol/L 98-110 N CARBON DIOXIDE (test code = 01858010) 28 mmol/L 20-32 N CALCIUM (test code = 75104196) 8.9 mg/dL 8.6-10.3 N [facility] (DIFF/PLT)2023-11-16 13:21:00* Test Item Value Reference Range Interpretation Comme nts WHITE BLOOD CELL COUNT (test code = 15687740) 7.1 Thousand/uL 3.8-10.8 N RED BLOOD CELL COUNT (test code = 70201349) 4.30 Million/uL 4.20-5.80 N HEMOGLOBIN (test code = 31875866) 10.4 g/dL 13.2-17.1 L HEMATOCRIT (test code = 46981384) 34.6 % 38.5-50.0 L MCV (test code = 99276140) 80.5 fL 80.0-100.0 N MCH (test code = 63197768) 24.2 pg 27.0-33.0 L MCHC (test code = 44895942) 30.1 g/dL 32.0-36.0 L RDW (test code = 50803640) 14.5 % 11.0-15.0 N PLATELET COUNT (test code = 79791608) 154 Thousand/uL 140-400 N MPV (test code = 48500338) fL 7.5-12.5 N Due to platelet or RBC variability in size or shapethe result cannot be reported accurately. ABSOLUTE NEUTROPHILS (test code = 13359808) 4665 cells/uL 9484-5305 N ABSOLUTE LYMPHOCYTES (test code = 49539971) 1818 cells/uL 850-3900 N ABSOLUTE MONOCYTES (test code = 17857594) 320 cells/uL 200-950 N ABSOLUTE EOSINOPHILS (test code = 05516861) 270 cells/uL 15-500 N ABSOLUTE BASOPHILS (test code = 57003467) 28 cells/uL 0-200 N NEUTROPHILS (test code = 78268763) 65.7 % N LYMPHOCYTES (test code = 69575054) 25.6 % N MONOCYTES (test code = 02194489) 4.5 % N EOSINOPHILS (test code = 94366619) 3.8 % N BASOPHILS (test code = 59181438) 0.4 % N [facility] MET [id number] 12:29:00* Test Item Value Reference Range Interpretation Comme nts GLUCOSE (test code = 73683408) 103 mg/dL 65-99 H Fasting referenc e interval For someone without known diabetes, a glucose valuebetween 100 and 125 mg/dL is consistent withprediabetes and should be confirmed with afollow-up test. UREA NITROGEN (BUN) (test code = 77677113) 17 mg/dL 7-25 N CREATININE (test code = 17180654) 0.93 mg/dL 0.70-1.30 N EGFR (test code = 06501601) 95 mL/min/1.73m2 >=60 N BUN/CREATININE RATIO (test code = 25311199) SEE NOTE: (calc) 6-22 N Not Reported: BUN an d Creatinine are within reference range. SODIUM (test code = 59489113) 139 mmol/L 135-146 N POTASSIUM (test code = 53107096) 4.4 mmol/L 3.5-5.3 N CHLORIDE (test code = 21412664) 104 mmol/L 98-110 N CARBON DIOXIDE (test code = 84233579) 27 mmol/L 20-32 N CALCIUM (test code = 16138814) 8.3 mg/dL 8.6-10.3 L [facility] (DIFF/PLT)2023-11-12 12:29:00* Test Item Value Reference Range Interpretation Comme nts WHITE BLOOD CELL COUNT (test code = 70261054) 6.5 Thousand/uL 3.8-10.8 N RED BLOOD CELL COUNT (test code = 04173958) 4.12 Million/uL 4.20-5.80 L HEMOGLOBIN (test code = 85656645) 10.0 g/dL 13.2-17.1 L HEMATOCRIT (test code = 17034394) 32.9 % 38.5-50.0 L MCV (test code = 90531004) 79.9 fL 80.0-100.0 L MCH (test code = 63757356) 24.3 pg 27.0-33.0 L MCHC (test code = 32641192) 30.4 g/dL 32.0-36.0 L RDW (test code = 05267743) 14.5 % 11.0-15.0 N PLATELET COUNT (test code = 19345855) 146 Thousand/uL 140-400 N MPV (test code = 99561256) fL 7.5-12.5 N Due to platelet or RBC variability in size or shapethe result cannot be reported accurately. ABSOLUTE NEUTROPHILS (test code = 17128014) 4368 cells/uL 3967-2473 N ABSOLUTE LYMPHOCYTES (test code = 34554784) 1599 cells/uL 850-3900 N ABSOLUTE MONOCYTES (test code = 99458095) 280 cells/uL 200-950 N ABSOLUTE EOSINOPHILS (test code = 60951751) 241 cells/uL 15-500 N ABSOLUTE BASOPHILS (test code = 50126004) 13 cells/uL 0-200 N NEUTROPHILS (test code = 43363573) 67.2 % N LYMPHOCYTES (test code = 59456461) 24.6 % N MONOCYTES (test code = 95055161) 4.3 % N EOSINOPHILS (test code = 72446589) 3.7 % N BASOPHILS (test code = 63238637) 0.2 % N [facility] PANEL [id number] 21:25:00* Test Item Value Reference Range Interpretation Comme nts T3 UPTAKE (test code = 49661100) 34 % 22-35 N T4 (THYROXINE), TOTAL (test code = 71851541) 6.4 mcg/dL 4.9-10.5 N FREE T4 INDEX (T7) (test cod e = 65933289) 2.2 1.4-3.8 N TSH (test code = 22987750) 1.55 mIU/L 0.40-4.50 N [facility] MET [id number] 21:25:00* Test Item Value Reference Range Interpretation Comme nts GLUCOSE (test code = 88927593) 141 mg/dL 65-99 H Fasting referenc e interval For someone without known diabetes, a glucosevalue >125 mg/dL indicates that they may havediabetes and this should be confirmed with afollow-up test. UREA NITROGEN (BUN) (test code = 15363288) 18 mg/dL 7-25 N CREATININE (test code = 54180244) 0.66 mg/dL 0.70-1.30 L EGFR (test code = 23492771) 109 mL/min/1.73m2 >=60 N BUN/CREATININE RATIO (test code = 25957606) 27 (calc) 6-22 H SODIUM (test code = 80635333) 137 mmol/L 135-146 N POTASSIUM (test code = 06255619) 3.9 mmol/L 3.5-5.3 N CHLORIDE (test code = 58006208) 100 mmol/L 98-110 N CARBON DIOXIDE (test code = 70020382) 28 mmol/L 20-32 N CALCIUM (test code = 86356683) 8.6 mg/dL 8.6-10.3 N [facility] (DIFF/PLT)2023-11-10 21:25:00* Test Item Value Reference Range Interpretation Comme nts WHITE BLOOD CELL COUNT (test code = 32320006) 7.6 Thousand/uL 3.8-10.8 N RED BLOOD CELL COUNT (test code = 94704305) 4.35 Million/uL 4.20-5.80 N HEMOGLOBIN (test code = 80822728) 10.5 g/dL 13.2-17.1 L HEMATOCRIT (test code = 99902812) 34.7 % 38.5-50.0 L MCV (test code = 63495109) 79.8 fL 80.0-100.0 L MCH (test code = 32477872) 24.1 pg 27.0-33.0 L MCHC (test code = 94068174) 30.3 g/dL 32.0-36.0 L RDW (test code = 30986874) 14.4 % 11.0-15.0 N PLATELET COUNT (test code = 46314443) 159 Thousand/uL 140-400 N MPV (test code = 91781598) fL 7.5-12.5 N Due to platelet or RBC variability in size or shapethe result cannot be reported accurately. ABSOLUTE NEUTROPHILS (test code = 09666145) 5046 cells/uL 0426-7344 N ABSOLUTE LYMPHOCYTES (test code = 79358579) 2006 cells/uL 850-3900 N ABSOLUTE MONOCYTES (test code = 58058664) 319 cells/uL 200-950 N ABSOLUTE EOSINOPHILS (test code = 03561873) 198 cells/uL 15-500 N ABSOLUTE BASOPHILS (test code = 94787914) 30 cells/uL 0-200 N NEUTROPHILS (test code = 45827715) 66.4 % N LYMPHOCYTES (test code = 20502521) 26.4 % N MONOCYTES (test code = 39915728) 4.2 % N EOSINOPHILS (test code = 10504360) 2.6 % N BASOPHILS (test code = 83531491) 0.4 % N [facility],COMP W/RFL [id number] 21:25:00* Test Item Value Reference Range Interpretation Comme nts COLOR (test code = 95039779) DARK YELLOW YELLOW N APPEARANCE (test code = 16799142) CLOUDY CLEAR A SPECIFIC GRAVITY (test code = 27917268) 1.021 1.001-1.035 N PH (test code = 88294888) 5.5 5.0-8.0 N GLUCOSE (test code = 21068145) NEGATIVE NEGATIVE N BILIRUBIN (test code = 64466153) NEGATIVE NEGATIVE N KETONES (test code = 75850260) TRACE NEGATIVE A OCCULT BLOOD (test code = 32303364) NEGATIVE NEGATIVE N PROTEIN (test code = 21747187) 1+ NEGATIVE A NITRITE (test code = 40300953) NEGATIVE NEGATIVE N LEUKOCYTE ESTERASE (test code = 61498230) 2+ NEGATIVE A WBC (test code = 00812269) > OR = 60 /HPF 0-5 A RBC (test code = 72863186) NONE SEEN /HPF 0-2 N SQUAMOUS EPITHELIAL CELLS (test code = 74296982) NONE SEEN /HPF <=5 N BACTERIA (test code = 24009793) MANY /HPF NONE SEEN A HYALINE CAST (test code = 45516562) NONE SEEN /LPF NONE SEEN N NOTE (test code = 12249189) This urine was analyzed for the presence of WBC, RBC, bacteria, casts, and other formed elements. Only those elements seen were reported. [facility], UR [id number] 21:25:00* Test Item Value Reference Range Interpretation Comme nts SOURCE: (test code = 56073732) URINE STATUS: (test code = 28746794) FINAL ISOLATE 1: (test code = 62081929) Enterobacter cloacae complex A [facility],[id number] 21:25:00* Test Item Value Reference Range Interpretation Comme nts ISOLATE (test code = 04213178) N Enterobacter [place] acae complex AMOXICILLIN/CLAVULANI C (test code = 61309059) 16 R CEFAZOLIN (test code = 15031281) >=64 R For uncomplicate d UTI caused by E. coli,K. pneumoniae or P. mirabilis: Cefazolin issusceptible if LISETTE <32 mcg/mL and predictssusceptible to the oral agents cefaclor, cefdinir,cefpodoxime, cefprozil, cefuroxime, cephalexinand loracarbef. CEFTAZIDIME (test code = 66932661) <=1 S CEFEPIME (test code = 90540257) <=1 S CEFTRIAXONE (test code = 69916664) <=1 S CIPROFLOXACIN (test code = 09840961) <=0.25 S LEVOFLOXACIN (test code = 98107093) <=0.12 S GENTAMICIN (test code = 34633027) <=1 S IMIPENEM (test code = 99149060) <=0.25 S NITROFURANTOIN (test code = 63155384) 64 I PIPERACILLIN/TAZOBACT AM (test code = 96461094) <=4 S TOBRAMYCIN (test code = 42225186) <=1 S TRIMETHOPRIM/SULFA (test code = 25498356) >=320 R Legend:S = Susce ptible I = IntermediateR = Resistant NS = Not susceptible* = Not tested NR = Not reportedNN = See antimicrobic comments [facility] [id number] 21:25:00* Test Item Value Reference Range Interpretation Comme nts REFLEXIVE URINE CULTURE (test code = 13506033) CULTURE I NDICATED - RESULTS TO FOLLOW [facility]URA,[id number] 10:09:00* Test Item Value Reference Range Interpretation Comme nts ISOLATE (test code = 59696214) N Gram negative ba cilli isolated [facility] [id number] 10:09:00* Test Item Value Reference Range Interpretation Comme nts REFLEXIVE URINE CULTURE (test code = 72177129) CULTURE I NDICATED - RESULTS TO FOLLOW [facility]ITALTHYROID PANEL [id number] 10:09:00* Test Item Value Reference Range Interpretation Comme nts T3 UPTAKE (test code = 94486654) 34 % 22-35 N T4 (THYROXINE), TOTAL (test code = 49470708) 6.4 mcg/dL 4.9-10.5 N FREE T4 INDEX (T7) (test cod e = 22917407) 2.2 1.4-3.8 N TSH (test code = 45114763) 1.55 mIU/L 0.40-4.50 N [facility] MET [id number] 10:09:00* Test Item Value Reference Range Interpretation Comme nts GLUCOSE (test code = 23049311) 141 mg/dL 65-99 H Fasting referenc e interval For someone without known diabetes, a glucosevalue >125 mg/dL indicates that they may havediabetes and this should be confirmed with afollow-up test. UREA NITROGEN (BUN) (test code = 36071757) 18 mg/dL 7-25 N CREATININE (test code = 53518847) 0.66 mg/dL 0.70-1.30 L EGFR (test code = 00298252) 109 mL/min/1.73m2 >=60 N BUN/CREATININE RATIO (test code = 67685911) 27 (calc) 6-22 H SODIUM (test code = 58509169) 137 mmol/L 135-146 N POTASSIUM (test code = 97903702) 3.9 mmol/L 3.5-5.3 N CHLORIDE (test code = 02206303) 100 mmol/L 98-110 N CARBON DIOXIDE (test code = 92843703) 28 mmol/L 20-32 N CALCIUM (test code = 49894268) 8.6 mg/dL 8.6-10.[address] [facility] ([facility]FF/PLT)2023-11-10 10:09:00* Test Item Value Reference Range Interpretation Comme nts WHITE BLOOD CELL COUNT (test code = 01530112) 7.6 Thousand/uL 3.8-10.8 N RED BLOOD CELL COUNT (test code = 31915375) 4.35 Million/uL 4.20-5.80 N HEMOGLOBIN (test code = 52604215) 10.5 g/dL 13.2-17.1 L HEMATOCRIT (test code = 85380881) 34.7 % 38.5-50.0 L MCV (test code = 00008404) 79.8 fL 80.0-100.0 L MCH (test code = 49952071) 24.1 pg 27.0-33.0 L MCHC (test code = 77215737) 30.3 g/dL 32.0-36.0 L RDW (test code = 07467462) 14.4 % 11.0-15.0 N PLATELET COUNT (test code = 98586456) 159 Thousand/uL 140-400 N MPV (test code = 88285298) fL 7.5-12.5 N Due to platelet or RBC variability in size or shapethe result cannot be reported accurately. ABSOLUTE NEUTROPHILS (test code = 28692594) 5046 cells/uL 1952-7700 N ABSOLUTE LYMPHOCYTES (test code = 98761772) 2006 cells/uL 850-3900 N ABSOLUTE MONOCYTES (test code = 32950219) 319 cells/uL 200-950 N ABSOLUTE EOSINOPHILS (test code = 27421781) 198 cells/uL 15-500 N ABSOLUTE BASOPHILS (test code = 34853558) 30 cells/uL 0-200 N NEUTROPHILS (test code = 01688824) 66.4 % N LYMPHOCYTES (test code = 59615649) 26.4 % N MONOCYTES (test code = 11318116) 4.2 % N EOSINOPHILS (test code = 66620486) 2.6 % N BASOPHILS (test code = 77687433) 0.4 % N [facility] W/RFL [id number] 10:09:00* Test Item Value Reference Range Interpretation Comme nts COLOR (test code = 49641252) DARK YELLOW YELLOW N APPEARANCE (test code = 47321290) CLOUDY CLEAR A SPECIFIC GRAVITY (test code = 33557273) 1.021 1.001-1.035 N PH (test code = 02249991) 5.5 5.0-8.0 N GLUCOSE (test code = 89250510) NEGATIVE NEGATIVE N BILIRUBIN (test code = 14659764) NEGATIVE NEGATIVE N KETONES (test code = 62381519) TRACE NEGATIVE A OCCULT BLOOD (test code = 17336803) NEGATIVE NEGATIVE N PROTEIN (test code = 93258954) 1+ NEGATIVE A NITRITE (test code = 75854040) NEGATIVE NEGATIVE N LEUKOCYTE ESTERASE (test code = 07010729) 2+ NEGATIVE A WBC (test code = 06530031) > OR = 60 /HPF 0-5 A RBC (test code = 86849076) NONE SEEN /HPF 0-2 N SQUAMOUS EPITHELIAL CELLS (test code = 98708795) NONE SEEN /HPF <=5 N BACTERIA (test code = 90844890) MANY /HPF NONE SEEN A HYALINE CAST (test code = 70153742) NONE SEEN /LPF NONE SEEN N NOTE (test code = 04347251) This urine was analyzed for the presence of WBC, RBC, bacteria, casts, and other formed elements. Only those elements seen were reported. [facility], UR [id number] 10:09:00* Test Item Value Reference Range Interpretation Comme nts SOURCE: (test code = 58880967) URINE STATUS: (test code = 06302167) PRELIMINARY ISOLATE 1: (test code = 63048683) Gram negative bacilli isolated [facility] [id number] 21:49:00* Test Item Value Reference Range Interpretation Comme nts GLUCOSE (test code = 73671526) 117 mg/dL 65-99 H Fasting referenc e interval For someone without known diabetes, a glucose valuebetween 100 and 125 mg/dL is consistent withprediabetes and should be confirmed with afollow-up test. UREA NITROGEN (BUN) (test code = 27568095) 18 mg/dL 7-25 N CREATININE (test code = 33788501) 0.61 mg/dL 0.70-1.30 L EGFR (test code = 47569930) 111 mL/min/1.73m2 >=60 N BUN/CREATININE RATIO (test code = 48200372) 30 (calc) 6-22 H SODIUM (test code = 22431797) 137 mmol/L 135-146 N POTASSIUM (test code = 93353290) 4.4 mmol/L 3.5-5.3 N CHLORIDE (test code = 02942601) 102 mmol/L 98-110 N CARBON DIOXIDE (test code = 26457430) 26 mmol/L 20-32 N CALCIUM (test code = 92319388) 8.7 mg/dL 8.6-10.3 N PROTEIN, TOTAL (test code = 57968371) 6.5 g/dL 6.1-8.1 N ALBUMIN (test code = 33266195) 3.7 g/dL 3.6-5.1 N GLOBULIN (test code = 67874800) 2.8 g/dL (calc) 1.9-3.7 N ALBUMIN/GLOBULIN RATIO (test code = 07410630) 1.3 (calc) 1.0-2.5 N BILIRUBIN, TOTAL (test code = 28392407) 0.5 mg/dL 0.2-1.2 N ALKALINE PHOSPHATASE (test code = 51743983) 112 U/L 35-144 N AST (test code = 17948299) 17 U/L 10-35 N ALT (test code = 83022389) 17 U/L 9-[address] [facility] WITH [id number] 21:49:00* Test Item Value Reference Range Interpretation Comme nts INR (test code = 00565644) 1.1 N Reference Range 0.9-1.1Moderate-intensity Warfarin Therapy 2.0-3.0Higher-intensity Warfarin Therapy 3.0-4.0 PT (test code = 78290862) 11.4 sec 9.0-11.5 N For additional information, please refer [email or web address] (This link is being provided for informational/educational purposes only.) [facility]2023-11-09 21:49:00* Test Item Value Reference Range Interpretation Comme nts WHITE BLOOD CELL COUNT (test code = 03778277) 8.0 Thousand/uL 3.8-10.8 N RED BLOOD CELL COUNT (test code = 58616549) 4.25 Million/uL 4.20-5.80 N HEMOGLOBIN (test code = 29581000) 10.1 g/dL 13.2-17.1 L HEMATOCRIT (test code = 00030595) 33.9 % 38.5-50.0 L MCV (test code = 34564693) 79.8 fL 80.0-100.0 L MCH (test code = 99830424) 23.8 pg 27.0-33.0 L MCHC (test code = 49486581) 29.8 g/dL 32.0-36.0 L RDW (test code = 47733894) 14.5 % 11.0-15.0 N PLATELET COUNT (test code = 82346451) 149 Thousand/uL 140-400 N MPV (test code = 43713878) fL 7.5-12.5 N Due to platelet or RBC variability in size or shapethe result cannot be reported accurately. ABSOLUTE NEUTROPHILS (test code = 66330053) 5928 cells/uL 9933-9838 N ABSOLUTE LYMPHOCYTES (test code = 78973310) 1560 cells/uL 850-3900 N ABSOLUTE MONOCYTES (test code = 44162515) 336 cells/uL 200-950 N ABSOLUTE EOSINOPHILS (test code = 42765838) 160 cells/uL 15-500 N ABSOLUTE BASOPHILS (test code = 55336964) 16 cells/uL 0-200 N NEUTROPHILS (test code = 95848033) 74.1 % N LYMPHOCYTES (test code = 59274779) 19.5 % N MONOCYTES (test code = 61027018) 4.2 % N EOSINOPHILS (test code = 41156553) 2.0 % N BASOPHILS (test code = 53531226) 0.2 % N [facility] [id number] 20:16:00* Test Item Value Reference Range Interpretation Comme nts HEMOGLOBIN A1c (test code = 95727895) 10.3 % of total Hgb <5.7 H For someone without known diabetes, a hemoglobin N6pxqcgs of 6.5% or greater indicates that they [...] of diabetes for children. HbA1c performed on [employer] platform.Effective 09/07/23 a change in test platforms may have shifted HbA1c results compared to historical results. [facility]
[2024-06-07] MEDS ORDERED: KETOROLAC 30 MG/ML INJ ONE (23:53)
[2024-06-07] MEDS ORDERED: ONDANSETRON 4 MG/2 ML VIAL ONE (23:53)
[2024-06-07] MEDS ORDERED: NA CHLORIDE 0.9% 1,000 ML ONE (23:53)
[2024-06-08 00:11] LABS: Absolute Eosinophils 0.2 K/uL (0-0.5); Absolute Lymphocytes (CBC) 1.2 K/uL (0.7-4.9); Absolute Monocytes 0.4 K/uL (0.1-1.3); Absolute Neutrophil 6.3 K/uL (1.8-8.0); Basophils % 0.4 % (0-1.3); Eosinophils % 2.1 % (0-4.4); Hematocrit 25.4 % (39.6-49.0); Hemoglobin 7.2 g/dL (13.6-17.9); Lymphocytes % 15.1 % (15.3-44.8); MCHC 28.4 g/dL (32.0-36.0); MPV 9.4 fL (7.6-11.3); Monocytes % 4.4 % (3.3-12.3); Nucleated Red Blood Cells % 0.2 % (0-0); Platelets 196 thou/uL (152-406); RBC Red Blood Cell Count 3.79 M/uL (4.33-5.43); Red Cell Distribution Width 19.2 % (12.1-15.2)
[2024-06-08 00:16] LABS: ALT/SGPT 15 U/L (16-61); Albumin/Globulin Ratio 0.8 (1.1-1.8); Alkaline Phosphatase 101 U/L (45-117); Anion Gap 5.8 mEq/L (5.0-15.0); BUN Blood Urea Nitrogen 11 mg/dL (7-18); Bicarbonate 36 mEq/L (21-32); Bilirubin Total 0.7 mg/dL (0.2-1.0); Globulin 3.8 g/dL (2.3-3.5); Glomerular Filtration Rate 129 ml/min (=/>90); Glucose Level 224 mg/dL (74-106); Lipase 28 U/L (13-75); Potassium 3.8 mEq/L (3.5-5.1); Protein, Total 6.8 g/dL (6.4-8.2); Sodium Level 137 mEq/L (136-145)
[2024-06-08 00:19] LABS: Specific Gravity 1.006 (1.005-1.030); Sqamous Epithelial None Seen /HPF (None Seen); Urine Bacteria None Seen /HPF (<20); Urine Bilirubin NEGATIVE (Negative); Urine Blood Negative (Negative); Urine Clarity Clear (Clear); Urine Color Light-Yellow (Yellow); Urine Culture Reflex Order REFLEXED; Urine Glucose NEGATIVE (Negative); Urine Ketones NEGATIVE (Negative); Urine Microscopic Reflex YN ORDER UMIC; Urine Nitrite NEGATIVE (Negative); Urine Protein NEGATIVE (Negative); Urine RBC <5 /HPF (None Seen); Urine Urobilinogen 2+ (Normal)
[2024-06-08 00:21] LABS: AST/SGOT < 10 U/L (15-37)
[2024-06-08 01:31] LABS: Blood Morphology Comment NOTED (NOT SEEN); Platelet Estimate ADEQ; White Blood Cell Scan OK (OK)
[2024-06-08 01:34] LABS: Anisocytosis 1+; Hypochromasia 1+; Microcytosis 1+; Ovalocytes 1+; Poikilocytosis 1+; Polychromasia 1+
--- NOTE | 2024-06-08 03:18 | ER ---
Nurse's Notes [facility] Name: Tej Kumar Age: 58 yrs Sex: Male : 1965 Arrival Date: 06/07/2024 Time: 22:58 Bed 14 Private MD: Diagnosis: Mechanical complication of urinary (indwelling) catheter;Chronic anemia, physical debility, nondraining Coronel catheter. Presentation: 06/07 23:59 Chief complaint: Patient states: Coronel not draining, lower abdominal pain 07/05. kd4 Coronavirus screen: Client denies travel out of the [place] in the last 14 days. Ebola Screen: No symptoms or risks identified at this time. Initial Sepsis Screen: Does the patient meet any 2 criteria? No. Patient's initial sepsis screen is negative. Does the patient have a suspected source of infection? No. Patient's initial sepsis screen is negative. Risk Assessment: Do you want to hurt yourself or someone else? Patient reports no desire to harm self or others. Onset of symptoms was June 08, 2024. 23:59 Method Of Arrival: EMS: [facility] 4 23:59 Acuity: DAVID 3 kd4 Triage Assessment: 06/08 00:01 General: Appears in no apparent distress. comfortable, Behavior is calm, cooperative. kd4 Pain: Complains of pain in abdominal pain, left leg pain Pain currently is 9 out of 10 on a pain scale. - Immunization history:: Adult Immunizations up to date. - Infectious Disease History:: Denies. - Social history:: Smoking status: Patient/guardian denies using alcohol, street drugs, IV drugs, tobacco products. Screenin:08 [facility] ED Fall Risk Assessment (Adult) History of falling in the last 3 months, kd4 including since admission Yes- fall prone (multiple falls) (3 pts) Confusion or Disorientation No (0 pts) Intoxicated or Sedated No (0 pts) Impaired Gait Yes (1 pt) Mobility Assist Device Used Yes (1 pt) Altered Elimination Yes (1 pt) Score/Fall Risk Level 3 or more points = High Risk Oriented to surroundings, Maintained a safe environment, Educated pt \T\ family on fall prevention, incl call for assistance when getting out of bed, Hourly rounding (assess needs \T\ fall precautionary measures) done. Abuse screen: Denies threats or abuse. Nutritional screening: No deficits noted. Tuberculosis screening: No symptoms or risk factors identified. Assessment: 00:02 General: See triage assessment. Pain: Complains of pain in abdominal pain. kd4 00:05 Neuro: Denies dizziness, difficulty swallowing, Patient quadriplegic at baseline, on 2l kd4 NC at home . GI: Reports lower abdominal pain. : Reports coronel in place , patient report coronel is replaced earlier yesterday but not draining. On arrival noted urine in bag, placed order to replace coronel. 01:10 General: PRESSURE ULCER NOTED TO SACRUM AREA, R AKA.. kd4 01:50 General: 16 FR coronel placed with JUANJO Hidalgo present at bedside, sterile technique kd4 maintained. patient tolerate well. Urine flow in bag noted, bag placed below bladder level.. 03:57 General: CORONEL IN PLACE.. kd4 Vital Signs: 06/07 23:07 BP 111 / 63; Pulse 86; Resp 20; Temp 98.2; Pulse Ox 93% on 3 lpm NC; Pain 5/10; kd4 0814 00:40 BP 109 / 59; Pulse 70; Resp 18; Pulse Ox 98% on 2 lpm NC; kd4 01:18 BP 110 / 52; Pulse 110; Resp 20; Pulse Ox 98% on R/A; kd4 01:39 BP 120 / 63; Pulse 73; Resp 20; Pulse Ox 96% on 2 lpm NC; kd4 03:13 BP 114 / 68; Pulse 85; Resp 18; Temp 98.1; Pulse Ox 95% on 2 lpm NC; Pain 3/10; kd4 06/07 23:07 Pain Scale: Adult kd4 03:13 Pain Scale: Adult kd4 Golden Coma Score: 06/07 23:47 Eye Response: spontaneous(4). Motor Response: obeys commands(6). Verbal Response: kd4 oriented(5). Total: 15. ED Course: 23:06 Patient arrived in ED. kd4 23:07 William Bird RN is Primary Nurse. kd4 23:11 Kp Lopez MD is Attending Physician. sp4 23:47 Initial lab(s) drawn, by me, sent to lab. Urine collected:. Inserted saline lock: 20 kd4 gauge in right antecubital area, using aseptic technique. 06/08 00:01 Triage completed. kd4 00:01 Arm band placed on right wrist. kd4 00:08 Patient has correct armband on for positive identification. Bed in low position. Call kd4 light in reach. Side rails up X2. Adult w/ patient. 01:11 CT Abd/Pelvis - IV Contrast Only In Process Unspecified. EDMS 01:55 Coronel cath inserted, using sterile technique, 16 Fr., Patient tolerated well. kd4 03:16 Cayden Skinner MD is Referral Physician. sp4 03:53 No provider procedures requiring assistance completed. IV discontinued. kd4 03:55 Provided Education on: DISCHARGE INSTRUCTION, FOLLOW UP CARE. REPORT GIVEN TO EMS.. kd4 Administered Medications: 06/07 23:58 Drug: Ondansetron IVP 4 mg IVP once; over 2 minutes Route: IVP; Site: right antecubital;kd4 06/08 02:01 Follow up: Response: No adverse reaction kd4 06/07 23:59 Drug: NS 0.9% IV 1000 ml IV at 1 bolus Per protocol; 1000 mL bolus Route: IV; Rate: 1 kd4 bolus; Site: right antecubital; 06/08 03:29 Follow up: IV Status: Completed infusion kd4 06/07 23:59 Drug: TORadol - Ketorolac IVP 15 mg IVP once Route: IVP; Site: right antecubital; kd4 06/08 02:01 Follow up: Response: No adverse reaction kd4 01:54 CANCELLED (Physician Discretion; orderr): [id number] grams 100 ml IVPB once; (Note: kd4 Albumin 25% concentration) Medication: 03:56 VIS not applicable for this client. kd4 Output: 01:55 Urine: 500ml (Coronel); Total: 500ml. kd4 Outcome: 03:17 Discharge ordered by . sp4 03:54 Discharged to home via ambulance, with friend, kd4 03:54 Condition: stable 03:54 Discharge instructions given to patient, EMS, Instructed on discharge instructions, follow up and referral plans. Demonstrated understanding of instructions, follow-up care, 03:58 Patient left the ED. kd4 Signatures: Dispatcher [employer] EDMS Kp Lopez MD MD sp4 Dahissa, Karim, RN RN kd4
--- NOTE | 2024-06-08 03:18 | EDPHYS ---
Physician Documentation [facility] Name: Tej Kumar Age: 58 yrs Sex: Male : 1965 Arrival Date: 06/07/2024 Time: 22:58 Bed 14 Private MD: ED Physician Kp Lopez HPI: 06/07 23:13 This 58 yrs old Male presents to ER via Unassigned with complaints of Cather sp4 not draining, and pelvic pain . 06/08 01:02 58-year-old male presents with complaint of bladder pain also complaining of non sp4 draining urinary catheter. Patient has history of recent admission in April 07, 2024 for hematuria, complicated UTI, diabetic neuropathy, type 2 diabetes, hypertension, congestive heart failure, lymphedema, obstructive sleep apnea also history of cystocele repair by Dr. Skinner. . 01:08 Patient has indwelling Mendoza catheter, after his admission patient was discharged with sp4 p.o. cephalexin and nitrofurantoin. Patient has history of hemiplegia and he has history of obstructive sleep apnea. Patient's medications include twice daily, calcium carbonate daily, cholecalciferol bedtime, docusate daily, fluticasone bedtime, gabapentin 300 p.o. 3 times daily, Tresiba FlexTouch insulin 90 units daily, tamsulosin 0.4 mg p.o. daily, tramadol 50 mg p.o. 3 times daily, furosemide 40 mg p.o. daily, pregabalin 75 mg p.o. daily, Entresto p.o. daily, furosemide 40 mg p.o. daily,. - Immunization history:: Adult Immunizations up to date. - Infectious Disease History:: Denies. - Social history:: Smoking status: Patient/guardian denies using alcohol, street drugs, IV drugs, tobacco products. ROS: 01:09 Constitutional: Negative for fever, chills, and weight loss, positive for pelvic pain sp4 and nondraining Mendoza catheter. 01:09 All other systems are negative, Exam: 01:09 Constitutional: patient who is awake, alert, and in no acute distress. Patient has sp4 moderate to severe physical debility, morbid obesity, right above-knee amputation, indwelling Mendoza catheter, left lower extremity swelling, signs of prolonged immobility. Vietnamese-speaking only. Head/Face: Normocephalic, atraumatic. Eyes: Pupils equal round and reactive to light, extra-ocular motions intact. Lids and lashes normal. Conjunctiva and sclera are not injected. Cornea within normal limits. Periorbital areas with no swelling, redness, or edema. ENT: Nares patent. No nasal discharge, no septal abnormalities noted. Tympanic membranes are normal and external auditory canals are clear. Oropharynx with no redness, swelling, or masses, exudates, or evidence of obstruction, uvula midline. Mucous membranes moist. Neck: Trachea midline, no thyromegaly or masses palpated, and no cervical lymphadenopathy. Supple, full range of motion without nuchal rigidity, or vertebral point tenderness. Chest/axilla: Normal chest wall appearance and motion. Nontender with no deformity. No lesions are appreciated. Cardiovascular: Regular rate and rhythm with a normal S1 and S2. No gallops, murmurs, or rubs. Normal PMI, no JVD. No pulse deficits. Respiratory: Lungs have equal breath sounds bilaterally, clear to auscultation and percussion. No rales, rhonchi or wheezes noted. No increased work of breathing, no retractions or nasal flaring. Abdomen/GI: Soft, with normal bowel sounds. No distension or tympany. No guarding or rebound. No evidence of tenderness throughout. Back: No spinal tenderness. No costovertebral tenderness. There are a sacral stage I decubitus ulcers. Male : Normal genitalia with no discharge or lesions. Positive for indwelling Mendoza catheter, uncircumcised male. Skin: Warm, dry with normal turgor. Normal color with no rashes, no lesions, and no evidence of cellulitis. MS/ Extremity: Pulses equal, no cyanosis. There is right above-knee amputation. Left lower extremity with muscle atrophy and chronic appearance swelling. Neuro: Awake and alert, GCS 15, oriented to person, place, time, and situation. Cranial nerves II-XII grossly intact. Motor strength 5/5 in all extremities. Sensory grossly intact. Psych: Awake, alert, with orientation to person, place and time. Behavior, mood, and affect are within normal limits Vital Signs: 06/07 23:07 BP 111 / 63; Pulse 86; Resp 20; Temp 98.2; Pulse Ox 93% on 3 lpm NC; Pain 5/10; kd4 06/08 00:40 BP 109 / 59; Pulse 70; Resp 18; Pulse Ox 98% on 2 lpm NC; kd4 01:18 BP 110 / 52; Pulse 110; Resp 20; Pulse Ox 98% on R/A; kd4 01:39 BP 120 / 63; Pulse 73; Resp 20; Pulse Ox 96% on 2 lpm NC; kd4 03:13 BP 114 / 68; Pulse 85; Resp 18; Temp 98.1; Pulse Ox 95% on 2 lpm NC; Pain 3/10; kd4 06/07 23:07 Pain Scale: Adult kd4 03:13 Pain Scale: Adult kd4 Maxie Coma Score: 06/07 23:47 Eye Response: spontaneous(4). Motor Response: obeys commands(6). Verbal Response: kd4 oriented(5). Total: 15. MDM: 23:36 Patient medically screened. sp4 06/08 03:16 ED course: EXAM DESCRIPTION: CTABDOMEN PELVIS WITH IV CONTRAST 06/08/2024 2:32 AM CDT sp4 CLINICAL HISTORY: 58 years, Male, Abdominal Pain. COMPARISON: CTAbdomen Pelvis With IV Contrast 03/24/2023. PROCEDURE: Contrast-enhanced images of the abdomen and pelvis were performed from the lung bases to the ischial tuberosities after the administration of IV contrast. In addition multiplanar reformats in the coronal and sagittal plane were obtained and reviewed. An individualized dose optimization technique, Automated Exposure Control, was utilized for the performed procedure. FINDINGS: Lung bases: The lung bases compressive atelectatic changes and mild elevation both hemidiaphragms. Liver: The liver demonstrated presence of decreased attenuation corresponding to mild fatty infiltration. Gallbladder: The gallbladder demonstrates presence of layering high density structures corresponding to cholelithiasis. No significant inflammatory changes and/or biliary duct dilatation. Adrenal glands: The adrenal glands demonstrate to be normal. Pancreas: The pancreas demonstrate to be normal. Spleen: The spleen demonstrate to be within normal limits. Kidneys: The kidneys demonstrate normal uptake of contrast media. There is no evidence for nephrolithiasis and/or hydronephrosis. Small bilateral renal cysts with the largest one anterior upper pole left kidney measuring 2.1 cm on image 31, largest one right kidney upper pole measuring 2 cm on image 24. GI: Grossly the unopacified stomach, small bowel and large bowel demonstrate to be within normal limits. No evidence for bowel dilatation and/or free air. The appendix is normal. The left-sided colon demonstrate to be decompressed with no gross abnormalities. : The urinary bladder demonstrate to be decompressed with presence of a Mendoza catheter with balloon located within the prostate, deflation and further advancement of approximately 3.5 cm could be of assistance. Genitalia: The prostate gland is normal. Abdominal aorta: The aorta demonstrate to be within normal limits. Retroperitoneum:There is no retroperitoneal lymphadenopathy. There is no evidence for ascites and/or abnormal fluid collections. Bones: There is mild diffuse bony osteopenia. There is diffuse anterior spondylosis/bone bridging proximal corresponding to diffuse idiopathic skeletal hyperostosis an/or ankylosis spondylitis is less likely consider. Soft tissues: The soft tissues demonstrate to be unremarkable. IMPRESSION: Mendoza catheter balloon located within the prostate, deflation and further advancement of approximately 3.5 cm could be of assistance. Cholelithiasis. Mild fatty infiltration of the liver. Left Bosniak I benign renal cyst measuring 2.1 cm. No follow-up imaging is recommended. JACR 2018 Nov; 264-273, Management of the Incidental Renal Mass on CT, [employer] 2020; 814-848, Bosniak Classification of Cystic Renal Masses, Version 2019. Diffuse anterior spondylosis/bone bridging proximal corresponding to diffuse idiopathic skeletal hyperostosis an/or ankylosis spondylitis is less likely consider. . 03:18 ED course: Urinary catheter on a CAT scan was found to be inside the prostate. Which sp4 explains why it is nondraining, patient was given a new urinary catheter which is draining well. Nitrites are negative. No need to treat for UTI. Advise follow-up with urology as planned. Patient's anemia is chronic unchanged from baseline. Otherwise stable for discharge home with EMS transport . 03:18 Differential diagnosis: nonspecific abdominal pain, urinary retention, Mendoza catheter sp4 problem, prostatitis, urethritis. Data reviewed: vital signs, nurses notes, EMS record, old medical records, lab test result(s), radiologic studies, CT scan. 06/07 23:13 Order name: CBC with Diff; Complete Time: 02:44 sp4 06/07 23:13 Order name: CMP; Complete Time: 00:32 sp4 06/07 23:13 Order name: Lipase; Complete Time: 00:32 sp4 06/07 23:13 Order name: Urinalysis w/ reflexes; Complete Time: 00:32 sp4 06/08 00:25 Order name: Urine Culture EDWI 06/08 01:32 Order name: CBC Smear Scan; Complete Time: 02:44 EDWI 06/07 23:13 Order name: CT Abd/Pelvis - IV Contrast Only sp4 06/07 23:13 Order name: IV Saline Lock; Complete Time: 23:59 sp4 06/07 23:13 Order name: Labs collected and sent; Complete Time: 23:59 sp4 06/07 23:13 Order name: Mendoza; Complete Time: 01:54 sp4 Administered Medications: 06/07 23:58 Drug: Ondansetron IVP 4 mg IVP once; over 2 minutes Route: IVP; Site: right antecubital;4 06/08 02:01 Follow up: Response: No adverse reaction kd4 06/07 23:59 Drug: NS 0.9% IV 1000 ml IV at 1 bolus Per protocol; 1000 mL bolus Route: IV; Rate: 1 kd4 bolus; Site: right antecubital; 06/08 03:29 Follow up: IV Status: Completed infusion kd4 06/07 23:59 Drug: TORadol - Ketorolac IVP 15 mg IVP once Route: IVP; Site: right antecubital; kd4 06/08 02:01 Follow up: Response: No adverse reaction kd4 01:54 CANCELLED (Physician Discretion; orderr): [id number] grams 100 ml IVPB once; (Note: kd4 Albumin 25% concentration) Disposition Summary: 06/08/24 03:17 Discharge Ordered Notes: Location: Home sp4 Problem: new sp4 Symptoms: have improved sp4 Condition: Stable sp4 Diagnosis - Mechanical complication of urinary (indwelling) catheter sp4 - Chronic anemia, physical debility, nondraining Mendoza catheter. sp4 Followup: sp4 - With: Private Physician - When: 7 - 10 days - Reason: Recheck today's complaints Followup: sp4 - With: Cayden Skinner MD - When: 7 - 10 days - Reason: Recheck today's complaints Discharge Instructions: - Discharge Summary Sheet sp4 - Indwelling Urinary Catheter Care, Adult, [id number] sp4 Forms: - Patient Portal Instructions sp4 Signatures: Dispatcher [employer] Kp Bardales MD MD sp4 William Bird RN RN kd4 Corrections: (The following items were deleted from the chart) 01:54 06/07 23:13 Albumin IVPB 25 grams 100 ml IVPB once; (Note: Albumin 25% concentration) kd4 ordered. sp4
[2024-06-08 04:06] VITALS: BP 114/68; TEMP 98.1; O2SAT 95
--- NOTE | 2024-06-09 11:08 | RAD REPORT ---
EXAM DESCRIPTION: CT - Abdomen Pelvis W Contrast - 06/08/2024 1:09 am CLINICAL HISTORY: 58 years, Male, Abdominal Pain. COMPARISON: CT Abdomen Pelvis With IV Contrast 03/24/2023. TECHNIQUE: Contrast-enhanced images of the abdomen and pelvis were performed from the lung bases to the ischial tuberosities after the administration of IV contrast. In addition multiplanar reformats in the coronal and sagittal plane were obtained and reviewed. An individualized dose optimization technique, Automated Exposure Control, was utilized for the perfo rmed procedure. FINDINGS: Lung bases: The lung bases compressive atelectatic changes and mild elevation both hemidia phragms. Liver: The liver demonstrated presence of decreased attenuation corresponding to mild fatty infiltrat ion. Gallbladder: The gallbladder demonstrates presence of layering high density structures corresponding to cholelithiasis. No significant inflammatory changes and/or biliary duct dilatation. Adrenal glands: The adrenal glands demonstrate to be normal. Pancreas: The pancreas demonstrate to be normal. Spleen: The spleen demonstrate to be within normal limits. Kidneys: The kidneys demonstrate normal uptake of contrast media. There is no evidence for nephroli thiasis and/or hydronephrosis. Small bilateral renal cysts with the largest one anterior upper pole l eft kidney measuring 2.1 cm on image 31, largest one right kidney upper pole measuring 2 cm on image 24. GI: Grossly the unopacified stomach, small bowel and large bowel demonstrate to be within normal limi ts. No evidence for bowel dilatation and/or free air. The appendix is normal. The left-sided colon de monstrate to be decompressed with no gross abnormalities. : The urinary bladder demonstrate to be decompressed with presence of a Mendoza catheter with balloon located within the prostate, deflation and further advancement of approximately 3.5 cm could be of a ssistance. Genitalia: The prostate gland is normal. Abdominal aorta: The aorta demonstrate to be within normal limits. Retroperitoneum: There is no retroperitoneal lymphadenopathy. There is no evidence for ascites and/or abnormal fluid collections. Bones: There is mild diffuse bony osteopenia. There is diffuse anterior spondylosis/bone bridging pro ximal corresponding to diffuse idiopathic skeletal hyperostosis an/or ankylosis spondylitis is less l ikely consider. Soft tissues: The soft tissues demonstrate to be unremarkable. IMPRESSION: Mendoza catheter balloon located within the prostate, deflation and further advancement of approximately 3.5 cm could be of assistance. Cholelithiasis. Mild fatty infiltration of the liver. Left Bosniak I benign renal cyst measuring 2.1 cm. No follow-up imaging is recommended. JACR 2017; [id number], Management of the Incidental Renal Mass on CT, [employer] 2020; [id number], B osniak Classification of Cystic Renal Masses, Version 2019. Diffuse anterior spondylosis/bone bridging proximal corresponding to diffuse idiopathic skeletal hype rostosis an/or ankylosis spondylitis is less likely consider. Electronically signed by: Duncan Berry MD 06/08/2024 02:48 AM CDT RP Due to temporary technical issues with the PACS/Fluency reporting system, reports are being signed by the in house radiologist without review as a courtesy to ensure prompt reporting. The interpreting r adiologist is fully responsible for the content of the report.
== END 2024-06-08 03:58 | disposition home or self-care (01) ==
LOC: ER 22:58
DX: T83.098A Other mechanical complication of other urinary catheter, initial encounter (principal); D64.9 Anemia, unspecified; G81.90 Hemiplegia, unspecified affecting unspecified side; E11.40 Type 2 diabetes mellitus with diabetic neuropathy, unspecified; Z79.4 Long term (current) use of insulin; I10 Essential (primary) hypertension; I50.9 Heart failure, unspecified
CPT/HCPCS: 87088; 85025; 81001; 87086; 36415; 83690; 80053; 74177; 51702; Q9967; J2405; J7030

== ENCOUNTER 2024-06-08 23:23 | Inpatient (IN) | payer OTHER ==
[2024-06-09] MEDS ORDERED: MORPHINE 4 MG/ML SYR ONE (00:51)
[2024-06-09] MEDS ORDERED: KETOROLAC 30 MG/ML INJ ONE (00:51)
[2024-06-09] MEDS ORDERED: ONDANSETRON 4 MG/2 ML VIAL ONE (00:51)
[2024-06-09 01:18] LABS: Absolute Basophils 0.1 K/uL (0-0.5); Absolute Eosinophils 0.2 K/uL (0-0.5); Absolute Monocytes 0.7 K/uL (0.1-1.3); Absolute Neutrophil 12.7 K/uL (1.8-8.0); Basophils % 0.4 % (0-1.3); Eosinophils % 1.1 % (0-4.4); Hematocrit 24.8 % (39.6-49.0); Lymphocytes % 6.8 % (15.3-44.8); MCHC 28.1 g/dL (32.0-36.0); MCV 67.4 fL (80-100); MPV 9.8 fL (7.6-11.3); Monocytes % 4.8 % (3.3-12.3); Neutrophils % 86.9 % (41.7-73.7); Platelets 199 thou/uL (152-406); RBC Red Blood Cell Count 3.68 M/uL (4.33-5.43); Red Cell Distribution Width 19.2 % (12.1-15.2)
[2024-06-09 01:29] LABS: Albumin 3.1 g/dL (3.4-5.0); Albumin/Globulin Ratio 0.8 (1.1-1.8); Alkaline Phosphatase 108 U/L (45-117); Anion Gap 3.1 mEq/L (5.0-15.0); BUN Blood Urea Nitrogen 11 mg/dL (7-18); Bicarbonate 37 mEq/L (21-32); Bilirubin Total 0.9 mg/dL (0.2-1.0); Glomerular Filtration Rate 132 ml/min (=/>90); Glucose Level 149 mg/dL (74-106); Lipase 26 U/L (13-75); Potassium 4.1 mEq/L (3.5-5.1); Protein, Total 7.1 g/dL (6.4-8.2); Sodium Level 134 mEq/L (136-145)
[2024-06-09 01:35] LABS: ALT/SGPT < 14 U/L (16-61); AST/SGOT < 10 U/L (15-37)
[2024-06-09 02:11] LABS: Band Neutrophils 5 % (0-1); Differential Total Cells Count 100; Lymphocytes 7 % (15-42); Monocytes 2 % (0-10); Segmented Neutrophils 86 % (40-80)
[2024-06-09 02:12] LABS: Anisocytosis 1+; Blood Morphology Comment NOTED (NOT SEEN); Hypochromasia 2+; Microcytosis 2+; Platelet Estimate ADEQ
--- NOTE | 2024-06-09 03:51 | EDPHYS ---
Physician Documentation [facility] Name: Tej Kumar Age: 58 yrs Sex: Male : 1965 Arrival Date: 06/08/2024 Time: 23:23 Bed 5 Private MD: ED Physician Kp Lopez HPI: 06/09 03:42 This 58 yrs old Male presents to ER via EMS with complaints of Groin Pain. sp4 03:43 58-year-old male chronically immobilized severe physical debility also right above-knee sp4 amputee with indwelling Mendoza catheter presents with EMS for persistent groin pain. Patient was here yesterday for the same problem. CT revealed the patient had Mendoza catheter with the balloon inflated in the prostate. Mendoza catheter was replaced and was found to be draining well. Patient was discharged home. Patient returns today with worsening pain in the groin and pain in the penis. Catheter is draining well at this time. Patient reports significant pain in his groin though. Patient has history of cystoscopy with accidental abrasion over the urethra. Persistent bleeding from genitourinary tract, also complicated UTI Klebsiella UTI, diabetes mellitus, diabetic neuropathy, chronic immobility, congestive heart failure, hypertension, lymphedema, chronic wounds to left lower extremity, right above-knee amputation, indwelling Mendoza catheter, and obstructive sleep apnea. Patient's medications include metformin, calcium carbonate, cholecalciferol, docusate, fluticasone, gabapentin, insulin, tamsulosin, tramadol, furosemide, pregabalin, Entresto, patient's last admission was on 04/07/2024 for persistent hematuria.. Historical: - Allergies: 06/08 23:50 No Known Allergies; jb4 - PMHx: 23:50 CVA; jb4 - Immunization history:: Adult Immunizations up to date. - Infectious Disease History:: Denies. - Social history:: Smoking status: Patient denies any tobacco usage or history of. ROS: 06/09 03:43 Constitutional: Negative for fever, chills, and weight loss, positive pain in the groin sp4 and penis. All other systems are negative, Exam: 03:43 Constitutional: Patient is pale and ill-appearing, moderate to severe physical sp4 debility, chronically immobilized, right above-knee amputation, left lower extremity chronic wounds, chronic left lower extremity lymphedema, indwelling Mendoza catheter, morbidly obese male. Nontoxic-appearing Head/Face: Normocephalic, atraumatic. Eyes: Pupils equal round and reactive to light, extra-ocular motions intact. Lids and lashes normal. Conjunctiva and sclera are not injected. Cornea within normal limits. Periorbital areas with no swelling, redness, or edema. ENT: Nares patent. No nasal discharge, no septal abnormalities noted. Tympanic membranes are normal and external auditory canals are clear. Oropharynx with no redness, swelling, or masses, exudates, or evidence of obstruction, uvula midline. Mucous membranes moist. Neck: Trachea midline, no thyromegaly or masses palpated, and no cervical lymphadenopathy. Supple, full range of motion without nuchal rigidity, or vertebral point tenderness. Chest/axilla: Normal chest wall appearance and motion. Nontender with no deformity. No lesions are appreciated. Cardiovascular: Regular rate and rhythm with a normal S1 and S2. No gallops, murmurs, or rubs. Normal PMI, no JVD. No pulse deficits. Respiratory: Lungs have equal breath sounds bilaterally, clear to auscultation and percussion. No rales, rhonchi or wheezes noted. No increased work of breathing, no retractions or nasal flaring. Abdomen/GI: Soft, with normal bowel sounds. No distension or tympany. No guarding or rebound. No evidence of tenderness throughout. Obese abdomen Back: No spinal tenderness. No costovertebral tenderness. Male : Patient has indwelling Mendoza catheter, uncircumcised male, purulent discharge from urethra, signs of catheter infection, there is also chronic sacral ulcers from persistent immobility. Skin: Warm, dry with normal turgor. Normal color with no rashes, no lesions, and no evidence of cellulitis. Bilateral left lower extremity wounds that are chronic MS/ Extremity: Pulses equal, right above-knee amputation she has been, left lower extremity persistent edema and left lower extremity chronic skin wounds. Neuro: Awake and alert, GCS 15, oriented to person, place, time, and situation. Cranial nerves II-XII grossly intact. Motor strength 5/5 in all extremities. Sensory grossly intact. Psych: Awake, alert, with orientation to person, place and time. Behavior, mood, and affect are within normal limits 03:43 Abdomen/GI: Bedside rectal examination reveals no blood or melena. Normal stool on sp4 exam., Vital Signs: 02:24 BP 123 / 62; Pulse 100; Resp 16; Temp 98.1(TE); Pulse Ox 98% on R/A; jb4 03:00 BP 145 / 72; Pulse 93; Resp 19; Pulse Ox 97% on 3 lpm NC; rg5 04:30 BP 134 / 68; Pulse 94; Pulse Ox 97% on 3 lpm NC; rg5 05:30 BP 134 / 65; Pulse 98; Resp 19; Temp 98; Pulse Ox 97% on 3 lpm NC; rg5 07:18 BP 115 / 66; Pulse 103; Resp 20; Pulse Ox 95% on 3 lpm NC; ph 07:28 Temp 97.9(O); rs5 08:40 BP 121 / 67; Pulse 98; Resp 17; Pulse Ox 96% on R/A; rs5 [place] Coma Score: 06/08 23:45 Eye Response: spontaneous(4). Motor Response: obeys commands(6). Verbal Response: rg5 oriented(5). Total: 15. 06/09 03:43 Eye Response: spontaneous(4). Motor Response: obeys commands(6). Verbal Response: sp4 oriented(5). Total: 15. MDM: 06/08 23:39 Patient medically screened. sp4 06/09 03:42 ED course: EXAM DESCRIPTION: CTABDOMEN PELVIS WITH IV CONTRAST 06/08/2024 2:32 AM CDT sp4 CLINICAL HISTORY: 58 years, Male, Abdominal Pain. COMPARISON: CTAbdomen Pelvis With IV Contrast 03/24/2023. PROCEDURE: Contrast-enhanced images of the abdomen and pelvis were performed from the lung bases to the ischial tuberosities after the administration of IV contrast. In addition multiplanar reformats in the coronal and sagittal plane were obtained and reviewed. An individualized dose optimization technique, Automated Exposure Control, was utilized for the performed procedure. FINDINGS: Lung bases: The lung bases compressive atelectatic changes and mild elevation both hemidiaphragms. Liver: The liver demonstrated presence of decreased attenuation corresponding to mild fatty infiltration. Gallbladder: The gallbladder demonstrates presence of layering high density structures corresponding to cholelithiasis. No significant inflammatory changes and/or biliary duct dilatation. Adrenal glands: The adrenal glands demonstrate to be normal. Pancreas: The pancreas demonstrate to be normal. Spleen: The spleen demonstrate to be within normal limits. Kidneys: The kidneys demonstrate normal uptake of contrast media. There is no evidence for nephrolithiasis and/or hydronephrosis. Small bilateral renal cysts with the largest one anterior upper pole left kidney measuring 2.1 cm on image 31, largest one right kidney upper pole measuring 2 cm on image 24. GI: Grossly the unopacified stomach, small bowel and large bowel demonstrate to be within normal limits. No evidence for bowel dilatation and/or free air. The appendix is normal. The left-sided colon demonstrate to be decompressed with no gross abnormalities. : The urinary bladder demonstrate to be decompressed with presence of a Mendoza catheter with balloon located within the prostate, deflation and further advancement of approximately 3.5 cm could be of assistance. Genitalia: The prostate gland is normal. Abdominal aorta: The aorta demonstrate to be within normal limits. Retroperitoneum:There is no retroperitoneal lymphadenopathy. There is no evidence for ascites and/or abnormal fluid collections. Bones: There is mild diffuse bony osteopenia. There is diffuse anterior spondylosis/bone bridging proximal corresponding to diffuse idiopathic skeletal hyperostosis an/or ankylosis spondylitis is less likely consider. Soft tissues: The soft tissues demonstrate to be unremarkable. IMPRESSION: Mendoza catheter balloon located within the prostate, deflation and further advancement of approximately 3.5 cm could be of assistance. Cholelithiasis. Mild fatty infiltration of the liver. Left Bosniak I benign renal cyst measuring 2.1 cm. No follow-up imaging is recommended. Classification of Cystic Renal Masses, Version 2019. Diffuse anterior spondylosis/bone bridging proximal corresponding to diffuse idiopathic skeletal hyperostosis an/or ankylosis spondylitis is less likely consider.. 03:43 Differential diagnosis: nonspecific abdominal pain, urinary retention, Mendoza catheter sp4 problem, prostatitis, urethritis. Data reviewed: vital signs, nurses notes, EMS record, old medical records, lab test result(s), radiologic studies, CT scan. Consideration of Admission/Observation Patient was admitted/placed on observation. Escalation of care including admission/observation considered. Management of patient was discussed with the following: Primary Care Provider: Noelle SMITH . ED course: Based on a CAT scan report yesterday Mendoza catheter was in the prostate. With balloon inflated in the prostate. Yesterday on exam Mendoza catheter was exchanged for a new one and catheter was draining well. Today catheter was exchanged again for size 18 Mendoza catheter. Also based on labs patient's hemoglobin decreased from 7.2 down to 7. At this time patient warrants admission for transfusion of 2 units of blood. Based on the rectal exam there is no active GI bleeding, no active bleeding as well. Patient stable for admission to his disk operator Dr. Drake. 06/08 23:39 Order name: CBC with Diff; Complete Time: 02:41 sp4 06/08 23:39 Order name: CMP; Complete Time: 02:41 sp4 06/08 23:39 Order name: Lipase; Complete Time: 02:41 sp4 06/09 01:29 Order name: Manual Differential; Complete Time: 02:41 EDMS 06/09 02:41 Order name: Urinalysis W/Microscopic sp4 06/09 03:01 Order name: PRBC [facility] 06/09 03:02 Order name: Type And Screen [facility] 06/09 03:04 Order name: ABO/RH typing [facility] 06/09 03:04 Order name: Antibody Screen [facility] 06/09 03:36 Order name: CONS Physician Consult [facility] 06/08 23:39 Order name: IV Saline Lock; Complete Time: 01:13 sp4 06/08 23:39 Order name: Labs collected and sent; Complete Time: 01:13 sp4 Administered Medications: 00:45 Drug: morphine IVP or IV 4 mg IVP once over 4 mins Route: IVP; Infused Over: 4 mins; rg5 Site: left antecubital; 07:17 Follow up: Response: No adverse reaction; Pain is decreased rg5 00:45 Drug: Ketorolac IVP 30 mg IVP once Route: IVP; Site: left antecubital; rg5 07:17 Follow up: Response: No adverse reaction rg5 00:45 Drug: Ondansetron IVP 4 mg IVP once; over 2 minutes Route: IVP; Site: left antecubital; rg5 07:17 Follow up: Response: No adverse reaction rg5 03:50 Drug: Acetaminophen PO 1000 mg PO once Route: PO; rg5 07:16 Follow up: Response: No adverse reaction; Pain is decreased rg5 03:50 Drug: diphenhydrAMINE PO 25 mg PO once Route: PO; rg5 07:16 Follow up: Response: No adverse reaction rg5 03:55 Drug: Piperacillin-Tazobactam IVPB 3.375 grams IVPB once over 60 mins; (mix in NS 100 rg5 mL) Route: IVPB; Infused Over: 60 mins; Site: left antecubital; 07:17 Follow up: Response: No adverse reaction; IV Status: Completed infusion; IV Intake: rg5 100ml Disposition Summary: 06/09/24 03:51 Hospitalization Ordered Notes: Hospitalization Status: Observation sp4 Provider: Zhou Drake sp4 Location: Telemetry/[facility]Sur (observation) sp4 Condition: Fair sp4 Problem: new sp4 Symptoms: have improved sp4 Bed/Room Type: Standard sp4 Room Assignment: 416(06/09/24 06:26) Diagnosis - Symptomatic anemia, chronic microcytic anemia, acute cystitis, multidrug-resistant sp4 UTI. Forms: - Medication Reconciliation Form sp4 - SBAR form sp4 - Leadership Thank You Letter sp4 Signatures: Dispatcher [employer] EDMS Chuyita Layne, RN RN kl Ravinder Alexander RN RN jb4 Kp Lopez MD MD sp4 Aakash Bettencourt RN RN rg5 Corrections: (The following items were deleted from the chart) 06/08 23:40 23:40 CBC+H.LAB.BRZ ordered. EDMS EDMS 23:40 23:40 COMPREHENSIVE METABOLIC PANEL+C.LAB.BRZ ordered. EDMS EDMS 23:40 23:40 LIPASE+C.LAB.BRZ ordered. EDMS EDMS 06/09 03:05 02:41 Abdomen Pelvis Wo Con+CT.RAD.BRZ ordered. EDMS EDMS 06:26 03:51 sp4 kl
--- NOTE | 2024-06-09 03:51 | ER ---
Nurse's Notes [facility] Name: Tej Kumar Age: 58 yrs Sex: Male : 1965 Arrival Date: 06/08/2024 Time: 23:23 Bed 5 Private MD: Diagnosis: Symptomatic anemia, chronic microcytic anemia, acute cystitis, multidrug-resistant UTI. Presentation: 06/08 23:58 Chief complaint: EMS states: Pt called reporting abdominal pain and groin pain. jb4 paralyzed from the neck down. On 2L NC at home. Placed on 5L NC enroute. Coronavirus screen: At this time, the client does not indicate any symptoms associated with coronavirus-19. Ebola Screen: No symptoms or risks identified at this time. Initial Sepsis Screen: Does the patient meet any 2 criteria? No. Patient's initial sepsis screen is negative. Does the patient have a suspected source of infection? No. Patient's initial sepsis screen is negative. Risk Assessment: Do you want to hurt yourself or someone else? Patient reports no desire to harm self or others. Onset of symptoms was June 09, 2024. Transition of care: patient was not received from another setting of care. 23:58 Method Of Arrival: EMS: [facility] jb4 23:58 Acuity: DAVID 3 jb4 Historical: - Allergies: 23:50 No Known Allergies; jb4 - PMHx: 23:50 CVA; jb4 - Immunization history:: Adult Immunizations up to date. - Infectious Disease History:: Denies. - Social history:: Smoking status: Patient denies any tobacco usage or history of. Screenin:45 [facility] ED Fall Risk Assessment (Adult) History of falling in the last 3 months, rg5 including since admission No falls in past 3 months (0 pts) Confusion or Disorientation No (0 pts) Intoxicated or Sedated No (0 pts) Impaired Gait Yes (1 pt) Mobility Assist Device Used Yes (1 pt) Altered Elimination Yes (1 pt) Score/Fall Risk Level 3 or more points = High Risk Oriented to surroundings, Maintained a safe environment, Educated pt \T\ family on fall prevention, incl call for assistance when getting out of bed, Hourly rounding (assess needs \T\ fall precautionary measures) done. Abuse screen: Denies threats or abuse. Nutritional screening: No deficits noted. Tuberculosis screening: Assessment: 23:45 General: Appears uncomfortable, Behavior is calm, cooperative, appropriate for age. rg5 23:45 Pain: Complains of pain in pelvis Pain currently is 8 out of 10 on a pain scale. rg5 Quality of pain is described as aching, Pain began 1 day ago. Is intermittent. Neuro: Level of Consciousness is awake, alert, obeys commands, Oriented to person, place, time, [employer] are weak bilaterally. Cardiovascular: Capillary refill is > 3 seconds Patient's skin is warm and dry. Respiratory: Airway is patent Trachea midline Respiratory effort is even, unlabored, Respiratory pattern is regular, symmetrical. GI: Abdomen is round obese. : Mendoza in place to gravity drainage. EENT: No deficits noted. Derm: Skin is intact, Skin is dry, Skin is normal. Musculoskeletal: Amputation of right leg. Swelling. 06/09 00:30 Reassessment: No changes from previously documented assessment. Patient and/or family rg5 updated on plan of care and expected duration. Pain level reassessed. 01:00 Reassessment: No changes from previously documented assessment. Patient and/or family rg5 updated on plan of care and expected duration. Pain level reassessed. Patient is alert, oriented x 3, equal unlabored respirations, skin warm/dry/pink. 02:30 Reassessment: Patient and/or family updated on plan of care and expected duration. Pain rg5 level reassessed. Patient is alert, oriented x 3, equal unlabored respirations, skin warm/dry/pink. 03:35 Reassessment: No changes from previously documented assessment. Patient and/or family rg5 updated on plan of care and expected duration. Pain level reassessed. Patient is alert, oriented x 3, equal unlabored respirations, skin warm/dry/pink. 04:30 Reassessment: Patient and/or family updated on plan of care and expected duration. Pain rg5 level reassessed. Patient is alert, oriented x 3, equal unlabored respirations, skin warm/dry/pink. 05:30 Reassessment: No changes from previously documented assessment. Patient and/or family rg5 updated on plan of care and expected duration. Pain level reassessed. 07:01 Reassessment: Patient and/or family updated on plan of care and expected duration. Pain rs5 level reassessed. Patient is alert, oriented x 3, equal unlabored respirations, skin warm/dry/pink. Patient denies pain at this time. Cardiovascular: Patient's skin is warm and dry. Respiratory: Airway is patent Respiratory effort is even, unlabored, Respiratory pattern is regular, symmetrical. 08:40 Reassessment: Patient and/or family updated on plan of care and expected duration. Pain rs5 level reassessed. Patient is alert, oriented x 3, equal unlabored respirations, skin warm/dry/pink. Blood transfusion complete \T\0840, IV line flushed, see paper charting for more information. Vital Signs: 02:24 BP 123 / 62; Pulse 100; Resp 16; Temp 98.1(TE); Pulse Ox 98% on R/A; jb4 03:00 BP 145 / 72; Pulse 93; Resp 19; Pulse Ox 97% on 3 lpm NC; rg5 04:30 BP 134 / 68; Pulse 94; Pulse Ox 97% on 3 lpm NC; rg5 05:30 BP 134 / 65; Pulse 98; Resp 19; Temp 98; Pulse Ox 97% on 3 lpm NC; rg5 07:18 BP 115 / 66; Pulse 103; Resp 20; Pulse Ox 95% on 3 lpm NC; ph 07:28 Temp 97.9(O); rs5 08:40 BP 121 / 67; Pulse 98; Resp 17; Pulse Ox 96% on R/A; rs5 [place] Coma Score: 06/08 23:45 Eye Response: spontaneous(4). Motor Response: obeys commands(6). Verbal Response: rg5 oriented(5). Total: 15. 06/09 03:43 Eye Response: spontaneous(4). Motor Response: obeys commands(6). Verbal Response: sp4 oriented(5). Total: 15. ED Course: 06/08 23:24 Patient arrived in ED. jj6 23:38 Kp Lopez MD is Attending Physician. sp4 23:45 Patient has correct armband on for positive identification. Fall risk band placed. rg5 Placed in gown. Bed in low position. Call light in reach. Side rails up X2. Adult w/ patient. Door closed. Noise minimized. Warm blanket given. PO fluids given. Head of bed elevated. 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 rg5 23:58 Arm band placed on right wrist. jb4 06/09 00:00 Triage completed. jb4 03:00 Patient admitted, IV remains in place. rg5 03:03 Aakash Bettencourt, RN is Primary Nurse. rg5 03:10 Provided Education on: Blood Transfusion. rg5 03:20 Consent for blood and/or blood product transfusion explained by physician, signed by rg5 spouse. 03:50 Zhou Drake MD is Hospitalizing Provider. sp4 03:50 Inserted saline lock: 20 gauge in left antecubital area, using aseptic technique. Blood rg5 collected. Flushed with 10 mL NS. 04:00 Mendoza cath inserted, using sterile technique, 18 Fr., by me, balloon inflated, to rg5 gravity drainage, urine specimen collected. Patient tolerated well. 08:40 Patient admitted, IV remains in place. rs5 Administered Medications: 00:45 Drug: morphine IVP or IV 4 mg IVP once over 4 mins Route: IVP; Infused Over: 4 mins; rg5 Site: left antecubital; 07:17 Follow up: Response: No adverse reaction; Pain is decreased rg5 00:45 Drug: Ketorolac IVP 30 mg IVP once Route: IVP; Site: left antecubital; rg5 07:17 Follow up: Response: No adverse reaction rg5 00:45 Drug: Ondansetron IVP 4 mg IVP once; over 2 minutes Route: IVP; Site: left antecubital; rg5 07:17 Follow up: Response: No adverse reaction rg5 03:50 Drug: Acetaminophen PO 1000 mg PO once Route: PO; rg5 07:16 Follow up: Response: No adverse reaction; Pain is decreased rg5 03:50 Drug: diphenhydrAMINE PO 25 mg PO once Route: PO; rg5 07:16 Follow up: Response: No adverse reaction rg5 03:55 Drug: Piperacillin-Tazobactam IVPB 3.375 grams IVPB once over 60 mins; (mix in NS 100 rg5 mL) Route: IVPB; Infused Over: 60 mins; Site: left antecubital; 07:17 Follow up: Response: No adverse reaction; IV Status: Completed infusion; IV Intake: rg5 100ml Medication: 06/08 23:45 VIS not applicable for this client. rg5 Intake: 06/09 07:17 IV: 100ml; Total: 100ml. rg5 Outcome: 03:51 Decision to Hospitalize by Provider. sp4 08:40 Admitted to ER Hold. Please see [facility] for further documentation. rs5 08:40 Condition: stable 08:40 Instructed on the need for admit, Demonstrated understanding of instructions, Signatures: Yana Rosenbaum RN RN ph Ravinder Alexander, RN RN jb4 Radha [id number] Aiden Tadeo RN RN rs5 Kp Lopez MD MD sp4 Aakash Bettencourt RN RN rg5 Corrections: (The following items were deleted from the chart) 07:40 06:12 Admitted to rg5 rs5 09:08 07:39 Admitted to ER Hold. Please see [facility] for further documentation. rs5 rs5 09:08 07:39 Condition: stable rs5 rs5 09:08 07:39 Instructed on the need for admit, Demonstrated understanding of instructions, rs5 rs5 09:08 08:40 Patient left the ED. rs5 09:09 07:39 Patient admitted, IV remains in place. rs5 rs5
[2024-06-09] MEDS ORDERED: NA CHLORIDE 0.9% 250 ML ONE (04:02)
[2024-06-09] MEDS ORDERED: DIPHENHYDRAMINE 25 MG TAB/CAP ONE (04:02)
[2024-06-09] MEDS ORDERED: ACETAMINOPHEN 500 MG TAB ONE (04:02)
[2024-06-09] MEDS ORDERED: NA CHLORIDE 0.9% 100 ML ONE (04:03)
[2024-06-09] MEDS ORDERED: PIPERACIL/TAZO 3.375 GM VIAL IV ONE (04:03)
[2024-06-09 06:07] LABS: Sqamous Epithelial None Seen /HPF (None Seen); Urine Bacteria None Seen /HPF (<20); Urine Culture Reflex Order REFLEXED; Urine Micro Reflex YN NO BILL MICROSCOPIC; Urine Mucus 4+ /HPF (None Seen); Urine RBC >50 /HPF (None Seen); Urine WBC >50 /HPF (<5)
[2024-06-09 06:08] LABS: Specific Gravity > 1.030 (1.005-1.030); Urine Bilirubin 1+ (Negative); Urine Blood 1+ (Negative); Urine Clarity Extremely Turbid (Clear); Urine Color Orange (Yellow); Urine Glucose Negative (Negative); Urine Ketones Negative (Negative)
[2024-06-09 06:09] LABS: Urine Nitrite Negative (Negative); Urine Protein 1+ (Negative); Urine Urobilinogen 3+ (Normal)
[2024-06-09] MEDS ORDERED: ACETAMINOPHEN 325 MG TABLET PO PRN (09:15)
[2024-06-09] MEDS: INSULIN REGULAR (HUMAN) 100 UNIT/ML SQ SCH (09:15)
[2024-06-09] MEDS ORDERED: D50W 25 GM/50 ML SYRINGE IV PRN (09:15)
[2024-06-09] MEDS ORDERED: ONDANSETRON 4 MG/2 ML VIAL IV PRN (09:15)
[2024-06-09] MEDS ORDERED: ALBUTEROL 2.5 MG/3 ML NEB SOL NEB PRN (09:15)
[2024-06-09] MEDS ORDERED: GLUCAGON 1 MG/VIAL IM PRN (09:15)
[2024-06-09] MEDS ORDERED: D10W 125 ML IV PRN (09:36)
[2024-06-09] MEDS: NA CHLORIDE 0.9% 1,000 ML IV SCH (11:11)
--- NOTE | 2024-06-09 12:34 | P.HP ---
Certification for Inpatient Patient admitted to: Inpatient With expected LOS: >2 Midnights Practitioner: I am a practitioner with admitting privileges, knowledge of patient current condition, hospital course, and medical plan of care. Services: Services provided to patient in accordance with Admission requirements found in Title 42 Section 412.3 of the Code of Federal Regulations Patient History Date of Service: 06/09/24 Primary Care Provider: Noelle Reason for admission: Anemia History of Present Illness: Aquilino is an office patient of [facility]. He has a history of dm2, PVD. Chronic indwelling cather. Comes in with anemia. He has difficulty staying awake. Got a lot of sedatives in the ER. He has signs of infection/hematuria. Do not know if he has an PUD like symptoms. He is currently awaiting a transfusion Patient was in the ER the last 2 days compliainting of pain in the groin. He initially had his prajapati cath replaced. However he came back with the same groin pain today Allergies No Known Drug Allergies Allergy (Verified 03/24/23 00:07) Unknown Home Medications: Metformin HCl [Glucophage*] 500 mg PO DAILY 03/24/23 Calcium Carbonate [Oyster Shell Calcium] 500 mg PO DAILY 01/12/24 Aspirin [Vazalore] 81 mg PO DAILY 06/09/24 Lisinopril [Zestril] 2.5 mg PO DAILY 06/09/24 Pregabalin [Lyrica*] 300 mg PO BEDTIME 06/09/24 - Past Medical/Surgical History Diabetic: Yes -: IDDM -: Lymphedema -: Morbid Obesity -: Kidney stones -: severe neuropathy -: Rt AKA - Social History Alcohol use: No CD- Drugs: No Caffeine use: No Review of Systems is unable to be obtained Physical Examination - Vital Signs Temperature: 97.9 F Blood Pressure: 115/66 Pulse: 103 Respirations: 20 Pulse Ox (%): 89 - Physical Exam General: Confused HEENT: Atraumatic, PERRLA, Mucous membr. moist/pink, EOMI, Sclerae nonicteric Neck: Supple, 2+ carotid pulse no bruit, No LAD, Without JVD or thyroid abnormality Respiratory: Clear to auscultation bilaterally, Normal air movement Cardiovascular: Regular rate/rhythm, Normal S1 S2 Gastrointestinal: Normal bowel sounds, No tenderness Musculoskeletal: No tenderness Integumentary: No rashes Neurological: Normal gait, Normal speech, Normal strength at 5/5 x4 extr, Normal tone, Normal affect Lymphatics: No axilla or inguinal lymphadenopathy - Studies Laboratory Data (last 24 hrs) 06/09/24 06/09/24 00:40 00:40 WBC 14.60 H Hgb 7.0 L Hct 24.8 L Plt Count 199 Sodium 134 L Potassium 4.1 BUN 11 Creatinine 0.35 L Glucose 149 H Total Bilirubin 0.9 AST < 10 L ALT < 14 L Alkaline Phosphatase 108 Lipase 26 Assessment and Plan - Problems (Diagnosis) (1) Complicated UTI (urinary tract infection) Current Visit: No Status: Acute Plan: Will start the patient on levaquin. Order blood cultures. Consult to Dr. Skinner (2) Diabetic neuropathy associated with type 2 diabetes mellitus Current Visit: No Status: Acute Plan: will restart his lyrica. ISS low dose, diabetic diet Qualifiers: Qualified Code(s): E11.42 - Type 2 diabetes mellitus with diabetic poly neuropathy (3) Anemia Current Visit: Yes Status: Acute Plan: transfusion order. Will order reticulocyte and iron studies. Most likely sources was hematuria. Check stool for guiac. Will keep him on lovenox as the patient is a high risk for DVT being this anemic Qualifiers: Anemia type: iron deficiency Iron deficiency anemia type: chronic blood loss Qualified Code(s): D50.0 - Iron deficiency anemia secondary to blood loss (chronic) - Advance Directives Does patient have a Living Will: No Does patient have a Durable POA for Healthcare: No
[2024-06-09] MEDS: NA CHLORIDE 0.9% 500 ML ONE (13:02)
[2024-06-09 13:34] LABS: RBC Red Blood Cell Count 3.84 M/uL (4.33-5.43)
[2024-06-09 14:04] LABS: Ferritin 9.5 ng/mL (26-388)
[2024-06-09] MEDS: PREGABALIN 75 MG CAP PO SCH (17:12)
[2024-06-09] MEDS: ENOXAPARIN 40 MG/0.4 ML SQ SCH (17:13)
[2024-06-09] MEDS: Levofloxacin 750mg IV 750 MG/150 ML BAG IV SCH (17:14)
[2024-06-09] MEDS: FUROSEMIDE 40 MG/4 ML VIAL IV ONE (17:50)
[2024-06-09 18:14] LABS: Specific Gravity 1.029 (1.005-1.030); Sqamous Epithelial None Seen /HPF (None Seen); Urine Bacteria <20 /HPF (<20); Urine Bilirubin NEGATIVE (Negative); Urine Blood Negative (Negative); Urine Clarity Extremely Turbid (Clear); Urine Color Dark-Yellow (Yellow); Urine Culture Reflex Order NOT NEEDED; Urine Glucose NEGATIVE (Negative); Urine Ketones NEGATIVE (Negative); Urine Microscopic Reflex YN ORDER UMIC; Urine Nitrite NEGATIVE (Negative); Urine Protein 1+ (Negative); Urine Urobilinogen 2+ (Normal); Urine WBC None Seen /HPF (<5)
[2024-06-09 19:09] LABS: Hematocrit 27.6 % (39.6-49.0); Hemoglobin 7.8 g/dL (13.6-17.9)
[2024-06-09] MEDS: MORPHINE 4 MG/ML SYR IV PRN (20:58)
[2024-06-09] MEDS ORDERED: PREGABALIN 75 MG CAP PO SCH (21:00)
[2024-06-09] MEDS: ZOLPIDEM TARTRATE 5 MG TABLET PO PRN (22:03)
[2024-06-10] MEDS: PANTOPRAZOLE 40MG TABLET PO SCH (06:38)
[2024-06-10 07:53] LABS: Absolute Basophils 0.1 K/uL (0-0.5); Absolute Neutrophil 16.6 K/uL (1.8-8.0); Basophils % 0.5 % (0-1.3); Eosinophils % 0.1 % (0-4.4); Hematocrit 26.3 % (39.6-49.0); Hemoglobin 7.5 g/dL (13.6-17.9); Lymphocytes % 5.2 % (15.3-44.8); MCH 20.3 pg (27.0-35.0); MCHC 28.6 g/dL (32.0-36.0); MCV 70.8 fL (80-100); MPV 9.1 fL (7.6-11.3); Monocytes % 5.2 % (3.3-12.3); Nucleated Red Blood Cells % 0.1 % (0-0); Platelets 220 thou/uL (152-406); RBC Red Blood Cell Count 3.72 M/uL (4.33-5.43); Red Cell Distribution Width 20.8 % (12.1-15.2)
[2024-06-10 07:59] LABS: Anion Gap 4.8 mEq/L (5.0-15.0); Potassium 3.8 mEq/L (3.5-5.1)
--- NOTE | 2024-06-10 08:50 | P.PN ---
Subjective Date of Service: 06/10/24 Primary Care Provider: Noelle Chief Complaint: Anemia Subjective: No new changes patient difficulty to arouse Review of Systems 10-point ROS is otherwise unremarkable General: Fever, Sweats Neurological: Other (difficult to arouse) Physical Examination - Vital Signs Temperature: 98.3 F Blood Pressure: 104/48 Pulse: 104 Respirations: 20 Pulse Ox (%): 93 - Physical Exam General: Confused HEENT: Atraumatic, PERRLA, EOMI Neck: Supple, JVD not distended Respiratory: Clear to auscultation bilaterally, Normal air movement Cardiovascular: Regular rate/rhythm, Normal S1 S2 Gastrointestinal: Normal bowel sounds, No tenderness Musculoskeletal: No tenderness Integumentary: No rashes Neurological: Normal speech, Normal tone, Normal affect Lymphatics: No axilla or inguinal lymphadenopathy Assessment And Plan - Current Problems (Diagnosis) (1) Complicated UTI (urinary tract infection) Current Visit: No Status: Acute Plan: Will start the patient on levaquin. Order blood cultures. Consult to Dr. Skinner wbc is elevated. will add meropenem (2) Diabetic neuropathy associated with type 2 diabetes mellitus Current Visit: No Status: Acute Plan: will restart his lyrica. ISS low dose, diabetic diet Qualifiers: (3) Anemia Current Visit: Yes Status: Acute Plan: transfusion order. Will order reticulocyte and iron studies. Most likely sources was hematuria. Check stool for guiac. Will keep him on lovenox as the patient is a high risk for DVT being this anemic no improvement. Will transfuse 1 more unit of prbc. Qualifiers: Anemia type: iron deficiency Iron deficiency anemia type: chronic blood loss Qualified Code(s): D50.0 - Iron deficiency anemia secondary to blood loss (chronic) Discharge Plan: Home Plan to discharge in: 24 Hours - Code Status/Comfort Care Code Status Assessed: No Physician Review: Patient Assessed, Agree with Above Assessment and Plan Critical Care: No Time Spent Managing PTS Care (In Minutes): 30
[2024-06-10] MEDS ORDERED: ACETAMINOPHEN 500 MG TAB PO PRN (08:51)
[2024-06-10] MEDS: lisinopriL 5 MG TAB PO SCH (09:00)
[2024-06-10] MEDS: CALCIUM CARBONATE 500 MG TAB PO SCH (09:00)
--- OUTSIDE RECORDS SUMMARY | 2024-06-10 09:15 | XMS REPORT | Continuity of Care Document ---
Author Name Unknown Address [address] [facility] [address] [place] [address] [facility] thconnect Address [address] [facility]. [address] [place] [address] Care Team Providers Care Retail Director Name Role Phone RIGOBRANDIN Primary Care Physician Unavailab ADA Mckeon Attending Clinician Unavail able ADA ROBBINS Attending Clinician Unavail able Tania Zimmerman Yijia Attending Clinician Unavailab May Carrasquillo Anavella Attending Cli JEANNIE Payne Attending Clinician Unavaila JULISA Maguire Attending Clinician Unavailabl e Doctor Unassigned, [place] Attending Clinician U jdable Veronica Truong PTA Attending Clinician Unavail able Julisa Duran MD Attending Clinician Logan Lance MD Attending Clinician [phone] Niyah Mckeon PT Attending Clinician Un available LOGAN LANCE Attending Clinician KATE Sandoval Attending Clinician Unavailable Nicolasa Castillo PT Attending Clinician Unavailab Tania Murcia Yijia Admitting Clinician Unavailab Marianne Carrasquillo, Reev Admitting Clinician U navailerika Payers Payer Name Policy Type Policy Number Effective Date Expirati on Date Source MEDICARE PART A \T\ B [id number] 2017 00:00:00 [facility] [id number] Problems Condition Name Condition Details Condition Category Status Onset Date Resolution Date Last Treatment Date Treating Clinician Comments Source Chronic edema Chronic edema Disease Active 2019-10 00:00: 00 [facility] Hx of AKA (above knee amputation ), 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 ), right Disease Active 2019-10 00:00: 00 [facility] Balanitis Balanitis Problem Comm on [facility] [id number] 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 Problem [facility] [id number] Acquired phimosis of penis Problem [facility] Leukoplaki a of penis BXO (balanitis xerotica obliterans ) Problem [facility] Allergies, Adverse Reactions, Alerts Allergy Name Allergy Type Status Severity Reaction(s) Onset Date Inactive Date Treating Clinician Comments Source NO KNOWN ALLERGIE S Drug Class Active [facility] Social History Social Habit Start Date Stop Date Quantity Comments Source History of Tobacco Use [facility] Sex Assigned At [facility] Alcohol intake 2020-06-25 00:00:00 2020-06-25 00:00:00 Ex-drinker (finding) [facility] Tobacco use and exposure 2019-11-25 00:00:00 2019-11-25 00:00:00 Smokeless tobacco non-user [facility] Smoking Status Start Date Stop Date Source Unknown if ever smoked [facility] Former Smoker 2024-05-11 00:00:00 2024-05-11 00:00:00 [facility] Never smoked tobacco [facility] Medications Ordered Medication Name Filled Medication Name Start Date Stop Date Current Medication? Ordering Clinician Indication Dosage Frequency Signature (SIG) Comments Components Source GLIPIZIDE 10 mg tablet 2020-10 0-26 00:00: 00 Yes [id number] TAKE ONE TABLET BY MOUTH DAILY [facility] GLIPIZIDE 10 mg tablet 2020-10 0-19 00:00: 00 Yes [id number] TAKE ONE TABLET BY MOUTH DAILY [facility] PIOGLITAZON E 30 mg tablet 07-15 00:00: 00 Yes TAKE ONE TABLET BY MOUTH DAILY [facility] TRIAMTERENE -HYDROCHLOR OTHIAZIDE 37.5-25 mg per capsule 07-15 00:00: 00 Yes [id number] TAKE ONE CAPSULE BY MOUTH EVERY MORNING [facility] BUMETANIDE 1 mg tablet 07-15 00:00: 00 Yes [id number] TAKE ONE TABLET BY MOUTH DAILY [facility] metFORMIN 500 mg tablet 06-25 00:00: 00 Yes [id number] TAKE ONE TABLET BY MOUTH TWICE A DAY WITH MEALS [facility] ATORVASTATI N 40 mg tablet 06-13 00:00: 00 Yes TAKE ONE TABLET BY MOUTH AT BEDTIME [facility] GLIPIZIDE 10 mg tablet 06-10 00:00: 00 08-13 00:00 :00 No [id number] TAKE ONE TABLET BY MOUTH DAILY [facility] BUMETANIDE 1 mg tablet 05-21 00:00: 00 Yes [id number] TAKE ONE TABLET BY MOUTH DAILY [facility] TRIAMTERENE -HYDROCHLOR OTHIAZIDE 37.5-25 mg per capsule 05-21 00:00: 00 Yes [id number] TAKE ONE CAPSULE BY MOUTH EVERY MORNING [facility] KCL 10 mEq tablet 05-15 00:00: 00 Yes [id number] TAKE ONE TABLET BY MOUTH DAILY [facility] metFORMIN 500 mg tablet 04-15 00:00: 00 06-25 00:00 :00 No [id number] TAKE ONE TABLET BY MOUTH TWICE A DAY WITH MEALS [facility] PIOGLITAZON E 30 mg tablet 16 00:00: 00 Yes TAKE ONE TABLET BY MOUTH DAILY [facility] exenatide microsphere s (BYDUREON) 2 mg/0.65 mL injection 4- 00:00: 00 Yes [id number] 2mg inject 0.65 mL under the skin weekly. [facility] traMADoL 50 mg tablet 01-11 00:00: 00 Yes [id number] 50mg Take 1 tablet by mouth every 6 (six) hours as needed for Pain (scale 4-6). Indication s: acute pain [facility] exenatide microsphere s 2 mg injection 01-11 00:00: 00 Yes [id number] 2mg inject 2 mg under the skin every 7 (seven) days. [facility] traMADol 50 mg tablet 12-21 00:00: 00 Yes [id number] 50mg Take 1 tablet by mouth every 6 (six) hours as needed (pain). [facility] exenatide microsphere s 2 mg injection 12-21 00:00: 00 Yes [id number] 2mg inject 2 mg under the skin every 7 (seven) days. [facility] metFORMIN 500 mg tablet 11-25 20:46: 55 Yes 500mg Take 500 mg by mouth 2 (two) times daily with meals. [facility] atorvastati n 40 mg tablet 11-25 20:46: 55 Yes 40mg Take 40 mg by mouth at bedtime. [facility] pioglitazon e 30 mg tablet 11-25 20:46: 55 Yes 30mg Take 30 mg by mouth daily. [facility] glipiZIDE 10 mg tablet 11-25 20:46: 55 Yes 10mg Take 10 mg by mouth daily. [facility] amoxicillin -clavulanat e (AUGMENTIN) 875-125 mg per tablet 11-25 00:00: 00 12-21 00:00 :00 No [id number] 1{tbl} Take 1 tablet by mouth 2 (two) times daily. [facility] sulfamethox azole-trime thoprim 800-160 mg per tablet 11-25 00:00: 00 12-21 00:00 :00 No [id number] 1{tbl} Take 1 tablet by mouth 2 (two) times daily. [facility] traMADol 50 mg tablet 11-25 00:00: 00 12-21 00:00 :00 No [id number] 50mg Take 1 tablet by mouth every 6 (six) hours as needed (pain). [facility] Furosemide 40 MG Furosemide 40 MG No [...] MG No known medications No Un senthil [facility] Vital Signs Vital Name Observation Time Observation Value Comments S ource height 2024-02-17 13:30:00 72 [in_i] Commo n [facility] weight 2024-02-17 13:30:00 340.0 [lb_av] Co mmon [facility] temperature 2024-02-17 13:30:00 98.5 [degF] Com mon [facility] bmi 2024-02-17 13:30:00 46.11 kg/m2 Comm on [facility] oximetry 2024-02-17 13:30:00 95 % Commo n [facility] respiratory rate 2024-02-17 13:30:00 16 /min [facility] blood pressure systolic 2024-02-17 13:30:00 173 mm[Hg] [facility] blood pressure diastolic 2024-02-17 13:30:00 83 mm[Hg] [facility] Systolic blood pressure 2019-12-21 17:49:00 110 mm[Hg] [facility] Diastolic blood pressure 2019-12-21 17:49:00 41 mm[Hg] [facility] Heart rate 2019-12-21 17:49:00 79 /[facility] Body temperature 2019-12-21 17:49:[address] [facility] Respiratory rate 2019-12-21 17:49:00 18 /min [facility] Procedures Procedure Date / Time Performed Performing Clinician Source REFERRAL- REQUEST/RESPONSE 2023-04-20 05:01:00 Doctor Unassigned, [place] [facility] ASSIGNMENT OF BENEFITS 2022-03-26 12:52:53 Docto r Unassigned, [place] [facility] REFERRAL- REQUEST/RESPONSE 2022-03-12 05:01:00 Doctor Unassigned, [place] [facility] PATIENT QUESTIONNAIRE 2019-11-22 06:01:00 Doctor Unassigned, [place] [facility] REFERRAL- REQUEST/RESPONSE 2019-11-11 06:01:00 Doctor Unassigned, [place] [facility] Encounters Start Date/Time End Date/Time Encounter Type Admission Type Attending [facility] Care Facility Care Department Encounter ID Source 2024-04-13 11:58:00 Outpatient [facility] [id number] [facility] 2024-02-17 12:35:00 Outpatient [facility] [id number] [facility] 2021-08-23 14:59:58 Emergency [facility] [id number] [facility] 2024-05-11 00:00:00 2024-05-11 00:00:00 ([place]) Nurse Visit [facility] [id number] [facility] 2024-04-08 11:00:00 2024-04-08 11:00:00 Outpatient ADA AGUIRRE HOWARD [facility] [id number] [facility] 2024-04-06 00:00:00 2024-04-06 00:00:00 (TEL) [facility]C ST[facility] [id number] [facility] 2024-03-07 00:00:00 2024-03-07 00:00:00 ([place]) Nurse Visit [facility] [id number] [facility] 2024-02-29 00:00:00 2024-02-29 00:00:00 (TEL) [facility]MLC ST[facility] [id number] [facility] 2024-02-23 00:00:00 2024-02-23 00:00:00 ([place]) Nurse Visit [facility] [id number] [facility] 2024-02-17 00:00:00 2024-02-17 00:00:00 OFFICE VISIT ESTAB PT LEVEL 3 [facility] [id number] [facility] 2024-01-13 18:01:00 2024-01-30 11:57:00 Inpatient 3 Tania Zimmerman E[facility] SCN [id number] [facility] 2023-11-07 22:28:00 2023-11-23 15:20:00 Inpatient 3 Yvette escoto Reeray E[facility] EULALIO [id number] [facility] 2023-06-05 08:45:00 2023-06-05 08:45:00 Outpatient JULISA AREVALO [facility] [id number] [facility] 2023-04-20 00:00:00 2023-04-20 00:00:00 Orders Only Doctor Unassigned, [place] [facility] .840.114 350.1.13.10 4.2.7.2.686 [id number] [facility] 2023-04-14 00:00:00 2023-04-14 00:00:00 Telephone Veronica Truong [facility] .840.114 350.1.13.10 4.2.7.2.686 [id number] [facility] 2022-08-21 08:00:00 2022-08-21 09:19:07 Outpatient JULISA AREVALO [facility] [id number] [facility] 2022-08-21 08:00:00 2022-08-21 09:19:07 Ancillary Visit Veronica Truong Mary Julisa L [facility] BUILDING 1.2.840.114 350.1.13.10 4.2.7.2.686 [id number] [facility] 2022-08-14 08:00:00 2022-08-14 09:36:02 Ancillary Visit Veronica Truong Julisa Guzmán [facility] BUILDING 1.2.840.114 350.1.13.10 4.2.7.2.686 [id number] [facility] 2022-08-07 08:00:00 2022-08-07 09:00:00 Ancillary Visit AlexiVeronica Craig L [facility] BUILDING 1.2.840.114 350.1.13.10 4.2.7.2.686 [id number] [facility] 2022-07-17 08:00:00 2022-07-17 10:33:07 Ancillary Visit Alexi Julisa Gomez [facility] BUILDING 1.2.840.114 350.1.13.10 4.2.7.2.686 [id number] 179 [id number] [facility] 2022-07-11 08:00:00 2022-07-11 09:09:53 Ancillary Visit AlexiVeronica Craig L [facility] BUILDING 1.2.840.114 350.1.13.10 4.2.7.2.686 [id number] [facility] 2022-07-09 08:00:00 2022-07-09 09:22:42 Ancillary Visit Veronica Truong Craig L [facility] BUILDING 1.2.840.114 350.1.13.10 4.2.7.2.686 [id number] [facility] 2022-07-03 08:00:00 2022-07-03 09:28:51 Ancillary Visit Veronica Tru[facility] 1.2840.114 350.1.13.10 4.2.7.2.686 [id number] [facility] 2022-07-01 08:00:00 2022-07-01 09:42:36 Outpatient R JULISA DURAN [facility] [id number] [facility] 2022-07-01 08:00:00 2022-07-01 09:42:36 Ancillary Visit Veronica Truong [facility] 1.2.840.114 350.1.13.10 4.2.7.2.686 [id number] [facility] 2022-06-25 08:00:00 2022-06-25 10:05:28 Ancillary Visit Veronica Truong [facility] 1.2840.114 350.1.13.10 4.2.7.2.686 [id number] 179 [id number] [facility] 2022-06-20 08:00:00 2022-06-20 09:40:30 Ancillary Visit Veronica Truong [facility] 1.2840.114 350.1.13.10 4.2.7.2.686 [id number] [facility] 2022-06-18 08:00:00 2022-06-18 09:36:15 Ancillary Visit Veronica Truong [facility] 1.2840.114 350.1.13.10 4.2.7.2.686 [id number] [facility] 2022-06-13 08:00:00 2022-06-13 08:45:00 Ancillary Visit Alexi Julisa [facility] 1.2.840.114 350.1.13.10 4.2.7.2.686 [id number] 179 [id number] [facility] 2022-06-10 08:45:00 2022-06-10 09:30:00 Ancillary Visit Alexi [facility]isa [facility] 1.2.840.114 350.1.13.10 4.2.7.2.686 [id number] [facility] 2022-06-06 08:00:00 2022-06-06 10:23:06 Ancillary Visit Veronica Truong Craig L [facility] BUILDING 1.2.840.114 350.1.13.10 4.2.7.2.686 [id number] [facility] 2022-06-04 08:00:00 2022-06-04 09:29:06 Ancillary Visit Veronica Truong Craig L [facility] BUILDING 1.2.840.114 350.1.13.10 4.2.7.2.686 [id number] [facility] 2022-05-30 08:00:00 2022-05-30 10:18:46 Ancillary Visit Veronica Truong Craig L [facility] BUILDING 1.2.840.114 350.1.13.10 4.2.7.2.686 [id number] [facility] 2022-05-28 08:00:00 2022-05-28 10:30:25 Outpatient R JULISA DURAN [facility] [id number] [facility] 2022-05-28 08:00:00 2022-05-28 08:45:00 Ancillary Visit Veronica Truong DuranJulisa [facility] 1.2.840.114 350.1.13.10 4.2.7.2.686 [id number] 179 [id number] [facility] 2022-05-23 08:00:00 2022-05-23 09:06:40 Ancillary Visit Veronica Truong Julisa Duran [facility] 1.2.840.114 350.1.13.10 4.2.7.2.686 [id number] [facility] 2022-05-09 09:30:00 2022-05-09 10:33:51 Ancillary Visit Veronica Truong Julisa Guzmán Manuel [facility] BUILDING 1.2.840.114 350.1.13.10 4.2.7.2.686 [id number] [facility] 2022-05-07 10:15:00 2022-05-07 11:02:32 Ancillary Visit Veronica Truong Aquiles [facility]Julisa [facility] 1.2.840.114 350.1.13.10 4.2.7.2.686 [id number] [facility] 2022-05-05 00:00:00 2022-05-05 00:00:00 Logan Berg[facility] 1.2.840.114 350.1.13.10 4.2.7.2.686 [id number] [facility] 2022-05-05 00:00:00 2022-05-05 00:00:00 Logan Berg[facility] 1.2.840.114 350.1.13.10 4.2.7.2.686 [id number] [facility] 2022-04-30 08:45:00 2022-04-30 08:45:00 Outpatient R JULISA DURAN [facility] [id number] [facility] 2022-04-30 00:00:00 2022-04-30 00:00:00 Case Management Veronica Truong [facility] BUILDING 1.2.840.114 350.1.13.10 4.2.7.2.686 [id number] [facility] 2022-04-24 14:30:00 2022-04-24 15:42:45 Ancillary Visit Veronica Truong Craig L [facility] BUILDING 1.2.840.114 350.1.13.10 4.2.7.2.686 [id number] [facility] 2022-04-17 08:00:00 2022-04-17 09:00:00 Ancillary Visit Veronica Truong Craig L [facility] BUILDING 1.2.840.114 350.1.13.10 4.2.7.2.686 [id number] [facility] 2022-04-11 08:00:00 2022-04-11 09:00:00 Ancillary Visit Veronica Truong Craig L [facility] BUILDING 1.2.840.114 350.1.13.10 4.2.7.2.686 [id number] [facility] 2022-04-09 08:00:00 2022-04-09 09:00:00 Ancillary Visit Veronica Truong Craig L [facility] BUILDING 1.2.840.114 350.1.13.10 4.2.7.2.686 [id number] [facility] 2022-04-04 08:00:00 2022-04-04 09:00:00 Ancillary Visit Alexi Julisa Gomez [facility] 1.2.840.114 350.1.13.10 4.2.7.2.686 [id number] [facility] 2022-04-01 08:00:00 2022-04-01 09:00:00 Ancillary Visit Alexi Julisa Gomez [facility] 1.2.840.114 350.1.13.10 4.2.7.2.686 [id number] [facility] 2022-03-26 08:00:00 2022-03-26 10:37:03 Outpatient R JULISA DURAN [facility] [id number] [facility] 2022-03-26 08:00:00 2022-03-26 10:37:03 Ancillary Visit Niyah Mckeon Craig L [facility] 1.2.840.114 350.1.13.10 4.2.7.2.686 [id number] [facility] 2022-03-26 00:00:00 2022-03-26 00:00:00 Orders Only Doctor Unassigned, [place] [facility] 1.2.840.114 350.1.13.10 4.2.7.2.686 [id number] [facility] 2022-03-12 00:00:00 2022-03-12 00:00:00 Orders Only Doctor Unassigned, [place] [facility] 1.2.840.114 350.1.13.10 4.2.7.2.686 [id number] [facility] 2022-02-10 00:00:00 2022-02-10 00:00:00 Logan Bergman [facility] 1.2.840.114 350.1.13.10 4.2.7.2.686 [id number] [facility] 2021-11-29 00:00:00 2021-11-29 00:00:00 Vita ChaojudahLogan dean [facility] BUILDING 1.2.840.114 350.1.13.10 4.2.7.2.686 [id number] [facility] 2021-09-12 00:00:00 2021-09-12 00:00:00 Vita LanceLogan [facility] BUILDING 1.2.840.114 350.1.13.10 4.2.7.2.686 [id number] [facility] 2021-08-19 00:00:00 2021-08-19 00:00:00 Vita ChaodonovanLogan [facility] Building 1.2.840.114 350.1.13.10 4.2.7.2.686 [id number] [facility] 2021-08-13 00:00:00 2021-08-13 00:00:00 Logan Bergman [facility] Building 1.2.840.114 350.1.13.10 4.2.7.2.686 [id number] [facility] 2021-07-13 00:00:00 2021-07-13 00:00:00 Vita LanceLogan [facility] Building 1.2.840.114 350.1.13.10 4.2.7.2.686 [id number] [facility] 2021-06-24 00:00:00 2021-06-24 00:00:00 Logan Bergman [facility] Building 1.2.840.114 350.1.13.10 4.2.7.2.686 [id number] [facility] 2020-09-05 10:15:00 2020-09-05 10:15:00 Outpatient LOGAN HESTER [facility] [id number] [facility] 2020-06-25 11:40:00 2020-06-25 11:40:00 Outpatient KATE GOMEZ [facility] [id number] [facility] 2020-06-06 15:45:00 2020-06-06 15:45:00 Outpatient LOGAN HESTER [facility] [id number] [facility] 2020-05-09 16:15:00 2020-05-09 16:15:00 Outpatient LOGAN HESTER [facility] [id number] [facility] 2020-03-20 09:15:00 2020-03-20 09:15:00 Outpatient LOGAN HESTER [facility] [id number] [facility] 2020-01-25 11:00:00 2020-01-25 11:00:00 Outpatient R JULISA DURAN [facility] [id number] [facility] 2019-12-29 09:20:00 2019-12-29 09:20:00 Outpatient JULISA AREVALO [facility] [id number] [facility] 2019-12-21 11:42:25 2019-12-21 11:57:25 [facility] Office Building [facility] 1.2.840.114 350.1.13.10 4.2.7.2.686 [id number] [facility] 2019-12-21 11:30:00 2019-12-21 11:30:00 Outpatient LOGAN HESTER [facility] [id number] [facility] 2019-12-20 09:00:00 2019-12-20 09:00:00 Outpatient Arleth [facility] [id number] [facility] 2019-12-16 10:07:00 2019-12-16 11:07:00 Ancillary Visit Veronica Truong Mary Julisa L [facility] Building 1.2.840.114 350.1.13.10 4.2.7.2.686 [id number] [facility] 2019-12-14 09:52:14 2019-12-14 10:52:14 Ancillary Visit Alexi Veronica Aquiles Duran Julisa Jackson [facility] nal Building 1.2.840.114 350.1.13.10 4.2.7.2.686 [id number] [facility] 2019-12-09 08:52:58 2019-12-09 10:16:26 Ancillary Visit Alexi Julisa Gomez [facility] Building 1.2.840.114 350.1.13.10 4.2.7.2.686 [id number] [facility] 2019-12-07 08:58:57 2019-12-07 09:58:57 Ancillary Visit Alexi Julisa Gomez [facility] Building 1.2.840.114 350.1.13.10 4.2.7.2.686 [id number] [facility] 2019-12-02 08:47:35 2019-12-02 09:47:35 Ancillary Visit Alexi Julisa Gomez [facility] Building 1.2.840.114 350.1.13.10 4.2.7.2.686 [id number] [facility] 2019-11-18 09:11:00 2019-11-30 12:53:31 Ancillary Visit Nicolasa Castillo Craig L [facility] Building 1.2.840.114 350.1.13.10 4.2.7.2.686 [id number] [facility] 2019-11-30 08:42:50 2019-11-30 09:42:50 Ancillary Visit Veronica Truong [facility] 1.2.840.114 350.1.13.10 4.2.7.2.686 [id number] [facility] 2019-11-24 08:48:05 2019-11-24 15:06:52 Ancillary Visit Veronica Truong Craig [facility] 1.2.840.114 350.1.13.10 4.2.7.2.686 [id number] [facility] 2019-11-22 08:37:05 2019-11-22 11:36:52 Ancillary Visit Veronica Truong [facility] 1.2.840.114 350.1.13.10 4.2.7.2.686 [id number] [facility] 2019-11-22 00:00:00 2019-11-22 00:00:00 Orders Only Doctor Unassigned, [place] [facility] 1.2.840.114 350.1.13.10 4.2.7.2.686 [id number] [facility] 2019-11-11 00:00:00 2019-11-11 00:00:00 Orders Only Doctor Unassigned, [place] [facility] 1.2.840.114 350.1.13.10 4.2.7.2.686 [id number] [facility] Results Test Description Test Time Test Comments Results Result Co mments Source [facility] [facility] (DIFF/PLT)2024-01-29 11:38:00* Test Item Value Reference Range Interpretation Comme nts WHITE BLOOD CELL COUNT (test code = 92590998) 5.8 Thousand/uL 3.8-10.8 N RED BLOOD CELL COUNT (test code = 62787274) 4.66 Million/uL 4.20-5.80 N HEMOGLOBIN (test code = 96363803) 11.5 g/dL 13.2-17.1 L HEMATOCRIT (test code = 59372798) 38.1 % 38.5-50.0 L MCV (test code = 07909256) 81.8 fL 80.0-100.0 N MCH (test code = 87851899) 24.7 pg 27.0-33.0 L MCHC (test code = 18213077) 30.2 g/dL 32.0-36.0 L RDW (test code = 22274366) 15.4 % 11.0-15.0 H PLATELET COUNT (test code = 68476935) 141 Thousand/uL 140-400 N MPV (test code = 40011961) fL 7.5-12.5 N Due to platelet or RBC variability in size or shapethe result cannot be reported accurately. ABSOLUTE NEUTROPHILS (test code = 26141030) 3695 cells/uL 1582-9704 N ABSOLUTE LYMPHOCYTES (test code = 46938699) 1630 cells/uL 850-3900 N ABSOLUTE MONOCYTES (test code = 56159917) 220 cells/uL 200-950 N ABSOLUTE EOSINOPHILS (test code = 62806938) 226 cells/uL 15-500 N ABSOLUTE BASOPHILS (test code = 84932240) 29 cells/uL 0-200 N NEUTROPHILS (test code = 92094667) 63.7 % N LYMPHOCYTES (test code = 28899641) 28.1 % N MONOCYTES (test code = 57952460) 3.8 % N EOSINOPHILS (test code = 58948529) 3.9 % N BASOPHILS (test code = 22715134) 0.5 % N [facility] H[facility]ITALSI MET [id number] 13:55:00* Test Item Value Reference Range Interpretation Comme nts GLUCOSE (test code = 07833836) 147 mg/dL 65-99 H Fasting referenc e interval For someone without known diabetes, a glucosevalue >125 mg/dL indicates that they may havediabetes and this should be confirmed with afollow-up test. UREA NITROGEN (BUN) (test code = 64649550) 12 mg/dL 7-25 N CREATININE (test code = 24929581) 0.46 mg/dL 0.70-1.30 L EGFR (test code = 90165347) 121 mL/min/1.73m2 >=60 N BUN/CREATININE RATIO (test code = 63976617) 26 (calc) 6-22 H SODIUM (test code = 92896253) 136 mmol/L 135-146 N POTASSIUM (test code = 97159387) 3.9 mmol/L 3.5-5.3 N CHLORIDE (test code = 21015073) 99 mmol/L 98-110 N CARBON DIOXIDE (test code = 73046815) 28 mmol/L 20-32 N CALCIUM (test code = 30708941) 8.9 mg/dL 8.6-10.3 N [facility] (DIFF/PLT)2024-01-19 13:55:00* Test Item Value Reference Range Interpretation Comme nts WHITE BLOOD CELL COUNT (test code = 66557925) 6.8 Thousand/uL 3.8-10.8 N RED BLOOD CELL COUNT (test code = 70364883) 4.73 Million/uL 4.20-5.80 N HEMOGLOBIN (test code = 47141670) 11.7 g/dL 13.2-17.1 L HEMATOCRIT (test code = 96002699) 38.0 % 38.5-50.0 L MCV (test code = 14399289) 80.3 fL 80.0-100.0 N MCH (test code = 23930704) 24.7 pg 27.0-33.0 L MCHC (test code = 79243514) 30.8 g/dL 32.0-36.0 L RDW (test code = 67986857) 15.3 % 11.0-15.0 H PLATELET COUNT (test code = 93812473) 141 Thousand/uL 140-400 N MPV (test code = 02535884) fL 7.5-12.5 N Due to platelet or RBC variability in size or shapethe result cannot be reported accurately. ABSOLUTE NEUTROPHILS (test code = 97733668) 5005 cells/uL 7139-3731 N ABSOLUTE LYMPHOCYTES (test code = 06314894) 1251 cells/uL 850-3900 N ABSOLUTE MONOCYTES (test code = 99052641) 272 cells/uL 200-950 N ABSOLUTE EOSINOPHILS (test code = 96324246) 252 cells/uL 15-500 N ABSOLUTE BASOPHILS (test code = 72344027) 20 cells/uL 0-200 N NEUTROPHILS (test code = 44941646) 73.6 % N LYMPHOCYTES (test code = 61599876) 18.4 % N MONOCYTES (test code = 43506176) 4.0 % N EOSINOPHILS (test code = 32889813) 3.7 % N BASOPHILS (test code = 35456836) 0.3 % N [facility] [id number] 18:17:00* Test Item Value Reference Range Interpretation Comments HEMOGLOBIN A1c (test code = 04923162) 7.0 % of total Hgb <5.7 H For someone without known diabetes, a hemoglobin Z3hwbnke of 6.5% or greater indicates that they [...] This test was performed on the Kathy viviane c503 platform.Effective 09/07/23, a change in test platforms from theRoposo to the Kathy viviane c503 may have uvmevawNbI6v results compared to historical results.[facility] the Kathy platform relative to the Packetmotion had an average increase in HbA1c value of< or = 0.3%. This difference is within accepted variability established by the National GlycohemoglobinStandardization Program. Note that not all individualswill have had a shift in their results and directcomparisons between historical and current results fortesting conducted on different platforms is notrecommended. [facility] META [id number] 15:13:00* Test Item Value Reference Range Interpretation Comme nts GLUCOSE (test code = 20640744) 132 mg/dL 65-99 H Fasting referenc e interval For someone without known diabetes, a glucosevalue >125 mg/dL indicates that they may havediabetes and this should be confirmed with afollow-up test. UREA NITROGEN (BUN) (test code = 32841040) 9 mg/dL 7-25 N CREATININE (test code = 55297092) 0.47 mg/dL 0.70-1.30 L EGFR (test code = 62423212) 120 mL/min/1.73m2 >=60 N BUN/CREATININE RATIO (test code = 66995130) 19 (calc) 6-22 N SODIUM (test code = 22554185) 140 mmol/L 135-146 N POTASSIUM (test code = 53688695) 4.1 mmol/L 3.5-5.3 N CHLORIDE (test code = 23289429) 101 mmol/L 98-110 N CARBON DIOXIDE (test code = 05525667) 31 mmol/L 20-32 N CALCIUM (test code = 32971144) 9.2 mg/dL 8.6-10.3 N PROTEIN, TOTAL (test code = 18259632) 6.6 g/dL 6.1-8.1 N ALBUMIN (test code = 96776202) 3.5 g/dL 3.6-5.1 L GLOBULIN (test code = 37100334) 3.1 g/dL (calc) 1.9-3.7 N ALBUMIN/GLOBULIN RATIO (test code = 14606175) 1.1 (calc) 1.0-2.5 N BILIRUBIN, TOTAL (test code = 99090602) 0.8 mg/dL 0.2-1.2 N ALKALINE PHOSPHATASE (test code = 34174037) 107 U/L 35-144 N AST (test code = 26052099) 10 U/L 10-35 N ALT (test code = 69529391) 15 U/L 9-46 N [facility] (DIFF/PLT)2024-01-14 15:13:00* Test Item Value Reference Range Interpretation Comme nts WHITE BLOOD CELL COUNT (test code = 80791802) 6.9 Thousand/uL 3.8-10.8 N RED BLOOD CELL COUNT (test code = 74678530) 4.47 Million/uL 4.20-5.80 N HEMOGLOBIN (test code = 90105438) 10.9 g/dL 13.2-17.1 L HEMATOCRIT (test code = 47725578) 35.5 % 38.5-50.0 L MCV (test code = 69877614) 79.4 fL 80.0-100.0 L MCH (test code = 93004127) 24.4 pg 27.0-33.0 L MCHC (test code = 91868065) 30.7 g/dL 32.0-36.0 L RDW (test code = 10021546) 14.8 % 11.0-15.0 N PLATELET COUNT (test code = 60102883) 141 Thousand/uL 140-400 N MPV (test code = 15156790) 13.2 fL 7.5-12.5 H ABSOLUTE NEUTROPHILS (test code = 47451422) 4837 cells/uL 8286-8995 N ABSOLUTE LYMPHOCYTES (test code = 03230092) 1559 cells/uL 850-3900 N ABSOLUTE MONOCYTES (test cod e = 53479402) 290 cells/uL 200-950 N ABSOLUTE EOSINOPHILS (test code = 34536545) 193 cells/uL 15-500 N ABSOLUTE BASOPHILS (test cod e = 74703651) 21 cells/uL 0-200 N NEUTROPHILS (test code = 34506802) 70.1 % N LYMPHOCYTES (test code = 85785370) 22.6 % N MONOCYTES (test code = 40160082) 4.2 % N EOSINOPHILS (test code = 66865987) 2.8 % N BASOPHILS (test code = 91171937) 0.3 % N [facility] TIME WITH [id number] 11:00:00* Test Item Value Reference Range Interpretation Comme nts INR (test code = 30273226) 1.1 N Reference Range 0.9-1.1Moderate-intensity Warfarin Therapy 2.0-3.0Higher-intensity Warfarin Therapy 3.0-4.0 PT (test code = 69883250) 11.9 sec 9.0-11.5 H For additional information, please refer [email or web address] (This link is being provided for informational/educational purposes only.) [facility] HOSPITALBASIC MET [id number] 14:10:00* Test Item Value Reference Range Interpretation Comme nts GLUCOSE (test code = 29392547) 120 mg/dL 65-99 H Fasting referenc e interval For someone without known diabetes, a glucose valuebetween 100 and 125 mg/dL is consistent withprediabetes and should be confirmed with afollow-up test. UREA NITROGEN (BUN) (test code = 86318599) 24 mg/dL 7-25 N CREATININE (test code = 12000589) 0.73 mg/dL 0.70-1.30 N EGFR (test code = 14398638) 105 mL/min/1.73m2 >=60 N BUN/CREATININE RATIO (test code = 01343401) SEE NOTE: (calc) 6-22 N Not Reported: BUN an d Creatinine are within reference range. SODIUM (test code = 45761389) 138 mmol/L 135-146 N POTASSIUM (test code = 19407195) 4.3 mmol/L 3.5-5.3 N CHLORIDE (test code = 34238677) 101 mmol/L 98-110 N CARBON DIOXIDE (test code = 11246027) 27 mmol/L 20-32 N CALCIUM (test code = 72535889) 8.7 mg/dL 8.6-10.3 N [facility] HOSPITALCB (DIFF/PLT)2023-11-19 14:10:00* Test Item Value Reference Range Interpretation Comme nts WHITE BLOOD CELL COUNT (test code = 18781903) 7.3 Thousand/uL 3.8-10.8 N RED BLOOD CELL COUNT (test code = 78993867) 4.24 Million/uL 4.20-5.80 N HEMOGLOBIN (test code = 01697999) 10.3 g/dL 13.2-17.1 L HEMATOCRIT (test code = 29852967) 34.0 % 38.5-50.0 L MCV (test code = 29845614) 80.2 fL 80.0-100.0 N MCH (test code = 65192079) 24.3 pg 27.0-33.0 L MCHC (test code = 80915484) 30.3 g/dL 32.0-36.0 L RDW (test code = 47795413) 14.5 % 11.0-15.0 N PLATELET COUNT (test code = 29976855) 166 Thousand/uL 140-400 N MPV (test code = 37475031) fL 7.5-12.5 N Due to platelet or RBC variability in size or shapethe result cannot be reported accurately. ABSOLUTE NEUTROPHILS (test code = 62644670) 5015 cells/uL 7510-3536 N ABSOLUTE LYMPHOCYTES (test code = 61331166) 1657 cells/uL 850-3900 N ABSOLUTE MONOCYTES (test code = 89737321) 321 cells/uL 200-950 N ABSOLUTE EOSINOPHILS (test code = 16775215) 277 cells/uL 15-500 N ABSOLUTE BASOPHILS (test code = 13569359) 29 cells/uL 0-200 N NEUTROPHILS (test code = 61494236) 68.7 % N LYMPHOCYTES (test code = 07406232) 22.7 % N MONOCYTES (test code = 06479669) 4.4 % N EOSINOPHILS (test code = 39561483) 3.8 % N BASOPHILS (test code = 60162106) 0.4 % N [facility] MET [id number] 13:21:00* Test Item Value Reference Range Interpretation Comme nts GLUCOSE (test code = 93541791) 77 mg/dL 65-99 N Fasting referenc e interval UREA NITROGEN (BUN) (test code = 14954750) 15 mg/dL 7-25 N CREATININE (test code = 88476880) 0.79 mg/dL 0.70-1.30 N EGFR (test code = 16845239) 103 mL/min/1.73m2 >=60 N BUN/CREATININE RATIO (test code = 46850872) SEE NOTE: (calc) 6-22 N Not Reported: BUN and Creatinine are within reference range. SODIUM (test code = 54156397) 138 mmol/L 135-146 N POTASSIUM (test code = 49214822) 4.2 mmol/L 3.5-5.3 N CHLORIDE (test code = 46157851) 101 mmol/L 98-110 N CARBON DIOXIDE (test code = 97597850) 28 mmol/L 20-32 N CALCIUM (test code = 34459300) 8.9 mg/dL 8.6-10.3 N [facility] (DIFF/PLT)2023-11-16 13:21:00* Test Item Value Reference Range Interpretation Comme nts WHITE BLOOD CELL COUNT (test code = 56750742) 7.1 Thousand/uL 3.8-10.8 N RED BLOOD CELL COUNT (test code = 96114158) 4.30 Million/uL 4.20-5.80 N HEMOGLOBIN (test code = 60757747) 10.4 g/dL 13.2-17.1 L HEMATOCRIT (test code = 75615864) 34.6 % 38.5-50.0 L MCV (test code = 42740664) 80.5 fL 80.0-100.0 N MCH (test code = 85276833) 24.2 pg 27.0-33.0 L MCHC (test code = 21210515) 30.1 g/dL 32.0-36.0 L RDW (test code = 84010659) 14.5 % 11.0-15.0 N PLATELET COUNT (test code = 10713843) 154 Thousand/uL 140-400 N MPV (test code = 73707255) fL 7.5-12.5 N Due to platelet or RBC variability in size or shapethe result cannot be reported accurately. ABSOLUTE NEUTROPHILS (test code = 88734926) 4665 cells/uL 3839-5437 N ABSOLUTE LYMPHOCYTES (test code = 88501325) 1818 cells/uL 850-3900 N ABSOLUTE MONOCYTES (test code = 06909176) 320 cells/uL 200-950 N ABSOLUTE EOSINOPHILS (test code = 97231747) 270 cells/uL 15-500 N ABSOLUTE BASOPHILS (test code = 39115507) 28 cells/uL 0-200 N NEUTROPHILS (test code = 03889576) 65.7 % N LYMPHOCYTES (test code = 06770290) 25.6 % N MONOCYTES (test code = 17478871) 4.5 % N EOSINOPHILS (test code = 18833277) 3.8 % N BASOPHILS (test code = 50789474) 0.4 % N [facility] [id number] 12:29:00* Test Item Value Reference Range Interpretation Comme nts GLUCOSE (test code = 13861985) 103 mg/dL 65-99 H Fasting referenc e interval For someone without known diabetes, a glucose valuebetween 100 and 125 mg/dL is consistent withprediabetes and should be confirmed with afollow-up test. UREA NITROGEN (BUN) (test code = 09351655) 17 mg/dL 7-25 N CREATININE (test code = 84549503) 0.93 mg/dL 0.70-1.30 N EGFR (test code = 01838848) 95 mL/min/1.73m2 >=60 N BUN/CREATININE RATIO (test code = 48059534) SEE NOTE: (calc) 6-22 N Not Reported: BUN an d Creatinine are within reference range. SODIUM (test code = 73546217) 139 mmol/L 135-146 N POTASSIUM (test code = 76474324) 4.4 mmol/L 3.5-5.3 N CHLORIDE (test code = 44481704) 104 mmol/L 98-110 N CARBON DIOXIDE (test code = 64267397) 27 mmol/L 20-32 N CALCIUM (test code = 90472346) 8.3 mg/dL 8.6-10.3 L [facility] (DIFF/PLT)2023-11-12 12:29:00* Test Item Value Reference Range Interpretation Comme nts WHITE BLOOD CELL COUNT (test code = 04791779) 6.5 Thousand/uL 3.8-10.8 N RED BLOOD CELL COUNT (test code = 60409436) 4.12 Million/uL 4.20-5.80 L HEMOGLOBIN (test code = 11619993) 10.0 g/dL 13.2-17.1 L HEMATOCRIT (test code = 14256094) 32.9 % 38.5-50.0 L MCV (test code = 95181551) 79.9 fL 80.0-100.0 L MCH (test code = 26646080) 24.3 pg 27.0-33.0 L MCHC (test code = 19405507) 30.4 g/dL 32.0-36.0 L RDW (test code = 46958593) 14.5 % 11.0-15.0 N PLATELET COUNT (test code = 11330871) 146 Thousand/uL 140-400 N MPV (test code = 91964908) fL 7.5-12.5 N Due to platelet or RBC variability in size or shapethe result cannot be reported accurately. ABSOLUTE NEUTROPHILS (test code = 81965236) 4368 cells/uL 8931-5523 N ABSOLUTE LYMPHOCYTES (test code = 58879882) 1599 cells/uL 850-3900 N ABSOLUTE MONOCYTES (test code = 95667304) 280 cells/uL 200-950 N ABSOLUTE EOSINOPHILS (test code = 67883158) 241 cells/uL 15-500 N ABSOLUTE BASOPHILS (test code = 65567262) 13 cells/uL 0-200 N NEUTROPHILS (test code = 73155880) 67.2 % N LYMPHOCYTES (test code = 98512728) 24.6 % N MONOCYTES (test code = 11659791) 4.3 % N EOSINOPHILS (test code = 83717811) 3.7 % N BASOPHILS (test code = 93175797) 0.2 % N [facility] [id number] 21:25:00* Test Item Value Reference Range Interpretation Comme [facility] GLUCOSE (test code = 76545867) 141 mg/dL 65-99 H Fasting referenc e interval For someone without known diabetes, a glucosevalue >125 mg/dL indicates that they may havediabetes and this should be confirmed with afollow-up test. UREA NITROGEN (BUN) (test code = 48987428) 18 mg/dL 7-25 N CREATININE (test code = 15863592) 0.66 mg/dL 0.70-1.30 L EGFR (test code = 01829689) 109 mL/min/1.73m2 >=60 N BUN/CREATININE RATIO (test code = 98611408) 27 (calc) 6-22 H SODIUM (test code = 49627936) 137 mmol/L 135-146 N POTASSIUM (test code = 42898361) 3.9 mmol/L 3.5-5.3 N CHLORIDE (test code = 85361375) 100 mmol/L 98-110 N CARBON DIOXIDE (test code = 19673579) 28 mmol/L 20-32 N CALCIUM (test code = 99797457) 8.6 mg/dL 8.6-10.3 N [facility] (DIFF/PLT)2023-11-10 21:25:00* Test Item Value Reference Range Interpretation Comme nts WHITE BLOOD CELL COUNT (test code = 87377417) 7.6 Thousand/uL 3.8-10.8 N RED BLOOD CELL COUNT (test code = 77316435) 4.35 Million/uL 4.20-5.80 N HEMOGLOBIN (test code = 27473661) 10.5 g/dL 13.2-17.1 L HEMATOCRIT (test code = 80726388) 34.7 % 38.5-50.0 L MCV (test code = 44174096) 79.8 fL 80.0-100.0 L MCH (test code = 41428497) 24.1 pg 27.0-33.0 L MCHC (test code = 82776414) 30.3 g/dL 32.0-36.0 L RDW (test code = 52550776) 14.4 % 11.0-15.0 N PLATELET COUNT (test code = 17404765) 159 Thousand/uL 140-400 N MPV (test code = 00262929) fL 7.5-12.5 N Due to platelet or RBC variability in size or shapethe result cannot be reported accurately. ABSOLUTE NEUTROPHILS (test code = 12103543) 5046 cells/uL 8900-7733 N ABSOLUTE LYMPHOCYTES (test code = 65917576) 2006 cells/uL 850-3900 N ABSOLUTE MONOCYTES (test code = 50379875) 319 cells/uL 200-950 N ABSOLUTE EOSINOPHILS (test code = 68585752) 198 cells/uL 15-500 N ABSOLUTE BASOPHILS (test code = 62626996) 30 cells/uL 0-200 N NEUTROPHILS (test code = 89087551) 66.4 % N LYMPHOCYTES (test code = 58992590) 26.4 % N MONOCYTES (test code = 92760157) 4.2 % N EOSINOPHILS (test code = 38500025) 2.6 % N BASOPHILS (test code = 11776563) 0.4 % N [facility] W/RFL [id number] 21:25:00* Test Item Value Reference Range Interpretation Comme nts COLOR (test code = 43195928) DARK YELLOW YELLOW N APPEARANCE (test code = 39968603) CLOUDY CLEAR A SPECIFIC GRAVITY (test code = 73099596) 1.021 1.001-1.035 N PH (test code = 05289788) 5.5 5.0-8.0 N GLUCOSE (test code = 94912787) NEGATIVE NEGATIVE N BILIRUBIN (test code = 80934634) NEGATIVE NEGATIVE N KETONES (test code = 13329041) TRACE NEGATIVE A OCCULT BLOOD (test code = 70409653) NEGATIVE NEGATIVE N PROTEIN (test code = 92585864) 1+ NEGATIVE A NITRITE (test code = 73570696) NEGATIVE NEGATIVE N LEUKOCYTE ESTERASE (test code = 84817489) 2+ NEGATIVE A WBC (test code = 13916600) > OR = 60 /HPF 0-5 A RBC (test code = 35394641) NONE SEEN /HPF 0-2 N SQUAMOUS EPITHELIAL CELLS (test code = 18410646) NONE SEEN /HPF <=5 N BACTERIA (test code = 25272631) MANY /HPF NONE SEEN A HYALINE CAST (test code = 52530540) NONE SEEN /LPF NONE SEEN N NOTE (test code = 21013335) This urine was analyzed for the presence of WBC, RBC, bacteria, casts, and other formed elements. Only those elements seen were reported. [facility], UR [id number] 21:25:00* Test Item Value Reference Range Interpretation Comme nts SOURCE: (test code = 47574262) URINE STATUS: (test code = 73619267) FINAL ISOLATE 1: (test code = 11666754) Enterobacter cloacae complex A [facility]URA,[id number] 21:25:00* Test Item Value Reference Range Interpretation Comme nts ISOLATE (test code = 14221168) N Enterobacter [place] acae complex AMOXICILLIN/CLAVULANI C (test code = 16293470) 16 R CEFAZOLIN (test code = 38655099) >=64 R For uncomplicate d UTI caused by E. coli,K. pneumoniae or P. mirabilis: Cefazolin issusceptible if LISETTE <32 mcg/mL and predictssusceptible to the oral agents cefaclor, cefdinir,cefpodoxime, cefprozil, cefuroxime, cephalexinand loracarbef. CEFTAZIDIME (test code = 62051145) <=1 S CEFEPIME (test code = 12499840) <=1 S CEFTRIAXONE (test code = 17647549) <=1 S CIPROFLOXACIN (test code = 32966223) <=0.25 S LEVOFLOXACIN (test code = 09101863) <=0.12 S GENTAMICIN (test code = 39185290) <=1 S IMIPENEM (test code = 40022081) <=0.25 S NITROFURANTOIN (test code = 01749519) 64 I PIPERACILLIN/TAZOBACT AM (test code = 95708122) <=4 S TOBRAMYCIN (test code = 93849669) <=1 S TRIMETHOPRIM/SULFA (test code = 65119300) >=320 R Legend:S = Susce ptible I = IntermediateR = Resistant NS = Not susceptible* = Not tested NR = Not reportedNN = See antimicrobic comments [facility] [id number] 21:25:00* Test Item Value Reference Range Interpretation Comme nts REFLEXIVE URINE CULTURE (test code = 42489260) CULTURE I NDICATED - RESULTS TO FOLLOW [facility]ITAL[facility]ID PANEL [id number] 21:25:00* Test Item Value Reference Range Interpretation Comme nts T3 UPTAKE (test code = 53377489) 34 % 22-35 N T4 (THYROXINE), TOTAL (test code = 54729241) 6.4 mcg/dL 4.9-10.5 N FREE T4 INDEX (T7) (test cod e = 16664110) 2.2 1.4-3.8 N TSH (test code = 68580458) 1.55 mIU/L 0.40-4.50 N [facility] HOSPITALTHYROID PANEL [id number] 10:09:00* Test Item Value Reference Range Interpretation Comme nts T3 UPTAKE (test code = 98481565) 34 % 22-35 N T4 (THYROXINE), TOTAL (test code = 44356762) 6.4 mcg/dL 4.9-10.5 N FREE T4 INDEX (T7) (test cod e = 06034269) 2.2 1.4-3.8 N TSH (test code = 91490579) 1.55 mIU/L 0.40-4.50 N [facility] H[facility]ITALBASIC MET [id number] 10:09:00* Test Item Value Reference Range Interpretation Comme nts GLUCOSE (test code = 63240912) 141 mg/dL 65-99 H Fasting referenc e interval For someone without known diabetes, a glucosevalue >125 mg/dL indicates that they may havediabetes and this should be confirmed with afollow-up test. UREA NITROGEN (BUN) (test code = 89715448) 18 mg/dL 7-25 N CREATININE (test code = 51490694) 0.66 mg/dL 0.70-1.30 L EGFR (test code = 04665559) 109 mL/min/1.73m2 >=60 N BUN/CREATININE RATIO (test code = 09849015) 27 (calc) 6-22 H SODIUM (test code = 13098204) 137 mmol/L 135-146 N POTASSIUM (test code = 97353877) 3.9 mmol/L 3.5-5.3 N CHLORIDE (test code = 97594835) 100 mmol/L 98-110 N CARBON DIOXIDE (test code = 55791693) 28 mmol/L 20-32 N CALCIUM (test code = 69915301) 8.6 mg/dL 8.6-10.3 N [facility]FF/PLT[facility]2023-11-10 10:09:00* Test Item Value Reference Range Interpretation Comme nts WHITE BLOOD CELL COUNT (test code = 26207278) 7.6 Thousand/uL 3.8-10.8 N RED BLOOD CELL COUNT (test code = 74053335) 4.35 Million/uL 4.20-5.80 N HEMOGLOBIN (test code = 74502221) 10.5 g/dL 13.2-17.1 L HEMATOCRIT (test code = 17323422) 34.7 % 38.5-50.0 L MCV (test code = 19770369) 79.8 fL 80.0-100.0 L MCH (test code = 83467150) 24.1 pg 27.0-33.0 L MCHC (test code = 80000309) 30.3 g/dL 32.0-36.0 L RDW (test code = 67269849) 14.4 % 11.0-15.0 N PLATELET COUNT (test code = 20684002) 159 Thousand/uL 140-400 N MPV (test code = 93067458) fL 7.5-12.5 N Due to platelet or RBC variability in size or shapethe result cannot be reported accurately. ABSOLUTE NEUTROPHILS (test code = 83198528) 5046 cells/uL 8140-0914 N ABSOLUTE LYMPHOCYTES (test code = 78847306) 2006 cells/uL 850-3900 N ABSOLUTE MONOCYTES (test code = 97716777) 319 cells/uL 200-950 N ABSOLUTE EOSINOPHILS (test code = 21673223) 198 cells/uL 15-500 N ABSOLUTE BASOPHILS (test code = 82895752) 30 cells/uL 0-200 N NEUTROPHILS (test code = 89043199) 66.4 % N LYMPHOCYTES (test code = 76167723) 26.4 % N MONOCYTES (test code = 19267052) 4.2 % N EOSINOPHILS (test code = 77802404) 2.6 % N BASOPHILS (test code = 77212750) 0.4 % N [facility] W/RFL [id number] 10:09:00* Test Item Value Reference Range Interpretation Comme nts COLOR (test code = 62760083) DARK YELLOW YELLOW N APPEARANCE (test code = 07547220) CLOUDY CLEAR A SPECIFIC GRAVITY (test code = 18234387) 1.021 1.001-1.035 N PH (test code = 86529074) 5.5 5.0-8.0 N GLUCOSE (test code = 73881432) NEGATIVE NEGATIVE N BILIRUBIN (test code = 69680060) NEGATIVE NEGATIVE N KETONES (test code = 40392388) TRACE NEGATIVE A OCCULT BLOOD (test code = 10041799) NEGATIVE NEGATIVE N PROTEIN (test code = 63667733) 1+ NEGATIVE A NITRITE (test code = 38560491) NEGATIVE NEGATIVE N LEUKOCYTE ESTERASE (test code = 23013861) 2+ NEGATIVE A WBC (test code = 17961899) > OR = 60 /HPF 0-5 A RBC (test code = 13152424) NONE SEEN /HPF 0-2 N SQUAMOUS EPITHELIAL CELLS (test code = 12342205) NONE SEEN /HPF <=5 N BACTERIA (test code = 38978754) MANY /HPF NONE SEEN A HYALINE CAST (test code = 68019250) NONE SEEN /LPF NONE SEEN N NOTE (test code = 27893007) This urine was analyzed for the presence of WBC, RBC, bacteria, casts, and other formed elements. Only those elements seen were reported. [facility] [id number] 10:09:00* Test Item Value Reference Range Interpretation Comme nts SOURCE: (test code = 49154029) URINE STATUS: (test code = 40731115) PRELIMINARY ISOLATE 1: (test code = 82003156) Gram negative bacilli isolated A [facility],[id number] 10:09:00* Test Item Value Reference Range Interpretation Comme nts ISOLATE (test code = 09457759) N Gram negative ba cilli isolated [facility] [id number] 10:09:00* Test Item Value Reference Range Interpretation Comme nts REFLEXIVE URINE CULTURE (test code = 90255403) CULTURE I NDICATED - RESULTS TO FOLLOW [facility] META [id number] 21:49:00* Test Item Value Reference Range Interpretation Comme nts GLUCOSE (test code = 98282731) 117 mg/dL 65-99 H Fasting referenc e interval For someone without known diabetes, a glucose valuebetween 100 and 125 mg/dL is consistent withprediabetes and should be confirmed with afollow-up test. UREA NITROGEN (BUN) (test code = 33153814) 18 mg/dL 7-25 N CREATININE (test code = 11187572) 0.61 mg/dL 0.70-1.30 L EGFR (test code = 39404166) 111 mL/min/1.73m2 >=60 N BUN/CREATININE RATIO (test code = 59303618) 30 (calc) 6-22 H SODIUM (test code = 40829742) 137 mmol/L 135-146 N POTASSIUM (test code = 82352303) 4.4 mmol/L 3.5-5.3 N CHLORIDE (test code = 36245638) 102 mmol/L 98-110 N CARBON DIOXIDE (test code = 61870753) 26 mmol/L 20-32 N CALCIUM (test code = 12027623) 8.7 mg/dL 8.6-10.3 N PROTEIN, TOTAL (test code = 37924074) 6.5 g/dL 6.1-8.1 N ALBUMIN (test code = 79491612) 3.7 g/dL 3.6-5.1 N GLOBULIN (test code = 70029476) 2.8 g/dL (calc) 1.9-3.7 N ALBUMIN/GLOBULIN RATIO (test code = 86155859) 1.3 (calc) 1.0-2.5 N BILIRUBIN, TOTAL (test code = 53931930) 0.5 mg/dL 0.2-1.2 N ALKALINE PHOSPHATASE (test code = 91431159) 112 U/L 35-144 N AST (test code = 43934549) 17 U/L 10-35 N ALT (test code = 07291889) 17 U/L 9-46 N [facility] TIME WITH [id number] 21:49:00* Test Item Value Reference Range Interpretation Comme nts INR (test code = 68899754) 1.1 N Reference Range 0.9-1.1Moderate-intensity Warfarin Therapy 2.0-3.0Higher-intensity Warfarin Therapy 3.0-4.0 PT (test code = 38432821) 11.4 sec 9.0-11.5 N For additional information, please refer [email or web address]://education.Websand/faq/LKP207 (This link is being provided for informational/educational purposes only.) [facility] ([facility]FF/PLT)2023-11-09 21:49:00* Test Item Value Reference Range Interpretation Comme nts WHITE BLOOD CELL COUNT (test code = 00300527) 8.0 Thousand/uL 3.8-10.8 N RED BLOOD CELL COUNT (test code = 33979471) 4.25 Million/uL 4.20-5.80 N HEMOGLOBIN (test code = 41189312) 10.1 g/dL 13.2-17.1 L HEMATOCRIT (test code = 71151842) 33.9 % 38.5-50.0 L MCV (test code = 97470977) 79.8 fL 80.0-100.0 L MCH (test code = 68142278) 23.8 pg 27.0-33.0 L MCHC (test code = 31880104) 29.8 g/dL 32.0-36.0 L RDW (test code = 08105258) 14.5 % 11.0-15.0 N PLATELET COUNT (test code = 71070228) 149 Thousand/uL 140-400 N MPV (test code = 67875066) fL 7.5-12.5 N Due to platelet or RBC variability in size or shapethe result cannot be reported accurately. ABSOLUTE NEUTROPHILS (test code = 47677175) 5928 cells/uL 0276-9599 N ABSOLUTE LYMPHOCYTES (test code = 19103789) 1560 cells/uL 850-3900 N ABSOLUTE MONOCYTES (test code = 23746587) 336 cells/uL 200-950 N ABSOLUTE EOSINOPHILS (test code = 49565054) 160 cells/uL 15-500 N ABSOLUTE BASOPHILS (test code = 89777708) 16 cells/uL 0-200 N NEUTROPHILS (test code = 49867500) 74.1 % N LYMPHOCYTES (test code = 11924506) 19.5 % N MONOCYTES (test code = 42208572) 4.2 % N EOSINOPHILS (test code = 62469694) 2.0 % N BASOPHILS (test code = 83448072) 0.2 % N [facility] [id number] 20:16:00* Test Item Value Reference Range Interpretation Comme nts HEMOGLOBIN A1c (test code = 22410347) 10.3 % of total Hgb <5.7 H For someone without known diabetes, a hemoglobin I2zkenwe of 6.5% or greater indicates that they [...] of diabetes for children. HbA1c performed on [employer] platform.Effective 09/07/23 a change in test platforms may have shifted HbA1c results compared to historical results. [facility]
[2024-06-10] MEDS: Meropenem 1,000 MG in NA CHLORIDE 0.9% 100 ML IV SCH (10:52)
[2024-06-10] MEDS: NA CHLORIDE 0.9% 250 ML ONE (11:29)
[2024-06-10 11:35] VITALS: O2SAT 93
[2024-06-10 13:47] LABS: Albumin 2.5 g/dL (3.4-5.0); Albumin/Globulin Ratio 0.7 (1.1-1.8); Alkaline Phosphatase 87 U/L (45-117); Anion Gap 3.7 mEq/L (5.0-15.0); BUN Blood Urea Nitrogen 14 mg/dL (7-18); Bicarbonate 36 mEq/L (21-32); Bilirubin Total 0.8 mg/dL (0.2-1.0); Globulin 3.5 g/dL (2.3-3.5); Glucose Level 135 mg/dL (74-106); Potassium 3.7 mEq/L (3.5-5.1); Sodium Level 137 mEq/L (136-145)
[2024-06-10 13:53] LABS: ALT/SGPT < 14 U/L (16-61); AST/SGOT < 10 U/L (15-37); Glomerular Filtration Rate 146 ml/min (=/>90)
[2024-06-10] MEDS: propofoL 1,000 MG/100 ML VIAL IV ONE (13:56)
[2024-06-10] MEDS ORDERED: NOREPINEPHRINE 4 MG in D5W 250 ML IV SCH (14:00)
[2024-06-10] MEDS: propofoL 1,000 MG/100 ML VIAL IV SCH (14:10)
[2024-06-10] MEDS: FENTANYL CITR 100 MCG/2 ML IV ONE (14:11)
[2024-06-10 14:17] LABS: Absolute Lymphocytes (CBC) 0.9 K/uL (0.7-4.9); Absolute Monocytes 0.9 K/uL (0.1-1.3); Absolute Neutrophil 13.5 K/uL (1.8-8.0); Basophils % 0.2 % (0-1.3); Eosinophils % 0.3 % (0-4.4); Hematocrit 25.6 % (39.6-49.0); Hemoglobin 7.3 g/dL (13.6-17.9); MCH 20.1 pg (27.0-35.0); MCHC 28.4 g/dL (32.0-36.0); MCV 70.8 fL (80-100); MPV 9.2 fL (7.6-11.3); Neutrophils % 87.5 % (41.7-73.7); Nucleated Red Blood Cells % 0.1 % (0-0); Platelets 177 thou/uL (152-406); RBC Red Blood Cell Count 3.62 M/uL (4.33-5.43)
[2024-06-10] MEDS: propofoL 200 MG/20 ML VIAL IV ONE (14:31)
[2024-06-10] MEDS: Levofloxacin500mg IV 500 MG/100 ML BAG IV SCH (14:37)
[2024-06-10 14:47] LABS: Anisocytosis 2+; Blood Morphology Comment NOTED (NOT SEEN); Hypochromasia 3+; Platelet Estimate ADEQ; Polychromasia 1+; White Blood Cell Scan OK (OK)
[2024-06-10 14:48] LABS: Agglutinates, Cold (RBC Morph) NOTED; Rouleau 1
--- NOTE | 2024-06-10 15:48 | P.PN ---
Subjective Date of Service: 06/10/24 Primary Care Provider: Noelle Chief Complaint: Anemia Subjective: Worsening (Patient unresponsive) patient difficulty to arouse Physical Examination - Vital Signs Temperature: 98.2 F Blood Pressure: 98/56 Pulse: 97 Respirations: 25 Pulse Ox (%): 100 Assessment And Plan - Current Problems (Diagnosis) (1) Complicated UTI (urinary tract infection) Current Visit: No Status: Acute Plan: Will start the patient on levaquin. Order blood cultures. Consult to Dr. Skinner wbc is elevated. will add meropenem (2) Diabetic neuropathy associated with type 2 diabetes mellitus Current Visit: No Status: Acute Plan: will restart his lyrica. ISS low dose, diabetic diet Qualifiers: (3) Anemia Current Visit: Yes Status: Acute Plan: transfusion order. Will order reticulocyte and iron studies. Most likely sources was hematuria. Check stool for guiac. Will keep him on lovenox as the patient is a high risk for DVT being this anemic no improvement. Will transfuse 1 more unit of prbc. Qualifiers: Anemia type: iron deficiency Iron deficiency anemia type: chronic blood loss Qualified Code(s): D50.0 - Iron deficiency anemia secondary to blood loss (chronic) Physician Review: Patient Assessed, Agree with Above Assessment and Plan
[2024-06-10] MEDS ORDERED: ALBUTEROL 2.5 MG/3 ML NEB SOL NEB PRN (15:53)
--- NOTE | 2024-06-10 15:57 | P.PN ---
Date of Service: 06/10/24 rapid response called Patient intubated. Came to see him. The patient does not want intubation. He has been bed bound and not able to move for the last months. Has told his that he does not want to live in pain anymore. The patient has been having a lot of blood in his mouth and ET tube. He most likely has a Upper GI bleed. he does not want to be transfered to [place] for GI evaluation Patient wishes to be DNR. His family is at the bedside. The states that these are his wishes and wishes to respect the patients wishes Will change him to DNR Order inpatient hospice start him on intermittent dilaudid Thank you for allowing me to take part in the patients care.
[2024-06-10] MEDS: HYDROMORPHONE HCL 1 MG/ML INJ IV SCH (16:01)
--- NOTE | 2024-06-10 16:15 | P.PN ---
Date of Service: 06/10/24 Rapid response called overhead around ~1300 today. Nurse noted patient became unresponsive to verbal or painful stimuli. She reports he was responding appropriately this morning, was receiving his 3rd unit of PRBCs when she briefly stepped out of the room to grab supplies, and upon return, he was no longer responding. He did not lose his pulse / did not stop breathing. His blood pressure was 100/70 Upon my arrival shortly after overhead call, patient was still unresponsive to any painful stimuli. afebrile, regular rate/rhythm. shallow respirations.no medications recently given that would cause this. last received sedating meds / opioids yesterday. nurse staff reported patient had a similar but much more brief episode overnight, which was self-limited and resolved quikcly without any intervention. ABG was obtained and concerning for respiratory acidosis, with low ph and PC02 > 90. Patient was unable to protect his airway and the decision was made to intubate the patient. Chart noted patient as full code. His was at bedside and when I asked via media buyer line she stated patient had expressed previously never wanting to be intubated. I asked for clarification if meant in a situation like this, of he meant more along the lines of not wanting to be on the ventilator for a long time. After this discussion, she agreed with intubation at this time. Anesthesia was called and intubated the patient. There was slight bleeding fromt he oropharyngeal cavity during intubation. Shortly after intubation but prior to starting sedation drip, patient did open his eyes and was more alert. vent protocol ordered. pulm consulted. propofol and fentanyl ordered. Patient transferred to ICU. Events discussed and updated Dr. Drake over the phone. Dr. Olivares consulted for assistance with vent management. repeat labs pending I spent 45 minutes of critical care time at the bedside managing this patient's care, including reviewing lab work, notes, discussing with staff and treatment team at bedside, coordinating critical care, transferring to ICU, and adjusting medications.
[2024-06-10 16:16] LABS: Arterial Blood Carboxyhemoglob 2.5 % (0-1.5); Blood Gas Oxyhemoglobin 92.4 % (94-97)
[2024-06-10 16:17] LABS: Blood Gas THB 7.8 g/dl (12-18)
--- NOTE | 2024-06-10 16:19 | P.DS ---
Admission Date: 06/10/24 Discharge Date: 06/10/24 Primary Care Provider: Noelle Disposition: HOSPICE-HOME Reason for Admission: Anemia - Problems (1) Complicated UTI (urinary tract infection) Current Visit: No Status: Acute (2) Diabetic neuropathy associated with type 2 diabetes mellitus Current Visit: No Status: Acute Qualifiers: (3) Anemia Current Visit: Yes Status: Acute Qualifiers: Anemia type: iron deficiency Iron deficiency anemia type: chronic blood loss Qualified Code(s): D50.0 - Iron deficiency anemia secondary to blood loss (chronic) (4) Upper GI bleed Current Visit: Yes Status: Acute (5) End of life care Current Visit: Yes Status: Acute Brief History of Present Illness: 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 He has a history of dm2, PVD. Chronic indwelling cather. Comes in with anemia. He has difficulty staying awake. Got a lot of sedatives in the ER. He has signs of infection/hematuria. Do not know if he has an PUD like symptoms. He is currently awaiting a transfusion Patient was in the ER the last 2 days compliainting of pain in the groin. He initially had his prajapati cath replaced. However he came back with the same groin pain today Hospital Course: Patient was admitted for UTI and anemia. He was having difficulty with being aroused. 2units of prbc did not increase his blood. The patient had a rapid re sponse. He was intubated and moved to the ICU. The patient woke up with oxygenation. He stated to his and family he does not intubation. he is tired of being in pain and being weak. He does not want cpr, shocks transfusion. Does not want to be transfered to [place] for EGD. Will comply with his wishes. Will extubate the patient. Stop antibiotics, pressors, and remove his ET tube. He also does not want an NG tube. Will transfer him to inpatient hospice care. Thank you for allowing me to take part in his care., Vital Signs/Physical Exam: Temp Pulse Resp BP Pulse Ox 98.2 F 97 H 21 H 98/56 L 98 06/10/24 15:48 06/10/24 15:48 06/10/24 16:01 06/10/24 15:48 06/10/24 16:01 Laboratory Data at Discharge: WBC 15.40 thou/uL (4.3-10.9) H 06/10/24 13:15 Hgb 7.3 g/dL (13.6-17.9) L 06/10/24 13:15 Hct 25.6 % (39.6-49.0) L 06/10/24 13:15 Plt Count 177 thou/uL (152-406) 06/10/24 13:15 Sodium 137 mEq/L (136-145) 06/10/24 13:15 Potassium 3.7 mEq/L (3.5-5.1) 06/10/24 13:15 BUN 14 mg/dL (7-18) 06/10/24 13:15 Creatinine < 0.25 mg/dL (0.70-1.30) L 06/10/24 13:15 Glucose 135 mg/dL (74-106) H 06/10/24 13:15 Total Bilirubin 0.8 mg/dL (0.2-1.0) 06/10/24 13:15 AST < 10 U/L (15-37) L 06/10/24 13:15 ALT < 14 U/L (16-61) L 06/10/24 13:15 Alkaline Phosphatase 87 U/L (45-117) 06/10/24 13:15 Lipase 26 U/L (13-75) 06/09/24 00:40 Home Medications: Metformin HCl [Glucophage*] 500 mg PO DAILY 03/24/23 Calcium Carbonate [Oyster Shell Calcium] 500 mg PO DAILY 01/12/24 Aspirin [Vazalore] 81 mg PO DAILY 06/09/24 Lisinopril [Zestril] 2.5 mg PO DAILY 06/09/24 Pregabalin [Lyrica*] 300 mg PO BEDTIME 06/09/24 Time spent managing pt's care (in minutes): 75
[2024-06-10] MEDS ORDERED: ETOMIDATE 20 MG/10 ML VIAL IV ONE (16:33)
[2024-06-10] MEDS ORDERED: SUCCINYLCHOLINE 20 MG/ML (10 ML) IV ONE (16:33)
[2024-06-10] MEDS ORDERED: ROCURONIUM 50 MG/5 ML VIAL IV ONE (16:33)
[2024-06-10 16:48] VITALS: BMI 42.7
--- NOTE | 2024-06-10 17:11 | RAD REPORT ---
EXAM DESCRIPTION: RADChest Single View06/10/2024 2:13 pm CLINICAL HISTORY: intubation COMPARISON: Chest Single View dated 04/12/2024; Chest Single View dated 01/11/2024; Chest Single View dated 03/24/2023; Chest Single View dated 01/01/2022; Abdomen Pelvis W Contrast dated 06/08/2024 TECHNIQUE: Portable AP view of the chest. FINDINGS: Stable to mildly progressive layering left moderate pleural effusion and left basilar airs pace opacification. Endotracheal tube has been placed, its tip projecting 4.9 cm above the carl. N o pneumothorax or effusion. The cardiomediastinal contours are unremarkable. IMPRESSION: Stable to mildly progressive left basilar airspace opacities and moderate effusion. Unde rlying pneumonia should be considered.
[2024-06-10] MEDS: LORazepam 2 MG/ML VIAL IV SCH (17:33)
[2024-06-10 22:31] VITALS: BP 114/50; TEMP 96.1
== END 2024-06-10 22:38 | disposition hospice, inpatient (51) | DRG 690 ==
LOC: ER 23:23 → ERHOLD 06-09 03:33 → 4TH 06-09 07:41 → 3RD-ICU 06-10 14:00 → OBSVTOIN 06-10 15:37
PROVIDERS: ADMIT Internal Medicine; ATTEND Internal Medicine
PROC: 30233N1 Transfusion of Nonautologous Red Blood Cells into Peripheral Vein, Percutaneous Approach (ICD-10-PCS; 2024-06-09)
PROC: 4A033R1 Measurement of Arterial Saturation, Peripheral, Percutaneous Approach (ICD-10-PCS; principal; 2024-06-10)
PROC: 5A1935Z Respiratory Ventilation, Less than 24 Consecutive Hours (ICD-10-PCS; 2024-06-10)
PROC: 0BH17EZ Insertion of Endotracheal Airway into Trachea, Via Natural or Artificial Opening (ICD-10-PCS; 2024-06-10)
DX: N30.01 Acute cystitis with hematuria (principal); Z16.20 Resistance to unspecified antibiotic; Z68.41 Body mass index [BMI] 40.0-44.9, adult; K92.2 Gastrointestinal hemorrhage, unspecified; E87.29 Other acidosis; D50.0 Iron deficiency anemia secondary to blood loss (chronic); E66.01 Morbid (severe) obesity due to excess calories; I10 Essential (primary) hypertension; E11.42 Type 2 diabetes mellitus with diabetic polyneuropathy; E11.51 Type 2 diabetes mellitus with diabetic peripheral angiopathy without gangrene; E78.5 Hyperlipidemia, unspecified; Z66 Do not resuscitate; Z79.4 Long term (current) use of insulin; Z51.5 Encounter for palliative care; Z74.01 Bed confinement status; Z79.82 Long term (current) use of aspirin; Z79.84 Long term (current) use of oral hypoglycemic drugs; Z86.73 Personal history of transient ischemic attack (TIA), and cerebral infarction without residual deficits; Z89.611 Acquired absence of right leg above knee; Z79.899 Other long term (current) drug therapy
CPT/HCPCS: 36415; 36600; 51702; 71045; 74177; 80048; 80053; 81001; 82728; 82805; 82947; 83540; 83690; 84466; 85014; 85018; 85025; 85044; 86850; 86900; 86901; 86920; 87040; 87086; 87088; 94002; 96361; 96365; 96366; 96374; 96375; 99285; G0378; J1170; J1650; J1940; J2185; J2405; J2543; J2704; J3010; J7030; J7040; J7050; J7060; P9016; Q9967

== ENCOUNTER 2024-06-10 22:44 | Inpatient (IN) | payer OTHER ==
[2024-06-11 00:18] VITALS: BMI 42.7
[2024-06-11] MEDS: LORazepam 2 MG/ML VIAL IV SCH (02:16)
[2024-06-11] MEDS: HYDROMORPHONE HCL 1 MG/ML INJ IV SCH (02:16)
--- NOTE | 2024-06-11 11:33 | P.PN ---
Subjective Date of Service: 06/11/24 Primary Care Provider: Noelle Subjective: Worsening Review of Systems is unable to be obtained Physical Examination - Vital Signs Temperature: 99.6 F Blood Pressure: 116/53 Pulse: 110 Respirations: 26 Pulse Ox (%): 49 - Physical Exam General: Unresponsive HEENT: Atraumatic, PERRLA, EOMI Neck: Supple, JVD not distended Respiratory: Clear to auscultation bilaterally, Normal air movement Cardiovascular: Regular rate/rhythm, Normal S1 S2 Gastrointestinal: Normal bowel sounds, No tenderness Musculoskeletal: No tenderness Integumentary: No rashes Neurological: Normal speech, Normal tone, Normal affect Lymphatics: No axilla or inguinal lymphadenopathy Assessment And Plan - Current Problems (Diagnosis) (1) Upper GI bleed Current Visit: Yes Status: Acute Plan: Patient refused GI intervention (2) Complicated UTI (urinary tract infection) Current Visit: No Status: Acute Plan: hold antibiotics in hospice (3) End of life care Current Visit: No Status: Acute Plan: plans for hospice. Most likely to in a few days Discharge Plan: Home Plan to discharge in: 48 Hours - Code Status/Comfort Care Code Status Assessed: No Physician Review: Patient Assessed, Agree with Above Assessment and Plan Time Spent Managing PTS Care (In Minutes): 20
--- NOTE | 2024-06-12 12:38 | P.PN ---
Subjective Date of Service: 06/12/24 Primary Care Provider: Noelle Subjective: Worsening (wakes up for pain. Otherwise is sleeping. Had a few sips of water) Review of Systems is unable to be obtained Physical Examination - Vital Signs Temperature: 97.8 F Blood Pressure: 129/63 Pulse: 87 Respirations: 16 Pulse Ox (%): 93 - Physical Exam General: Unresponsive HEENT: Atraumatic, PERRLA, EOMI Neck: Supple, JVD not distended Respiratory: Clear to auscultation bilaterally, Normal air movement Cardiovascular: Regular rate/rhythm, Normal S1 S2 Gastrointestinal: Normal bowel sounds, No tenderness Musculoskeletal: No tenderness Integumentary: No rashes Neurological: Normal speech, Normal tone, Normal affect Lymphatics: No axilla or inguinal lymphadenopathy Assessment And Plan - Current Problems (Diagnosis) (1) End of life care Current Visit: No Status: Acute Plan: plans for hospice. Most likely to in a few days 06/12 spent 30min answering the patients questions. They are moving towards acceptance. Do not think they want to take the patient home. Possible hospice house or a NH with hospice care. community service worker should be back tomorrow to help the the family with this (2) Upper GI bleed Current Visit: Yes Status: Acute Plan: Patient refused GI intervention (3) Complicated UTI (urinary tract infection) Current Visit: No Status: Acute Plan: hold antibiotics in hospice Discharge Plan: Home - Code Status/Comfort Care Code Status Assessed: Yes Code Status: Do Not Attempt Resuscitat Physician Review: Patient Assessed, Agree with Above Assessment and Plan Critical Care: No Time Spent Managing PTS Care (In Minutes): 30
--- OUTSIDE RECORDS SUMMARY | 2024-06-13 09:05 | XMS REPORT | Continuity of Care Document ---
Author Name Unknown Address [address] [facility] [address]. [address] [place] [address] [facility] thconnect Address [address] [facility]. [address] [place] [address] Care Team Providers Care Asbestos Handler Name Role Phone RIGOBRANDIN Primary Care Physician Unavailab ADA Mckeon Attending Clinician Unavail able ADA ROBBINS Attending Clinician Unavail able Tania Zimmerman Yijia Attending Clinician Unavailab May Carrasquillo Anavella Attending Cli JEANNIE Payne Attending Clinician Unavaila JULISA Maguire Attending Clinician Unavailabl e Doctor Unassigned, [place] Attending Clinician U jdable Veronica Truong PTA Attending Clinician Unavail able Julisa Duran MD Attending Clinician Logan Lance MD Attending Clinician [phone] Niyah Mckeon PT Attending Clinician Un available LOGAN LANCE Attending Clinician KATE Sandoval Attending Clinician Unavailable Nicolasa Castillo PT Attending Clinician Unavailab Tania Murcia Yijia Admitting Clinician Unavailab Marianne Carrasquillo, Reev Admitting Clinician U navailerika Payers Payer Name Policy Type Policy Number Effective Date Expirati on Date Source MEDICARE PART A \T\ B [id number] 2017 00:00:00 [facility] [id number] Problems Condition Name Condition Details Condition Category Status Onset Date Resolution Date Last Treatment Date Treating Clinician Comments Source Chronic edema Chronic edema Disease Active 2019-10 00:00: 00 [facility] Hx of AKA (above knee amputation ), 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 ), right Disease Active 2019-10 00:00: 00 [facility] Balanitis Balanitis Problem Comm on [facility] [id number] 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 Problem [facility] [id number] Acquired phimosis of penis Problem [facility] Leukoplaki a of penis BXO (balanitis xerotica obliterans ) Problem [facility] Allergies, Adverse Reactions, Alerts Allergy Name Allergy Type Status Severity Reaction(s) Onset Date Inactive Date Treating Clinician Comments Source NO KNOWN ALLERGIE S Drug Class Active [facility] Social History Social Habit Start Date Stop Date Quantity Comments Source History of Tobacco Use [facility] Sex Assigned At [facility] Alcohol intake 2020-06-25 00:00:00 2020-06-25 00:00:00 Ex-drinker (finding) [facility] Tobacco use and exposure 2019-11-25 00:00:00 2019-11-25 00:00:00 Smokeless tobacco non-user [facility] Smoking Status Start Date Stop Date Source Unknown if ever smoked [facility] Former Smoker 2024-05-11 00:00:00 2024-05-11 00:00:00 [facility] Never smoked tobacco [facility] Medications Ordered Medication Name Filled Medication Name Start Date Stop Date Current Medication? Ordering Clinician Indication Dosage Frequency Signature (SIG) Comments Components Source GLIPIZIDE 10 mg tablet 2020-10 0-26 00:00: 00 Yes [id number] TAKE ONE TABLET BY MOUTH DAILY [facility] GLIPIZIDE 10 mg tablet 2020-10 0-19 00:00: 00 Yes [id number] TAKE ONE TABLET BY MOUTH DAILY [facility] PIOGLITAZON E 30 mg tablet 07-15 00:00: 00 Yes TAKE ONE TABLET BY MOUTH DAILY [facility] TRIAMTERENE -HYDROCHLOR OTHIAZIDE 37.5-25 mg per capsule 07-15 00:00: 00 Yes [id number] TAKE ONE CAPSULE BY MOUTH EVERY MORNING [facility] BUMETANIDE 1 mg tablet 07-15 00:00: 00 Yes [id number] TAKE ONE TABLET BY MOUTH DAILY [facility] metFORMIN 500 mg tablet 06-25 00:00: 00 Yes [id number] TAKE ONE TABLET BY MOUTH TWICE A DAY WITH MEALS [facility] ATORVASTATI N 40 mg tablet 06-13 00:00: 00 Yes TAKE ONE TABLET BY MOUTH AT BEDTIME [facility] GLIPIZIDE 10 mg tablet 06-10 00:00: 00 08-13 00:00 :00 No [id number] TAKE ONE TABLET BY MOUTH DAILY [facility] BUMETANIDE 1 mg tablet 05-21 00:00: 00 Yes [id number] TAKE ONE TABLET BY MOUTH DAILY [facility] TRIAMTERENE -HYDROCHLOR OTHIAZIDE 37.5-25 mg per capsule 05-21 00:00: 00 Yes [id number] TAKE ONE CAPSULE BY MOUTH EVERY MORNING [facility] KCL 10 mEq tablet 05-15 00:00: 00 Yes [id number] TAKE ONE TABLET BY MOUTH DAILY [facility] metFORMIN 500 mg tablet 04-15 00:00: 00 06-25 00:00 :00 No [id number] TAKE ONE TABLET BY MOUTH TWICE A DAY WITH MEALS [facility] PIOGLITAZON E 30 mg tablet 16 00:00: 00 Yes TAKE ONE TABLET BY MOUTH DAILY [facility] exenatide microsphere s (BYDUREON) 2 mg/0.65 mL injection 4- 00:00: 00 Yes [id number] 2mg inject 0.65 mL under the skin weekly. [facility] traMADoL 50 mg tablet 01-11 00:00: 00 Yes [id number] 50mg Take 1 tablet by mouth every 6 (six) hours as needed for Pain (scale 4-6). Indication s: acute pain [facility] exenatide microsphere s 2 mg injection 01-11 00:00: 00 Yes [id number] 2mg inject 2 mg under the skin every 7 (seven) days. [facility] traMADol 50 mg tablet 12-21 00:00: 00 Yes [id number] 50mg Take 1 tablet by mouth every 6 (six) hours as needed (pain). [facility] exenatide microsphere s 2 mg injection 12-21 00:00: 00 Yes [id number] 2mg inject 2 mg under the skin every 7 (seven) days. [facility] metFORMIN 500 mg tablet 11-25 20:46: 55 Yes 500mg Take 500 mg by mouth 2 (two) times daily with meals. [facility] atorvastati n 40 mg tablet 11-25 20:46: 55 Yes 40mg Take 40 mg by mouth at bedtime. [facility] pioglitazon e 30 mg tablet 11-25 20:46: 55 Yes 30mg Take 30 mg by mouth daily. [facility] glipiZIDE 10 mg tablet 11-25 20:46: 55 Yes 10mg Take 10 mg by mouth daily. [facility] amoxicillin -clavulanat e (AUGMENTIN) 875-125 mg per tablet 11-25 00:00: 00 12-21 00:00 :00 No [id number] 1{tbl} Take 1 tablet by mouth 2 (two) times daily. [facility] sulfamethox azole-trime thoprim 800-160 mg per tablet 11-25 00:00: 00 12-21 00:00 :00 No [id number] 1{tbl} Take 1 tablet by mouth 2 (two) times daily. [facility] traMADol 50 mg tablet 11-25 00:00: 00 12-21 00:00 :00 No [id number] 50mg Take 1 tablet by mouth every 6 (six) hours as needed (pain). [facility] Furosemide 40 MG Furosemide 40 MG [...] MG No known medications No Un senthil [facility] Tamsulosin HCl 0.4 MG Tamsulosin HCl 0.4 MG No 1{capsu le} QD Tamsulosin HCl 0.4 MG Gabapentin 300 MG Gabapentin 300 MG No 1{capsu le} QD Gabapentin 300 MG Vital Signs Vital Name Observation Time Observation Value Comments S ource height 2024-02-17 13:30:00 72 [in_i] Commo n [facility] weight 2024-02-17 13:30:00 340.0 [lb_av] Co mmon [facility] temperature 2024-02-17 13:30:00 98.5 [degF] Com mon [facility] bmi 2024-02-17 13:30:00 46.11 kg/m2 Comm on [facility] oximetry 2024-02-17 13:30:00 95 % Commo n [facility] respiratory rate 2024-02-17 13:30:00 16 /min [facility] blood pressure systolic 2024-02-17 13:30:00 173 mm[Hg] [facility] blood pressure diastolic 2024-02-17 13:30:00 83 mm[Hg] [facility] Systolic blood pressure 2019-12-21 17:49:00 110 mm[Hg] [facility] Diastolic blood pressure 2019-12-21 17:49:00 41 mm[Hg] [facility] Heart rate 2019-12-21 17:49:00 79 /min Un[facility] Body temperature 2019-12-21 17:49:00 36.78 Yesenia [facility] Respiratory rate 2019-12-21 17:49:00 18 /min [facility] Procedures Procedure Date / Time Performed Performing Clinician Source REFERRAL- REQUEST/RESPONSE 2023-04-20 05:01:00 Doctor Unassigned, [place] [facility] ASSIGNMENT OF BENEFITS 2022-03-26 12:52:53 Docto r Unassigned, [place] [facility] REFERRAL- REQUEST/RESPONSE 2022-03-12 05:01:00 Doctor Unassigned, [place] [facility] PATIENT QUESTIONNAIRE 2019-11-22 06:01:00 Doctor Unassigned, [place] [facility] REFERRAL- REQUEST/RESPONSE 2019-11-11 06:01:00 Doctor Unassigned, [place] [facility] Encounters Start Date/Time End Date/Time Encounter Type Admission Type Attending [facility] Care Facility Care Department Encounter ID Source 2024-04-13 11:58:00 Outpatient [facility] [id number] [facility] 2024-02-17 12:35:00 Outpatient [facility] [id number] [facility] 2021-08-23 14:59:58 Emergency [facility] [id number] [facility] 2019-11-28 08:29:26 Outpatient [facility] [id number] [facility] 2024-05-11 00:00:00 2024-05-11 00:00:00 ([place]) Nurse Visit ST[facility] ST[facility] [id number] [facility] 2024-04-08 11:00:00 2024-04-08 11:00:00 Outpatient ADA AGUIRRE HOWARD [facility] [id number] [facility] 2024-04-06 00:00:00 2024-04-06 00:00:00 (TEL) STLMLC STLC [id number] [facility] 2024-03-07 00:00:00 2024-03-07 00:00:00 ([place]) Nurse Visit STLMLC STLMLC [id number] [facility] 2024-02-29 00:00:00 2024-02-29 00:00:00 (TEL) STLMLC STLMLC [id number] [facility] 2024-02-23 00:00:00 2024-02-23 00:00:00 ([place]) Nurse Visit STLMLC STLMLC [id number] [facility] 2024-02-17 00:00:00 2024-02-17 00:00:00 OFFICE VISIT ESTAB PT LEVEL 3 STLMLC STLMLC [id number] [facility] 2024-01-13 18:01:00 2024-01-30 11:57:00 Inpatient 3 Tania Zimmerman ENCPL SCN [id number] [facility] [place] [facility] 2023-11-07 22:28:00 2023-11-23 15:20:00 Inpatient 3 [facility] Mya escoto ENCPL EULALIO [id number] [facility] [place] 2023-06-05 08:45:00 2023-06-05 08:45:00 Outpatient R JULISA DURAN [facility] [id number] [facility] 2023-04-20 00:00:00 2023-04-20 00:00:00 Orders Only Doctor Unassigned, [place] [facility] .840.114 350.1.13.10 4.2.7.2.686 [id number] [id number] [facility] 2023-04-14 00:00:00 2023-04-14 00:00:00 Telephone Veronica Truong [facility] 1..840.114 350.1.13.10 4.2.7.2.686 [id number] [facility] 2022-08-21 08:00:00 2022-08-21 09:19:07 Outpatient R JULISA DURAN [facility] [id number] [facility] 2022-08-21 08:00:00 2022-08-21 09:19:07 Ancillary Visit Veronica Truong Craig [facility] 1.2.840.114 350.1.13.10 4.2.7.2.686 [id number] [facility] 2022-08-14 08:00:00 2022-08-14 09:36:02 Ancillary Visit Veronica Truong Craig L [facility] BUILDING 1.2.840.114 350.1.13.10 4.2.7.2.686 [id number] [facility] 2022-08-07 08:00:00 2022-08-07 09:00:00 Ancillary Visit Veronica Truong Craig L [facility] BU[facility] 1.2.840.114 350.1.13.10 4.2.7.2.686 [id number] 179 [id number] [facility] 2022-07-17 08:00:00 2022-07-17 10:33:07 Ancillary Visit Veronica Truong Craig L [facility] BU[facility] 1.2.840.114 350.1.13.10 4.2.7.2.686 [id number] [facility] 2022-07-11 08:00:00 2022-07-11 09:09:53 Ancillary Visit Veronica Truong Craig L [facility] BUILD[facility] 1.2.840.114 350.1.13.10 4.2.7.2.686 [id number] 179 [id number] [facility] 2022-07-09 08:00:00 2022-07-09 09:22:42 Ancillary Visit Veronica Truong Craig L [facility] BU[facility] 1.2.840.114 350.1.13.10 4.2.7.2.686 [id number] [facility] 2022-07-03 08:00:00 2022-07-03 09:28:51 Ancillary Visit Veronica Truong Craig L [facility] BU[facility] 1.2.840.114 350.1.13.10 4.2.7.2.686 [id number] [facility] 2022-07-01 08:00:00 2022-07-01 09:42:36 Outpatient R JULISA DURAN [facility] [id number] [facility] 2022-07-01 08:00:00 2022-07-01 09:42:36 Ancillary Visit Veronica Truong Craig L [facility] BU[facility] 1.2.840.114 350.1.13.10 4.2.7.2.686 [id number] [facility] 2022-06-25 08:00:00 2022-06-25 10:05:28 Ancillary Visit Veronica Truong Craig L [facility] BU[facility] 1.2.840.114 350.1.13.10 4.2.7.2.686 [id number] [facility] 2022-06-20 08:00:00 2022-06-20 09:40:30 Ancillary Visit Veronica Truong Craig L [facility] 1.2.840.114 350.1.13.10 4.2.7.2.686 [id number] [facility] 2022-06-18 08:00:00 2022-06-18 09:36:15 Ancillary Visit Veronica Truong Craig L [facility] 1.2.840.114 350.1.13.10 4.2.7.2.686 [id number] [facility] 2022-06-13 08:00:00 2022-06-13 08:45:00 Ancillary Visit Veronica Truong Craig L [facility] 1.2.840.114 350.1.13.10 4.2.7.2.686 [id number] [facility] 2022-06-10 08:45:00 2022-06-10 09:30:00 Ancillary Visit Veronica Truong Craig L [facility] 1.2.840.114 350.1.13.10 4.2.7.2.686 [id number] [facility] 2022-06-06 08:00:00 2022-06-06 10:23:06 Ancillary Visit Veronica Truong Craig L [facility] 1.2.840.114 350.1.13.10 4.2.7.2.686 [id number] [facility] 2022-06-04 08:00:00 2022-06-04 09:29:06 Ancillary Visit Veronica Truong Craig L [facility] 1.2.840.114 350.1.13.10 4.2.7.2.686 [id number] [facility] 2022-05-30 08:00:00 2022-05-30 10:18:46 Ancillary Visit Veronica Truong Craig L [facility] 1.2.840.114 350.1.13.10 4.2.7.2.686 [id number] [facility] 2022-05-28 08:00:00 2022-05-28 10:30:25 Outpatient R JULISA DURAN [facility] [id number] [facility] 2022-05-28 08:00:00 2022-05-28 08:45:00 Ancillary Visit Veronica Truong Craig [facility] 1.2.840.114 350.1.13.10 4.2.7.2.686 [id number] 179 [id number] [facility] 2022-05-23 08:00:00 2022-05-23 09:06:40 Ancillary Visit Veronica Truong Craig L [facility] 1.2.840.114 350.1.13.10 4.2.7.2.686 [id number] [facility] 2022-05-09 09:30:00 2022-05-09 10:33:51 Ancillary Visit Veronica TruongonaldJulisa [facility] 1.2.840.114 350.1.13.10 4.2.7.2.686 [id number] [facility] 2022-05-07 10:15:00 2022-05-07 11:02:32 Ancillary Visit Veronica Truong Craig L [facility] 1.2.840.114 350.1.13.10 4.2.7.2.686 [id number] [facility] 2022-05-05 00:00:00 2022-05-05 00:00:00 Logan Bergman [facility] 1.2.840.114 350.1.13.10 4.2.7.2.686 [id number] [facility] 2022-05-05 00:00:00 2022-05-05 00:00:00 Logan Bergman [facility] 1.2.840.114 350.1.13.10 4.2.7.2.686 [id number] [facility] 2022-04-30 08:45:00 2022-04-30 08:45:00 Outpatient R JULISA DURAN [facility] [id number] [facility] 2022-04-30 00:00:00 2022-04-30 00:00:00 Case Management Veronica Truong [facility] 1.2.840.114 350.1.13.10 4.2.7.2.686 [id number] [facility] 2022-04-24 14:30:00 2022-04-24 15:42:45 Ancillary Visit Veronica Truong Craig L [facility] 1.2.840.114 350.1.13.10 4.2.7.2.686 [id number] [facility] 2022-04-17 08:00:00 2022-04-17 09:00:00 Ancillary Visit Veronica Truong Craig L [facility] 1.2.840.114 350.1.13.10 4.2.7.2.686 [id number] [facility] 2022-04-11 08:00:00 2022-04-11 09:00:00 Ancillary Visit Veronica Truong Craig L [facility] 1.2.840.114 350.1.13.10 4.2.7.2.686 [id number] [facility] 2022-04-09 08:00:00 2022-04-09 09:00:00 Ancillary Visit Veronica Truong Craig L [facility] 1.2.840.114 350.1.13.10 4.2.7.2.686 [id number] [facility] 2022-04-04 08:00:00 2022-04-04 09:00:00 Ancillary Visit Veronica Truong Craig L [facility] 1.2.840.114 350.1.13.10 4.2.7.2.686 [id number] [facility] 2022-04-01 08:00:00 2022-04-01 09:00:00 Ancillary Visit Veronica Truong Craig L [facility] 1.2.840.114 350.1.13.10 4.2.7.2.686 [id number] [facility] 2022-03-26 08:00:00 2022-03-26 10:37:03 Outpatient R JULISA DURAN [facility] [id number] [facility] 2022-03-26 08:00:00 2022-03-26 10:37:03 Ancillary Visit Niyah Mckeon Craig L [facility] 1.2840.114 350.1.13.10 4.2.7.2.686 [id number] [facility] 2022-03-26 00:00:00 2022-03-26 00:00:00 Orders Only Doctor Unassigned, [place] [facility] 1.2840.114 350.1.13.10 4.2.7.2.686 [id number] [facility] 2022-03-12 00:00:00 2022-03-12 00:00:00 Orders Only Doctor Unassigned, [place] [facility] 1.2840.114 350.1.13.10 4.2.7.2.686 [id number] [facility] 2022-02-10 00:00:2022-02-10 00:00:00 Logan Bergman [facility] NAL BUILDING 1.2.840.114 350.1.13.10 4.2.7.2.686 [id number] [facility] 2021-11-29 00:00:00 2021-11-29 00:00:[address] [facility] 1.2.840.114 350.1.13.10 4.2.7.2.686 [id number] [facility] 2021-09-12 00:00:00 2021-09-12 00:00:00 [facility] 1.2.840.114 350.1.13.10 4.2.7.2.686 [id number] [id number] [facility] 2021-08-19 00:00:00 2021-08-19 00:00:00 [facility] 1.2.840.114 350.1.13.10 4.2.7.2.686 [id number] [facility] 2021-08-13 00:00:00 2021-08-13 00:00:00 [facility] 1.2.840.114 350.1.13.10 4.2.7.2.686 [id number] 044 [id number] [facility] 2021-07-13 00:00:00 2021-07-13 00:00:00 Logan Bergman [facility] 1.2.840.114 350.1.13.10 4.2.7.2.686 [id number] [facility] 2021-06-24 00:00:00 2021-06-24 00:00:00 Vita Logan Lance [facility] Julissa yad[facility] Building 1.2.840.114 350.1.13.10 4.2.7.2.686 [id number] [facility] 2020-09-05 10:15:00 2020-09-05 10:15:00 Outpatient LOGAN HESTER [facility] [id number] [facility] 2020-06-25 11:40:00 2020-06-25 11:40:00 Outpatient KATE GOMEZ [facility] [id number] [facility] 2020-06-06 15:45:00 2020-06-06 15:45:00 Outpatient LOGAN HESTER [facility] [id number] [facility] 2020-05-09 16:15:00 2020-05-09 16:15:00 Outpatient LOGAN HESTER [facility] [id number] [facility] 2020-03-20 09:15:00 2020-03-20 09:15:00 Outpatient LOGAN HESTER [facility] [id number] [facility] 2020-01-25 11:00:00 2020-01-25 11:00:00 Outpatient JULISA AREVALO [facility] [id number] [facility] 2019-12-29 09:20:00 2019-12-29 09:20:00 Outpatient JULISA AREVALO [facility] [id number] [facility] 2019-12-21 11:42:25 2019-12-21 11:57:25 [facility] 1.2.840.114 350.1.13.10 4.2.7.2.686 [id number] [facility] 2019-12-21 11:30:00 2019-12-21 11:30:00 Outpatient LOGAN HESTER [facility] [id number] [facility] 2019-12-20 09:00:00 2019-12-20 09:00:00 Outpatient R [facility] [id number] [facility] 2019-12-16 10:07:00 2019-12-16 11:07:00 Ancillary Visit Veronica Truong [facility] 1.2.840.114 350.1.13.10 4.2.7.2.686 [id number] [facility] 2019-12-14 09:52:14 2019-12-14 10:52:14 Ancillary Visit Veronica Truong Craig L [facility] nal Building 1.2.840.114 350.1.13.10 4.2.7.2.686 [id number] [facility] 2019-12-09 08:52:58 2019-12-09 10:16:26 Ancillary Visit Veronica Truong Craig L [facility] nal Building 1.2.840.114 350.1.13.10 4.2.7.2.686 [id number] [facility] 2019-12-07 08:58:57 2019-12-07 09:58:57 Ancillary Visit Veronica Truong Craig L [facility] nal Building 1.2.840.114 350.1.13.10 4.2.7.2.686 [id number] [facility] 2019-12-02 08:47:35 2019-12-02 09:47:35 Ancillary Visit Veronica Truong Craig L [facility] nal Building 1.2.840.114 350.1.13.10 4.2.7.2.686 [id number] [facility] 2019-11-18 09:11:00 2019-11-30 12:53:31 Ancillary Visit Nicolasa Castillo Craig L [facility] 1.2.840.114 350.1.13.10 4.2.7.2.686 [id number] [facility] 2019-11-30 08:42:50 2019-11-30 09:42:50 Ancillary Visit Veronica Truong Julisa Duran [facility] 1.2.840.114 350.1.13.10 4.2.7.2.686 [id number] [facility] 2019-11-24 08:48:05 2019-11-24 15:06:52 Ancillary Visit Veronica Truong Julisa Guzmán [facility] 1.2.840.114 350.1.13.10 4.2.7.2.686 [id number] [facility] 2019-11-22 08:37:05 2019-11-22 11:36:52 Ancillary Visit Veronica Truong Julisa Guzmán [facility] 1.2.840.114 350.1.13.10 4.2.7.2.686 [id number] [facility] 2019-11-22 00:00:00 2019-11-22 00:00:00 Orders Only Doctor Unassigned, [place] [facility] 1.2.840.114 350.1.13.10 4.2.7.2.686 [id number] [facility] 2019-11-11 00:00:00 2019-11-11 00:00:00 Orders Only Doctor Unassigned, [place] [facility] 1.2.840.114 350.1.13.10 4.2.7.2.686 [id number] [facility] 2019-10-30 03:07:00 2019-10-30 15:15:00 Inpatient E [facility] [id number] [facility] Results Test Description Test Time Test Comments Results Result Co mments Source [facility] (DIFF/PLT)2024-01-29 11:38:00* Test Item Value Reference Range Interpretation Comme nts WHITE BLOOD CELL COUNT (test code = 18637479) 5.8 Thousand/uL 3.8-10.8 N RED BLOOD CELL COUNT (test code = 89364777) 4.66 Million/uL 4.20-5.80 N HEMOGLOBIN (test code = 61714646) 11.5 g/dL 13.2-17.1 L HEMATOCRIT (test code = 94152120) 38.1 % 38.5-50.0 L MCV (test code = 41571488) 81.8 fL 80.0-100.0 N MCH (test code = 43639602) 24.7 pg 27.0-33.0 L MCHC (test code = 29603677) 30.2 g/dL 32.0-36.0 L RDW (test code = 73935351) 15.4 % 11.0-15.0 H PLATELET COUNT (test code = 51480960) 141 Thousand/uL 140-400 N MPV (test code = 20923836) fL 7.5-12.5 N Due to platelet or RBC variability in size or shapethe result cannot be reported accurately. ABSOLUTE NEUTROPHILS (test code = 51369941) 3695 cells/uL 6792-5650 N ABSOLUTE LYMPHOCYTES (test code = 26848873) 1630 cells/uL 850-3900 N ABSOLUTE MONOCYTES (test code = 19370036) 220 cells/uL 200-950 N ABSOLUTE EOSINOPHILS (test code = 58276207) 226 cells/uL 15-500 N ABSOLUTE BASOPHILS (test code = 91348769) 29 cells/uL 0-200 N NEUTROPHILS (test code = 60502596) 63.7 % N LYMPHOCYTES (test code = 18127041) 28.1 % N MONOCYTES (test code = 22375189) 3.8 % N EOSINOPHILS (test code = 53046871) 3.9 % N BASOPHILS (test code = 89936484) 0.5 % N [facility] MET [id number] 13:55:00* Test Item Value Reference Range Interpretation Comme nts GLUCOSE (test code = 86844057) 147 mg/dL 65-99 H Fasting referenc e interval For someone without known diabetes, a glucosevalue >125 mg/dL indicates that they may havediabetes and this should be confirmed with afollow-up test. UREA NITROGEN (BUN) (test code = 50237377) 12 mg/dL 7-25 N CREATININE (test code = 18117178) 0.46 mg/dL 0.70-1.30 L EGFR (test code = 13993138) 121 mL/min/1.73m2 >=60 N BUN/CREATININE RATIO (test code = 42699382) 26 (calc) 6-22 H SODIUM (test code = 58422124) 136 mmol/L 135-146 N POTASSIUM (test code = 69199931) 3.9 mmol/L 3.5-5.3 N CHLORIDE (test code = 67103886) 99 mmol/L 98-110 N CARBON DIOXIDE (test code = 29735821) 28 mmol/L 20-32 N CALCIUM (test code = 40148275) 8.9 mg/dL 8.6-10.3 N [facility]24-[facility]-19 13:55:00* Test Item Value Reference Range Interpretation Comme nts WHITE BLOOD CELL COUNT (test code = 00862764) 6.8 Thousand/uL 3.8-10.8 N RED BLOOD CELL COUNT (test code = 78456974) 4.73 Million/uL 4.20-5.80 N HEMOGLOBIN (test code = 49264485) 11.7 g/dL 13.2-17.1 L HEMATOCRIT (test code = 91243788) 38.0 % 38.5-50.0 L MCV (test code = 03914285) 80.3 fL 80.0-100.0 N MCH (test code = 07209467) 24.7 pg 27.0-33.0 L MCHC (test code = 59294576) 30.8 g/dL 32.0-36.0 L RDW (test code = 15304475) 15.3 % 11.0-15.0 H PLATELET COUNT (test code = 01386724) 141 Thousand/uL 140-400 N MPV (test code = 03294975) fL 7.5-12.5 N Due to platelet or RBC variability in size or shapethe result cannot be reported accurately. ABSOLUTE NEUTROPHILS (test code = 85632712) 5005 cells/uL 2424-8614 N ABSOLUTE LYMPHOCYTES (test code = 28167365) 1251 cells/uL 850-3900 N ABSOLUTE MONOCYTES (test code = 02785520) 272 cells/uL 200-950 N ABSOLUTE EOSINOPHILS (test code = 39428256) 252 cells/uL 15-500 N ABSOLUTE BASOPHILS (test code = 50322673) 20 cells/uL 0-200 N NEUTROPHILS (test code = 97064186) 73.6 % N LYMPHOCYTES (test code = 21837085) 18.4 % N MONOCYTES (test code = 35946498) 4.0 % N EOSINOPHILS (test code = 02883848) 3.7 % N BASOPHILS (test code = 25806673) 0.3 % N [facility] [id number] 18:17:00* Test Item Value Reference Range Interpretation Comments HEMOGLOBIN A1c (test code = 76892193) 7.0 % of total Hgb <5.7 H For someone without known diabetes, a hemoglobin N2omxdyj of 6.5% or greater indicates that they [...] 09/07/23, a change in test platforms from theGiritech to the Kathy viviane c503 may have [id number] results compared to historical results.[facility], the Kathy platform relative to the buySAFEform had an average increase in HbA1c value of< or = 0.3%. This difference is within accepted variability established by the National GlycohemoglobinStandardization Program. Note that not all individualswill have had a shift in their results and directcomparisons between historical and current results fortesting conducted on different platforms is notrecommended. [facility] META [id number] 15:13:00* Test Item Value Reference Range Interpretation Comme nts GLUCOSE (test code = 71252366) 132 mg/dL 65-99 H Fasting referenc e interval For someone without known diabetes, a glucosevalue >125 mg/dL indicates that they may havediabetes and this should be confirmed with afollow-up test. UREA NITROGEN (BUN) (test code = 74411897) 9 mg/dL 7-25 N CREATININE (test code = 72260561) 0.47 mg/dL 0.70-1.30 L EGFR (test code = 16736638) 120 mL/min/1.73m2 >=60 N BUN/CREATININE RATIO (test code = 46873104) 19 (calc) 6-22 N SODIUM (test code = 61789755) 140 mmol/L 135-146 N POTASSIUM (test code = 84227102) 4.1 mmol/L 3.5-5.3 N CHLORIDE (test code = 04535076) 101 mmol/L 98-110 N CARBON DIOXIDE (test code = 53260175) 31 mmol/L 20-32 N CALCIUM (test code = 34996549) 9.2 mg/dL 8.6-10.3 N PROTEIN, TOTAL (test code = 36987433) 6.6 g/dL 6.1-8.1 N ALBUMIN (test code = 36202286) 3.5 g/dL 3.6-5.1 L GLOBULIN (test code = 94663060) 3.1 g/dL (calc) 1.9-3.7 N ALBUMIN/GLOBULIN RATIO (test code = 40206692) 1.1 (calc) 1.0-2.5 N BILIRUBIN, TOTAL (test code = 52414332) 0.8 mg/dL 0.2-1.2 N ALKALINE PHOSPHATASE (test code = 32711472) 107 U/L 35-144 N AST (test code = 88064669) 10 U/L 10-35 N ALT (test code = 26422371) 15 U/L 9-46 N [facility] (DIFF[facility]PLT[facility]2024-01-14 15:13:00* Test Item Value Reference Range Interpretation Comme nts WHITE BLOOD CELL COUNT (test code = 45283521) 6.9 Thousand/uL 3.8-10.8 N RED BLOOD CELL COUNT (test code = 68003718) 4.47 Million/uL 4.20-5.80 N HEMOGLOBIN (test code = 85307281) 10.9 g/dL 13.2-17.1 L HEMATOCRIT (test code = 90304705) 35.5 % 38.5-50.0 L MCV (test code = 26620064) 79.4 fL 80.0-100.0 L MCH (test code = 76930442) 24.4 pg 27.0-33.0 L MCHC (test code = 97653423) 30.7 g/dL 32.0-36.0 L RDW (test code = 02700576) 14.8 % 11.0-15.0 N PLATELET COUNT (test code = 75348581) 141 Thousand/uL 140-400 N MPV (test code = 42959476) 13.2 fL 7.5-12.5 H ABSOLUTE NEUTROPHILS (test code = 59824102) 4837 cells/uL 1590-3037 N ABSOLUTE LYMPHOCYTES (test code = 49592948) 1559 cells/uL 850-3900 N ABSOLUTE MONOCYTES (test cod e = 99440319) 290 cells/uL 200-950 N ABSOLUTE EOSINOPHILS (test code = 12583473) 193 cells/uL 15-500 N ABSOLUTE BASOPHILS (test cod e = 11409998) 21 cells/uL 0-200 N NEUTROPHILS (test code = 36386273) 70.1 % N LYMPHOCYTES (test code = 99829411) 22.6 % N MONOCYTES (test code = 18299055) 4.2 % N EOSINOPHILS (test code = 28159056) 2.8 % N BASOPHILS (test code = 24030471) 0.3 % N [facility] TIME WITH [id number] 11:00:00* Test Item Value Reference Range Interpretation Comme nts INR (test code = 91698162) 1.1 N Reference Range 0.9-1.1Moderate-intensity Warfarin Therapy 2.0-3.0Higher-intensity Warfarin Therapy 3.0-4.0 PT (test code = 84120492) 11.9 sec 9.0-11.5 H For additional information, please refer [email or web address] (This link is being provided for informational/educational purposes only.) [facility] [id number] 14:10:00* Test Item Value Reference Range Interpretation Comme nts GLUCOSE (test code = 64915084) 120 mg/dL 65-99 H Fasting referenc e interval For someone without known diabetes, a glucose valuebetween 100 and 125 mg/dL is consistent withprediabetes and should be confirmed with afollow-up test. UREA NITROGEN (BUN) (test code = 83004915) 24 mg/dL 7-25 N CREATININE (test code = 75015885) 0.73 mg/dL 0.70-1.30 N EGFR (test code = 27501619) 105 mL/min/1.73m2 >=60 N BUN/CREATININE RATIO (test code = 62889082) SEE NOTE: (calc) 6-22 N Not Reported: BUN an d Creatinine are within reference range. SODIUM (test code = 71290317) 138 mmol/L 135-146 N POTASSIUM (test code = 30647407) 4.3 mmol/L 3.5-5.3 N CHLORIDE (test code = 38470780) 101 mmol/L 98-110 N CARBON DIOXIDE (test code = 62116421) 27 mmol/L 20-32 N CALCIUM (test code = 79488785) 8.7 mg/dL 8.6-10.3 N [facility]2023-11-19 14:10:00* Test Item Value Reference Range Interpretation Comme [facility] WHITE BLOOD CELL COUNT (test code = 86430278) 7.3 Thousand/uL 3.8-10.8 N RED BLOOD CELL COUNT (test code = 82136962) 4.24 Million/uL 4.20-5.80 N HEMOGLOBIN (test code = 82761084) 10.3 g/dL 13.2-17.1 L HEMATOCRIT (test code = 29578708) 34.0 % 38.5-50.0 L MCV (test code = 91633332) 80.2 fL 80.0-100.0 N MCH (test code = 67795272) 24.3 pg 27.0-33.0 L MCHC (test code = 18923127) 30.3 g/dL 32.0-36.0 L RDW (test code = 04266876) 14.5 % 11.0-15.0 N PLATELET COUNT (test code = 40450678) 166 Thousand/uL 140-400 N MPV (test code = 22310466) fL 7.5-12.5 N Due to platelet or RBC variability in size or shapethe result cannot be reported accurately. ABSOLUTE NEUTROPHILS (test code = 13122778) 5015 cells/uL 1611-2398 N ABSOLUTE LYMPHOCYTES (test code = 83685071) 1657 cells/uL 850-3900 N ABSOLUTE MONOCYTES (test code = 11843035) 321 cells/uL 200-950 N ABSOLUTE EOSINOPHILS (test code = 34438482) 277 cells/uL 15-500 N ABSOLUTE BASOPHILS (test code = 42759118) 29 cells/uL 0-200 N NEUTROPHILS (test code = 00111817) 68.7 % N LYMPHOCYTES (test code = 11705104) 22.7 % N MONOCYTES (test code = 05318616) 4.4 % N EOSINOPHILS (test code = 90417433) 3.8 % N BASOPHILS (test code = 79156320) 0.4 % N [facility] MET [id number] 13:21:00* Test Item Value Reference Range Interpretation Comme nts GLUCOSE (test code = 39337464) 77 mg/dL 65-99 N Fasting referenc e interval UREA NITROGEN (BUN) (test code = 09708046) 15 mg/dL 7-25 N CREATININE (test code = 48805440) 0.79 mg/dL 0.70-1.30 N EGFR (test code = 69248494) 103 mL/min/1.73m2 >=60 N BUN/CREATININE RATIO (test code = 53640378) SEE NOTE: (calc) 6-22 N Not Reported: BUN and Creatinine are within reference range. SODIUM (test code = 07647348) 138 mmol/L 135-146 N POTASSIUM (test code = 42782961) 4.2 mmol/L 3.5-5.3 N CHLORIDE (test code = 99736557) 101 mmol/L 98-110 N CARBON DIOXIDE (test code = 97701279) 28 mmol/L 20-32 N CALCIUM (test code = 16306101) 8.9 mg/dL 8.6-10.3 N [facility] (DIFF/PLT)2023-11-16 13:21:00* Test Item Value Reference Range Interpretation Comme nts WHITE BLOOD CELL COUNT (test code = 36189697) 7.1 Thousand/uL 3.8-10.8 N RED BLOOD CELL COUNT (test code = 27594726) 4.30 Million/uL 4.20-5.80 N HEMOGLOBIN (test code = 21969951) 10.4 g/dL 13.2-17.1 L HEMATOCRIT (test code = 78437026) 34.6 % 38.5-50.0 L MCV (test code = 66090184) 80.5 fL 80.0-100.0 N MCH (test code = 17281929) 24.2 pg 27.0-33.0 L MCHC (test code = 48977460) 30.1 g/dL 32.0-36.0 L RDW (test code = 03973003) 14.5 % 11.0-15.0 N PLATELET COUNT (test code = 16196027) 154 Thousand/uL 140-400 N MPV (test code = 01840828) fL 7.5-12.5 N Due to platelet or RBC variability in size or shapethe result cannot be reported accurately. ABSOLUTE NEUTROPHILS (test code = 42653773) 4665 cells/uL 0449-8325 N ABSOLUTE LYMPHOCYTES (test code = 64230207) 1818 cells/uL 850-3900 N ABSOLUTE MONOCYTES (test code = 90558810) 320 cells/uL 200-950 N ABSOLUTE EOSINOPHILS (test code = 41419107) 270 cells/uL 15-500 N ABSOLUTE BASOPHILS (test code = 31309349) 28 cells/uL 0-200 N NEUTROPHILS (test code = 73101866) 65.7 % N LYMPHOCYTES (test code = 87576108) 25.6 % N MONOCYTES (test code = 88162258) 4.5 % N EOSINOPHILS (test code = 43746084) 3.8 % N BASOPHILS (test code = 98444598) 0.4 % N [facility] MET [id number] 12:29:00* Test Item Value Reference Range Interpretation Comme nts GLUCOSE (test code = 04001880) 103 mg/dL 65-99 H Fasting referenc e interval For someone without known diabetes, a glucose valuebetween 100 and 125 mg/dL is consistent withprediabetes and should be confirmed with afollow-up test. UREA NITROGEN (BUN) (test code = 50321760) 17 mg/dL 7-25 N CREATININE (test code = 61168297) 0.93 mg/dL 0.70-1.30 N EGFR (test code = 04200125) 95 mL/min/1.73m2 >=60 N BUN/CREATININE RATIO (test code = 45969914) SEE NOTE: (calc) 6-22 N Not Reported: BUN an d Creatinine are within reference range. SODIUM (test code = 79319542) 139 mmol/L 135-146 N POTASSIUM (test code = 43816190) 4.4 mmol/L 3.5-5.3 N CHLORIDE (test code = 36860352) 104 mmol/L 98-110 N CARBON DIOXIDE (test code = 16378483) 27 mmol/L 20-32 N CALCIUM (test code = 85483381) 8.3 mg/dL 8.6-10.3 L [facility] (DIFF/PLT)2023-11-12 12:29:00* Test Item Value Reference Range Interpretation Comme nts WHITE BLOOD CELL COUNT (test code = 20769530) 6.5 Thousand/uL 3.8-10.8 N RED BLOOD CELL COUNT (test code = 96944288) 4.12 Million/uL 4.20-5.80 L HEMOGLOBIN (test code = 34321118) 10.0 g/dL 13.2-17.1 L HEMATOCRIT (test code = 63552925) 32.9 % 38.5-50.0 L MCV (test code = 04434364) 79.9 fL 80.0-100.0 L MCH (test code = 97220424) 24.3 pg 27.0-33.0 L MCHC (test code = 10980677) 30.4 g/dL 32.0-36.0 L RDW (test code = 61531785) 14.5 % 11.0-15.0 N PLATELET COUNT (test code = 51991210) 146 Thousand/uL 140-400 N MPV (test code = 02926891) fL 7.5-12.5 N Due to platelet or RBC variability in size or shapethe result cannot be reported accurately. ABSOLUTE NEUTROPHILS (test code = 07904795) 4368 cells/uL 8655-0947 N ABSOLUTE LYMPHOCYTES (test code = 12405197) 1599 cells/uL 850-3900 N ABSOLUTE MONOCYTES (test code = 40353641) 280 cells/uL 200-950 N ABSOLUTE EOSINOPHILS (test code = 39226568) 241 cells/uL 15-500 N ABSOLUTE BASOPHILS (test code = 10567226) 13 cells/uL 0-200 N NEUTROPHILS (test code = 98108869) 67.2 % N LYMPHOCYTES (test code = 94834520) 24.6 % N MONOCYTES (test code = 54220577) 4.3 % N EOSINOPHILS (test code = 89353587) 3.7 % N BASOPHILS (test code = 16884443) 0.2 % N [facility] [id number] 21:25:00* Test Item Value Reference Range Interpretation Comme nts T3 UPTAKE (test code = 02767223) 34 % 22-35 N T4 (THYROXINE), TOTAL (test code = 47604949) 6.4 mcg/dL 4.9-10.5 N FREE T4 INDEX (T7) (test cod e = 43735627) 2.2 1.4-3.8 N TSH (test code = 84842723) 1.55 mIU/L 0.40-4.50 N [facility] MET [id number] 21:25:00* Test Item Value Reference Range Interpretation Comme nts GLUCOSE (test code = 79614099) 141 mg/dL 65-99 H Fasting referenc e interval For someone without known diabetes, a glucosevalue >125 mg/dL indicates that they may havediabetes and this should be confirmed with afollow-up test. UREA NITROGEN (BUN) (test code = 06688229) 18 mg/dL 7-25 N CREATININE (test code = 77261030) 0.66 mg/dL 0.70-1.30 L EGFR (test code = 85618874) 109 mL/min/1.73m2 >=60 N BUN/CREATININE RATIO (test code = 90024792) 27 (calc) 6-22 H SODIUM (test code = 19790100) 137 mmol/L 135-146 N POTASSIUM (test code = 54488333) 3.9 mmol/L 3.5-5.3 N CHLORIDE (test code = 64490537) 100 mmol/L 98-110 N CARBON DIOXIDE (test code = 81591973) 28 mmol/L 20-32 N CALCIUM (test code = 48340317) 8.6 mg/dL 8.6-10.3 N [facility] (DIFF/PLT)2023-11-10 21:25:00* Test Item Value Reference Range Interpretation Comme nts WHITE BLOOD CELL COUNT (test code = 98322021) 7.6 Thousand/uL 3.8-10.8 N RED BLOOD CELL COUNT (test code = 28751471) 4.35 Million/uL 4.20-5.80 N HEMOGLOBIN (test code = 47967544) 10.5 g/dL 13.2-17.1 L HEMATOCRIT (test code = 48298063) 34.7 % 38.5-50.0 L MCV (test code = 14963438) 79.8 fL 80.0-100.0 L MCH (test code = 69261357) 24.1 pg 27.0-33.0 L MCHC (test code = 56922757) 30.3 g/dL 32.0-36.0 L RDW (test code = 02641227) 14.4 % 11.0-15.0 N PLATELET COUNT (test code = 71720359) 159 Thousand/uL 140-400 N MPV (test code = 62705004) fL 7.5-12.5 N Due to platelet or RBC variability in size or shapethe result cannot be reported accurately. ABSOLUTE NEUTROPHILS (test code = 82447473) 5046 cells/uL 7437-5336 N ABSOLUTE LYMPHOCYTES (test code = 01162280) 2006 cells/uL 850-3900 N ABSOLUTE MONOCYTES (test code = 99628432) 319 cells/uL 200-950 N ABSOLUTE EOSINOPHILS (test code = 75725063) 198 cells/uL 15-500 N ABSOLUTE BASOPHILS (test code = 73731728) 30 cells/uL 0-200 N NEUTROPHILS (test code = 95806708) 66.4 % N LYMPHOCYTES (test code = 56009362) 26.4 % N MONOCYTES (test code = 87540913) 4.2 % N EOSINOPHILS (test code = 48799378) 2.6 % N BASOPHILS (test code = 32144810) 0.4 % N [facility],COMP W/RFL [id number] 21:25:00* Test Item Value Reference Range Interpretation Comme nts COLOR (test code = 61751157) DARK YELLOW YELLOW N APPEARANCE (test code = 76815897) CLOUDY CLEAR A SPECIFIC GRAVITY (test code = 06877004) 1.021 1.001-1.035 N PH (test code = 13428012) 5.5 5.0-8.0 N GLUCOSE (test code = 69429201) NEGATIVE NEGATIVE N BILIRUBIN (test code = 66851161) NEGATIVE NEGATIVE N KETONES (test code = 54085984) TRACE NEGATIVE A OCCULT BLOOD (test code = 17625328) NEGATIVE NEGATIVE N PROTEIN (test code = 86884301) 1+ NEGATIVE A NITRITE (test code = 96223620) NEGATIVE NEGATIVE N LEUKOCYTE ESTERASE (test code = 60968471) 2+ NEGATIVE A WBC (test code = 64868087) > OR = 60 /HPF 0-5 A RBC (test code = 71336786) NONE SEEN /HPF 0-2 N SQUAMOUS EPITHELIAL CELLS (test code = 99540927) NONE SEEN /HPF <=5 N BACTERIA (test code = 27487376) MANY /HPF NONE SEEN A HYALINE CAST (test code = 34755948) NONE SEEN /LPF NONE SEEN N NOTE (test code = 57631447) This urine was analyzed for the presence of WBC, RBC, bacteria, casts, and other formed elements. Only those elements seen were reported. [facility], UR [id number] 21:25:00* Test Item Value Reference Range Interpretation Comme nts SOURCE: (test code = 52555101) URINE STATUS: (test code = 04588389) FINAL ISOLATE 1: (test code = 38910179) Enterobacter cloacae complex A [facility],[id number] 21:25:00* Test Item Value Reference Range Interpretation Comme nts ISOLATE (test code = 77420714) N Enterobacter [place] acae complex AMOXICILLIN/CLAVULANI C (test code = 31032307) 16 R CEFAZOLIN (test code = 84138557) >=64 R For uncomplicate d UTI caused by E. coli,K. pneumoniae or P. mirabilis: Cefazolin issusceptible if LISETTE <32 mcg/mL and predictssusceptible to the oral agents cefaclor, cefdinir,cefpodoxime, cefprozil, cefuroxime, cephalexinand loracarbef. CEFTAZIDIME (test code = 23585670) <=1 S CEFEPIME (test code = 30930975) <=1 S CEFTRIAXONE (test code = 57321866) <=1 S CIPROFLOXACIN (test code = 70314869) <=0.25 S LEVOFLOXACIN (test code = 41083427) <=0.12 S GENTAMICIN (test code = 35719226) <=1 S IMIPENEM (test code = 96139371) <=0.25 S NITROFURANTOIN (test code = 39649998) 64 I PIPERACILLIN/TAZOBACT AM (test code = 04528688) <=4 S TOBRAMYCIN (test code = 05566035) <=1 S TRIMETHOPRIM/SULFA (test code = 93628773) >=320 R Legend:S = Susce ptible I = IntermediateR = Resistant NS = Not susceptible* = Not tested NR = Not reportedNN = See antimicrobic comments [facility]URE [id number] 21:25:00* Test Item Value Reference Range Interpretation Comme nts REFLEXIVE URINE CULTURE (test code = 82585045) CULTURE I NDICATED - RESULTS TO FOLLOW [facility]ITALURA,[id number] 10:09:00* Test Item Value Reference Range Interpretation Comme nts ISOLATE (test code = 80042648) N Gram negative ba cilli isolated [facility] [id number] 10:09:00* Test Item Value Reference Range Interpretation Comme nts REFLEXIVE URINE CULTURE (test code = 72063206) CULTURE I NDICATED - RESULTS TO FOLLOW [facility]EL [id number] 10:09:00* Test Item Value Reference Range Interpretation Comme nts T3 UPTAKE (test code = 43184906) 34 % 22-35 N T4 (THYROXINE), TOTAL (test code = 76930574) 6.4 mcg/dL 4.9-10.5 N FREE T4 INDEX (T7) (test cod e = 91539485) 2.2 1.4-3.8 N TSH (test code = 93348018) 1.55 mIU/L 0.40-4.50 N [facility] MET [id number] 10:09:00* Test Item Value Reference Range Interpretation Comme nts GLUCOSE (test code = 12922995) 141 mg/dL 65-99 H Fasting referenc e interval For someone without known diabetes, a glucosevalue >125 mg/dL indicates that they may havediabetes and this should be confirmed with afollow-up test. UREA NITROGEN (BUN) (test code = 95813033) 18 mg/dL 7-25 N CREATININE (test code = 97685614) 0.66 mg/dL 0.70-1.30 L EGFR (test code = 31157586) 109 mL/min/1.73m2 >=60 N BUN/CREATININE RATIO (test code = 43740291) 27 (calc) 6-22 H SODIUM (test code = 58919871) 137 mmol/L 135-146 N POTASSIUM (test code = 34166511) 3.9 mmol/L 3.5-5.3 N CHLORIDE (test code = 33088431) 100 mmol/L 98-110 N CARBON DIOXIDE (test code = 48754817) 28 mmol/L 20-32 N CALCIUM (test code = 73959597) 8.6 mg/dL 8.6-10.3 N [facility] (DIFF/PLT)2023-11-10 10:09:00* Test Item Value Reference Range Interpretation Comme nts WHITE BLOOD CELL COUNT (test code = 31279247) 7.6 Thousand/uL 3.8-10.8 N RED BLOOD CELL COUNT (test code = 30867780) 4.35 Million/uL 4.20-5.80 N HEMOGLOBIN (test code = 65314742) 10.5 g/dL 13.2-17.1 L HEMATOCRIT (test code = 82690247) 34.7 % 38.5-50.0 L MCV (test code = 28210673) 79.8 fL 80.0-100.0 L MCH (test code = 25193647) 24.1 pg 27.0-33.0 L MCHC (test code = 88180981) 30.3 g/dL 32.0-36.0 L RDW (test code = 76626132) 14.4 % 11.0-15.0 N PLATELET COUNT (test code = 22473090) 159 Thousand/uL 140-400 N MPV (test code = 89747238) fL 7.5-12.5 N Due to platelet or RBC variability in size or shapethe result cannot be reported accurately. ABSOLUTE NEUTROPHILS (test code = 42321126) 5046 cells/uL 9871-0995 N ABSOLUTE LYMPHOCYTES (test code = 66843862) 2006 cells/uL 850-3900 N ABSOLUTE MONOCYTES (test code = 71856726) 319 cells/uL 200-950 N ABSOLUTE EOSINOPHILS (test code = 05842720) 198 cells/uL 15-500 N ABSOLUTE BASOPHILS (test code = 81291028) 30 cells/uL 0-200 N NEUTROPHILS (test code = 20803738) 66.4 % N LYMPHOCYTES (test code = 11312589) 26.4 % N MONOCYTES (test code = 20447059) 4.2 % N EOSINOPHILS (test code = 98411371) 2.6 % N BASOPHILS (test code = 71712933) 0.4 % N [facility]/RFL [id number] 10:09:00* Test Item Value Reference Range Interpretation Comme nts COLOR (test code = 02861097) DARK YELLOW YELLOW N APPEARANCE (test code = 85089843) CLOUDY CLEAR A SPECIFIC GRAVITY (test code = 76566086) 1.021 1.001-1.035 N PH (test code = 80236951) 5.5 5.0-8.0 N GLUCOSE (test code = 44478610) NEGATIVE NEGATIVE N BILIRUBIN (test code = 55165452) NEGATIVE NEGATIVE N KETONES (test code = 41951543) TRACE NEGATIVE A OCCULT BLOOD (test code = 09250874) NEGATIVE NEGATIVE N PROTEIN (test code = 43523731) 1+ NEGATIVE A NITRITE (test code = 27666252) NEGATIVE NEGATIVE N LEUKOCYTE ESTERASE (test code = 42258778) 2+ NEGATIVE A WBC (test code = 18709304) > OR = 60 /HPF 0-5 A RBC (test code = 33311181) NONE SEEN /HPF 0-2 N SQUAMOUS EPITHELIAL CELLS (test code = 72338513) NONE SEEN /HPF <=5 N BACTERIA (test code = 19471343) MANY /HPF NONE SEEN A HYALINE CAST (test code = 55064289) NONE SEEN /LPF NONE SEEN N NOTE (test code = 79158885) This urine was analyzed for the presence of WBC, RBC, bacteria, casts, and other formed elements. Only those elements seen were reported. [facility], UR [id number] 10:09:00* Test Item Value Reference Range Interpretation Comme nts SOURCE: (test code = 83819716) URINE STATUS: (test code = 69528769) PRELIMINARY ISOLATE 1: (test code = 72937521) Gram negative bacilli isolated A [facility] META [id number] 21:49:00* Test Item Value Reference Range Interpretation Comme nts GLUCOSE (test code = 82566280) 117 mg/dL 65-99 H Fasting referenc e interval For someone without known diabetes, a glucose valuebetween 100 and 125 mg/dL is consistent withprediabetes and should be confirmed with afollow-up test. UREA NITROGEN (BUN) (test code = 44904303) 18 mg/dL 7-25 N CREATININE (test code = 69608339) 0.61 mg/dL 0.70-1.30 L EGFR (test code = 77541479) 111 mL/min/1.73m2 >=60 N BUN/CREATININE RATIO (test code = 25843021) 30 (calc) 6-22 H SODIUM (test code = 86332046) 137 mmol/L 135-146 N POTASSIUM (test code = 63736780) 4.4 mmol/L 3.5-5.3 N CHLORIDE (test code = 80426839) 102 mmol/L 98-110 N CARBON DIOXIDE (test code = 77521289) 26 mmol/L 20-32 N CALCIUM (test code = 28988265) 8.7 mg/dL 8.6-10.3 N PROTEIN, TOTAL (test code = 84242621) 6.5 g/dL 6.1-8.1 N ALBUMIN (test code = 19393437) 3.7 g/dL 3.6-5.1 N GLOBULIN (test code = 25882442) 2.8 g/dL (calc) 1.9-3.7 N ALBUMIN/GLOBULIN RATIO (test code = 04919218) 1.3 (calc) 1.0-2.5 N BILIRUBIN, TOTAL (test code = 65249856) 0.5 mg/dL 0.2-1.2 N ALKALINE PHOSPHATASE (test code = 91108101) 112 U/L 35-144 N AST (test code = 37330761) 17 U/L 10-35 N ALT (test code = 34208911) 17 U/L 9-46 N [facility] WITH [id number] 21:49:00* Test Item Value Reference Range Interpretation Comme nts INR (test code = 18399746) 1.1 N Reference Range 0.9-1.1Moderate-intensity Warfarin Therapy 2.0-3.0Higher-intensity Warfarin Therapy 3.0-4.0 PT (test code = 40614836) 11.4 sec 9.0-11.5 N For additional information, please refer tohttp://education.[employer]/faq/IEH701 (This link is being provided for informational/educational purposes only.) [facility] (DIFF/PLT)2023-11-09 21:49:00* Test Item Value Reference Range Interpretation Comme nts WHITE BLOOD CELL COUNT (test code = 17040859) 8.0 Thousand/uL 3.8-10.8 N RED BLOOD CELL COUNT (test code = 90525065) 4.25 Million/uL 4.20-5.80 N HEMOGLOBIN (test code = 73784975) 10.1 g/dL 13.2-17.1 L HEMATOCRIT (test code = 97668412) 33.9 % 38.5-50.0 L MCV (test code = 69074862) 79.8 fL 80.0-100.0 L MCH (test code = 37306158) 23.8 pg 27.0-33.0 L MCHC (test code = 84121681) 29.8 g/dL 32.0-36.0 L RDW (test code = 61010920) 14.5 % 11.0-15.0 N PLATELET COUNT (test code = 18128150) 149 Thousand/uL 140-400 N MPV (test code = 57457604) fL 7.5-12.5 N Due to platelet or RBC variability in size or shapethe result cannot be reported accurately. ABSOLUTE NEUTROPHILS (test code = 20085950) 5928 cells/uL 1159-8610 N ABSOLUTE LYMPHOCYTES (test code = 50397343) 1560 cells/uL 850-3900 N ABSOLUTE MONOCYTES (test code = 84954500) 336 cells/uL 200-950 N ABSOLUTE EOSINOPHILS (test code = 15581526) 160 cells/uL 15-500 N ABSOLUTE BASOPHILS (test code = 73441565) 16 cells/uL 0-200 N NEUTROPHILS (test code = 91118107) 74.1 % N LYMPHOCYTES (test code = 08934194) 19.5 % N MONOCYTES (test code = 76845183) 4.2 % N EOSINOPHILS (test code = 99519065) 2.0 % N BASOPHILS (test code = 09732676) 0.2 % N [facility] [id number] 20:16:00* Test Item Value Reference Range Interpretation Comme nts HEMOGLOBIN A1c (test code = 12280409) 10.3 % of total Hgb <5.7 H For someone without known diabetes, a hemoglobin [id number] of 6.5% or greater indicates that they [...] of diabetes for children. HbA1c performed on [employer] platform.Effective 09/07/23 a change in test platforms may have shifted HbA1c results compared to historical results. [facility]
--- NOTE | 2024-06-13 09:09 | P.PN ---
Subjective Date of Service: 06/13/24 Primary Care Provider: Noelle Subjective: No new changes (patient able to speak a few words. Thanked me) Review of Systems is unable to be obtained General: Weakness Physical Examination - Vital Signs Temperature: 96.7 F Blood Pressure: 137/63 Pulse: 89 Respirations: 20 Pulse Ox (%): 94 - Physical Exam General: Oriented x1 HEENT: Atraumatic, PERRLA, EOMI Neck: Supple, JVD not distended Respiratory: Clear to auscultation bilaterally, Normal air movement Cardiovascular: Regular rate/rhythm, Normal S1 S2 Gastrointestinal: Normal bowel sounds, No tenderness Musculoskeletal: No tenderness Integumentary: No rashes Neurological: Normal speech, Normal tone, Normal affect Lymphatics: No axilla or inguinal lymphadenopathy Assessment And Plan - Current Problems (Diagnosis) (1) End of life care Current Visit: No Status: Acute Plan: plans for hospice. Most likely to in a few days 06/12 spent 30min answering the patients questions. They are moving towards acceptance. Do not think they want to take the patient home. Possible hospice house or a NH with hospice care. production utility worker should be back tomorrow to help the the family with this (2) Upper GI bleed Current Visit: Yes Status: Acute Plan: Patient refused GI intervention (3) Complicated UTI (urinary tract infection) Current Visit: No Status: Acute Plan: hold antibiotics in hospice Discharge Plan: Home - Code Status/Comfort Care Code Status Assessed: No Physician Review: Patient Assessed, Agree with Above Assessment and Plan Critical Care: No Time Spent Managing PTS Care (In Minutes): 30
--- NOTE | 2024-06-14 09:29 | P.PN ---
Subjective Date of Service: 06/14/24 Primary Care Provider: Noelle Subjective: Worsening (non verbal at this point) Review of Systems is unable to be obtained Physical Examination - Vital Signs Temperature: 98.9 F Blood Pressure: 137/71 Pulse: 91 Respirations: 16 Pulse Ox (%): 100 - Physical Exam General: Unresponsive HEENT: Atraumatic, PERRLA, EOMI Neck: Supple, JVD not distended Respiratory: Clear to auscultation bilaterally, Normal air movement Cardiovascular: Regular rate/rhythm, Normal S1 S2 Gastrointestinal: Normal bowel sounds, No tenderness Musculoskeletal: No tenderness Integumentary: No rashes Neurological: Normal speech, Normal tone, Normal affect Lymphatics: No axilla or inguinal lymphadenopathy Assessment And Plan - Current Problems (Diagnosis) (1) End of life care Current Visit: No Status: Acute Plan: plans for hospice. Most likely to in a few days 06/14 Family wishes to have the patient in a nursing facility with hospice. This is understandable. Will await social and human services assistant and hospice worker to arrange this. (2) Upper GI bleed Current Visit: Yes Status: Acute Plan: Patient refused GI intervention (3) Complicated UTI (urinary tract infection) Current Visit: No Status: Acute Plan: hold antibiotics in hospice Discharge Plan: Residential Plan to discharge in: 24 Hours - Code Status/Comfort Care Code Status Assessed: No Physician Review: Patient Assessed, Agree with Above Assessment and Plan Critical Care: No Time Spent Managing PTS Care (In Minutes): 20
[2024-06-14] MEDS: HYDROMORPHONE HCL 1 MG/ML INJ IV PRN ×2 (13:17→22:13)
[2024-06-14] MEDS ORDERED: SCOPOLAMINE HYDROBROMIDE PATCH TD PRN (13:55)
[2024-06-14] MEDS ORDERED: ONDANSETRON 4 MG/2 ML VIAL IV PRN (13:56)
[2024-06-14] MEDS: LORazepam 2 MG/ML VIAL IV PRN (16:00)
[2024-06-14] MEDS: FENTANYL 25 MCG/PATCH TD SCH (22:11)
[2024-06-15 09:23] VITALS: O2SAT 95
[2024-06-17] MEDS ORDERED: FENTANYL 25 MCG/PATCH TD SCH (09:00)
[2024-06-19 20:10] VITALS: BP 115/57; TEMP 97.3
== END 2024-06-17 15:01 | disposition hospice, inpatient (51) | DRG 812 ==
LOC: 3RD-ICU 22:44 → 2ND 06-11 01:43
PROVIDERS: ADMIT Internal Medicine Hematology & Oncology; ATTEND Internal Medicine Hematology & Oncology
PROC: 30233N1 Transfusion of Nonautologous Red Blood Cells into Peripheral Vein, Percutaneous Approach (ICD-10-PCS; principal; 2024-06-10)
DX: D50.0 Iron deficiency anemia secondary to blood loss (chronic) (principal); N39.0 Urinary tract infection, site not specified; K92.2 Gastrointestinal hemorrhage, unspecified; E11.42 Type 2 diabetes mellitus with diabetic polyneuropathy; Z66 Do not resuscitate; Z51.5 Encounter for palliative care; Z79.82 Long term (current) use of aspirin; Z79.84 Long term (current) use of oral hypoglycemic drugs; Z79.899 Other long term (current) drug therapy; Z89.611 Acquired absence of right leg above knee
CPT/HCPCS: J1170

== ENCOUNTER 2024-07-29 10:21 | Inpatient (IN) | payer OTHER ==
--- OUTSIDE RECORDS SUMMARY | 2024-07-29 10:26 | XMS REPORT | Continuity of Care Document ---
Author Name Unknown Address [address] [facility] [address] [place] [address] [facility] thconnect Address [address] [facility] [address] [place] [address] Care Team Providers Care Finance Administrator Name Role Phone BRANDIN SIERRA Primary Care Physician Unavailab NEDRA Pardo Attending Clinician UnavailADA Blackmon Attending Clinician Unavail able ADA ROBBINS Attending Clinician Unavail able Tania Zimmerman Yijia Attending Clinician Unavailab May Carrasquillo Anavella Attending Cli carlo Unavailable JEANNIE MILLER Attending Clinician Unavaila JULISA Maguire Attending Clinician Unavailabl e Doctor Unassigned, [place] Attending Clinician Veronica Degroot PTA Attending Clinician Unavail able Julisa Duran MD Attending Clinician [phone] Logan Lance MD Attending Clinician + [phone] Niyah Mckeon PT Attending Clinician Un available LOGAN LANCE Attending Clinician KATE Sandoval Attending Clinician Unavailable Castillo PT, Mercy G Attending Clinician Unavailab evelina BRUNNER, ERICKA Admitting Clinician Unavailable Tania Zimmerman Yijia Admitting Clinician Unavailab Marianne Carrasquillo, Marianne Admitting Clinician U navailable Payers Payer Name Policy Type Policy Number Effective Date Expirati on Date Source MEDICARE PART A \T\ B [id number] 2017 00:00:00 MCR MCR [id number] Problems Condition Name Condition Details Condition Category Status Onset Date Resolution Date Last Treatment Date Treating Clinician Comments Source Chronic edema Chronic edema Disease Active 2019-10 00:00: 00 [facility] Hx of AKA (above knee amputation ), 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 ), right Disease Active 2019-10 00:00: 00 [facility] Balanitis Balanitis Problem Comm on [facility] [id number] 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 Problem [facility] [id number] Acquired phimosis of penis Problem [facility] Leukoplaki a of penis BXO (balanitis xerotica obliterans ) Problem [facility] Allergies, Adverse Reactions, Alerts Allergy Name Allergy Type Status Severity Reaction(s) Onset Date Inactive Date Treating Clinician Comments Source NO KNOWN ALLERGIE S Drug Class Active [facility] Social History Social Habit Start Date Stop Date Quantity Comments Source History of Tobacco Use [facility] Sex Assigned At [facility] Alcohol intake 2020-06-25 00:00:00 2020-06-25 00:00:00 Ex-drinker (finding) [facility] Tobacco use and exposure 2019-11-25 00:00:00 2019-11-25 00:00:00 Smokeless tobacco non-user [facility] Smoking Status Start Date Stop Date Source Unknown if ever smoked Unive [facility] Former Smoker 2024-05-11 00:00:00 2024-05-11 00:00:00 [facility] Never smoked tobacco [facility] Medications Ordered Medication Name Filled Medication Name Start Date Stop Date Current Medication? Ordering Clinician Indication Dosage Frequency Signature (SIG) Comments Components Source GLIPIZIDE 10 mg tablet 2020-10 0- 00:00: 00 Yes [id number] TAKE ONE TABLET BY MOUTH DAILY [facility] GLIPIZIDE 10 mg tablet 2020-10 0-19 00:00: 00 Yes [id number] TAKE ONE TABLET BY MOUTH DAILY [facility] PIOGLITAZON E 30 mg tablet 07-15 00:00: 00 Yes TAKE ONE TABLET BY MOUTH DAILY [facility] TRIAMTERENE -HYDROCHLOR OTHIAZIDE 37.5-25 mg per capsule 9- 00:00: 00 Yes [id number] TAKE ONE CAPSULE BY MOUTH EVERY MORNING [facility] BUMETANIDE 1 mg tablet 07-15 00:00: 00 Yes [id number] TAKE ONE TABLET BY MOUTH DAILY [facility] metFORMIN 500 mg tablet 06-25 00:00: 00 Yes [id number] TAKE ONE TABLET BY MOUTH TWICE A DAY WITH MEALS [facility] ATORVASTATI N 40 mg tablet 06-13 00:00: 00 Yes TAKE ONE TABLET BY MOUTH AT BEDTIME [facility] GLIPIZIDE 10 mg tablet 816 00:00: 00 08-13 00:00 :00 No [id number] TAKE ONE TABLET BY MOUTH DAILY [facility] BUMETANIDE 1 mg tablet 05-21 00:00: 00 Yes [id number] TAKE ONE TABLET BY MOUTH DAILY [facility] TRIAMTERENE -HYDROCHLOR OTHIAZIDE 37.5-25 mg per capsule 05-21 00:00: 00 Yes [id number] TAKE ONE CAPSULE BY MOUTH EVERY MORNING [facility] KCL 10 mEq tablet 05-15 00:00: 00 Yes [id number] TAKE ONE TABLET BY MOUTH DAILY [facility] metFORMIN 500 mg tablet 04-15 00:00: 00 06-25 00:00 :00 No [id number] TAKE ONE TABLET BY MOUTH TWICE A DAY WITH MEALS [facility] PIOGLITAZON E 30 mg tablet 616 00:00: 00 Yes TAKE ONE TABLET BY MOUTH DAILY [facility] exenatide microsphere s (BYDUREON) 2 mg/0.65 mL injection 21 00:00: 00 Yes [id number] 2mg inject 0.65 mL under the skin weekly. [facility] traMADoL 50 mg tablet 01-11 00:00: 00 Yes [id number] 50mg Take 1 tablet by mouth every 6 (six) hours as needed for Pain (scale 4-6). Indication s: acute pain [facility] exenatide microsphere s 2 mg injection 01-11 00:00: 00 Yes [id number] 2mg inject 2 mg under the skin every 7 (seven) days. [facility] traMADol 50 mg tablet 12-21 00:00: 00 Yes [id number] 50mg Take 1 tablet by mouth every 6 (six) hours as needed (pain). [facility] exenatide microsphere s 2 mg injection 12-21 00:00: 00 Yes [id number] 2mg inject 2 mg under the skin every 7 (seven) days. [facility] metFORMIN 500 mg tablet 11-25 20:46: 55 Yes 500mg Take 500 mg by mouth 2 (two) times daily with meals. [facility] atorvastati n 40 mg tablet 11-25 20:46: 55 Yes 40mg Take 40 mg by mouth at bedtime. [facility] pioglitazon e 30 mg tablet 11-25 20:46: 55 Yes 30mg Take 30 mg by mouth daily. [facility] glipiZIDE 10 mg tablet 11-25 20:46: 55 Yes 10mg Take 10 mg by mouth daily. [facility] amoxicillin -clavulanat e (AUGMENTIN) 875-125 mg per tablet 11-25 00:00: 00 12-21 00:00 :00 No [id number] 1{tbl} Take 1 tablet by mouth 2 (two) times daily. [facility] sulfamethox azole-trime thoprim 800-160 mg per tablet 11-25 00:00: 00 12-21 00:00 :00 No [id number] 1{tbl} Take 1 tablet by mouth 2 (two) times daily. [facility] traMADol 50 mg tablet 11-25 00:00: 00 12-21 00:00 :00 No [id number] 50mg Take 1 tablet by mouth every 6 (six) hours as needed (pain). [facility] Furosemide 40 MG Furosemide 40 MG No [...] MG No known medications No Un senthil [facility] Vital Signs Vital Name Observation Time Observation Value Comments S ource height 2024-02-17 13:30:00 72 [in_i] Commo n [facility] weight 2024-02-17 13:30:00 340.0 [lb_av] Co mmon [facility] temperature 2024-02-17 13:30:00 98.5 [degF] Com mon [facility] bmi 2024-02-17 13:30:00 46.11 kg/m2 Comm on [facility] oximetry 2024-02-17 13:30:00 95 % Commo n [facility] respiratory rate 2024-02-17 13:30:00 16 /min Common [facility] blood pressure systolic 2024-02-17 13:30:00 173 mm[Hg] Common [facility] blood pressure diastolic 2024-02-17 13:30:00 83 mm[Hg] [facility] Spiri t [facility] Systolic blood pressure 2019-12-21 17:49:00 110 mm[Hg] [facility] Diastolic blood pressure 2019-12-21 17:49:00 41 mm[Hg] [place] [facility] Heart rate 2019-12-21 17:49:00 79 /min Unive [facility] Body temperature 2019-12-21 17:49:00 36.78 Yesenia [facility] Respiratory rate 2019-12-21 17:49:00 18 /min [facility] Procedures Procedure Date / Time Performed Performing Clinician Source REFERRAL- REQUEST/RESPONSE 2023-04-20 05:01:00 Doctor Unassigned, [place] [facility] ASSIGNMENT OF BENEFITS 2022-03-26 12:52:53 Docto r Unassigned, [place] [facility] REFERRAL- REQUEST/RESPONSE 2022-03-12 05:01:00 Doctor Unassigned, [place] [facility] PATIENT QUESTIONNAIRE 2019-11-22 06:01:00 Doctor Unassigned, [place] [facility] REFERRAL- REQUEST/RESPONSE 2019-11-11 06:01:00 Doctor Unassigned, [place] [facility] Encounters Start Date/Time End Date/Time Encounter Type Admission Type Attending Clinicians Care Facility Care Department Encounter ID Source 2024-04-13 11:58:00 Outpatient [facility] [id number] [facility] 2024-02-17 12:35:00 Outpatient [facility] [id number] [facility] 2021-08-23 14:59:58 Emergency [facility] [id number] [facility] 2019-11-28 08:29:26 Outpatient [facility] [id number] [facility] 2024-07-20 22:26:00 2024-07-26 17:17:00 Inpatient NEDRA ANN [facility] MED [id number] [facility] 2024-05-11 00:00:00 2024-05-11 00:00:00 [id number] 2024-04-08 11:00:00 2024-04-08 11:00:00 Outpatient ADA AGUIRRE HOWARD [facility] [id number] [facility] 2024-04-06 00:00:00 2024-04-06 00:00:00 (TEL) STLMLC [facility] [id number] [facility] 2024-03-07 00:00:00 2024-03-07 00:00:00 ([place]) Nurse Visit STLMLC [facility] [id number] [facility] 2024-02-29 00:00:00 2024-02-29 00:00:00 (TEL) STLMLC STLMLC [id number] [facility] 2024-02-23 00:00:00 2024-02-23 00:00:00 ([place]) Nurse Visit STLMLC STL[facility]C [id number] [facility] 2024-02-17 00:00:00 2024-02-17 00:00:00 OFFICE VISIT ESTAB PT LEVEL 3 STLMLC STLMLC [id number] [facility] 2024-01-13 18:01:00 2024-01-30 11:57:00 Inpatient 3 Tania Zimmerman ENCPL SCN [id number] [facility] 2023-11-07 22:28:00 2023-11-23 15:20:[address] [facility] EULALIO [id number] [facility] 2023-06-05 08:45:00 2023-06-05 08:45:00 Outpatient JULISA AREVALO [facility] [id number] [facility] 2023-04-20 00:00:00 2023-04-20 00:00:00 Orders Only Doctor Unassigned, [place] [facility] 1.2.840.114 350.1.13.10 4.2.7.2.686 [id number] [facility] 2023-04-14 00:00:00 2023-04-14 00:00:00 Telephone Veronica Truong [facility] 1.2.840.114 350.1.13.10 4.2.7.2.686 [id number] 179 [id number] [facility] 2022-08-21 08:00:00 2022-08-21 09:19:07 Outpatient R JULISA DURAN [facility] [id number] [facility] 2022-08-21 08:00:00 2022-08-21 09:19:07 Ancillary Visit Veronica Truong Craig L [facility] 1.2.840.114 350.1.13.10 4.2.7.2.686 [id number] [facility] 2022-08-14 08:00:00 2022-08-14 09:36:02 Ancillary Visit Veronica Truong Craig L [facility] 1.2.840.114 350.1.13.10 4.2.7.2.686 [id number] [facility] 2022-08-07 08:00:00 2022-08-07 09:00:00 Ancillary Visit Veronica Truong Craig L [facility] 1.2.840.114 350.1.13.10 4.2.7.2.686 [id number] [facility] 2022-07-17 08:00:00 2022-07-17 10:33:07 Ancillary Visit Veronica Truong Craig L [facility] 1.2.840.114 350.1.13.10 4.2.7.2.686 [id number] [facility] 2022-07-11 08:00:00 2022-07-11 09:09:53 Ancillary Visit Veronica Truong Craig L [facility] 1.2.840.114 350.1.13.10 4.2.7.2.686 [id number] [facility] 2022-07-09 08:00:00 2022-07-09 09:22:42 Ancillary Visit Veronica Truong Craig L [facility] 1.2.840.114 350.1.13.10 4.2.7.2.686 [id number] [facility] 2022-07-03 08:00:00 2022-07-03 09:28:51 Ancillary Visit Veronica Truong Craig L [facility] 1.2.840.114 350.1.13.10 4.2.7.2.686 [id number] [facility] 2022-07-01 08:00:00 2022-07-01 09:42:36 Outpatient R JULISA DURAN [facility] [id number] [facility] 2022-07-01 08:00:00 2022-07-01 09:42:36 Ancillary Visit Veronica Truong Craig L [facility] 1.2.840.114 350.1.13.10 4.2.7.2.686 [id number] [facility] 2022-06-25 08:00:00 2022-06-25 10:05:28 Ancillary Visit Veronica Truong Craig L [facility] 1.2.840.114 350.1.13.10 4.2.7.2.686 [id number] [facility] 2022-06-20 08:00:00 2022-06-20 09:40:30 Ancillary Visit Veronica Truong Craig L [facility] 1.2.840.114 350.1.13.10 4.2.7.2.686 [id number] [facility] 2022-06-18 08:00:00 2022-06-18 09:36:15 Ancillary Visit Veronica Truong DuranJulisa bundy [facility] 1.2.840.114 350.1.13.10 4.2.7.2.686 [id number] [facility] 2022-06-13 08:00:00 2022-06-13 08:45:00 Ancillary Visit Veronica Truong Aquiles DuranKhadijahig Manuel [facility] 1.2.840.114 350.1.13.10 4.2.7.2.686 [id number] [facility] 2022-06-10 08:45:00 2022-06-10 09:30:00 Ancillary Visit Alexi Julisa Gomez [facility] 1.2.840.114 350.1.13.10 4.2.7.2.686 [id number] [facility] 2022-06-06 08:00:00 2022-06-06 10:23:06 Ancillary Visit Veronica Truong Craig L [facility] 1.2.840.114 350.1.13.10 4.2.7.2.686 [id number] [facility] 2022-06-04 08:00:00 2022-06-04 09:29:06 Ancillary Visit Veronica Truong Craig L [facility] 1.2.840.114 350.1.13.10 4.2.7.2.686 [id number] [facility] 2022-05-30 08:00:00 2022-05-30 10:18:46 Ancillary Visit Veronica Truong Julisa Guzmán [facility] 1.2.840.114 350.1.13.10 4.2.7.2.686 [id number] [facility] 2022-05-28 08:00:00 2022-05-28 10:30:25 Outpatient R JULISA DURAN [facility] [id number] [facility] 2022-05-28 08:00:00 2022-05-28 08:45:00 Ancillary Visit Alexi Julisa Gomez [facility] 1.2.840.114 350.1.13.10 4.2.7.2.686 [id number] [facility] 2022-05-23 08:00:00 2022-05-23 09:06:40 Ancillary Visit Veronica Truong Craig L [facility] 1.2.840.114 350.1.13.10 4.2.7.2.686 [id number] [facility] 2022-05-09 09:30:00 2022-05-09 10:33:51 Ancillary Visit Veronica Truong Craig L [facility] 1.2.840.114 350.1.13.10 4.2.7.2.686 [id number] [facility] 2022-05-07 10:15:00 2022-05-07 11:02:32 Ancillary Visit Veronica Truong Craig L [facility] 1.2.840.114 350.1.13.10 4.2.7.2.686 [id number] [facility] 2022-05-05 00:00:00 2022-05-05 00:00:00 Logan Bergman [facility] 1.2.840.114 350.1.13.10 4.2.7.2.686 [id number] [facility] 2022-05-05 00:00:00 2022-05-05 00:00:00 Logan Bergman [facility] 1.2.840.114 350.1.13.10 4.2.7.2.686 [id number] [facility] 2022-04-30 08:45:00 2022-04-30 08:45:00 Outpatient R JULISA DURAN [facility] [id number] [facility] 2022-04-30 00:00:00 2022-04-30 00:00:00 Case Management Veronica Truong [facility] 1.2.840.114 350.1.13.10 4.2.7.2.686 [id number] [facility] 2022-04-24 14:30:00 2022-04-24 15:42:45 Ancillary Visit Veronica Truong Craig L [facility] 1.2.840.114 350.1.13.10 4.2.7.2.686 [id number] [facility] 2022-04-17 08:00:00 2022-04-17 09:00:00 Ancillary Visit Veronica Truong Craig L [facility] 1.2.840.114 350.1.13.10 4.2.7.2.686 [id number] [facility] 2022-04-11 08:00:00 2022-04-11 09:00:00 Ancillary Visit Veronica Truong Craig L [facility] 1.2.840.114 350.1.13.10 4.2.7.2.686 [id number] [facility] 2022-04-09 08:00:00 2022-04-09 09:00:00 Ancillary Visit [facility] 1.2840.114 350.1.13.10 4.2.7.2.686 [id number] [facility] 2022-04-04 08:00:00 2022-04-04 09:00:00 Ancillary Visit Alexi Julisa Gomez [facility] 1.2840.114 350.1.13.10 4.2.7.2.686 [id number] [facility] 2022-04-01 08:00:00 2022-04-01 09:00:00 Ancillary Visit Alexi Julisa Gomez [facility] 1.2840.114 350.1.13.10 4.2.7.2.686 [id number] [facility] 2022-03-26 08:00:00 2022-03-26 10:37:03 Outpatient R JULISA DURAN [facility] [id number] [facility] 2022-03-26 08:00:00 2022-03-26 10:37:03 Ancillary Visit Niyah Mckeon Craig L [facility] 1.2840.114 350.1.13.10 4.2.7.2.686 [id number] [facility] 2022-03-26 00:00:00 2022-03-26 00:00:00 Orders Only Doctor Unassigned, [place] [facility] 1.2840.114 350.1.13.10 4.2.7.2.686 [id number] [facility] 2022-03-12 00:00:00 2022-03-12 00:00:00 Orders Only Doctor Unassigned, [place] [facility] 1.2.840.114 350.1.13.10 4.2.7.2.686 [id number] [facility] 2022-02-10 00:00:00 2022-02-10 00:00:00 Refill ChaojudahLogan dean yoselin [facility] 1.2.840.114 350.1.13.10 4.2.7.2.686 [id number] [facility] 2021-11-29 00:00:00 2021-11-29 00:00:00 Refjoan ChaojudahLogan dean [facility] 1.2.840.114 350.1.13.10 4.2.7.2.686 [id number] [facility] 2021-09-12 00:00:00 2021-09-12 00:00:00 Vita Logan Lance [facility] 1.2.840.114 350.1.13.10 4.2.7.2.686 [id number] [facility] 2021-08-19 00:00:00 2021-08-19 00:00:00 Vita [facility]Logan [facility] 1.2.840.114 350.1.13.10 4.2.7.2.686 [id number] [facility] 2021-08-13 00:00:00 2021-08-13 00:00:00 Vita Chao[facility]ahLogan dean [facility] 1.2.840.114 350.1.13.10 4.2.7.2.686 [id number] [facility] 2021-07-13 00:00:00 2021-07-13 00:00:00 [facility] 1.2.840.114 350.1.13.10 4.2.7.2.686 [id number] [facility] 2021-06-24 00:00:00 2021-06-24 00:00:00 Logan Bergman [facility] Building 1.2.840.114 350.1.13.10 4.2.7.2.686 [id number] [facility] 2020-09-05 10:15:00 2020-09-05 10:15:00 Outpatient LOGAN HESTER [facility] [id number] [facility] 2020-06-25 11:40:00 2020-06-25 11:40:00 Outpatient KATE GOMEZ [facility] [id number] [facility] 2020-06-06 15:45:00 2020-06-06 15:45:00 Outpatient LOGAN HESTER [facility] [id number] [facility] 2020-05-09 16:15:00 2020-05-09 16:15:00 Outpatient LOGAN HESTER [facility] [id number] [facility] 2020-03-20 09:15:00 2020-03-20 09:15:00 Outpatient LOGAN HESTER [facility] [id number] [facility] 2020-01-25 11:00:00 2020-01-25 11:00:00 Outpatient JULISA AREVALO [facility] [id number] [facility] 2019-12-29 09:20:00 2019-12-29 09:20:00 Outpatient JULISA AREVALO [facility] [id number] [facility] 2019-12-21 11:42:25 2019-12-21 11:57:25 Office Visit Logan Lance [facility] Office Building One 1.2.840.114 350.1.13.10 4.2.7.2.686 [id number] [facility] 2019-12-21 11:30:00 2019-12-21 11:30:00 Outpatient R LOGAN LANCE [facility] [id number] [facility] 2019-12-20 09:00:00 2019-12-20 09:00:00 Outpatient R [facility] [id number] [facility] 2019-12-16 10:07:00 2019-12-16 11:07:00 Ancillary Visit Veronica Truong Craig L [facility] Building 1.2.840.114 350.1.13.10 4.2.7.2.686 [id number] [facility] 2019-12-14 09:52:14 2019-12-14 10:52:14 Ancillary Visit Veronica Truong Craig L [facility] Building 1.2.840.114 350.1.13.10 4.2.7.2.686 [id number] [facility] 2019-12-09 08:52:58 2019-12-09 10:16:26 Ancillary Visit Veronica Truong Craig L [facility] Building 1.2.840.114 350.1.13.10 4.2.7.2.686 [id number] [facility] 2019-12-07 08:58:57 2019-12-07 09:58:57 Ancillary Visit Veronica Truong Craig L [facility] Building 1.2.840.114 350.1.13.10 4.2.7.2.686 [id number] [facility] 2019-12-02 08:47:35 2019-12-02 09:47:35 Ancillary Visit Alexi Julisa Gomez [facility] Building 1.2.840.114 350.1.13.10 4.2.7.2.686 [id number] [facility] 2019-11-18 09:11:00 2019-11-30 12:53:31 Ancillary Visit Stacy Castilloasher Julisa Khan [facility] Building 1.2.840.114 350.1.13.10 4.2.7.2.686 [id number] [facility] 2019-11-30 08:42:50 2019-11-30 09:42:50 Ancillary Visit Veronica Truong Craig L [facility] Building 1.2.840.114 350.1.13.10 4.2.7.2.686 [id number] [facility] 2019-11-24 08:48:05 2019-11-24 15:06:52 Ancillary Visit Veronica Truong Craig L [facility] Building 1.2.840.114 350.1.13.10 4.2.7.2.686 [id number] [facility] 2019-11-22 08:37:05 2019-11-22 11:36:52 Ancillary Visit Veronica Truong Craig L [facility] Building 1.2.840.114 350.1.13.10 4.2.7.2.686 [id number] [facility] 2019-11-22 00:00:00 2019-11-22 00:00:00 Orders Only Doctor Unassigned, [place] [facility] 1.2.840.114 350.1.13.10 4.2.7.2.686 [id number] [facility] 2019-11-11 00:00:00 2019-11-11 00:00:00 Orders Only Doctor Unassigned, [place] [facility] 1.2.840.114 350.1.13.10 4.2.7.2.686 [id number] [facility] 2019-10-30 03:07:00 2019-10-30 15:15:00 Inpatient E [facility] [address] [facility] Results Test Description Test Time Test Comments Results Result Co mments Source [facility] (DIFF/PLT)2024-01-29 11:38:00* Test Item Value Reference Range Interpretation Comme nts WHITE BLOOD CELL COUNT (test code = 24666252) 5.8 Thousand/uL 3.8-10.8 N RED BLOOD CELL COUNT (test code = 51034512) 4.66 Million/uL 4.20-5.80 N HEMOGLOBIN (test code = 62978324) 11.5 g/dL 13.2-17.1 L HEMATOCRIT (test code = 87206247) 38.1 % 38.5-50.0 L MCV (test code = 34649877) 81.8 fL 80.0-100.0 N MCH (test code = 67570174) 24.7 pg 27.0-33.0 L MCHC (test code = 32542756) 30.2 g/dL 32.0-36.0 L RDW (test code = 05215653) 15.4 % 11.0-15.0 H PLATELET COUNT (test code = 03102436) 141 Thousand/uL 140-400 N MPV (test code = 25782858) fL 7.5-12.5 N Due to platelet or RBC variability in size or shapethe result cannot be reported accurately. ABSOLUTE NEUTROPHILS (test code = 05030539) 3695 cells/uL 3821-7665 N ABSOLUTE LYMPHOCYTES (test code = 34972182) 1630 cells/uL 850-3900 N ABSOLUTE MONOCYTES (test code = 23175004) 220 cells/uL 200-950 N ABSOLUTE EOSINOPHILS (test code = 71055521) 226 cells/uL 15-500 N ABSOLUTE BASOPHILS (test code = 71760179) 29 cells/uL 0-200 N NEUTROPHILS (test code = 66827337) 63.7 % N LYMPHOCYTES (test code = 15385951) 28.1 % N MONOCYTES (test code = 33267969) 3.8 % N EOSINOPHILS (test code = 10872996) 3.9 % N BASOPHILS (test code = 41556023) 0.5 % N [facility] [id number] 13:55:00* Test Item Value Reference Range Interpretation Comme [facility] GLUCOSE (test code = 41267978) 147 mg/dL 65-99 H Fasting referenc e interval For someone without known diabetes, a glucosevalue >125 mg/dL indicates that they may havediabetes and this should be confirmed with afollow-up test. UREA NITROGEN (BUN) (test code = 82328287) 12 mg/dL 7-25 N CREATININE (test code = 86781527) 0.46 mg/dL 0.70-1.30 L EGFR (test code = 26746359) 121 mL/min/1.73m2 >=60 N BUN/CREATININE RATIO (test code = 96381689) 26 (calc) 6-22 H SODIUM (test code = 03481542) 136 mmol/L 135-146 N POTASSIUM (test code = 13947106) 3.9 mmol/L 3.5-5.3 N CHLORIDE (test code = 09651748) 99 mmol/L 98-110 N CARBON DIOXIDE (test code = 79000762) 28 mmol/L 20-32 N CALCIUM (test code = 92975697) 8.9 mg/dL 8.6-10.3 N [facility] (DIFF/PLT)2024-01-19 13:55:00* Test Item Value Reference Range Interpretation Comme nts WHITE BLOOD CELL COUNT (test code = 25987552) 6.8 Thousand/uL 3.8-10.8 N RED BLOOD CELL COUNT (test code = 80537652) 4.73 Million/uL 4.20-5.80 N HEMOGLOBIN (test code = 08024793) 11.7 g/dL 13.2-17.1 L HEMATOCRIT (test code = 56404390) 38.0 % 38.5-50.0 L MCV (test code = 80412380) 80.3 fL 80.0-100.0 N MCH (test code = 47966602) 24.7 pg 27.0-33.0 L MCHC (test code = 79645309) 30.8 g/dL 32.0-36.0 L RDW (test code = 37161152) 15.3 % 11.0-15.0 H PLATELET COUNT (test code = 15189247) 141 Thousand/uL 140-400 N MPV (test code = 98868602) fL 7.5-12.5 N Due to platelet or RBC variability in size or shapethe result cannot be reported accurately. ABSOLUTE NEUTROPHILS (test code = 71610029) 5005 cells/uL 9278-7198 N ABSOLUTE LYMPHOCYTES (test code = 82779762) 1251 cells/uL 850-3900 N ABSOLUTE MONOCYTES (test code = 02557348) 272 cells/uL 200-950 N ABSOLUTE EOSINOPHILS (test code = 00134103) 252 cells/uL 15-500 N ABSOLUTE BASOPHILS (test code = 92939920) 20 cells/uL 0-200 N NEUTROPHILS (test code = 26879191) 73.6 % N LYMPHOCYTES (test code = 21036904) 18.4 % N MONOCYTES (test code = 44597557) 4.0 % N EOSINOPHILS (test code = 38759728) 3.7 % N BASOPHILS (test code = 07522453) 0.3 % N [facility]MOGLOBIN [id number] 18:17:00* Test Item Value Reference Range Interpretation Comments HEMOGLOBIN A1c (test code = 74565581) 7.0 % of total Hgb <5.7 H For someone without known diabetes, a hemoglobin R9kiisup of 6.5% or greater indicates that they [...] children. This test was performed on the [employer] viviane c503 platform.Effective 09/07/23, a change in test platforms from the[employer] to the Kathy viviane c503 may have [id number] results compared to historical results.Based [facility], the Kathy platform relative to the [employer] had an average increase in HbA1c value of< or = 0.3%. This difference is within accepted variability established by the National GlycohemoglobinStandardization Program. Note that not all individualswill have had a shift in their results and directcomparisons between historical and current results fortesting conducted on different platforms is notrecommended. [facility] META [id number] 15:13:00* Test Item Value Reference Range Interpretation Comme nts GLUCOSE (test code = 91854779) 132 mg/dL 65-99 H Fasting referenc e interval For someone without known diabetes, a glucosevalue >125 mg/dL indicates that they may havediabetes and this should be confirmed with afollow-up test. UREA NITROGEN (BUN) (test code = 95041430) 9 mg/dL 7-25 N CREATININE (test code = 10520820) 0.47 mg/dL 0.70-1.30 L EGFR (test code = 44249294) 120 mL/min/1.73m2 >=60 N BUN/CREATININE RATIO (test code = 79270455) 19 (calc) 6-22 N SODIUM (test code = 87119322) 140 mmol/L 135-146 N POTASSIUM (test code = 31784217) 4.1 mmol/L 3.5-5.3 N CHLORIDE (test code = 24819221) 101 mmol/L 98-110 N CARBON DIOXIDE (test code = 53536800) 31 mmol/L 20-32 N CALCIUM (test code = 46695794) 9.2 mg/dL 8.6-10.3 N PROTEIN, TOTAL (test code = 29939751) 6.6 g/dL 6.1-8.1 N ALBUMIN (test code = 99092890) 3.5 g/dL 3.6-5.1 L GLOBULIN (test code = 60046775) 3.1 g/dL (calc) 1.9-3.7 N ALBUMIN/GLOBULIN RATIO (test code = 42967213) 1.1 (calc) 1.0-2.5 N BILIRUBIN, TOTAL (test code = 05303239) 0.8 mg/dL 0.2-1.2 N ALKALINE PHOSPHATASE (test code = 15936341) 107 U/L 35-144 N AST (test code = 44861186) 10 U/L 10-35 N ALT (test code = 04087643) 15 U/L 9-46 N [facility]2024-[facility]-14 15:13:00* Test Item Value Reference Range Interpretation Comme nts WHITE BLOOD CELL COUNT (test code = 65192681) 6.9 Thousand/uL 3.8-10.8 N RED BLOOD CELL COUNT (test code = 52767704) 4.47 Million/uL 4.20-5.80 N HEMOGLOBIN (test code = 33430693) 10.9 g/dL 13.2-17.1 L HEMATOCRIT (test code = 43137942) 35.5 % 38.5-50.0 L MCV (test code = 93414982) 79.4 fL 80.0-100.0 L MCH (test code = 69380085) 24.4 pg 27.0-33.0 L MCHC (test code = 36986594) 30.7 g/dL 32.0-36.0 L RDW (test code = 07265934) 14.8 % 11.0-15.0 N PLATELET COUNT (test code = 19373378) 141 Thousand/uL 140-400 N MPV (test code = 77676031) 13.2 fL 7.5-12.5 H ABSOLUTE NEUTROPHILS (test code = 26849128) 4837 cells/uL 8486-1935 N ABSOLUTE LYMPHOCYTES (test code = 53642076) 1559 cells/uL 850-3900 N ABSOLUTE MONOCYTES (test cod e = 49230921) 290 cells/uL 200-950 N ABSOLUTE EOSINOPHILS (test code = 30469477) 193 cells/uL 15-500 N ABSOLUTE BASOPHILS (test cod e = 39467541) 21 cells/uL 0-200 N NEUTROPHILS (test code = 47010585) 70.1 % N LYMPHOCYTES (test code = 96755884) 22.6 % N MONOCYTES (test code = 76270459) 4.2 % N EOSINOPHILS (test code = 61145520) 2.8 % N BASOPHILS (test code = 09006628) 0.3 % N [facility]ITALPRO TIME WITH [id number] 11:00:00* Test Item Value Reference Range Interpretation Comme nts INR (test code = 79027730) 1.1 N Reference Range 0.9-1.1Moderate-intensity Warfarin Therapy 2.0-3.0Higher-intensity Warfarin Therapy 3.0-4.0 PT (test code = 06479058) 11.9 sec 9.0-11.5 H For additional information, please refer [email or web address] (This link is being provided for informational/educational purposes only.) [facility] MET [id number] 14:10:00* Test Item Value Reference Range Interpretation Comme nts GLUCOSE (test code = 09721121) 120 mg/dL 65-99 H Fasting referenc e interval For someone without known diabetes, a glucose valuebetween 100 and 125 mg/dL is consistent withprediabetes and should be confirmed with afollow-up test. UREA NITROGEN (BUN) (test code = 79728096) 24 mg/dL 7-25 N CREATININE (test code = 48996640) 0.73 mg/dL 0.70-1.30 N EGFR (test code = 56274461) 105 mL/min/1.73m2 >=60 N BUN/CREATININE RATIO (test code = 48307979) SEE NOTE: (calc) 6-22 N Not Reported: BUN an d Creatinine are within reference range. SODIUM (test code = 05072267) 138 mmol/L 135-146 N POTASSIUM (test code = 12013893) 4.3 mmol/L 3.5-5.3 N CHLORIDE (test code = 35646559) 101 mmol/L 98-110 N CARBON DIOXIDE (test code = 71495025) 27 mmol/L 20-32 N CALCIUM (test code = 80368921) 8.7 mg/dL 8.6-10.3 N [facility]2023-11-19 14:10:00* Test Item Value Reference Range Interpretation Comme nts WHITE BLOOD CELL COUNT (test code = 81660769) 7.3 Thousand/uL 3.8-10.8 N RED BLOOD CELL COUNT (test code = 78630826) 4.24 Million/uL 4.20-5.80 N HEMOGLOBIN (test code = 76503740) 10.3 g/dL 13.2-17.1 L HEMATOCRIT (test code = 02133034) 34.0 % 38.5-50.0 L MCV (test code = 87907850) 80.2 fL 80.0-100.0 N MCH (test code = 02714121) 24.3 pg 27.0-33.0 L MCHC (test code = 76915015) 30.3 g/dL 32.0-36.0 L RDW (test code = 20535141) 14.5 % 11.0-15.0 N PLATELET COUNT (test code = 57136682) 166 Thousand/uL 140-400 N MPV (test code = 18025926) fL 7.5-12.5 N Due to platelet or RBC variability in size or shapethe result cannot be reported accurately. ABSOLUTE NEUTROPHILS (test code = 54220178) 5015 cells/uL 6290-9120 N ABSOLUTE LYMPHOCYTES (test code = 74608976) 1657 cells/uL 850-3900 N ABSOLUTE MONOCYTES (test code = 21488706) 321 cells/uL 200-950 N ABSOLUTE EOSINOPHILS (test code = 35258216) 277 cells/uL 15-500 N ABSOLUTE BASOPHILS (test code = 27985729) 29 cells/uL 0-200 N NEUTROPHILS (test code = 64733299) 68.7 % N LYMPHOCYTES (test code = 54914490) 22.7 % N MONOCYTES (test code = 89206287) 4.4 % N EOSINOPHILS (test code = 43529023) 3.8 % N BASOPHILS (test code = 78955121) 0.4 % N [facility] HOS[facility]ITALBASIC MET [id number] 13:21:00* Test Item Value Reference Range Interpretation Comme nts GLUCOSE (test code = 37556576) 77 mg/dL 65-99 N Fasting referenc e interval UREA NITROGEN (BUN) (test code = 52427743) 15 mg/dL 7-25 N CREATININE (test code = 21758027) 0.79 mg/dL 0.70-1.30 N EGFR (test code = 07413704) 103 mL/min/1.73m2 >=60 N BUN/CREATININE RATIO (test code = 28440071) SEE NOTE: (calc) 6-22 N Not Reported: BUN and Creatinine are within reference range. SODIUM (test code = 43133630) 138 mmol/L 135-146 N POTASSIUM (test code = 87208074) 4.2 mmol/L 3.5-5.3 N CHLORIDE (test code = 85680923) 101 mmol/L 98-110 N CARBON DIOXIDE (test code = 29602787) 28 mmol/L 20-32 N CALCIUM (test code = 78894875) 8.9 mg/dL 8.6-10.3 N [facility] (DIFF/PLT)2023-11-16 13:21:00* Test Item Value Reference Range Interpretation Comme nts WHITE BLOOD CELL COUNT (test code = 08963270) 7.1 Thousand/uL 3.8-10.8 N RED BLOOD CELL COUNT (test code = 62452657) 4.30 Million/uL 4.20-5.80 N HEMOGLOBIN (test code = 63715099) 10.4 g/dL 13.2-17.1 L HEMATOCRIT (test code = 25660717) 34.6 % 38.5-50.0 L MCV (test code = 45492240) 80.5 fL 80.0-100.0 N MCH (test code = 23745865) 24.2 pg 27.0-33.0 L MCHC (test code = 85114423) 30.1 g/dL 32.0-36.0 L RDW (test code = 34945700) 14.5 % 11.0-15.0 N PLATELET COUNT (test code = 13972876) 154 Thousand/uL 140-400 N MPV (test code = 60302036) fL 7.5-12.5 N Due to platelet or RBC variability in size or shapethe result cannot be reported accurately. ABSOLUTE NEUTROPHILS (test code = 94179901) 4665 cells/uL 2975-7450 N ABSOLUTE LYMPHOCYTES (test code = 61674757) 1818 cells/uL 850-3900 N ABSOLUTE MONOCYTES (test code = 47612320) 320 cells/uL 200-950 N ABSOLUTE EOSINOPHILS (test code = 06215679) 270 cells/uL 15-500 N ABSOLUTE BASOPHILS (test code = 19530290) 28 cells/uL 0-200 N NEUTROPHILS (test code = 00741610) 65.7 % N LYMPHOCYTES (test code = 72621904) 25.6 % N MONOCYTES (test code = 65738434) 4.5 % N EOSINOPHILS (test code = 40390405) 3.8 % N BASOPHILS (test code = 89215041) 0.4 % N [facility] HOS[facility]ITALBASIC MET [id number] 12:29:00* Test Item Value Reference Range Interpretation Comme [facility] GLUCOSE (test code = 02296432) 103 mg/dL 65-99 H Fasting referenc e interval For someone without known diabetes, a glucose valuebetween 100 and 125 mg/dL is consistent withprediabetes and should be confirmed with afollow-up test. UREA NITROGEN (BUN) (test code = 10902360) 17 mg/dL 7-25 N CREATININE (test code = 57215613) 0.93 mg/dL 0.70-1.30 N EGFR (test code = 51845799) 95 mL/min/1.73m2 >=60 N BUN/CREATININE RATIO (test code = 69389486) SEE NOTE: (calc) 6-22 N Not Reported: BUN an d Creatinine are within reference range. SODIUM (test code = 56162792) 139 mmol/L 135-146 N POTASSIUM (test code = 20191137) 4.4 mmol/L 3.5-5.3 N CHLORIDE (test code = 23240188) 104 mmol/L 98-110 N CARBON DIOXIDE (test code = 95704931) 27 mmol/L 20-32 N CALCIUM (test code = 62718320) 8.3 mg/dL 8.6-10.3 L [facility] ([facility]FF/PLT)2023-11-12 12:29:00* Test Item Value Reference Range Interpretation Comme [facility] WHITE BLOOD CELL COUNT (test code = 35864157) 6.5 Thousand/uL 3.8-10.8 N RED BLOOD CELL COUNT (test code = 69312765) 4.12 Million/uL 4.20-5.80 L HEMOGLOBIN (test code = 02501506) 10.0 g/dL 13.2-17.1 L HEMATOCRIT (test code = 39191503) 32.9 % 38.5-50.0 L MCV (test code = 57811740) 79.9 fL 80.0-100.0 L MCH (test code = 42623501) 24.3 pg 27.0-33.0 L MCHC (test code = 78093577) 30.4 g/dL 32.0-36.0 L RDW (test code = 14988796) 14.5 % 11.0-15.0 N PLATELET COUNT (test code = 63985303) 146 Thousand/uL 140-400 N MPV (test code = 14910152) fL 7.5-12.5 N Due to platelet or RBC variability in size or shapethe result cannot be reported accurately. ABSOLUTE NEUTROPHILS (test code = 05679699) 4368 cells/uL 4392-5998 N ABSOLUTE LYMPHOCYTES (test code = 53177153) 1599 cells/uL 850-3900 N ABSOLUTE MONOCYTES (test code = 01184400) 280 cells/uL 200-950 N ABSOLUTE EOSINOPHILS (test code = 88075937) 241 cells/uL 15-500 N ABSOLUTE BASOPHILS (test code = 88992491) 13 cells/uL 0-200 N NEUTROPHILS (test code = 89769296) 67.2 % N LYMPHOCYTES (test code = 03203491) 24.6 % N MONOCYTES (test code = 79868836) 4.3 % N EOSINOPHILS (test code = 19195438) 3.7 % N BASOPHILS (test code = 84065790) 0.2 % N [facility] PANEL [id number] 21:25:00* Test Item Value Reference Range Interpretation Comme nts T3 UPTAKE (test code = 67535045) 34 % 22-35 N T4 (THYROXINE), TOTAL (test code = 68280579) 6.4 mcg/dL 4.9-10.5 N FREE T4 INDEX (T7) (test cod e = 75703090) 2.2 1.4-3.8 N TSH (test code = 37593577) 1.55 mIU/L 0.40-4.50 N [facility]ITALBAS[facility] MET [id number] 21:25:00* Test Item Value Reference Range Interpretation Comme nts GLUCOSE (test code = 95345192) 141 mg/dL 65-99 H Fasting referenc e interval For someone without known diabetes, a glucosevalue >125 mg/dL indicates that they may havediabetes and this should be confirmed with afollow-up test. UREA NITROGEN (BUN) (test code = 51844765) 18 mg/dL 7-25 N CREATININE (test code = 31374465) 0.66 mg/dL 0.70-1.30 L EGFR (test code = 22171631) 109 mL/min/1.73m2 >=60 N BUN/CREATININE RATIO (test code = 75060179) 27 (calc) 6-22 H SODIUM (test code = 47418724) 137 mmol/L 135-146 N POTASSIUM (test code = 83463487) 3.9 mmol/L 3.5-5.3 N CHLORIDE (test code = 52619101) 100 mmol/L 98-110 N CARBON DIOXIDE (test code = 26094218) 28 mmol/L 20-32 N CALCIUM (test code = 08076029) 8.6 mg/dL 8.6-10.3 N [facility] (DIFF/PLT)2023-11-10 21:25:00* Test Item Value Reference Range Interpretation Comme nts WHITE BLOOD CELL COUNT (test code = 45820961) 7.6 Thousand/uL 3.8-10.8 N RED BLOOD CELL COUNT (test code = 55267360) 4.35 Million/uL 4.20-5.80 N HEMOGLOBIN (test code = 64155859) 10.5 g/dL 13.2-17.1 L HEMATOCRIT (test code = 11260834) 34.7 % 38.5-50.0 L MCV (test code = 17191690) 79.8 fL 80.0-100.0 L MCH (test code = 48919873) 24.1 pg 27.0-33.0 L MCHC (test code = 50012588) 30.3 g/dL 32.0-36.0 L RDW (test code = 53699682) 14.4 % 11.0-15.0 N PLATELET COUNT (test code = 71336659) 159 Thousand/uL 140-400 N MPV (test code = 89260214) fL 7.5-12.5 N Due to platelet or RBC variability in size or shapethe result cannot be reported accurately. ABSOLUTE NEUTROPHILS (test code = 75387579) 5046 cells/uL 3453-8386 N ABSOLUTE LYMPHOCYTES (test code = 55438339) 2006 cells/uL 850-3900 N ABSOLUTE MONOCYTES (test code = 82680814) 319 cells/uL 200-950 N ABSOLUTE EOSINOPHILS (test code = 15179386) 198 cells/uL 15-500 N ABSOLUTE BASOPHILS (test code = 46696512) 30 cells/uL 0-200 N NEUTROPHILS (test code = 71939499) 66.4 % N LYMPHOCYTES (test code = 51773378) 26.4 % N MONOCYTES (test code = 59113330) 4.2 % N EOSINOPHILS (test code = 34503720) 2.6 % N BASOPHILS (test code = 95639143) 0.4 % N [facility],COMP W/RFL [id number] 21:25:00* Test Item Value Reference Range Interpretation Comme nts COLOR (test code = 38451169) DARK YELLOW YELLOW N APPEARANCE (test code = 62708969) CLOUDY CLEAR A SPECIFIC GRAVITY (test code = 15120112) 1.021 1.001-1.035 N PH (test code = 16867872) 5.5 5.0-8.0 N GLUCOSE (test code = 19049417) NEGATIVE NEGATIVE N BILIRUBIN (test code = 21112815) NEGATIVE NEGATIVE N KETONES (test code = 75940489) TRACE NEGATIVE A OCCULT BLOOD (test code = 54014076) NEGATIVE NEGATIVE N PROTEIN (test code = 60288611) 1+ NEGATIVE A NITRITE (test code = 70748106) NEGATIVE NEGATIVE N LEUKOCYTE ESTERASE (test code = 26803224) 2+ NEGATIVE A WBC (test code = 11101355) > OR = 60 /HPF 0-5 A RBC (test code = 39147597) NONE SEEN /HPF 0-2 N SQUAMOUS EPITHELIAL CELLS (test code = 48718508) NONE SEEN /HPF <=5 N BACTERIA (test code = 57893160) MANY /HPF NONE SEEN A HYALINE CAST (test code = 67583674) NONE SEEN /LPF NONE SEEN N NOTE (test code = 14776139) This urine was analyzed for the presence of WBC, RBC, bacteria, casts, and other formed elements. Only those elements seen were reported. [facility], UR [id number] 21:25:00* Test Item Value Reference Range Interpretation Comme nts SOURCE: (test code = 70501471) URINE STATUS: (test code = 10172639) FINAL ISOLATE 1: (test code = 88454168) Enterobacter cloacae complex A [facility],[id number] 21:25:00* Test Item Value Reference Range Interpretation Comme nts ISOLATE (test code = 75847702) N Enterobacter [place] acae complex AMOXICILLIN/CLAVULANI C (test code = 90460369) 16 R CEFAZOLIN (test code = 67163380) >=64 R For uncomplicate d UTI caused by E. coli,K. pneumoniae or P. mirabilis: Cefazolin issusceptible if LISETTE <32 mcg/mL and predictssusceptible to the oral agents cefaclor, cefdinir,cefpodoxime, cefprozil, cefuroxime, cephalexinand loracarbef. CEFTAZIDIME (test code = 29753648) <=1 S CEFEPIME (test code = 97845896) <=1 S CEFTRIAXONE (test code = 04572769) <=1 S CIPROFLOXACIN (test code = 25522317) <=0.25 S LEVOFLOXACIN (test code = 71770937) <=0.12 S GENTAMICIN (test code = 68447302) <=1 S IMIPENEM (test code = 67166614) <=0.25 S NITROFURANTOIN (test code = 93820707) 64 I PIPERACILLIN/TAZOBACT AM (test code = 42465816) <=4 S TOBRAMYCIN (test code = 09983024) <=1 S TRIMETHOPRIM/SULFA (test code = 36433022) >=320 R Legend:S = Susce ptible I = IntermediateR = Resistant NS = Not susceptible* = Not tested NR = Not reportedNN = See antimicrobic comments [facility] [id number] 21:25:00* Test Item Value Reference Range Interpretation Comme [facility] REFLEXIVE URINE CULTURE (test code = 94723395) CULTURE I NDICATED - RESULTS TO FOLLOW [facility] MET [id number] 10:09:00* Test Item Value Reference Range Interpretation Comme [facility] GLUCOSE (test code = 10125886) 141 mg/dL 65-99 H Fasting referenc e interval For someone without known diabetes, a glucosevalue >125 mg/dL indicates that they may havediabetes and this should be confirmed with afollow-up test. UREA NITROGEN (BUN) (test code = 89305276) 18 mg/dL 7-25 N CREATININE (test code = 70115166) 0.66 mg/dL 0.70-1.30 L EGFR (test code = 94022332) 109 mL/min/1.73m2 >=60 N BUN/CREATININE RATIO (test code = 00370406) 27 (calc) 6-22 H SODIUM (test code = 72070410) 137 mmol/L 135-146 N POTASSIUM (test code = 63995426) 3.9 mmol/L 3.5-5.3 N CHLORIDE (test code = 70645855) 100 mmol/L 98-110 N CARBON DIOXIDE (test code = 65083700) 28 mmol/L 20-32 N CALCIUM (test code = 32269282) 8.6 mg/dL 8.6-10.3 N [facility]23-11-10 10:09:00* Test Item Value Reference Range Interpretation Comme nts WHITE BLOOD CELL COUNT (test code = 10131372) 7.6 Thousand/uL 3.8-10.8 N RED BLOOD CELL COUNT (test code = 79781196) 4.35 Million/uL 4.20-5.80 N HEMOGLOBIN (test code = 23208566) 10.5 g/dL 13.2-17.1 L HEMATOCRIT (test code = 17454373) 34.7 % 38.5-50.0 L MCV (test code = 81123010) 79.8 fL 80.0-100.0 L MCH (test code = 82563069) 24.1 pg 27.0-33.0 L MCHC (test code = 75220251) 30.3 g/dL 32.0-36.0 L RDW (test code = 19396354) 14.4 % 11.0-15.0 N PLATELET COUNT (test code = 71097076) 159 Thousand/uL 140-400 N MPV (test code = 71918372) fL 7.5-12.5 N Due to platelet or RBC variability in size or shapethe result cannot be reported accurately. ABSOLUTE NEUTROPHILS (test code = 77316106) 5046 cells/uL 3921-9141 N ABSOLUTE LYMPHOCYTES (test code = 56393653) 2006 cells/uL 850-3900 N ABSOLUTE MONOCYTES (test code = 42320568) 319 cells/uL 200-950 N ABSOLUTE EOSINOPHILS (test code = 71797305) 198 cells/uL 15-500 N ABSOLUTE BASOPHILS (test code = 14244322) 30 cells/uL 0-200 N NEUTROPHILS (test code = 24874837) 66.4 % N LYMPHOCYTES (test code = 22059584) 26.4 % N MONOCYTES (test code = 51999482) 4.2 % N EOSINOPHILS (test code = 83841849) 2.6 % N BASOPHILS (test code = 10706016) 0.4 % N [facility] W/RFL [id number] 10:09:00* Test Item Value Reference Range Interpretation Comme nts COLOR (test code = 97860295) DARK YELLOW YELLOW N APPEARANCE (test code = 12204577) CLOUDY CLEAR A SPECIFIC GRAVITY (test code = 53300991) 1.021 1.001-1.035 N PH (test code = 41011738) 5.5 5.0-8.0 N GLUCOSE (test code = 43330354) NEGATIVE NEGATIVE N BILIRUBIN (test code = 36049735) NEGATIVE NEGATIVE N KETONES (test code = 40155143) TRACE NEGATIVE A OCCULT BLOOD (test code = 20887051) NEGATIVE NEGATIVE N PROTEIN (test code = 73130179) 1+ NEGATIVE A NITRITE (test code = 80639714) NEGATIVE NEGATIVE N LEUKOCYTE ESTERASE (test code = 77319736) 2+ NEGATIVE A WBC (test code = 82531082) > OR = 60 /HPF 0-5 A RBC (test code = 11409490) NONE SEEN /HPF 0-2 N SQUAMOUS EPITHELIAL CELLS (test code = 45634861) NONE SEEN /HPF <=5 N BACTERIA (test code = 68199910) MANY /HPF NONE SEEN A HYALINE CAST (test code = 23904470) NONE SEEN /LPF NONE SEEN N NOTE (test code = 30038799) This urine was analyzed for the presence of WBC, RBC, bacteria, casts, and other formed elements. Only those elements seen were reported. [facility], UR [id number] 10:09:00* Test Item Value Reference Range Interpretation Comme nts SOURCE: (test code = 25798406) URINE STATUS: (test code = 17730528) PRELIMINARY ISOLATE 1: (test code = 08159668) Gram negative bacilli isolated A [facility],[id number] 10:09:00* Test Item Value Reference Range Interpretation Comme nts ISOLATE (test code = 77968727) N Gram negative ba cilli isolated [facility] [id number] 10:09:00* Test Item Value Reference Range Interpretation Comme nts REFLEXIVE URINE CULTURE (test code = 84301070) CULTURE I NDICATED - RESULTS TO FOLLOW [facility] HOSPITALTHYROID PANEL [id number] 10:09:00* Test Item Value Reference Range Interpretation Comme nts T3 UPTAKE (test code = 77929203) 34 % 22-35 N T4 (THYROXINE), TOTAL (test code = 48557273) 6.4 mcg/dL 4.9-10.5 N FREE T4 INDEX (T7) (test cod e = 99195289) 2.2 1.4-3.8 N TSH (test code = 55871212) 1.55 mIU/L 0.40-4.50 N [facility] HOSPITALCOMP META [id number] 21:49:00* Test Item Value Reference Range Interpretation Comme nts GLUCOSE (test code = 51809402) 117 mg/dL 65-99 H Fasting referenc e interval For someone without known diabetes, a glucose valuebetween 100 and 125 mg/dL is consistent withprediabetes and should be confirmed with afollow-up test. UREA NITROGEN (BUN) (test code = 59705355) 18 mg/dL 7-25 N CREATININE (test code = 66966289) 0.61 mg/dL 0.70-1.30 L EGFR (test code = 85039412) 111 mL/min/1.73m2 >=60 N BUN/CREATININE RATIO (test code = 76780499) 30 (calc) 6-22 H SODIUM (test code = 38230763) 137 mmol/L 135-146 N POTASSIUM (test code = 17054478) 4.4 mmol/L 3.5-5.3 N CHLORIDE (test code = 47716192) 102 mmol/L 98-110 N CARBON DIOXIDE (test code = 32807550) 26 mmol/L 20-32 N CALCIUM (test code = 30903775) 8.7 mg/dL 8.6-10.3 N PROTEIN, TOTAL (test code = 54456969) 6.5 g/dL 6.1-8.1 N ALBUMIN (test code = 04064446) 3.7 g/dL 3.6-5.1 N GLOBULIN (test code = 34014530) 2.8 g/dL (calc) 1.9-3.7 N ALBUMIN/GLOBULIN RATIO (test code = 83940671) 1.3 (calc) 1.0-2.5 N BILIRUBIN, TOTAL (test code = 52928125) 0.5 mg/dL 0.2-1.2 N ALKALINE PHOSPHATASE (test code = 25300571) 112 U/L 35-144 N AST (test code = 00103327) 17 U/L 10-35 N ALT (test code = 43749423) 17 U/L 9-46 N [facility]ITAL[facility] TIME WITH [id number] 21:49:00* Test Item Value Reference Range Interpretation Comme nts INR (test code = 34847969) 1.1 N Reference Range 0.9-1.1Moderate-intensity Warfarin Therapy 2.0-3.0Higher-intensity Warfarin Therapy 3.0-4.0 PT (test code = 43080201) 11.4 sec 9.0-11.5 N For additional information, please refer [email or web address] (This link is being provided for informational/educational purposes only.) [facility]2023-11-09 21:49:00* Test Item Value Reference Range Interpretation Comme nts WHITE BLOOD CELL COUNT (test code = 92323413) 8.0 Thousand/uL 3.8-10.8 N RED BLOOD CELL COUNT (test code = 32738230) 4.25 Million/uL 4.20-5.80 N HEMOGLOBIN (test code = 22174571) 10.1 g/dL 13.2-17.1 L HEMATOCRIT (test code = 94698777) 33.9 % 38.5-50.0 L MCV (test code = 18731475) 79.8 fL 80.0-100.0 L MCH (test code = 56415026) 23.8 pg 27.0-33.0 L MCHC (test code = 12516225) 29.8 g/dL 32.0-36.0 L RDW (test code = 77314100) 14.5 % 11.0-15.0 N PLATELET COUNT (test code = 98239981) 149 Thousand/uL 140-400 N MPV (test code = 01281390) fL 7.5-12.5 N Due to platelet or RBC variability in size or shapethe result cannot be reported accurately. ABSOLUTE NEUTROPHILS (test code = 55099750) 5928 cells/uL 4849-5706 N ABSOLUTE LYMPHOCYTES (test code = 22618847) 1560 cells/uL 850-3900 N ABSOLUTE MONOCYTES (test code = 88070377) 336 cells/uL 200-950 N ABSOLUTE EOSINOPHILS (test code = 72480227) 160 cells/uL 15-500 N ABSOLUTE BASOPHILS (test code = 97528506) 16 cells/uL 0-200 N NEUTROPHILS (test code = 15417094) 74.1 % N LYMPHOCYTES (test code = 11562476) 19.5 % N MONOCYTES (test code = 36172691) 4.2 % N EOSINOPHILS (test code = 80306687) 2.0 % N BASOPHILS (test code = 24272981) 0.2 % N [facility] [id number] 20:16:00* Test Item Value Reference Range Interpretation Comme nts HEMOGLOBIN A1c (test code = 25967257) 10.3 % of total Hgb <5.7 H For someone without known diabetes, a hemoglobin U3lplptf of 6.5% or greater indicates that they [...] of diabetes for children. HbA1c performed on [employer] platform.Effective 09/07/23 a change in test platforms may have shifted HbA1c results compared to historical results. [facility]
[2024-07-29] MEDS ORDERED: NA CHLORIDE 0.9% 250 ML ONE (12:13)
[2024-07-29] MEDS ORDERED: VANCOMYCIN 1 GM/VIAL ONE (12:13)
--- NOTE | 2024-07-29 12:46 | ER ---
Nurse's Notes [facility] Name: Tej Kumar Age: 59 yrs Sex: Male : 1965 Arrival Date: 07/29/2024 Time: 10:21 Bed 5 Private MD: Diagnosis: Sacral Wound Presentation: 07/29 10:27 Chief complaint: EMS states: "toned out for needing a dressing change on his wound vac mb9 on his gluteus ary after wound care nurse didn't show up at house this morning.". Coronavirus screen: Vaccine status: Patient reports receiving the 2nd dose of the covid vaccine. Ebola Screen: No symptoms or risks identified at this time. Initial Sepsis Screen: Does the patient meet any 2 criteria? No. Patient's initial sepsis screen is negative. Does the patient have a suspected source of infection? No. Patient's initial sepsis screen is negative. Risk Assessment: Do you want to hurt yourself or someone else? Patient reports no desire to harm self or others. Onset of symptoms was July 29, 2024. 10:27 Method Of Arrival: EMS: [facility] mb9 10:27 Acuity: DAVID 3 mb9 Triage Assessment: 10:29 General: Appears in no apparent distress. Behavior is calm, cooperative. Pain: Denies mb9 pain. EENT: No signs and/or symptoms were reported regarding the EENT system. Neuro: Lilly Agitation-Sedation Scale (RASS): 0 - Alert and Calm Level of Consciousness is awake, alert, obeys commands, Oriented to person, place, time, situation, Appropriate for age. Cardiovascular: Patient's skin is warm and dry. Respiratory: Airway is patent Respiratory effort is even, unlabored, Respiratory pattern is regular, symmetrical. GI: Abdomen is round non-distended. GI: Colostomy site is clean and dry. Ostomy appliance is intact. : No signs and/or symptoms were reported regarding the genitourinary system. : Mendoza in place. Derm: Skin is pink, warm \\T\\ dry. Derm: wound vac attached to buttocks. Musculoskeletal: right AKA. Historical: - Allergies: 10:28 unknown antibiotic and steroid; mb9 - Home Meds: 10:28 None [Active]; mb9 - PMHx: 10:28 CVA; Diabetes mellitus; mb9 - PSHx: 10:28 Right AKA; mb9 - Immunization history:: Adult Immunizations up to date. - Infectious Disease History:: Denies. - Social history:: Smoking status: Patient denies any tobacco usage or history of. Screenin:30 [facility] ED Fall Risk Assessment (Adult) History of falling in the last 3 months, mb9 including since admission No falls in past 3 months (0 pts) Confusion or Disorientation No (0 pts) Intoxicated or Sedated No (0 pts) Impaired Gait Yes (1 pt) Mobility Assist Device Used Yes (1 pt) Altered Elimination Yes (1 pt) Score/Fall Risk Level 3 or more points = High Risk Oriented to surroundings, Maintained a safe environment, Educated pt \\T\\ family on fall prevention, incl call for assistance when getting out of bed. Abuse screen: Denies threats or abuse. Nutritional screening: No deficits noted. Tuberculosis screening: No symptoms or risk factors identified. Assessment: 10:31 Reassessment: see triage assessment if needing anything. mb9 10:54 Reassessment: Wound care consult faxed to wound care center. mb9 11:55 Reassessment: No changes from previously documented assessment. Patient and/or family mb9 updated on plan of care and expected duration. Pain level reassessed. Patient is alert, oriented x 3, equal unlabored respirations, skin warm/dry/pink. 12:22 Derm: Wound vac removed. Fluid collection chamber full. Dressing removed. Significant mb9 stage IV decubitus ulcer noted to buttocks. Yellow wound bed noted. Wound healing RN at bedside assessing wound and speaking to Dr. Drake who states he will be here within [address] Mayo and patient about possible debridement of wound and admission. Placed wet to dry dressing with Kerlix x 2, abd pad x 2 and tape. Pt tolerated well. at bedside. 14:27 Reassessment: No changes from previously documented assessment. Patient and/or family mb9 updated on plan of care and expected duration. Pain level reassessed. Patient is alert, oriented x 3, equal unlabored respirations, skin warm/dry/pink. Vital Signs: 10:27 BP 109 / 67; Pulse 78; Resp 18; Temp 98; Pulse Ox 100% ; Weight 129.27 kg; Height 6 ft. mb9 0 in. ; Pain 0/10; 13:12 BP 116 / 87; Pulse 80; Resp 18; Pulse Ox 95% on R/A; mb9 10:27 Body Mass Index 38.65 (129.27 kg, 182.88 cm) mb9 10:27 Pain Scale: Adult mb9 ED Course: 10: Patient arrived in ED. mb9 10:27 Arm band placed on. mb9 10:28 Triage completed. mb9 10:31 Josue Mayo MD is Attending Physician. ec2 10:31 Placed in gown. Bed in low position. Call light in reach. Side rails up X 1. Provided mb9 Education on: press call light if needing anything. Client placed on continuous cardiac and pulse oximetry monitoring. NIBP monitoring applied. Door closed. Noise minimized. Warm blanket given. 10:32 Liliana Watson RN is Primary Nurse. mb9 10:32 No provider procedures requiring assistance completed. mb9 12:27 Wound care: located on coccyx, left gluteus ary and right gluteus ary was mb9 cleaned with with NS, dressed with Kerlix, ABD pads, SEE NURSES NOTES. . 12:45 Zhou Drake MD is Hospitalizing Provider. ec2 13:13 Initial lab(s) drawn, by ED staff, sent to lab. Inserted saline lock: 20 gauge in left mb9 forearm, using aseptic technique. Blood collected. Flushed with 10 mL NS. 13:14 BMP Sent. mb9 13:14 CBC with Diff Sent. mb9 13:31 331 CM met with Mr. Fragoso and his Chery at the bedside in the ED exam room. ane Patient identified by name and . Demographic sheet confirmed. Patient states he does not ambulate and is needs full assistance for ADLs. He reports that he lives with his Chery who is his primary caregiver. He explains that he thinks someone was trying to get him signed up for HH but he does not have HH right now. He has a home oxygen concentrator that he uses at night at 2L, and also has a mechanical lift, however is missing the sling portion. He also has a hospital bed in his home. He is unsure of the plan for discharge but acknowledges he is in need of a higher level of care. He states that if he is to return home, perhaps Medicare will provide and an "air mattress" . No MPOA in place at this time. CM will follow up with provider, continue to follow and coordinate care during this hospital stay. 1429 CM spoke with Rubin Ruiz, per Sara, patient was not approved by a ( unknown which service) and was told patient was "too sick" for . Dr. Drake wished for patient to receive debridement and discharge possibly to [facility]. 1433 CM spoke with Ramona from [facility], and she confirmed patient had wound services but was discharged in May. CM will continue to follow. 1446 CM reached out to Radha from [facility] to inquire if a referral had been sent by a company on behalf of . Awaiting response. 1453 CM spoke with Radha and she relayed that they did receive a referral from [facility] today. [facility] had tried to get him admitted to [facility] but was denied and told he "needed to get stronger then go to [facility]. ..we were thinking he may actually be LTAC appropriate." CM will follow and hand off report to weekend CM. 14:27 Patient admitted, IV remains in place. mb9 Administered Medications: 13:24 Drug: vancoMYCIN IVPB 1 grams IVPB once over 2 hrs Route: IVPB; Infused Over: 2 hrs; Site: left forearm; 14:27 Follow up: Response: No adverse reaction; IV Status: Infusion continued upon admission mb9 Medication: 10:32 VIS not applicable for this client. mb9 Outcome: 12:46 Decision to Hospitalize by Provider. ec2 14:27 Admitted to Med/surg accompanied by nurse, accompanied by tech, via stretcher, matheus 14:27 Condition: stable 14:27 Instructed on the need for admit, 14:27 Patient left the ED. mb9 Signatures: Sara Shabazz RN RN ss Wilkerson, Mary Beth, RN RN mb9 Josue Mayo MD MD ec2 Dorothy Singh RN RN ane Corrections: (The following items were deleted from the chart) 13:11 10:27 Acuity: DAVID 4 mb9 mb9
--- NOTE | 2024-07-29 12:46 | EDPHYS ---
Physician Documentation [facility] Name: Tej Kumar Age: 59 yrs Sex: Male : 1965 Arrival Date: 07/29/2024 Time: 10:21 Bed 5 Private MD: ED Physician Josue Mayo HPI: 07/29 10:47 This 59 yrs old Male presents to ER via EMS with complaints of wound eval. ec2 10:47 Patient arrives today for evaluation of his wound. Patient has a chronic wound with a ec2 wound VAC in place. Denies any other concerns. Patient reports that he was supposed to follow-up and have wound care evaluated however has not done this. No other concerns. Patient states that his pressure is full and he is unable to change and establish appropriate care. Historical: - Allergies: 10:28 unknown antibiotic and steroid; mb9 - Home Meds: 10:28 None [Active]; mb9 - PMHx: 10:28 CVA; Diabetes mellitus; mb9 - PSHx: 10:28 Right AKA; mb9 - Immunization history:: Adult Immunizations up to date. - Infectious Disease History:: Denies. - Social history:: Smoking status: Patient denies any tobacco usage or history of. ROS: 10:47 Constitutional: as per hpi ec2 Exam: 10:47 Constitutional: GEN: NAD Head: atraumatic Eyes: EOMI Ears: External ears are ec2 normal. CV: regular rate LUNGS: no respiratory distress ABD: non-distended SKIN: no evidence of rashes MSK: no evidence of trauma Vital Signs: 10:27 BP 109 / 67; Pulse 78; Resp 18; Temp 98; Pulse Ox 100% ; Weight 129.27 kg; Height 6 ft. mb9 0 in. ; Pain 0/10; 13:12 BP 116 / 87; Pulse 80; Resp 18; Pulse Ox 95% on R/A; mb9 10:27 Body Mass Index 38.65 (129.27 kg, 182.88 cm) mb9 10:27 Pain Scale: Adult mb9 MDM: 10:31 Patient medically screened. ec2 10:47 Data reviewed: vital signs. ED course: Patient arrives today for evaluation of his ec2 wound and inability to establish care for follow-up care. Examination remarkable for well-appearing nontoxic individual is hemodynamically stable. Will see if we have no crutches to help to change his wound VAC. . 12:11 ED course: Upon changing wound with wound care, large sacral tracking wound, will ec2 obtain lab work, CT of the pelvis with contrast and empirically give vancomycin.. 12:45 ED course: I discussed the case with patient's primary care doctor, who agrees ec2 except the patient for admission. Will admit for antibiotics, debridement. 07/29 12:07 Order name: CBC with Diff ec2 07/29 12:07 Order name: BMP ec2 07/29 12:56 Order name: Magnesium EDMS 07/29 12:56 Order name: Prealbumin EDMS 07/29 12:56 Order name: Protime (+INR) EDMS 07/29 12:56 Order name: CBC with Automated Diff EDMS 07/29 12:56 Order name: CBC with Automated Diff EDMS 07/29 12:56 Order name: CBC with Automated Diff EDMS 07/29 12:56 Order name: CBC with Automated Diff EDMS 07/29 12:56 Order name: Comprehensive Metabolic Panel EDMS 07/29 12:56 Order name: Comprehensive Metabolic Panel EDMS 07/29 12:56 Order name: Comprehensive Metabolic Panel EDMS 07/29 12:56 Order name: Comprehensive Metabolic Panel EDMS 07/29 12:56 Order name: Blood Culture EDMS 07/29 12:56 Order name: Wound Culture EDMS 07/29 13:46 Order name: CBC Smear Scan EDMS 07/29 12:07 Order name: CT Pelvis w cont ec2 07/29 10:46 Order name: CONS [facility] Cons EDMS 07/29 12:56 Order name: CONS Physician Consult EDMS 07/29 12:56 Order name: Physical Therapy Consult EDMS 07/29 12:56 Order name: Social Service Consult EDMS 07/29 12:09 Order name: IV Saline Lock; Complete Time: 13:14 ap3 Administered Medications: 13:24 Drug: vancoMYCIN IVPB 1 grams IVPB once over 2 hrs Route: IVPB; Infused Over: 2 hrs; ss Site: left forearm; 14:27 Follow up: Response: No adverse reaction; IV Status: Infusion continued upon admission mb9 Disposition Summary: 07/29/24 12:46 Hospitalization Ordered Notes: Hospitalization Status: Inpatient Admission ec2 Provider: Zhou Drake ec2 Location: Telemetry/[facility] (Inpatient) ec2 Condition: Stable ec2 Problem: new ec2 Symptoms: have improved ec2 Bed/Room Type: Standard ec2 Room Assignment: 213(07/29/24 12:59) mb4 Diagnosis - Sacral Wound ec2 Discharge Instructions: - Discharge Summary Sheet ec2 - Wound Care, Adult ec2 Forms: - Medication Reconciliation Form ec2 - SBAR form ec2 - Leadership Thank You Letter ec2 Signatures: Dispatcher [employer] Sara Gentile RN RN ss Adriana Cobos RN RN ap3 Phyllis Sow mb4 Liliana Watson RN RN mb9 Josue Mayo MD MD ec2 Corrections: (The following items were deleted from the chart) 12:59 12:46 ec2 mb4
[2024-07-29] MEDS ORDERED: ONDANSETRON 4 MG/2 ML VIAL IV PRN (12:51)
--- NOTE | 2024-07-29 13:00 | P.HP ---
Certification for Inpatient Patient admitted to: Inpatient With expected LOS: >2 Midnights Patient will require the following post-hospital care: Retirement Practitioner: I am a practitioner with admitting privileges, knowledge of patient current condition, hospital course, and medical plan of care. Services: Services provided to patient in accordance with Admission requirements found in Title 42 Section 412.3 of the Code of Federal Regulations Patient History Date of Service: 07/29/24 Primary Care Provider: Noelle Reason for admission: sacral pressure ulcer History of Present Illness: Patient of mine who was sent to the ER by [facility]. He was previously discharged to Hospice 2 months ago. In the meantime he left hospice. Went to [facility]. Seems his sacral decubitus got infected. Had a coloectomy with colostmy bag to prevent contamination of the wound. He was discharged with a wound vac to be managed by [facility]. However they felt they could not manage this patient with just a wound vac. He is bed bound, has no sergio lift. Planning on sending him to a long-term assisted. Were working on [facility]. However today the family called( [facility]). Told them the wound vac had fallen off and the wound was leaking. The home health nurse asked them to go to the ER. The Wound care nurse (Elisabeth) saw him and noted approx 60-70% non viable yellow tissue and would require surgical debridgement before a wound vac could be placed. Allergies No Known Drug Allergies Allergy (Verified 03/24/23 00:07) Unknown - Past Medical/Surgical History Diabetic: Yes -: IDDM -: Lymphedema -: Morbid Obesity -: Kidney stones -: severe neuropathy -: Rt AKA - Social History Alcohol use: No CD- Drugs: No Caffeine use: No Review of Systems 10-point ROS is otherwise unremarkable General: Weakness Integumentary: Other (sacral decubitus ) Physical Examination - Physical Exam General: Alert, In no apparent distress HEENT: Atraumatic, PERRLA, Mucous membr. moist/pink, EOMI, Sclerae nonicteric Neck: Supple, 2+ carotid pulse no bruit, No LAD, Without JVD or thyroid abnormality Respiratory: Clear to auscultation bilaterally, Normal air movement Cardiovascular: Regular rate/rhythm, Normal S1 S2 Gastrointestinal: Normal bowel sounds, No tenderness Musculoskeletal: No tenderness Integumentary: No rashes, Pressure ulcer (stage 3 sacral decubitus ) Neurological: Normal gait, Normal speech, Normal strength at 5/5 x4 extr, Normal tone, Normal affect Lymphatics: No axilla or inguinal lymphadenopathy Assessment and Plan - Problems (Diagnosis) (1) Sacral decubitus ulcer, stage III Current Visit: Yes Status: Acute Plan: will have the patient seen by Dr. Cohen. for debridgement. will order cultures (2) Type 2 diabetes mellitus without complications Current Visit: No Status: Acute Plan: will start him on a sliding scale. will need to get his home insulin dosage. Qualifiers: Diabetes mellitus long-term insulin use: with superintendent container terminal use Qualified Code(s): E11.9 - Type 2 diabetes mellitus without complications; Z79.4 - marine oil terminal superintendent (current) use of insulin (3) Urinary retention Current Visit: No Status: Chronic Plan: continue superintendent container terminal prajapati care (4) HTN (hypertension) Current Visit: No Status: Chronic Qualifiers: Hypertension type: primary hypertension (5) Severe calorie deficiency Current Visit: No Status: Chronic Plan: will work on placement for the patient Discharge Plan: Intermediate Plan to discharge in: Greater than 2 days - Advance Directives Does patient have a Living Will: No Does patient have a Durable POA for Healthcare: Yes - Code Status/Comfort Care Code Status Assessed: Yes Code Status: Full Code Physician Review: Patient Assessed, Agree with Above Assessment and Plan Critical Care: No Time Spent Managing Pts Care (In Minutes): 80
[2024-07-29 13:14] LABS: Absolute Basophils 0.1 K/uL (0-0.5); Absolute Eosinophils 0.1 K/uL (0-0.5); Absolute Lymphocytes (CBC) 1.7 K/uL (0.7-4.9); Absolute Monocytes 0.3 K/uL (0.1-1.3); Absolute Neutrophil 7.1 K/uL (1.8-8.0); Basophils % 0.8 % (0-1.3); Hematocrit 32.5 % (39.6-49.0); Hemoglobin 9.6 g/dL (13.6-17.9); Lymphocytes % 18.2 % (15.3-44.8); MCHC 29.5 g/dL (32.0-36.0); MCV 74.7 fL (80-100); MPV 10.2 fL (7.6-11.3); Monocytes % 3.6 % (3.3-12.3); Neutrophils % 76.4 % (41.7-73.7); Platelets 202 thou/uL (152-406); RBC Red Blood Cell Count 4.35 M/uL (4.33-5.43); Red Cell Distribution Width 21.6 % (12.1-15.2)
[2024-07-29 13:29] LABS: Anion Gap 8.3 mEq/L (5.0-15.0); BUN Blood Urea Nitrogen 6 mg/dL (7-18); Bicarbonate 27 mEq/L (21-32); Glucose Level 116 mg/dL (74-106); Potassium 3.3 mEq/L (3.5-5.1); Sodium Level 137 mEq/L (136-145)
[2024-07-29 13:30] LABS: Glomerular Filtration Rate 145 ml/min (=/>90)
[2024-07-29 13:32] LABS: PT Prothrombin Time 15.3 SECONDS (9.4-12.5); Protime INR 1.38
[2024-07-29 13:45] LABS: Platelet Estimate ADEQ; White Blood Cell Scan OK (OK)
[2024-07-29 13:46] LABS: Anisocytosis 1+; Blood Morphology Comment NOTED (NOT SEEN)
--- NOTE | 2024-07-29 14:28 | RAD REPORT ---
EXAM: CT pelvis with contrast HISTORY: [facility] MAIN large buttock wound Bed Name: 5 COMPARISON: 06/08/2024 TECHNIQUE: Multiple contiguous axial images were obtained and a CT of the pelvis with IV contrast. Sa gittal and coronal reformats were performed. One or more of the following dose reduction techniques were used: Automated exposure control, adjustment of the mA and/or kV according to patient size, and/ or iterative reconstruction. FINDINGS: Left lower quadrant ostomy. Mild inflammation is seen in the region of the ostomy site..No abscess se en in the pelvis. There is a very large deep wound along the left buttock medially. The wound maximally measures nearly 10 cm in transverse dimension and extends approximately 60 mm in depth from the skin surface. The inferior sacrum and coccygeal levels are in very close approximation to this wound however no cortical destruction seen to indicate osteomyelitis. No pelvic fractures are seen. Osteoarthritic changes of both hips, slightly greater on the right. No abnormal areas of contrast-enhancement to suggest tumor or infection. Mendoza catheter decompresses the urinary bladder. IMPRESSION: A very large and deep wound is present medial left buttock in close approximation to the midline structures. There is a close approximation of the inferior sacrum and coccygeal osseous levels to this wound however no osteomyelitis currently seen. No intrapelvic abscess seen.
[2024-07-29] MEDS: HYDROMORPHONE HCL 0.5 MG/0.5 ML INJ IV PRN (15:22)
[2024-07-29] MEDS: INSULIN REGULAR (HUMAN) 100 UNIT/ML SQ SCH (16:30)
[2024-07-29] MEDS: NA CHLORIDE 0.9% 1,000 ML IV SCH (17:01)
[2024-07-29] MEDS: ENOXAPARIN 40 MG/0.4 ML SQ SCH (17:03)
[2024-07-29] MEDS: AMPICILLIN/SULBACT 1.5 GM in NA CHLORIDE 0.9% 100 ML IVPB SCH (17:03)
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
[2024-07-29] MEDS: DOXYCYCLINE 100 MG in NA CHLORIDE 0.9% 100 ML IVPB SCH (21:03)
[2024-07-30 06:01] LABS: Absolute Eosinophils 0.2 K/uL (0-0.5); Absolute Lymphocytes (CBC) 1.8 K/uL (0.7-4.9); Absolute Monocytes 0.4 K/uL (0.1-1.3); Absolute Neutrophil 4.6 K/uL (1.8-8.0); Basophils % 0.6 % (0-1.3); Eosinophils % 2.8 % (0-4.4); Hematocrit 28.9 % (39.6-49.0); Hemoglobin 8.8 g/dL (13.6-17.9); Lymphocytes % 25.4 % (15.3-44.8); MCH 22.5 pg (27.0-35.0); MCHC 30.4 g/dL (32.0-36.0); MCV 74.1 fL (80-100); MPV 9.2 fL (7.6-11.3); Monocytes % 5.1 % (3.3-12.3); Neutrophils % 66.1 % (41.7-73.7); Nucleated Red Blood Cells % 0.1 % (0-0); Platelets 184 thou/uL (152-406)
[2024-07-30 06:20] LABS: Albumin 2.2 g/dL (3.4-5.0); Albumin/Globulin Ratio 0.6 (1.1-1.8); Alkaline Phosphatase 76 U/L (45-117); Anion Gap 4.4 mEq/L (5.0-15.0); BUN Blood Urea Nitrogen 7 mg/dL (7-18); Bicarbonate 30 mEq/L (21-32); Bilirubin Total 0.5 mg/dL (0.2-1.0); Globulin 3.6 g/dL (2.3-3.5); Glomerular Filtration Rate 139 ml/min (=/>90); Glucose Level 113 mg/dL (74-106); Magnesium 1.8 mg/dL (1.6-2.4); Potassium 3.4 mEq/L (3.5-5.1); Protein, Total 5.8 g/dL (6.4-8.2); Sodium Level 140 mEq/L (136-145)
[2024-07-30 06:32] LABS: ALT/SGPT < 14 U/L (16-61); AST/SGOT < 10 U/L (15-37)
--- NOTE | 2024-07-30 13:21 | P.PN ---
Subjective Date of Service: 07/30/24 Primary Care Provider: Noelle Chief Complaint: sacral pressure ulcer Subjective: No new changes Review of Systems 10-point ROS is otherwise unremarkable Musculoskeletal: Other (sacral decubitus ) Physical Examination - Vital Signs Temperature: 98.8 F Blood Pressure: 124/60 Pulse: 75 Respirations: 16 Pulse Ox (%): 95 - Physical Exam General: Alert, In no apparent distress HEENT: Atraumatic, PERRLA, EOMI Neck: Supple, JVD not distended Respiratory: Clear to auscultation bilaterally, Normal air movement Cardiovascular: Regular rate/rhythm, Normal S1 S2 Gastrointestinal: Normal bowel sounds, No tenderness Musculoskeletal: No tenderness Integumentary: No rashes Neurological: Normal speech, Normal tone, Normal affect Lymphatics: No axilla or inguinal lymphadenopathy Assessment And Plan - Current Problems (Diagnosis) (1) Sacral decubitus ulcer, stage III Current Visit: Yes Status: Acute Plan: will have the patient seen by Dr. Cohen. for debridgement. will order cultures (2) Type 2 diabetes mellitus without complications Current Visit: No Status: Acute Plan: will start him on a sliding scale. will need to get his home insulin dosage. Qualifiers: Diabetes mellitus custodial insulin use: with custodial use Qualified Code(s): E11.9 - Type 2 diabetes mellitus without complications; Z79.4 - equipment operator intermodal yard (current) use of insulin (3) Urinary retention Current Visit: No Status: Chronic Plan: continue custodial prajapati care (4) HTN (hypertension) Current Visit: No Status: Chronic Qualifiers: Hypertension type: primary hypertension (5) Severe calorie deficiency Current Visit: No Status: Chronic Plan: will work on placement for the patient Discharge Plan: Home Plan to discharge in: 24 Hours - Code Status/Comfort Care Code Status Assessed: No Physician Review: Patient Assessed, Agree with Above Assessment and Plan Critical Care: No Time Spent Managing PTS Care (In Minutes): 20
[2024-07-31 06:12] LABS: Absolute Eosinophils 0.2 K/uL (0-0.5); Absolute Lymphocytes (CBC) 1.8 K/uL (0.7-4.9); Absolute Monocytes 0.3 K/uL (0.1-1.3); Absolute Neutrophil 4.2 K/uL (1.8-8.0); Basophils % 0.4 % (0-1.3); Eosinophils % 3.1 % (0-4.4); Hematocrit 29.4 % (39.6-49.0); Hemoglobin 8.7 g/dL (13.6-17.9); MCH 22.1 pg (27.0-35.0); MCHC 29.6 g/dL (32.0-36.0); MCV 74.9 fL (80-100); Monocytes % 4.1 % (3.3-12.3); Neutrophils % 65.4 % (41.7-73.7); Platelets 165 thou/uL (152-406); RBC Red Blood Cell Count 3.92 M/uL (4.33-5.43); Red Cell Distribution Width 22.3 % (12.1-15.2)
[2024-07-31 06:25] LABS: ALT/SGPT < 14 U/L (16-61); AST/SGOT 11 U/L (15-37); Albumin 2.2 g/dL (3.4-5.0); Albumin/Globulin Ratio 0.6 (1.1-1.8); Alkaline Phosphatase 74 U/L (45-117); Anion Gap 8.4 mEq/L (5.0-15.0); BUN Blood Urea Nitrogen 7 mg/dL (7-18); Bicarbonate 26 mEq/L (21-32); Bilirubin Total 0.5 mg/dL (0.2-1.0); Globulin 3.6 g/dL (2.3-3.5); Glomerular Filtration Rate 145 ml/min (=/>90); Glucose Level 105 mg/dL (74-106); Potassium 3.4 mEq/L (3.5-5.1); Protein, Total 5.8 g/dL (6.4-8.2); Sodium Level 139 mEq/L (136-145)
[2024-07-31 06:46] LABS: Anisocytosis 2+; Blood Morphology Comment NOTED (NOT SEEN); Platelet Estimate ADEQ; White Blood Cell Scan OK (OK)
[2024-07-31] MEDS: SODIUM HYPOCHLORITE 0.25% 473 ML TOP SCH (09:00)
[2024-07-31] MEDS: COLLAGENASE 30 GM OINTMENT TOP SCH (09:00)
--- NOTE | 2024-07-31 12:38 | P.PN ---
Subjective Date of Service: 07/31/24 Primary Care Provider: Noelle Chief Complaint: sacral pressure ulcer Subjective: Improving Review of Systems 10-point ROS is otherwise unremarkable Physical Examination - Vital Signs Temperature: 98.4 F Blood Pressure: 108/54 Pulse: 76 Respirations: 16 Pulse Ox (%): 96 - Physical Exam General: Alert, In no apparent distress HEENT: Atraumatic, PERRLA, EOMI Neck: Supple, JVD not distended Respiratory: Clear to auscultation bilaterally, Normal air movement Cardiovascular: Regular rate/rhythm, Normal S1 S2 Gastrointestinal: Normal bowel sounds, No tenderness Musculoskeletal: No tenderness Integumentary: No rashes Neurological: Normal speech, Normal tone, Normal affect Lymphatics: No axilla or inguinal lymphadenopathy Assessment And Plan - Current Problems (Diagnosis) (1) Sacral decubitus ulcer, stage III Current Visit: Yes Status: Acute Plan: will have the patient seen by Dr. Cohen. for debridgement. will order cultures 07/31 Patient will need a skin graft per Dr. Bowman. Have discussed it with Dr. Portillo. Will work on a transfer to him on Thursday (2) Urinary retention Current Visit: No Status: Chronic Plan: continue bed bug exterminator prajapati care (3) HTN (hypertension) Current Visit: No Status: Chronic Qualifiers: Hypertension type: primary hypertension (4) Severe calorie deficiency Current Visit: No Status: Chronic Plan: will work on placement for the patient Discharge Plan: Transfer Plan to discharge in: 24 Hours - Code Status/Comfort Care Code Status Assessed: No Physician Review: Patient Assessed, Agree with Above Assessment and Plan Critical Care: No Time Spent Managing PTS Care (In Minutes): 20
[2024-07-31] MEDS: AMPICILLIN/SULBACT 3 GM in NA CHLORIDE 0.9% 100 ML IV SCH (13:49)
[2024-07-31 13:56] VITALS: BMI 35.2
--- NOTE | 2024-07-31 14:08 | P.PN ---
Date of Service: 07/31/24 S: Patient has no particular complaints today. Seems happy, as a nurse looked at the wound and says it appears to be improving. O: Vital signs are stable, dressing is intact A: I have discussed this case with Dr. Drake. At the moment the wound needs some local care, I do not see any areas of necrosis or any parts that need emerg ent surgical intervention. This patient would probably best be served by evaluation from a plastic surgeon as it is going to require some type of flap to close this. P: Continue current therapy
[2024-08-01 05:21] LABS: Absolute Basophils 0.1 K/uL (0-0.5); Absolute Eosinophils 0.2 K/uL (0-0.5); Absolute Lymphocytes (CBC) 1.4 K/uL (0.7-4.9); Absolute Monocytes 0.3 K/uL (0.1-1.3); Absolute Neutrophil 4.4 K/uL (1.8-8.0); Basophils % 0.9 % (0-1.3); Eosinophils % 3.1 % (0-4.4); Hematocrit 26.8 % (39.6-49.0); Hemoglobin 8.3 g/dL (13.6-17.9); Lymphocytes % 21.5 % (15.3-44.8); MCH 22.8 pg (27.0-35.0); MCHC 30.8 g/dL (32.0-36.0); MCV 74.1 fL (80-100); MPV 9.9 fL (7.6-11.3); Monocytes % 4.1 % (3.3-12.3); Neutrophils % 70.4 % (41.7-73.7); Nucleated Red Blood Cells % 0.1 % (0-0); Platelets 171 thou/uL (152-406); RBC Red Blood Cell Count 3.62 M/uL (4.33-5.43)
[2024-08-01 05:22] LABS: Red Cell Distribution Width 21.8 % (12.1-15.2)
[2024-08-01 05:38] LABS: Albumin 2.1 g/dL (3.4-5.0); Albumin/Globulin Ratio 0.6 (1.1-1.8); Alkaline Phosphatase 71 U/L (45-117); Anion Gap 8.2 mEq/L (5.0-15.0); BUN Blood Urea Nitrogen 5 mg/dL (7-18); Bicarbonate 27 mEq/L (21-32); Bilirubin Total 0.5 mg/dL (0.2-1.0); Globulin 3.4 g/dL (2.3-3.5); Glucose Level 109 mg/dL (74-106); Potassium 3.2 mEq/L (3.5-5.1); Protein, Total 5.5 g/dL (6.4-8.2); Sodium Level 140 mEq/L (136-145)
[2024-08-01 05:39] LABS: ALT/SGPT < 14 U/L (16-61); AST/SGOT < 10 U/L (15-37); Glomerular Filtration Rate 145 ml/min (=/>90)
--- NOTE | 2024-08-01 13:21 | P.PN ---
Subjective Date of Service: 08/01/24 Primary Care Provider: Noelle Chief Complaint: sacral pressure ulcer Subjective: No new changes Review of Systems 10-point ROS is otherwise unremarkable Physical Examination - Vital Signs Temperature: 98 F Blood Pressure: 148/72 Pulse: 77 Respirations: 16 Pulse Ox (%): 94 - Physical Exam General: Alert, In no apparent distress HEENT: Atraumatic, PERRLA, EOMI Neck: Supple, JVD not distended Respiratory: Clear to auscultation bilaterally, Normal air movement Cardiovascular: Regular rate/rhythm, Normal S1 S2 Gastrointestinal: Normal bowel sounds, No tenderness Musculoskeletal: No tenderness Integumentary: No rashes Neurological: Normal speech, Normal tone, Normal affect Lymphatics: No axilla or inguinal lymphadenopathy Assessment And Plan - Current Problems (Diagnosis) (1) Sacral decubitus ulcer, stage III Current Visit: Yes Status: Acute Plan: will have the patient seen by Dr. Dudley for debridgement. will order cultures 08/01 Patient will be seen by Dr. Bandar soto. Will see if we need to transfer him or send him to [facility] and follow up for surgery (2) Urinary retention Current Visit: No Status: Chronic Plan: continue intermediate card tender prajapati care (3) HTN (hypertension) Current Visit: No Status: Chronic Qualifiers: Hypertension type: primary hypertension (4) Severe calorie deficiency Current Visit: No Status: Chronic Plan: will work on placement for the patient Discharge Plan: Retirement Plan to discharge in: 24 Hours - Code Status/Comfort Care Code Status Assessed: No Physician Review: Patient Assessed, Agree with Above Assessment and Plan Critical Care: No Time Spent Managing PTS Care (In Minutes): 20
--- NOTE | 2024-08-02 09:27 | P.PN ---
Subjective Date of Service: 08/02/24 Primary Care Provider: Noelle Chief Complaint: sacral pressure ulcer Subjective: No new changes Review of Systems 10-point ROS is otherwise unremarkable Physical Examination - Vital Signs Temperature: 97.9 F Blood Pressure: 137/64 Pulse: 73 Respirations: 18 Pulse Ox (%): 97 - Physical Exam General: Alert, In no apparent distress HEENT: Atraumatic, PERRLA, EOMI Neck: Supple, JVD not distended Respiratory: Clear to auscultation bilaterally, Normal air movement Cardiovascular: Regular rate/rhythm, Normal S1 S2 Gastrointestinal: Normal bowel sounds, No tenderness Musculoskeletal: No tenderness Integumentary: No rashes Neurological: Normal speech, Normal tone, Normal affect Lymphatics: No axilla or inguinal lymphadenopathy Assessment And Plan - Current Problems (Diagnosis) (1) Sacral decubitus ulcer, stage III Current Visit: Yes Status: Acute Plan: will have the patient seen by Dr. Cohen. for debridgement. will order cultures 08/02 Patient was seen with Dr. Portillo this morning. He will need several surgeries for debridgement. Possible involving the bone. Will then need a skin flap to promote healing. He would like to transfer the patient to Surgical hospital in [facility]. Will consult bilingual social worker for authorization of the transfer from Medicare. (2) Urinary retention Current Visit: No Status: Chronic Plan: continue detention prajapati care (3) HTN (hypertension) Current Visit: No Status: Chronic Qualifiers: Hypertension type: primary hypertension (4) Severe calorie deficiency Current Visit: No Status: Chronic Plan: will work on placement for the patient Physician Review: Patient Assessed, Agree with Above Assessment and Plan Critical Care: No Time Spent Managing PTS Care (In Minutes): 30
--- NOTE | 2024-08-03 08:59 | P.PN ---
Subjective Date of Service: 08/03/24 Primary Care Provider: Noelle Chief Complaint: sacral pressure ulcer Subjective: No new changes Review of Systems 10-point ROS is otherwise unremarkable Physical Examination - Vital Signs Temperature: 97.8 F Blood Pressure: 122/61 Pulse: 75 Respirations: 19 Pulse Ox (%): 94 - Physical Exam General: Alert, In no apparent distress HEENT: Atraumatic, PERRLA, EOMI Neck: Supple, JVD not distended Respiratory: Clear to auscultation bilaterally, Normal air movement Cardiovascular: Regular rate/rhythm, Normal S1 S2 Gastrointestinal: Normal bowel sounds, No tenderness Musculoskeletal: No tenderness Integumentary: No rashes Neurological: Normal speech, Normal tone, Normal affect Lymphatics: No axilla or inguinal lymphadenopathy Assessment And Plan - Current Problems (Diagnosis) (1) Sacral decubitus ulcer, stage III Current Visit: Yes Status: Acute Plan: will have the patient seen by Dr. Cohen. for debridgement. will order cultures 08/02 Patient was seen with Dr. Portillo this morning. He will need several surgeries for debridgement. Possible involving the bone. Will then need a skin flap to promote healing. He would like to transfer the patient to Surgical hospital in [facility]. Will consult social work program coordinator for authorization of the transfer from Medicare. (2) Urinary retention Current Visit: No Status: Chronic Plan: continue jail prajapati care (3) HTN (hypertension) Current Visit: No Status: Chronic Qualifiers: Hypertension type: primary hypertension (4) Severe calorie deficiency Current Visit: No Status: Chronic Plan: will work on placement for the patient Discharge Plan: Home Plan to discharge in: Greater than 2 days - Code Status/Comfort Care Code Status Assessed: No Physician Review: Patient Assessed, Agree with Above Assessment and Plan Critical Care: No Time Spent Managing PTS Care (In Minutes): 20
[2024-08-03 10:52] VITALS: O2SAT 92
[2024-08-03] MEDS: Meropenem 1,000 MG in NA CHLORIDE 0.9% 100 ML IV SCH (11:22)
[2024-08-04 06:39] LABS: Absolute Eosinophils 0.2 K/uL (0-0.5); Absolute Lymphocytes (CBC) 1.5 K/uL (0.7-4.9); Absolute Monocytes 0.4 K/uL (0.1-1.3); Absolute Neutrophil 3.8 K/uL (1.8-8.0); Basophils % 0.3 % (0-1.3); Eosinophils % 3.1 % (0-4.4); Hematocrit 30.1 % (39.6-49.0); Hemoglobin 9.3 g/dL (13.6-17.9); Lymphocytes % 25.8 % (15.3-44.8); MCH 22.8 pg (27.0-35.0); MCHC 30.8 g/dL (32.0-36.0); MCV 73.9 fL (80-100); MPV 9.8 fL (7.6-11.3); Monocytes % 6.1 % (3.3-12.3); Neutrophils % 64.7 % (41.7-73.7); Platelets 186 thou/uL (152-406); RBC Red Blood Cell Count 4.07 M/uL (4.33-5.43); Red Cell Distribution Width 21.3 % (12.1-15.2)
[2024-08-04 07:50] LABS: Anisocytosis 1+; Blood Morphology Comment NOTED (NOT SEEN); Hypochromasia 1+; Microcytosis 1+; Ovalocytes SLIGHT; Platelet Estimate ADEQ; White Blood Cell Scan OK (OK)
[2024-08-04 08:24] LABS: ALT/SGPT < 14 U/L (16-61); AST/SGOT 14 U/L (15-37); Albumin 2.2 g/dL (3.4-5.0); Albumin/Globulin Ratio 0.6 (1.1-1.8); Alkaline Phosphatase 70 U/L (45-117); Anion Gap 7.9 mEq/L (5.0-15.0); BUN Blood Urea Nitrogen 3 mg/dL (7-18); Bicarbonate 27 mEq/L (21-32); Bilirubin Total 0.5 mg/dL (0.2-1.0); Globulin 3.5 g/dL (2.3-3.5); Glomerular Filtration Rate 145 ml/min (=/>90); Glucose Level 121 mg/dL (74-106); Potassium 2.9 mEq/L (3.5-5.1); Protein, Total 5.7 g/dL (6.4-8.2); Sodium Level 139 mEq/L (136-145)
--- NOTE | 2024-08-04 09:51 | P.DS ---
Admission Date: 07/29/24 Discharge Date: 08/04/24 Primary Care Provider: Noelle Disposition: [facility]SF[facility] TO [facility] Discharge Condition: GOOD Reason for Admission: sacral pressure ulcer - Problems (1) Sacral decubitus ulcer, stage III Current Visit: Yes Status: Acute (2) Urinary retention Current Visit: No Status: Chronic (3) HTN (hypertension) Current Visit: No Status: Chronic Qualifiers: Hypertension type: primary hypertension (4) Severe calorie deficiency Current Visit: No Status: Chronic Brief History of Present Illness: Patient of mine who was sent to the ER by [facility]. He was previously discharged to Hospice 2 months ago. In the meantime he left hospice. Went to [facility] [place], [place]. Seems his sacral decubitus got infected. Had a coloectomy with colostmy bag to prevent contamination of the wound. He was discharged with a wound vac to be managed by [facility]. However they felt they could not manage this patient with just a wound vac. He is bed bound, has no sergio lift. Planning on sending him [facility]. Were working on [facility]. However today the family called( [facility]). Told them the wound vac had fallen off and the wound was leaking. The home health nurse asked them to go to the ER. The Wound care nurse (Elisabeth) saw him and noted approx 60-70% non viable yellow tissue and would require surgical debridgement before a wound vac could be placed. Hospital Course: Patient was admitted for sacral decubitus and poor social support. He is bed bound and cannot ambulate. He grew ESBL in his wound switched to meropenem. Have cordinated with Dr. Portillo. He will need a few surgeries and a wound flap to heal appropriately. Will transfer him to the [facility]. Thank you for allowing me to take part in his care. Vital Signs/Physical Exam: Temp Pulse Resp BP Pulse Ox 97.8 F 75 16 116/70 95 08/04/24 08:00 08/04/24 08:00 08/04/24 08:00 08/04/24 08:00 08/04/24 08:00 General: Alert, In no apparent distress HEENT: Atraumatic, PERRLA, EOMI Neck: Supple, JVD not distended Respiratory: Clear to auscultation bilaterally, Normal air movement Cardiovascular: Regular rate/rhythm, Normal S1 S2 Gastrointestinal: Normal bowel sounds, No tenderness Musculoskeletal: No tenderness Integumentary: No rashes Neurological: Normal speech, Normal tone, Normal affect Lymphatics: No axilla or inguinal lymphadenopathy Laboratory Data at Discharge: WBC 5.90 thou/uL (4.3-10.9) 08/04/24 06:12 Hgb 9.3 g/dL (13.6-17.9) L 08/04/24 06:12 Hct 30.1 % (39.6-49.0) L 08/04/24 06:12 Plt Count 186 thou/uL (152-406) 08/04/24 06:12 PT 15.3 SECONDS (9.4-12.5) H 07/29/24 13:21 INR 1.38 07/29/24 13:21 Sodium 139 mEq/L (136-145) 08/04/24 07:42 Potassium 2.9 mEq/L (3.5-5.1) L 08/04/24 07:42 BUN 3 mg/dL (7-18) L 08/04/24 07:42 Creatinine < 0.25 mg/dL (0.70-1.30) L 08/04/24 07:42 Glucose 121 mg/dL (74-106) H 08/04/24 07:42 Magnesium 1.8 mg/dL (1.6-2.4) 07/30/24 05:43 Total Bilirubin 0.5 mg/dL (0.2-1.0) 08/04/24 07:42 AST 14 U/L (15-37) L 08/04/24 07:42 ALT < 14 U/L (16-61) L 08/04/24 07:42 Alkaline Phosphatase 70 U/L (45-117) 08/04/24 07:42 Home Medications: Amoxicillin/Potassium Clav [Amox-Clav 875-125 mg Tablet] 1 tab PO BID 07/30/24 Doxycycline Hyclate 1 tab PO Q12H 07/30/24 Hydrocodone APAP 325 [[place] [id number]*] 1 tab PO Q6HP PRN 07/30/24 Meropenem-0.9% Sodium Chloride [Meropenem-0.9% NaCl 1 Gram/50] 1 gm IV Q12HR #500 ml 08/04/24 New Medications: Meropenem-0.9% Sodium Chloride [Meropenem-0.9% NaCl 1 Gram/50] 1 gm IV Q12HR #500 ml Diet: Regular Activity: Ad sujatha Followup: Zhou Drake MD [Primary Care Provider] - 1-2 Weeks Time spent managing pt's care (in minutes): 40
[2024-08-04 12:37] VITALS: BP 124/73; TEMP 98.3
--- NOTE | 2024-08-04 14:05 | P.PN ---
Date of Service: 08/04/24 Dr Drake was able to contact a plastic surgeon to help with this patient care. This will be to [place]'s advantage. He is being transferred today. Thank you for the consult on this patient, and strong work on enabling the transfer.
[2024-08-04] MEDS: HYDROMORPHONE HCL 2 MG/ML inj IV ONE (14:20)
[2024-08-04] MEDS: POTASSIUM 25 MEQ EFFERV TAB PO ONE (14:20)
== END 2024-08-04 15:28 | disposition short-term general hospital (02) | DRG 592 ==
LOC: SUPCPDRO 10:21 → ER 10:21 → ERHOLD 12:45 → 2ND 14:00
PROVIDERS: ADMIT Internal Medicine; ATTEND Internal Medicine
DX: L89.153 Pressure ulcer of sacral region, stage 3 (principal); E43 Unspecified severe protein-calorie malnutrition; Z16.12 Extended spectrum beta lactamase (ESBL) resistance; I10 Essential (primary) hypertension; E11.40 Type 2 diabetes mellitus with diabetic neuropathy, unspecified; E66.01 Morbid (severe) obesity due to excess calories; R33.9 Retention of urine, unspecified; Z93.3 Colostomy status; Z79.4 Long term (current) use of insulin; Z74.01 Bed confinement status; Z68.35 Body mass index [BMI] 35.0-35.9, adult; Z86.73 Personal history of transient ischemic attack (TIA), and cerebral infarction without residual deficits; Z89.611 Acquired absence of right leg above knee
CPT/HCPCS: 36415; 72193; 80048; 80053; 82947; 83735; 84134; 85025; 85610; 87040; 87070; 87077; 87186; 87205; 96365; 97110; 97161; 99285; J0295; J1170; J1650; J2185; J3590; J7030; J7050; Q9967

== ENCOUNTER 2025-02-22 03:40 | Inpatient (IN) | payer OTHER ==
--- OUTSIDE RECORDS SUMMARY | 2025-02-22 03:46 | XMS REPORT | Continuity of Care Document ---
Author Name Unknown Address [address] [place] [address] [facility] Address [address] [place] [address] Care Team Providers Care Social Economist Name Role Phone Logan Lance MD Primary Care Physician Logan Lance MD Attending Clinician + [phone] NEDRA MORALES Attending Clinician Unavaila CHEMO Mcfadden Attending Clinician Unavailable ADA ROBBINS Attending Clinician Unavail able ADA ROBBINS Attending Clinician Unavail able Tania Zimmerman Yijia Attending Clinician Unavailab May Carrasquillo Anavella Attending Cli carlo Unavailable JEANNIE MILLER Attending Clinician Unavaila JULISA Maguire Attending Clinician Unavailabl e Doctor Unassigned, [place] Attending Clinician U Veronica Harris PTA Attending Clinician Unavail able Julisa Duran MD Attending Clinician [phone] Logan Lance MD Attending Clinician [phone] Donaldo Tran PT, Niyah Attending Clinician Un available LOGAN LANCE Attending Clinician KATE Sandoval Attending Clinician Unavailable Anna MARTEL, Nicolasa Ybarra Attending Clinician Unavailab evelina BRUNNER, ERICKA Admitting Clinician Unavailable Tania Zimmerman Yijia Admitting Clinician Unavailab evelina Sykes, Marianne, Anav Admitting Clinician U navailable Payers Payer Name Policy Type Policy Number Effective Date Expirati on Date Source MEDICARE PART A \T\ B [id number] 2017 00:00:00 MEDICARE PART A AND B [id number] 2017 00:00:00 [facility] MCR [id number] Problems Condition Name Condition Details Condition Category Status Onset Date Resolution Date Last Treatment Date Treating Clinician Comments Source Chronic edema Chronic edema Disease Active 2019-10 00:00: 00 [facility] Hx of AKA (above knee amputation ), 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 ), right Disease Active 2019-10 00:00: 00 [facility] Balanitis Balanitis Problem Comm on [facility] [id number] 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 [facility] [id number] Acquired phimosis of penis Problem [facility] Leukoplaki a of penis BXO (balanitis xerotica obliterans ) Problem Common [facility] Allergies, Adverse Reactions, Alerts Allergy Name Allergy Type Status Severity Reaction(s) Onset Date Inactive Date Treating Clinician Comments Source NO KNOWN ALLERGIE S Drug Class Active [facility] Social History Social Habit Start Date Stop Date Quantity Comments Source History of Tobacco Use [facility] Sex Assigned At [facility] Sexual orientation U [facility] Alcohol intake 2020-06-25 00:00:00 2020-06-25 00:00:00 Ex-drinker (finding) [facility] Alcoholic beverage intake 2020-06-25 00:00:00 2020-06-25 00:00:00 Ex-drinker (finding) [facility] History of Social function 2020-03-20 00:00:00 2020-03-20 00:00:00 [facility] Tobacco use and exposure 2019-11-25 00:00:00 2019-11-25 00:00:00 Smokeless tobacco non-user [facility] Smoking Status Start Date Stop Date Source Unknown if ever smoked [facility] Former Smoker 2024-05-11 00:00:00 2024-05-11 00:00:00 [facility] Never smoked tobacco [facility] Medications Ordered Medication Name Filled Medication Name Start Date Stop Date Current Medication? Ordering Clinician Indication Dosage Frequency Signature (SIG) Comments Components Source GLIPIZIDE 10 mg tablet 2020-10 00:00: 00 Yes [id number] TAKE ONE TABLET BY MOUTH DAILY [facility] GLIPIZIDE 10 mg tablet 2020-10 0 00:00: 00 Yes [id number] TAKE ONE TABLET BY MOUTH DAILY [facility] PIOGLITAZON E 30 mg tablet 07-15 00:00: 00 Yes TAKE ONE TABLET BY MOUTH DAILY [facility] TRIAMTERENE -HYDROCHLOR OTHIAZIDE 37.5-25 mg per capsule 07-15 00:00: 00 Yes [id number] TAKE ONE CAPSULE BY MOUTH EVERY MORNING [facility] BUMETANIDE 1 mg tablet 07-15 00:00: 00 Yes [id number] TAKE ONE TABLET BY MOUTH DAILY [facility] metFORMIN 500 mg tablet 06-25 00:00: 00 Yes [id number] TAKE ONE TABLET BY MOUTH TWICE A DAY WITH MEALS [facility] ATORVASTATI N 40 mg tablet 06-13 00:00: 00 Yes TAKE ONE TABLET BY MOUTH AT BEDTIME [facility] GLIPIZIDE 10 mg tablet 06-10 00:00: 00 08-13 00:00 :00 No [id number] TAKE ONE TABLET BY MOUTH DAILY [facility] BUMETANIDE 1 mg tablet 05-21 00:00: 00 Yes [id number] TAKE ONE TABLET BY MOUTH DAILY [facility] TRIAMTERENE -HYDROCHLOR OTHIAZIDE 37.5-25 mg per capsule 05-21 00:00: 00 Yes [id number] TAKE ONE CAPSULE BY MOUTH EVERY MORNING [facility] KCL 10 mEq tablet 05-15 00:00: 00 Yes [id number] TAKE ONE TABLET BY MOUTH DAILY [facility] metFORMIN 500 mg tablet 04-15 00:00: 00 06-25 00:00 :00 No [id number] TAKE ONE TABLET BY MOUTH TWICE A DAY WITH MEALS [facility] PIOGLITAZON E 30 mg tablet 6 00:00: 00 Yes TAKE ONE TABLET BY MOUTH DAILY [facility] exenatide microsphere s (BYDUREON) 2 mg/0.65 mL injection - 00:00: 00 Yes [id number] 2mg inject 0.65 mL under the skin weekly. [facility] metFORMIN 500 mg tablet 3-30 00:00: 00 04-15 00:00 :00 No [id number] TAKE ONE TABLET BY MOUTH TWICE A DAY WITH MEALS [facility] BYDUREON 2 mg/0.65 mL injection - 00:00: 00 02-13 00:00 :00 No [facility] traMADoL 50 mg tablet -19 00:00: 00 Yes [id number] 50mg Take 1 tablet by mouth every 6 (six) hours as needed for Pain (scale 4-6). Indication s: acute pain [facility] exenatide microsphere s 2 mg injection 3-19 00:00: 00 Yes [id number] 2mg inject 2 mg under the skin every 7 (seven) days. [facility] PIOGLITAZON E 30 mg tablet 3-18 00:00: 00 04-10 00:00 :00 No TAKE ONE TABLET BY MOUTH DAILY [facility] ATORVASTATI N 40 mg tablet 3-13 00:00: 04-01 00:00 :00 No TAKE ONE TABLET BY MOUTH AT BEDTIME [facility] triamterene -hydrochlor othiazide 37.5-25 mg per capsule 12-14 00:00: 00 03-18 00:00 :00 No TAKE ONE CAPSULE BY MOUTH EVERY MORNING [facility] BUMETANIDE 1 mg tablet 2019-10 0 00:00: 02-18 00:00 :00 No [id number] TAKE ONE TABLET BY MOUTH DAILY [facility] KCL 10 mEq tablet 2019-10 0 00:00: 02-18 00:00 :00 No [id number] TAKE ONE TABLET BY MOUTH DAILY [facility] glipiZIDE 10 mg tablet 06-06 00:00: 00 06-10 00:00 :00 No [id number] 10mg Take 1 tablet by mouth daily. [facility] traMADol 50 mg tablet 12-21 00:00: 00 Yes [id number] 50mg Take 1 tablet by mouth every 6 (six) hours as needed (pain). [facility] exenatide microsphere s 2 mg injection 12-21 00:00: 00 Yes [id number] 2mg inject 2 mg under the skin every 7 (seven) days. [facility] metFORMIN 500 mg tablet 11-25 20:46: 55 Yes 500mg Take 500 mg by mouth 2 (two) times daily with meals. [facility] atorvastati n 40 mg tablet 11-25 20:46: 55 Yes 40mg Take 40 mg by mouth at bedtime. [facility] pioglitazon e 30 mg tablet 11-25 20:46: 55 Yes 30mg Take 30 mg by mouth daily. [facility] glipiZIDE 10 mg tablet 11-25 20:46: 55 Yes 10mg Take 10 mg by mouth daily. [facility] amoxicillin -clavulanat e (AUGMENTIN) 875-125 mg per tablet 11-25 00:00: 00 12-21 00:00 :00 No [id number] 1{tbl} Take 1 tablet by mouth 2 (two) times daily. [facility] sulfamethox azole-trime thoprim 800-160 mg per tablet 11-25 00:00: 00 12-21 00:00 :00 No [id number] 1{tbl} Take 1 tablet by mouth 2 (two) times daily. [facility] traMADol 50 mg tablet 11-25 00:00: 12-21 00:00 :00 No [id number] 50mg Take 1 tablet by mouth every 6 (six) hours as needed (pain). [facility] No known medications No Un senthil [facility] Furosemide 40 MG Furosemide 40 MG No [...] height 2024-02-17 13:30:00 72 [in_i] Commo n [facility] weight 2024-02-17 13:30:00 340.0 [lb_av] Co mmon [facility] temperature 2024-02-17 13:30:00 98.5 [degF] Com mon [facility] bmi 2024-02-17 13:30:00 46.11 kg/m2 Comm on [facility] oximetry 2024-02-17 13:30:00 95 % Commo n [facility] respiratory rate 2024-02-17 13:30:00 16 /min Common [facility] blood pressure systolic 2024-02-17 13:30:00 173 mm[Hg] [facility] blood pressure diastolic 2024-02-17 13:30:00 83 mm[Hg] [facility] Systolic blood pressure 2019-12-21 17:49:00 110 mm[Hg] [facility] Diastolic blood pressure 2019-12-21 17:49:00 41 mm[Hg] [facility] Heart rate 2019-12-21 17:49:00 79 /min [facility] Body temperature 2019-12-21 17:49:00 36.78 Yesenia [facility] Respiratory rate 2019-12-21 17:49:00 18 /min [facility] Procedures Procedure Date / Time Performed Performing Clinician Source REFERRAL- REQUEST/RESPONSE 2023-04-20 05:01:00 Doctor Unassigned, [place] [facility] ASSIGNMENT OF BENEFITS 2022-03-26 12:52:53 Docto r Unassigned, [place] [facility] REFERRAL- REQUEST/RESPONSE 2022-03-12 05:01:00 Doctor Unassigned, [place] [facility] PATIENT QUESTIONNAIRE 2019-11-22 06:01:00 Doctor Unassigned, [place] [facility] REFERRAL- REQUEST/RESPONSE 2019-11-11 06:01:00 Doctor Unassigned, [place] [facility] Encounters Start Date/Time End Date/Time Encounter Type Admission Type Attending Clinicians Care Facility Care Department Encounter ID Source 2024-04-13 11:58:00 Outpatient [facility] [id number] [facility] 2024-02-17 12:35:00 Outpatient STLMLC [facility] [id number] [facility] 2021-08-23 14:59:58 Emergency [facility] [id number] [facility] 2019-11-28 08:29:26 Outpatient [facility] [id number] [facility] 2021-02-13 00:00:00 2024-12-10 02:56:11 Orders Only Logan Lance [facility] OFF[facility] BUILDING ONE 1.2.840.114 350.1.13.10 4.2.7.2.686 [id number] [facility] 2024-07-20 22:26:00 2024-07-26 17:17:00 Inpatient NEDRA [facility] [id number] [facility] 2024-07-25 07:00:00 2024-07-25 07:00:00 Outpatient CHEMO NORMAN [facility] [id number] [facility] 2024-07-21 07:00:00 2024-07-21 07:00:00 Outpatient CHEMO NORMAN [facility] [id number] [facility] 2024-05-11 00:00:00 2024-05-11 00:00:00 ([place]) Nurse Visit STLMLC STLC [id number] [facility] 2024-04-08 11:00:00 2024-04-08 11:00:00 Outpatient ADA AGUIRRE HOWARD [facility] [id number] [facility] 2024-04-06 00:00:00 2024-04-06 00:00:00 (TEL) STLMLC STLMLC [id number] [facility] 2024-03-07 00:00:00 2024-03-07 00:00:00 ([place]) Nurse Visit STLMLC STLMLC [id number] [facility] 2024-02-29 00:00:00 2024-02-29 00:00:00 (TEL) STLMLC STLMLC [id number] [facility] 2024-02-23 00:00:00 2024-02-23 00:00:00 ([place]) Nurse Visit STLMLC STLMLC [id number] [facility] 2024-02-17 00:00:00 2024-02-17 00:00:00 OFFICE VISIT ESTAB PT LEVEL 3 STLMLC STLMLC [id number] [facility] 2024-01-13 18:01:00 2024-01-30 11:57:00 Inpatient 3 Tania Zimmerman ENCPL SCN [id number] [facility] 2023-11-07 22:28:00 2023-11-23 15:20:00 [facility] May escoto ENCPL ELUALIO [id number] [facility] 2023-06-05 08:45:00 2023-06-05 08:45:00 Outpatient R JULISA DURAN [facility] [id number] [facility] 2023-04-20 00:00:00 2023-04-20 00:00:00 Orders Only Doctor Unassigned, [place] [facility] 1.84.114 350.1.13.10 4.2.7.2.686 [id number] [facility] 2023-04-14 00:00:00 2023-04-14 00:00:00 Telephone Veronica Truong [facility] 1.840.114 350.1.13.10 4.2.7.2.686 [id number] [facility] 2022-08-21 08:00:00 2022-08-21 09:19:07 Outpatient R JULISA DURAN [facility] [id number] [facility] 2022-08-21 08:00:00 2022-08-21 09:19:07 Ancillary Visit Veronica Truong Craig L [facility] 1.2.840.114 350.1.13.10 4.2.7.2.686 [id number] [facility] 2022-08-14 08:00:00 2022-08-14 09:36:02 Ancillary Visit Veronica Truong Craig L [facility] 1.840.114 350.1.13.10 4.2.7.2.686 [id number] [facility] 2022-08-07 08:00:00 2022-08-07 09:00:00 Ancillary Visit Alexi [facility]isa [facility] 1.2.840.114 350.1.13.10 4.2.7.2.686 [id number] [facility] 2022-07-17 08:00:00 2022-07-17 10:33:07 Ancillary Visit Alexi Julisa Gomez [facility] 1.2.840.114 350.1.13.10 4.2.7.2.686 [id number] [facility] 2022-07-11 08:00:00 2022-07-11 09:09:53 Ancillary Visit Veronica Truong Craig L [facility] BUILDING 1.2.840.114 350.1.13.10 4.2.7.2.686 [id number] [facility] 2022-07-09 08:00:00 2022-07-09 09:22:42 Ancillary Visit Veronica Truong Craig L [facility] 1.2.840.114 350.1.13.10 4.2.7.2.686 [id number] [facility] 2022-07-03 08:00:00 2022-07-03 09:28:51 Ancillary Visit Veronica Truong Craig L [facility] BUILDING 1.2.840.114 350.1.13.10 4.2.7.2.686 [id number] [facility] 2022-07-01 08:00:00 2022-07-01 09:42:36 Outpatient R JULISA DURAN [facility] [id number] [facility] 2022-07-01 08:00:00 2022-07-01 09:42:36 Ancillary Visit Veronica [facility] 1.2.840.114 350.1.13.10 4.2.7.2.686 [id number] [facility] 2022-06-25 08:00:00 2022-06-25 10:05:28 Ancillary Visit Veronica Tru[facility] 1.2.840.114 350.1.13.10 4.2.7.2.686 [id number] [facility] 2022-06-20 08:00:00 2022-06-20 09:40:30 Ancillary Visit Veronica Truong DuranJulisa [facility] NAL BUILDING 1.2.840.114 350.1.13.10 4.2.7.2.686 [id number] [facility] 2022-06-18 08:00:00 2022-06-18 09:36:15 Ancillary Visit Veronica Truong Mary Julisa Jackson [facility] BUILDING 1.2.840.114 350.1.13.10 4.2.7.2.686 [id number] [facility] 2022-06-13 08:00:00 2022-06-13 08:45:00 Ancillary Visit Veronica Truong Julisa Guzmán [facility] NAL BUILDING 1.2.840.114 350.1.13.10 4.2.7.2.686 [id number] [facility] 2022-06-10 08:45:00 2022-06-10 09:30:00 Ancillary Visit Alexi Julisa Gomez [facility] BUILDING 1.2.840.114 350.1.13.10 4.2.7.2.686 [id number] [facility] 2022-06-06 08:00:00 2022-06-06 10:23:06 Ancillary Visit Veronica Truong [facility] BUILDING 1.2.840.114 350.1.13.10 4.2.7.2.686 [id number] [facility] 2022-06-04 08:00:00 2022-06-04 09:29:06 Ancillary Visit Veronica Truong Craig L [facility] BUILDING 1.2.840.114 350.1.13.10 4.2.7.2.686 [id number] [facility] 2022-05-30 08:00:00 2022-05-30 10:18:46 Ancillary Visit Veronica Truong Craig L [facility] BUILDING 1.2.840.114 350.1.13.10 4.2.7.2.686 [id number] [facility] 2022-05-28 08:00:00 2022-05-28 10:30:25 Outpatient R JULISA DURAN [facility] [id number] [facility] 2022-05-28 08:00:00 2022-05-28 08:45:00 Ancillary Visit Veronica Truong Craig L [facility] BUILDING 1.2.840.114 350.1.13.10 4.2.7.2.686 [id number] [facility] 2022-05-23 08:00:00 2022-05-23 09:06:40 Ancillary Visit Veronica Truong Craig L [facility] BUILDING 1.2.840.114 350.1.13.10 4.2.7.2.686 [id number] [facility] 2022-05-09 09:30:00 2022-05-09 10:33:51 Ancillary Visit Veronica Truong Craig L [facility] BUILDING 1.2.840.114 350.1.13.10 4.2.7.2.686 [id number] [facility] 2022-05-07 10:15:00 2022-05-07 11:02:32 Ancillary Visit Veronica Truong Craig L [facility] BUILDING 1.2.840.114 350.1.13.10 4.2.7.2.686 [id number] [facility] 2022-05-05 00:00:00 2022-05-05 00:00:00 Logan Bergman [facility] BUILDING 1.2.840.114 350.1.13.10 4.2.7.2.686 [id number] [facility] 2022-05-05 00:00:00 2022-05-05 00:00:00 Logan Bergman [facility] BUILDING 1.2.840.114 350.1.13.10 4.2.7.2.686 [id number] [facility] 2022-04-30 08:45:00 2022-04-30 08:45:00 Outpatient R JULISA DURAN [facility] [id number] [facility] 2022-04-30 00:00:00 2022-04-30 00:00:00 Case Management Veronica Truong [facility] BUILDING 1.2.840.114 350.1.13.10 4.2.7.2.686 [id number] [facility] 2022-04-24 14:30:00 2022-04-24 15:42:45 Ancillary Visit Veronica Truong Julisa Manuel [facility] BUILDING 1.2.840.114 350.1.13.10 4.2.7.2.686 [id number] [facility] 2022-04-17 08:00:00 2022-04-17 09:00:00 Ancillary Visit Veronica Truong Craig L [facility] BUILDING 1.2.840.114 350.1.13.10 4.2.7.2.686 [id number] [facility] 2022-04-11 08:00:00 2022-04-11 09:00:00 Ancillary Visit Veronica TruongonaldJulisa [facility] BUILDING 1.2.840.114 350.1.13.10 4.2.7.2.686 [id number] [facility] 2022-04-09 08:00:00 2022-04-09 09:00:00 Ancillary Visit Veronica Truong Julisa Guzmán [facility] BUILDING 1.2.840.114 350.1.13.10 4.2.7.2.686 [id number] [facility] 2022-04-04 08:00:00 2022-04-04 09:00:00 Ancillary Visit Alexi Julisa Gomez [facility] BUILDING 1.2.840.114 350.1.13.10 4.2.7.2.686 [id number] [facility] 2022-04-01 08:00:00 2022-04-01 09:00:00 Ancillary Visit Beverly TruongJulisa Infante [facility] BUILDING 1.2.840.114 350.1.13.10 4.2.7.2.686 [id number] [facility] 2022-03-26 08:00:00 2022-03-26 10:37:03 Outpatient R JULISA DURAN [facility] [id number] [facility] 2022-03-26 08:00:00 2022-03-26 10:37:03 Ancillary Visit Niyah Mckeon Craig L [facility] 1.2.840.114 350.1.13.10 4.2.7.2.686 [id number] [facility] 2022-03-26 00:00:00 2022-03-26 00:00:00 Orders Only Doctor Unassigned, [place] [facility] 1.840.114 350.1.13.10 4.2.7.2.686 [id number] [facility] 2022-03-12 00:00:00 2022-03-12 00:00:00 Orders Only Doctor Unassigned, [place] [facility] 1.840.114 350.1.13.10 4.2.7.2.686 [id number] [facility] 2022-02-10 00:00:00 2022-02-10 00:00:00 Logan Bergman yoselin [facility] 1..840.114 350.1.13.10 4.2.7.2.686 [id number] [facility] 2021-11-29 00:00:00 2021-11-29 00:00:00 Logan Bergman yoselin [facility] 1.2.840.114 350.1.13.10 4.2.7.2.686 [id number] [facility] 2021-09-12 00:00:00 2021-09-12 00:00:00 Logan Bergman [facility] 1.2.840.114 350.1.13.10 4.2.7.2.686 [id number] [facility] 2021-08-19 00:00:00 2021-08-19 00:00:00 Logan Bergman [facility] nal Building 1.2.840.114 350.1.13.10 4.2.7.2.686 [id number] [facility] 2021-08-13 00:00:00 2021-08-13 00:00:00 Vita Lance [facility] Building 1.2.840.114 350.1.13.10 4.2.7.2.686 [id number] [facility] 2021-07-13 00:00:00 2021-07-13 00:00:00 Logan Bergman [facility] Building 1.2.840.114 350.1.13.10 4.2.7.2.686 [id number] [facility] 2021-06-24 00:00:00 2021-06-24 00:00:00 [facility] 1.2.840.114 350.1.13.10 4.2.7.2.686 [id number] [facility] 2020-09-05 10:15:00 2020-09-05 10:15:00 Outpatient LOGAN HESTER [facility] [id number] [facility] 2020-06-25 11:40:00 2020-06-25 11:40:00 Outpatient KATE GOMEZ [facility] [id number] [facility] 2020-06-06 15:45:00 2020-06-06 15:45:00 Outpatient LOGAN HESTER [facility] [id number] [facility] 2020-05-09 16:15:00 2020-05-09 16:15:00 Outpatient LOGAN HESTER [facility] [id number] [facility] 2020-03-20 09:15:00 2020-03-20 09:15:00 Outpatient LOGAN HESTER [facility] [id number] [facility] 2020-01-25 11:00:00 2020-01-25 11:00:00 Outpatient Arleth JULISA DURAN [facility] [id number] [facility] 2019-12-29 09:20:00 2019-12-29 09:20:00 Outpatient JULISA AREVALO [facility] [id number] [facility] 2019-12-21 11:42:25 2019-12-21 11:57:25 [facility] 1.840.114 350.1.13.10 4.2.7.2.686 [id number] [facility] 2019-12-21 11:30:00 2019-12-21 11:30:00 Outpatient LOGAN HESTER [facility] [id number] [facility] 2019-12-20 09:00:00 2019-12-20 09:00:00 Outpatient R [facility] [id number] [facility] 2019-12-16 10:07:00 2019-12-16 11:07:00 Ancillary Visit Veronica Truong Craig L [facility] Building 1..840.114 350.1.13.10 4.2.7.2.686 [id number] [facility] 2019-12-14 09:52:14 2019-12-14 10:52:14 Ancillary Visit Veronica Truong Craig L [facility] Building 1..840.114 350.1.13.10 4.2.7.2.686 [id number] [facility] 2019-12-09 08:52:58 2019-12-09 10:16:26 Ancillary [facility] 1.2.840.114 350.1.13.10 4.2.7.2.686 [id number] [facility] 2019-12-07 08:58:57 2019-12-07 09:58:57 Ancillary Visit [facility] 1.2.840.114 350.1.13.10 4.2.7.2.686 [id number] [facility] 2019-12-02 08:47:35 2019-12-02 09:47:35 Ancillary Visit Veronica Truong Craig L [facility] nal Building 1.2.840.114 350.1.13.10 4.2.7.2.686 [id number] [facility] 2019-11-18 09:11:00 2019-11-30 12:53:31 Ancillary Visit Nicolasa Castillo Craig L [facility] nal Building [id number] 350.1.13.10 4.2.7.2.686 [id number] [facility] 2019-11-30 08:42:50 2019-11-30 09:42:50 Ancillary Visit Veronica Truong Craig L [facility] nal Building 1.2.840.114 350.1.13.10 4.2.7.2.686 [id number] [facility] 2019-11-24 08:48:05 2019-11-24 15:06:52 Ancillary Visit Veronica Truong Craig L [facility] nal Building 1.2.840.114 350.1.13.10 4.2.7.2.686 [id number] [facility] 2019-11-22 08:37:05 2019-11-22 11:36:52 Ancillary Visit Veronica Truong Craig L [facility] 1.2.840.114 350.1.13.10 4.2.7.2.686 [id number] [facility] 2019-11-22 00:00:00 2019-11-22 00:00:00 Orders Only Doctor Unassigned, [place] [facility] 1.2840.114 350.1.13.10 4.2.7.2.686 [id number] [facility] 2019-11-11 00:00:00 2019-11-11 00:00:00 Orders Only Doctor Unassigned, [place] [facility] 1.2840.114 350.1.13.10 4.2.7.2.686 [id number] [facility] 2019-10-30 03:07:00 2019-10-30 15:15:00 Inpatient [facility] [address] [facility] Results Test Description Test Time Test Comments Results Result Co mments Source [facility]2024-01-29 11:38:00* Test Item Value Reference Range Interpretation Comme nts WHITE BLOOD CELL COUNT (test code = 41532018) 5.8 Thousand/uL 3.8-10.8 N RED BLOOD CELL COUNT (test code = 46410479) 4.66 Million/uL 4.20-5.80 N HEMOGLOBIN (test code = 07585868) 11.5 g/dL 13.2-17.1 L HEMATOCRIT (test code = 41458656) 38.1 % 38.5-50.0 L MCV (test code = 75045323) 81.8 fL 80.0-100.0 N MCH (test code = 74534962) 24.7 pg 27.0-33.0 L MCHC (test code = 84586221) 30.2 g/dL 32.0-36.0 L RDW (test code = 88944251) 15.4 % 11.0-15.0 H PLATELET COUNT (test code = 54759998) 141 Thousand/uL 140-400 N MPV (test code = 88755193) fL 7.5-12.5 N Due to platelet or RBC variability in size or shapethe result cannot be reported accurately. ABSOLUTE NEUTROPHILS (test code = 24603512) 3695 cells/uL 2841-6339 N ABSOLUTE LYMPHOCYTES (test code = 68358272) 1630 cells/uL 850-3900 N ABSOLUTE MONOCYTES (test code = 66108056) 220 cells/uL 200-950 N ABSOLUTE EOSINOPHILS (test code = 75653838) 226 cells/uL 15-500 N ABSOLUTE BASOPHILS (test code = 73285140) 29 cells/uL 0-200 N NEUTROPHILS (test code = 61163475) 63.7 % N LYMPHOCYTES (test code = 42058858) 28.1 % N MONOCYTES (test code = 39515962) 3.8 % N EOSINOPHILS (test code = 18688911) 3.9 % N BASOPHILS (test code = 74529932) 0.5 % N [facility] MET [id number] 13:55:00* Test Item Value Reference Range Interpretation Comme nts GLUCOSE (test code = 29281536) 147 mg/dL 65-99 H Fasting referenc e interval For someone without known diabetes, a glucosevalue >125 mg/dL indicates that they may havediabetes and this should be confirmed with afollow-up test. UREA NITROGEN (BUN) (test code = 50885786) 12 mg/dL 7-25 N CREATININE (test code = 20571162) 0.46 mg/dL 0.70-1.30 L EGFR (test code = 86345789) 121 mL/min/1.73m2 >=60 N BUN/CREATININE RATIO (test code = 28479537) 26 (calc) 6-22 H SODIUM (test code = 61439883) 136 mmol/L 135-146 N POTASSIUM (test code = 62658530) 3.9 mmol/L 3.5-5.3 N CHLORIDE (test code = 41587750) 99 mmol/L 98-110 N CARBON DIOXIDE (test code = 18693627) 28 mmol/L 20-32 N CALCIUM (test code = 08858609) 8.9 mg/dL 8.6-10.3 N [facility] ([facility]FF/PLT)2024-01-19 13:55:00* Test Item Value Reference Range Interpretation Comme nts WHITE BLOOD CELL COUNT (test code = 60204738) 6.8 Thousand/uL 3.8-10.8 N RED BLOOD CELL COUNT (test code = 29972810) 4.73 Million/uL 4.20-5.80 N HEMOGLOBIN (test code = 28555396) 11.7 g/dL 13.2-17.1 L HEMATOCRIT (test code = 20599937) 38.0 % 38.5-50.0 L MCV (test code = 00861623) 80.3 fL 80.0-100.0 N MCH (test code = 97157414) 24.7 pg 27.0-33.0 L MCHC (test code = 87313617) 30.8 g/dL 32.0-36.0 L RDW (test code = 06516913) 15.3 % 11.0-15.0 H PLATELET COUNT (test code = 76195892) 141 Thousand/uL 140-400 N MPV (test code = 17856144) fL 7.5-12.5 N Due to platelet or RBC variability in size or shapethe result cannot be reported accurately. ABSOLUTE NEUTROPHILS (test code = 06476477) 5005 cells/uL 1069-9266 N ABSOLUTE LYMPHOCYTES (test code = 89193241) 1251 cells/uL 850-3900 N ABSOLUTE MONOCYTES (test code = 21041108) 272 cells/uL 200-950 N ABSOLUTE EOSINOPHILS (test code = 63320624) 252 cells/uL 15-500 N ABSOLUTE BASOPHILS (test code = 57767178) 20 cells/uL 0-200 N NEUTROPHILS (test code = 99249288) 73.6 % N LYMPHOCYTES (test code = 33508156) 18.4 % N MONOCYTES (test code = 94954387) 4.0 % N EOSINOPHILS (test code = 42404953) 3.7 % N BASOPHILS (test code = 55805197) 0.3 % N [facility] [id number] 18:17:00* Test Item Value Reference Range Interpretation Comments HEMOGLOBIN A1c (test code = 45361853) 7.0 % of total Hgb <5.7 H For someone without known diabetes, a hemoglobin L6rwdskq of 6.5% or greater indicates that they [...] 09/07/23, a change in test platforms from [employer] to the Kathy viviane c503 may have [id number] results compared to historical results.[facility], the Kathy platform relative to the [employer] had an average increase in HbA1c value of< or = 0.3%. This difference is within accepted variability established by the National GlycohemoglobinStandardization Program. Note that not all individualswill have had a shift in their results and directcomparisons between historical and current results fortesting conducted on different platforms is notrecommended. [facility] META [id number] 15:13:00* Test Item Value Reference Range Interpretation Comme nts GLUCOSE (test code = 56330553) 132 mg/dL 65-99 H Fasting referenc e interval For someone without known diabetes, a glucosevalue >125 mg/dL indicates that they may havediabetes and this should be confirmed with afollow-up test. UREA NITROGEN (BUN) (test code = 22677269) 9 mg/dL 7-25 N CREATININE (test code = 23331419) 0.47 mg/dL 0.70-1.30 L EGFR (test code = 55685973) 120 mL/min/1.73m2 >=60 N BUN/CREATININE RATIO (test code = 45973411) 19 (calc) 6-22 N SODIUM (test code = 54060453) 140 mmol/L 135-146 N POTASSIUM (test code = 28066071) 4.1 mmol/L 3.5-5.3 N CHLORIDE (test code = 77686430) 101 mmol/L 98-110 N CARBON DIOXIDE (test code = 76250546) 31 mmol/L 20-32 N CALCIUM (test code = 65575146) 9.2 mg/dL 8.6-10.3 N PROTEIN, TOTAL (test code = 72820581) 6.6 g/dL 6.1-8.1 N ALBUMIN (test code = 22748390) 3.5 g/dL 3.6-5.1 L GLOBULIN (test code = 42102173) 3.1 g/dL (calc) 1.9-3.7 N ALBUMIN/GLOBULIN RATIO (test code = 64978687) 1.1 (calc) 1.0-2.5 N BILIRUBIN, TOTAL (test code = 25724003) 0.8 mg/dL 0.2-1.2 N ALKALINE PHOSPHATASE (test code = 15418413) 107 U/L 35-144 N AST (test code = 51440675) 10 U/L 10-35 N ALT (test code = 94548649) 15 U/L 9-46 N [facility] (DIFF/PLT)2024-01-14 15:13:00* Test Item Value Reference Range Interpretation Comme nts WHITE BLOOD CELL COUNT (test code = 58966243) 6.9 Thousand/uL 3.8-10.8 N RED BLOOD CELL COUNT (test code = 23501722) 4.47 Million/uL 4.20-5.80 N HEMOGLOBIN (test code = 12250895) 10.9 g/dL 13.2-17.1 L HEMATOCRIT (test code = 70004937) 35.5 % 38.5-50.0 L MCV (test code = 52348267) 79.4 fL 80.0-100.0 L MCH (test code = 05514996) 24.4 pg 27.0-33.0 L MCHC (test code = 20320304) 30.7 g/dL 32.0-36.0 L RDW (test code = 61987957) 14.8 % 11.0-15.0 N PLATELET COUNT (test code = 17719413) 141 Thousand/uL 140-400 N MPV (test code = 43738469) 13.2 fL 7.5-12.5 H ABSOLUTE NEUTROPHILS (test code = 94419044) 4837 cells/uL 0049-3275 N ABSOLUTE LYMPHOCYTES (test code = 67430752) 1559 cells/uL 850-3900 N ABSOLUTE MONOCYTES (test cod e = 55953491) 290 cells/uL 200-950 N ABSOLUTE EOSINOPHILS (test code = 39840198) 193 cells/uL 15-500 N ABSOLUTE BASOPHILS (test cod e = 63155465) 21 cells/uL 0-200 N NEUTROPHILS (test code = 14468904) 70.1 % N LYMPHOCYTES (test code = 02504493) 22.6 % N MONOCYTES (test code = 79859310) 4.2 % N EOSINOPHILS (test code = 59198984) 2.8 % N BASOPHILS (test code = 18108211) 0.3 % N [facility] TIME WITH [id number] 11:00:00* Test Item Value Reference Range Interpretation Comme nts INR (test code = 47947580) 1.1 N Reference Range 0.9-1.1Moderate-intensity Warfarin Therapy 2.0-3.0Higher-intensity Warfarin Therapy 3.0-4.0 PT (test code = 55382692) 11.9 sec 9.0-11.5 H For additional information, please refer [email or web address]/JAM638 (This link is being provided for informational/educational purposes only.) [facility] [id number] 14:10:00* Test Item Value Reference Range Interpretation Comme nts GLUCOSE (test code = 99637807) 120 mg/dL 65-99 H Fasting referenc e interval For someone without known diabetes, a glucose valuebetween 100 and 125 mg/dL is consistent withprediabetes and should be confirmed with afollow-up test. UREA NITROGEN (BUN) (test code = 61869062) 24 mg/dL 7-25 N CREATININE (test code = 87623479) 0.73 mg/dL 0.70-1.30 N EGFR (test code = 91080985) 105 mL/min/1.73m2 >=60 N BUN/CREATININE RATIO (test code = 61846626) SEE NOTE: (calc) 6-22 N Not Reported: BUN an d Creatinine are within reference range. SODIUM (test code = 13237062) 138 mmol/L 135-146 N POTASSIUM (test code = 42978017) 4.3 mmol/L 3.5-5.3 N CHLORIDE (test code = 26214033) 101 mmol/L 98-110 N CARBON DIOXIDE (test code = 52292390) 27 mmol/L 20-32 N CALCIUM (test code = 84346794) 8.7 mg/dL 8.6-10.3 N [facility] ([facility]FF/PLT)2023-11-19 14:10:00* Test Item Value Reference Range Interpretation Comme nts WHITE BLOOD CELL COUNT (test code = 49963450) 7.3 Thousand/uL 3.8-10.8 N RED BLOOD CELL COUNT (test code = 09856510) 4.24 Million/uL 4.20-5.80 N HEMOGLOBIN (test code = 96114134) 10.3 g/dL 13.2-17.1 L HEMATOCRIT (test code = 64495924) 34.0 % 38.5-50.0 L MCV (test code = 51347905) 80.2 fL 80.0-100.0 N MCH (test code = 17199943) 24.3 pg 27.0-33.0 L MCHC (test code = 34173084) 30.3 g/dL 32.0-36.0 L RDW (test code = 53247194) 14.5 % 11.0-15.0 N PLATELET COUNT (test code = 98112174) 166 Thousand/uL 140-400 N MPV (test code = 20927056) fL 7.5-12.5 N Due to platelet or RBC variability in size or shapethe result cannot be reported accurately. ABSOLUTE NEUTROPHILS (test code = 21983895) 5015 cells/uL 4530-2612 N ABSOLUTE LYMPHOCYTES (test code = 00582446) 1657 cells/uL 850-3900 N ABSOLUTE MONOCYTES (test code = 07434970) 321 cells/uL 200-950 N ABSOLUTE EOSINOPHILS (test code = 58565516) 277 cells/uL 15-500 N ABSOLUTE BASOPHILS (test code = 89115698) 29 cells/uL 0-200 N NEUTROPHILS (test code = 26137776) 68.7 % N LYMPHOCYTES (test code = 41236296) 22.7 % N MONOCYTES (test code = 63916762) 4.4 % N EOSINOPHILS (test code = 92718386) 3.8 % N BASOPHILS (test code = 60958073) 0.4 % N [facility] [id number] 13:21:00* Test Item Value Reference Range Interpretation Comme nts GLUCOSE (test code = 98518324) 77 mg/dL 65-99 N Fasting referenc e interval UREA NITROGEN (BUN) (test code = 24458926) 15 mg/dL 7-25 N CREATININE (test code = 66615257) 0.79 mg/dL 0.70-1.30 N EGFR (test code = 03958905) 103 mL/min/1.73m2 >=60 N BUN/CREATININE RATIO (test code = 91722363) SEE NOTE: (calc) 6-22 N Not Reported: BUN and Creatinine are within reference range. SODIUM (test code = 34594924) 138 mmol/L 135-146 N POTASSIUM (test code = 26547546) 4.2 mmol/L 3.5-5.3 N CHLORIDE (test code = 81800183) 101 mmol/L 98-110 N CARBON DIOXIDE (test code = 92138817) 28 mmol/L 20-32 N CALCIUM (test code = 15039776) 8.9 mg/dL 8.6-10.3 N [facility] (DIFF/PLT)2023-11-16 13:21:00* Test Item Value Reference Range Interpretation Comme nts WHITE BLOOD CELL COUNT (test code = 16365922) 7.1 Thousand/uL 3.8-10.8 N RED BLOOD CELL COUNT (test code = 95130560) 4.30 Million/uL 4.20-5.80 N HEMOGLOBIN (test code = 16941096) 10.4 g/dL 13.2-17.1 L HEMATOCRIT (test code = 18440458) 34.6 % 38.5-50.0 L MCV (test code = 47349776) 80.5 fL 80.0-100.0 N MCH (test code = 22250143) 24.2 pg 27.0-33.0 L MCHC (test code = 76764400) 30.1 g/dL 32.0-36.0 L RDW (test code = 73529824) 14.5 % 11.0-15.0 N PLATELET COUNT (test code = 86467028) 154 Thousand/uL 140-400 N MPV (test code = 01535687) fL 7.5-12.5 N Due to platelet or RBC variability in size or shapethe result cannot be reported accurately. ABSOLUTE NEUTROPHILS (test code = 60171574) 4665 cells/uL 3614-1590 N ABSOLUTE LYMPHOCYTES (test code = 86245292) 1818 cells/uL 850-3900 N ABSOLUTE MONOCYTES (test code = 98761192) 320 cells/uL 200-950 N ABSOLUTE EOSINOPHILS (test code = 50473922) 270 cells/uL 15-500 N ABSOLUTE BASOPHILS (test code = 50438506) 28 cells/uL 0-200 N NEUTROPHILS (test code = 24452488) 65.7 % N LYMPHOCYTES (test code = 04486475) 25.6 % N MONOCYTES (test code = 49610503) 4.5 % N EOSINOPHILS (test code = 21937695) 3.8 % N BASOPHILS (test code = 42876105) 0.4 % N [facility] MET [id number] 12:29:00* Test Item Value Reference Range Interpretation Comme nts GLUCOSE (test code = 20657216) 103 mg/dL 65-99 H Fasting referenc e interval For someone without known diabetes, a glucose valuebetween 100 and 125 mg/dL is consistent withprediabetes and should be confirmed with afollow-up test. UREA NITROGEN (BUN) (test code = 94598278) 17 mg/dL 7-25 N CREATININE (test code = 29594390) 0.93 mg/dL 0.70-1.30 N EGFR (test code = 52417784) 95 mL/min/1.73m2 >=60 N BUN/CREATININE RATIO (test code = 55938081) SEE NOTE: (calc) 6-22 N Not Reported: BUN an d Creatinine are within reference range. SODIUM (test code = 26247787) 139 mmol/L 135-146 N POTASSIUM (test code = 20246446) 4.4 mmol/L 3.5-5.3 N CHLORIDE (test code = 97685717) 104 mmol/L 98-110 N CARBON DIOXIDE (test code = 90936402) 27 mmol/L 20-32 N CALCIUM (test code = 44470244) 8.3 mg/dL 8.6-10.3 L [facility] (DIFF/PLT)2023-11-12 12:29:00* Test Item Value Reference Range Interpretation Comme nts WHITE BLOOD CELL COUNT (test code = 75505412) 6.5 Thousand/uL 3.8-10.8 N RED BLOOD CELL COUNT (test code = 30096761) 4.12 Million/uL 4.20-5.80 L HEMOGLOBIN (test code = 78114798) 10.0 g/dL 13.2-17.1 L HEMATOCRIT (test code = 21580611) 32.9 % 38.5-50.0 L MCV (test code = 90347177) 79.9 fL 80.0-100.0 L MCH (test code = 84566321) 24.3 pg 27.0-33.0 L MCHC (test code = 90519611) 30.4 g/dL 32.0-36.0 L RDW (test code = 45384642) 14.5 % 11.0-15.0 N PLATELET COUNT (test code = 19306313) 146 Thousand/uL 140-400 N MPV (test code = 06775487) fL 7.5-12.5 N Due to platelet or RBC variability in size or shapethe result cannot be reported accurately. ABSOLUTE NEUTROPHILS (test code = 91191318) 4368 cells/uL 8060-0264 N ABSOLUTE LYMPHOCYTES (test code = 79849831) 1599 cells/uL 850-3900 N ABSOLUTE MONOCYTES (test code = 99798838) 280 cells/uL 200-950 N ABSOLUTE EOSINOPHILS (test code = 45460872) 241 cells/uL 15-500 N ABSOLUTE BASOPHILS (test code = 74445495) 13 cells/uL 0-200 N NEUTROPHILS (test code = 26401155) 67.2 % N LYMPHOCYTES (test code = 77347308) 24.6 % N MONOCYTES (test code = 63290093) 4.3 % N EOSINOPHILS (test code = 51506626) 3.7 % N BASOPHILS (test code = 23714233) 0.2 % N [facility]ITALTHYROID PANEL [id number] 21:25:00* Test Item Value Reference Range Interpretation Comme nts T3 UPTAKE (test code = 67625311) 34 % 22-35 N T4 (THYROXINE), TOTAL (test code = 20842435) 6.4 mcg/dL 4.9-10.5 N FREE T4 INDEX (T7) (test cod e = 09687074) 2.2 1.4-3.8 N TSH (test code = 41510441) 1.55 mIU/L 0.40-4.[address] [facility] [id number] 21:25:00* Test Item Value Reference Range Interpretation Comme [facility] GLUCOSE (test code = 77476558) 141 mg/dL 65-99 H Fasting referenc e interval For someone without known diabetes, a glucosevalue >125 mg/dL indicates that they may havediabetes and this should be confirmed with afollow-up test. UREA NITROGEN (BUN) (test code = 13296090) 18 mg/dL 7-25 N CREATININE (test code = 21158968) 0.66 mg/dL 0.70-1.30 L EGFR (test code = 00398176) 109 mL/min/1.73m2 >=60 N BUN/CREATININE RATIO (test code = 16156658) 27 (calc) 6-22 H SODIUM (test code = 49196934) 137 mmol/L 135-146 N POTASSIUM (test code = 28688831) 3.9 mmol/L 3.5-5.3 N CHLORIDE (test code = 23826299) 100 mmol/L 98-110 N CARBON DIOXIDE (test code = 82821987) 28 mmol/L 20-32 N CALCIUM (test code = 67688353) 8.6 mg/dL 8.6-10.3 N [facility] (DIFF/PLT)2023-11-10 21:25:00* Test Item Value Reference Range Interpretation Comme [facility] WHITE BLOOD CELL COUNT (test code = 45011513) 7.6 Thousand/uL 3.8-10.8 N RED BLOOD CELL COUNT (test code = 05956608) 4.35 Million/uL 4.20-5.80 N HEMOGLOBIN (test code = 47850509) 10.5 g/dL 13.2-17.1 L HEMATOCRIT (test code = 54741212) 34.7 % 38.5-50.0 L MCV (test code = 15516786) 79.8 fL 80.0-100.0 L MCH (test code = 39779371) 24.1 pg 27.0-33.0 L MCHC (test code = 89089188) 30.3 g/dL 32.0-36.0 L RDW (test code = 50022145) 14.4 % 11.0-15.0 N PLATELET COUNT (test code = 05705731) 159 Thousand/uL 140-400 N MPV (test code = 40477877) fL 7.5-12.5 N Due to platelet or RBC variability in size or shapethe result cannot be reported accurately. ABSOLUTE NEUTROPHILS (test code = 04660761) 5046 cells/uL 3739-5830 N ABSOLUTE LYMPHOCYTES (test code = 79369870) 2006 cells/uL 850-3900 N ABSOLUTE MONOCYTES (test code = 64100610) 319 cells/uL 200-950 N ABSOLUTE EOSINOPHILS (test code = 83082979) 198 cells/uL 15-500 N ABSOLUTE BASOPHILS (test code = 92711859) 30 cells/uL 0-200 N NEUTROPHILS (test code = 29147657) 66.4 % N LYMPHOCYTES (test code = 30622750) 26.4 % N MONOCYTES (test code = 35739979) 4.2 % N EOSINOPHILS (test code = 34245664) 2.6 % N BASOPHILS (test code = 58399159) 0.4 % N [facility] W/RFL [id number] 21:25:00* Test Item Value Reference Range Interpretation Comme nts COLOR (test code = 08873558) DARK YELLOW YELLOW N APPEARANCE (test code = 55357998) CLOUDY CLEAR A SPECIFIC GRAVITY (test code = 25058706) 1.021 1.001-1.035 N PH (test code = 65641530) 5.5 5.0-8.0 N GLUCOSE (test code = 86304100) NEGATIVE NEGATIVE N BILIRUBIN (test code = 68511945) NEGATIVE NEGATIVE N KETONES (test code = 57401336) TRACE NEGATIVE A OCCULT BLOOD (test code = 19701761) NEGATIVE NEGATIVE N PROTEIN (test code = 07143254) 1+ NEGATIVE A NITRITE (test code = 66831156) NEGATIVE NEGATIVE N LEUKOCYTE ESTERASE (test code = 36752788) 2+ NEGATIVE A WBC (test code = 25649340) > OR = 60 /HPF 0-5 A RBC (test code = 26515853) NONE SEEN /HPF 0-2 N SQUAMOUS EPITHELIAL CELLS (test code = 77253613) NONE SEEN /HPF <=5 N BACTERIA (test code = 07432972) MANY /HPF NONE SEEN A HYALINE CAST (test code = 42945959) NONE SEEN /LPF NONE SEEN N NOTE (test code = 33340550) This urine was analyzed for the presence of WBC, RBC, bacteria, casts, and other formed elements. Only those elements seen were reported. [facility], UR [id number] 21:25:00* Test Item Value Reference Range Interpretation Comme nts SOURCE: (test code = 24121060) URINE STATUS: (test code = 74297931) FINAL ISOLATE 1: (test code = 96615114) Enterobacter cloacae complex A [facility],[id number] 21:25:00* Test Item Value Reference Range Interpretation Comme nts ISOLATE (test code = 04733394) N Enterobacter [place] acae complex AMOXICILLIN/CLAVULANI C (test code = 35554484) 16 R CEFAZOLIN (test code = 13846983) >=64 R For uncomplicate d UTI caused by E. coli,K. pneumoniae or P. mirabilis: Cefazolin issusceptible if LISETTE <32 mcg/mL and predictssusceptible to the oral agents cefaclor, cefdinir,cefpodoxime, cefprozil, cefuroxime, cephalexinand loracarbef. CEFTAZIDIME (test code = 44700423) <=1 S CEFEPIME (test code = 72140453) <=1 S CEFTRIAXONE (test code = 55163103) <=1 S CIPROFLOXACIN (test code = 67763251) <=0.25 S LEVOFLOXACIN (test code = 81508107) <=0.12 S GENTAMICIN (test code = 71447905) <=1 S IMIPENEM (test code = 72621663) <=0.25 S NITROFURANTOIN (test code = 45852279) 64 I PIPERACILLIN/TAZOBACT AM (test code = 19820139) <=4 S TOBRAMYCIN (test code = 39672566) <=1 S TRIMETHOPRIM/SULFA (test code = 72857899) >=320 R Legend:S = Susce ptible I = IntermediateR = Resistant NS = Not susceptible* = Not tested NR = Not reportedNN = See antimicrobic comments [facility] [id number] 21:25:00* Test Item Value Reference Range Interpretation Comme nts REFLEXIVE URINE CULTURE (test code = 20158498) CULTURE I NDICATED - RESULTS TO FOLLOW [facility] [id number] 10:09:00* Test Item Value Reference Range Interpretation Comme [facility] GLUCOSE (test code = 67815861) 141 mg/dL 65-99 H Fasting referenc e interval For someone without known diabetes, a glucosevalue >125 mg/dL indicates that they may havediabetes and this should be confirmed with afollow-up test. UREA NITROGEN (BUN) (test code = 11168998) 18 mg/dL 7-25 N CREATININE (test code = 88386300) 0.66 mg/dL 0.70-1.30 L EGFR (test code = 12121034) 109 mL/min/1.73m2 >=60 N BUN/CREATININE RATIO (test code = 30340014) 27 (calc) 6-22 H SODIUM (test code = 84030778) 137 mmol/L 135-146 N POTASSIUM (test code = 45723960) 3.9 mmol/L 3.5-5.3 N CHLORIDE (test code = 50814543) 100 mmol/L 98-110 N CARBON DIOXIDE (test code = 87051890) 28 mmol/L 20-32 N CALCIUM (test code = 17500920) 8.6 mg/dL 8.6-10.[address] [facility]2023-11-10 10:09:00* Test Item Value Reference Range Interpretation Comme nts WHITE BLOOD CELL COUNT (test code = 36886565) 7.6 Thousand/uL 3.8-10.8 N RED BLOOD CELL COUNT (test code = 83120721) 4.35 Million/uL 4.20-5.80 N HEMOGLOBIN (test code = 12077299) 10.5 g/dL 13.2-17.1 L HEMATOCRIT (test code = 37792296) 34.7 % 38.5-50.0 L MCV (test code = 63847250) 79.8 fL 80.0-100.0 L MCH (test code = 43016096) 24.1 pg 27.0-33.0 L MCHC (test code = 48397900) 30.3 g/dL 32.0-36.0 L RDW (test code = 00856044) 14.4 % 11.0-15.0 N PLATELET COUNT (test code = 90056231) 159 Thousand/uL 140-400 N MPV (test code = 44482175) fL 7.5-12.5 N Due to platelet or RBC variability in size or shapethe result cannot be reported accurately. ABSOLUTE NEUTROPHILS (test code = 89873499) 5046 cells/uL 5031-4074 N ABSOLUTE LYMPHOCYTES (test code = 42788902) 2006 cells/uL 850-3900 N ABSOLUTE MONOCYTES (test code = 72133366) 319 cells/uL 200-950 N ABSOLUTE EOSINOPHILS (test code = 73529087) 198 cells/uL 15-500 N ABSOLUTE BASOPHILS (test code = 22968803) 30 cells/uL 0-200 N NEUTROPHILS (test code = 83989466) 66.4 % N LYMPHOCYTES (test code = 41017839) 26.4 % N MONOCYTES (test code = 72816101) 4.2 % N EOSINOPHILS (test code = 17614358) 2.6 % N BASOPHILS (test code = 15700813) 0.4 % N [facility] W/RFL [id number] 10:09:00* Test Item Value Reference Range Interpretation Comme nts COLOR (test code = 71250859) DARK YELLOW YELLOW N APPEARANCE (test code = 63665646) CLOUDY CLEAR A SPECIFIC GRAVITY (test code = 50817444) 1.021 1.001-1.035 N PH (test code = 27380587) 5.5 5.0-8.0 N GLUCOSE (test code = 68084802) NEGATIVE NEGATIVE N BILIRUBIN (test code = 56859216) NEGATIVE NEGATIVE N KETONES (test code = 22179279) TRACE NEGATIVE A OCCULT BLOOD (test code = 62600340) NEGATIVE NEGATIVE N PROTEIN (test code = 25978641) 1+ NEGATIVE A NITRITE (test code = 69720284) NEGATIVE NEGATIVE N LEUKOCYTE ESTERASE (test code = 72151246) 2+ NEGATIVE A WBC (test code = 58882186) > OR = 60 /HPF 0-5 A RBC (test code = 32634479) NONE SEEN /HPF 0-2 N SQUAMOUS EPITHELIAL CELLS (test code = 53678720) NONE SEEN /HPF <=5 N BACTERIA (test code = 57327004) MANY /HPF NONE SEEN A HYALINE CAST (test code = 87567112) NONE SEEN /LPF NONE SEEN N NOTE (test code = 20816638) This urine was analyzed for the presence of WBC, RBC, bacteria, casts, and other formed elements. Only those elements seen were reported. [facility], UR [id number] 10:09:00* Test Item Value Reference Range Interpretation Comme nts SOURCE: (test code = 71927095) URINE STATUS: (test code = 23616792) PRELIMINARY ISOLATE 1: (test code = 07418200) Gram negative bacilli isolated [facility],[id number] 10:09:00* Test Item Value Reference Range Interpretation Comme nts ISOLATE (test code = 63571943) N Gram negative ba cilli isolated [facility] [id number] 10:09:00* Test Item Value Reference Range Interpretation Comme nts REFLEXIVE URINE CULTURE (test code = 02434947) CULTURE I NDICATED - RESULTS TO FOLLOW [facility] PANEL [id number] 10:09:00* Test Item Value Reference Range Interpretation Comme nts T3 UPTAKE (test code = 56144905) 34 % 22-35 N T4 (THYROXINE), TOTAL (test code = 08945063) 6.4 mcg/dL 4.9-10.5 N FREE T4 INDEX (T7) (test cod e = 60402226) 2.2 1.4-3.8 N TSH (test code = 08895293) 1.55 mIU/L 0.40-4.50 N [facility]A [id number] 21:49:00* Test Item Value Reference Range Interpretation Comme nts GLUCOSE (test code = 32108180) 117 mg/dL 65-99 H Fasting referenc e interval For someone without known diabetes, a glucose valuebetween 100 and 125 mg/dL is consistent withprediabetes and should be confirmed with afollow-up test. UREA NITROGEN (BUN) (test code = 17624963) 18 mg/dL 7-25 N CREATININE (test code = 40133890) 0.61 mg/dL 0.70-1.30 L EGFR (test code = 42964596) 111 mL/min/1.73m2 >=60 N BUN/CREATININE RATIO (test code = 11257222) 30 (calc) 6-22 H SODIUM (test code = 07313754) 137 mmol/L 135-146 N POTASSIUM (test code = 31918934) 4.4 mmol/L 3.5-5.3 N CHLORIDE (test code = 74128326) 102 mmol/L 98-110 N CARBON DIOXIDE (test code = 96775068) 26 mmol/L 20-32 N CALCIUM (test code = 11472016) 8.7 mg/dL 8.6-10.3 N PROTEIN, TOTAL (test code = 00237340) 6.5 g/dL 6.1-8.1 N ALBUMIN (test code = 31770960) 3.7 g/dL 3.6-5.1 N GLOBULIN (test code = 38104945) 2.8 g/dL (calc) 1.9-3.7 N ALBUMIN/GLOBULIN RATIO (test code = 77454010) 1.3 (calc) 1.0-2.5 N BILIRUBIN, TOTAL (test code = 43444115) 0.5 mg/dL 0.2-1.2 N ALKALINE PHOSPHATASE (test code = 46324397) 112 U/L 35-144 N AST (test code = 81368266) 17 U/L 10-35 N ALT (test code = 90206763) 17 U/L 9-46 N [facility] TIME WITH [id number] 21:49:00* Test Item Value Reference Range Interpretation Comme nts INR (test code = 37992731) 1.1 N Reference Range 0.9-1.1Moderate-intensity Warfarin Therapy 2.0-3.0Higher-intensity Warfarin Therapy 3.0-4.0 PT (test code = 30243761) 11.4 sec 9.0-11.5 N For additional information, please refer [email or web address] (This link is being provided for informational/educational purposes only.) [facility]FF/PLT)2023-11-09 21:49:00* Test Item Value Reference Range Interpretation Comme nts WHITE BLOOD CELL COUNT (test code = 00953683) 8.0 Thousand/uL 3.8-10.8 N RED BLOOD CELL COUNT (test code = 70198904) 4.25 Million/uL 4.20-5.80 N HEMOGLOBIN (test code = 50468602) 10.1 g/dL 13.2-17.1 L HEMATOCRIT (test code = 31844117) 33.9 % 38.5-50.0 L MCV (test code = 32700763) 79.8 fL 80.0-100.0 L MCH (test code = 95913916) 23.8 pg 27.0-33.0 L MCHC (test code = 57761282) 29.8 g/dL 32.0-36.0 L RDW (test code = 88318437) 14.5 % 11.0-15.0 N PLATELET COUNT (test code = 50006482) 149 Thousand/uL 140-400 N MPV (test code = 00495571) fL 7.5-12.5 N Due to platelet or RBC variability in size or shapethe result cannot be reported accurately. ABSOLUTE NEUTROPHILS (test code = 35304714) 5928 cells/uL 6450-0298 N ABSOLUTE LYMPHOCYTES (test code = 71640053) 1560 cells/uL 850-3900 N ABSOLUTE MONOCYTES (test code = 08166946) 336 cells/uL 200-950 N ABSOLUTE EOSINOPHILS (test code = 72684254) 160 cells/uL 15-500 N ABSOLUTE BASOPHILS (test code = 35392694) 16 cells/uL 0-200 N NEUTROPHILS (test code = 53074241) 74.1 % N LYMPHOCYTES (test code = 25352154) 19.5 % N MONOCYTES (test code = 43684606) 4.2 % N EOSINOPHILS (test code = 51242952) 2.0 % N BASOPHILS (test code = 03816292) 0.2 % N [facility] [id number] 20:16:00* Test Item Value Reference Range Interpretation Comme nts HEMOGLOBIN A1c (test code = 65407829) 10.3 % of total Hgb <5.7 H For someone without known diabetes, a hemoglobin W3xhbafj of 6.5% or greater indicates that they [...] shifted HbA1c results compared to historical results. [facility]
[2025-02-22 04:51] LABS: Arterial Blood Carboxyhemoglob 1.8 % (0-1.5); Blood Gas Oxyhemoglobin 87.3 % (94-97); Blood Gas THB 7.5 g/dl (12-18); Blood O2 Saturation 90.8 % (92-98.5)
[2025-02-22] MEDS ORDERED: IPRATROPIUM BROM 0.5MG/2.5ML ONE (04:57)
[2025-02-22] MEDS ORDERED: VANCOMYCIN 1 GM/VIAL ONE ×3 (04:57→13:46)
[2025-02-22] MEDS ORDERED: ALBUTEROL 2.5 MG/3 ML NEB SOL ONE (04:57)
[2025-02-22] MEDS ORDERED: ACETAMINOPHEN 500 MG TAB ONE (04:57)
[2025-02-22] MEDS ORDERED: HYDROCORTISONE SUC 100 MG INJ ONE (04:58)
[2025-02-22] MEDS ORDERED: NA CHLORIDE 0.9% 0 ML ONE (04:58)
[2025-02-22] MEDS ORDERED: CEFEPIME 2 GM VIAL ONE (04:58)
[2025-02-22] MEDS ORDERED: IBUPROFEN 400 MG TAB ONE (04:58)
[2025-02-22] MEDS ORDERED: NA CHLORIDE 0.9% 100 ML ONE ×2 (04:59→16:31)
[2025-02-22] MEDS ORDERED: ALBUMIN HUMAN 25% 100 ML IV ONE (04:59)
[2025-02-22 05:43] LABS: Absolute Lymphocytes (CBC) 0.6 K/uL (0.7-4.9); Absolute Monocytes 0.5 K/uL (0.1-1.3); Absolute Neutrophil 17.4 K/uL (1.8-8.0); Basophils % 0.2 % (0-1.3); Eosinophils % 0.1 % (0-4.4); Hemoglobin 7.1 g/dL (13.6-17.9); Lymphocytes % 3.3 % (15.3-44.8); MCH 19.4 pg (27.0-35.0); MCHC 29.7 g/dL (32.0-36.0); MCV 65.1 fL (80-100); Neutrophils % 93.4 % (41.7-73.7); Platelets 233 thou/uL (152-406); RBC Red Blood Cell Count 3.68 M/uL (4.33-5.43); Red Cell Distribution Width 19.1 % (12.1-15.2)
[2025-02-22] MEDS ORDERED: NA CHLORIDE 0.9% 3,000 ML ONE (05:47)
[2025-02-22] MEDS ORDERED: ONDANSETRON 4 MG/2 ML VIAL ONE (05:50)
[2025-02-22 05:51] LABS: PT Prothrombin Time 15.2 SECONDS (10-13.0); PTT, Activated Partial Thromb 24.5 SECONDS (27.2-37.4); Protime INR 1.35
--- NOTE | 2025-02-22 06:13 | RAD REPORT ---
EXAM: Chest Single View HISTORY: 59 years Male CENTRAL LINE COMPARISON: 06/10/2024 FINDINGS: LUNGS/PLEURA: Low lung volumes accentuates the pulmonary vasculature. Lung bases not well assessed. N o definite acute process. CARDIAC/MEDIASTINUM: Magnified by portable technique, but probably within normal limits. UPPER ABDOMEN: No significant abnormality. BONES: No acute abnormality. LINES/TUBES/OTHER: Left IJ approach central venous line with tip overlying the mid SVC. IMPRESSION: Low lung volumes without definite acute process in the lung bases are difficult to evaluate. Left IJ approach central line with tip overlying the SVC.
[2025-02-22 06:22] LABS: Albumin 2.3 g/dL (3.4-5.0); Albumin/Globulin Ratio 0.5 (1.1-1.8); Anion Gap 7.7 mEq/L (5.0-15.0); Bilirubin Total 0.5 mg/dL (0.2-1.0); Globulin 4.6 g/dL (2.3-3.5); Potassium 3.7 mEq/L (3.5-5.1); Protein, Total 6.9 g/dL (6.4-8.2); Thyroid Stimulating Hormone 1.29 uIU/mL (0.358-3.740)
[2025-02-22 06:25] LABS: Troponin High Sensitivity 113.3 pg/mL (<58.9)
[2025-02-22 06:26] LABS: Specific Gravity 1.008 (1.005-1.030); Sqamous Epithelial <5 /HPF (None Seen); Urine Bacteria <20 /HPF (<20); Urine Bilirubin NEGATIVE (Negative); Urine Blood Trace (Negative); Urine Clarity Turbid (Clear); Urine Color Light-Yellow (Yellow); Urine Culture Reflex Order REFLEXED; Urine Glucose NEGATIVE (Negative); Urine Ketones NEGATIVE (Negative); Urine Microscopic Reflex YN ORDER UMIC; Urine Mucus Slight /HPF (None Seen); Urine Nitrite NEGATIVE (Negative); Urine Protein NEGATIVE (Negative); Urine RBC <5 /HPF (None Seen); Urine Urobilinogen Normal (Normal); Urine WBC 20-50 /HPF (<5); Urine Yeast (Budding) Trace /HPF (None Seen); Urine pH 6.5 (5.0-7.0)
[2025-02-22 06:48] LABS: Influenza A Ag Negative; Influenza B Ag Negative; SARS-CoV-2 Antigen Rapid Res Negative (Negative)
--- NOTE | 2025-02-22 07:14 | RAD REPORT ---
EXAMINATION: Head Brain Wo Cont CLINICAL INDICATION: Male, 59 years old.DECLINING STATE TECHNIQUE: Axial CT images from the skull base to the vertex without intravenous contrast. Coronal an d sagittal reformatted images were created from the data set. One or more of the following dose reduction techniques were used: Automated exposure control, adjustment of the mA and/or kV according to patient size, and/or iterative reconstruction. Unless otherwise specified, incidental findings do not require dedicated imaging follow-up. [id number]. COMPARISON: 01/11/2024 FINDINGS: INTRACRANIAL: No acute intracranial hemorrhage. No hydrocephalus. No mass effect or midline shift. No significant white matter disease. VASCULATURE: No visualized abnormalities in the arteries or dural venous sinuses. SCALP/SKULL: No calvarial fracture identified. No acute soft tissue abnormality. SINUSES: The visualized paranasal sinuses are mostly clear. No significant mastoid fluid. IMPRESSION: No acute intracranial abnormality.
--- NOTE | 2025-02-22 07:32 | RAD REPORT ---
EXAM: Chest Abdomen Pelvis W Cont CLINICAL INDICATION: Male, 59 years CHEST PAIN TECHNIQUE: CT chest, abdomen and pelvis was performed, with IV contrast, as per department protocol. Axial, sagittal and coronal reconstructions were obtained. One or more of the following dose reduction techniques were used: Automated exposure control, adjustment of the mA and/or kV according to the patient size, and/or iterative reconstruction. Unless otherwise specified, incidental findings do not require dedicated imaging follow-up. [id number]. COMPARISON: Same-day chest x-ray FINDINGS: ---THORAX--- LOWER NECK AND CHEST WALL: Visualized thyroid gland and soft tissues are normal. Left IJ approach alli tral line with tip in SVC. LUNGS AND AIRWAYS: Left lower lobe and to lesser extent right lower lobe consolidation.Motion artifac t limits evaluation for pulmonary nodule detection. PLEURA: No pleural effusion. No pneumothorax. MEDIASTINUM AND LYMPH NODES: No mediastinal mass or fluid collection. Normal size mediastinal, hilar, and axillary lymph nodes. THORACIC AORTA: No thoracic aortic aneurysm. PULMONARY ARTERIES: Caliber is within normal limits. Unable to evaluate for pulmonary emboli due to e ither protocol or lack of contrast. HEART: Moderate cardiomegaly. No coronary calcifications.No significant pericardial effusion. ---ABDOMEN/PELVIS--- UPPER GI: No significant abnormality. LIVER: Cirrhotic liver morphology. No focal masses. GALLBLADDER/BILE DUCTS: Cholelithiasis without CT evidence of acute cholecystitis.? PANCREAS: Atrophy but no acute findings. SPLEEN: Mild splenomegaly. ADRENALS: No adrenal masses. KIDNEYS AND URETERS: No hydronephrosis.Indeterminate renal lesions bilaterally which are unchanged si nce 06/08/2024.No renal calculi.No ureteral calculi. ABDOMINAL AORTA AND OTHER VESSELS: Normal caliber aorta and IVC. PERITONEUM: No abnormal free fluid. No free air. LYMPH NODES: No pathologic lymphadenopathy. ABDOMINAL WALL: Small fat containing umbilical hernia. SMALL BOWEL/COLON: Small bowel has normal course and caliber. No colonic wall thickening or pericolon ic inflammatory changes. URINARY BLADDER: Circumferential bladder wall thickening with Mendoza catheter. Stranding is present. REPRODUCTIVE ORGANS: No pathologic process. ---COMBINED--- MUSCULOSKELETAL: Sacral decubitus ulcer which extends up to the sacrum and has a tract of gas and flu id extending to the left ischium. Fused SI joints. Bridging osteophytes in the spine. No acute fracture. ADDITIONAL FINDINGS: None. IMPRESSION: 1. Left lower lobe and to lesser extent right lower lobe consolidation concerning for pneumonia. 2. Worsening appearance of the sacral decubitus ulcer which extends from the sacrum where there is [place] destruction and now extends up to the ischium as well. Progressive osteomyelitis suspected. 3. Cholelithiasis without CT evidence of acute process. 4. Bladder wall thickening with the compressed bladder around a Mendoza catheter balloon. Correlate wit h urinalysis. 5. Cirrhosis increased minimally..
[2025-02-22 08:21] LABS: Anisocytosis 1+; Blood Morphology Comment NOTED (NOT SEEN); Hypochromasia 2+; Microcytosis 1+; Platelet Estimate ADEQ; Polychromasia 1+; White Blood Cell Scan OK (OK)
--- NOTE | 2025-02-22 08:23 | ER ---
Nurse's Notes [facility] Name: Tej Kumar Age: 59 yrs Sex: Male : 1965 Arrival Date: 02/22/2025 Time: 03:40 Bed 24 Private MD: Diagnosis: Osteomyelitis, unspecified;UTI/ Urinary tract infection, site not specified Presentation: 02/22 04:06 Chief complaint: EMS states: fever, body aches, chills x2 days. upon ems arrival, al5 patient oxygen levels in mid 80s room air. Coronavirus screen: At this time, the client does not indicate any symptoms associated with coronavirus-19. Ebola Screen: No symptoms or risks identified at this time. Initial Sepsis Screen: Does the patient meet any 2 criteria? Temp <36.0*C (96.8*F)) or > 38.3*C (100.9*F). HR > 90 bpm. Yes Does the patient have a suspected source of infection? No. Patient's initial sepsis screen is negative. Risk Assessment: Do you want to hurt yourself or someone else? Patient reports no desire to harm self or others. Onset of symptoms was February 20, 2025. 04:06 Method Of Arrival: EMS: [facility] ar5 04:06 Acuity: DAVID 3 al5 04:06 Note [facility] #[id number]. al5 Triage Assessment: 04:11 General: Appears in no apparent distress. Behavior is calm, cooperative. Pain: al5 Complains of pain in abdomen Pain currently is 2 out of 10 on a pain scale. Quality of pain is described as aching. EENT: No signs and/or symptoms were reported regarding the EENT system. Neuro: Level of Consciousness is awake, alert, obeys commands, Oriented to person, place, time, situation. Cardiovascular: Capillary refill < 3 seconds Rhythm is sinus tachycardia. Respiratory: Airway is patent Respiratory effort is even, unlabored, Respiratory pattern is regular, symmetrical. GI: Abdomen is non-distended, obese, Colostomy site is clean and dry. Ostomy appliance is intact. : Mendoza in place suprapubic catheter in place to gravity drainage. Derm: Skin is intact, is healthy with good turgor, Skin is diaphoretic, Skin is normal, Skin temperature is warm Wound noted Other: patient has sacral wound with wound vac. Musculoskeletal: Amputation of Other: above R knee. Historical: - Allergies: 04:10 unknown antibiotic and steroid; al5 - PMHx: 04:10 CVA; diabetes mellitus; Hypertensive disorder; Congestive heart failure; al5 Hypercholesterolemia; - PSHx: 04:10 right AKA; Colostomy; al5 - Immunization history:: Adult Immunizations up to date. - Infectious Disease History:: Denies. - Social history:: Smoking status: Patient denies any tobacco usage or history of. - Family history:: not pertinent. Screenin:12 [facility] ED Fall Risk Assessment (Adult) History of falling in the last 3 months, al5 including since admission No falls in past 3 months (0 pts) Confusion or Disorientation No (0 pts) Intoxicated or Sedated No (0 pts) Impaired Gait Yes (1 pt) Mobility Assist Device Used Yes (1 pt) Altered Elimination Yes (1 pt) Score/Fall Risk Level 3 or more points = High Risk Maintained a safe environment, Hourly rounding (assess needs \T\ fall precautionary measures) done. Abuse screen: Denies threats or abuse. Denies injuries from another. Nutritional screening: No deficits noted. Tuberculosis screening: No symptoms or risk factors identified. Assessment: 04:12 Reassessment: see triage assessment. al5 05:22 Reassessment: Patient appears in no apparent distress at this time. No changes from al5 previously documented assessment. Patient and/or family updated on plan of care and expected duration. Pain level reassessed. Patient is alert, oriented x 3, equal unlabored respirations, skin warm/dry/pink. 06:15 Reassessment: Patient appears in no apparent distress at this time. No changes from al5 previously documented assessment. Patient and/or family updated on plan of care and expected duration. Pain level reassessed. Patient is alert, oriented x 3, equal unlabored respirations, skin warm/dry/pink. Vital Signs: 04:00 BP 100 / 63; Pulse 115; Resp 23; Pulse Ox 91% on 3 lpm NC; al5 04:06 BP 107 / 61; Pulse 118; Resp 20; Temp 102.9; Pulse Ox 89% on R/A; Weight 115.5 kg; al5 Height 5 ft. 11 in. ; 04:30 BP 106 / 62; Pulse 109; Resp 25; Pulse Ox 96% on 4 lpm NC; al5 05:00 BP 112 / 55; Pulse 102; Resp 21; Pulse Ox 96% on 4 lpm NC; al5 05:30 BP 118 / 63; Pulse 102; Resp 21; Pulse Ox 98% on 4 lpm NC; al5 06:00 BP 115 / 64; Pulse 97; Resp 14; Pulse Ox 98% on 4 lpm NC; al5 06:30 BP 123 / 63; Pulse 98; Resp 19; Temp 98.1; Pulse Ox 95% 4 lpm ; al5 07:15 BP 106 / 58; Pulse 94; Resp 18; Pulse Ox 90% ; db 08:00 BP 100 / 57; Pulse 88; Resp 19; Pulse Ox 93% ; db 09:15 BP 108 / 57; Pulse 80; Resp 18; Temp 98.9(A); Pulse Ox 94% ; db 10:30 BP 104 / 92; Pulse 87; Resp 18; Pulse Ox 98% on 4 lpm NC; ph 11:30 BP 106 / 62; Pulse 87; Resp 16; Pulse Ox 97% on 4 lpm NC; ph 04:06 Body Mass Index 35.51 (115.50 kg, 180.34 cm) al5 Cutler Coma Score: 05:58 Eye Response: spontaneous(4). Motor Response: obeys commands(6). Verbal Response: sp4 oriented(5). Total: 15. ED Course: 03:44 Patient arrived in ED. vc1 03:44 Kp Lopez MD is Attending Physician. sp4 04:06 Adriana Ray RN is Primary Nurse. al5 04:10 Triage completed. al5 04:12 Arm band placed on right wrist. Patient placed in the treatment room, in view of staff al5 members, on oxygen, on bus monitor, on pulse oximetry. 04:12 Patient has correct armband on for positive identification. Placed in gown. Bed in low al5 position. Call light in reach. Side rails up X2. Provided Education on: Procedure Consent, plan of care. 04:30 Mendoza cath removed intact, balloon deflated. al5 04:44 Mendoza cath inserted, using sterile technique, 18 Fr., by nm, balloon inflated, to al5 gravity drainage, urine specimen collected. 04:58 Radiology exam delayed due to lab results not completed at this time. (BUN/Creatinine) nj IV insertion attempt and/or patient not having appropriate IV at this time. 05:23 Inserted saline lock: 20 gauge in right antecubital area, using aseptic technique. al5 Blood collected. Flushed with 10 mL NS. 05:27 Assisted provider with central line placement. Set up central line tray. Triple lumen al5 line placed in left internal jugular. Line placed by Kp Lopez MD Placement verified by CXR, blood return, Dressed with 4X4s, Tegaderm, Patient tolerated well. Before procedure, did Practitioner(s) obtain informed consent? Yes. Patient \T\ family education about procedure, CLABSI prevention and S/S of infection? Yes. Time-out/Briefing performed prior to start of procedure? Yes. Was handwashing/sanitizing done immediately prior to procedure? Yes. Was patient positioned to in a way to prevent air embolism? Yes. Was procedure site sterilized? Yes, with chlorhexidine. Was the site allowed to dry? Yes. Was local anesthetic and/or sedation utilized? Yes. During the procedure, did the Practitioner(s) maintain a sterile field? Yes. Were unused ports clamped during insertion? Yes. Was a 2nd qualified MD obtained after 3 unsuccessful insertion attempts? No. Was blood aspirated from each lumen? Yes. After the procedure, did the Practitioner(s) clean the site and apply a sterile dressing? Yes. 05:59 Chest Single View In Process Unspecified. EDMS 06:15 One-on-one care X 120 minutes. al5 07:01 CT Head Brain wo Cont In Process Unspecified. EDMS 07:07 Attending Physician role handed off by Kp Lopez MD gb1 07:07 Kimberly Davies MD is Attending Physician. gb1 07:22 CT Chest, Abdomen, Pelvis - W/Contrast In Process Unspecified. EDMS 08:21 Chandler Barnett is Hospitalizing Provider. gb1 Administered Medications: 05:27 Drug: Solu-CORTEF IVP 100 mg IVP once Route: IVP; Site: right antecubital; al5 07:03 Follow up: Response: No adverse reaction al5 05:28 Drug: Cefepime IVPB 2 grams IVPB at 200 ml/hr once over 30 mins; (mix in NS 100 mL) al5 Route: IVPB; Rate: 200 ml/hr; Infused Over: 30 mins; Site: right antecubital; 05:58 Follow up: Response: No adverse reaction; IV Status: Completed infusion; IV Intake: al5 100ml 05:44 Drug: Ibuprofen PO 800 mg PO once Route: PO; al5 07:04 Follow up: Response: No adverse reaction; Temperature is decreased al5 05:44 Drug: Acetaminophen PO 1000 mg PO once Route: PO; al5 07:02 Follow up: Response: No adverse reaction; Temperature is decreased al5 05:50 Drug: Albumin IVPB 25 grams 100 ml IVPB once; (Note: Albumin 25% concentration) Volume: al5 100 ml; Route: IVPB; Site: left jugular; 07:03 Follow up: Response: No adverse reaction; IV Status: Completed infusion; IV Intake: al5 100ml 05:58 Drug: Ondansetron IVP 4 mg IVP once; over 2 minutes Route: IVP; Site: right antecubital;al5 07:04 Follow up: Response: No adverse reaction al5 06:00 Drug: Albuterol Inhalation 2.5 mg Inhalation once Route: Inhalation; al5 07:03 Follow up: Response: No adverse reaction al5 06:00 Drug: Ipratropium Inhalation Aerosol 0.5 mg Inhalation once Route: Inhalation; al5 07:03 Follow up: Response: No adverse reaction al5 06:02 Drug: vancoMYCIN IVPB 2 grams IVPB at calculated rate once Route: IVPB; Rate: al5 calculated rate; Site: left jugular; 08:00 Follow up: Response: No adverse reaction; IV Status: Completed infusion ph 06:03 Drug: NS 0.9% IV (30 ml/kg) 30 ml/kg IV at bolus once; Sepsis Protocol; to be given as al5 a bolus over 90 minutes Route: IV; Rate: bolus; Site: left jugular; 14:43 Follow up: Response: No adverse reaction; IV Status: Completed infusion ph 06:07 Not Given (Hemodynamic Parameters): norepinephrine0.1 mcg/kg/min IV at calculated rate al5 See Administration Instructions; (Standard concentration 4 mg / 250 mL D5W); Recommended max rate 3 mcg/kg/min; Titrate 0.05 mcg/kg/min as often as every 5 minutes to achieve goal (see titration policy); Goal parameter MAP greater than 65 mmHg. 06:09 Not Given (Other Intervention Used): acetaminophensuppository 650 mg SC once al5 Medication: 04:12 VIS not applicable for this client. al5 Intake: 05:58 IV: 100ml; Total: 100ml. al5 07:03 IV: 100ml; Total: 200ml. al5 Outcome: 08:22 Decision to Hospitalize by Provider. gb1 19:31 Patient left the ED. vc1 Signatures: Dispatcher [employer] EDYana Johnson RN RN Juan David, Hilaria Antonio RN RN vc1 Treva Burgos RN RN db Potepalov, Sergey, MD MD sp4 Kimberly Davies MD MD gb1 Adriana Ray RN RN al5 Corrections: (The following items were deleted from the chart) 04:13 04:12 Provided Education on: plan of care. al5 al5 04:13 04:12 No provider procedures requiring assistance completed. al5 al5 06:16 04:11 Cardiovascular: Capillary refill < 3 seconds Patient's skin is warm and dry. al5 Rhythm is sinus tachycardia al5 06:16 04:11 Derm: Skin is intact, is healthy with good turgor, Skin is pink, warm \T\ dry. al5 normal, al5
--- NOTE | 2025-02-22 08:23 | EDPHYS ---
Physician Documentation [facility] Name: Tej Kumar Age: 59 yrs Sex: Male : 1965 Arrival Date: 02/22/2025 Time: 03:40 Bed 24 Private MD: ED Physician Kimberly Davies HPI: 02/22 03:59 This 59 yrs old Male presents to ER via Unassigned with complaints of Fever, sp4 Flu Symptoms. 05:55 59-year-old male with history of prolonged immobility, right above-knee amputation, sp4 sacral decubitus ulcer with wound VAC, colostomy, indwelling Mendoza catheter, presents with acute fever, shortness of breath, hypoxemia, and generalized weakness.. Patient's primary physician is Dr. Drake. Patient has history of sacral decubitus ulcer stage III, wound VAC, colostomy, indwelling Mendoza catheter, chronic urinary retention, hypertension, severe calorie malnutrition, morbid obesity and prolonged immobility. History of partial colectomy with diversion colostomy, history of ESBL urine infection with prior management with meropenem. Patient's home medications include hydrocodone.. 05:57 EMS reported patient was febrile also hypoxemic on arrival in the 70s. Diffuse crackles sp4 on exam. Signs of severe physical debility. Nonambulatory status.. Historical: - Allergies: 04:10 unknown antibiotic and steroid; al5 - PMHx: 04:10 CVA; diabetes mellitus; Hypertensive disorder; Congestive heart failure; al5 Hypercholesterolemia; - PSHx: 04:10 right AKA; Colostomy; al5 - Immunization history:: Adult Immunizations up to date. - Infectious Disease History:: Denies. - Social history:: Smoking status: Patient denies any tobacco usage or history of. - Family history:: not pertinent. ROS: 05:58 Constitutional: Positive fever, positive shortness of breath, positive generalized sp4 weakness. 05:58 All other systems are negative, Exam: 05:58 Constitutional: Morbidly obese male, prolonged physical immobility, severe debility, sp4 right below-knee amputee, diffusely edematous, febrile on arrival, acutely short of breath, hypoxemic on arrival, high flow nasal cannula, low left lower quadrant abdominal colostomy, indwelling Mendoza catheter, sacral wound with wound VAC in place. Head/Face: Normocephalic, atraumatic. Eyes: Pupils equal round and reactive to light, extra-ocular motions intact. Lids and lashes normal. Conjunctiva and sclera are not injected. Cornea within normal limits. Periorbital areas with no swelling, redness, or edema. ENT: Nares patent. No nasal discharge, no septal abnormalities noted. Tympanic membranes are normal and external auditory canals are clear. Oropharynx with no redness, swelling, or masses, exudates, or evidence of obstruction, uvula midline. Mucous membranes moist. Neck: Trachea midline, no thyromegaly or masses palpated, and no cervical lymphadenopathy. Neck contracture secondary to prolonged immobility. Decreased ROM of the neck. Chest/axilla: Normal chest wall appearance and motion. Nontender with no deformity. No lesions are appreciated. Cardiovascular: Tachycardia on arrival, no gallops, murmurs, or rubs. Normal PMI, no JVD. No pulse deficits. Diffusely edematous Respiratory: Lungs have equal breath sounds bilaterally, positive bilateral crackles, no wheezing. Dyspnea and tachypnea Abdomen/GI: Soft, with normal bowel sounds. No distension or tympany. No guarding or rebound. No evidence of tenderness throughout. Left lower quadrant abdominal colostomy, indwelling Mendoza catheter Back: No spinal tenderness. No costovertebral tenderness. Sacral decubitus ulcer with wound VAC in place. Male : Normal genitalia with no discharge or lesions. Indwelling Mendoza catheter Skin: Warm, with normal turgor. Normal color with no rashes, no lesions, and no evidence of cellulitis. Patient arrived diaphoretic MS/ Extremity: Pulses equal, no cyanosis. Right above-knee amputation with healed stump. Bilateral upper and left lower extremity edema that appears chronic without pitting Neuro: Awake and alert, GCS 15, oriented to person, place, time, and situation. Cranial nerves II-XII grossly intact. Motor strength 5/5 in all extremities. Sensory grossly intact. 06:06 ECG was reviewed by the Attending Physician. EKG at 0 426 sinus tachycardia rate 110 sp4 otherwise normal Vital Signs: 04:00 BP 100 / 63; Pulse 115; Resp 23; Pulse Ox 91% on 3 lpm NC; al5 04:06 BP 107 / 61; Pulse 118; Resp 20; Temp 102.9; Pulse Ox 89% on R/A; Weight 115.5 kg; al5 Height 5 ft. 11 in. ; 04:30 BP 106 / 62; Pulse 109; Resp 25; Pulse Ox 96% on 4 lpm NC; al5 05:00 BP 112 / 55; Pulse 102; Resp 21; Pulse Ox 96% on 4 lpm NC; al5 05:30 BP 118 / 63; Pulse 102; Resp 21; Pulse Ox 98% on 4 lpm NC; al5 06:00 BP 115 / 64; Pulse 97; Resp 14; Pulse Ox 98% on 4 lpm NC; al5 06:30 BP 123 / 63; Pulse 98; Resp 19; Temp 98.1; Pulse Ox 95% 4 lpm ; al5 07:15 BP 106 / 58; Pulse 94; Resp 18; Pulse Ox 90% ; db 08:00 BP 100 / 57; Pulse 88; Resp 19; Pulse Ox 93% ; db 09:15 BP 108 / 57; Pulse 80; Resp 18; Temp 98.9(A); Pulse Ox 94% ; db 10:30 BP 104 / 92; Pulse 87; Resp 18; Pulse Ox 98% on 4 lpm NC; ph 11:30 BP 106 / 62; Pulse 87; Resp 16; Pulse Ox 97% on 4 lpm NC; ph 04:06 Body Mass Index 35.51 (115.50 kg, 180.34 cm) al5 [place] Coma Score: 05:58 Eye Response: spontaneous(4). Motor Response: obeys commands(6). Verbal Response: sp4 oriented(5). Total: 15. Procedures: 05:51 Central Line: the site was prepped with Betadine, in sterile fashion, a triple lumen sp4 catheter was inserted, in the left internal jugular vein, in 1 attempts. placement was verified, by CXR, by blood return, Ultrasound-guided central line, the site was dressed with 4X4s, Tegaderm, using sterile technique, the patient tolerated the procedure, well, Central line placed secondary to exhausted peripheral access also sepsis. Patient had no complications. MDM: 03:47 Medical Screening Exam initiated sp4 06:02 Differential diagnosis: viral Infection, bacterial infection, URI, bronchitis, sp4 pneumonia UTI, gastroenteritis. Data reviewed: vital signs, nurses notes, EMS record, old medical records, lab test result(s), EKG, radiologic studies, CT scan, plain films. 06:02 Differential diagnosis: viral Infection. Data reviewed: vital signs. sp4 07:13 Consideration of Admission/Observation Escalation of care including sp4 admission/observation considered. Management of patient was discussed with the following: Hospitalist: Anibal SMITH . Transition of care: After a detail discussion of the patient's case, care is transferred to Kimberly Davies MD. 08:23 ED course: I received this patient in turnover from Dr. Miranda pending CT of the chest gb1 abdomen and pelvis. CT of the pelvis did show a developing sacral osteomyelitis left secondary to a decubitus ulcer. Patient be admitted to the hospital IV antibiotics have already been started as well as sepsis dose of normal saline.. ED course: Volume status/tissue perfusion and response to fluid bolus and sepsis reassessment was completed.. 02/22 03:45 Order name: Blood Culture Adult (2) sp4 02/22 03:45 Order name: CBC with Diff; Complete Time: 09:55 sp4 02/22 03:45 Order name: CMP; Complete Time: 06:32 sp4 02/22 03:45 Order name: Lactate w/ 2H reflex if indic.; Complete Time: 06:07 sp4 02/22 03:45 Order name: Protime (+inr); Complete Time: 06:07 sp4 02/22 03:45 Order name: Ptt, Activated; Complete Time: 06:07 sp4 02/22 03:45 Order name: Urinalysis w/ reflexes; Complete Time: 06:32 sp4 02/22 03:45 Order name: ABG; Complete Time: 06:07 sp4 02/22 03:47 Order name: Troponin High Sensitivity; Complete Time: 06:32 sp4 02/22 05:51 Order name: CBC Smear Scan; Complete Time: 09:55 EDMS 02/22 05:58 Order name: COVID-19 Ag + Flu A+B Ag; Complete Time: 07:08 sp4 02/22 05:58 Order name: RSV Ag sp4 02/22 06:02 Order name: NT PRO-BNP; Complete Time: 06:32 EDMS 02/22 06:02 Order name: C-Reactive Protein; Complete Time: 06:32 EDMS 02/22 06:02 Order name: T4 Free; Complete Time: 06:32 EDMS 02/22 06:02 Order name: Thyroid Stimulating Hormone; Complete Time: 06:32 EDMS 02/22 06:30 Order name: Urine Culture EDMS 02/22 06:32 Order name: Urine Culture EDMS 02/22 10:26 Order name: Basic Metabolic Panel EDMS 02/22 10:26 Order name: Basic Metabolic Panel EDMS 02/22 10:26 Order name: Basic Metabolic Panel EDMS 02/22 10:26 Order name: Basic Metabolic Panel EDMS 02/22 10:26 Order name: Basic Metabolic Panel EDMS 02/22 10:26 Order name: Basic Metabolic Panel EDMS 02/22 10:26 Order name: Basic Metabolic Panel EDMS 02/22 10:26 Order name: Basic Metabolic Panel EDMS 02/22 10:26 Order name: CBC with Automated Diff EDMS 02/22 10:26 Order name: CBC with Automated Diff EDMS 02/22 10:26 Order name: CBC with Automated Diff EDMS 02/22 10:26 Order name: CBC with Automated Diff EDMS 02/22 10:26 Order name: CBC with Automated Diff EDMS 02/22 10:26 Order name: CBC with Automated Diff EDMS 02/22 10:26 Order name: CBC with Automated Diff EDMS 02/22 10:26 Order name: CBC with Automated Diff EDMS 02/22 12:43 Order name: Glucose, Ancillary Testing; Complete Time: 17:41 EDMS 02/22 15:33 Order name: Troponin High Sensitivity; Complete Time: 17:41 EDMS 02/22 16:59 Order name: Glucose, Ancillary Testing; Complete Time: 17:41 EDMS 02/22 03:45 Order name: CT Head Brain wo Cont; Complete Time: 08:14 sp4 02/22 03:46 Order name: CT Chest, Abdomen, Pelvis - W/Contrast; Complete Time: 08:14 sp4 02/22 05:32 Order name: Chest Single View; Complete Time: 06:32 EDMS 02/22 03:45 Order name: Cardiac monitoring; Complete Time: 04:50 sp4 02/22 03:45 Order name: Cath; Complete Time: 04:51 sp4 02/22 03:45 Order name: EKG - Nurse/Tech; Complete Time: 04:50 sp4 02/22 03:45 Order name: IV Saline Lock - Large Bore; Complete Time: 06:11 sp4 02/22 03:45 Order name: Labs collected and sent; Complete Time: :02/22 03:45 Order name: O2 Per Protocol; Complete Time: :02/22 03:45 Order name: O2 Sat Monitoring; Complete Time: :02/22 03:45 Order name: Vital Signs; Complete Time: 04: sp4 02/22 03:45 Order name: Central Line Dressing Kit; Complete Time: :02/22 03:45 Order name: Central Line Kit; Complete Time: :02/22 03:45 Order name: Chlorhexidine prep; Complete Time: :02/22 03:45 Order name: Consent for central line completed; Complete Time: :02/22 03:45 Order name: Line Caps x3; Complete Time: :02/22 03:45 Order name: NS Flushes x3; Complete Time: :4 02/22 03:45 Order name: Sterile Gloves; Complete Time: :4 02/22 03:45 Order name: Sterile Probe Cover; Complete Time: :4 02/22 03:59 Order name: Misc. Order: Exchange Mendoza Catheter; Complete Time: EC:26 Rate is 110 beats/min. Rhythm is regular, Sinus tachycardia. QRS [place] is Normal. MS sp4 interval is normal. QRS interval is normal. QT interval is normal. No Q waves. T waves are Normal. No ST changes noted. Clinical impression: No evidence of ischemia. Interpreted by me. Reviewed by me. Administered Medications: 05:27 Drug: Solu-CORTEF IVP 100 mg IVP once Route: IVP; Site: right antecubital; al5 07:03 Follow up: Response: No adverse reaction al5 05:28 Drug: Cefepime IVPB 2 grams IVPB at 200 ml/hr once over 30 mins; (mix in NS 100 mL) al5 Route: IVPB; Rate: 200 ml/hr; Infused Over: 30 mins; Site: right antecubital; 05:58 Follow up: Response: No adverse reaction; IV Status: Completed infusion; IV Intake: al5 100ml 05:44 Drug: Ibuprofen PO 800 mg PO once Route: PO; al5 07:04 Follow up: Response: No adverse reaction; Temperature is decreased al5 05:44 Drug: Acetaminophen PO 1000 mg PO once Route: PO; al5 07:02 Follow up: Response: No adverse reaction; Temperature is decreased al5 05:50 Drug: Albumin IVPB 25 grams 100 ml IVPB once; (Note: Albumin 25% concentration) Volume: al5 100 ml; Route: IVPB; Site: left jugular; 07:03 Follow up: Response: No adverse reaction; IV Status: Completed infusion; IV Intake: al5 100ml 05:58 Drug: Ondansetron IVP 4 mg IVP once; over 2 minutes Route: IVP; Site: right antecubital;al5 07:04 Follow up: Response: No adverse reaction al5 06:00 Drug: Albuterol Inhalation 2.5 mg Inhalation once Route: Inhalation; al5 07:03 Follow up: Response: No adverse reaction al5 06:00 Drug: Ipratropium Inhalation Aerosol 0.5 mg Inhalation once Route: Inhalation; al5 07:03 Follow up: Response: No adverse reaction al5 06:02 Drug: vancoMYCIN IVPB 2 grams IVPB at calculated rate once Route: IVPB; Rate: al5 calculated rate; Site: left jugular; 08:00 Follow up: Response: No adverse reaction; IV Status: Completed infusion ph 06:03 Drug: NS 0.9% IV (30 ml/kg) 30 ml/kg IV at bolus once; Sepsis Protocol; to be given as al5 a bolus over 90 minutes Route: IV; Rate: bolus; Site: left jugular; 14:43 Follow up: Response: No adverse reaction; IV Status: Completed infusion ph 06:07 Not Given (Hemodynamic Parameters): norepinephrine0.1 mcg/kg/min IV at calculated rate al5 See Administration Instructions; (Standard concentration 4 mg / 250 mL D5W); Recommended max rate 3 mcg/kg/min; Titrate 0.05 mcg/kg/min as often as every 5 minutes to achieve goal (see titration policy); Goal parameter MAP greater than 65 mmHg. 06:09 Not Given (Other Intervention Used): acetaminophensuppository 650 mg MS once al5 Disposition Summary: 02/22/25 08:22 Hospitalization Ordered Notes: Hospitalization Status: Inpatient Admission gb1 Provider: Baidoo, Chandler gb1 Condition: Fair gb1 Problem: new gb1 Symptoms: have worsened gb1 Bed/Room Type: Standard gb1 Location: Telemetry/MedSurg (Inpatient)(02/22/25 17:42) bd Room Assignment: 430(02/22/25 17:42) bd Diagnosis - Osteomyelitis, unspecified gb1 - UTI/ Urinary tract infection, site not specified gb1 Forms: - Medication Reconciliation Form gb1 - SBAR form gb1 - Leadership Thank You Letter gb1 Critical care time excluding procedures: 04:29 Critical care time: Bedside Care: 36 minutes, Consultation: 12 minutes, Family sp4 Intervention: 12 minutes. Total time: 60 minutes Signatures: Dispatcher [employer] EDMS Tiffany Brown Shelby, RN RN ss Víctor Rivas, FOREPART RASPER-C FOREPART RASPER-Cla1 Kp Lopez MD MD sp4 Kimberly Davies MD MD gb1 Adriana Ray RN RN al5 Yana Rosenbaum RN ph Corrections: (The following items were deleted from the chart) 03:45 03:45 BLOOD CULTURE*+BA.LAB.BRZ ordered. EDMS EDMS 03:45 03:45 CBC+H.LAB.BRZ ordered. EDMS EDMS 03:45 03:45 COMPREHENSIVE METABOLIC PANEL+C.LAB.BRZ ordered. EDMS EDMS 03:45 03:45 LACTATE+C.LAB.BRZ ordered. EDMS EDMS 03:46 03:45 PROTIME (+INR)+COAG.LAB.BRZ ordered. EDMS EDMS 03:46 03:45 PTT, ACTIVATED+COAG.LAB.BRZ ordered. EDMS EDMS 03:46 03:45 Urinalysis+U.LAB.BRZ ordered. EDMS EDMS 03:46 03:46 Arterial Blood Gas+RC.LAB.BRZ ordered. EDMS EDMS 03:46 03:46 Head Brain Wo Cont+CT.RAD.BRZ ordered. EDMS EDMS 06:02 03:47 PROBNP+C.LAB.BRZ ordered. EDMS EDMS 06:02 03:47 C-REACTIVE PROTEIN+C.LAB.BRZ ordered. EDMS EDMS 06:02 03:47 THYROID STIMULAT HORMONE+C.LAB.BRZ ordered. EDMS EDMS 06:02 03:47 T4 FREE+C.LAB.BRZ ordered. EDMS EDMS 06:11 03:45 Accucheck ordered. sp4 al5 : 08:22 Telemetry/MedSurg (Inpatient) 1 ss : 08:22 [facility] ss 17: 15:29 [facility] ER HOLD ss bd : 15: ERHOLD- ss bd
[2025-02-22] MEDS ORDERED: ACETAMINOPHEN 325 MG TABLET PO PRN (10:19)
[2025-02-22] MEDS: NA CHLORIDE 0.9% 1,000 ML IV SCH (12:32)
[2025-02-22] MEDS: INSULIN REGULAR (HUMAN) 100 UNIT/ML SQ SCH (12:32)
[2025-02-22] MEDS ORDERED: NA CHLORIDE 0.9% 1,000 ML ONE (12:34)
--- NOTE | 2025-02-22 12:59 | P.HP ---
Certification for Inpatient Patient admitted to: Inpatient With expected LOS: >2 Midnights Patient will require the following post-hospital care: None Practitioner: I am a practitioner with admitting privileges, knowledge of patient current condition, hospital course, and medical plan of care. Services: Services provided to patient in accordance with Admission requirements found in Title 42 Section 412.3 of the Code of Federal Regulations Patient History Date of Service: 02/22/25 Reason for admission: Sepsis, pneumonia History of Present Illness: 59-year-old male with history of diabetes mellitus type 2, chronic wounds, right AKA, hyperlipidemia, CHF, neuropathy presents to the emergency department with chief complaint of fever for the last 2 days. He is currently cared for by his at home, has home health that comes out 3 times a week. He is bedbound has a chronic indwelling Mendoza catheter, wound VAC for sacral wound, colostomy in place. Patient was evaluated in the emergency department his labs were significant for a white blood cell count of 18.6 hemoglobin 7.1 hematocrit 24 sodium 131 chloride 95 troponin 113.3 CRP 133 BNP 4612 alk phos 198 urine with 500 leuk esterase, 20-50 white blood cells negative for COVID flu. CT chest abdomen pelvis was performed which showed left lower lobe and to lesser extent right lower lobe consolidation concerning for pneumonia. Worsening appearance of the sacral decubitus ulcer which extends from the sacrum where there is bony destruction that now extends to the ischium as well progressive osteomyelitis suspected. Patient started on broad-spectrum antibiotics, will be admitted for further evaluation management of sepsis, pneumonia, sacral/ischial osteomyelitis. Discussed CODE STATUS with family, DNR/DNI okay with vasopressors. Allergies No Known Drug Allergies Allergy (Verified 03/24/23 00:07) Unknown Home Medications: Amoxicillin/Potassium Clav [Amox-Clav 875-125 mg Tablet] 1 tab PO BID 07/30/24 Doxycycline Hyclate 1 tab PO Q12H 07/30/24 Hydrocodone 10/APAP 325 [[place] [id number]*] 1 tab PO Q6HP PRN 07/30/24 Meropenem-0.9% Sodium Chloride [Meropenem-0.9% NaCl 1 Gram/50] 1 gm IV Q12HR #500 ml 08/04/24 - Past Medical/Surgical History Diabetic: Yes -: IDDM -: Lymphedema -: Morbid Obesity -: Kidney stones -: severe neuropathy -: Hypertension -: Hyperlipidemia -: CHF -: Sacral wound -: Chronic Mendoza -: Rt AKA -: Colostomy Psychosocial/ Personal History: Lives at home with his , has home health - Social History Alcohol use: No CD- Drugs: No Caffeine use: No Place of Residence: Home Review of Systems 10-point ROS is otherwise unremarkable General: Fever, Chills Physical Examination - Vital Signs Temperature: 98.7 F Blood Pressure: 108/64 Respirations: 17 Pulse Ox (%): 94 - Physical Exam General: Alert, In no apparent distress, Oriented x3 HEENT: Atraumatic, PERRLA Neck: Supple, 2+ carotid pulse no bruit, No LAD Respiratory: Diminished Cardiovascular: Regular rate/rhythm, Normal S1 S2 Gastrointestinal: Normal bowel sounds, No tenderness, Other (Colostomy in place) Musculoskeletal: Other (Right AKA) Integumentary: No rashes, Other (Sacral decubitus ulceration present with wound VAC in place, wound margins clean) Neurological: Normal speech, Normal strength at 5/5 x4 extr Urinary: Mendoza catheter - Studies Laboratory Data (last 24 hrs) 02/22/25 02/22/25 02/22/25 05:23 05:23 05:23 WBC 18.60 H Hgb 7.1 L Hct 24.0 L Plt Count 233 PT 15.2 H INR 1.35 APTT 24.5 L Sodium 131 L Potassium 3.7 BUN 34 H Creatinine 0.59 L Glucose 153 H Total Bilirubin 0.5 AST 19 ALT 33 Alkaline Phosphatase 198 H Assessment and Plan - Plan Assessment: Sepsis secondary to bilateral pneumonia Sacral decubitus ulceration with wound VAC in place, underlying osteomyelitis of sacrum/ischium Colostomy/chronic Mendoza catheter in place Diabetes mellitus type 2insulin-dependent Elevated troponin Chronic diastolic congestive heart failure Hypertension Hyperlipidemia Neuropathy Plan: Sepsis secondary to bilateral pneumonia Sacral decubitus ulceration with wound VAC in place, underlying osteomyelitis of sacrum/ischium Colostomy/chronic Mendoza catheter in place Blood cultures, urine cultures ordered and pending Blood pressure stabilized after IV fluids On broad-spectrum antibiotics, does have a history of ESBL infections General Surgery consulted Diabetes mellitus type 2insulin-dependent ACHS Accu-Chek, sliding scale insulin Elevated troponin Chronic diastolic congestive heart failure Does not appear grossly overloaded Will trend troponins and monitor on telemetry Hypertension Blood pressure soft, hold oral antihypertensives for now Hyperlipidemia Neuropathy Continue home medications when verified DVT PPX: Lovenox Code status: Full Discharge Plan: Home Plan to discharge in: Greater than 2 days - Advance Directives Does patient have a Living Will: No Does patient have a Durable POA for Healthcare: No - Code Status/Comfort Care Code Status Assessed: Yes (DNR/DNI) Critical Care: No Time Spent Managing Pts Care (In Minutes): 72
[2025-02-22] MEDS ORDERED: VANCOMYCIN 500 MG/VIAL ONE (13:33)
[2025-02-22] MEDS ORDERED: NA CHLORIDE 0.9% 500 ML ONE (13:33)
[2025-02-22] MEDS ORDERED: Meropenem 1000 MG/VIAL IV ONE (16:31)
[2025-02-22] MEDS: Meropenem 1,000 MG in NA CHLORIDE 0.9% 100 ML IV SCH (17:00)
[2025-02-22] MEDS ORDERED: VANCOMYCIN 2 GM in NA CHLORIDE 0.9% 500 ML IVPB SCH (17:00)
[2025-02-22] MEDS ORDERED: VANCOMYCIN 1 GM in NA CHLORIDE 0.9% 250 ML IVPB SCH (19:00)
--- NOTE | 2025-02-22 21:09 | P.CNS ---
Date of Consult: 02/22/25 Reason for consult: sepsis, PNA HPI: 59-year-old male with history of prolonged immobility, diabetes mellitus type 2, sacral decubitus with wound vac, right AKA, hyperlipidemia, CHF, neuropathy presents to the emergency department with chief complaint of fever for the last 2 days. Pt is seen in the ER with . He is bedbound and has a chronic indwelling Mendoza catheter, wound VAC for sacral wound, and colostomy bag. CT chest abdomen pelvis showed left lower lobe and to lesser extent right lower lobe consolidation concerning for pneumonia. Worsening appearance of the sacral decubitus ulcer which extends from the sacrum where there is bony destruction that now extends to the ischium as well. Progressive osteomyelitis suspected. Allergies No Known Drug Allergies Allergy (Verified 03/24/23 00:07) Unknown - Past Medical/Surgical History Diabetic: Yes -: IDDM -: Lymphedema -: Morbid Obesity -: Kidney stones -: severe neuropathy -: Hypertension -: Hyperlipidemia -: CHF -: Sacral wound -: Chronic Mendoza -: Rt AKA -: Colostomy Psychosocial/ Personal History: Lives at home with his , has home health - Social History Alcohol use: No CD- Drugs: No Caffeine use: No Place of Residence: Home Review of Systems 10-point ROS is otherwise unremarkable. Pt is martiniquais speaking but can understand some omani. General: Fever, Chills Objective Temp Pulse Resp BP Pulse Ox 97.3 F 70 18 133/59 L 94 02/22/25 16:00 02/22/25 16:00 02/22/25 16:00 02/22/25 16:00 02/22/25 12:59 - Physical Exam General: Alert, In no apparent distress\ HEENT: Atraumatic, PERRLA Neck: Supple, 2+ carotid pulse no bruit, No LAD Respiratory: Diminished. Cardiovascular: Regular rate/rhythm, Normal S1 S2 Gastrointestinal: Normal bowel sounds, Rounded, Distended, NT. Colostomy seen. Musculoskeletal: Other (Right AKA). Integumentary: Sacral decubitus with wound VAC in place Neurological: Normal speech, aox3 Urinary: Mendoza catheter - Studies Laboratory Data (last 24 hrs) 02/22/25 02/22/25 02/22/25 05:23 05:23 05:23 WBC 18.60 H Hgb 7.1 L Hct 24.0 L Plt Count 233 PT 15.2 H INR 1.35 APTT 24.5 L Sodium 131 L Potassium 3.7 BUN 34 H Creatinine 0.59 L Glucose 153 H Total Bilirubin 0.5 AST 19 ALT 33 Alkaline Phosphatase 198 H albumin 2.3 Assessment and Planning 1. Bilateral PNA 2. Sacral decubitus with wound vac, possible OM 3. Leukocytosis 4. Anemia 5. Pyuria 6. Moderate Protein Calories Malnourishment 7. DM 2 8. Chronic diastolic congestive heart failure Continue empiric abx vancomycin and meropenem. pending Blood and urine cultures monitor wbc and fever trend General Surgery pending will continue to monitor pt as needed thank you for the consult case discussed and in agreement with Dr Day
[2025-02-22 22:58] VITALS: BMI 36.6
[2025-02-23] MEDS: VANCOMYCIN 2 GM in NA CHLORIDE 0.9% 500 ML IVPB SCH ×2 (02:00→18:12)
[2025-02-23] MEDS: VANCOMYCIN 500 MG/VIAL ONE (04:00)
[2025-02-23] MEDS: VANCOMYCIN 1 GM/VIAL ONE (04:22)
[2025-02-23] MEDS: NA CHLORIDE 0.9% 500 ML ONE (04:23)
[2025-02-23 05:16] LABS: Anion Gap 5.7 mEq/L (5.0-15.0); BUN Blood Urea Nitrogen 25 mg/dL (7-18); Bicarbonate 32 mEq/L (21-32); Ferritin 66.8 ng/mL (26-388); Glomerular Filtration Rate 140 ml/min (=/>90); Glucose Level 113 mg/dL (74-106); Potassium 3.7 mEq/L (3.5-5.1); Sodium Level 139 mEq/L (136-145); Transferrin 179 mg/dL (200-360)
[2025-02-23 05:18] LABS: Iron < 10.0 ug/dL (65-175)
[2025-02-23] MEDS: HYDROCODONE/APAP 10/325 TAB PO PRN (06:24)
[2025-02-23 06:40] LABS: Absolute Monocytes 0.3 K/uL (0.1-1.3); Absolute Neutrophil 6.8 K/uL (1.8-8.0); Basophils % 0.2 % (0-1.3); Eosinophils % 0.5 % (0-4.4); Hematocrit 22.9 % (39.6-49.0); Hemoglobin 6.7 g/dL (13.6-17.9); Lymphocytes % 12.3 % (15.3-44.8); MCH 19.4 pg (27.0-35.0); MCHC 29.2 g/dL (32.0-36.0); MCV 66.2 fL (80-100); MPV 9.1 fL (7.6-11.3); Nucleated Red Blood Cells % 0.1 % (0-0); Platelets 224 thou/uL (152-406); RBC Red Blood Cell Count 3.46 M/uL (4.33-5.43); Red Cell Distribution Width 19.6 % (12.1-15.2)
[2025-02-23] MEDS ORDERED: NA CHLORIDE 0.9% 250 ML IV SCH (08:00)
--- NOTE | 2025-02-23 09:19 | P.PN ---
Date of Service: 02/23/25 Subjective: No acute events overnight Hemoglobin dropped to 6.7 Patient clinically appears to be improving ROS: 10 point ROS as noted above, otherwise negative Physical exam GEN: Alert, oriented, NAD HEENT: Normal conjunctiva, sclera anicteric CV: Regular rate and rhythm, no edema Pulm: Nonlabored respirations on room air ABD: Soft, nontender, nondistended MSK: No joint tenderness Integumentary: No rashes Neuro: Normal speech, normal affect Vitals reviewed Assessment: Sepsis secondary to bilateral pneumonia Sacral decubitus ulceration with wound VAC in place, underlying osteomyelitis of sacrum/ischium Colostomy/chronic Mendoza catheter in place Iron deficiency anemia Diabetes mellitus type 2insulin-dependent Elevated troponin Chronic diastolic congestive heart failure Hypertension Hyperlipidemia Neuropathy Plan: Sepsis secondary to bilateral pneumonia Sacral decubitus ulceration with wound VAC in place, underlying osteomyelitis of sacrum/ischium Colostomy/chronic Mendoza catheter in place Blood cultures, urine cultures ordered and pending Blood pressure stabilized after IV fluids On broad-spectrum antibiotics, does have a history of ESBL infections General Surgery consulted Iron deficiency anemia Hemoglobin 6.7 this morning will transfuse 1 unit PRBC Iron level less than 10 Consider iron infusions during stay Diabetes mellitus type 2insulin-dependent ACHS Accu-Chek, sliding scale insulin Elevated troponin Chronic diastolic congestive heart failure Does not appear grossly overloaded Will trend troponins and monitor on telemetry Hypertension Blood pressure soft, hold oral antihypertensives for now Hyperlipidemia Neuropathy Continue home medications when verified DVT PPX: Lovenox Code status: Full Discharge Plan: Home Plan to discharge in: Greater than 2 days Time Spent Managing Pts Care (In Minutes): 35
[2025-02-23] MEDS: ENOXAPARIN 40 MG/0.4 ML SQ SCH (09:30)
--- NOTE | 2025-02-23 11:57 | EKG ---
Test Date: 2025-02-22 Test Time: 04:26:46 Production Control Planner: MATTI MEASUREMENT RESULTS: Intervals: Rate: 110 PA: 172 QRSD: 100 QT: 338 QTc: 457 [place]: P: 12 PA: 172 QRS: -17 T: 75 INTERPRETIVE STATEMENTS: Sinus tachycardia Otherwise normal ECG No previous ECG available for comparison Electronically Signed On 02-23-25 11:53:35 CDT by Jeremy Hernandez
[2025-02-23] MEDS ORDERED: D10W 125 ML IV PRN (15:57)
[2025-02-23] MEDS ORDERED: GLUCAGON 1 MG/VIAL IM PRN (15:57)
[2025-02-23] MEDS: JUVEN PACKET PO SCH (21:01)
[2025-02-23] MEDS: PREGABALIN 75 MG CAP PO SCH (22:49)
--- NOTE | 2025-02-23 23:15 | PN ---
Subjective: The patient is lying in bed, seen with the help of a nurse. The patient denies any othe r discomfort. Objective: Vital Signs: Temperature 97, pulse 72, respirations 17, blood pressure 115/61. Lungs: Basal crackles. Heart: S1, S2. Regular. Abdomen: Soft, nontender. Bowel sounds present. Colostomy bag in place. Wound VAC in place. Extremities: Trace edema. Laboratory Data: WBC 8.2, hemoglobin 6.7, platelets are 224. BUN of 25, creatinine 0.2. Assessment And Plan: 1. Bilateral pneumonitis with sepsis. 2. Sacral decubitus stage IV with underlying osteomyelitis, currently on wound VAC. 3. Colostomy in place. 4. Diabetes mellitus. 5. Chronic on acute anemia. 6. Leukocytosis, improved. 7. Moderate protein-calorie malnourishment. Continue supportive care and current antibiotic. We will follow the patient as needed. NF/MODL Voice ID: [id number] Report ID: [id number]
[2025-02-24 06:40] LABS: Absolute Eosinophils 0.1 K/uL (0-0.5); Absolute Lymphocytes (CBC) 0.9 K/uL (0.7-4.9); Absolute Monocytes 0.3 K/uL (0.1-1.3); Absolute Neutrophil 5.2 K/uL (1.8-8.0); Basophils % 0.4 % (0-1.3); Eosinophils % 1.7 % (0-4.4); Hematocrit 24.9 % (39.6-49.0); Hemoglobin 7.3 g/dL (13.6-17.9); Lymphocytes % 14.1 % (15.3-44.8); MCH 19.8 pg (27.0-35.0); MCHC 29.4 g/dL (32.0-36.0); MCV 67.3 fL (80-100); MPV 8.9 fL (7.6-11.3); Neutrophils % 79.8 % (41.7-73.7); Nucleated Red Blood Cells % 0.1 % (0-0); Platelets 207 thou/uL (152-406); RBC Red Blood Cell Count 3.69 M/uL (4.33-5.43); Red Cell Distribution Width 20.1 % (12.1-15.2)
[2025-02-24 06:52] LABS: Anion Gap 6.6 mEq/L (5.0-15.0); BUN Blood Urea Nitrogen 22 mg/dL (7-18); Bicarbonate 31 mEq/L (21-32); Glucose Level 105 mg/dL (74-106); Potassium 3.6 mEq/L (3.5-5.1); Sodium Level 139 mEq/L (136-145)
[2025-02-24 06:53] LABS: Glomerular Filtration Rate 145 ml/min (=/>90)
[2025-02-24] MEDS ORDERED: NA CHLORIDE 0.9% 250 ML IV SCH (10:00)
--- NOTE | 2025-02-24 10:37 | P.PN ---
Date of Service: 02/24/25 Subjective: No acute events overnight Patient clinically appears to be improving Noted to have some generalized edema Plan for surgical debridement of sacral wound today ROS: 10 point ROS as noted above, otherwise negative Physical exam GEN: Alert, oriented, NAD, anasarca present HEENT: Normal conjunctiva, sclera anicteric CV: Regular rate and rhythm, no edema Pulm: Nonlabored respirations on room air ABD: Soft, nontender, nondistended, colostomy in place, Mendoza catheter in place MSK: No joint tenderness Integumentary: Sacral wound with wound VAC in place Neuro: Normal speech, normal affect Vitals reviewed Assessment: Sepsis secondary to bilateral pneumonia Sacral decubitus ulceration with wound VAC in place, underlying osteomyelitis of sacrum/ischium Colostomy/chronic Mendoza catheter in place Iron deficiency anemia Diabetes mellitus type 2insulin-dependent Elevated troponin Chronic diastolic congestive heart failure Hypertension Hyperlipidemia Neuropathy Plan: Sepsis secondary to bilateral pneumonia Sacral decubitus ulceration with wound VAC in place, underlying osteomyelitis of sacrum/ischium Colostomy/chronic Mendoza catheter in place Blood cultures with no growth in 24 hours, urine cultures ordered and pending Blood pressure stabilized after IV fluids On broad-spectrum antibiotics, does have a history of ESBL infections General Surgery consulted-plan for possible debridement today Iron deficiency anemia Transfused 1 unit on 02/23 Anesthesia requesting additional unit of blood before surgery which is ordered Iron level less than 10 Consider iron infusions during stay Diabetes mellitus type 2insulin-dependent ACHS Accu-Chek, sliding scale insulin Elevated troponin Chronic diastolic congestive heart failure Monitor on telemetry Hypertension Blood pressure soft, hold oral antihypertensives for now Hyperlipidemia Neuropathy Continue home medications when verified DVT PPX: Lovenox Code status: Full Discharge Plan: Home Plan to discharge in: Greater than 2 days Time Spent Managing Pts Care (In Minutes): 35
[2025-02-24] MEDS: FUROSEMIDE 40 MG/4 ML VIAL IV ONE (11:05)
[2025-02-24] MEDS ORDERED: propofoL 200 MG/20 ML VIAL IV ONE (14:06)
[2025-02-24] MEDS ORDERED: MIDAZOLAM HCL 2 MG/2 ML INJ ONE (14:06)
[2025-02-24] MEDS ORDERED: LIDOCAINE 2% MPF 5 ML VIAL ONE (14:06)
[2025-02-24] MEDS ORDERED: FENTANYL CITR 100 MCG/2 ML ONE (14:06)
[2025-02-24] MEDS ORDERED: ONDANSETRON 4 MG/2 ML VIAL ONE (14:06)
[2025-02-24] MEDS: SILVER SULFADIAZINE 1% 25 GM TOP ONE (15:08)
--- NOTE | 2025-02-24 15:16 | P.BOP ---
Preoperative diagnosis: sepsis, Stage 4 sacral decubitus ulcer Primary procedure: EXcisional subQ debridement Stage 4 sacral decubitus ulcer 15 x 9 x 7 cm Secondary procedure: Pulse lavage Estimated blood loss: <10cc Specimen: none Findings: as above Anesthesia: MAC Drain(s): Other (silvadene wet to dry) Transferred to: Recovery Room Condition: Good
[2025-02-24] MEDS: BUPIVACAINE 0.5% PF 10 ML VIAL ONE (15:37)
[2025-02-24] MEDS: HYDROMORPHONE HCL 1 MG/ML INJ ONE (15:50)
--- NOTE | 2025-02-24 16:31 | CON ---
Date of Consultation: 02/22/2025 History Of Present Illness: This is a case of a 59-year-old patient who comes to us with multiple me dical problems, found to have also a decubitus ulcer on the sacrum. We know him from long time ago. He has been followed by the assisted living wound care management. We have not seen him in my offic e or the Wound Center in a long time. They have been using some wound VAC. He comes here with sever al factors and may indicate sepsis and I was asked to evaluate the wound and clean it. The patient h as been trying to move, offload that area as much as he can, although he is a little bit heavy with a right above-knee amputation making it difficult to be mobile. He has history of Mendoza catheters. H istory of neuropathy, congestive heart failure. The patient was admitted with a working diagnosis of sepsis, pneumonia, sacral osteomyelitis, possible and a surgical consult was obtained. Allergies: NONE. Medications: Include Augmentin, hydrocodone, meropenem. Medical History: Morbid obesity, kidney stones, lymphedema, insulin-dependent diabetes, peripheral v ascular disease, hypertension, hyperlipidemia, congestive heart failure. Past Surgical History: Include chronic sacral wounds, right below-knee amputation, history of divert ing colostomy. He does not smoke. He does not drink alcohol. Family History: Noncontributory. Review of Systems: No shortness of breath. No chest pain. No abdominal pain. Ten points otherwise unremarkable. Physical Examination: Vital Signs: Reviewed. Patient is awake, alert, oriented x3. He is very pleasant. Pupils are equa l and reactive. Anicteric. Neck: Supple. Chest: Clear. Heart: S1, S2. Abdomen: Soft and depressible. Skin: The patient has a wound VAC. The periwound area does not look with an abscess, although the u lcer shows some fibrin. I cannot rule out a social infection, although we should be looking at other sources as well. The patient has history of amputation of the right leg. Laboratory Data: Blood work shows a WBC count of 18.6 with hemoglobin of 7.1, and platelets of 233. Sodium is 131, glucose 153. Assessment: This is a 59-year-old patient with decubitus ulcer on the sacrum. The benefits, alterna tives, and risks of debridement fully explained, which include, but not limited to infection, bleedin g, damage to adjacent structures, anesthesia complication, nonhealing wound, OK and even . He a lso understands the importance of losing weight, frequent turning. We might hold the wound VAC until we clarify this wound and then if possible continue to rule out osteomyelitis. CAR/EVERARDO Voice ID: [id number] Report ID: [id number]
[2025-02-24] MEDS: HYDROCODONE/APAP 10/325 TAB PO PRN (19:58)
--- NOTE | 2025-02-24 22:23 | P.PN ---
Date of Service: 02/24/25 Subjective:Pt had surgical debridement of sacral wound today No acute events overnight pt denied any concern. denied problem with abx ROS: 10 point ROS reviewed and negative unless staed in hpi Physical exam GEN: Alert, oriented, NAD, anasarca present HEENT: PERRLA CV: RRR Pulm: Basal crackles ABD: Soft,round, nontender, nondistended, colostomy in place Urinary: Mendoza catheter in place MSK: Right AKA Integumentary: Sacral wound with wound VAC in place Neuro: Normal speech, normal affect, alert and oriented x 3 Temp Pulse Resp BP Pulse Ox 97.9 F 70 18 113/56 L 97 02/24/25 19:42 02/24/25 19:42 02/24/25 19:58 02/24/25 19:42 02/24/25 19:58 Microbiology 02/22/25 06:03 Catheterized Urine [place] Count - Preliminary No growth. 02/22/25 06:03 Catheterized Urine - Preliminary No growth. 02/22/25 05:23 Blood - Blood Aerobic Blood Culture - Preliminary No growth in 24 hours. 02/22/25 05:23 Blood - Blood Anaerobic Blood Culture - Final Labs: WBC 6.5, platelet 207, BUN 22, cr <0.25 Assessment: 1. Sepsis secondary to bilateral pneumonia 2. Sacral decubitus stage IV with underlying osteomyelitis, s/p debridement 02/24/25 3. Colostomy/chronic Mendoza catheter in place 4. Anemia 5. Leukocytosis, improved 6. Chronic diastolic congestive heart failure 7. DM2 blood culture negative. Continue empiric abx vancomycin and meropenem for a total of 6 weeks. monitor wbc and fever trend wound and supportive care will continue to monitor pt as needed case discussed and in agreement with Dr Day
[2025-02-24 22:31] LABS: Hematocrit 26.7 % (39.6-49.0); Hemoglobin 8.2 g/dL (13.6-17.9)
--- NOTE | 2025-02-25 00:30 | OP ---
Date of Procedure: 02/24/2025 Surgeon: Shay Ambrose MD Preoperative Diagnoses: Sepsis, stage IV sacral decubitus ulcer. Postoperative Diagnoses: Sepsis, stage IV sacral decubitus ulcer. Procedure: Excisional subcutaneous debridement of stage IV infected sacral decubitus ulcer, 15 x 9 x 7 cm with pulsed lavage. Estimated Blood Loss: Less than 10 cc. Specimens: None. Anesthesia: MAC plus local. Packing: Wet-to-dry with Silvadene. Indications: This is a case of a 59-year-old patient with long-term history of sacral decubitus ulce r. He is morbidly obese, kind of a large person, doing great actually comparing to the past, but sti ll came with sepsis, foul smelling from the sacral ulcer, so I was asked to take a look at the area, debride, and clean. The benefits, alternatives, and risks of excisional debridement of a sacral decu bitus ulcer was fully explained, which include, but not limited to infection, bleeding, damage to adj acent structures, anesthesia complication, recurrence, MD, and even . He also understands this may not relieve the symptoms. He might need more than one surgical intervention. He understood and signed a consent. He understands the importance of losing weight, frequent turning, and dressing sammie nges. He is welcome to the followup at the W[facility]aling Center once he gets discharged or follow up with his primary doctor. Description Of Procedure: The patient was brought to the operating room, placed in supine position. Anesthesia was done without complication. The patient was placed in lateral decubitus position with proper protection. The previous dressings were removed. We noticed the wound VAC is not allowing o ne of the areas to drain properly, which is the deepest part of the wound itself. The sponges on top are not being packed inside and that somehow is creating a bottleneck effect. So, once we removed t hat, we proceeded to remove the devitalized tissue with a combination of a curette and 11 blade after injecting local anesthetic and after doing a time-out. Then, after that, we irrigated with at least 2 L of pulsed lavage irrigation to the entire wound. Then, we covered the area with Silvadene and s terile dressings. The patient tolerated the procedure well. The patient on his way to Recovery in s table condition. HM/MODL Voice ID: [id number] Report ID: [id number]
[2025-02-25 05:14] LABS: Absolute Eosinophils 0.1 K/uL (0-0.5); Absolute Lymphocytes (CBC) 0.8 K/uL (0.7-4.9); Absolute Monocytes 0.4 K/uL (0.1-1.3); Absolute Neutrophil 6.6 K/uL (1.8-8.0); Basophils % 0.3 % (0-1.3); Eosinophils % 1.3 % (0-4.4); Hemoglobin 8.4 g/dL (13.6-17.9); Lymphocytes % 10.6 % (15.3-44.8); MCH 21.2 pg (27.0-35.0); MCHC 31.2 g/dL (32.0-36.0); MCV 68.1 fL (80-100); MPV 9.2 fL (7.6-11.3); Monocytes % 4.8 % (3.3-12.3); Nucleated Red Blood Cells % 0.2 % (0-0); Platelets 240 thou/uL (152-406); RBC Red Blood Cell Count 3.97 M/uL (4.33-5.43); Red Cell Distribution Width 21.7 % (12.1-15.2)
[2025-02-25 05:28] LABS: Anion Gap 2.3 mEq/L (5.0-15.0); BUN Blood Urea Nitrogen 18 mg/dL (7-18); Bicarbonate 39 mEq/L (21-32); Glucose Level 102 mg/dL (74-106); Potassium 3.3 mEq/L (3.5-5.1); Sodium Level 139 mEq/L (136-145)
[2025-02-25 05:34] LABS: Glomerular Filtration Rate 145 ml/min (=/>90)
[2025-02-25 06:23] LABS: Anisocytosis 1+; Blood Morphology Comment NOTED (NOT SEEN); Hypochromasia 1+; Microcytosis 1+; Platelet Estimate ADEQ; Polychromasia 1+; White Blood Cell Scan OK (OK)
[2025-02-25] MEDS: MORPHINE 2 MG/ML SYR IV PRN (08:09)
[2025-02-25] MEDS: POTASSIUM CL SA 10 MEQ TAB PO ONE (08:10)
--- NOTE | 2025-02-25 09:55 | P.PN ---
Date of Service: 02/25/25 Subjective: Status post debridement of sacral wound yesterday Complains of back pain today No other acute complaints or events overnight ROS: 10 point ROS as noted above, otherwise negative Physical exam GEN: Alert, oriented, NAD, anasarca present HEENT: Normal conjunctiva, sclera anicteric CV: Regular rate and rhythm, anasarca present Pulm: Nonlabored respirations on room air ABD: Soft, nontender, nondistended, colostomy in place, Mendoza catheter in place MSK: No joint tenderness Integumentary: Sacral wound with wound dressing in place Neuro: Normal speech, normal affect Vitals reviewed Assessment: Sepsis secondary to bilateral pneumonia Sacral decubitus ulceration with wound VAC in place, underlying osteomyelitis of sacrum/ischium Colostomy/chronic Mendoza catheter in place Iron deficiency anemia Diabetes mellitus type 2insulin-dependent Elevated troponin Chronic diastolic congestive heart failure Hypertension Hyperlipidemia Neuropathy Plan: Sepsis secondary to bilateral pneumonia Sacral decubitus ulceration with wound VAC in place, underlying osteomyelitis of sacrum/ischium Colostomy/chronic Mendoza catheter in place Blood cultures with no growth in 24 hours, urine cultures with no growth Blood pressure stabilized after IV fluids-fluids discontinued On broad-spectrum antibiotics, does have a history of ESBL infections Status post debridement with general surgery Wound care per general surgery with Carlitos Mcqueen daily dressing changes Started on IV Lasix for anasarca after IV fluids and blood transfusions Iron deficiency anemia Transfused 1 unit on 02/23 and 1 unit on 02/24 Anesthesia requesting additional unit of blood before surgery which is ordered Iron level less than 10 Consider iron infusions during stay Diabetes mellitus type 2insulin-dependent ACHS Accu-Chek, sliding scale insulin Elevated troponin Chronic diastolic congestive heart failure Monitor on telemetry Hypertension Blood pressure soft, hold oral antihypertensives for now Hyperlipidemia Neuropathy Continue home medications when verified DVT PPX: Lovenox Code status: Full Discharge Plan: Home Plan to discharge in: Greater than 2 days Time Spent Managing Pts Care (In Minutes): 35
[2025-02-25] MEDS: FUROSEMIDE 40 MG/4 ML VIAL IV SCH (10:13)
--- NOTE | 2025-02-25 13:50 | PN ---
Subjective: Status post debridement of the sacral stage IV ulcer. Patient is doing great. No compl aints. Objective: Vital Signs: Stable. Chest: Clear. Abdomen: Soft and depressible. Intact surgical site. Plan: Whenever the Medical Service believes he is cleared from medical service, then he can go home because he is cleared from the surgical standpoint. Just follow up at his Wound Care wherever he is going at this moment. He has a wound VAC. At this moment, we are going to hold the wound VAC until at least a day or 2 or even a week. If he has no followup as an outpatient with anybody else, we frances l be happy to see him at our Wound Healing Centers we have here at [facility] at Thursday mornings and [facility] at Thursday afternoons, whatever is his wish. CAR/EVERARDO Voice ID: [id number] Report ID: [id number]
[2025-02-25] MEDS ORDERED: VANCOMYCIN 2 GM in NA CHLORIDE 0.9% 500 ML IVPB SCH (17:00)
[2025-02-25] MEDS: VANCOMYCIN 2 GM in NA CHLORIDE 0.9% 500 ML IVPB SCH (21:00)
[2025-02-26 06:26] LABS: Absolute Eosinophils 0.2 K/uL (0-0.5); Absolute Lymphocytes (CBC) 1.5 K/uL (0.7-4.9); Absolute Monocytes 0.3 K/uL (0.1-1.3); Absolute Neutrophil 4.8 K/uL (1.8-8.0); Basophils % 0.7 % (0-1.3); Hemoglobin 8.6 g/dL (13.6-17.9); Lymphocytes % 21.6 % (15.3-44.8); MCH 20.9 pg (27.0-35.0); MCHC 30.8 g/dL (32.0-36.0); MCV 67.8 fL (80-100); MPV 9.3 fL (7.6-11.3); Monocytes % 4.6 % (3.3-12.3); Neutrophils % 70.1 % (41.7-73.7); Nucleated Red Blood Cells % 0.2 % (0-0); Platelets 248 thou/uL (152-406); RBC Red Blood Cell Count 4.13 M/uL (4.33-5.43); Red Cell Distribution Width 22.4 % (12.1-15.2)
[2025-02-26 06:43] LABS: Anion Gap 3.3 mEq/L (5.0-15.0); Potassium 3.3 mEq/L (3.5-5.1)
[2025-02-26] MEDS: PNEUMOCOCCAL VACCINE 0.5 ML IMVAC ONE (08:00)
--- NOTE | 2025-02-26 10:00 | P.PN ---
Date of Service: 02/26/25 Subjective: Status post debridement of sacral wound Complains of back pain No other acute complaints or events overnight ROS: 10 point ROS as noted above, otherwise negative Physical exam GEN: Alert, oriented, NAD, anasarca present HEENT: Normal conjunctiva, sclera anicteric CV: Regular rate and rhythm, anasarca present Pulm: Nonlabored respirations on room air ABD: Soft, nontender, nondistended, colostomy in place, Mendoza catheter in place MSK: No joint tenderness Integumentary: Sacral wound with wound dressing in place Neuro: Normal speech, normal affect Vitals reviewed Assessment: Sepsis secondary to bilateral pneumonia Sacral decubitus ulceration with wound VAC in place, underlying osteomyelitis of sacrum/ischium Colostomy/chronic Mendoza catheter in place Iron deficiency anemia Diabetes mellitus type 2insulin-dependent Elevated troponin Chronic diastolic congestive heart failure Hypertension Hyperlipidemia Neuropathy Plan: Sepsis secondary to bilateral pneumonia Sacral decubitus ulceration with wound VAC in place, underlying osteomyelitis of sacrum/ischium Colostomy/chronic Mendoza catheter in place Blood cultures with no growth in 24 hours, urine cultures with no growth Blood pressure stabilized after IV fluids-fluids discontinued On broad-spectrum antibiotics, does have a history of ESBL infections Status post debridement with general surgery Wound care per general surgery with Carlitos Mcqueen daily dressing changes Started on IV Lasix for anasarca after IV fluids and blood transfusions Discussed further recommendations for antibiotics with infectious disease, may need PICC line and prolonged IV antibiotics Iron deficiency anemia Transfused 1 unit on 02/23 and 1 unit on 02/24 Total 2 units PRBCs transfused thus far monitor CBC daily Iron level less than 10 Consider iron infusions during stay Diabetes mellitus type 2insulin-dependent ACHS Accu-Chek, sliding scale insulin Elevated troponin Chronic diastolic congestive heart failure Monitor on telemetry Hypertension Blood pressure soft, hold oral antihypertensives for now Hyperlipidemia Neuropathy Continue home medications when verified DVT PPX: Lovenox Code status: Full Discharge Plan: Home Plan to discharge in: Greater than 2 days Time Spent Managing Pts Care (In Minutes): 35
[2025-02-26] MEDS: Mupirocin NASAL 2 APPL/1 GM TUBE NAS SCH (19:54)
--- NOTE | 2025-02-26 21:58 | RAD REPORT ---
EXAMINATION: ONE VIEW CHEST XR CLINICAL INDICATION: PICC TECHNIQUE: Frontal chest projection is submitted. Examination is limited by patient positioning and t echnique. COMPARISON: 02/22/2025 FINDINGS: Left-sided PICC line has tip in SVC. Left internal jugular catheter also has its tip in the SVC. Lung s are underinflated resulting in vascular crowding. Mild atelectasis seen in left lung base. Heart is mildly enlarged in size.
[2025-02-27 05:12] LABS: Absolute Eosinophils 0.3 K/uL (0-0.5); Absolute Lymphocytes (CBC) 1.8 K/uL (0.7-4.9); Absolute Monocytes 0.5 K/uL (0.1-1.3); Absolute Neutrophil 5.8 K/uL (1.8-8.0); Basophils % 0.5 % (0-1.3); Eosinophils % 3.2 % (0-4.4); Hematocrit 28.3 % (39.6-49.0); Hemoglobin 8.8 g/dL (13.6-17.9); Lymphocytes % 21.4 % (15.3-44.8); MCV 67.8 fL (80-100); MPV 9.4 fL (7.6-11.3); Monocytes % 5.5 % (3.3-12.3); Neutrophils % 69.4 % (41.7-73.7); Nucleated Red Blood Cells % 0.1 % (0-0); Platelets 273 thou/uL (152-406); RBC Red Blood Cell Count 4.18 M/uL (4.33-5.43); Red Cell Distribution Width 22.4 % (12.1-15.2)
[2025-02-27 05:23] LABS: Anion Gap 5.3 mEq/L (5.0-15.0); Potassium 3.3 mEq/L (3.5-5.1)
[2025-02-27] MEDS: POTASSIUM 25 MEQ EFFERV TAB PO ONE (05:38)
[2025-02-27] MEDS: SILVER SULFADIAZINE 1% 50 GM TOP SCH (09:12)
--- NOTE | 2025-02-27 15:42 | P.PN ---
Date of Service: 02/27/25 Subjective: No acute events overnight Working on arranging for outpatient IV antibiotics PICC line in place ROS: 10 point ROS as noted above, otherwise negative Physical exam GEN: Alert, oriented, NAD, anasarca present HEENT: Normal conjunctiva, sclera anicteric CV: Regular rate and rhythm, anasarca present Pulm: Nonlabored respirations on room air ABD: Soft, nontender, nondistended, colostomy in place, Mendoza catheter in place MSK: No joint tenderness Integumentary: Sacral wound with wound dressing in place Neuro: Normal speech, normal affect Vitals reviewed Assessment: Sepsis secondary to bilateral pneumonia Sacral decubitus ulceration with wound VAC in place, underlying osteomyelitis of sacrum/ischium Colostomy/chronic Mendoza catheter in place Iron deficiency anemia Diabetes mellitus type 2insulin-dependent Elevated troponin Chronic diastolic congestive heart failure Hypertension Hyperlipidemia Neuropathy Plan: Sepsis secondary to bilateral pneumonia Sacral decubitus ulceration with wound VAC in place, underlying osteomyelitis of sacrum/ischium Colostomy/chronic Mendoza catheter in place Blood cultures with no growth in 24 hours, urine cultures with no growth Blood pressure stabilized after IV fluids-fluids discontinued On broad-spectrum antibiotics, does have a history of ESBL infections Status post debridement with general surgery Wound care per general surgery with Kerlix roll, Santyl daily dressing changes General surgery has ordered for wound VAC at this time Continue antibiotics vancomycin/Merrem or Invanz outpatient Patient currently assessing cost for Invanz, would needed dose before discharge if he is approved for Invanz If too expensive could consider doing Merrem although the frequency would be higher because may be cheaper Iron deficiency anemia Transfused 1 unit on 02/23 and 1 unit on 02/24 Total 2 units PRBCs transfused thus far monitor CBC daily Iron level less than 10 Started on p.o. iron Will need to continue at discharge Diabetes mellitus type 2insulin-dependent ACHS Accu-Chek, sliding scale insulin Elevated troponin Chronic diastolic congestive heart failure Monitor on telemetry Hypertension Blood pressure soft, hold oral antihypertensives for now Hyperlipidemia Neuropathy Continue home medications when verified DVT PPX: Lovenox Code status: Full Discharge Plan: Home Plan to discharge in: Greater than 2 days Time Spent Managing Pts Care (In Minutes): 35
--- NOTE | 2025-02-27 15:54 | P.PN ---
Date of Service: 02/27/25 Subjective: No acute events overnight pt denied any concern. denied problem with abx ROS: 10 point ROS reviewed and negative unless stated in hpi Physical exam GEN: Alert, oriented, NAD, morbid obese. anasarca present HEENT: PERRLA CV: RRR Pulm: Basal crackles ABD: Soft,round, nontender, nondistended, colostomy in place Urinary: Mendoza catheter in place MSK: Right AKA Integumentary: Sacral wound stage IV with wound VAC in place Neuro: Normal speech, normal affect, alert and oriented x 3 Temp Pulse Resp BP Pulse Ox 98.2 F 95 H 15 107/55 L 93 02/27/25 12:00 02/27/25 14:01 02/27/25 15:06 02/27/25 14:01 02/27/25 15:06 Microbiology 02/22/25 06:03 Catheterized Urine [place] Count - Preliminary No growth. 02/22/25 06:03 Catheterized Urine - Preliminary No growth. 02/22/25 05:23 Blood - Blood Aerobic Blood Culture - Preliminary No growth in 24 hours. 02/22/25 05:23 Blood - Blood Anaerobic Blood Culture - Final Labs: WBC 8.83, platelet 273, BUN 28, cr 31 Assessment: 1. Sepsis secondary to bilateral pneumonia 2. Sacral decubitus stage IV with underlying osteomyelitis, s/p debridement 02/24/25 3. Colostomy/chronic Mendoza catheter in place 4. Anemia 5. Leukocytosis, improved 6. Chronic diastolic congestive heart failure 7. DM2 blood culture negative. Continue empiric abx vancomycin and meropenem for a total of 6 weeks. monitor wbc and fever trend wound and supportive care No wound culture order after debridement. pending wound culture today will continue to monitor pt as needed case discussed and in agreement with Dr Day
[2025-02-27] MEDS: FERROUS GLUCONATE 324 MG TAB PO SCH (20:16)
[2025-02-28 04:50] LABS: Absolute Basophils 0.1 K/uL (0-0.5); Absolute Eosinophils 0.3 K/uL (0-0.5); Absolute Lymphocytes (CBC) 1.9 K/uL (0.7-4.9); Absolute Monocytes 0.4 K/uL (0.1-1.3); Absolute Neutrophil 4.4 K/uL (1.8-8.0); Basophils % 1.3 % (0-1.3); Eosinophils % 3.9 % (0-4.4); Hematocrit 28.1 % (39.6-49.0); Hemoglobin 8.7 g/dL (13.6-17.9); Lymphocytes % 26.5 % (15.3-44.8); MCH 21.2 pg (27.0-35.0); MPV 9.3 fL (7.6-11.3); Monocytes % 5.8 % (3.3-12.3); Neutrophils % 62.5 % (41.7-73.7); Nucleated Red Blood Cells % 0.2 % (0-0); Platelets 234 thou/uL (152-406); RBC Red Blood Cell Count 4.11 M/uL (4.33-5.43); Red Cell Distribution Width 22.7 % (12.1-15.2)
[2025-02-28 04:55] LABS: MCV 68.4 fL (80-100)
[2025-02-28 05:19] LABS: Anion Gap 2.8 mEq/L (5.0-15.0); Potassium 3.8 mEq/L (3.5-5.1)
[2025-02-28] MEDS: POTASSIUM 25 MEQ EFFERV TAB PO ONE (09:40)
[2025-02-28] MEDS ORDERED: ERTAPENEM SODIUM 1 GM VIAL IVPB SCH (13:00)
[2025-02-28 13:14] VITALS: O2SAT 95
[2025-02-28] MEDS: ERTAPENEM NA 1 GM in NA CHLORIDE 0.9% 100 ML IVPB ONE (15:43)
[2025-02-28] MEDS: VANCOMYCIN 2 GM in NA CHLORIDE 0.9% 500 ML IVPB SCH (15:43)
--- NOTE | 2025-02-28 16:07 | P.DS ---
Admission Date: 02/22/25 Discharge Date: 02/28/25 Disposition: DC HOME/HOME HEALTH CARE Discharge Condition: FAIR Reason for Admission: Sepsis, pneumonia Vital Signs/Physical Exam: Temp Pulse Resp BP Pulse Ox 98.1 F 78 18 105/47 L 97 02/28/25 12:00 02/28/25 12:00 02/28/25 12:00 02/28/25 12:00 02/28/25 12:00 Laboratory Data at Discharge: WBC 7.00 thou/uL (4.3-10.9) 02/28/25 04:35 Hgb 8.7 g/dL (13.6-17.9) L 02/28/25 04:35 Hct 28.1 % (39.6-49.0) L 02/28/25 04:35 Plt Count 234 thou/uL (152-406) 02/28/25 04:35 PT 15.2 SECONDS (10-13.0) H 02/22/25 05:23 INR 1.35 02/22/25 05:23 APTT 24.5 SECONDS (27.2-37.4) L 02/22/25 05:23 Sodium 135 mEq/L (136-145) L 02/28/25 04:35 Potassium 3.8 mEq/L (3.5-5.1) 02/28/25 04:35 BUN 30 mg/dL (7-18) H 02/28/25 04:35 Creatinine 0.27 mg/dL (0.70-1.30) L 02/28/25 04:35 Glucose 124 mg/dL (74-106) H 02/28/25 04:35 Total Bilirubin 0.5 mg/dL (0.2-1.0) 02/22/25 05:23 AST 19 U/L (15-37) 02/22/25 05:23 ALT 33 U/L (16-61) 02/22/25 05:23 Alkaline Phosphatase 198 U/L (45-117) H 02/22/25 05:23 Home Medications: Hydrocodone 10/APAP 325 [Pima 10/325*] 1 tab PO Q6HP PRN 07/30/24 Meropenem-0.9% Sodium Chloride [Meropenem-0.9% NaCl 1 Gram/50] 1 gm IV Q12HR #500 ml 08/04/24 Hydrocodone 7.5/APAP 325 [Pima 7.5/325 mg] 1 tab PO Q8H PRN #15 tab 02/28/25 Mupirocin Calcium [Bactroban Nasal*] 1 appl MOMO BID 30 Days #1 tube 02/28/25 New Medications: Mupirocin Calcium [Bactroban Nasal*] 1 appl MOMO BID 30 Days #1 tube Hydrocodone 7.5/APAP 325 [Pima 7.5/325 mg] 1 tab PO Q8H PRN #15 tab PRN Reason: Pain Physician Discharge Instructions: Patient was admitted to the hospital for severe sepsis, pneumonia, sacral decubitus ulceration, anemia. He has a chronic indwelling Mendoza catheter as well as a colostomy and a right AKA. He is cared for at home with home health. During his hospitalization he required a blood transfusion for severe iron deficiency anemia, he received 2 units of blood during his hospitalization. His hemoglobin is now stable at 8.8. His CT showed findings of sacral/ischial osteomyelitis. He underwent a debridement with general surgery on 02/24 and has been doing well postoperatively. He had 1 set of blood cultures that showed no growth, urine culture also with no growth. Infectious disease recommended 6 weeks of IV antibiotics, PICC line has been inserted and arrangements are made for patient to receive 6 weeks of IV antibiotics with vancomycin/Invanz. Blood work will be monitored outpatient while on antibiotics For his iron deficiency anemia patient will need to start taking iron supplementation at home Recommend follow-up with primary care doctor/home health doctor within 1 week Resume previous wound care management including wound VAC at discharge Diet: Regular Activity: Bedrest Followup: NONE,NONE [UNKNOWN] - 1 Week
[2025-02-28 16:51] VITALS: BP 118/55; TEMP 98
--- NOTE | 2025-02-28 19:18 | PN ---
Subjective: The patient is lying in bed, possible discharge today as patient is doing well. Objective: Vital Signs: Temperature 98, pulse 77, respirations 18, blood pressure 118/55. Lungs: Basal crackles. Heart: S1, S2. Regular. Abdomen: Soft, nontender. Bowel sounds present. Extremities: Trace edema. Laboratory Data: Shows WBC 7, hemoglobin 8.7, platelets 234. BUN of 30, creatinine 0.2. Assessment And Plan: 1. Bilateral pneumonitis with sepsis, improving. 2. 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 3. Colostomy with chronic Mendoza catheter in place. 4. Anemia of chronic disease. 5. Diabetes mellitus. 6. Leukocytosis, improved. 7. 2+ gram-negative rods from the wound culture done yesterday. The patient currently on Merrem and vancomycin will continue and will follow the patient as needed. NF/MODL Voice ID: [id number] Report ID: [id number]
== END 2025-02-28 18:32 | disposition home health service (06) | DRG 853 ==
LOC: ER 03:40 → ERHOLD 10:18 → 4TH 18:42
PROVIDERS: ADMIT Internal Medicine; ATTEND Hospitalist
PROC: 3E033XZ Introduction of Vasopressor into Peripheral Vein, Percutaneous Approach (ICD-10-PCS; 2025-02-22)
PROC: 30233N1 Transfusion of Nonautologous Red Blood Cells into Peripheral Vein, Percutaneous Approach (ICD-10-PCS; 2025-02-23)
PROC: 0JB70ZZ Excision of Back Subcutaneous Tissue and Fascia, Open Approach (ICD-10-PCS; principal; 2025-02-24 13:30)
PROC: 02HV33Z Insertion of Infusion Device into Superior Vena Cava, Percutaneous Approach (ICD-10-PCS; 2025-02-26)
DX: A41.9 Sepsis, unspecified organism (principal); J18.9 Pneumonia, unspecified organism; L89.154 Pressure ulcer of sacral region, stage 4; N39.0 Urinary tract infection, site not specified; I50.32 Chronic diastolic (congestive) heart failure; E44.0 Moderate protein-calorie malnutrition; M46.28 Osteomyelitis of vertebra, sacral and sacrococcygeal region; R65.20 Severe sepsis without septic shock; I11.0 Hypertensive heart disease with heart failure; E11.69 Type 2 diabetes mellitus with other specified complication; E11.40 Type 2 diabetes mellitus with diabetic neuropathy, unspecified; E78.00 Pure hypercholesterolemia, unspecified; D50.9 Iron deficiency anemia, unspecified; E66.01 Morbid (severe) obesity due to excess calories; R33.9 Retention of urine, unspecified; R79.89 Other specified abnormal findings of blood chemistry; Z66 Do not resuscitate; Z93.3 Colostomy status; Z74.01 Bed confinement status; Z68.36 Body mass index [BMI] 36.0-36.9, adult; Z11.52 Encounter for screening for COVID-19; Z86.73 Personal history of transient ischemic attack (TIA), and cerebral infarction without residual deficits; Z89.611 Acquired absence of right leg above knee
CPT/HCPCS: 36415; 36556; 36569; 51702; 70450; 71045; 71260; 74177; 80048; 80053; 80202; 81001; 82728; 82805; 82947; 83540; 83605; 83880; 84132; 84439; 84443; 84466; 84484; 85014; 85018; 85025; 85610; 85730; 86140; 86850; 86900; 86901; 86920; 87040; 87070; 87077; 87086; 87088; 87186; 87205; 87428; 93005; 99291; 99292; J0692; J1171; J1335; J1650; J1720; J1938; J2003; J2185; J2250; J2270; J2405; J2704; J3010; J3370; J7030; J7040; J7050; J7613; J7644; P9016; P9047; Q9967

== ENCOUNTER 2025-03-09 13:21 | Emergency (ER) | payer OTHER ==
--- OUTSIDE RECORDS SUMMARY | 2025-03-09 13:26 | XMS REPORT | Continuity of Care Document ---
Author Name Unknown Address [address] [facility] [address] [place] [address] [facility] Address [address] [facility] [place] [address] Care Team Providers Care Supervisor Prop Making Name Role Phone Logan Lance MD Primary Care Physician Logan Lance MD Attending Clinician + [phone] NEDRA MORALES Attending Clinician Unavaila CHEMO Mcfadden Attending Clinician Unavailable ADA ROBBINS Attending Clinician Unavail able ADA ROBBINS Attending Clinician Unavail able Tania Zimmerman Yijia Attending Clinician Unavailab May Carrasquillo Anavella Attending Cli carlo Unavailable JEANNIE MILLER Attending Clinician Unavaila JULISA Maguire Attending Clinician Unavailabl e Doctor Unassigned, [place] Attending Clinician U Veronica Harris PTA Attending Clinician Unavail able Julisa Duran MD Attending Clinician [phone] Logan Lance MD Attending Clinician [phone] Donaldo Tran PT, Niyah Attending Clinician Un available LOGAN LANCE Attending Clinician KATE Sandoval Attending Clinician Unavailable Anna MARTEL, Nicolasa Ybarra Attending Clinician Unavailab evelina BRUNNER, ERICKA Admitting Clinician Unavailable Tania Zimmerman Yijia Admitting Clinician Unavailab evelina Sykes, Marianne, Anav Admitting Clinician U navailable Payers Payer Name Policy Type Policy Number Effective Date Expirati on Date Source MEDICARE PART A \T\ B [id number] 2017 00:00:00 MEDICARE PART A AND B [id number] 2017 00:00:00 [facility] [id number] Problems Condition Name Condition Details Condition Category Status Onset Date Resolution Date Last Treatment Date Treating Clinician Comments Source Chronic edema Chronic edema Disease Active 2019-10 00:00: 00 [facility] Hx of AKA (above knee amputation ), 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 ), right Disease Active 2019-10 00:00: 00 [facility] Balanitis Balanitis Problem [facility] [id number] 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 [id number] Acquired phimosis of penis Problem [facility] Leukoplaki a of penis BXO (balanitis xerotica obliterans ) Problem [facility] Allergies, Adverse Reactions, Alerts Allergy Name Allergy Type Status Severity Reaction(s) Onset Date Inactive Date Treating Clinician Comments Source NO KNOWN ALLERGIE S Drug Class Active [facility] Social History Social Habit Start Date Stop Date Quantity Comments Source History of Tobacco Use [facility] Sex Assigned At [facility] Sexual orientation U [facility] Alcohol intake 2020-06-25 00:00:00 2020-06-25 00:00:00 Ex-drinker (finding) [facility] Alcoholic beverage intake 2020-06-25 00:00:00 2020-06-25 00:00:00 Ex-drinker (finding) [facility] History of Social function 2020-03-20 00:00:00 2020-03-20 00:00:00 [facility] Tobacco use and exposure 2019-11-25 00:00:00 2019-11-25 00:00:00 Smokeless tobacco non-user [facility] Smoking Status Start Date Stop Date Source Unknown if ever smoked [facility] Former Smoker 2024-05-11 00:00:00 2024-05-11 00:00:00 [facility] Never smoked tobacco [facility] Medications Ordered Medication Name Filled Medication Name Start Date Stop Date Current Medication? Ordering Clinician Indication Dosage Frequency Signature (SIG) Comments Components Source GLIPIZIDE 10 mg tablet 2020-10 00:00: 00 Yes [id number] TAKE ONE TABLET BY MOUTH DAILY [facility] GLIPIZIDE 10 mg tablet 2020-10 0 00:00: 00 Yes [id number] TAKE ONE TABLET BY MOUTH DAILY [facility] PIOGLITAZON E 30 mg tablet 07-15 00:00: 00 Yes TAKE ONE TABLET BY MOUTH DAILY [facility] TRIAMTERENE -HYDROCHLOR OTHIAZIDE 37.5-25 mg per capsule 07-15 00:00: 00 Yes [id number] TAKE ONE CAPSULE BY MOUTH EVERY MORNING [facility] BUMETANIDE 1 mg tablet 07-15 00:00: 00 Yes [id number] TAKE ONE TABLET BY MOUTH DAILY [facility] metFORMIN 500 mg tablet 06-25 00:00: 00 Yes [id number] TAKE ONE TABLET BY MOUTH TWICE A DAY WITH MEALS [facility] ATORVASTATI N 40 mg tablet 06-13 00:00: 00 Yes TAKE ONE TABLET BY MOUTH AT BEDTIME [facility] GLIPIZIDE 10 mg tablet 06-10 00:00: 00 08-13 00:00 :00 No [id number] TAKE ONE TABLET BY MOUTH DAILY [facility] BUMETANIDE 1 mg tablet 05-21 00:00: 00 Yes [id number] TAKE ONE TABLET BY MOUTH DAILY [facility] TRIAMTERENE -HYDROCHLOR OTHIAZIDE 37.5-25 mg per capsule 05-21 00:00: 00 Yes [id number] TAKE ONE CAPSULE BY MOUTH EVERY MORNING [facility] KCL 10 mEq tablet 05-15 00:00: 00 Yes [id number] TAKE ONE TABLET BY MOUTH DAILY [facility] metFORMIN 500 mg tablet 04-15 00:00: 00 06-25 00:00 :00 No [id number] TAKE ONE TABLET BY MOUTH TWICE A DAY WITH MEALS [facility] PIOGLITAZON E 30 mg tablet 6 00:00: 00 Yes TAKE ONE TABLET BY MOUTH DAILY [facility] exenatide microsphere s (BYDUREON) 2 mg/0.65 mL injection - 00:00: 00 Yes [id number] 2mg inject 0.65 mL under the skin weekly. [facility] metFORMIN 500 mg tablet 3-30 00:00: 00 04-15 00:00 :00 No [id number] TAKE ONE TABLET BY MOUTH TWICE A DAY WITH MEALS [facility] BYDUREON 2 mg/0.65 mL injection - 00:00: 00 02-13 00:00 :00 No [facility] traMADoL 50 mg tablet -19 00:00: 00 Yes [id number] 50mg Take 1 tablet by mouth every 6 (six) hours as needed for Pain (scale 4-6). Indication s: acute pain [facility] exenatide microsphere s 2 mg injection 3-19 00:00: 00 Yes [id number] 2mg inject 2 mg under the skin every 7 (seven) days. [facility] PIOGLITAZON E 30 mg tablet 3-18 00:00: 00 04-10 00:00 :00 No TAKE ONE TABLET BY MOUTH DAILY [facility] ATORVASTATI N 40 mg tablet 3-13 00:00: 04-01 00:00 :00 No TAKE ONE TABLET BY MOUTH AT BEDTIME [facility] triamterene -hydrochlor othiazide 37.5-25 mg per capsule 12-14 00:00: 00 03-18 00:00 :00 No TAKE ONE CAPSULE BY MOUTH EVERY MORNING [facility] BUMETANIDE 1 mg tablet 2019-10 0 00:00: 02-18 00:00 :00 No [id number] TAKE ONE TABLET BY MOUTH DAILY [facility] KCL 10 mEq tablet 2019-10 0 00:00: 02-18 00:00 :00 No [id number] TAKE ONE TABLET BY MOUTH DAILY [facility] glipiZIDE 10 mg tablet 06-06 00:00: 00 06-10 00:00 :00 No [id number] 10mg Take 1 tablet by mouth daily. [facility] traMADol 50 mg tablet 12-21 00:00: 00 Yes [id number] 50mg Take 1 tablet by mouth every 6 (six) hours as needed (pain). [facility] exenatide microsphere s 2 mg injection 12-21 00:00: 00 Yes [id number] 2mg inject 2 mg under the skin every 7 (seven) days. [facility] metFORMIN 500 mg tablet 11-25 20:46: 55 Yes 500mg Take 500 mg by mouth 2 (two) times daily with meals. [facility] atorvastati n 40 mg tablet 11-25 20:46: 55 Yes 40mg Take 40 mg by mouth at bedtime. [facility] pioglitazon e 30 mg tablet 11-25 20:46: 55 Yes 30mg Take 30 mg by mouth daily. [facility] glipiZIDE 10 mg tablet 11-25 20:46: 55 Yes 10mg Take 10 mg by mouth daily. [facility] amoxicillin -clavulanat e (AUGMENTIN) 875-125 mg per tablet 11-25 00:00: 00 12-21 00:00 :00 No [id number] 1{tbl} Take 1 tablet by mouth 2 (two) times daily. [facility] sulfamethox azole-trime thoprim 800-160 mg per tablet 11-25 00:00: 00 12-21 00:00 :00 No [id number] 1{tbl} Take 1 tablet by mouth 2 (two) times daily. [facility] traMADol 50 mg tablet 11-25 00:00: 12-21 00:00 :00 No [id number] 50mg Take 1 tablet by mouth every 6 (six) hours as needed (pain). [facility] No known medications No Un senthil [facility] Furosemide 40 MG Furosemide 40 MG No [...] height 2024-02-17 13:30:00 72 [in_i] [facility] weight 2024-02-17 13:30:00 340.0 [lb_av] Co mmon [facility] temperature 2024-02-17 13:30:00 98.5 [degF] Com mon [facility] bmi 2024-02-17 13:30:00 46.11 kg/m2 [facility] oximetry 2024-02-17 13:30:00 95 % [facility] respiratory rate 2024-02-17 13:30:00 16 /min [facility] blood pressure systolic 2024-02-17 13:30:00 173 mm[Hg] [facility] blood pressure diastolic 2024-02-17 13:30:00 83 mm[Hg] [facility] Systolic blood pressure 2019-12-21 17:49:00 110 mm[Hg] [facility] Diastolic blood pressure 2019-12-21 17:49:00 41 mm[Hg] [facility] Heart rate 2019-12-21 17:49:00 79 /min [facility] Body temperature 2019-12-21 17:49:00 36.78 Yesenia [facility] Respiratory rate 2019-12-21 17:49:00 18 /min [facility] Procedures Procedure Date / Time Performed Performing Clinician Source REFERRAL- REQUEST/RESPONSE 2023-04-20 05:01:00 Doctor Unassigned, [place] [facility] ASSIGNMENT OF BENEFITS 2022-03-26 12:52:53 Docto r Unassigned, [place] [facility] REFERRAL- REQUEST/RESPONSE 2022-03-12 05:01:00 Doctor Unassigned, [place] [facility] PATIENT QUESTIONNAIRE 2019-11-22 06:01:00 Doctor Unassigned, [place] [facility] REFERRAL- REQUEST/RESPONSE 2019-11-11 06:01:00 Doctor Unassigned, [place] [facility] Encounters Start Date/Time End Date/Time Encounter Type Admission Type Attending Clinicians Care Facility Care Department Encounter ID Source 2024-04-13 11:58:00 Outpatient [id number] [id number] [facility] 2024-02-17 12:35:00 Outpatient STLMLC ST[facility] [id number] [facility] 2021-08-23 14:59:58 Emergency [facility] [id number] [facility] 2019-11-28 08:29:26 Outpatient [facility] [id number] [facility] 2021-02-13 00:00:00 2024-12-10 02:56:11 Orders Only Logan Lance [facility] OFFICE BUILDING ONE 1.2.840.114 350.1.13.10 4.2.7.2.686 [id number] [facility] 2024-07-20 22:26:00 2024-07-26 17:17:00 Inpatient NEDRA [facility] [id number] [facility] 2024-07-25 07:00:00 2024-07-25 07:00:00 Outpatient CHEMO [facility] [id number] [facility] 2024-07-21 07:00:00 2024-07-21 07:00:00 Outpatient CHEMO [facility] [id number] [facility] 2024-05-11 00:00:00 2024-05-11 00:00:00 ([place]) Nurse Visit STLMLC STLC [id number] [facility] 2024-04-08 11:00:00 2024-04-08 11:00:00 Outpatient ADA AGUIRRE HOWARD [facility] [id number] [facility] 2024-04-06 00:00:00 2024-04-06 00:00:00 (TEL) STLMLC STLMLC [id number] [facility] 2024-03-07 00:00:00 2024-03-07 00:00:00 ([place]) Nurse Visit STLMLC STLMLC [id number] [facility] 2024-02-29 00:00:00 2024-02-29 00:00:00 (TEL) STLMLC STLMLC [id number] [facility] 2024-02-23 00:00:00 2024-02-23 00:00:00 ([place]) Nurse Visit STLMLC STLMLC [id number] [facility] 2024-02-17 00:00:00 2024-02-17 00:00:00 OFFICE VISIT ESTAB PT LEVEL 3 STLMLC STLMLC [id number] [facility] 2024-01-13 18:01:00 2024-01-30 11:57:00 Inpatient 3 Tania Zimmerman E[facility] SCN [id number] [facility] 2023-11-07 22:28:00 2023-11-23 15:20:00 [facility] EULALIO [id number] [facility] 2023-06-05 08:45:00 2023-06-05 08:45:00 Outpatient R JULISA DURAN [facility] [id number] [facility] 2023-04-20 00:00:00 2023-04-20 00:00:00 Orders Only Doctor Unassigned, [place] [facility] 1.84.114 350.1.13.10 4.2.7.2.686 [id number] [facility] 2023-04-14 00:00:00 2023-04-14 00:00:00 Telephone Veronica Truong [facility] 1.840.114 350.1.13.10 4.2.7.2.686 [id number] [facility] 2022-08-21 08:00:00 2022-08-21 09:19:07 Outpatient R JULISA DURAN [facility] [id number] [facility] 2022-08-21 08:00:00 2022-08-21 09:19:07 Ancillary Visit Veronica Truong Craig L [facility] 1.2.840.114 350.1.13.10 4.2.7.2.686 [id number] [facility] 2022-08-14 08:00:00 2022-08-14 09:36:02 Ancillary Visit Veronica Truong Craig L [facility] 1.840.114 350.1.13.10 4.2.7.2.686 [id number] [facility] 2022-08-07 08:00:00 2022-08-07 09:00:00 [facility]illary [facility] 1.2.840.114 350.1.13.10 4.2.7.2.686 [id number] 179 [id number] [facility] 2022-07-17 08:00:00 2022-07-17 10:33:07 Ancillary Visit Alexi [facility] 1.2.840.114 350.1.13.10 4.2.7.2.686 [id number] [facility] 2022-07-11 08:00:00 2022-07-11 09:09:53 Ancillary Visit Veronica Truong Craig L [facility] BUILDING 1.2.840.114 350.1.13.10 4.2.7.2.686 [id number] [facility] 2022-07-09 08:00:00 2022-07-09 09:22:42 Ancillary Visit Veronica Tru[facility] 1.2.840.114 350.1.13.10 4.2.7.2.686 [id number] [facility] 2022-07-03 08:00:00 2022-07-03 09:28:51 Ancillary Visit Veronica Truong Craig L [facility] BUILDING 1.2.840.114 350.1.13.10 4.2.7.2.686 [id number] [facility] 2022-07-01 08:00:00 2022-07-01 09:42:36 Outpatient R JULISA DURAN [facility] [id number] [facility] 2022-07-01 08:00:00 2022-07-01 09:42:36 Ancillary [facility] 1.2.840.114 350.1.13.10 4.2.7.2.686 [id number] [facility] 2022-06-25 08:00:00 2022-06-25 10:05:28 Ancillary Visit Veronica Truong [facility] 1.2.840.114 350.1.13.10 4.2.7.2.686 [id number] [facility] 2022-06-20 08:00:00 2022-06-20 09:40:30 Ancillary Visit Veronica Truong DuranJulisa [facility] NAL BUILDING 1.2.840.114 350.1.13.10 4.2.7.2.686 [id number] [facility] 2022-06-18 08:00:00 2022-06-18 09:36:15 Ancillary Visit Veronica Truong Mary Julisa Jackson [facility] BUILD[facility] 1.2.840.114 350.1.13.10 4.2.7.2.686 [id number] 179 [id number] [facility] 2022-06-13 08:00:00 2022-06-13 08:45:00 Ancillary Visit Veronica Truong Julisa Guzmán [facility] NAL BUILDING 1.2.840.114 350.1.13.10 4.2.7.2.686 [id number] 179 [id number] [facility] 2022-06-10 08:45:00 2022-06-10 09:30:00 Ancillary Visit Alexi Julisa Gomez [facility] BUILDING 1.2.840.114 350.1.13.10 4.2.7.2.686 [id number] [facility] 2022-06-06 08:00:00 2022-06-06 10:23:06 Ancillary Visit Veronica Truong [facility] 1.2.840.114 350.1.13.10 4.2.7.2.686 [id number] 179 [id number] [facility] 2022-06-04 08:00:00 2022-06-04 09:29:06 Ancillary Visit Veronica Truong Craig L [facility] BUILD[facility] 1.2.840.114 350.1.13.10 4.2.7.2.686 [id number] [facility] 2022-05-30 08:00:00 2022-05-30 10:18:46 Ancillary Visit Veronica Truong Craig L [facility] BUILD[facility] 1.2.840.114 350.1.13.10 4.2.7.2.686 [id number] [facility] 2022-05-28 08:00:00 2022-05-28 10:30:25 Outpatient R JULISA DURAN [facility] [id number] [facility] 2022-05-28 08:00:00 2022-05-28 08:45:00 Ancillary Visit Veronica Truong Craig L [facility] BUILD[facility] 1.2.840.114 350.1.13.10 4.2.7.2.686 [id number] [facility] 2022-05-23 08:00:00 2022-05-23 09:06:40 Ancillary Visit Veronica Truong Craig L [facility] BUILD[facility] 1.2.840.114 350.1.13.10 4.2.7.2.686 [id number] [facility] 2022-05-09 09:30:00 2022-05-09 10:33:51 Ancillary Visit Veronica Truong Craig L [facility] BUILD[facility] 1.2.840.114 350.1.13.10 4.2.7.2.686 [id number] [facility] 2022-05-07 10:15:00 2022-05-07 11:02:32 Ancillary Visit Veronica Truong Craig L [facility] BUILD[facility] 1.2.840.114 350.1.13.10 4.2.7.2.686 [id number] [facility] 2022-05-05 00:00:00 2022-05-05 00:00:00 Logan Bergman [facility] BUILDING 1.2.840.114 350.1.13.10 4.2.7.2.686 [id number] [facility] 2022-05-05 00:00:00 2022-05-05 00:00:00 Logan Bergman [facility] BUILDING 1.2.840.114 350.1.13.10 4.2.7.2.686 [id number] [facility] 2022-04-30 08:45:00 2022-04-30 08:45:00 Outpatient R JULISA DURAN [facility] [id number] [facility] 2022-04-30 00:00:00 2022-04-30 00:00:00 Case Management Veronica Truong [facility] BUILD[facility] 1.2.840.114 350.1.13.10 4.2.7.2.686 [id number] [facility] 2022-04-24 14:30:00 2022-04-24 15:42:45 Ancillary Visit Veronica Truong Julisa Manuel [facility] 1.2.840.114 350.1.13.10 4.2.7.2.686 [id number] [facility] 2022-04-17 08:00:00 2022-04-17 09:00:00 Ancillary Visit Veronica Truong Craig L [facility] BU[facility] 1.2.840.114 350.1.13.10 4.2.7.2.686 [id number] [facility] 2022-04-11 08:00:00 2022-04-11 09:00:00 Ancillary Visit Veronica TruongonaldJulisa [facility] BUILD[facility] 1.2.840.114 350.1.13.10 4.2.7.2.686 [id number] [facility] 2022-04-09 08:00:00 2022-04-09 09:00:00 Ancillary Visit Veronica Truong Julisa Guzmán [facility] 1.2.840.114 350.1.13.10 4.2.7.2.686 [id number] [facility] 2022-04-04 08:00:00 2022-04-04 09:00:00 Ancillary Visit Alexi Julisa Gomez [facility] 1.2.840.114 350.1.13.10 4.2.7.2.686 [id number] 179 [id number] [facility] 2022-04-01 08:00:00 2022-04-01 09:00:00 Ancillary Visit Beverly TruongJulisa Infante [facility] 1.2.840.114 350.1.13.10 4.2.7.2.686 [id number] [facility] 2022-03-26 08:00:00 2022-03-26 10:37:03 Outpatient R JULISA DURAN [facility] [id number] [facility] 2022-03-26 08:00:00 2022-03-26 10:37:03 Ancillary Visit Niyah Mckeon Craig L [facility] 1.2.840.114 350.1.13.10 4.2.7.2.686 [id number] [facility] 2022-03-26 00:00:00 2022-03-26 00:00:00 Orders Only Doctor Unassigned, [place] [facility] 1.840.114 350.1.13.10 4.2.7.2.686 [id number] [facility] 2022-03-12 00:00:00 2022-03-12 00:00:00 Orders Only Doctor Unassigned, [place] [facility] 1.840.114 350.1.13.10 4.2.7.2.686 [id number] [facility] 2022-02-10 00:00:00 2022-02-10 00:00:00 Logan Bergman yoselin [facility] 1..840.114 350.1.13.10 4.2.7.2.686 [id number] [facility] 2021-11-29 00:00:00 2021-11-29 00:00:00 Logan Bergman yoselin [facility] 1.2.840.114 350.1.13.10 4.2.7.2.686 [id number] [facility] 2021-09-12 00:00:00 2021-09-12 00:00:00 Logan Bergman [facility] 1.2.840.114 350.1.13.10 4.2.7.2.686 [id number] [id number] [facility] 2021-08-19 00:00:00 2021-08-19 00:00:00 [facility] Building 1.2.840.114 350.1.13.10 4.2.7.2.686 [id number] [facility] 2021-08-13 00:00:00 2021-08-13 00:00:00 Vita Lance [facility] Building 1.2.840.114 350.1.13.10 4.2.7.2.686 [id number] [facility] 2021-07-13 00:00:00 2021-07-13 00:00:00 Logan Bergman [facility] Building 1.2.840.114 350.1.13.10 4.2.7.2.686 [id number] [id number] [facility] 2021-06-24 00:00:00 2021-06-24 00:00:00 [facility] 1.2.840.114 350.1.13.10 4.2.7.2.686 [id number] [facility] 2020-09-05 10:15:00 2020-09-05 10:15:00 Outpatient LOGAN HESTER [facility] [id number] [facility] 2020-06-25 11:40:00 2020-06-25 11:40:00 Outpatient KATE GOMEZ [facility] [id number] [facility] 2020-06-06 15:45:00 2020-06-06 15:45:00 Outpatient LOGAN HESTER [facility] [id number] [facility] 2020-05-09 16:15:00 2020-05-09 16:15:00 Outpatient LOGAN HESTER [facility] [id number] [facility] 2020-03-20 09:15:00 2020-03-20 09:15:00 Outpatient LOGAN HESTER [facility] [id number] [facility] 2020-01-25 11:00:00 2020-01-25 11:00:00 Outpatient Arleth JULISA DURAN [facility] [id number] [facility] 2019-12-29 09:20:00 2019-12-29 09:20:00 Outpatient JULISA AREVALO [facility] [id number] [facility] 2019-12-21 11:42:25 2019-12-21 11:57:25 [facility] 1.840.114 350.1.13.10 4.2.7.2.686 [id number] [facility] 2019-12-21 11:30:00 2019-12-21 11:30:00 Outpatient LOGAN HESTER [facility] [id number] [facility] 2019-12-20 09:00:00 2019-12-20 09:00:00 Outpatient R [facility] [id number] [facility] 2019-12-16 10:07:00 2019-12-16 11:07:00 Ancillary Visit Veronica Truong Craig L [facility] Building 1..840.114 350.1.13.10 4.2.7.2.686 [id number] [facility] 2019-12-14 09:52:14 2019-12-14 10:52:14 Ancillary Visit Veronica Truong Craig L [facility] Building 1..840.114 350.1.13.10 4.2.7.2.686 [id number] [facility] 2019-12-09 08:52:58 2019-12-09 10:16:26 Ancillary Visit Veronica Truong [facility] 1.2.840.114 350.1.13.10 4.2.7.2.686 [id number] [facility] 2019-12-07 08:58:57 2019-12-07 09:58:57 Ancillary Visit Veronica Tru[facility] 1.2.840.114 350.1.13.10 4.2.7.2.686 [id number] 179 [id number] [facility] 2019-12-02 08:47:35 2019-12-02 09:47:35 Ancillary Visit Veronica Truong Craig L [facility] nal Building 1.2.840.114 350.1.13.10 4.2.7.2.686 [id number] [facility] 2019-11-18 09:11:00 2019-11-30 12:53:31 Ancillary Visit Nicolasa Castillo Craig L [facility] nal Building 1.2.840.114 350.1.13.10 4.2.7.2.686 [id number] 179 [id number] [facility] 2019-11-30 08:42:50 2019-11-30 09:42:50 Ancillary Visit Veronica Truong Craig L [facility] nal Building 1.2.840.114 350.1.13.10 4.2.7.2.686 [id number] [facility] 2019-11-24 08:48:05 2019-11-24 15:06:52 Ancillary Visit Veronica Truong Craig L [facility] [id number] 350.1.13.10 [id number] [id number] 179 [id number] [facility] 2019-11-22 08:37:05 2019-11-22 11:36:52 Ancillary Visit Veronica Truong Craig L [facility] [id number] [id number] [id number] [id number] [facility] 2019-11-22 00:00:00 2019-11-22 00:00:00 Orders Only Doctor Unassigned, [place] [facility] 1.2840.114 350.1.13.10 4.2.7.2.686 [id number] 009 [id number] [facility] 2019-11-11 00:00:00 2019-11-11 00:00:00 Orders Only Doctor Unassigned, [place] [facility] 1.2840.114 350.1.13.10 4.2.7.2.686 [id number] 009 [id number] [facility] 2019-10-30 03:07:00 2019-10-30 15:15:00 Inpatient E [facility] [address] [facility] Results Test Description Test Time Test Comments Results Result Co mments Source [facility]FF[facility]PLT[facility]2024-01-29 11:38:00* Test Item Value Reference Range Interpretation Comme nts WHITE BLOOD CELL COUNT (test code = 08035805) 5.8 Thousand/uL 3.8-10.8 N RED BLOOD CELL COUNT (test code = 76251217) 4.66 Million/uL 4.20-5.80 N HEMOGLOBIN (test code = 95978347) 11.5 g/dL 13.2-17.1 L HEMATOCRIT (test code = 98281169) 38.1 % 38.5-50.0 L MCV (test code = 75844769) 81.8 fL 80.0-100.0 N MCH (test code = 08534614) 24.7 pg 27.0-33.0 L MCHC (test code = 92555557) 30.2 g/dL 32.0-36.0 L RDW (test code = 56531450) 15.4 % 11.0-15.0 H PLATELET COUNT (test code = 69862584) 141 Thousand/uL 140-400 N MPV (test code = 81964846) fL 7.5-12.5 N Due to platelet or RBC variability in size or shapethe result cannot be reported accurately. ABSOLUTE NEUTROPHILS (test code = 98395041) 3695 cells/uL 9911-7909 N ABSOLUTE LYMPHOCYTES (test code = 24542815) 1630 cells/uL 850-3900 N ABSOLUTE MONOCYTES (test code = 54114000) 220 cells/uL 200-950 N ABSOLUTE EOSINOPHILS (test code = 63896015) 226 cells/uL 15-500 N ABSOLUTE BASOPHILS (test code = 79259902) 29 cells/uL 0-200 N NEUTROPHILS (test code = 04636312) 63.7 % N LYMPHOCYTES (test code = 54946314) 28.1 % N MONOCYTES (test code = 35587930) 3.8 % N EOSINOPHILS (test code = 25698440) 3.9 % N BASOPHILS (test code = 49034538) 0.5 % N [facility] MET [id number] 13:55:00* Test Item Value Reference Range Interpretation Comme nts GLUCOSE (test code = 76850602) 147 mg/dL 65-99 H Fasting referenc e interval For someone without known diabetes, a glucosevalue >125 mg/dL indicates that they may havediabetes and this should be confirmed with afollow-up test. UREA NITROGEN (BUN) (test code = 82785502) 12 mg/dL 7-25 N CREATININE (test code = 88905888) 0.46 mg/dL 0.70-1.30 L EGFR (test code = 33644406) 121 mL/min/1.73m2 >=60 N BUN/CREATININE RATIO (test code = 91665022) 26 (calc) 6-22 H SODIUM (test code = 69122546) 136 mmol/L 135-146 N POTASSIUM (test code = 14590826) 3.9 mmol/L 3.5-5.3 N CHLORIDE (test code = 33479258) 99 mmol/L 98-110 N CARBON DIOXIDE (test code = 92383844) 28 mmol/L 20-32 N CALCIUM (test code = 42817870) 8.9 mg/dL 8.6-10.3 N [facility] HOSPITALCBC (DIFF/PLT)2024-01-19 13:55:00* Test Item Value Reference Range Interpretation Comme nts WHITE BLOOD CELL COUNT (test code = 97951686) 6.8 Thousand/uL 3.8-10.8 N RED BLOOD CELL COUNT (test code = 81857180) 4.73 Million/uL 4.20-5.80 N HEMOGLOBIN (test code = 44186680) 11.7 g/dL 13.2-17.1 L HEMATOCRIT (test code = 96293100) 38.0 % 38.5-50.0 L MCV (test code = 72046179) 80.3 fL 80.0-100.0 N MCH (test code = 58929602) 24.7 pg 27.0-33.0 L MCHC (test code = 87667089) 30.8 g/dL 32.0-36.0 L RDW (test code = 98644336) 15.3 % 11.0-15.0 H PLATELET COUNT (test code = 74414119) 141 Thousand/uL 140-400 N MPV (test code = 73621419) fL 7.5-12.5 N Due to platelet or RBC variability in size or shapethe result cannot be reported accurately. ABSOLUTE NEUTROPHILS (test code = 46648116) 5005 cells/uL 7643-0809 N ABSOLUTE LYMPHOCYTES (test code = 54630056) 1251 cells/uL 850-3900 N ABSOLUTE MONOCYTES (test code = 75779984) 272 cells/uL 200-950 N ABSOLUTE EOSINOPHILS (test code = 31085856) 252 cells/uL 15-500 N ABSOLUTE BASOPHILS (test code = 83530570) 20 cells/uL 0-200 N NEUTROPHILS (test code = 62571349) 73.6 % N LYMPHOCYTES (test code = 68610679) 18.4 % N MONOCYTES (test code = 24263163) 4.0 % N EOSINOPHILS (test code = 96802640) 3.7 % N BASOPHILS (test code = 93191924) 0.3 % N [facility] [id number] 18:17:00* Test Item Value Reference Range Interpretation Comments HEMOGLOBIN A1c (test code = 88968711) 7.0 % of total Hgb <5.7 H For someone without known diabetes, a hemoglobin U6lyiipw of 6.5% or greater indicates that they [...] 09/07/23, a change in test platforms from [employer] to the Kathy viviane c503 may have [id number] results compared to historical results.[facility] the Kathy platform relative to the Ali had an average increase in HbA1c value of< or = 0.3%. This difference is within accepted variability established by the National GlycohemoglobinStandardization Program. Note that not all individualswill have had a shift in their results and directcomparisons between historical and current results fortesting conducted on different platforms is notrecommended. [facility] [id number] 15:13:00* Test Item Value Reference Range Interpretation Comme nts GLUCOSE (test code = 40114807) 132 mg/dL 65-99 H Fasting referenc e interval For someone without known diabetes, a glucosevalue >125 mg/dL indicates that they may havediabetes and this should be confirmed with afollow-up test. UREA NITROGEN (BUN) (test code = 60855992) 9 mg/dL 7-25 N CREATININE (test code = 63832892) 0.47 mg/dL 0.70-1.30 L EGFR (test code = 23919828) 120 mL/min/1.73m2 >=60 N BUN/CREATININE RATIO (test code = 30190687) 19 (calc) 6-22 N SODIUM (test code = 25642327) 140 mmol/L 135-146 N POTASSIUM (test code = 91215925) 4.1 mmol/L 3.5-5.3 N CHLORIDE (test code = 97435490) 101 mmol/L 98-110 N CARBON DIOXIDE (test code = 75364034) 31 mmol/L 20-32 N CALCIUM (test code = 61844843) 9.2 mg/dL 8.6-10.3 N PROTEIN, TOTAL (test code = 98405877) 6.6 g/dL 6.1-8.1 N ALBUMIN (test code = 46564451) 3.5 g/dL 3.6-5.1 L GLOBULIN (test code = 67449664) 3.1 g/dL (calc) 1.9-3.7 N ALBUMIN/GLOBULIN RATIO (test code = 81329437) 1.1 (calc) 1.0-2.5 N BILIRUBIN, TOTAL (test code = 02120739) 0.8 mg/dL 0.2-1.2 N ALKALINE PHOSPHATASE (test code = 68986809) 107 U/L 35-144 N AST (test code = 91674493) 10 U/L 10-35 N ALT (test code = 62435087) 15 U/L 9-46 N [facility] (DIFF/PLT)2024-01-14 15:13:00* Test Item Value Reference Range Interpretation Comme nts WHITE BLOOD CELL COUNT (test code = 71387682) 6.9 Thousand/uL 3.8-10.8 N RED BLOOD CELL COUNT (test code = 18647551) 4.47 Million/uL 4.20-5.80 N HEMOGLOBIN (test code = 70080229) 10.9 g/dL 13.2-17.1 L HEMATOCRIT (test code = 95009764) 35.5 % 38.5-50.0 L MCV (test code = 57994361) 79.4 fL 80.0-100.0 L MCH (test code = 66206443) 24.4 pg 27.0-33.0 L MCHC (test code = 27727448) 30.7 g/dL 32.0-36.0 L RDW (test code = 84041793) 14.8 % 11.0-15.0 N PLATELET COUNT (test code = 17750133) 141 Thousand/uL 140-400 N MPV (test code = 11422561) 13.2 fL 7.5-12.5 H ABSOLUTE NEUTROPHILS (test code = 90769985) 4837 cells/uL 4530-3769 N ABSOLUTE LYMPHOCYTES (test code = 07687217) 1559 cells/uL 850-3900 N ABSOLUTE MONOCYTES (test cod e = 74039826) 290 cells/uL 200-950 N ABSOLUTE EOSINOPHILS (test code = 32494186) 193 cells/uL 15-500 N ABSOLUTE BASOPHILS (test cod e = 19640697) 21 cells/uL 0-200 N NEUTROPHILS (test code = 79184174) 70.1 % N LYMPHOCYTES (test code = 31580536) 22.6 % N MONOCYTES (test code = 68137390) 4.2 % N EOSINOPHILS (test code = 91172371) 2.8 % N BASOPHILS (test code = 66771208) 0.3 % N [facility] TIME WITH [id number] 11:00:00* Test Item Value Reference Range Interpretation Comme nts INR (test code = 47911731) 1.1 N Reference Range 0.9-1.1Moderate-intensity Warfarin Therapy 2.0-3.0Higher-intensity Warfarin Therapy 3.0-4.0 PT (test code = 41066728) 11.9 sec 9.0-11.5 H For additional information, please refer [email or web address] (This link is being provided for informational/educational purposes only.) [facility] HOSPITALBASIC MET [id number] 14:10:00* Test Item Value Reference Range Interpretation Comme nts GLUCOSE (test code = 32611902) 120 mg/dL 65-99 H Fasting referenc e interval For someone without known diabetes, a glucose valuebetween 100 and 125 mg/dL is consistent withprediabetes and should be confirmed with afollow-up test. UREA NITROGEN (BUN) (test code = 02638573) 24 mg/dL 7-25 N CREATININE (test code = 78578492) 0.73 mg/dL 0.70-1.30 N EGFR (test code = 78167169) 105 mL/min/1.73m2 >=60 N BUN/CREATININE RATIO (test code = 04218460) SEE NOTE: (calc) 6-22 N Not Reported: BUN an d Creatinine are within reference range. SODIUM (test code = 21318845) 138 mmol/L 135-146 N POTASSIUM (test code = 55745286) 4.3 mmol/L 3.5-5.3 N CHLORIDE (test code = 14891467) 101 mmol/L 98-110 N CARBON DIOXIDE (test code = 00087129) 27 mmol/L 20-32 N CALCIUM (test code = 99224597) 8.7 mg/dL 8.6-10.3 N [facility] HOSPITALCB (DIFF/PLT)2023-11-19 14:10:00* Test Item Value Reference Range Interpretation Comme nts WHITE BLOOD CELL COUNT (test code = 88185772) 7.3 Thousand/uL 3.8-10.8 N RED BLOOD CELL COUNT (test code = 96213971) 4.24 Million/uL 4.20-5.80 N HEMOGLOBIN (test code = 25524178) 10.3 g/dL 13.2-17.1 L HEMATOCRIT (test code = 00312686) 34.0 % 38.5-50.0 L MCV (test code = 39785275) 80.2 fL 80.0-100.0 N MCH (test code = 32578900) 24.3 pg 27.0-33.0 L MCHC (test code = 09158303) 30.3 g/dL 32.0-36.0 L RDW (test code = 61921020) 14.5 % 11.0-15.0 N PLATELET COUNT (test code = 04128965) 166 Thousand/uL 140-400 N MPV (test code = 41930021) fL 7.5-12.5 N Due to platelet or RBC variability in size or shapethe result cannot be reported accurately. ABSOLUTE NEUTROPHILS (test code = 42195069) 5015 cells/uL 7553-7549 N ABSOLUTE LYMPHOCYTES (test code = 25882694) 1657 cells/uL 850-3900 N ABSOLUTE MONOCYTES (test code = 49567374) 321 cells/uL 200-950 N ABSOLUTE EOSINOPHILS (test code = 28160835) 277 cells/uL 15-500 N ABSOLUTE BASOPHILS (test code = 65516136) 29 cells/uL 0-200 N NEUTROPHILS (test code = 40556502) 68.7 % N LYMPHOCYTES (test code = 90101625) 22.7 % N MONOCYTES (test code = 81457285) 4.4 % N EOSINOPHILS (test code = 48854656) 3.8 % N BASOPHILS (test code = 06632431) 0.4 % N [facility] [id number] 13:21:00* Test Item Value Reference Range Interpretation Comme nts GLUCOSE (test code = 68743800) 77 mg/dL 65-99 N Fasting referenc e interval UREA NITROGEN (BUN) (test code = 03731686) 15 mg/dL 7-25 N CREATININE (test code = 63299181) 0.79 mg/dL 0.70-1.30 N EGFR (test code = 56805806) 103 mL/min/1.73m2 >=60 N BUN/CREATININE RATIO (test code = 09880580) SEE NOTE: (calc) 6-22 N Not Reported: BUN and Creatinine are within reference range. SODIUM (test code = 65058679) 138 mmol/L 135-146 N POTASSIUM (test code = 10320512) 4.2 mmol/L 3.5-5.3 N CHLORIDE (test code = 17543337) 101 mmol/L 98-110 N CARBON DIOXIDE (test code = 38989146) 28 mmol/L 20-32 N CALCIUM (test code = 72803002) 8.9 mg/dL 8.6-10.3 N [facility] (DIFF/PLT)2023-11-16 13:21:00* Test Item Value Reference Range Interpretation Comme nts WHITE BLOOD CELL COUNT (test code = 64669401) 7.1 Thousand/uL 3.8-10.8 N RED BLOOD CELL COUNT (test code = 52616695) 4.30 Million/uL 4.20-5.80 N HEMOGLOBIN (test code = 15868244) 10.4 g/dL 13.2-17.1 L HEMATOCRIT (test code = 10799768) 34.6 % 38.5-50.0 L MCV (test code = 99515857) 80.5 fL 80.0-100.0 N MCH (test code = 54412009) 24.2 pg 27.0-33.0 L MCHC (test code = 33838298) 30.1 g/dL 32.0-36.0 L RDW (test code = 45273354) 14.5 % 11.0-15.0 N PLATELET COUNT (test code = 49090842) 154 Thousand/uL 140-400 N MPV (test code = 24821885) fL 7.5-12.5 N Due to platelet or RBC variability in size or shapethe result cannot be reported accurately. ABSOLUTE NEUTROPHILS (test code = 34199622) 4665 cells/uL 5827-9871 N ABSOLUTE LYMPHOCYTES (test code = 61488488) 1818 cells/uL 850-3900 N ABSOLUTE MONOCYTES (test code = 03190780) 320 cells/uL 200-950 N ABSOLUTE EOSINOPHILS (test code = 07471270) 270 cells/uL 15-500 N ABSOLUTE BASOPHILS (test code = 52798574) 28 cells/uL 0-200 N NEUTROPHILS (test code = 88126218) 65.7 % N LYMPHOCYTES (test code = 42413227) 25.6 % N MONOCYTES (test code = 00857703) 4.5 % N EOSINOPHILS (test code = 52955540) 3.8 % N BASOPHILS (test code = 75883540) 0.4 % N [facility] HOSPITALBASI MET [id number] 12:29:00* Test Item Value Reference Range Interpretation Comme nts GLUCOSE (test code = 54557494) 103 mg/dL 65-99 H Fasting referenc e interval For someone without known diabetes, a glucose valuebetween 100 and 125 mg/dL is consistent withprediabetes and should be confirmed with afollow-up test. UREA NITROGEN (BUN) (test code = 33441404) 17 mg/dL 7-25 N CREATININE (test code = 19507922) 0.93 mg/dL 0.70-1.30 N EGFR (test code = 49744989) 95 mL/min/1.73m2 >=60 N BUN/CREATININE RATIO (test code = 34258259) SEE NOTE: (calc) 6-22 N Not Reported: BUN an d Creatinine are within reference range. SODIUM (test code = 75722883) 139 mmol/L 135-146 N POTASSIUM (test code = 28888339) 4.4 mmol/L 3.5-5.3 N CHLORIDE (test code = 56635904) 104 mmol/L 98-110 N CARBON DIOXIDE (test code = 63653493) 27 mmol/L 20-32 N CALCIUM (test code = 68215315) 8.3 mg/dL 8.6-10.3 L [facility] (DIFF/PLT)2023-11-12 12:29:00* Test Item Value Reference Range Interpretation Comme nts WHITE BLOOD CELL COUNT (test code = 61348341) 6.5 Thousand/uL 3.8-10.8 N RED BLOOD CELL COUNT (test code = 71988452) 4.12 Million/uL 4.20-5.80 L HEMOGLOBIN (test code = 13165605) 10.0 g/dL 13.2-17.1 L HEMATOCRIT (test code = 52460511) 32.9 % 38.5-50.0 L MCV (test code = 27823737) 79.9 fL 80.0-100.0 L MCH (test code = 14728910) 24.3 pg 27.0-33.0 L MCHC (test code = 34957339) 30.4 g/dL 32.0-36.0 L RDW (test code = 82034862) 14.5 % 11.0-15.0 N PLATELET COUNT (test code = 52598018) 146 Thousand/uL 140-400 N MPV (test code = 01037903) fL 7.5-12.5 N Due to platelet or RBC variability in size or shapethe result cannot be reported accurately. ABSOLUTE NEUTROPHILS (test code = 55609978) 4368 cells/uL 0925-1727 N ABSOLUTE LYMPHOCYTES (test code = 51844654) 1599 cells/uL 850-3900 N ABSOLUTE MONOCYTES (test code = 79857253) 280 cells/uL 200-950 N ABSOLUTE EOSINOPHILS (test code = 75335920) 241 cells/uL 15-500 N ABSOLUTE BASOPHILS (test code = 74843988) 13 cells/uL 0-200 N NEUTROPHILS (test code = 57120723) 67.2 % N LYMPHOCYTES (test code = 02848243) 24.6 % N MONOCYTES (test code = 29060883) 4.3 % N EOSINOPHILS (test code = 48014093) 3.7 % N BASOPHILS (test code = 49622804) 0.2 % N [facility] HOSPITALTHYROID PANEL [id number] 21:25:00* Test Item Value Reference Range Interpretation Comme nts T3 UPTAKE (test code = 57425937) 34 % 22-35 N T4 (THYROXINE), TOTAL (test code = 19531754) 6.4 mcg/dL 4.9-10.5 N FREE T4 INDEX (T7) (test cod e = 37960148) 2.2 1.4-3.8 N TSH (test code = 89285398) 1.55 mIU/L 0.40-4.50 N [facility] [id number] 21:25:00* Test Item Value Reference Range Interpretation Comme [facility] GLUCOSE (test code = 29445920) 141 mg/dL 65-99 H Fasting referenc e interval For someone without known diabetes, a glucosevalue >125 mg/dL indicates that they may havediabetes and this should be confirmed with afollow-up test. UREA NITROGEN (BUN) (test code = 42534619) 18 mg/dL 7-25 N CREATININE (test code = 19235038) 0.66 mg/dL 0.70-1.30 L EGFR (test code = 75743225) 109 mL/min/1.73m2 >=60 N BUN/CREATININE RATIO (test code = 49855288) 27 (calc) 6-22 H SODIUM (test code = 80809802) 137 mmol/L 135-146 N POTASSIUM (test code = 53208202) 3.9 mmol/L 3.5-5.3 N CHLORIDE (test code = 75133939) 100 mmol/L 98-110 N CARBON DIOXIDE (test code = 12621883) 28 mmol/L 20-32 N CALCIUM (test code = 21467135) 8.6 mg/dL 8.6-10.3 N [facility] (DIFF/PLT)2023-11-10 21:25:00* Test Item Value Reference Range Interpretation Comme [facility] WHITE BLOOD CELL COUNT (test code = 28821398) 7.6 Thousand/uL 3.8-10.8 N RED BLOOD CELL COUNT (test code = 46591144) 4.35 Million/uL 4.20-5.80 N HEMOGLOBIN (test code = 01535433) 10.5 g/dL 13.2-17.1 L HEMATOCRIT (test code = 92264599) 34.7 % 38.5-50.0 L MCV (test code = 65798280) 79.8 fL 80.0-100.0 L MCH (test code = 24489857) 24.1 pg 27.0-33.0 L MCHC (test code = 75226720) 30.3 g/dL 32.0-36.0 L RDW (test code = 52953603) 14.4 % 11.0-15.0 N PLATELET COUNT (test code = 58795684) 159 Thousand/uL 140-400 N MPV (test code = 07952489) fL 7.5-12.5 N Due to platelet or RBC variability in size or shapethe result cannot be reported accurately. ABSOLUTE NEUTROPHILS (test code = 62516143) 5046 cells/uL 3312-4653 N ABSOLUTE LYMPHOCYTES (test code = 36898284) 2006 cells/uL 850-3900 N ABSOLUTE MONOCYTES (test code = 46361860) 319 cells/uL 200-950 N ABSOLUTE EOSINOPHILS (test code = 92645449) 198 cells/uL 15-500 N ABSOLUTE BASOPHILS (test code = 23827192) 30 cells/uL 0-200 N NEUTROPHILS (test code = 96999286) 66.4 % N LYMPHOCYTES (test code = 23039132) 26.4 % N MONOCYTES (test code = 34220902) 4.2 % N EOSINOPHILS (test code = 37029374) 2.6 % N BASOPHILS (test code = 25255953) 0.4 % N [facility] W/RFL [id number] 21:25:00* Test Item Value Reference Range Interpretation Comme nts COLOR (test code = 82680989) DARK YELLOW YELLOW N APPEARANCE (test code = 80577306) CLOUDY CLEAR A SPECIFIC GRAVITY (test code = 39290391) 1.021 1.001-1.035 N PH (test code = 39876176) 5.5 5.0-8.0 N GLUCOSE (test code = 55291710) NEGATIVE NEGATIVE N BILIRUBIN (test code = 79257178) NEGATIVE NEGATIVE N KETONES (test code = 63855959) TRACE NEGATIVE A OCCULT BLOOD (test code = 86039644) NEGATIVE NEGATIVE N PROTEIN (test code = 03372634) 1+ NEGATIVE A NITRITE (test code = 91184913) NEGATIVE NEGATIVE N LEUKOCYTE ESTERASE (test code = 87794648) 2+ NEGATIVE A WBC (test code = 66565619) > OR = 60 /HPF 0-5 A RBC (test code = 51481661) NONE SEEN /HPF 0-2 N SQUAMOUS EPITHELIAL CELLS (test code = 12447858) NONE SEEN /HPF <=5 N BACTERIA (test code = 56463737) MANY /HPF NONE SEEN A HYALINE CAST (test code = 98843390) NONE SEEN /LPF NONE SEEN N NOTE (test code = 38306453) This urine was analyzed for the presence of WBC, RBC, bacteria, casts, and other formed elements. Only those elements seen were reported. [facility], UR [id number] 21:25:00* Test Item Value Reference Range Interpretation Comme nts SOURCE: (test code = 25266532) URINE STATUS: (test code = 98793390) FINAL ISOLATE 1: (test code = 87463625) Enterobacter cloacae complex A [facility],[id number] 21:25:00* Test Item Value Reference Range Interpretation Comme nts ISOLATE (test code = 58641026) N Enterobacter [place] acae complex AMOXICILLIN/CLAVULANI C (test code = 66833593) 16 R CEFAZOLIN (test code = 18301833) >=64 R For uncomplicate d UTI caused by E. coli,K. pneumoniae or P. mirabilis: Cefazolin issusceptible if LISETTE <32 mcg/mL and predictssusceptible to the oral agents cefaclor, cefdinir,cefpodoxime, cefprozil, cefuroxime, cephalexinand loracarbef. CEFTAZIDIME (test code = 42208156) <=1 S CEFEPIME (test code = 27431644) <=1 S CEFTRIAXONE (test code = 19452205) <=1 S CIPROFLOXACIN (test code = 27711209) <=0.25 S LEVOFLOXACIN (test code = 03763423) <=0.12 S GENTAMICIN (test code = 32283860) <=1 S IMIPENEM (test code = 40185482) <=0.25 S NITROFURANTOIN (test code = 90723655) 64 I PIPERACILLIN/TAZOBACT AM (test code = 62436358) <=4 S TOBRAMYCIN (test code = 16542851) <=1 S TRIMETHOPRIM/SULFA (test code = 65989052) >=320 R Legend:S = Susce ptible I = IntermediateR = Resistant NS = Not susceptible* = Not tested NR = Not reportedNN = See antimicrobic comments [facility] [id number] 21:25:00* Test Item Value Reference Range Interpretation Comme nts REFLEXIVE URINE CULTURE (test code = 97474981) CULTURE I NDICATED - RESULTS TO FOLLOW [facility] [id number] 10:09:00* Test Item Value Reference Range Interpretation Comme [facility] GLUCOSE (test code = 96861733) 141 mg/dL 65-99 H Fasting referenc e interval For someone without known diabetes, a glucosevalue >125 mg/dL indicates that they may havediabetes and this should be confirmed with afollow-up test. UREA NITROGEN (BUN) (test code = 16776747) 18 mg/dL 7-25 N CREATININE (test code = 57497397) 0.66 mg/dL 0.70-1.30 L EGFR (test code = 81676398) 109 mL/min/1.73m2 >=60 N BUN/CREATININE RATIO (test code = 97506278) 27 (calc) 6-22 H SODIUM (test code = 47771500) 137 mmol/L 135-146 N POTASSIUM (test code = 38695411) 3.9 mmol/L 3.5-5.3 N CHLORIDE (test code = 70185096) 100 mmol/L 98-110 N CARBON DIOXIDE (test code = 01358315) 28 mmol/L 20-32 N CALCIUM (test code = 21308448) 8.6 mg/dL 8.6-10.3 N [facility]-10 10:09:00* Test Item Value Reference Range Interpretation Comme nts WHITE BLOOD CELL COUNT (test code = 35409940) 7.6 Thousand/uL 3.8-10.8 N RED BLOOD CELL COUNT (test code = 74486914) 4.35 Million/uL 4.20-5.80 N HEMOGLOBIN (test code = 32908554) 10.5 g/dL 13.2-17.1 L HEMATOCRIT (test code = 19154492) 34.7 % 38.5-50.0 L MCV (test code = 35805309) 79.8 fL 80.0-100.0 L MCH (test code = 20130219) 24.1 pg 27.0-33.0 L MCHC (test code = 91489649) 30.3 g/dL 32.0-36.0 L RDW (test code = 34065513) 14.4 % 11.0-15.0 N PLATELET COUNT (test code = 40904009) 159 Thousand/uL 140-400 N MPV (test code = 19568463) fL 7.5-12.5 N Due to platelet or RBC variability in size or shapethe result cannot be reported accurately. ABSOLUTE NEUTROPHILS (test code = 76943214) 5046 cells/uL 8993-9789 N ABSOLUTE LYMPHOCYTES (test code = 61736758) 2006 cells/uL 850-3900 N ABSOLUTE MONOCYTES (test code = 62533512) 319 cells/uL 200-950 N ABSOLUTE EOSINOPHILS (test code = 34532038) 198 cells/uL 15-500 N ABSOLUTE BASOPHILS (test code = 83921021) 30 cells/uL 0-200 N NEUTROPHILS (test code = 83578913) 66.4 % N LYMPHOCYTES (test code = 59399324) 26.4 % N MONOCYTES (test code = 49725239) 4.2 % N EOSINOPHILS (test code = 28625138) 2.6 % N BASOPHILS (test code = 95676337) 0.4 % N [facility] W/RFL [id number] 10:09:00* Test Item Value Reference Range Interpretation Comme nts COLOR (test code = 61574711) DARK YELLOW YELLOW N APPEARANCE (test code = 29587978) CLOUDY CLEAR A SPECIFIC GRAVITY (test code = 01924362) 1.021 1.001-1.035 N PH (test code = 23175003) 5.5 5.0-8.0 N GLUCOSE (test code = 74484681) NEGATIVE NEGATIVE N BILIRUBIN (test code = 05231179) NEGATIVE NEGATIVE N KETONES (test code = 27178414) TRACE NEGATIVE A OCCULT BLOOD (test code = 96498403) NEGATIVE NEGATIVE N PROTEIN (test code = 97663615) 1+ NEGATIVE A NITRITE (test code = 40291481) NEGATIVE NEGATIVE N LEUKOCYTE ESTERASE (test code = 69572589) 2+ NEGATIVE A WBC (test code = 39074992) > OR = 60 /HPF 0-5 A RBC (test code = 18264598) NONE SEEN /HPF 0-2 N SQUAMOUS EPITHELIAL CELLS (test code = 41066728) NONE SEEN /HPF <=5 N BACTERIA (test code = 61084156) MANY /HPF NONE SEEN A HYALINE CAST (test code = 95534713) NONE SEEN /LPF NONE SEEN N NOTE (test code = 23929621) This urine was analyzed for the presence of WBC, RBC, bacteria, casts, and other formed elements. Only those elements seen were reported. [facility] [place] [id number] 10:09:00* Test Item Value Reference Range Interpretation Comme nts SOURCE: (test code = 14053385) URINE STATUS: (test code = 25172112) PRELIMINARY ISOLATE 1: (test code = 49071433) Gram negative bacilli isolated A [facility],[id number] 10:09:00* Test Item Value Reference Range Interpretation Comme nts ISOLATE (test code = 09535604) N Gram negative ba cilli isolated [facility] [place] [id number] 10:09:00* Test Item Value Reference Range Interpretation Comme nts REFLEXIVE URINE CULTURE (test code = 00295278) CULTURE I NDICATED - RESULTS TO FOLLOW [facility] [id number] 10:09:00* Test Item Value Reference Range Interpretation Comme nts T3 UPTAKE (test code = 09446149) 34 % 22-35 N T4 (THYROXINE), TOTAL (test code = 29837196) 6.4 mcg/dL 4.9-10.5 N FREE T4 INDEX (T7) (test cod e = 88722689) 2.2 1.4-3.8 N TSH (test code = 68680842) 1.55 mIU/L 0.40-4.50 N [facility]ITAL[facility] META [id number] 21:49:00* Test Item Value Reference Range Interpretation Comme nts GLUCOSE (test code = 19948634) 117 mg/dL 65-99 H Fasting referenc e interval For someone without known diabetes, a glucose valuebetween 100 and 125 mg/dL is consistent withprediabetes and should be confirmed with afollow-up test. UREA NITROGEN (BUN) (test code = 72189310) 18 mg/dL 7-25 N CREATININE (test code = 76670061) 0.61 mg/dL 0.70-1.30 L EGFR (test code = 84638528) 111 mL/min/1.73m2 >=60 N BUN/CREATININE RATIO (test code = 70054632) 30 (calc) 6-22 H SODIUM (test code = 13809226) 137 mmol/L 135-146 N POTASSIUM (test code = 39186330) 4.4 mmol/L 3.5-5.3 N CHLORIDE (test code = 72724115) 102 mmol/L 98-110 N CARBON DIOXIDE (test code = 77470369) 26 mmol/L 20-32 N CALCIUM (test code = 60736984) 8.7 mg/dL 8.6-10.3 N PROTEIN, TOTAL (test code = 79966595) 6.5 g/dL 6.1-8.1 N ALBUMIN (test code = 28714265) 3.7 g/dL 3.6-5.1 N GLOBULIN (test code = 82940600) 2.8 g/dL (calc) 1.9-3.7 N ALBUMIN/GLOBULIN RATIO (test code = 32747423) 1.3 (calc) 1.0-2.5 N BILIRUBIN, TOTAL (test code = 99178288) 0.5 mg/dL 0.2-1.2 N ALKALINE PHOSPHATASE (test code = 65518982) 112 U/L 35-144 N AST (test code = 55987298) 17 U/L 10-35 N ALT (test code = 68156215) 17 U/L 9-46 N [facility] WITH [id number] 21:49:00* Test Item Value Reference Range Interpretation Comme nts INR (test code = 02251252) 1.1 N Reference Range 0.9-1.1Moderate-intensity Warfarin Therapy 2.0-3.0Higher-intensity Warfarin Therapy 3.0-4.0 PT (test code = 87656136) 11.4 sec 9.0-11.5 N For additional information, please refer [email or web address] (This link is being provided for informational/educational purposes only.) [facility] (DIFF/PLT)2023-11-09 21:49:00* Test Item Value Reference Range Interpretation Comme nts WHITE BLOOD CELL COUNT (test code = 15996464) 8.0 Thousand/uL 3.8-10.8 N RED BLOOD CELL COUNT (test code = 97950923) 4.25 Million/uL 4.20-5.80 N HEMOGLOBIN (test code = 83975491) 10.1 g/dL 13.2-17.1 L HEMATOCRIT (test code = 23769708) 33.9 % 38.5-50.0 L MCV (test code = 67741953) 79.8 fL 80.0-100.0 L MCH (test code = 43940979) 23.8 pg 27.0-33.0 L MCHC (test code = 16626788) 29.8 g/dL 32.0-36.0 L RDW (test code = 66277803) 14.5 % 11.0-15.0 N PLATELET COUNT (test code = 49077530) 149 Thousand/uL 140-400 N MPV (test code = 39119418) fL 7.5-12.5 N Due to platelet or RBC variability in size or shapethe result cannot be reported accurately. ABSOLUTE NEUTROPHILS (test code = 09015310) 5928 cells/uL 5837-3482 N ABSOLUTE LYMPHOCYTES (test code = 08625881) 1560 cells/uL 850-3900 N ABSOLUTE MONOCYTES (test code = 96312477) 336 cells/uL 200-950 N ABSOLUTE EOSINOPHILS (test code = 83551322) 160 cells/uL 15-500 N ABSOLUTE BASOPHILS (test code = 15291560) 16 cells/uL 0-200 N NEUTROPHILS (test code = 10737548) 74.1 % N LYMPHOCYTES (test code = 52755681) 19.5 % N MONOCYTES (test code = 29074049) 4.2 % N EOSINOPHILS (test code = 73641267) 2.0 % N BASOPHILS (test code = 68078891) 0.2 % N [facility] [id number] 20:16:00* Test Item Value Reference Range Interpretation Comme nts HEMOGLOBIN A1c (test code = 22776475) 10.3 % of total Hgb <5.7 H For someone without known diabetes, a hemoglobin E7ibavwn of 6.5% or greater indicates that they [...] shifted HbA1c results compared to historical results. [facility]
[2025-03-09] MEDS ORDERED: ALTEPLASE 2 MG/VIAL IV ONE (13:56)
[2025-03-09] MEDS ORDERED: WATER FOR INJ,STERILE 10 ML ONE (14:07)
--- NOTE | 2025-03-09 14:34 | ER ---
Nurse's Notes [facility] Name: Tej Kumar Age: 59 yrs Sex: Male : 1965 Arrival Date: 03/09/2025 Time: 13:21 Bed 23 Private MD: Diagnosis: Other mechanical complication of infusion catheter, initial encounter Presentation: 03/09 13:50 Chief complaint: Patient states: My picc line isn't working. Coronavirus screen: At jb4 this time, the client does not indicate any symptoms associated with coronavirus-19. Ebola Screen: (+) Ebola Screening. Initial Sepsis Screen: Does the patient meet any 2 criteria? No. Patient's initial sepsis screen is negative. Does the patient have a suspected source of infection? No. Patient's initial sepsis screen is negative. Risk Assessment: Do you want to hurt yourself or someone else? Patient reports no desire to harm self or others. Onset of symptoms was March 09, 2025. Transition of care: patient was not received from another setting of care. 13:50 Method Of Arrival: EMS: [facility] jb4 13:50 Acuity: DAVID 5 jb4 Historical: - Allergies: 13:51 unknown antibiotic and steroid; jb4 - PMHx: 13:51 Congestive heart failure; CVA; diabetes mellitus; Hypercholesterolemia; Hypertensive jb4 disorder; - PSHx: 13:51 Colostomy; right AKA; jb4 - Immunization history:: Adult Immunizations up to date. - Infectious Disease History:: Denies. - Social history:: Smoking status: Patient denies any tobacco usage or history of. Screenin:58 [facility] ED Fall Risk Assessment (Adult) History of falling in the last 3 months, jb4 including since admission No falls in past 3 months (0 pts) Confusion or Disorientation No (0 pts) Intoxicated or Sedated No (0 pts) Impaired Gait No (0 pts) Mobility Assist Device Used No (0 pt) Altered Elimination No (0 pt) Score/Fall Risk Level 0 - 2 = Low Risk Oriented to surroundings, Maintained a safe environment. 17:59 Abuse screen: Denies threats or abuse. Nutritional screening: No deficits noted. jb4 Tuberculosis screening: No symptoms or risk factors identified. Assessment: 13:45 General: Appears in no apparent distress. comfortable, Behavior is calm, cooperative, jb4 appropriate for age. Pain: Denies pain. Neuro: Level of Consciousness is awake, alert, obeys commands, Oriented to person, place, time, situation. Cardiovascular: Patient's skin is warm and dry. Respiratory: Airway is patent Respiratory effort is even, unlabored, Respiratory pattern is regular, symmetrical. Derm: Skin is intact. 15:00 Reassessment: Patient appears in no apparent distress at this time. Patient and/or jb4 family updated on plan of care and expected duration. Pain level reassessed. Patient is alert, oriented x 3, equal unlabored respirations, skin warm/dry/pink. 15:30 Reassessment: d/c pending transportation home. jb4 16:00 Reassessment: Patient appears in no apparent distress at this time. Patient and/or jb4 family updated on plan of care and expected duration. Pain level reassessed. Patient is alert, oriented x 3, equal unlabored respirations, skin warm/dry/pink. 17:00 Reassessment: Patient appears in no apparent distress at this time. Patient and/or jb4 family updated on plan of care and expected duration. Pain level reassessed. Patient is alert, oriented x 3, equal unlabored respirations, skin warm/dry/pink. Vital Signs: 13:54 BP 110 / 58; Pulse 76; Resp 16; Temp 97.9(O); Pulse Ox 98% ; jb4 14:12 Weight 99.79 kg (R); jb4 ED Course: 13:24 Patient arrived in ED. sb4 13:24 [facility] sb[facility] 13:24 Cr Ford MD is Attending Physician. sb4 13:45 Patient has correct armband on for positive identification. Bed in low position. Call jb4 light in reach. Side rails up X 1. Provided Education on: plan of care. 13:51 Triage completed. jb4 13:51 Arm band placed on right wrist. jb4 16:32 [facility] on another transfer and calls. ty 16:40 [place] on another transfer. ty 16:48 [facility] ambulance ETA 1 hr. ty 17:56 Ravinder Alexander, RN is Primary Nurse. jb4 18:00 No provider procedures requiring assistance completed. Prior placed picc line remains jb4 in place, now functioning properly. Administered Medications: 14:23 Drug: Cathflo Activase IV Thrombolytics 2 mg IV Thrombolytics once; into each catheter jb4 lumen, may repeat once {Note: 1mg to each port administered by JUANJO Noriega.} Route: IV Thrombolytics; 17:15 Follow up: Response: No adverse reaction; Marked relief of symptoms jb4 17:15 Drug: [place] PO 10 mg-325 mg 1 tabs PO once Route: PO; jb4 17:58 Follow up: Response: No adverse reaction; Marked relief of symptoms jb4 Medication: 17:58 VIS not applicable for this client. jb4 Outcome: 14:33 Discharge ordered by . sb4 18:00 Discharged to home via ambulance, jb4 18:00 Condition: stable 18:00 Discharge instructions given to patient, Instructed on discharge instructions, follow up and referral plans. Demonstrated understanding of instructions, follow-up care, 18:00 Patient left the ED. jb4 Signatures: Ravinder Alexander RN RN jb4 Manjula Truong PA-C PA-C sb4 Bubba Saul Corrections: (The following items were deleted from the chart) 18:03 17:58 Reassessment: d/c pending transportation home jb4 jb4
--- NOTE | 2025-03-09 14:34 | EDPHYS ---
Physician Documentation [facility] Name: Tej Kumar Age: 59 yrs Sex: Male : 1965 Arrival Date: 03/09/2025 Time: 13:21 Bed 23 Private MD: ED Physician Cr Ford HPI: 03/09 13:27 This 59 yrs old Male presents to ER via Unassigned with complaints of picc sb4 line problem. 13:27 home health called EMS because picc line was unable to flush today. 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 no pain, no other complaints. Historical: - Allergies: 13:51 unknown antibiotic and steroid; jb4 - PMHx: 13:51 Congestive heart failure; CVA; diabetes mellitus; Hypercholesterolemia; Hypertensive jb4 disorder; - PSHx: 13:51 Colostomy; right AKA; jb4 - Immunization history:: Adult Immunizations up to date. - Infectious Disease History:: Denies. - Social history:: Smoking status: Patient denies any tobacco usage or history of. ROS: 13:29 Constitutional: Negative for fever, chills, and weight loss, sb4 13:29 All other systems are negative, Exam: 13:32 Constitutional: This is a well developed, well nourished patient who is awake, alert, sb4 and in no acute distress. Head/Face: Normocephalic, atraumatic. Eyes: Extra-ocular motions intact. Periorbital areas with no swelling, redness, or edema. ENT: Mucous membranes moist. 13:32 Respiratory: No increased work of breathing, no retractions or nasal flaring. Skin: Warm, dry with normal turgor. Normal color with no rashes, no lesions, and no evidence of cellulitis. 13:32 Skin: picc line left bicep region- no swelling, redness, erythema, induration. Vital Signs: 13:54 BP 110 / 58; Pulse 76; Resp 16; Temp 97.9(O); Pulse Ox 98% ; jb4 14:12 Weight 99.79 kg (R); jb4 MDM: 13:24 Medical Screening Exam initiated sb4 14:32 Data reviewed: vital signs, nurses notes, EMS record, and as a result, I will discharge sb4 patient. Counseling: I had a detailed discussion with the patient and/or guardian regarding the historical points, exam findings, and any diagnostic results supporting the discharge/admit diagnosis, the need for outpatient follow up, for definitive care, to return to the emergency department if symptoms worsen or persist or if there are any questions or concerns that arise at home. Administered Medications: 14:23 Drug: Cathflo Activase IV Thrombolytics 2 mg IV Thrombolytics once; into each catheter jb4 lumen, may repeat once {Note: 1mg to each port administered by JUANJO Noriega.} Route: IV Thrombolytics; 17:15 Follow up: Response: No adverse reaction; Marked relief of symptoms jb4 17:15 Drug: [place] PO 10 mg-325 mg 1 tabs PO once Route: PO; jb4 17:58 Follow up: Response: No adverse reaction; Marked relief of symptoms jb4 Disposition Summary: 03/09/25 14:33 Discharge Ordered Notes: Location: Home sb4 Problem: new sb4 Symptoms: are resolved sb4 Condition: Stable sb4 Diagnosis - Other mechanical complication of infusion catheter, initial encounter sb4 Followup: sb4 - With: Private Physician - When: 1 week - Reason: Recheck today's complaints, Re-evaluation by your physician Discharge Instructions: - Discharge Summary Sheet sb4 - PICC Home Care Guide sb4 Forms: - Patient Portal Instructions sb4 - Leadership Thank You Letter sb4 Signatures: Ravinder Alexander RN RN jb4 Manjula Truong PA-C PA-C sb4
[2025-03-09] MEDS ORDERED: HYDROCODONE/APAP 10/325 TAB ONE (17:13)
[2025-03-09 18:12] VITALS: BP 110/58; TEMP 97.9; O2SAT 98
== END 2025-03-09 18:00 | disposition home or self-care (01) ==
LOC: ER 13:21
DX: T82.898A Other specified complication of vascular prosthetic devices, implants and grafts, initial encounter (principal)
CPT/HCPCS: 92977; 99284; J2997